=== PATIENT | male | born 1950 | race Caucasian/White ===

== ENCOUNTER 2019-12-10 09:14 | Inpatient (IN) ==
--- NOTE | 2019-12-10 09:43 | Emergency Department Note ---
Impression & Plan COVID-19 virus detected, Fever, Acute dehydration ED Provider Note NAME: JB MELTON AGE: 69 SEX: M : 1950 ARRIVES VIA: Ambulance INFORMANT: Patient, ED PROVIDER(S): John Vance MD Chief Complaint: Fever, lethargy HPI: Most of history is obtained from nursing and the history is limited. Patient does present from one went home where there are coronavirus cases due to concern for fever and lethargy. The patient does open eyes to voice and will answer basic questions and follow basic commands. The patient apparently has had some dehydration type symptoms. Unknown as to the total length of fever. ROS: Limited secondary to patient clinical condition. Past medical history: See below Surgical history: See below Social history: See below Physical Exam: GENERAL: Ill in appearance, wearing a mask. EYE EXAM: Normal conjunctiva. PERRL, no anisocoria, mild bilateral clear drainage without proptosis or preseptal cellulitis. OROPHARYNX: Dry mucous membranes noted. NECK: Supple, no nuchal rigidity, no adenopathy, non-tender. No signs of meningismus. LUNGS: Normal chest wall mechanics, no audible wheezing. HEART: NSR. ABDOMEN: Abdomen soft, non-tender, normo-active bowel sounds, no masses, no rebound or guarding. BACK: No CVA TTP. SKIN: No rashes and no bruising. UPPER EXTREMITIES: Upper extremities are grossly normal. LOWER EXTREMITIES: Left BKA, and right TMA noted. No obvious wounds. NEURO EXAM: Opens eyes to voice, name and date of is appropriate, follows basic commands and does move all 4 extremities weakly but with no focal deficit no obvious facial droop. Differential diagnoses: Sepsis, UTI, pneumonia, metabolic, electrolyte abnormalities, cardiac sources, intracerebral event, toxicologic, neurologic, as well as other pathologies. Course: Patient was seen and evaluated the bedside. Full history physical exam was performed. EKG: Indication: Fever Normal sinus rhythm, rate 95, normal intervals, normal axis, no ST changes or T WI. No prior EKGs for comparison. Imaging Studies: Radiology results as stated below per my review in the radiologist's i nterpretation: XR chest 1V portable HISTORY: SEPSIS COMPARISON: None. FINDINGS: Slightly rotated study. This likely results in the hazy appearance within the left hemithorax. A few bibasilar linear densities favor subsegmental atelectasis or scarring. Suspect a punctate calcified granuloma within the right lung base. Old, healed right-sided rib fractures. The heart is normal in size. Mitral annulus calcifications are noted. IMPRESSION: No acute process. ACT 112: Negative or not required by law. Electronically signed by: Lane Leavitt M.D. 12/10/2019 10:37 AM Dictated: 12/10/19 1036 Transcribed: 12/10/19 1036 Cardiac monitoring: An order was placed for continuous cardiac monitoring. The monitor shows a rate of 94 with sinus rhythm. MDM: Patient does present from [facility] due to concern for lethargy and weakness. Patient also does have fever. Patient was placed in isolation for PPE was worn in the patient's room. Patient's white blood cell count is normal with mild lymphopenia. Virtually normal hemoglobin but slightly anemic at 13. Kidney function is unremarkable but likely prerenal. Patient did receive IV fluids. Procalcitonin is slightly elevated at 1.6. Magnesium is elevated. The patient's coronavirus testing is positive. Negative for flu. MRSA negative. Patient had empirically received Zosyn but his chest x-ray is negative. I did speak to the on-call hospitalist Dr. Monson who agreed to further evaluate. Treat patient. Patient was admitted to the medicine service. Past Med/Surg History Social History Preferred Language: Bahamian Communication Ability: Impaired Communication Ability Comment: responds at joan [employer] Ce[employer] & President Required: No Beliefs That Will Affect Care: None Current Living Situation: Personal Care Facility Current Living Situation Comment: [facility] Feels Safe at Home: Yes Safety Concerns: Feels Safe At This Time Smoking Status: Never smoker Do You Dip or Chew Tobacco: No ; Second Hand Exposure: No ; Tobacco Cessation Education Requested by Patient: No Hx Alcohol Use: No Allergies Allergies Allergy/AdvReac Type Severity Reaction Status Date / Time Unable to Assess Allergy Unverified 12/10/19 11:37 Home Meds Home Medications Medication Instructions Recorded Confirmed Unobtainable 12/10/19 12/10/19 Results & Data (ED) Vital Signs Vital Signs - 24 hr 12/10/19 09:14 12/10/19 09:15 12/10/19 09:36 Temperature 37.6 C H Temperature Source Oral Pulse Rate 92 H 97 H 98 H Pulse Rate from SpO2 Sensor 98 H Respiratory Rate 24 20 21 Respiratory Effort / Characteristics Non-Labored Respiratory Depth Normal Blood Pressure 101/80 101/80 Blood Pressure Mean 87 95 Pulse Oximetry 95 98 94 Oxygen Delivery Method Nasal Cannula Room Air Nasal Cannula Oxygen Flow Rate 2 2 Sepsis Recent Fever Within 48 Hours Yes Sepsis Action Taken by Nursing No Action Required 12/10/19 09:41 12/10/19 09:45 12/10/19 09:58 Temperature Temperature Source Pulse Rate 101 H 98 H 100 H Pulse Rate from SpO2 Sensor 102 H 98 H 100 H Respiratory Rate 21 19 20 Respiratory Effort / Characteristics Respiratory Depth Blood Pressure 128/101 H Blood Pressure Mean 107 Pulse Oximetry 96 97 98 Oxygen Delivery Method Nasal Cannula Nasal Cannula Nasal Cannula Oxygen Flow Rate 2 2 2 Sepsis Recent Fever Within 48 Hours Sepsis Action Taken by Nursing 12/10/19 10:00 12/10/19 10:01 12/10/19 10:15 Temperature Temperature Source Pulse Rate 95 H 94 H 93 H Pulse Rate from SpO2 Sensor 95 H 95 H 94 H Respiratory Rate 17 18 17 Respiratory Effort / Characteristics Respiratory Depth Blood Pressure 146/93 H Blood Pressure Mean 109 Pulse Oximetry 98 98 98 Oxygen Delivery Method Nasal Cannula Nasal Cannula Nasal Cannula Oxygen Flow Rate 2 2 2 Sepsis Recent Fever Within 48 Hours Sepsis Action Taken by Nursing 12/10/19 10:30 12/10/19 10:45 12/10/19 11:00 Temperature Temperature Source Pulse Rate 92 H 93 H 92 H Pulse Rate from SpO2 Sensor 92 H 93 H 92 H Respiratory Rate 24 25 H 24 Respiratory Effort / Characteristics Respiratory Depth Blood Pressure Blood Pressure Mean Pulse Oximetry 98 98 98 Oxygen Delivery Method Nasal Cannula Nasal Cannula Nasal Cannula Oxygen Flow Rate 2 2 2 Sepsis Recent Fever Within 48 Hours Sepsis Action Taken by Nursing 12/10/19 11:15 12/10/19 11:27 12/10/19 11:30 Temperature Temperature Source Pulse Rate 85 92 H 89 Pulse Rate from SpO2 Sensor 85 93 H 89 Respiratory Rate 20 22 24 Respiratory Effort / Characteristics Respiratory Depth Blood Pressure 170/60 H 150/63 H Blood Pressure Mean 91 96 Pulse Oximetry 99 98 98 Oxygen Delivery Method Nasal Cannula Nasal Cannula Nasal Cannula Oxygen Flow Rate 2 2 2 Sepsis Recent Fever Within 48 Hours Sepsis Action Taken by Nursing 12/10/19 11:31 12/10/19 11:45 12/10/19 12:00 Temperature Temperature Source Pulse Rate 86 86 91 H Pulse Rate from SpO2 Sensor 87 86 91 H Respiratory Rate 23 22 22 Respiratory Effort / Characteristics Respiratory Depth Blood Pressure Blood Pressure Mean Pulse Oximetry 98 97 97 Oxygen Delivery Method Nasal Cannula Nasal Cannula Nasal Cannula Oxygen Flow Rate 2 2 2 Sepsis Recent Fever Within 48 Hours Sepsis Action Taken by Nursing 12/10/19 12:01 12/10/19 12:02 12/10/19 12:15 Temperature Temperature Source Pulse Rate 91 H 87 88 Pulse Rate from SpO2 Sensor 92 H 87 87 Respiratory Rate 22 24 24 Respiratory Effort / Characteristics Respiratory Depth Blood Pressure 129/92 Blood Pressure Mean 101 Pulse Oximetry 97 97 96 Oxygen Delivery Method Nasal Cannula Nasal Cannula Nasal Cannula Oxygen Flow Rate 2 2 2 Sepsis Recent Fever Within 48 Hours Sepsis Action Taken by Nursing 12/10/19 12:30 12/10/19 12:31 12/10/19 12:45 Temperature Temperature Source Pulse Rate 92 H 88 84 Pulse Rate from SpO2 Sensor 91 H 88 85 Respiratory Rate 19 14 19 Respiratory Effort / Characteristics Respiratory Depth Blood Pressure 143/111 H Blood Pressure Mean 117 Pulse Oximetry 96 96 98 Oxygen Delivery Method Nasal Cannula Nasal Cannula Oxygen Flow Rate 2 2 Sepsis Recent Fever Within 48 Hours Sepsis Action Taken by Shelter Medications Current Medication List: was personally reviewed by me Laboratory Data Attestation: I reviewed the patient's lab results. Result diagrams: 12/10/19 09:45 12/10/19 09:45 Lab Results 12/10/19 12/10/19 12/10/19 Range/Units 09:39 09:40 09:40 WBC (4.8-10.8) K/uL RBC (4.7-6.1) M/uL Hgb (14.0-18.0) g/dL Hct (42-52) % MCV (80-100) fL MCH (25-34) pg MCHC (32-36) g/dL RDW Std Deviation (36.4-46.3) fL RDW Coeff of Jace (11.5-14.5) % Plt Count (130-400) K/uL MPV (7.4-10.4) fL Immature Gran % (Auto) % Neut % (Auto) % Lymph % (Auto) % Hopkins % (Auto) % Eos % (Auto) % Baso % (Auto) % Immature Gran # (Auto) (0.00-0.02) K/uL Neut # (Auto) (1.4-6.5) K/uL Lymph # (Auto) (1.2-3.4) K/uL Hopkins # (Auto) (0.11-0.59) K/uL Eos # (Auto) (0-0.5) K/uL Baso # (Auto) (0-0.2) K/uL ESR (0-14) mm/hr PT (9.0-12.0) Seconds INR (0.9-1.1) APTT (21.0-31.0) Seconds PTT Ratio D-Dimer (0-500) ug/L FEU Sodium (136-145) mmol/L Potassium (3.5-5.1) mmol/L Chloride (98-107) mmol/L Carbon Dioxide (21-32) mmol/L Anion Gap (3-11) BUN (7-18) mg/dl Creatinine (0.6-1.4) mg/dl Est Cr Clr Drug Dosing ml/min Est GFR ( Amer) Est GFR (Non-Af Amer) BUN/Creatinine Ratio (10-20) Glucose (70-99) mg/dl POC Glucose 177 H (70-99) mg/dl Lactate (0.4-2.0) mmol/L Calcium (8.5-10.1) mg/dl Magnesium (1.8-2.4) mg/dl Ferritin (8-388) ng/ml Total Bilirubin (0.2-1) mg/dl AST (15-37) U/L ALT (12-78) U/L Alkaline Phosphatase (45-117) U/L Troponin I (0-0.045) ng/ml C-Reactive Protein (0-0.29) mg/dl Total Protein (6.4-8.2) gm/dl Albumin (3.4-5.0) gm/dl Globulin (2.5-4.0) gm/dl Albumin/Globulin Ratio (0.9-2) 25-OH Vitamin D Total (30-100) ng/ml Procalcitonin Specimen Hemolysis Nasal Screen MRSA (PCR) (Negative) COVID-19 PCR POSITIVE A* (Negative) Influenza Type A (PCR) Neg for Influ A (Neg) Influenza Type B (PCR) Neg for Influ B (Neg) 12/10/19 12/10/19 12/10/19 Range/Units 09:45 09:45 09:45 WBC 6.19 (4.8-10.8) K/uL RBC 4.42 L (4.7-6.1) M/uL Hgb 13.1 L (14.0-18.0) g/dL Hct 38.1 L (42-52) % MCV 86.2 (80-100) fL MCH 29.6 (25-34) pg MCHC 34.4 (32-36) g/dL RDW Std Deviation 44.5 (36.4-46.3) fL RDW Coeff of Jace 14.1 (11.5-14.5) % Plt Count 235 (130-400) K/uL MPV 9.9 (7.4-10.4) fL Immature Gran % (Auto) 0.2 % Neut % (Auto) 74.7 % Lymph % (Auto) 17.0 % Hopkins % (Auto) 7.9 % Eos % (Auto) 0.0 % Baso % (Auto) 0.2 % Immature Gran # (Auto) 0.01 (0.00-0.02) K/uL Neut # (Auto) 4.63 (1.4-6.5) K/uL Lymph # (Auto) 1.05 L (1.2-3.4) K/uL Hopkins # (Auto) 0.49 (0.11-0.59) K/uL Eos # (Auto) 0.00 (0-0.5) K/uL Baso # (Auto) 0.01 (0-0.2) K/uL ESR (0-14) mm/hr PT 9.9 (9.0-12.0) Seconds INR 0.9 (0.9-1.1) APTT 25.3 (21.0-31.0) Seconds PTT Ratio 0.9 D-Dimer (0-500) ug/L FEU Sodium (136-145) mmol/L Potassium (3.5-5.1) mmol/L Chloride (98-107) mmol/L Carbon Dioxide (21-32) mmol/L Anion Gap (3-11) BUN (7-18) mg/dl Creatinine (0.6-1.4) mg/dl Est Cr Clr Drug Dosing ml/min Est GFR ( Amer) Est GFR (Non-Af Amer) BUN/Creatinine Ratio (10-20) Glucose (70-99) mg/dl POC Glucose (70-99) mg/dl Lactate (0.4-2.0) mmol/L Calcium (8.5-10.1) mg/dl Magnesium (1.8-2.4) mg/dl Ferritin (8-388) ng/ml Total Bilirubin (0.2-1) mg/dl AST (15-37) U/L ALT (12-78) U/L Alkaline Phosphatase (45-117) U/L Troponin I (0-0.045) ng/ml C-Reactive Protein (0-0.29) mg/dl Total Protein (6.4-8.2) gm/dl Albumin (3.4-5.0) gm/dl Globulin (2.5-4.0) gm/dl Albumin/Globulin Ratio (0.9-2) 25-OH Vitamin D Total (30-100) ng/ml Procalcitonin Cancelled Specimen Hemolysis Nasal Screen MRSA (PCR) (Negative) COVID-19 PCR (Negative) Influenza Type A (PCR) (Neg) Influenza Type B (PCR) (Neg) 12/10/19 12/10/19 12/10/19 Range/Units 09:45 09:45 10:38 WBC (4.8-10.8) K/uL RBC (4.7-6.1) M/uL Hgb (14.0-18.0) g/dL Hct (42-52) % MCV (80-100) fL MCH (25-34) pg MCHC (32-36) g/dL RDW Std Deviation (36.4-46.3) fL RDW Coeff of Jace (11.5-14.5) % Plt Count (130-400) K/uL MPV (7.4-10.4) fL Immature Gran % (Auto) % Neut % (Auto) % Lymph % (Auto) % Hopkins % (Auto) % Eos % (Auto) % Baso % (Auto) % Immature Gran # (Auto) (0.00-0.02) K/uL Neut # (Auto) (1.4-6.5) K/uL Lymph # (Auto) (1.2-3.4) K/uL Hopkins # (Auto) (0.11-0.59) K/uL Eos # (Auto) (0-0.5) K/uL Baso # (Auto) (0-0.2) K/uL ESR 81 H (0-14) mm/hr PT (9.0-12.0) Seconds INR (0.9-1.1) APTT (21.0-31.0) Seconds PTT Ratio D-Dimer (0-500) ug/L FEU Sodium 137 (136-145) mmol/L Potassium 4.5 (3.5-5.1) mmol/L Chloride 106 (98-107) mmol/L Carbon Dioxide 24 (21-32) mmol/L Anion Gap 8.0 (3-11) BUN 39 H (7-18) mg/dl Creatinine 1.13 (0.6-1.4) mg/dl Est Cr Clr Drug Dosing 56.0 ml/min Est GFR ( Amer) 77.0 Est GFR (Non-Af Amer) 66.4 BUN/Creatinine Ratio 34.5 H (10-20) Glucose 202 H (70-99) mg/dl POC Glucose (70-99) mg/dl Lactate 1.2 (0.4-2.0) mmol/L Calcium 9.5 (8.5-10.1) mg/dl Magnesium 2.9 H (1.8-2.4) mg/dl Ferritin (8-388) ng/ml Total Bilirubin 0.4 (0.2-1) mg/dl AST 41 H (15-37) U/L ALT 25 (12-78) U/L Alkaline Phosphatase 103 (45-117) U/L Troponin I < 0.015 (0-0.045) ng/ml C-Reactive Protein (0-0.29) mg/dl Total Protein 7.9 (6.4-8.2) gm/dl Albumin 3.2 L (3.4-5.0) gm/dl Globulin 4.7 H (2.5-4.0) gm/dl Albumin/Globulin Ratio 0.7 L (0.9-2) 25-OH Vitamin D Total (30-100) ng/ml Procalcitonin Specimen Hemolysis Nasal Screen MRSA (PCR) (Negative) COVID-19 PCR (Negative) Influenza Type A (PCR) (Neg) Influenza Type B (PCR) (Neg) 12/10/19 12/10/19 12/10/19 Range/Units 10:39 10:39 10:44 WBC (4.8-10.8) K/uL RBC (4.7-6.1) M/uL Hgb (14.0-18.0) g/dL Hct (42-52) % MCV (80-100) fL MCH (25-34) pg MCHC (32-36) g/dL RDW Std Deviation (36.4-46.3) fL RDW Coeff of Jace (11.5-14.5) % Plt Count (130-400) K/uL MPV (7.4-10.4) fL Immature Gran % (Auto) % Neut % (Auto) % Lymph % (Auto) % Hopkins % (Auto) % Eos % (Auto) % Baso % (Auto) % Immature Gran # (Auto) (0.00-0.02) K/uL Neut # (Auto) (1.4-6.5) K/uL Lymph # (Auto) (1.2-3.4) K/uL Hopkins # (Auto) (0.11-0.59) K/uL Eos # (Auto) (0-0.5) K/uL Baso # (Auto) (0-0.2) K/uL ESR (0-14) mm/hr PT (9.0-12.0) Seconds INR (0.9-1.1) APTT (21.0-31.0) Seconds PTT Ratio D-Dimer [id number] H* (0-500) ug/L FEU Sodium (136-145) mmol/L Potassium (3.5-5.1) mmol/L Chloride (98-107) mmol/L Carbon Dioxide (21-32) mmol/L Anion Gap (3-11) BUN (7-18) mg/dl Creatinine (0.6-1.4) mg/dl Est Cr Clr Drug Dosing ml/min Est GFR ( Amer) Est GFR (Non-Af Amer) BUN/Creatinine Ratio (10-20) Glucose (70-99) mg/dl POC Glucose (70-99) mg/dl Lactate (0.4-2.0) mmol/L Calcium (8.5-10.1) mg/dl Magnesium (1.8-2.4) mg/dl Ferritin (8-388) ng/ml Total Bilirubin (0.2-1) mg/dl AST (15-37) U/L ALT (12-78) U/L Alkaline Phosphatase (45-117) U/L Troponin I (0-0.045) ng/ml C-Reactive Protein (0-0.29) mg/dl Total Protein (6.4-8.2) gm/dl Albumin (3.4-5.0) gm/dl Globulin (2.5-4.0) gm/dl Albumin/Globulin Ratio (0.9-2) 25-OH Vitamin D Total 23.0 L (30-100) ng/ml Procalcitonin 0.64 H Specimen Hemolysis Nasal Screen MRSA (PCR) (Negative) COVID-19 PCR (Negative) Influenza Type A (PCR) (Neg) Influenza Type B (PCR) (Neg) 12/10/19 12/10/19 Range/Units 10:44 11:15 WBC (4.8-10.8) K/uL RBC (4.7-6.1) M/uL Hgb (14.0-18.0) g/dL Hct (42-52) % MCV (80-100) fL MCH (25-34) pg MCHC (32-36) g/dL RDW Std Deviation (36.4-46.3) fL RDW Coeff of Jace (11.5-14.5) % Plt Count (130-400) K/uL MPV (7.4-10.4) fL Immature Gran % (Auto) % Neut % (Auto) % Lymph % (Auto) % Hopkins % (Auto) % Eos % (Auto) % Baso % (Auto) % Immature Gran # (Auto) (0.00-0.02) K/uL Neut # (Auto) (1.4-6.5) K/uL Lymph # (Auto) (1.2-3.4) K/uL Hopkins # (Auto) (0.11-0.59) K/uL Eos # (Auto) (0-0.5) K/uL Baso # (Auto) (0-0.2) K/uL ESR (0-14) mm/hr PT (9.0-12.0) Seconds INR (0.9-1.1) APTT (21.0-31.0) Seconds PTT Ratio D-Dimer (0-500) ug/L FEU Sodium (136-145) mmol/L Potassium (3.5-5.1) mmol/L Chloride (98-107) mmol/L Carbon Dioxide (21-32) mmol/L Anion Gap (3-11) BUN (7-18) mg/dl Creatinine (0.6-1.4) mg/dl Est Cr Clr Drug Dosing ml/min Est GFR ( Amer) Est GFR (Non-Af Amer) BUN/Creatinine Ratio (10-20) Glucose (70-99) mg/dl POC Glucose (70-99) mg/dl Lactate (0.4-2.0) mmol/L Calcium (8.5-10.1) mg/dl Magnesium (1.8-2.4) mg/dl Ferritin 471.4 H (8-388) ng/ml Total Bilirubin (0.2-1) mg/dl AST (15-37) U/L ALT (12-78) U/L Alkaline Phosphatase (45-117) U/L Troponin I (0-0.045) ng/ml C-Reactive Protein 3.49 H (0-0.29) mg/dl Total Protein (6.4-8.2) gm/dl Albumin (3.4-5.0) gm/dl Globulin (2.5-4.0) gm/dl Albumin/Globulin Ratio (0.9-2) 25-OH Vitamin D Total (30-100) ng/ml Procalcitonin Specimen Hemolysis Nasal Screen MRSA (PCR) Negative (Negative) COVID-19 PCR (Negative) Influenza Type A (PCR) (Neg) Influenza Type B (PCR) (Neg) Administered Medications Discontinued Medications Sodium Chloride (Nss 1000ml) 1,000 mls @ 999 mls/hr IV .[id number] ONE Stop: 12/10/19 10:57 Last Infusion: 12/10/19 11:01 Dose: 0 mls/hr Documented by: [id number] Admin: 12/10/19 10:00 Dose: 999 mls/hr Documented by: [id number] Piperacillin Sod/Tazobactam Sod (Zosyn) 4.5 gm in 120 mls @ 240 mls/hr IV NOW ONE Stop: 12/10/19 10:26 Last Infusion: 12/10/19 11:39 Dose: 0 mls/hr Documented by: [id number] Admin: 12/10/19 11:09 Dose: 240 mls/hr Documented by: [id number] Discharge Plan Visit Data Chief Complaint: Fever ED Provider: John Vance Discharge Problem: COVID-19 virus detected, Fever, Acute dehydration Discharge Instructions Interventions: ED Discharge Assessment Last Done: 12/10/19 13:31 Discharge Problem: Fever Qualifiers: Fever type: unspecified Qualified Code(s): R50.9 - Fever, unspecified
[2019-12-10] MEDS ORDERED: PIPERACILL/TAZOBAC CONSULT ACTIVE PRN (09:57)
[2019-12-10] MEDS ORDERED: PIPERACILLIN/TAZOBACTAM 4.5 GM/120 ML BAG IV ONE (09:57)
[2019-12-10] MEDS ORDERED: SODIUM CHLORIDE 0.9% 1000ML 1,000 ML IV ONE (09:57)
[2019-12-10 10:14] LABS: Basophils # (auto) 0.01 K/uL (0-0.2); Basophils % (auto) 0.2 %; Hematocrit (blood only) 38.1 % (42-52); Hemoglobin 13.1 g/dL (14.0-18.0); Immature Granulocytes # (auto) 0.01 K/uL (0.00-0.02); Immature Granulocytes % (auto) 0.2 %; Lymphocytes # (auto) 1.05 K/uL (1.2-3.4); Mean Corpuscular Hemoglobin 29.6 pg (25-34); Mean Corpuscular Hgb Conc 34.4 g/dL (32-36); Mean Corpuscular Volume 86.2 fL (80-100); Mean Platelet Volume 9.9 fL (7.4-10.4); Monocytes # (auto) 0.49 K/uL (0.11-0.59); Monocytes % (auto) 7.9 %; Neutrophils # (auto) 4.63 K/uL (1.4-6.5); Neutrophils % (auto) 74.7 %; Platelet Count 235 K/uL (130-400); RDW Coefficient of Variation 14.1 % (11.5-14.5); RDW Standard Deviation 44.5 fL (36.4-46.3); Red Blood Count 4.42 M/uL (4.7-6.1); White Blood Count 6.19 K/uL (4.8-10.8)
[2019-12-10 10:27] LABS: INR 0.9 (0.9-1.1); Partial Thromboplastin Ratio 0.9; Partial Thromboplastin Time 25.3 Seconds (21.0-31.0); Prothrombin Time 9.9 Seconds (9.0-12.0)
[2019-12-10 10:35] LABS: Alanine Aminotransferase 25 U/L (12-78); Albumin Globulin Ratio 0.7 (0.9-2); Albumin Level 3.2 gm/dl (3.4-5.0); Alkaline Phosphatase 103 U/L (45-117); Aspartate Aminotransferase 41 U/L (15-37); BUN Creatinine Ratio 34.5 (10-20); Bilirubin,Total 0.4 mg/dl (0.2-1); Blood Urea Nitrogen 39 mg/dl (7-18); Calcium 9.5 mg/dl (8.5-10.1); Carbon Dioxide 24 mmol/L (21-32); Chloride 106 mmol/L (98-107); Est GFR (Non-African American) 66.4; Globulin 4.7 gm/dl (2.5-4.0); Glucose 202 mg/dl (70-99); Magnesium 2.9 mg/dl (1.8-2.4); Potassium 4.5 mmol/L (3.5-5.1); Sodium 137 mmol/L (136-145); Total Protein 7.9 gm/dl (6.4-8.2); Troponin I < 0.015 ng/ml (0-0.045)
--- NOTE | 2019-12-10 10:38 | XRay Report ---
XR chest 1V portable HISTORY: SEPSIS COMPARISON: None. FINDINGS: Slightly rotated study. This likely results in the hazy appearance within the left hemithor ax. A few bibasilar linear densities favor subsegmental atelectasis or scarring. Suspect a punctate c alcified granuloma within the right lung base. Old, healed right-sided rib fractures. The heart is no rmal in size. Mitral annulus calcifications are noted. IMPRESSION: No acute process. ACT 112: Negative or not required by law. Electronically signed by: Lane Leavitt M.D. 12/10/2019 10:37 AM
[2019-12-10 10:58] LABS: Influenza A virus by PCR Neg for Influ A (Neg); Influenza B virus by PCR Neg for Influ B (Neg)
--- NOTE | 2019-12-10 12:42 | History & Physical Report ---
Date of Service December 10, 2019 Assessment & Plan (1) Sepsis: 2/2 COVID. Meets criteria. Cont supportive care plan below. Cont IVF. Lactate within normal limits. (2) COVID-19 virus detected: (3) Fever: Fever 2/2 novel coronavirus. Currently oxygenating well on room air. No investigational therapies offered at this time including convalescent plasma as patient is not pre-ICU status. May consider if he develops pulmonary infiltrates, increased oxygen needs or worsening clinical picture. However, ability to consent may be questionable. Very limited documentation came from [facility]. There is no clear history or code status in the paperwork sent over, there are no listed family members to update. He is different from his baseline so expect improvement clinically with time and supportive care. If he doesn't improve tomorrow, may need to contact [facility] for further information. As D-dimer was 13K, he was started on empiric Lovenox therapy. (4) Bipolar 1 disorder: Cont seroquel per home regimen. (5) DMII (diabetes mellitus, type 2): Cont insulin with both Lantus at home dose and carb coverage/CF as needed with Novolog. A1C in am. (6) HTN (hypertension): Around goal, cont home dose of losartan. (7) Vitamin D deficiency: ergocalciferol for replacement (8) DVT prophylaxis: Lovenox as above Full Code-patient was unable to confirm code status on admission. Dispo-cont telemetry monitoring for now. There are limited records-he is not in [facility] (outpatient system) and has not been to this hospital previously. Frances Monson DO [facility] Hospitalist History of Present Illness Chief Complaint: fever, lethargy Primary Care Provider: [facility] 69 yo M presented to the ER with fever and lethargy. Cannot obtain a history from the patient so uncertain how long this has been going on. He is febrile to 39.3C and was given Tylenol. He is answering questions appropriately and appears to be oriented when he decides to answer. He is fatigued with his eyes closed during the majority of the interview. He is s/p L BKA and R toe amputati on. Contacted staff at [facility] who states he has been lethargic with intermittent restlessness, feverish and with decreased PO intake for the past 3- 4 days. They state he usually holds a conversation and is oriented x 3 at baseline. He occasionally needs assistance with transfers into and out of his wheelchair, but sometimes can manage on his own. He has a h/o bipolar disorder. Workup revealed a clear chest xray, no leukocytosis and the patient doesn't appears septic. COVID-19 is positive. He denies tobacco use or alcohol use. ROS is fairly limited but he denies pain or nausea. He is able to swallow pills in applesauce. Allergies Allergy/AdvReac Type Severity Reaction Status Date / Time Unable to Assess Allergy Unverified 12/10/19 11:37 Home Medications Home Medications Medication Instructions Recorded Confirmed Type cholecalciferol (vitamin D3) 25 mcg PO DAILY 12/10/19 12/10/19 History insulin glargine [Lantus U-100 24 unit SUBCUT HS 12/10/19 12/10/19 History Insulin] insulin lispro [Humalog U-100 4 unit SUBCUT DAILY@1100 12/10/19 12/10/19 History Insulin] insulin lispro [Humalog U-100 6 unit SUBCUT BIDM 12/10/19 12/10/19 History Insulin] losartan 100 mg PO DAILY 12/10/19 12/10/19 History quetiapine 12.5 mg PO BID 12/10/19 12/10/19 History quetiapine 25 mg PO HS 12/10/19 12/10/19 History sennosides [senna] 8.6 mg PO DAILY 12/10/19 12/10/19 History sertraline 25 mg PO HS 12/10/19 12/10/19 History Past Med/Surg History Medical History Bipolar 1 disorder DMII (diabetes mellitus, type 2) HTN (hypertension) Status post amputation of toe of left foot Surgical History Status post below-knee amputation of left lower extremity Family History (Updated 12/10/19 @ 18:54 by Frances Monson DO) Other Family history unobtainable due to patient's condition Social History Preferred Language: Indonesian Communication Ability: Impaired Communication Ability Comment: responds at joan Stockroom Attendant Required: No Beliefs That Will Affect Care: None Current Living Situation: Personal Care Facility Current Living Situation Comment: [facility] Feels Safe at Home: Yes Safety Concerns: Feels Safe At This Time Smoking Status: Never smoker Do You Dip or Chew Tobacco: No ; Second Hand Exposure: No ; Tobacco Cessation Education Requested by Patient: No Hx Alcohol Use: No Review of Systems Review of Systems: Other (limited 2/2 fever and malaise) Physical Exam Physical Exam: CONSTITUTIONAL: WNWD, vitals as above, generally ill-appearing EYES: PERRL, normal conjunctivae, no scleral icterus ENT: external ear and nose normal, MMM, pt would not open mouth wide enough to visualize oropharynx NECK: trachea midline, no lymphadenopathy RESPIRATORY: clear to auscultation bilaterally, no crackles, rales or wheezes, normal respiratory effort CARDIOVASCULAR: regular rate and rhythm, S1 and 2 heard without murmurs, gallops or rubs, no JVD, no peripheral edema GASTROINTESTINAL: soft, nontender, nondistended MUSCULOSKELETAL: weak, limited exam 2/2/ malaise, L BKA, R midfoot amputation. head is normocephalic and atraumatic SKIN: warm and dry NEUROLOGIC: lethargic and patient not cooperating with exam so limited. PSYCHIATRIC: alert and minimally cooperative likely 2/2 malaise. Appears to understand he is in the hospital. Results & Data Results & Data ([facility]) Vital Signs (Past 12 Hours) Vital Signs Temp Pulse Resp BP Pulse Ox 12/10/19 12:01 91 H 22 129/92 97 12/10/19 12:00 91 H 22 97 12/10/19 11:45 86 22 97 12/10/19 11:31 86 23 98 12/10/19 11:30 89 24 150/63 H 98 12/10/19 11:27 92 H 22 170/60 H 98 12/10/19 11:15 85 20 99 12/10/19 11:00 92 H 24 98 12/10/19 10:45 93 H 25 H 98 12/10/19 10:30 92 H 24 98 12/10/19 10:15 93 H 17 98 12/10/19 10:01 94 H 18 98 12/10/19 10:00 95 H 17 146/93 H 98 12/10/19 09:58 100 H 20 128/101 H 98 12/10/19 09:45 98 H 19 97 12/10/19 09:41 101 H 21 96 12/10/19 09:36 98 H 21 101/80 94 12/10/19 09:15 37.6 C H 97 H 20 101/80 98 12/10/19 09:14 92 H 24 95 Laboratory Results Short CBC 12/10/19 Range/Units 09:45 WBC 6.19 (4.8-10.8) K/uL Hgb 13.1 L (14.0-18.0) g/dL Hct 38.1 L (42-52) % Plt Count 235 (130-400) K/uL BMP 12/10/19 09:45 Sodium 137 Potassium 4.5 Chloride 106 Carbon Dioxide 24 BUN 39 H Creatinine 1.13 Glucose 202 H Calcium 9.5 Cardiac Enzymes 12/10/19 Range/Units 09:45 Troponin I < 0.015 (0-0.045) ng/ml Liver Function 12/10/19 Range/Units 09:45 Total Bilirubin 0.4 (0.2-1) mg/dl AST 41 H (15-37) U/L ALT 25 (12-78) U/L Alkaline Phosphatase 103 (45-117) U/L Albumin 3.2 L (3.4-5.0) gm/dl (1) Fever Fever type: unspecified Qualified Code(s): R50.9 - Fever, unspecified
[2019-12-10 13:16] LABS: D Dimer 13730 ug/L FEU (0-500)
[2019-12-10 13:34] LABS: C Reactive Protein 3.49 mg/dl (0-0.29); Ferritin 471.4 ng/ml (8-388)
--- NOTE | 2019-12-10 14:33 | Electrocardiogram Report ---
Test Reason : Blood Pressure : / mmHG Vent. Rate : 095 BPM Atrial Rate : 095 BPM P-R Int : 130 ms QRS Dur : 086 ms QT Int : 360 ms P-R-T Axes : 074 072 063 degrees QTc Int : 452 ms Poor data quality, interpretation may be adversely affected Normal sinus rhythm Normal ECG No previous ECGs available Confirmed by Jeff Gonzales ([id number]) on 12/10/2019 2:32:43 PM Referred By: REFERRED SELF Confirmed By:Jeff Gonzales
[2019-12-10] MEDS ORDERED: ENOXAPARIN INJ 60 MG/0.6 ML SYR SQ ONE (15:15)
[2019-12-10] MEDS ORDERED: ONDANSETRON INJ 2 MG/ML 2 ML VIAL IV PRN (15:29)
[2019-12-10] MEDS: SODIUM CHLORIDE 0.9% 1000ML 1,000 ML IV SCH ×2 (16:00→23:58)
[2019-12-10] MEDS: ACETAMINOPHEN 325 MG TAB PO PRN (16:13)
[2019-12-10] MEDS ORDERED: GLUCOSE 40% GEL 15 GM TUBE PO PRN (17:31)
[2019-12-10] MEDS ORDERED: GLUCOSE 10 TABS/TUBE PO PRN (17:31)
[2019-12-10] MEDS ORDERED: GLUCAGON FOR INJ 1 MG VIAL SQ PRN (17:31)
[2019-12-10] MEDS ORDERED: INSULIN GLARGINE SOLOSTAR 100 UNITS/ML 3 ML PEN SC SCH (21:00)
[2019-12-10] MEDS ORDERED: ACETAMINOPHEN 10MG/ML PEDIATRIC DOSING IV PRN (21:13)
[2019-12-10] MEDS: INSULIN ASPART 100 UNITS/ML 3 ML PEN SC SCH (21:30)
[2019-12-10] MEDS: SERTRALINE HCL 50 MG TABLET PO SCH ×2 (21:39→22:35)
[2019-12-10] MEDS: QUETIAPINE FUMARATE 25 MG TABLET PO SCH ×2 (21:39→22:35)
[2019-12-10] MEDS: ACETAMINOPHEN 1,000 MG/100 ML VIAL IV PRN (22:10)
[2019-12-10 23:02] LABS: Appearance Urine Clear (Clear); Bacteria Urine Automated Negative (Negative); Bilirubin Urine Negative (Negative); Blood Urine 1+ (Negative); Color Urine Yellow; Glucose Urine UA 1+ (Negative); Ketones Urine 1+ (Negative); Leukocyte Esterase Urine Negative (Negative); Nitrite Urine Negative (Negative); Protein Urine 2+ (Negative); Specific Gravity Urine 1.021 (1.000-1.030); Urobilinogen Urine Negative (Negative); pH Urine 6.5 (4.5-7.5)
[2019-12-11] MEDS: ACETAMINOPHEN 1,000 MG/100 ML VIAL IV PRN ×2 (04:28→12:58)
[2019-12-11 05:54] LABS: Hematocrit (blood only) 34.1 % (42-52); Hemoglobin 11.2 g/dL (14.0-18.0); Mean Corpuscular Hemoglobin 28.6 pg (25-34); Mean Corpuscular Hgb Conc 32.8 g/dL (32-36); Mean Platelet Volume 9.6 fL (7.4-10.4); Platelet Count 204 K/uL (130-400); RDW Coefficient of Variation 14.3 % (11.5-14.5); RDW Standard Deviation 45.9 fL (36.4-46.3); Red Blood Count 3.92 M/uL (4.7-6.1); White Blood Count 7.19 K/uL (4.8-10.8)
[2019-12-11] MEDS ORDERED: ENOXAPARIN INJ 60 MG/0.6 ML SYR SQ SCH (06:00)
[2019-12-11 06:09] LABS: Estimated Average Glucose 217 mg/dl; Hemoglobin A1C 9.2 % (4.5-5.6)
[2019-12-11 06:26] LABS: BUN Creatinine Ratio 26.9 (10-20); Calcium 7.9 mg/dl (8.5-10.1); Creatinine Clr Calc Pharmacy 68.3 ml/min; Est GFR (African American) 98.7; Est GFR (Non-African American) 85.2; Potassium 3.9 mmol/L (3.5-5.1)
[2019-12-11] MEDS: LOSARTAN POTASSIUM 50 MG TAB PO SCH ×2 (07:25→07:31)
[2019-12-11] MEDS: SENNA 8.6 MG TAB PO SCH ×2 (07:25→07:31)
[2019-12-11] MEDS: QUETIAPINE FUMARATE 25 MG TABLET PO SCH ×4 (07:26→19:22)
[2019-12-11] MEDS: CHOLECALCIFEROL 1,000 UNITS 25 MCG TAB PO SCH ×2 (07:26→07:31)
--- NOTE | 2019-12-11 08:54 | Communication Note ---
Date of Service: December 11, 2019 Spoke with sister Vivian Singh who lives in [place]. Best phone # for her at this time is home # [phone] because she is working from home and does not have good cellular service. Sister Keara Esposito lives in [place] and is power of evp managing director. Her cell # is [phone].
[2019-12-11] MEDS: INSULIN ASPART 100 UNITS/ML 3 ML PEN SC SCH ×4 (09:12→20:21)
[2019-12-11] MEDS: ACETAMINOPHEN 325 MG TAB PO PRN (19:22)
[2019-12-11] MEDS: SERTRALINE HCL 50 MG TABLET PO SCH (19:22)
[2019-12-11] MEDS: ENOXAPARIN INJ 60 MG/0.6 ML SYR SQ SCH (19:23)
[2019-12-11] MEDS: INSULIN GLARGINE SOLOSTAR 100 UNITS/ML 3 ML PEN SC SCH (20:21)
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
[2019-12-12 06:24] LABS: Basophils # (auto) 0.02 K/uL (0-0.2); Basophils % (auto) 0.2 %; Eosinophils # (auto) 0.01 K/uL (0-0.5); Eosinophils % (auto) 0.1 %; Hematocrit (blood only) 35.6 % (42-52); Hemoglobin 11.9 g/dL (14.0-18.0); Immature Granulocytes # (auto) 0.02 K/uL (0.00-0.02); Immature Granulocytes % (auto) 0.2 %; Lymphocytes # (auto) 0.98 K/uL (1.2-3.4); Lymphocytes % (auto) 10.7 %; Mean Corpuscular Hemoglobin 29.1 pg (25-34); Mean Corpuscular Hgb Conc 33.4 g/dL (32-36); Mean Platelet Volume 9.5 fL (7.4-10.4); Monocytes # (auto) 0.25 K/uL (0.11-0.59); Monocytes % (auto) 2.7 %; Neutrophils # (auto) 7.89 K/uL (1.4-6.5); Neutrophils % (auto) 86.1 %; Platelet Count 248 K/uL (130-400); RDW Coefficient of Variation 14.4 % (11.5-14.5); RDW Standard Deviation 45.7 fL (36.4-46.3); Red Blood Count 4.09 M/uL (4.7-6.1); White Blood Count 9.17 K/uL (4.8-10.8)
[2019-12-12 06:37] LABS: D Dimer 2000 ug/L FEU (0-500)
[2019-12-12 07:01] LABS: Albumin Globulin Ratio 0.6 (0.9-2); Albumin Level 2.6 gm/dl (3.4-5.0); Bilirubin Direct 0.1 mg/dl (0-0.2); Bilirubin,Total 0.4 mg/dl (0.2-1); C Reactive Protein 10.7 mg/dl (0-0.29); Calcium 8.2 mg/dl (8.5-10.1); Creatinine Clr Calc Pharmacy 69.8 ml/min; Est GFR (African American) 101.4; Est GFR (Non-African American) 87.5; Ferritin 804.6 ng/ml (8-388); Globulin 4.4 gm/dl (2.5-4.0); Potassium 3.6 mmol/L (3.5-5.1)
[2019-12-12] MEDS: CARBOHYDRATES FOR HYPOGLYCEMIA PO PRN (09:08)
[2019-12-12] MEDS: ENOXAPARIN INJ 60 MG/0.6 ML SYR SQ SCH ×2 (09:10→20:39)
[2019-12-12] MEDS: LOSARTAN POTASSIUM 50 MG TAB PO SCH (09:11)
[2019-12-12] MEDS: CHOLECALCIFEROL 1,000 UNITS 25 MCG TAB PO SCH (09:11)
[2019-12-12] MEDS: QUETIAPINE FUMARATE 25 MG TABLET PO SCH ×3 (09:12→20:39)
[2019-12-12] MEDS: SENNA 8.6 MG TAB PO SCH (09:12)
[2019-12-12] MEDS: INSULIN ASPART 100 UNITS/ML 3 ML PEN SC SCH ×4 (09:20→20:41)
--- NOTE | 2019-12-12 10:11 | XRay Report ---
XR chest 1V portable CLINICAL HISTORY: COVID-19 COMPARISON STUDY: 12/10/2019 FINDINGS: The cardiac and mediastinal contours remain stable. There is slight progression in the inte rstitial left lung opacities. Minor increased markings the right lung base persist. There are old rig ht-sided rib fractures. There is no overt failure. There are no pleural effusions.[There is an old le ft clavicular fracture. IMPRESSION: Slight progression in the patient's left lung predominantly interstitial opacities. ACT 112: Negative or not required by law. Electronically signed by: Ever Potter M.D. 12/12/2019 10:09 AM
[2019-12-12] MEDS: ACETAMINOPHEN 1,000 MG/100 ML VIAL IV PRN ×2 (12:12→20:55)
[2019-12-12] MEDS: D5W AND LACTATED RINGERS 1,000 ML IV SCH (15:04)
[2019-12-12] MEDS: SERTRALINE HCL 50 MG TABLET PO SCH (20:39)
[2019-12-12] MEDS: INSULIN GLARGINE SOLOSTAR 100 UNITS/ML 3 ML PEN SC SCH ×2 (20:43→21:00)
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
[2019-12-13] MEDS: D5W AND LACTATED RINGERS 1,000 ML IV SCH ×2 (03:23→16:20)
[2019-12-13] MEDS ORDERED: INSULIN ASPART 100 UNITS/ML 3 ML PEN SC ONE (03:50)
[2019-12-13 07:11] LABS: Basophils # (auto) 0.01 K/uL (0-0.2); Basophils % (auto) 0.1 %; Eosinophils # (auto) 0.02 K/uL (0-0.5); Eosinophils % (auto) 0.3 %; Hematocrit (blood only) 35.1 % (42-52); Hemoglobin 11.8 g/dL (14.0-18.0); Immature Granulocytes # (auto) 0.01 K/uL (0.00-0.02); Immature Granulocytes % (auto) 0.1 %; Lymphocytes % (auto) 16.6 %; Mean Corpuscular Hemoglobin 29.1 pg (25-34); Mean Corpuscular Hgb Conc 33.6 g/dL (32-36); Mean Corpuscular Volume 86.7 fL (80-100); Mean Platelet Volume 9.6 fL (7.4-10.4); Monocytes # (auto) 0.31 K/uL (0.11-0.59); Monocytes % (auto) 4.3 %; Neutrophils # (auto) 5.67 K/uL (1.4-6.5); Neutrophils % (auto) 78.6 %; Platelet Count 279 K/uL (130-400); RDW Coefficient of Variation 14.5 % (11.5-14.5); RDW Standard Deviation 46.4 fL (36.4-46.3); Red Blood Count 4.05 M/uL (4.7-6.1); White Blood Count 7.22 K/uL (4.8-10.8)
[2019-12-13 07:39] LABS: BUN Creatinine Ratio 18.8 (10-20); Calcium 8.6 mg/dl (8.5-10.1); Creatinine Clr Calc Pharmacy 77.8 ml/min; Est GFR (African American) 105.3; Est GFR (Non-African American) 90.9; Potassium 3.8 mmol/L (3.5-5.1)
[2019-12-13] MEDS: CHOLECALCIFEROL 1,000 UNITS 25 MCG TAB PO SCH (07:57)
[2019-12-13] MEDS: ENOXAPARIN INJ 60 MG/0.6 ML SYR SQ SCH ×2 (07:58→20:16)
[2019-12-13] MEDS: LOSARTAN POTASSIUM 50 MG TAB PO SCH (07:58)
[2019-12-13] MEDS: SENNA 8.6 MG TAB PO SCH (07:58)
[2019-12-13] MEDS: QUETIAPINE FUMARATE 25 MG TABLET PO SCH ×3 (08:01→20:16)
[2019-12-13] MEDS: INSULIN ASPART 100 UNITS/ML 3 ML PEN SC SCH ×4 (08:02→20:45)
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
[2019-12-13] MEDS: SERTRALINE HCL 50 MG TABLET PO SCH (20:16)
[2019-12-13] MEDS: INSULIN GLARGINE SOLOSTAR 100 UNITS/ML 3 ML PEN SC SCH (20:44)
[2019-12-14 06:53] LABS: Basophils # (auto) 0.03 K/uL (0-0.2); Basophils % (auto) 0.5 %; Eosinophils # (auto) 0.07 K/uL (0-0.5); Eosinophils % (auto) 1.2 %; Hemoglobin 11.5 g/dL (14.0-18.0); Immature Granulocytes # (auto) 0.02 K/uL (0.00-0.02); Immature Granulocytes % (auto) 0.4 %; Mean Corpuscular Hemoglobin 29.5 pg (25-34); Mean Corpuscular Hgb Conc 33.8 g/dL (32-36); Mean Corpuscular Volume 87.2 fL (80-100); Mean Platelet Volume 9.9 fL (7.4-10.4); Monocytes # (auto) 0.38 K/uL (0.11-0.59); Monocytes % (auto) 6.7 %; Neutrophils # (auto) 3.84 K/uL (1.4-6.5); Neutrophils % (auto) 68.2 %; Platelet Count 331 K/uL (130-400); RDW Coefficient of Variation 14.3 % (11.5-14.5); RDW Standard Deviation 44.8 fL (36.4-46.3); White Blood Count 5.64 K/uL (4.8-10.8)
[2019-12-14 07:30] LABS: BUN Creatinine Ratio 18.9 (10-20); Bilirubin Direct 0.1 mg/dl (0-0.2); Calcium 8.1 mg/dl (8.5-10.1); Creatinine Clr Calc Pharmacy 83.9 ml/min; Est GFR (African American) 108.7; Est GFR (Non-African American) 93.7; Potassium 3.8 mmol/L (3.5-5.1)
[2019-12-14 07:35] LABS: Albumin Globulin Ratio 0.5 (0.9-2); Bilirubin,Total 0.4 mg/dl (0.2-1); C Reactive Protein 5.2 mg/dl (0-0.29); Ferritin 767.4 ng/ml (8-388); Globulin 4.3 gm/dl (2.5-4.0); Total Protein 6.3 gm/dl (6.4-8.2)
[2019-12-14] MEDS: LOSARTAN POTASSIUM 50 MG TAB PO SCH (07:57)
[2019-12-14] MEDS: CHOLECALCIFEROL 1,000 UNITS 25 MCG TAB PO SCH (07:57)
[2019-12-14] MEDS: SENNA 8.6 MG TAB PO SCH (07:57)
[2019-12-14] MEDS: QUETIAPINE FUMARATE 25 MG TABLET PO SCH ×3 (07:58→19:57)
[2019-12-14] MEDS: ENOXAPARIN INJ 60 MG/0.6 ML SYR SQ SCH ×2 (07:59→19:55)
[2019-12-14] MEDS: INSULIN ASPART 100 UNITS/ML 3 ML PEN SC SCH ×4 (08:40→20:17)
[2019-12-14] MEDS: D5W AND LACTATED RINGERS 1,000 ML IV SCH (12:41)
[2019-12-14] MEDS: SERTRALINE HCL 50 MG TABLET PO SCH ×2 (19:57→20:01)
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
[2019-12-14] MEDS: INSULIN GLARGINE SOLOSTAR 100 UNITS/ML 3 ML PEN SC SCH (20:19)
[2019-12-15 06:43] LABS: Basophils # (auto) 0.02 K/uL (0-0.2); Basophils % (auto) 0.4 %; Eosinophils # (auto) 0.06 K/uL (0-0.5); Eosinophils % (auto) 1.1 %; Hematocrit (blood only) 33.6 % (42-52); Hemoglobin 11.5 g/dL (14.0-18.0); Immature Granulocytes # (auto) 0.01 K/uL (0.00-0.02); Immature Granulocytes % (auto) 0.2 %; Lymphocytes # (auto) 1.79 K/uL (1.2-3.4); Lymphocytes % (auto) 34.3 %; Mean Corpuscular Hemoglobin 29.6 pg (25-34); Mean Corpuscular Hgb Conc 34.2 g/dL (32-36); Mean Corpuscular Volume 86.4 fL (80-100); Mean Platelet Volume 9.9 fL (7.4-10.4); Monocytes # (auto) 0.36 K/uL (0.11-0.59); Monocytes % (auto) 6.9 %; Neutrophils # (auto) 2.98 K/uL (1.4-6.5); Neutrophils % (auto) 57.1 %; Platelet Count 377 K/uL (130-400); RDW Coefficient of Variation 14.1 % (11.5-14.5); RDW Standard Deviation 44.4 fL (36.4-46.3); Red Blood Count 3.89 M/uL (4.7-6.1); White Blood Count 5.22 K/uL (4.8-10.8)
[2019-12-15 07:12] LABS: BUN Creatinine Ratio 16.9 (10-20); Calcium 8.6 mg/dl (8.5-10.1); Creatinine Clr Calc Pharmacy 86.2 ml/min; Est GFR (African American) 109.8; Est GFR (Non-African American) 94.8; Potassium 3.7 mmol/L (3.5-5.1)
[2019-12-15] MEDS: D5W AND LACTATED RINGERS 1,000 ML IV SCH (08:37)
[2019-12-15] MEDS: LOSARTAN POTASSIUM 50 MG TAB PO SCH (08:42)
[2019-12-15] MEDS: QUETIAPINE FUMARATE 25 MG TABLET PO SCH ×3 (08:42→19:26)
[2019-12-15] MEDS: SENNA 8.6 MG TAB PO SCH (08:42)
[2019-12-15] MEDS: CHOLECALCIFEROL 1,000 UNITS 25 MCG TAB PO SCH (08:43)
[2019-12-15] MEDS: ENOXAPARIN INJ 60 MG/0.6 ML SYR SQ SCH ×2 (08:47→19:26)
[2019-12-15] MEDS: INSULIN ASPART 100 UNITS/ML 3 ML PEN SC SCH ×4 (08:48→20:54)
[2019-12-15] MEDS: INSULIN GLARGINE SOLOSTAR 100 UNITS/ML 3 ML PEN SC SCH (20:53)
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
[2019-12-16] MEDS: METOPROLOL TARTRATE 1 MG/ML VIAL IV PRN ×3 (00:27→15:17)
[2019-12-16] MEDS: D5W AND LACTATED RINGERS 1,000 ML IV SCH (03:41)
[2019-12-16] MEDS ORDERED: SODIUM CHLORIDE 0.9% 250 ML IV SCH (06:45)
[2019-12-16] MEDS: ENOXAPARIN INJ 60 MG/0.6 ML SYR SQ SCH ×2 (07:33→20:38)
[2019-12-16] MEDS: LOSARTAN POTASSIUM 50 MG TAB PO SCH (07:34)
[2019-12-16] MEDS: CHOLECALCIFEROL 1,000 UNITS 25 MCG TAB PO SCH (07:34)
[2019-12-16] MEDS: QUETIAPINE FUMARATE 25 MG TABLET PO SCH ×4 (07:35→20:43)
[2019-12-16] MEDS: SENNA 8.6 MG TAB PO SCH ×2 (07:35→08:30)
[2019-12-16] MEDS: DEXTROSE 50% 50 ML SYRINGE IV PRN (08:08)
[2019-12-16 08:36] LABS: Basophils # (auto) 0.01 K/uL (0-0.2); Basophils % (auto) 0.2 %; Eosinophils # (auto) 0.07 K/uL (0-0.5); Eosinophils % (auto) 1.4 %; Hematocrit (blood only) 34.3 % (42-52); Hemoglobin 11.8 g/dL (14.0-18.0); Immature Granulocytes # (auto) 0.01 K/uL (0.00-0.02); Immature Granulocytes % (auto) 0.2 %; Lymphocytes # (auto) 1.36 K/uL (1.2-3.4); Lymphocytes % (auto) 26.7 %; Mean Corpuscular Hemoglobin 29.6 pg (25-34); Mean Corpuscular Hgb Conc 34.4 g/dL (32-36); Mean Platelet Volume 9.4 fL (7.4-10.4); Monocytes # (auto) 0.47 K/uL (0.11-0.59); Monocytes % (auto) 9.2 %; Neutrophils # (auto) 3.18 K/uL (1.4-6.5); Neutrophils % (auto) 62.3 %; Platelet Count 421 K/uL (130-400); RDW Coefficient of Variation 14.2 % (11.5-14.5); RDW Standard Deviation 44.6 fL (36.4-46.3); Red Blood Count 3.99 M/uL (4.7-6.1)
[2019-12-16] MEDS: INSULIN ASPART 100 UNITS/ML 3 ML PEN SC SCH ×4 (08:40→20:40)
[2019-12-16] MEDS ORDERED: SODIUM CHLORIDE 0.9% 500 ML IV SCH (08:45)
[2019-12-16 09:12] LABS: Albumin Level 2.1 gm/dl (3.4-5.0); BUN Creatinine Ratio 13.9 (10-20); Blood Urea Nitrogen 11 mg/dl (7-18); Calcium 8.4 mg/dl (8.5-10.1); Carbon Dioxide 27 mmol/L (21-32); Chloride 107 mmol/L (98-107); Creatinine Clr Calc Pharmacy 83.9 ml/min; Est GFR (African American) 108.7; Est GFR (Non-African American) 93.7; Glucose 136 mg/dl (70-99); Magnesium 2.2 mg/dl (1.8-2.4); Potassium 3.5 mmol/L (3.5-5.1); Sodium 139 mmol/L (136-145)
[2019-12-16 09:17] LABS: Alanine Aminotransferase 29 U/L (12-78); Albumin Globulin Ratio 0.5 (0.9-2); Alkaline Phosphatase 86 U/L (45-117); Aspartate Aminotransferase 26 U/L (15-37); Bilirubin Direct < 0.1 mg/dl (0-0.2); Bilirubin,Total 0.4 mg/dl (0.2-1); C Reactive Protein 2.12 mg/dl (0-0.29); Ferritin 480.9 ng/ml (8-388); Total Protein 6.1 gm/dl (6.4-8.2); Troponin I < 0.015 ng/ml (0-0.045)
[2019-12-16] MEDS ORDERED: METOPROLOL TARTRATE 25 MG TAB PO SCH (10:45)
--- NOTE | 2019-12-16 10:48 | Cardiology Consultation ---
Date of Consultation December 16, 2019 Assessment & Plan (1) Paroxysmal atrial fibrillation with RVR: (2) COVID-19: (3) Elevated d-dimer: Recommend beta-afshan therapy. Metoprolol 12.5 mg twice daily ordered. Continue to monitor heart rate via telemetry monitoring. Resting 2D transthoracic echocardiogram will not be performed at this time due to positive COVID-19 status. I do not believe an echocardiogram would roving changer currently. I will continue to follow closely with the hospitalist service if there is any change in clinical status that would require imaging. I have also ordered TSH with free T4 reflex to exclude presence of thyroid dysfunction. Maintain electrolyte replacement including potassium greater than 4.0, and magnesium greater than 2.0. Thank you for allowing me to participate in the care of your patient. History of Present Illness Reason for Consultation: Paroxysmal atrial fibrillation Requesting Physician: Denys Hancock MD Attending Physician: Denys Hancock MD History of Present Illness 69-year-old patient admitted from [facility] with fever, chills, and lethargy. Diagnosed with COVID-19. He has been monitored in the COVID unit since admission, 12/10/19. History obtained from chart review and discussion with hospitalist. At approximately 2 AM, patient developed atrial fibrillation with rapid ventricular response. No symptoms reported. Heart rate ranging from 90 to 120 bpm on telemetry. No document history of atrial fibrillation. No echocardiogram on file. No significant ST changes during atrial fibrillation. Per discussion with hospitalist, patient denies palpitations, lightheadedness, chest discomfort, or dyspnea. Blood pressure borderline hypotensive. IV Lopressor ordered. Patient anticoagulated since admission due to elevated d- dimer. Allergies Allergy/AdvReac Type Severity Reaction Status Date / Time Unable to Assess Allergy Unverified 12/10/19 11:37 Home Medications Home Medications Medication Instructions Recorded Confirmed Type cholecalciferol (vitamin D3) 25 mcg PO DAILY 12/10/19 12/10/19 History insulin glargine [Lantus U-100 24 unit SUBCUT HS 12/10/19 12/10/19 History Insulin] insulin lispro [Humalog U-100 4 unit SUBCUT DAILY@1100 12/10/19 12/10/19 History Insulin] insulin lispro [Humalog U-100 6 unit SUBCUT BIDM 12/10/19 12/10/19 History Insulin] losartan 100 mg PO DAILY 12/10/19 12/10/19 History quetiapine 12.5 mg PO BID 12/10/19 12/10/19 History quetiapine 25 mg PO HS 12/10/19 12/10/19 History sennosides [senna] 8.6 mg PO DAILY 12/10/19 12/10/19 History sertraline 25 mg PO HS 12/10/19 12/10/19 History Patient History Medical History (Updated 12/16/19 @ 17:59 by Denys Hancock MD) Bipolar 1 disorder Cognitive disorder Depression Diabetes mellitus type 1 with complications HTN (hypertension) Hypertension Status post amputation of toe of left foot Surgical History (Updated 12/16/19 @ 17:53 by Denys Hancock MD) Status post below-knee amputation of left lower extremity Family History Other Family history unobtainable due to patient's condition Social History Preferred Language: [place] Communication Ability: Effective Communication Ability Comment: responds at joan Complaint Investigations Officer Required: No Beliefs That Will Affect Care: None Current Living Situation: Personal Care Facility Current Living Situation Comment: [facility] Feels Safe at Home: Yes Safety Concerns: Feels Safe At This Time Smoking Status: Never smoker Do You Dip or Chew Tobacco: No ; Second Hand Exposure: No ; Tobacco Cessation Education Requested by Patient: No Hx Alcohol Use: No Review of Systems Review of Systems: Review of systems as per HPI gleaned from chart review and discussion with hospitalist. Patient was not evaluated at bedside due to lack of symptoms, and COVID-19 infection. Physical Exam Physical Exam: Physical exam was not performed. Results & Data ([facility]) Vital Signs (Past 12 Hours) Vital Signs Temp Pulse Pulse Resp BP BP BP 12/16/19 08:45 112 H 99/57 L 12/16/19 07:30 37.1 C 97 H 16 123/80 12/16/19 06:43 108 H 16 120/49 L 12/16/19 06:37 36.8 C 112 H 16 83/57 L 12/16/19 04:47 122 H 117/64 12/16/19 02:30 36.7 C 101 H 115/79 06/02/20 02:22 75 Pulse Ox 12/16/19 08:45 12/16/19 07:30 95 12/16/19 06:43 96 12/16/19 06:37 96 12/16/19 04:47 12/16/19 02:30 99 12/16/19 02:22 Laboratory Results Laboratory Results - last 24 hr 12/15/19 12/15/19 12/15/19 12:12 16:22 20:48 WBC RBC Hgb Hct MCV MCH MCHC RDW Std Deviation RDW Coeff of Jace Plt Count MPV Immature Gran % (Auto) Neut % (Auto) Lymph % (Auto) [place] % (Auto) Eos % (Auto) Baso % (Auto) Immature Gran # (Auto) Neut # (Auto) Lymph # (Auto) [place] # (Auto) Eos # (Auto) Baso # (Auto) Sodium Potassium Chloride Carbon Dioxide Anion Gap BUN Creatinine Est Cr Clr Drug Dosing Est GFR ( Amer) Est GFR (Non-Af Amer) BUN/Creatinine Ratio Glucose POC Glucose 148 H 165 H 161 H Calcium Magnesium Ferritin Total Bilirubin Direct Bilirubin AST ALT Alkaline Phosphatase Lactate Dehydrogenase Troponin I C-Reactive Protein Total Protein Albumin Globulin Albumin/Globulin Ratio 12/16/19 12/16/19 12/16/19 07:56 08:02 08:18 WBC RBC Hgb Hct MCV MCH MCHC RDW Std Deviation RDW Coeff of Jace Plt Count MPV Immature Gran % (Auto) Neut % (Auto) Lymph % (Auto) [place] % (Auto) Eos % (Auto) Baso % (Auto) Immature Gran # (Auto) Neut # (Auto) Lymph # (Auto) [place] # (Auto) Eos # (Auto) Baso # (Auto) Sodium Potassium Chloride Carbon Dioxide Anion Gap BUN Creatinine Est Cr Clr Drug Dosing Est GFR ( Amer) Est GFR (Non-Af Amer) BUN/Creatinine Ratio Glucose POC Glucose 60 L* 56 L* 109 H Calcium Magnesium Ferritin Total Bilirubin Direct Bilirubin AST ALT Alkaline Phosphatase Lactate Dehydrogenase Troponin I C-Reactive Protein Total Protein Albumin Globulin Albumin/Globulin Ratio 12/16/19 12/16/19 12/16/19 08:19 08:19 08:19 WBC 5.10 RBC 3.99 L Hgb 11.8 L Hct 34.3 L MCV 86.0 MCH 29.6 MCHC 34.4 RDW Std Deviation 44.6 RDW Coeff of Jace 14.2 Plt Count 421 H MPV 9.4 Immature Gran % (Auto) 0.2 Neut % (Auto) 62.3 Lymph % (Auto) 26.7 [place] % (Auto) 9.2 Eos % (Auto) 1.4 Baso % (Auto) 0.2 Immature Gran # (Auto) 0.01 Neut # (Auto) 3.18 Lymph # (Auto) 1.36 [place] # (Auto) 0.47 Eos # (Auto) 0.07 Baso # (Auto) 0.01 Sodium 139 Potassium 3.5 Chloride 107 Carbon Dioxide 27 Anion Gap 5.0 BUN 11 Creatinine 0.76 Est Cr Clr Drug Dosing 83.9 Est GFR ( Amer) 108.7 Est GFR (Non-Af Amer) 93.7 BUN/Creatinine Ratio 13.9 Glucose 136 H POC Glucose Calcium 8.4 L Magnesium 2.2 Ferritin 480.9 H Total Bilirubin 0.4 Direct Bilirubin < 0.1 AST 26 ALT 29 Alkaline Phosphatase 86 Lactate Dehydrogenase 192 Troponin I < 0.015 C-Reactive Protein 2.12 H Total Protein 6.1 L Albumin 2.1 L Globulin 4.0 Albumin/Globulin Ratio 0.5 L ECG Rhythm: atrial fibrillation (Rapid ventricular response, ventricular rate 124 bpm, nonspecific ST abnormality.)
[2019-12-16] MEDS: POTASSIUM CHLORIDE / WTR 10 MEQ/100 ML PLCT IV SCH ×4 (11:56→15:19)
[2019-12-16] MEDS ORDERED: METOPROLOL TARTRATE 1 MG/ML VIAL IV SCH (12:00)
--- NOTE | 2019-12-16 12:03 | Electrocardiogram Report ---
Test Reason : Blood Pressure : / mmHG Vent. Rate : 124 BPM Atrial Rate : 057 BPM P-R Int : 000 ms QRS Dur : 090 ms QT Int : 350 ms P-R-T Axes : 000 059 075 degrees QTc Int : 502 ms Atrial fibrillation with rapid ventricular response Abnormal ECG When compared with ECG of 16-DEC-2019 00:27, (unconfirmed) No significant change was found Confirmed by Hang Bravo ([id number]) on 12/16/2019 12:03:04 PM Referred By: REFERRED SELF Confirmed By:Hang Bravo
--- NOTE | 2019-12-16 12:03 | Electrocardiogram Report ---
Test Reason : Blood Pressure : / mmHG Vent. Rate : 124 BPM Atrial Rate : 077 BPM P-R Int : 000 ms QRS Dur : 084 ms QT Int : 344 ms P-R-T Axes : 000 059 070 degrees QTc Int : 494 ms Poor data quality, interpretation may be adversely affected Atrial fibrillation with rapid ventricular response Nonspecific ST abnormality Abnormal ECG When compared with ECG of 10-DEC-2019 09:55, Atrial fibrillation has replaced Sinus rhythm Confirmed by Hang Bravo ([id number]) on 12/16/2019 12:02:56 PM Referred By: REFERRED SELF Confirmed By:Hang Bravo
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
[2019-12-16] MEDS: INSULIN GLARGINE SOLOSTAR 100 UNITS/ML 3 ML PEN SC SCH (20:39)
[2019-12-16] MEDS: METOPROLOL TARTRATE 25 MG TAB PO SCH (20:42)
[2019-12-16] MEDS: SERTRALINE HCL 50 MG TABLET PO SCH (20:43)
[2019-12-17] MEDS: METOPROLOL TARTRATE 1 MG/ML VIAL IV PRN (00:19)
[2019-12-17] MEDS: D5W AND LACTATED RINGERS 1,000 ML IV SCH (00:27)
[2019-12-17 06:19] LABS: BUN Creatinine Ratio 11.5 (10-20); Calcium 7.9 mg/dl (8.5-10.1); Creatinine Clr Calc Pharmacy 96.7 ml/min; Est GFR (African American) 115.1; Est GFR (Non-African American) 99.3; Potassium 3.9 mmol/L (3.5-5.1)
[2019-12-17] MEDS: DEXTROSE 50% 50 ML SYRINGE IV PRN (06:45)
[2019-12-17] MEDS: INSULIN ASPART 100 UNITS/ML 3 ML PEN SC SCH ×4 (08:47→20:22)
[2019-12-17] MEDS: METOPROLOL TARTRATE 25 MG TAB PO SCH ×2 (09:01→20:31)
[2019-12-17] MEDS: SENNA 8.6 MG TAB PO SCH (09:01)
[2019-12-17] MEDS: QUETIAPINE FUMARATE 25 MG TABLET PO SCH ×3 (09:01→20:30)
[2019-12-17] MEDS: CHOLECALCIFEROL 1,000 UNITS 25 MCG TAB PO SCH (09:01)
[2019-12-17] MEDS: INSULIN GLARGINE SOLOSTAR 100 UNITS/ML 3 ML PEN SC SCH ×2 (09:02→20:23)
[2019-12-17] MEDS: ENOXAPARIN INJ 60 MG/0.6 ML SYR SQ SCH ×2 (09:02→20:20)
[2019-12-17] MEDS ORDERED: PHARMACY GLYCEMIC MGMT CONSULT PRN (09:10)
--- NOTE | 2019-12-17 10:09 | Pharmacy Report ---
Glycemic Control Consultation - Date of Service December 17, 2019 - Scope Scope: Glycemic Pharmacist consulted for glycemic control and to write orders per [facility] inpatient glycemic control protocol. - Objective Weight: 67.5 kg [place] BSG (last 24hrs): 12/16/19 12/16/19 12/16/19 11:49 16:27 20:34 Glucose POC Glucose 154 H 121 H 165 H 12/17/19 12/17/19 05:18 07:24 Glucose 66 L POC Glucose 103 H Laboratory Data (last 24hrs): 12/16/19 12/17/19 16:20 05:18 Potassium 4.1 D 3.9 Carbon Dioxide 29 Anion Gap 3.0 Creatinine 0.66 Est Cr Clr Drug Dosing 96.7 HbA1c: Hemoglobin A1c 9.2 % (4.5-5.6) H 12/11/19 05:31 - Recent Pertinent Medications Outpatient Anti-diabetic Regimen: * Lantus 25 units HS, Humalog if BSG >150: 6 units with breakfast and dinner; 4 units with lunch * A1c = 9.2 % 12/11/19 The patient is currently receiving: * Basal insulin: Lantus BIDM per scale up to 16 units * Correctional Insulin: Novolog Correction per scale ACHS Goal Range: Low 100 mg/dL - High 160 mg/dL Correction Factor: 30 mg/dL/unit * Prandial insulin: Per carb ratio of 1 unit per 10 grams CHO consumed Risk Factors for Insulin Resistance: * Infection: COVID-19 infection * IVF: D5 + LR @ 50 ml/hr * Recent Surgery * Diet: T2DM; but minimal intake * - Assessment & Plan Assessment & Plan: ASSESSMENT: * Mr. Jaffe is a 69 yo male with type 1 diabetes admitted for SARS-CoV-2 infection * BSGs have been adequately controlled in the past x48 hours, with mild AM hypoglycemia yesterday. * Home regimen was changed to BID dosing on 12/15, however patient refused dose this morning. Therefore will adjust back to once daily dosing. * Patient received 13 total units of insulin yesterday, 12 units of which were basal (half of home dose). Fasting this AM 103. * Patient is currently receiving D5+LR @ 50 ml/hr, would continue with poor diet. PLAN FOR INPATIENT GLYCEMIC CONTROL: * Basal insulin * Lantus per sliding scale HS * BSG <140 mg/dL: 16 units * BSG 140-250 mg/dL: 19 units * BSG >250 mg/dL: 24 units * Bolus insulin * NovoLog per scale ACHS or Q6hrs while NPO * Goal Range: Low 110 mg/dL - High 160 mg/dL * Correction Factor: 30 mg/dL/unit * Nutritional / Prandial insulin per carb ratio of 1 unit per 10 grams CHO consumed * Please note that the plan above was derived based on current level of insulin resistance and hospital stress. These recommendations are appropriate for inpatient admission only. Plan of care upon discharge will need to be reassessed to avoid potential outpatient hypo/hyperglycemia. Thank you.
--- NOTE | 2019-12-17 13:42 | Cardiology Progress Note ---
Date of Service December 17, 2019 Assessment & Plan (1) Paroxysmal atrial fibrillation with RVR: (2) COVID-19: (3) Elevated d-dimer: Patient spontaneously converted to sinus rhythm. Continue beta-afshan, metoprolol 25 mg twice daily. Continue IV heparin. Consider transition to Eliquis 5 mg twice daily at time of discharge. Oral anticoagulation recommended due to age, hypertension, and history of diabetes. TSH within normal limits. Replace electrolytes as needed to maintain serum potassium greater than 4.0, and magnesium greater than 2.0. Subjective Patient evaluated via chart review. 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 Patient converted to sinus rhythm at approximately 3 AM. Hemodynamics remained stable. No evidence of significant bradycardia. Review of Systems 2 Review of Systems: Review of systems as per HPI gleaned from chart review and discussion with hospitalist. Patient was not evaluated at bedside due to lack of symptoms, and COVID-19 infection. Results & Data Vital Signs (Past 12 Hours) Vital Signs Temp Pulse Pulse Resp BP BP Pulse Ox 12/17/19 11:37 36.7 C 80 20 130/75 98 12/17/19 08:00 78 12/17/19 07:30 37.2 C 79 18 124/88 98 12/17/19 05:45 36.2 C L 12/17/19 04:00 78 117/52 L 96 12/17/19 03:01 92 H 121/92 92 12/17/19 02:00 113 H 109/59 L 95
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
[2019-12-17] MEDS: SERTRALINE HCL 50 MG TABLET PO SCH (20:31)
[2019-12-17] MEDS ORDERED: PROMETHAZINE HCL 25 MG TAB PO PRN (21:45)
[2019-12-18] MEDS: D5W AND LACTATED RINGERS 1,000 ML IV SCH (00:34)
[2019-12-18] MEDS ORDERED: PROMETHAZINE HCL 25 MG/20 ML UDP PO PRN (08:08)
[2019-12-18] MEDS: APIXABAN 5 MG TABLET PO SCH ×3 (08:42→21:17)
[2019-12-18] MEDS: METOPROLOL TARTRATE 25 MG TAB PO SCH ×3 (08:43→21:17)
[2019-12-18] MEDS: QUETIAPINE FUMARATE 25 MG TABLET PO SCH ×4 (08:44→21:17)
[2019-12-18] MEDS: CHOLECALCIFEROL 1,000 UNITS 25 MCG TAB PO SCH (08:45)
[2019-12-18] MEDS: INSULIN ASPART 100 UNITS/ML 3 ML PEN SC SCH ×4 (08:45→20:29)
[2019-12-18] MEDS: SENNA 8.6 MG TAB PO SCH (08:45)
--- NOTE | 2019-12-18 11:03 | Cardiology Progress Note ---
Date of Service December 18, 2019 Assessment & Plan (1) Paroxysmal atrial fibrillation with RVR: (2) COVID-19: (3) Elevated d-dimer: Patient remains in sinus rhythm. Recommend continuing metoprolol 25 mg twice daily. Oral anticoagulation recommended due to age, hypertension, and history of diabetes. Patient transition from IV heparin to Eliquis. TSH within normal limits. Replace electrolytes as needed to maintain serum potassium greater than 4.0, and magnesium greater than 2.0. Subjective Patient evaluated via chart review. Telemetry demonstrates sinus rhythm overnight. No recurrent atrial fibrillation. No cardiovascular concerns reported. Review of Systems Review of Systems: Review of systems as per HPI gleaned from chart review and discussion with hospitalist. Patient was not evaluated at bedside due to lack of symptoms, and COVID-19 infection. Physical Exam Physical Exam: Physical exam was not performed. Results & Data Vital Signs (Past 12 Hours) Vital Signs Temp Pulse Pulse Resp BP BP Pulse Ox 12/18/19 07:27 36.5 C 76 20 138/91 97 12/18/19 07:12 78 12/18/19 04:05 37.1 C 72 166/84 H 96 12/18/19 00:40 78
--- NOTE | 2019-12-18 13:08 | Pharmacy Report ---
Pharmacy Glycemic Short Note 2 - Date of Service December 18, 2019 - Glycemic Short BSG Results (Last 24 hours): 12/17/19 12/17/19 12/18/19 16:25 20:05 07:40 POC Glucose 196 H 218 H 98 12/18/19 11:51 POC Glucose 205 H Outpatient Anti-diabetic Regimen: * Lantus 25 units HS, * Humalog 6 units with breakfast/dinner; 4 units with lunch. Hold Humalog if BSG is less than 150 mg/dL. * A1c = 9.2 % 12/11/19 The patient is currently receiving: * Basal insulin: Lantus 24 units HS until 12/15. Then 12 units on 2 and 19 units on 6/3 PM respectively. * Correctional Insulin: Novolog Correction per scale ACHS Goal Range: Low 110 mg/dL - High 160 mg/dL Correction Factor: 30 mg/dL/unit * Prandial insulin: Per carb ratio of 1 unit per 10 grams CHO consumed Risk Factors for Insulin Resistance: * Infection: COVID-19 infection * IVF: D5 + LR @ 50 ml/hr (discontinued this AM) * Diet: T2DM; but po minimal intake noted Assessment * 69 yo male w type 1 diabetes admitted for COVID-19 * AM fasting adequate at 98 mg/dL after Lantus increased yesterday. However, with long-standing D5W infusion being held this AM, will add parameter for lower dose tonight, depending on BSG * PO intake has slightly increased, but still low with CHO intake ranging 14-29 g per meal for the last three meals. Concern for repeat hypoglycemic event given discontinuation of D5W infusion. Will therefore loosen Novolog parameters for now despite noted hyperglycemia. Patient may require adjustment of Novolog once impact of D5W discontinuation on BSG trend is more apparent PLAN FOR INPATIENT GLYCEMIC CONTROL: * Basal insulin * Lantus per sliding scale HS * BSG <= 250 mg/dL: 16 units * BSG > 250 mg/dL: 19 units * Bolus insulin * NovoLog per scale ACHS or Q6hrs while NPO * Goal Range: Low 140 mg/dL - High 180 mg/dL * Correction Factor: 35 mg/dL/unit * Nutritional / Prandial insulin per carb ratio of 1 unit per 12 grams CHO consumed
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
[2019-12-18] MEDS: INSULIN GLARGINE SOLOSTAR 100 UNITS/ML 3 ML PEN SC SCH (20:30)
[2019-12-18] MEDS: SERTRALINE HCL 50 MG TABLET PO SCH ×2 (20:36→21:17)
[2019-12-19 05:53] LABS: Hematocrit (blood only) 32.8 % (42-52); Hemoglobin 11.2 g/dL (14.0-18.0); Mean Corpuscular Hemoglobin 29.6 pg (25-34); Mean Corpuscular Hgb Conc 34.1 g/dL (32-36); Mean Corpuscular Volume 86.5 fL (80-100); Mean Platelet Volume 8.8 fL (7.4-10.4); Platelet Count 532 K/uL (130-400); RDW Coefficient of Variation 14.2 % (11.5-14.5); RDW Standard Deviation 44.7 fL (36.4-46.3); Red Blood Count 3.79 M/uL (4.7-6.1); White Blood Count 6.11 K/uL (4.8-10.8)
[2019-12-19 06:31] LABS: BUN Creatinine Ratio 10.9 (10-20); Calcium 8.8 mg/dl (8.5-10.1); Creatinine Clr Calc Pharmacy 87.4 ml/min; Est GFR (African American) 110.5; Est GFR (Non-African American) 95.3; Magnesium 2.1 mg/dl (1.8-2.4); Potassium 4.2 mmol/L (3.5-5.1)
[2019-12-19 06:36] LABS: C Reactive Protein 1.06 mg/dl (0-0.29); Ferritin 301.2 ng/ml (8-388); Phosphorus 2.6 mg/dl (2.5-4.9)
[2019-12-19] MEDS: CARBOHYDRATES FOR HYPOGLYCEMIA PO PRN (08:22)
[2019-12-19] MEDS: QUETIAPINE FUMARATE 25 MG TABLET PO SCH ×3 (08:31→19:44)
[2019-12-19] MEDS: APIXABAN 5 MG TABLET PO SCH ×2 (08:31→19:44)
[2019-12-19] MEDS: CHOLECALCIFEROL 1,000 UNITS 25 MCG TAB PO SCH (08:31)
[2019-12-19] MEDS: METOPROLOL TARTRATE 25 MG TAB PO SCH ×2 (08:32→19:46)
[2019-12-19] MEDS: SENNA 8.6 MG TAB PO SCH (08:33)
[2019-12-19] MEDS: INSULIN ASPART 100 UNITS/ML 3 ML PEN SC SCH ×4 (09:11→19:59)
--- NOTE | 2019-12-19 11:43 | Pharmacy Report ---
Pharmacy Glycemic Short Note 2 - Date of Service December 19, 2019 - Glycemic Short BSG Results (Last 24 hours): 12/18/19 12/18/19 12/18/19 11:51 16:42 20:23 Glucose POC Glucose 205 H 281 H 234 H 12/19/19 12/19/19 12/19/19 05:36 08:05 08:07 Glucose 73 POC Glucose 55 L* 62 L* 12/19/19 08:40 Glucose POC Glucose 82 Outpatient Anti-diabetic Regimen: * Lantus 25 units SC HS * Humalog 6 units with breakfast/dinner; 4 units with lunch. Hold Humalog if BSG is less than 150 mg/dL. * A1c = 9.2 % 12/11/19 The patient is currently receiving: * Basal insulin: Lantus 24 units HS until 12/15. 12 units on 12/15. 19 units on 12/16. 16 units on 12/17. * Correctional Insulin: Novolog Correction per scale ACHS Goal Range: Low 140 mg/dL - High 180 mg/dL Correction Factor: 30 mg/dL/unit * Prandial insulin: Per carb ratio of 1 unit per 10 grams CHO consumed Risk Factors for Insulin Resistance: * Infection: COVID-19 infection * IVF: D5 + LR @ 50 ml/hr (discontinued 12/17 AM) * Diet: T2DM; but po minimal intake noted Assessment * 69 yo male w brittle type 1 diabetes admitted for COVID-19 * AM fasting hypoglycemia again today, despite reduction in Lantus yesterday. Mild to moderate dose reductions of basal insulin are usually effective for prevention of repeat AM hypoglycemia in patients with type 1 diabetes, but given notable trend in AM fasting hypoglycemia, will be more aggressive with reduction - reduce dose by 50% tonight. Of note, even with repeat AM hypoglycemia, it is not appropriate to hold basal insulin in a patient with type 1 diabetes. * AM hypoglycemia may also be precipitated by over-correction of hyperglycemia at bedtime - will loosen correction factor at meals with further loosening at bedtime. * Patient may require tightening of CHO ratio with meals as evidenced by post- prandial hyperglycemia but hesitant to do so at this time as parameters are cu rrently between weight based moderate and severe stress estimates which is usually more than adequate to prevent post-prandial elevations in non- critically ill patients with type 1 diabetes not receiving steroids. Furthermore, CHO intake with meals has not been large and if the patient does regain his appetite and increase his CHO consumption, a tighter CHO ratio may precipitate a hypoglycemic event, which the patient is definitely at risk for given brittle type 1 diabetes with multiple recent hypoglycemic events. Will therefore leave CHO ratio for now (with the exception of bedtime which was loosened due to AM hypoglycemia) PLAN FOR INPATIENT GLYCEMIC CONTROL: Basal insulin: Lantus * 8 units SC HS Bolus insulin: Novolog * Goal Range: Low 140 mg/dL - High 180 mg/dL * AC * Correction Factor: 35 mg/dL/unit * Nutritional / Prandial insulin per carb ratio of 1 unit per 10 grams CHO consumed * HS * Correction Factor: 40 mg/dL/unit * Nutritional / Prandial insulin per carb ratio of 1 unit per 14 grams CHO consumed
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
[2019-12-19] MEDS: SERTRALINE HCL 50 MG TABLET PO SCH (19:43)
[2019-12-19] MEDS: ACETAMINOPHEN 500 MG TAB PO SCH (19:51)
[2019-12-19] MEDS ORDERED: INSULIN GLARGINE SOLOSTAR 100 UNITS/ML 3 ML PEN SC SCH (21:00)
[2019-12-20] MEDS: INSULIN ASPART 100 UNITS/ML 3 ML PEN SC SCH ×4 (08:42→22:24)
[2019-12-20] MEDS: APIXABAN 5 MG TABLET PO SCH ×3 (08:45→22:23)
[2019-12-20] MEDS: ACETAMINOPHEN 500 MG TAB PO SCH ×4 (08:45→22:25)
[2019-12-20] MEDS: CHOLECALCIFEROL 1,000 UNITS 25 MCG TAB PO SCH (08:46)
[2019-12-20] MEDS: QUETIAPINE FUMARATE 25 MG TABLET PO SCH ×3 (08:46→19:54)
[2019-12-20] MEDS: SENNA 8.6 MG TAB PO SCH (08:47)
[2019-12-20] MEDS: METOPROLOL TARTRATE 25 MG TAB PO SCH ×3 (08:47→22:23)
--- NOTE | 2019-12-20 13:21 | Pharmacy Report ---
Pharmacy Glycemic Short Note 2 - Date of Service December 20, 2019 - Glycemic Short BSG Results (Last 24 hours): 12/19/19 12/19/19 12/20/19 16:45 19:59 06:26 POC Glucose 217 H 156 H 247 H 12/20/19 12/20/19 07:45 11:34 POC Glucose 253 H 278 H Outpatient Anti-diabetic Regimen: * Lantus 25 units SC HS * Humalog 6 units with breakfast/dinner; 4 units with lunch. Hold Humalog if BSG is less than 150 mg/dL. * A1c = 9.2 % 12/11/19 The patient is currently receiving: * Basal insulin: Lantus 24 units HS until 12/15. 12 units on 12/15. 19 units on 12/16. 16 units on 12/17. 8 units on 12/18 * Correctional Insulin: Novolog Correction per scale Goal Range: Low 140 mg/dL - High 180 mg/dL Correction Factor: 30 mg/dL/unit AV and 40 mg/dl/units at HS * Prandial insulin: Per carb ratio of 1 unit per 10 grams CHO consumed AC and 14 at HS Assessment * 69 yo male w britalis type 1 diabetes admitted for COVID-19 * Pt had AM fasting hypo on 12/18 therefore insulin dosing significantly reduced. Today, pt with sustained hyperglycemia - likely from large dose reduction yesterday. Will increase insulin regimen slightly and continue to titrate based on BSG trends. PLAN FOR INPATIENT GLYCEMIC CONTROL: Basal insulin: Lantus * Increase to 14 units SC HS - will give first dose at dinner since only 8 units given yesterday and then continue with HS starting 12/20 Bolus insulin: Novolog (tighten slightly today since patient is basal deficient from large dose reduction yesterday) * Goal Range: Low 140 mg/dL - High 180 mg/dL * AC * Correction Factor: 30 mg/dL/unit * Nutritional / Prandial insulin per carb ratio of 1 unit per 10 grams CHO consumed * HS * Correction Factor: 40 mg/dL/unit * Nutritional / Prandial insulin per carb ratio of 1 unit per 14 grams CHO consumed
[2019-12-20] MEDS ORDERED: INSULIN GLARGINE SOLOSTAR 100 UNITS/ML 3 ML PEN SC SCH (18:00)
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
[2019-12-20] MEDS: SERTRALINE HCL 50 MG TABLET PO SCH ×2 (21:26→22:25)
[2019-12-21] MEDS: ACETAMINOPHEN 500 MG TAB PO SCH ×2 (05:58→14:36)
[2019-12-21] MEDS: INSULIN ASPART 100 UNITS/ML 3 ML PEN SC SCH ×4 (08:45→21:08)
[2019-12-21] MEDS: SENNA 8.6 MG TAB PO SCH (08:48)
[2019-12-21] MEDS: CHOLECALCIFEROL 1,000 UNITS 25 MCG TAB PO SCH (08:49)
[2019-12-21] MEDS: QUETIAPINE FUMARATE 25 MG TABLET PO SCH ×3 (08:49→20:28)
[2019-12-21] MEDS: APIXABAN 5 MG TABLET PO SCH ×2 (08:50→20:28)
[2019-12-21] MEDS: METOPROLOL TARTRATE 25 MG TAB PO SCH ×2 (08:51→20:28)
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
--- NOTE | 2019-12-21 10:41 | Pharmacy Report ---
Pharmacy Glycemic Short Note 2 - Date of Service December 21, 2019 - Glycemic Short BSG Results (Last 24 hours): 12/20/19 12/20/19 12/21/19 11:34 16:02 07:57 POC Glucose 278 H 169 H 234 H Outpatient Anti-diabetic Regimen: * Lantus 25 units SC HS * Humalog 6 units with breakfast/dinner; 4 units with lunch. Hold Humalog if BSG is less than 150 mg/dL. * A1c = 9.2 % 12/11/19 The patient is currently receiving: * Basal insulin: Lantus 24 units HS until 12/15 12 units on 12/15 19 units on 12/16 16 units on 12/17 8 units on 12/18 14 units on 12/19 16 units on 12/20 * Correctional Insulin: Novolog Correction per scale Goal Range: Low 140 mg/dL - High 180 mg/dL Correction Factor: 30 mg/dL/unit AC and 40 mg/dl/units at HS * Prandial insulin: Per carb ratio of 1 unit per 10 grams CHO consumed AC and 14 at HS Assessment * 69 yo male w brittle type 1 diabetes admitted for COVID-19 * Pt had AM fasting hypo on 12/18 therefore insulin dosing significantly reduced. Rebound sustained hyperglycemia the following day - likely from large dose reduction the day prior. Conservatively increasing basal insulin back to target dose of ~ 16 units/day. * Will tighten CF/CR to provide additional coverage while patient still basal deficient. PLAN FOR INPATIENT GLYCEMIC CONTROL: Basal insulin: Lantus * Increase to 16 units SC HS - will give first dose at dinner since only 14 units given yesterday and then continue with 16 units HS starting 12/21 Bolus insulin: Novolog (tighten AC parameters today since patient is basal deficient. Will keep HS parameters the same since patient tends to have hypo after large HS correction) * AC * Goal Range: Low 110 mg/dL - High 140 mg/dL * Correction Factor: 25 mg/dL/unit * Nutritional / Prandial insulin per carb ratio of 1 unit per 8 grams CHO consumed * HS * Goal Range: Low 140 mg/dL - High 180 mg/dL * Correction Factor: 40 mg/dL/unit * Nutritional / Prandial insulin per carb ratio of 1 unit per 14 grams CHO consumed
[2019-12-21] MEDS: INSULIN GLARGINE SOLOSTAR 100 UNITS/ML 3 ML PEN SC SCH (17:01)
[2019-12-21] MEDS ORDERED: ACETAMINOPHEN 500 MG TAB PO PRN (17:17)
[2019-12-21] MEDS: SERTRALINE HCL 50 MG TABLET PO SCH (20:28)
[2019-12-22 06:49] LABS: Hematocrit (blood only) 32.4 % (42-52); Hemoglobin 10.9 g/dL (14.0-18.0); Mean Corpuscular Hemoglobin 29.5 pg (25-34); Mean Corpuscular Hgb Conc 33.6 g/dL (32-36); Mean Corpuscular Volume 87.8 fL (80-100); Mean Platelet Volume 8.8 fL (7.4-10.4); Platelet Count 497 K/uL (130-400); RDW Coefficient of Variation 14.9 % (11.5-14.5); RDW Standard Deviation 47.4 fL (36.4-46.3); Red Blood Count 3.69 M/uL (4.7-6.1); White Blood Count 5.51 K/uL (4.8-10.8)
[2019-12-22 07:28] LABS: BUN Creatinine Ratio 25.1 (10-20); C Reactive Protein 2.16 mg/dl (0-0.29); Calcium 8.6 mg/dl (8.5-10.1); Creatinine Clr Calc Pharmacy 76.9 ml/min; Est GFR (African American) 104.8; Est GFR (Non-African American) 90.4; Potassium 4.4 mmol/L (3.5-5.1)
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
[2019-12-22] MEDS: APIXABAN 5 MG TABLET PO SCH ×2 (08:23→20:05)
[2019-12-22] MEDS: QUETIAPINE FUMARATE 25 MG TABLET PO SCH ×3 (08:24→20:07)
[2019-12-22] MEDS: CHOLECALCIFEROL 1,000 UNITS 25 MCG TAB PO SCH (08:24)
[2019-12-22] MEDS: SENNA 8.6 MG TAB PO SCH ×2 (08:24→20:08)
[2019-12-22] MEDS: METOPROLOL TARTRATE 25 MG TAB PO SCH ×2 (08:24→20:06)
[2019-12-22] MEDS: INSULIN ASPART 100 UNITS/ML 3 ML PEN SC SCH ×4 (08:30→20:09)
[2019-12-22] MEDS: POLYETHYLENE (MIRALAX) 17 GM PACK PO PRN (08:38)
--- NOTE | 2019-12-22 12:18 | Pharmacy Report ---
Pharmacy Glycemic Short Note 2 - Date of Service December 22, 2019 - Glycemic Short BSG Results (Last 24 hours): 12/21/19 12/21/19 12/22/19 16:47 20:26 06:00 Glucose 115 H POC Glucose 177 H 142 H 12/22/19 12/22/19 07:44 11:42 Glucose POC Glucose 131 H 174 H Outpatient Anti-diabetic Regimen: * Lantus 25 units SC HS * Humalog 6 units with breakfast/dinner; 4 units with lunch. Hold Humalog if BSG is less than 150 mg/dL. * A1c = 9.2 % 12/11/19 The patient is currently receiving: * Basal insulin: Lantus 24 units HS until 12/15 12 units on 12/15 19 units on 12/16 16 units on 12/17 8 units on 12/18 14 units on 12/19 16 units on 12/20 * Correctional Insulin: Novolog Correction per scale Goal Range: Low 140 mg/dL - High 180 mg/dL Correction Factor: 30 mg/dL/unit AC and 40 mg/dl/units at HS * Prandial insulin: Per carb ratio of 1 unit per 10 grams CHO consumed AC and 14 at HS Assessment 12/21 * Patient's BSG much improved last evening though today. Will continue current regimen. May need to loosen AC novolog slightly tomorrow. Will monitor. 12/20 * 69 yo male w brittle type 1 diabetes admitted for COVID-19 * Pt had AM fasting hypo on 12/18 therefore insulin dosing significantly reduced. Rebound sustained hyperglycemia the following day - likely from large dose reduction the day prior. Conservatively increasing basal insulin back to target dose of ~ 16 units/day. * Will tighten CF/CR to provide additional coverage while patient still basal deficient. PLAN FOR INPATIENT GLYCEMIC CONTROL: Basal insulin: Lantus * Continue 16 units SC HS Bolus insulin: Novolog (Will continue tightened AC parameters through and monitor if loosening necessary). Will keep HS parameters the same since patient tends to have hypo after large HS correction) * AC * Goal Range: Low 110 mg/dL - High 140 mg/dL * Correction Factor: 25 mg/dL/unit * Nutritional / Prandial insulin per carb ratio of 1 unit per 8 grams CHO consumed * HS * Goal Range: Low 140 mg/dL - High 180 mg/dL * Correction Factor: 40 mg/dL/unit * Nutritional / Prandial insulin per carb ratio of 1 unit per 14 grams CHO consumed
[2019-12-22] MEDS: SERTRALINE HCL 50 MG TABLET PO SCH (20:06)
[2019-12-22] MEDS: INSULIN GLARGINE SOLOSTAR 100 UNITS/ML 3 ML PEN SC SCH (20:08)
[2019-12-23] MEDS: INSULIN ASPART 100 UNITS/ML 3 ML PEN SC SCH ×4 (08:12→21:05)
[2019-12-23] MEDS: SENNA 8.6 MG TAB PO SCH ×2 (08:19→21:06)
[2019-12-23] MEDS: CHOLECALCIFEROL 1,000 UNITS 25 MCG TAB PO SCH (08:19)
[2019-12-23] MEDS: APIXABAN 5 MG TABLET PO SCH ×2 (08:19→21:05)
[2019-12-23] MEDS: QUETIAPINE FUMARATE 25 MG TABLET PO SCH ×3 (08:19→22:27)
[2019-12-23] MEDS: METOPROLOL TARTRATE 25 MG TAB PO SCH ×2 (08:20→21:05)
--- NOTE | 2019-12-23 14:02 | Pharmacy Report ---
Pharmacy Glycemic Short Note 2 - Date of Service December 23, 2019 - Glycemic Short BSG Results (Last 24 hours): 12/22/19 12/22/19 12/23/19 16:43 20:02 07:57 POC Glucose 132 H 194 H 300 H 12/23/19 12/23/19 12/23/19 08:00 10:00 11:57 POC Glucose 299 H 285 H 192 H Outpatient Anti-diabetic Regimen: * Lantus 25 units SC HS * Humalog 6 units with breakfast/dinner; 4 units with lunch. Hold Humalog if BSG is less than 150 mg/dL. * A1c = 9.2 % 12/11/19 The patient is currently receiving: * Basal insulin: Lantus 24 units HS until 12/15 12 units on 12/15 19 units on 12/16 16 units on 12/17 8 units on 12/18 14 units on 12/19 16 units on 12/20 * Correctional Insulin: Novolog Correction per scale Goal Range: Low 140 mg/dL - High 180 mg/dL Correction Factor: 30 mg/dL/unit AC and 40 mg/dl/units at HS * Prandial insulin: Per carb ratio of 1 unit per 10 grams CHO consumed AC and 14 at HS Assessment 12/22: * Patient very well controlled yesterday (receiving 35 units of total insulin), however was 300 this morning (possibly due to overnight snacking?). BSG trended down by lunchtime. I am hesitant to aggressively react to AM blood sugar given labile history and possible snacking. HS NovoLog scale will be somewhat tightened, but will continue current basal dose in order to assess a true trend. 12/21 * Patient's BSG much improved last evening though today. Will continue current regimen. May need to loosen AC novolog slightly tomorrow. Will monitor. 12/20 * 69 yo male w brittle type 1 diabetes admitted for COVID-19 * Pt had AM fasting hypo on 12/18 therefore insulin dosing significantly reduced. Rebound sustained hyperglycemia the following day - likely from large dose reduction the day prior. Conservatively increasing basal insulin back to target dose of ~ 16 units/day. * Will tighten CF/CR to provide additional coverage while patient still basal deficient. PLAN FOR INPATIENT GLYCEMIC CONTROL: Basal insulin: Lantus * Continue 16 units SC HS Bolus insulin: Novolog. * AC * Goal Range: Low 110 mg/dL - High 140 mg/dL * Correction Factor: 25 mg/dL/unit * Nutritional / Prandial insulin per carb ratio of 1 unit per 8 grams CHO consumed * HS * Goal Range: Low 140 mg/dL - High 180 mg/dL * Correction Factor: 35 mg/dL/unit * Nutritional / Prandial insulin per carb ratio of 1 unit per 12 grams CHO consumed
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
[2019-12-23] MEDS: INSULIN GLARGINE SOLOSTAR 100 UNITS/ML 3 ML PEN SC SCH (21:05)
[2019-12-23] MEDS: SERTRALINE HCL 50 MG TABLET PO SCH (21:06)
[2019-12-24] MEDS ORDERED: INSULIN GLARGINE SOLOSTAR 100 UNITS/ML 3 ML PEN SC ONE (07:15)
[2019-12-24] MEDS ORDERED: NovoLIN-N (NPH) PER UNIT CHARGE SQ ONE (07:30)
[2019-12-24] MEDS: INSULIN ASPART 100 UNITS/ML 3 ML PEN SC SCH ×4 (08:16→21:05)
[2019-12-24] MEDS: APIXABAN 5 MG TABLET PO SCH ×2 (08:20→22:09)
[2019-12-24] MEDS: QUETIAPINE FUMARATE 25 MG TABLET PO SCH ×3 (08:20→22:09)
[2019-12-24] MEDS: CHOLECALCIFEROL 1,000 UNITS 25 MCG TAB PO SCH (08:20)
[2019-12-24] MEDS: METOPROLOL TARTRATE 25 MG TAB PO SCH ×2 (08:20→22:09)
[2019-12-24] MEDS: SENNA 8.6 MG TAB PO SCH ×2 (08:29→22:09)
--- NOTE | 2019-12-24 10:53 | Pharmacy Report ---
Pharmacy Glycemic Short Note 2 - Date of Service December 24, 2019 - Glycemic Short BSG Results (Last 24 hours): 12/23/19 12/23/19 12/23/19 11:57 16:47 21:04 POC Glucose 192 H 128 H 97 12/24/19 07:20 POC Glucose 292 H Outpatient Anti-diabetic Regimen: * Lantus 24 units SC HS * Humalog 6 units with breakfast/dinner; 4 units with lunch. Hold Humalog if BSG is less than 150 mg/dL. * A1c = 9.2 % 12/11/19 The patient is currently receiving: * Basal insulin: Lantus 24 units HS until 12/15 12 units on 12/15 19 units on 12/16 16 units on 12/17 8 units on 12/18 14 units on 12/19 16 units on 12/20 16 units on 12/21 0 units on 12/22 (patient refused) * Correctional Insulin: Novolog Correction per scale Goal Range: 110-140 mg/dL AC and 140-180 mg/dL at HS Correction Factor: 25 mg/dL/unit AC and 35 mg/dl/units at HS * Prandial insulin: Per carb ratio of 1 unit per 8 grams CHO consumed AC and 12 at HS Assessment 12/23: * BSG's trended down nicely yesterday, but rebounded this AM to 292 mg/dL, likely 2nd patient refusal of basal insulin 12/22 PM. Based on recent history of significant hyperglycemia with reduced basal insulin, contacted Dr. Hancock. Discussed ongoing plan - insulin drip not desired on COVID-19 unit and patient not likely willing to cooperate with q2h Novolog therefore decided to give NPH x1 this AM and then resume usual HS Lantus schedule * Novolog correction factor tightened at breakfast this AM to provide more rapid-acting insulin to help make up for basal deficiency * Per Dr. Hancock - patient has hx TBI and may not always make the best medical decisions for himself. Therefore, if he again refuses basal insulin, he requested that frequent (~q15 min) re-attempts to have patient accept insulin be attempted. Label comments in Lantus order notifying RN have been entered. 12/22: * Patient very well controlled yesterday (receiving 35 units of total insulin), however was 300 this morning (possibly due to overnight snacking?). BSG trended down by lunchtime. I am hesitant to aggressively react to AM blood sugar given labile history and possible snacking. HS NovoLog scale will be somewhat tightened, but will continue current basal dose in order to assess a true trend. PLAN FOR INPATIENT GLYCEMIC CONTROL: Basal insulin: * NPH 10 units SC x1 NOW * Lantus HS to be resumed tonight Bolus insulin: Novolog. * AC * Goal Range: Low 110 mg/dL - High 140 mg/dL * Correction Factor: 25 mg/dL/unit * Nutritional / Prandial insulin per carb ratio of 1 unit per 8 grams CHO consumed * HS * Goal Range: Low 140 mg/dL - High 180 mg/dL * Correction Factor: 35 mg/dL/unit * Nutritional / Prandial insulin per carb ratio of 1 unit per 12 grams CHO consumed
[2019-12-24] MEDS: INSULIN GLARGINE SOLOSTAR 100 UNITS/ML 3 ML PEN SC SCH (21:05)
[2019-12-24] MEDS: SERTRALINE HCL 50 MG TABLET PO SCH (22:09)
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
[2019-12-25 06:04] LABS: Basophils # (auto) 0.05 K/uL (0-0.2); Basophils % (auto) 0.9 %; Eosinophils % (auto) 1.8 %; Hematocrit (blood only) 33.9 % (42-52); Hemoglobin 11.3 g/dL (14.0-18.0); Immature Granulocytes # (auto) 0.01 K/uL (0.00-0.02); Immature Granulocytes % (auto) 0.2 %; Lymphocytes # (auto) 2.08 K/uL (1.2-3.4); Lymphocytes % (auto) 38.2 %; Mean Corpuscular Hemoglobin 29.4 pg (25-34); Mean Corpuscular Hgb Conc 33.3 g/dL (32-36); Mean Corpuscular Volume 88.3 fL (80-100); Monocytes # (auto) 0.52 K/uL (0.11-0.59); Monocytes % (auto) 9.6 %; Neutrophils # (auto) 2.68 K/uL (1.4-6.5); Neutrophils % (auto) 49.3 %; Platelet Count 531 K/uL (130-400); RDW Coefficient of Variation 14.4 % (11.5-14.5); RDW Standard Deviation 46.7 fL (36.4-46.3); Red Blood Count 3.84 M/uL (4.7-6.1); White Blood Count 5.44 K/uL (4.8-10.8)
[2019-12-25 06:31] LABS: Alanine Aminotransferase 44 U/L (12-78); Albumin Level 2.6 gm/dl (3.4-5.0); Aspartate Aminotransferase 20 U/L (15-37); BUN Creatinine Ratio 30.2 (10-20); Bilirubin Direct < 0.1 mg/dl (0-0.2); Bilirubin,Total 0.3 mg/dl (0.2-1); Blood Urea Nitrogen 26 mg/dl (7-18); Calcium 8.9 mg/dl (8.5-10.1); Carbon Dioxide 29 mmol/L (21-32); Chloride 105 mmol/L (98-107); Creatinine Clr Calc Pharmacy 73.3 ml/min; Est GFR (African American) 102.8; Est GFR (Non-African American) 88.7; Glucose 80 mg/dl (70-99); Potassium 4.3 mmol/L (3.5-5.1); Sodium 137 mmol/L (136-145)
[2019-12-25 06:33] LABS: Albumin Globulin Ratio 0.6 (0.9-2); Alkaline Phosphatase 96 U/L (45-117); Globulin 4.3 gm/dl (2.5-4.0); Total Protein 6.9 gm/dl (6.4-8.2)
[2019-12-25 06:39] LABS: C Reactive Protein 0.54 mg/dl (0-0.29); Ferritin 285.3 ng/ml (8-388)
[2019-12-25] MEDS: QUETIAPINE FUMARATE 25 MG TABLET PO SCH ×3 (08:20→21:34)
[2019-12-25] MEDS: APIXABAN 5 MG TABLET PO SCH ×2 (08:20→21:34)
[2019-12-25] MEDS: SENNA 8.6 MG TAB PO SCH ×2 (08:21→21:35)
[2019-12-25] MEDS: CHOLECALCIFEROL 1,000 UNITS 25 MCG TAB PO SCH (08:23)
[2019-12-25] MEDS: INSULIN ASPART 100 UNITS/ML 3 ML PEN SC SCH ×4 (08:23→21:35)
[2019-12-25] MEDS: METOPROLOL TARTRATE 25 MG TAB PO SCH ×2 (08:24→21:35)
--- NOTE | 2019-12-25 12:11 | Pharmacy Report ---
Pharmacy Glycemic Short Note 2 - Date of Service December 25, 2019 - Glycemic Short BSG Results (Last 24 hours): 12/24/19 12/24/19 12/24/19 16:45 16:51 21:03 Glucose POC Glucose 60 L* 78 125 H 12/25/19 12/25/19 12/25/19 05:45 07:36 11:38 Glucose 80 POC Glucose 85 223 H Outpatient Anti-diabetic Regimen: * Lantus 24 units SC HS * Humalog 6 units with breakfast/dinner; 4 units with lunch. Hold Humalog if BSG is less than 150 mg/dL. * A1c = 9.2 % 12/11/19 The patient is currently receiving: * Basal insulin: Lantus Q HS per scale: 16 units if BSG less than 180, 18 units if BSG above 180 * Correctional Insulin: Novolog Correction per scale Goal Range: 110-140 mg/dL AC and 140-180 mg/dL at HS Correction Factor: 25 mg/dL/unit AC and 35 m g/dl/units at HS * Prandial insulin: Per carb ratio of 1 unit per 8 grams CHO consumed AC and 12 at HS Assessment 12/24: * Fasting BSG 80 this AM w/ 26 units basal insulin on board (10units AM + 16units PM yesterday). No correctional insulin given at bedtime last evening * Pre-dinner was low yesterday, likely secondary to excess correctional insulin used at lunchtime in combo with NPH given in AM to make-up for basal deficiency - will lessen correctional insulin dose now that basal deficiency corrected. Pt's total daily insulin doses are low thus correctional dose likely less than currently ordered. * Prandial insulin dose likely near where it should be given BSG pattern over last few days - will only lessen slightly due to recent post-prandial hypo- * Patient appears to require ~35-40 units/day when tolerating a diet (similar to what out-pt regimen provided) 12/23: * BSG's trended down nicely yesterday, but rebounded this AM to 292 mg/dL, likely 2nd patient refusal of basal insulin 6/ PM. Based on recent history of significant hyperglycemia with reduced basal insulin, contacted Dr. Hancock. Discussed ongoing plan - insulin drip not desired on COVID-19 unit and patient not likely willing to cooperate with q2h Novolog therefore decided to give NPH x1 this AM and then resume usual HS Lantus schedule * Novolog correction factor tightened at breakfast this AM to provide more rapid-acting insulin to help make up for basal deficiency * Per Dr. Hancock - patient has hx TBI and may not always make the best medical decisions for himself. Therefore, if he again refuses basal insulin, he requested that frequent (~q15 min) re-attempts to have patient accept insulin be attempted. Label comments in Lantus order notifying RN have been entered. 12/22: * Patient very well controlled yesterday (receiving 35 units of total insulin), however was 300 this morning (possibly due to overnight snacking?). BSG trended down by lunchtime. I am hesitant to aggressively react to AM blood sugar given labile history and possible snacking. HS NovoLog scale will be somewhat tightened, but will continue current basal dose in order to assess a true trend. PLAN FOR INPATIENT GLYCEMIC CONTROL: Basal insulin: (no change) * Lantus Q HS per scale: 16 units if BSG less than 180, 18 units if BSG 180 or greater Bolus insulin: Novolog (lessening correctional insulin doses due to relatively low total daily insulin requirements, plus small prandial insulin reduction) * AC * Goal Range: Low 110 mg/dL - High 140 mg/dL * Correction Factor: 35 mg/dL/unit * Nutritional / Prandial insulin per carb ratio of 1 unit per 9 grams CHO consumed * HS * Goal Range: Low 140 mg/dL - High 180 mg/dL * Correction Factor: 40 mg/dL/unit * Nutritional / Prandial insulin per carb ratio of 1 unit per 14 grams CHO consumed
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
[2019-12-25] MEDS: LOSARTAN POTASSIUM 25 MG TAB PO SCH (16:54)
[2019-12-25] MEDS: SERTRALINE HCL 50 MG TABLET PO SCH (21:35)
[2019-12-25] MEDS: INSULIN GLARGINE SOLOSTAR 100 UNITS/ML 3 ML PEN SC SCH (21:35)
[2019-12-26] MEDS: INSULIN ASPART 100 UNITS/ML 3 ML PEN SC SCH ×5 (00:57→20:40)
[2019-12-26] MEDS ORDERED: NovoLIN-N (NPH) PER UNIT CHARGE SQ ONE (07:30)
[2019-12-26] MEDS: QUETIAPINE FUMARATE 25 MG TABLET PO SCH ×3 (08:03→20:39)
[2019-12-26] MEDS: SENNA 8.6 MG TAB PO SCH ×2 (08:04→20:40)
[2019-12-26] MEDS: APIXABAN 5 MG TABLET PO SCH ×2 (08:04→20:39)
[2019-12-26] MEDS: METOPROLOL TARTRATE 25 MG TAB PO SCH ×2 (08:04→20:39)
[2019-12-26] MEDS: CHOLECALCIFEROL 1,000 UNITS 25 MCG TAB PO SCH (08:06)
[2019-12-26] MEDS: LOSARTAN POTASSIUM 25 MG TAB PO SCH (08:07)
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
[2019-12-26] MEDS: INSULIN GLARGINE SOLOSTAR 100 UNITS/ML 3 ML PEN SC SCH (20:39)
[2019-12-26] MEDS: SERTRALINE HCL 50 MG TABLET PO SCH (20:40)
[2019-12-27] MEDS: SENNA 8.6 MG TAB PO SCH ×2 (08:28→20:46)
[2019-12-27] MEDS: QUETIAPINE FUMARATE 25 MG TABLET PO SCH ×3 (08:29→20:45)
[2019-12-27] MEDS: LOSARTAN POTASSIUM 25 MG TAB PO SCH (08:29)
[2019-12-27] MEDS: APIXABAN 5 MG TABLET PO SCH ×2 (08:29→20:46)
[2019-12-27] MEDS: CHOLECALCIFEROL 1,000 UNITS 25 MCG TAB PO SCH (08:29)
[2019-12-27] MEDS: METOPROLOL TARTRATE 25 MG TAB PO SCH ×2 (08:29→20:46)
[2019-12-27] MEDS: INSULIN ASPART 100 UNITS/ML 3 ML PEN SC SCH ×6 (08:36→20:43)
[2019-12-27] MEDS ORDERED: INSULIN GLARGINE SOLOSTAR 100 UNITS/ML 3 ML PEN SC SCH (09:00)
--- NOTE | 2019-12-27 10:22 | Pharmacy Report ---
Pharmacy Glycemic Short Note 2 - Date of Service December 27, 2019 - Glycemic Short BSG Results (Last 24 hours): 12/26/19 12/26/19 12/27/19 11:16 16:16 08:11 POC Glucose 172 H 262 H 370 H* 12/27/19 08:12 POC Glucose 367 H* Outpatient Anti-diabetic Regimen: * Lantus 24 units SC HS * Humalog 6 units with breakfast/dinner; 4 units with lunch. Hold Humalog if BSG is less than 150 mg/dL. * A1c = 9.2 % 12/11/19 The patient is currently receiving: * Basal insulin: Lantus Q HS per scale: 16 units if BSG less than 180, 18 units if BSG above 180 * Correctional Insulin: Novolog Correction per scale Goal Range: 110-140 mg/dL AC and 140-180 mg/dL at HS Correction Factor: 25 mg/dL/unit AC and 35 mg/dl/units at HS * Prandial insulin: Per carb ratio of 1 unit per 8 grams CHO consumed AC and 12 at HS Assessment 12/26: * Patient received 17 units of insulin yesterday, of which only 8 units were basal insulin * Patient refused evening Lantus and also 2 novolog checks yesterday * Discussed with provider - since BSGs elevated this AM plan to check BMP / labs w/in range * Ordered home Lantus dose for this AM - tightened CF/CR for AM check * Provider will discuss with nurse importance of talking with patient prior to insulin administration to ensure patient does not refuse dosing moving forward * Provider would like to continue with SQ insulin dosing and would like to avoid insulin drip 12/25: * BSGs have ranged 133-223 over last 24 hrs. * Patient received only 7 units of insulin yesterday due to refusal of multiple doses of Novolog as well as his HS Lantus dose last evening * Fasting BSG 193 this AM, with no basal insulin on board. Normal AG and bicarb on today's labs. * Will give NPH dose this AM to address basal insulin deficiency with plans to resume usual Lantus dose this PM. Discussed necessity of basal insulin administration this AM with patient's RN and requested to be notified if pt refuses dose. Requested insulin doses be offered more than once if refused. * Continue current Novolog CF and CR for now given inability to assess response due to multiple refused doses yesterday 12/24: * Fasting BSG 80 this AM w/ 26 units basal insulin on board (10units AM + 16units PM yesterday). No correctional insulin given at bedtime last evening * Pre-dinner was low yesterday, likely secondary to excess correctional insulin used at lunchtime in combo with NPH given in AM to make-up for basal deficiency - will lessen correctional insulin dose now that basal deficiency corrected. Pt's total daily insulin doses are low thus correctional dose likely less than currently ordered. * Prandial insulin dose likely near where it should be given BSG pattern over last few days - will only lessen slightly due to recent post-prandial hypo- * Patient appears to require ~35-40 units/day when tolerating a diet (similar to what out-pt regimen provided) 12/23: * BSG's trended down nicely yesterday, but rebounded this AM to 292 mg/dL, likely 2nd patient refusal of basal insulin 12/22 PM. Based on recent history of significant hyperglycemia with reduced basal insulin, contacted Dr. Hancock. Discussed ongoing plan - insulin drip not desired on COVID-19 unit and patient not likely willing to cooperate with q2h Novolog therefore decided to give NPH x1 this AM and then resume usual HS Lantus schedule * Novolog correction factor tightened at breakfast this AM to provide more rapid-acting insulin to help make up for basal deficiency * Per Dr. Hancock - patient has hx TBI and may not always make the best medical decisions for himself. Therefore, if he again refuses basal insulin, he requested that frequent (~q15 min) re-attempts to have patient accept insulin be attempted. Label comments in Lantus order notifying RN have been entered. PLAN FOR INPATIENT GLYCEMIC CONTROL: Basal insulin: * Lantus 24 units Qam x 1 this morning * Reassess basal needs 12/27 AM Bolus insulin: Novolog * AC * Goal Range: Low 110 mg/dL - High 140 mg/dL * Correction Factor: 25 mg/dL/unit * Nutritional / Prandial insulin per carb ratio of 1 unit per 8 grams CHO consumed * HS * Goal Range: Low 140 mg/dL - High 180 mg/dL * Correction Factor: 40 mg/dL/unit * Nutritional / Prandial insulin per carb ratio of 1 unit per 14 grams CHO consumed
[2019-12-27 10:47] LABS: BUN Creatinine Ratio 24.5 (10-20); Calcium 9.4 mg/dl (8.5-10.1); Est GFR (African American) 82.2; Potassium 5.1 mmol/L (3.5-5.1)
[2019-12-27 11:02] LABS: Beta-Hydroxybutyrate 5.57 mg/dl (0.2-2.81)
[2019-12-27] MEDS ORDERED: SODIUM CHLORIDE 0.9% 1000ML 1,000 ML IV SCH (12:45)
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
[2019-12-27] MEDS: CARBOHYDRATES FOR HYPOGLYCEMIA PO PRN (20:44)
[2019-12-27] MEDS: SERTRALINE HCL 50 MG TABLET PO SCH (20:47)
[2019-12-28] MEDS ORDERED: INSULIN ASPART 100 UNITS/ML 3 ML PEN SC SCH
[2019-12-28 06:51] LABS: Basophils # (auto) 0.03 K/uL (0-0.2); Basophils % (auto) 0.5 %; Eosinophils # (auto) 0.13 K/uL (0-0.5); Hematocrit (blood only) 34.6 % (42-52); Hemoglobin 11.6 g/dL (14.0-18.0); Immature Granulocytes # (auto) 0.01 K/uL (0.00-0.02); Immature Granulocytes % (auto) 0.2 %; Lymphocytes # (auto) 1.78 K/uL (1.2-3.4); Lymphocytes % (auto) 27.5 %; Mean Corpuscular Hemoglobin 29.2 pg (25-34); Mean Corpuscular Hgb Conc 33.5 g/dL (32-36); Mean Corpuscular Volume 87.2 fL (80-100); Mean Platelet Volume 9.1 fL (7.4-10.4); Monocytes # (auto) 0.39 K/uL (0.11-0.59); Neutrophils # (auto) 4.14 K/uL (1.4-6.5); Neutrophils % (auto) 63.8 %; Platelet Count 439 K/uL (130-400); RDW Coefficient of Variation 14.3 % (11.5-14.5); RDW Standard Deviation 45.1 fL (36.4-46.3); Red Blood Count 3.97 M/uL (4.7-6.1); White Blood Count 6.48 K/uL (4.8-10.8)
[2019-12-28 07:39] LABS: Alanine Aminotransferase 40 U/L (12-78); Aspartate Aminotransferase 13 U/L (15-37); BUN Creatinine Ratio 23.9 (10-20); Bilirubin Direct 0.1 mg/dl (0-0.2); Blood Urea Nitrogen 21 mg/dl (7-18); C Reactive Protein < 0.29 mg/dl (0-0.29); Calcium 9.3 mg/dl (8.5-10.1); Carbon Dioxide 28 mmol/L (21-32); Chloride 106 mmol/L (98-107); Creatinine Clr Calc Pharmacy 73.5 ml/min; Est GFR (African American) 103.3; Est GFR (Non-African American) 89.1; Glucose 98 mg/dl (70-99); Potassium 4.3 mmol/L (3.5-5.1); Sodium 138 mmol/L (136-145)
[2019-12-28 07:45] LABS: Albumin Globulin Ratio 0.7 (0.9-2); Alkaline Phosphatase 103 U/L (45-117); Bilirubin,Total 0.3 mg/dl (0.2-1); Ferritin 338.8 ng/ml (8-388); Globulin 4.3 gm/dl (2.5-4.0); Total Protein 7.3 gm/dl (6.4-8.2)
[2019-12-28] MEDS: APIXABAN 5 MG TABLET PO SCH ×3 (08:13→21:02)
[2019-12-28] MEDS: CHOLECALCIFEROL 1,000 UNITS 25 MCG TAB PO SCH (08:13)
[2019-12-28] MEDS: LOSARTAN POTASSIUM 25 MG TAB PO SCH (08:14)
[2019-12-28] MEDS: SENNA 8.6 MG TAB PO SCH ×3 (08:14→21:02)
[2019-12-28] MEDS: QUETIAPINE FUMARATE 25 MG TABLET PO SCH ×4 (08:14→21:02)
[2019-12-28] MEDS: METOPROLOL TARTRATE 25 MG TAB PO SCH ×3 (08:15→21:02)
[2019-12-28] MEDS: INSULIN ASPART 100 UNITS/ML 3 ML PEN SC SCH ×6 (08:19→20:36)
--- NOTE | 2019-12-28 10:16 | Pharmacy Report ---
Pharmacy Glycemic Short Note 2 - Date of Service December 28, 2019 - Glycemic Short BSG Results (Last 24 hours): 12/27/19 12/27/19 12/27/19 09:35 10:57 17:27 Glucose 386 H* POC Glucose 343 H* 197 H 12/27/19 12/27/19 12/27/19 20:35 21:12 21:32 Glucose POC Glucose 49 L* 63 L* 70 12/28/19 12/28/19 12/28/19 00:14 00:36 06:27 Glucose 98 POC Glucose 66 L* 79 12/28/19 07:36 Glucose POC Glucose 131 H Outpatient Anti-diabetic Regimen: * Lantus 24 units SC HS * Humalog 6 units with breakfast/dinner; 4 units with lunch. Hold Humalog if BSG is less than 150 mg/dL. * A1c = 9.2 % 12/11/19 The patient is currently receiving: * Basal insulin: Lantus Q HS per scale: 16 units if BSG less than 180, 18 units if BSG above 180 * Correctional Insulin: Novolog Correction per scale Goal Range: 110-140 mg/dL AC and 140-180 mg/dL at HS Correction Factor: 25 mg/dL/unit AC and 35 mg/dl/units at HS * Prandial insulin: Per carb ratio of 1 unit per 8 grams CHO consumed AC and 12 at HS Assessment 12/27: * Patient received total of 49 units of insulin yesterday, of which 24 were basa l insulin * Fasting BSG this AM 98 mg/dL - continue Lantus today, but scale back * BSGs yesterday afternoon down to 49 mg/dL - treated per hypglycemia protocol. Likely related to too much novolog given in afternoon. Insulin administration from lunch given later in afternoon and used to cover earlier BSG. Will follow up with nurse today to make sure point of care blood sugars are redrawn if insulin administration is >2 hours late 12/26: * Patient received 17 units of insulin yesterday, of which only 8 units were basal insulin * Patient refused evening Lantus and also 2 novolog checks yesterday * Discussed with provider - since BSGs elevated this AM plan to check BMP / labs w/in range * Ordered home Lantus dose for this AM - tightened CF/CR for AM check * Provider will discuss with nurse importance of talking with patient prior to insulin administration to ensure patient does not refuse dosing moving forward * Provider would like to continue with SQ insulin dosing and would like to avoid insulin drip 12/25: * BSGs have ranged 133-223 over last 24 hrs. * Patient received only 7 units of insulin yesterday due to refusal of multiple doses of Novolog as well as his HS Lantus dose last evening * Fasting BSG 193 this AM, with no basal insulin on board. Normal AG and bicarb on today's labs. * Will give NPH dose this AM to address basal insulin deficiency with plans to resume usual Lantus dose this PM. Discussed necessity of basal insulin administration this AM with patient's RN and requested to be notified if pt refuses dose. Requested insulin doses be offered more than once if refused. * Continue current Novolog CF and CR for now given inability to assess response due to multiple refused doses yesterday PLAN FOR INPATIENT GLYCEMIC CONTROL: Basal insulin: * Lantus - restart at lunch time / scale back ~30% Bolus insulin: Novolog * AC * Goal Range: Low 110 mg/dL - High 140 mg/dL * Correction Factor: 35 mg/dL/unit * Nutritional / Prandial insulin per carb ratio of 1 unit per 9 grams CHO consumed * HS * Goal Range: Low 140 mg/dL - High 180 mg/dL * Correction Factor: 40 mg/dL/unit * Nutritional / Prandial insulin per carb ratio of 1 unit per 14 grams CHO consumed
[2019-12-28] MEDS: INSULIN GLARGINE SOLOSTAR 100 UNITS/ML 3 ML PEN SC SCH ×2 (11:57→13:59)
[2019-12-28] MEDS ORDERED: INSULIN GLARGINE SOLOSTAR 100 UNITS/ML 3 ML PEN SC SCH (12:00)
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
[2019-12-28] MEDS: POLYETHYLENE (MIRALAX) 17 GM PACK PO PRN (17:16)
[2019-12-28] MEDS: SERTRALINE HCL 50 MG TABLET PO SCH ×2 (20:43→21:02)
[2019-12-29] MEDS: QUETIAPINE FUMARATE 25 MG TABLET PO SCH ×3 (08:27→20:58)
[2019-12-29] MEDS: SENNA 8.6 MG TAB PO SCH ×2 (08:27→20:57)
[2019-12-29] MEDS: APIXABAN 5 MG TABLET PO SCH ×2 (08:29→20:58)
[2019-12-29] MEDS: METOPROLOL TARTRATE 25 MG TAB PO SCH ×2 (08:29→20:58)
[2019-12-29] MEDS: LOSARTAN POTASSIUM 25 MG TAB PO SCH (08:29)
[2019-12-29] MEDS: CHOLECALCIFEROL 1,000 UNITS 25 MCG TAB PO SCH (08:30)
[2019-12-29] MEDS: INSULIN ASPART 100 UNITS/ML 3 ML PEN SC SCH ×4 (08:37→20:57)
[2019-12-29] MEDS: INSULIN GLARGINE SOLOSTAR 100 UNITS/ML 3 ML PEN SC SCH (08:39)
[2019-12-29 08:52] LABS: BUN Creatinine Ratio 30.4 (10-20); Calcium 9.1 mg/dl (8.5-10.1); Creatinine Clr Calc Pharmacy 55.9 ml/min; Est GFR (Non-African American) 66.4; Potassium 4.7 mmol/L (3.5-5.1)
[2019-12-29] MEDS ORDERED: INSULIN GLARGINE SOLOSTAR 100 UNITS/ML 3 ML PEN SC SCH (09:00)
--- NOTE | 2019-12-29 13:31 | Pharmacy Report ---
Pharmacy Glycemic Short Note 2 - Date of Service December 29, 2019 - Glycemic Short BSG Results (Last 24 hours): 12/28/19 12/28/19 12/28/19 16:34 16:56 20:18 Glucose POC Glucose 334 H* 324 H* 176 H 12/29/19 12/29/19 12/29/19 07:35 08:08 11:49 Glucose 68 L POC Glucose 82 154 H Outpatient Anti-diabetic Regimen: * Lantus 24 units SC HS * Humalog 6 units with breakfast/dinner; 4 units with lunch. Hold Humalog if BSG is less than 150 mg/dL. * A1c = 9.2 % 12/11/19 The patient is currently receiving: * Basal insulin: Lantus Q HS per scale: 16 units if BSG less than 180, 18 units if BSG above 180 * Correctional Insulin: Novolog Correction per scale Goal Range: 140-180 mg/dL ACHS Correction Factor: 35 mg/dL/unit AC and 40 mg/dl/units at HS * Prandial insulin: Per carb ratio of 1 unit per 9 grams CHO consumed AC and 14 at HS Assessment 12/28: * Patient received total of 36 units of insulin yesterday, 18 units of basal * Fasting BSG this AM 82- decreased lantus by 10% * BSG improved today at lunch 154, will continue current novolog parameters, continue to monitor for needed changes 12/27: * Patient received total of 49 units of insulin yesterday, of which 24 were basal insulin * Fasting BSG this AM 98 mg/dL - continue Lantus today, but scale back * BSGs yesterday afternoon down to 49 mg/dL - treated per hypglycemia protocol. Likely related to too much novolog given in afternoon. Insulin administration from lunch given later in afternoon and used to cover earlier BSG. Will follow up with nurse today to make sure point of care blood sugars are redrawn if insulin administration is >2 hours late 12/26: * Patient received 17 units of insulin yesterday, of which only 8 units were basal insulin * Patient refused evening Lantus and also 2 novolog checks yesterday * Discussed with provider - since BSGs elevated this AM plan to check BMP / labs w/in range * Ordered home Lantus dose for this AM - tightened CF/CR for AM check * Provider will discuss with nurse importance of talking with patient prior to insulin administration to ensure patient does not refuse dosing moving forward * Provider would like to continue with SQ insulin dosing and would like to avoid insulin drip 12/25: * BSGs have ranged 133-223 over last 24 hrs. * Patient received only 7 units of insulin yesterday due to refusal of multiple doses of Novolog as well as his HS Lantus dose last evening * Fasting BSG 193 this AM, with no basal insulin on board. Normal AG and bicarb on today's labs. * Will give NPH dose this AM to address basal insulin deficiency with plans to resume usual Lantus dose this PM. Discussed necessity of basal insulin administration this AM with patient's RN and requested to be notified if pt refuses dose. Requested insulin doses be offered more than once if refused. * Continue current Novolog CF and CR for now given inability to assess response due to multiple refused doses yesterday PLAN FOR INPATIENT GLYCEMIC CONTROL: Basal insulin: * Lantus - reduced 10% today Bolus insulin: Novolog * AC * Goal Range: Low 110 mg/dL - High 140 mg/dL * Correction Factor: 35 mg/dL/unit * Nutritional / Prandial insulin per carb ratio of 1 unit per 9 grams CHO consumed * HS * Goal Range: Low 140 mg/dL - High 180 mg/dL * Correction Factor: 40 mg/dL/unit * Nutritional / Prandial insulin per carb ratio of 1 unit per 14 grams CHO consumed
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
[2019-12-29] MEDS: SERTRALINE HCL 50 MG TABLET PO SCH (20:57)
[2019-12-30] MEDS: INSULIN GLARGINE SOLOSTAR 100 UNITS/ML 3 ML PEN SC SCH (08:15)
[2019-12-30] MEDS: INSULIN ASPART 100 UNITS/ML 3 ML PEN SC SCH ×4 (08:22→20:33)
[2019-12-30] MEDS: SENNA 8.6 MG TAB PO SCH ×2 (08:25→20:29)
[2019-12-30] MEDS: QUETIAPINE FUMARATE 25 MG TABLET PO SCH ×3 (08:26→20:29)
[2019-12-30] MEDS: LOSARTAN POTASSIUM 25 MG TAB PO SCH (08:29)
[2019-12-30] MEDS: CHOLECALCIFEROL 1,000 UNITS 25 MCG TAB PO SCH (08:29)
[2019-12-30] MEDS: METOPROLOL TARTRATE 25 MG TAB PO SCH ×2 (08:30→20:29)
[2019-12-30] MEDS: APIXABAN 5 MG TABLET PO SCH ×2 (08:30→20:29)
[2019-12-30 08:40] LABS: BUN Creatinine Ratio 32.5 (10-20); Calcium 8.7 mg/dl (8.5-10.1); Creatinine Clr Calc Pharmacy 63.2 ml/min; Est GFR (African American) 88.2; Est GFR (Non-African American) 76.1; Potassium 4.6 mmol/L (3.5-5.1)
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
[2019-12-30] MEDS: SERTRALINE HCL 50 MG TABLET PO SCH (20:29)
[2019-12-30] MEDS ORDERED: INSULIN GLARGINE SOLOSTAR 100 UNITS/ML 3 ML PEN SC ONE (21:00)
[2019-12-31] MEDS: INSULIN GLARGINE SOLOSTAR 100 UNITS/ML 3 ML PEN SC SCH (07:58)
[2019-12-31] MEDS: INSULIN ASPART 100 UNITS/ML 3 ML PEN SC SCH ×4 (08:00→20:27)
[2019-12-31] MEDS: QUETIAPINE FUMARATE 25 MG TABLET PO SCH ×3 (08:04→20:27)
[2019-12-31] MEDS: SENNA 8.6 MG TAB PO SCH ×2 (08:05→20:27)
[2019-12-31] MEDS: LOSARTAN POTASSIUM 25 MG TAB PO SCH (08:05)
[2019-12-31] MEDS: APIXABAN 5 MG TABLET PO SCH ×2 (08:05→20:27)
[2019-12-31] MEDS: CHOLECALCIFEROL 1,000 UNITS 25 MCG TAB PO SCH (08:06)
[2019-12-31] MEDS: METOPROLOL TARTRATE 25 MG TAB PO SCH ×2 (08:06→20:27)
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
--- NOTE | 2019-12-31 14:31 | Pharmacy Report ---
Glycemic Control Progress Note - Date of Service December 31, 2019 - Scope Glycemic Pharmacist consulted for glycemic control to write orders per [facility] inpatient glycemic control protocol. - Objective Accuchecks BSG(last 24 hours):: 12/31/19 12/31/19 07:18 11:49 POC Glucose 224 H 178 H HbA1c:: Hemoglobin A1c 9.2 % (4.5-5.6) H 12/11/19 05:31 - Recent Pertinent Medications The patient is currently receiving: * Basal insulin: Lantus 16 units every 24 hours * Correctional Insulin: Novolog Correction per scale ACHS Goal Range: Low 140 mg/dL - High 180 mg/dL Correction Factor: 30 mg/dL/unit * Prandial insulin: Per carb ratio of 1 unit per 9 grams CHO consumed - Outpatient Anti-Diabetic Meds Lantus 24 units HS Novolog - Assessment & Plan ASSESSMENT: * See progress note from 12/17/2019 for more background info, in short: * Pt receiving SQ basal bolus insulin regimen for hyperglycemia secondary to baseline DM (outpatient regimen on hold). Patient oftentimes refuses insulin and accuchecks. * Patient is currently receiving an average of 36 units of insulin per day * 16 units of basal insulin * 20 units of prandial/correctional insulin * BSGs ranging 280 - 284 mg/dl over the past 24hrs * Changes needed to insulin regimen: * AM Fasting BSG = 224 mg/dl. This is slightly above goal range for patient based on inpatient targets and co-morbidities. Therefore Basal insulin will be increased slightly to 18 units. This is closer to his home regimen. * Post-prandial BSGs are relatively okay. Patient refused dinner and evening BSG check so will not adjust. * Total daily dose = ? units. Varies depending on how often patient will take insulin. PLAN FOR INPATIENT GLYCEMIC CONTROL: * Increasing Lantus to 18 units SQ qAM * Continuing correction factor to 30 mg/dl/unit * Continuing carb ratio of 1 unit per 10 grams CHO consumed * Continuing goal range of Low 140 mg/dL - High 180 mg/dL * Please note that the plan above was derived based on current level of insulin resistance and hospital stress. These recommendations are appropriate for inpatient admission only. Plan of care upon discharge will need to be reassessed to avoid potential outpatient hypo/hyperglycemia. Thank you.
[2019-12-31] MEDS: SERTRALINE HCL 50 MG TABLET PO SCH (20:27)
[2020-01-01] MEDS: SENNA 8.6 MG TAB PO SCH ×2 (08:13→21:04)
[2020-01-01] MEDS: APIXABAN 5 MG TABLET PO SCH ×2 (08:13→21:03)
[2020-01-01] MEDS: QUETIAPINE FUMARATE 25 MG TABLET PO SCH ×4 (08:14→21:04)
[2020-01-01] MEDS: METOPROLOL TARTRATE 25 MG TAB PO SCH ×2 (08:15→21:03)
[2020-01-01] MEDS: INSULIN ASPART 100 UNITS/ML 3 ML PEN SC SCH ×4 (08:22→21:03)
[2020-01-01] MEDS: LOSARTAN POTASSIUM 25 MG TAB PO SCH (08:23)
[2020-01-01] MEDS: INSULIN GLARGINE SOLOSTAR 100 UNITS/ML 3 ML PEN SC SCH (08:25)
--- NOTE | 2020-01-01 11:05 | Pharmacy Report ---
Pharmacy Glycemic Short Note 2 - Date of Service January 01, 2020 - Glycemic Short BSG Results (Last 24 hours): 12/31/19 12/31/19 01/01/20 11:49 16:47 06:23 POC Glucose 178 H 84 96 01/01/20 08:00 POC Glucose 119 H Outpatient Anti-diabetic Regimen: * Lantus 24 units SC HS * Humalog 6 units with breakfast/dinner; 4 units with lunch. Hold Humalog if BSG is less than 150 mg/dL. * A1c = 9.2 % 12/11/19 The patient is currently receiving: * Basal insulin: Lantus Q HS per scale: 16 units if BSG less than 180, 18 units if BSG above 180 * Correctional Insulin: Novolog Correction per scale Goal Range: 140-180 mg/dL ACHS Correction Factor: 30 mg/dL/unit AC and 40 mg/dl/units at HS * Prandial insulin: Per carb ratio of 1 unit per 9 grams CHO consumed AC and 14 at HS Assessment 12/31: * Patient received 37 units of insulin yesterday, 18 units of basal, 19 units prandial + correctional * Changes needed to insulin regimen: * AM Fasting BSG = 96 mg/dl. This is within goal range for patient based on inpatient targets and co-morbidities. Therefore Basal insulin will be the same today; will continue to monitor trend. This is closer to his home regimen. * Post-prandial BSGs improved yesterday. Patient refused evening BSG check so will not adjust. * Total daily dose = ? units. Varies depending on how often patient will take insulin. 12/28: * Patient received total of 36 units of insulin yesterday, 18 units of basal * Fasting BSG this AM 82- decreased lantus by 10% * BSG improved today at lunch 154, will continue current novolog parameters, continue to monitor for needed changes 12/27: * Patient received total of 49 units of insulin yesterday, of which 24 were basal insulin * Fasting BSG this AM 98 mg/dL - continue Lantus today, but scale back * BSGs yesterday afternoon down to 49 mg/dL - treated per hypglycemia protocol. Likely related to too much novolog given in afternoon. Insulin administration from lunch given later in afternoon and used to cover earlier BSG. Will follow up with nurse today to make sure point of care blood sugars are redrawn if insulin administration is >2 hours late 12/26: * Patient received 17 units of insulin yesterday, of which only 8 units were basal insulin * Patient refused evening Lantus and also 2 novolog checks yesterday * Discussed with provider - since BSGs elevated this AM plan to check BMP / labs w/in range * Ordered home Lantus dose for this AM - tightened CF/CR for AM check * Provider will discuss with nurse importance of talking with patient prior to insulin administration to ensure patient does not refuse dosing moving forward * Provider would like to continue with SQ insulin dosing and would like to avoid insulin drip 12/25: * BSGs have ranged 133-223 over last 24 hrs. * Patient received only 7 units of insulin yesterday due to refusal of multiple doses of Novolog as well as his HS Lantus dose last evening * Fasting BSG 193 this AM, with no basal insulin on board. Normal AG and bicarb on today's labs. * Will give NPH dose this AM to address basal insulin deficiency with plans to resume usual Lantus dose this PM. Discussed necessity of basal insulin administration this AM with patient's RN and requested to be notified if pt refuses dose. Requested insulin doses be offered more than once if refused. * Continue current Novolog CF and CR for now given inability to assess response due to multiple refused doses yesterday PLAN FOR INPATIENT GLYCEMIC CONTROL: Basal insulin: * Lantus 18 units SQ QAM Bolus insulin: Novolog * AC * Goal Range: Low 140 mg/dL - High 180 mg/dL * Correction Factor: 30 mg/dL/unit * Nutritional / Prandial insulin per carb ratio of 1 unit per 9 grams CHO consumed * HS * Goal Range: Low 140 mg/dL - High 180 mg/dL * Correction Factor: 40 mg/dL/unit * Nutritional / Prandial insulin per carb ratio of 1 unit per 14 grams CHO consumed
[2020-01-01] MEDS: CHOLECALCIFEROL 1,000 UNITS 25 MCG TAB PO SCH ×2 (11:10→13:05)
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
[2020-01-01] MEDS: SERTRALINE HCL 50 MG TABLET PO SCH (21:04)
[2020-01-01] MEDS: DEXTROSE 50% 50 ML SYRINGE IV PRN (21:10)
[2020-01-02] MEDS: INSULIN ASPART 100 UNITS/ML 3 ML PEN SC SCH ×4 (08:20→20:42)
[2020-01-02] MEDS: APIXABAN 5 MG TABLET PO SCH ×3 (08:21→20:25)
[2020-01-02] MEDS: SENNA 8.6 MG TAB PO SCH ×3 (08:21→20:25)
[2020-01-02] MEDS: METOPROLOL TARTRATE 25 MG TAB PO SCH ×3 (08:22→20:25)
[2020-01-02] MEDS: INSULIN GLARGINE SOLOSTAR 100 UNITS/ML 3 ML PEN SC SCH (08:22)
[2020-01-02] MEDS: LOSARTAN POTASSIUM 25 MG TAB PO SCH (08:24)
[2020-01-02] MEDS: CHOLECALCIFEROL 1,000 UNITS 25 MCG TAB PO SCH (08:24)
[2020-01-02] MEDS: QUETIAPINE FUMARATE 25 MG TABLET PO SCH ×4 (08:25→20:26)
[2020-01-02] MEDS: SERTRALINE HCL 50 MG TABLET PO SCH ×2 (20:08→20:26)
[2020-01-03] MEDS: QUETIAPINE FUMARATE 25 MG TABLET PO SCH ×3 (07:53→20:34)
[2020-01-03] MEDS: CHOLECALCIFEROL 1,000 UNITS 25 MCG TAB PO SCH (07:54)
[2020-01-03] MEDS: LOSARTAN POTASSIUM 25 MG TAB PO SCH (07:54)
[2020-01-03] MEDS: SENNA 8.6 MG TAB PO SCH ×2 (07:54→20:35)
[2020-01-03] MEDS: METOPROLOL TARTRATE 25 MG TAB PO SCH ×2 (07:54→20:32)
[2020-01-03] MEDS: APIXABAN 5 MG TABLET PO SCH ×2 (07:55→20:33)
[2020-01-03] MEDS: INSULIN ASPART 100 UNITS/ML 3 ML PEN SC SCH ×4 (07:57→20:40)
[2020-01-03] MEDS: INSULIN GLARGINE SOLOSTAR 100 UNITS/ML 3 ML PEN SC SCH (07:58)
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
--- NOTE | 2020-01-03 10:11 | Pharmacy Report ---
Pharmacy Glycemic Short Note 2 - Date of Service January 03, 2020 - Glycemic Short BSG Results (Last 24 hours): 01/02/20 01/02/20 01/02/20 11:47 16:31 20:00 POC Glucose 186 H 96 70 01/02/20 01/02/20 01/03/20 21:03 21:04 07:40 POC Glucose 66 L* 77 106 H Outpatient Anti-diabetic Regimen: * Lantus 24 units SC HS * Humalog 6 units with breakfast/dinner; 4 units with lunch. Hold Humalog if BSG is less than 150 mg/dL. * A1c = 9.2 % 12/11/19 Assessment 01/02: * Bhavin received 33 units of insulin yesterday * 17 units of basal * 16 units of bolus * BSGs ranged from 77-201 mg/dL * Fasting BSG greatly improved today. Continue reduced dose of basal insulin. * Post prandial BSGs are acceptable but continue to trend downward throughout the day. HS BSG has been below goal the past two evenings. I will loosen Novolog CF and CR with both dinner and HS to limit the risk of evening hypoglycemia. I will also decrease the lower end of his goal range (from 140 to 120 mg/dL) so that the calculator is not subtracting insulin for fasting BSG less than 140 mg/dL. 12/31: * Patient received 37 units of insulin yesterday, 18 units of basal, 19 units prandial + correctional * Changes needed to insulin regimen: * AM Fasting BSG = 96 mg/dl. This is within goal range for patient based on inpatient targets and co-morbidities. Therefore Basal insulin will be the same today; will continue to monitor trend. This is closer to his home regimen. * Post-prandial BSGs improved yesterday. Patient refused evening BSG check so will not adjust. * Total daily dose = ? units. Varies depending on how often patient will take insulin. 12/28: * Patient received total of 36 units of insulin yesterday, 18 units of basal * Fasting BSG this AM 82- decreased lantus by 10% * BSG improved today at lunch 154, will continue current novolog parameters, continue to monitor for needed changes 12/27: * Patient received total of 49 units of insulin yesterday, of which 24 were basal insulin * Fasting BSG this AM 98 mg/dL - continue Lantus today, but scale back * BSGs yesterday afternoon down to 49 mg/dL - treated per hypglycemia protocol. Likely related to too much novolog given in afternoon. Insulin administration from lunch given later in afternoon and used to cover earlier BSG. Will follow up with nurse today to make sure point of care blood sugars are redrawn if insulin administration is >2 hours late PLAN FOR INPATIENT GLYCEMIC CONTROL: Basal insulin: * Lantus 17 units SQ QAM Bolus insulin: Novolog * Breakfast and lunch: * Goal Range: Low 120 mg/dL - High 180 mg/dL * Correction Factor: 30 mg/dL/unit * Nutritional / Prandial insulin per carb ratio of 1 unit per 9 grams CHO consumed * Dinner and HS: * Goal Range: Low 120 mg/dL - High 180 mg/dL * Correction Factor: 40 mg/dL/unit * Nutritional / Prandial insulin per carb ratio of 1 unit per 14 grams CHO consumed PLAN FOR DISCHARGE: * A1c 9.2% (12/11/19) * Despite elevated A1c, would recommend decreasing basal insulin based on inpatient needs: Lantus 18 units SQ once daily * Continue Humalog 6 units with breakfast/dinner; 4 units with lunch. Hold Humalog if BSG is less than 150 mg/dL.
[2020-01-03 10:57] LABS: Albumin Level 2.8 gm/dl (3.4-5.0); Calcium 9.1 mg/dl (8.5-10.1); Creatinine Clr Calc Pharmacy 75.1 ml/min; Est GFR (African American) 103.8; Est GFR (Non-African American) 89.5; Potassium 4.6 mmol/L (3.5-5.1)
[2020-01-03 11:00] LABS: Albumin Globulin Ratio 0.7 (0.9-2); Bilirubin,Total 0.4 mg/dl (0.2-1); Globulin 4.2 gm/dl (2.5-4.0); Hematocrit (blood only) 35.2 % (42-52); Hemoglobin 11.3 g/dL (14.0-18.0); Mean Corpuscular Hemoglobin 28.6 pg (25-34); Mean Corpuscular Hgb Conc 32.1 g/dL (32-36); Mean Corpuscular Volume 89.1 fL (80-100); Platelet Count 328 K/uL (130-400); RDW Coefficient of Variation 14.8 % (11.5-14.5); RDW Standard Deviation 48.4 fL (36.4-46.3); Red Blood Count 3.95 M/uL (4.7-6.1); White Blood Count 5.43 K/uL (4.8-10.8)
[2020-01-03 11:13] LABS: Appearance Urine Clear (Clear); Bilirubin Urine Negative (Negative); Blood Urine Negative (Negative); Color Urine Yellow; Glucose Urine UA Negative (Negative); Ketones Urine Negative (Negative); Leukocyte Esterase Urine Negative (Negative); Nitrite Urine Negative (Negative); Protein Urine Negative (Negative); Specific Gravity Urine 1.015 (1.000-1.030); Urobilinogen Urine Negative (Negative)
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
--- NOTE | 2020-01-03 11:59 | Communication Note ---
Date of Service: January 03, 2020 This is a 69-year-old male patient with history of diabetes and bipolar disorder who was admitted approximately a month ago with COVID 19. Early on in his admission he developed atrial fibrillation which was treated with Eliquis and metoprolol after which the patient spontaneously converted to normal sinus where he has remained. I think it is reasonable for the patient to be discharged on Eliquis and metoprolol. I do not believe any additional cardiac testing is indicated. In regard to follow-up, I note that he is still COVID positive on testing and if he is discharged he will need to be asymptomatic for 28 days and COVID negative by PCR before he comes into our clinic.
--- NOTE | 2020-01-03 12:21 | XRay Report ---
XR chest 1V portable CLINICAL HISTORY: COVID +, delirium COMPARISON STUDY: 12/12/2019 FINDINGS: No acute process. Diaphragms are smooth. Mild basilar chronic interstitial change. IMPRESSION: Chronic changes. No acute process. Old fracture midshaft left clavicle unchanged from th e prior exam. ACT 112: Negative or not required by law. The above report was generated using voice recognition software. It may contain grammatical, syntax or spelling errors. Electronically signed by: Itz Wilson M.D. 01/03/2020 12:20 PM
[2020-01-03] MEDS: SERTRALINE HCL 50 MG TABLET PO SCH (20:34)
[2020-01-03] MEDS: CARBOHYDRATES FOR HYPOGLYCEMIA PO PRN (20:38)
[2020-01-03] MEDS: DEXTROSE 50% 50 ML SYRINGE IV PRN (21:04)
[2020-01-04] MEDS: LOSARTAN POTASSIUM 25 MG TAB PO SCH (08:08)
[2020-01-04] MEDS: APIXABAN 5 MG TABLET PO SCH ×2 (08:08→20:45)
[2020-01-04] MEDS: CHOLECALCIFEROL 1,000 UNITS 25 MCG TAB PO SCH (08:08)
[2020-01-04] MEDS: SENNA 8.6 MG TAB PO SCH ×2 (08:08→20:45)
[2020-01-04] MEDS: QUETIAPINE FUMARATE 25 MG TABLET PO SCH ×3 (08:08→20:45)
[2020-01-04] MEDS: METOPROLOL TARTRATE 25 MG TAB PO SCH ×2 (08:09→20:45)
[2020-01-04] MEDS: INSULIN ASPART 100 UNITS/ML 3 ML PEN SC SCH ×2 (08:11→11:47)
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
[2020-01-04] MEDS ORDERED: INSULIN GLARGINE SOLOSTAR 100 UNITS/ML 3 ML PEN SC SCH (09:00)
--- NOTE | 2020-01-04 14:11 | Pharmacy Report ---
Pharmacy Glycemic Short Note 2 - Date of Service January 04, 2020 - Glycemic Short BSG Results (Last 24 hours): 01/03/20 01/03/20 01/03/20 14:21 16:47 20:36 POC Glucose 155 H 120 H 67 L* 01/03/20 01/03/20 01/04/20 20:52 21:31 07:39 POC Glucose 66 L* 159 H 91 01/04/20 11:32 POC Glucose 295 H Outpatient Anti-diabetic Regimen: * Lantus 24 units SC HS * Humalog 6 units with breakfast/dinner; 4 units with lunch. Hold Humalog if BSG is less than 150 mg/dL. * A1c = 9.2 % 12/11/19 Nguyễn Delcid received 34 units of insulin yesterday: * 17 units of basal * 17 units of bolus BSGs were well controlled with the exception of asymptomatic hypoglycemia at bedtime (BSG = 67 mg/dL) despite changes made to regimen yesterday in attempt to avoid hypoglycemia. I will continue Novolog with meals and discontinue order for bedtime. I will further loosen CF and CR with dinner. Fasting trending downward. I will slightly decrease Lantus dose. PLAN FOR INPATIENT GLYCEMIC CONTROL: Basal insulin: * Lantus 16 units SQ QAM Bolus insulin: Novolog * Breakfast and lunch: * Goal Range: Low 120 mg/dL - High 180 mg/dL * Correction Factor: 30 mg/dL/unit * Nutritional / Prandial insulin per carb ratio of 1 unit per 9 grams CHO consumed * Dinner: * Goal Range: Low 120 mg/dL - High 180 mg/dL * Correction Factor: 40 mg/dL/unit * Nutritional / Prandial insulin per carb ratio of 1 unit per 20 grams CHO consumed PLAN FOR DISCHARGE: * A1c 9.2% (12/11/19) * Despite elevated A1c, would recommend decreasing basal insulin based on inpatient needs: Lantus 18 units SQ once daily * Continue Humalog 6 units with breakfast/dinner; 4 units with lunch. Hold Humalog if BSG is less than 150 mg/dL.
[2020-01-04] MEDS ORDERED: INSULIN ASPART 100 UNITS/ML 3 ML PEN SC SCH (16:30)
[2020-01-04] MEDS: SERTRALINE HCL 50 MG TABLET PO SCH (20:45)
[2020-01-05] MEDS: METOPROLOL TARTRATE 25 MG TAB PO SCH (07:23)
[2020-01-05] MEDS: CHOLECALCIFEROL 1,000 UNITS 25 MCG TAB PO SCH (07:24)
[2020-01-05] MEDS: QUETIAPINE FUMARATE 25 MG TABLET PO SCH ×2 (07:25→12:55)
[2020-01-05] MEDS: SENNA 8.6 MG TAB PO SCH (07:26)
[2020-01-05] MEDS: APIXABAN 5 MG TABLET PO SCH (07:27)
[2020-01-05] MEDS: LOSARTAN POTASSIUM 25 MG TAB PO SCH (08:49)
[2020-01-05] MEDS: INSULIN ASPART 100 UNITS/ML 3 ML PEN SC SCH ×2 (10:16→12:31)
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
[2020-01-06] MEDS ORDERED: INSULIN GLARGINE SOLOSTAR 100 UNITS/ML 3 ML PEN SC SCH (09:00)
== END 2020-01-05 13:34 | disposition home or self-care (01) | DRG 871 ==
LOC: ED 09:14 → SUATTDRO 12:52 → 2E 12:52

== ENCOUNTER 2020-03-21 14:23 | Inpatient (IN) ==
[~2020-03-21 14:23] MED LIST: KETAMINE HCL INJ 50 MG/ML 10 ML VIAL IV ONE; ROCURONIUM BROMIDE 10 MG/ML 10 ML VIAL IV ONE
[2020-03-21] MEDS ORDERED: cefTRIAXone SODIUM 1,000 MG/50 ML BAG IV STA (14:52)
[2020-03-21] MEDS ORDERED: NORMOSOL-R 1,000 ML IV ONE (14:59)
[2020-03-21] MEDS ORDERED: RAPID SEQUENCE INDUCTION BAG ONE (15:17)
[2020-03-21 15:31] LABS: Basophils # (auto) 0.01 K/uL (0-0.2); Eosinophils # (auto) 0.03 K/uL (0-0.5); Eosinophils % (auto) 0.1 %; Hemoglobin 10.9 g/dL (14.0-18.0); Immature Granulocytes # (auto) 0.25 K/uL (0.00-0.02); Immature Granulocytes % (auto) 1.1 %; Lymphocytes # (auto) 2.44 K/uL (1.2-3.4); Mean Corpuscular Hemoglobin 29.3 pg (25-34); Mean Corpuscular Hgb Conc 29.5 g/dL (32-36); Mean Corpuscular Volume 99.5 fL (80-100); Mean Platelet Volume 11.1 fL (7.4-10.4); Monocytes # (auto) 1.75 K/uL (0.11-0.59); Monocytes % (auto) 7.9 %; Neutrophils # (auto) 17.68 K/uL (1.4-6.5); Neutrophils % (auto) 79.9 %; Platelet Count 338 K/uL (130-400); RDW Coefficient of Variation 15.7 % (11.5-14.5); Red Blood Count 3.72 M/uL (4.7-6.1); White Blood Count 22.16 K/uL (4.8-10.8)
[2020-03-21 15:38] LABS: Base Excess VBG -23.6 mEq/L; Oxygen Saturation VBG 68.2 %
[2020-03-21 15:43] LABS: Partial Thromboplastin Ratio 0.9; Partial Thromboplastin Time 25.2 Seconds (21.0-31.0); Prothrombin Time 10.3 Seconds (9.0-12.0)
[2020-03-21] MEDS ORDERED: ROCURONIUM BROMIDE 10 MG/ML 5 ML VIAL IV ONE (15:45)
[2020-03-21] MEDS ORDERED: KETAMINE HCL INJ 50 MG/ML 10 ML VIAL IV ONE (15:45)
[2020-03-21 15:52] LABS: Alanine Aminotransferase 25 U/L (12-78); Albumin Globulin Ratio 0.9 (0.9-2); Albumin Level 3.6 gm/dl (3.4-5.0); Alkaline Phosphatase 112 U/L (45-117); Aspartate Aminotransferase 16 U/L (15-37); BUN Creatinine Ratio 19.2 (10-20); Bilirubin,Total 0.6 mg/dl (0.2-1); Blood Urea Nitrogen 61 mg/dl (7-18); Calcium 9.7 mg/dl (8.5-10.1); Carbon Dioxide 5 mmol/L (21-32); Chloride 95 mmol/L (98-107); Est GFR (African American) 22.1; Est GFR (Non-African American) 19.1; Glucose 961 mg/dl (70-99); Magnesium 2.9 mg/dl (1.8-2.4); Potassium 7.5 mmol/L (3.5-5.1); Sodium 131 mmol/L (136-145); Total Protein 7.6 gm/dl (6.4-8.2)
[2020-03-21] MEDS ORDERED: CALCIUM GLUCONATE 10% 1,000 MG in SODIUM CHLORIDE 0.9% 50 ML IV STA (15:53)
[2020-03-21] MEDS ORDERED: SODIUM BICARB 8.4% INJ 50 MEQ/50 ML SYR IV STA (15:53)
--- NOTE | 2020-03-21 15:57 | XRay Report ---
XR chest 1V portable HISTORY: 69 years-old Male SEPSIS acute sepsis COMPARISON: Chest radiograph 01/03/2020 TECHNIQUE: Portable supine AP view of the chest FINDINGS: Endotracheal tube terminates 3.1 cm superior to the july. Cardiomediastinal and hilar silhouettes a re within normal limits. Mild chronic interstitial coarsening. No pneumothorax, pleural effusion or o vert pulmonary edema. Degenerative changes of the shoulders and spine. Mild gaseous distention of the stomach. IMPRESSION: 1. Endotracheal tube terminates 3.1 cm superior to the july. 2. The lungs appear generally clear. ACT 112: Negative or not required by law. The above report was generated using voice recognition software. It may contain grammatical, syntax o r spelling errors. Electronically signed by: Cruz Romero M.D. 03/21/2020 3:55 PM
[2020-03-21] MEDS ORDERED: NovoLIN-R BOLUS FROM BAG IV ONE (16:00)
[2020-03-21] MEDS ORDERED: MIDAZOLAM BOLUS FROM BAG IV PRN (16:10)
[2020-03-21] MEDS ORDERED: STAT IV Infusion **Titration per Protocol STA (16:10)
[2020-03-21] MEDS ORDERED: MIDAZOLAM HCL 125 MG/250 ML BAG IV PRN (16:10)
[2020-03-21] MEDS ORDERED: MIDAZOLAM HCL 1 MG/ML 2ML VIAL IV PRN (16:10)
[2020-03-21 16:26] LABS: Beta-Hydroxybutyrate 120.45 mg/dl (0.2-2.81)
--- NOTE | 2020-03-21 16:32 | CT Scan Report ---
CT head/brain wo con CLINICAL HISTORY: 69 years-old Male with ams. Acutely altered mental status TECHNIQUE: Multiple axial CT images of the head were obtained without contrast. A dose lowering tech nique was utilized adhering to the principles of ALARA. CT DOSE: 1057.49 mGy.cm COMPARISON: None. FINDINGS: No acute intracranial hemorrhage, midline shift, intracranial mass, hydrocephalus, territorial ischem ia or abnormal extra-axial collection. Age-related involutional changes with ex vacuo ventriculomegal y. Patchy and confluent white matter hypodensities are suggestive of advanced chronic microvascular i schemic disease. Focal area of encephalomalacia involving the left frontal lobe is suggestive of milton te infarct. The calvarium is intact. The paranasal sinuses, mastoid air cells, and middle ear cavities are clear . IMPRESSION: No acute intracranial abnormality. ACT 112: Negative or not required by law. The above report was generated using voice recognition software. It may contain grammatical, syntax o r spelling errors. Electronically signed by: Cruz Romero M.D. 03/21/2020 4:30 PM
[2020-03-21] MEDS: INSULIN REGULAR 250 UNITS in SODIUM CHLORIDE 0.9% 247.5 ML IV SCH (16:37)
--- NOTE | 2020-03-21 16:58 | CT Scan Report ---
ABDOMEN AND PELVIS CT WITHOUT CONTRAST HISTORY: Acutely altered mental status. Diabetic ketoacidosis with vomiting. ams TECHNIQUE: Multiaxial CT images of the abdomen and pelvis were performed without contrast. A dose lo wering technique was utilized adhering to the principles of ALARA. COMPARISON STUDY: Chest radiograph of same day. FINDINGS: Limited exam secondary to upper extremity positioning. Trace pleural effusions with depende nt bibasilar opacities suggestive of probable atelectasis. Motion degraded exam. Study is limited wit hout the use of IV contrast. No pneumatosis or pneumoperitoneum. The imaged inferior cardiac chambers are unremarkable. Coronary artery calcifications. Trace pericardial effusion. Unremarkable spleen. M oderate generalized pancreatic atrophy. Indeterminate soft tissue attenuating 1.2 cm right adrenal gl and nodule normal-appearing left adrenal gland. Hepatic steatosis. 4 mm calcification noted within th e rose hepatis suggestive of a vascular calcification. Contracted gallbladder. Bilateral renal vascular calcifications with mild perinephric stranding. No obstructive uropathy. Unr emarkable urinary bladder. Prostamegaly. Calcifications of the vas deferens. Calcified plaque the abd ominal aorta. No aneurysm. Retroaortic left renal vein. There is no adenopathy. Mild distal esophageal wall thickening. No bowel obstruction or bowel wall thickening. Mild fecal ret ention of the mid sigmoid. The majority of the colon is decompressed and partially fluid-filled. Izabella nflamed appendix. No ascites. Mild generalized body wall edema. Gynecomastia. Remote lateral inferior pubic rami fractures. Bilateral SI joint bolts. Healed remote fracture of the right iliac bone. Grea ter than 50% superior endplate compression deformity at L4 without paravertebral edema or significant retropulsion. T11 vertebral body hemangioma. IMPRESSION: 1. No bowel obstruction or bowel wall thickening. 2. Trace pleural effusions with bibasilar opacities suggestive of atelectasis. 3. Hepatic steatosis. 4. Technically age-indeterminate L4 compression deformity without paravertebral edema, likely chronic . 5. Additional findings as above. ACT 112: Negative or not required by law. The above report was generated using voice recognition software. It may contain grammatical, syntax o r spelling errors. Electronically signed by: Cruz Romero M.D. 03/21/2020 4:56 PM
[2020-03-21] MEDS ORDERED: DEXTROSE 50% 50 ML SYRINGE IV PRN (17:00)
[2020-03-21] MEDS ORDERED: GLUCOSE 40% GEL 15 GM TUBE PO PRN (17:00)
[2020-03-21] MEDS ORDERED: GLUCOSE 10 TABS/TUBE PO PRN (17:00)
[2020-03-21] MEDS ORDERED: GLUCAGON FOR INJ 1 MG VIAL IM PRN (17:00)
[2020-03-21 17:13] LABS: iSTAT Arterial Blood Gas HCO3 7 meg/L (19-24); iSTAT Arterial Blood Gas pCO2 25 mmHg (35-46); iSTAT Arterial Blood Gas pH 7.02 (7.35-7.45); iSTAT Arterial Blood Gas pO2 122 mmHg (80-95); iSTAT Carbon Dioxide 7 mmol/L (24-31)
[2020-03-21 17:40] LABS: BUN Creatinine Ratio 21.3 (10-20); Blood Urea Nitrogen 57 mg/dl (7-18); Calcium 8.6 mg/dl (8.5-10.1); Carbon Dioxide 7 mmol/L (21-32); Chloride 103 mmol/L (98-107); Est GFR (Non-African American) 23.3; Glucose 837 mg/dl (70-99); Sodium 137 mmol/L (136-145)
[2020-03-21 17:46] LABS: Appearance Urine Clear (Clear); Bacteria Urine Automated Negative (Negative); Bilirubin Urine Negative (Negative); Blood Urine Trace (Negative); Color Urine Yellow; Glucose Urine UA 3+ (Negative); Ketones Urine 3+ (Negative); Leukocyte Esterase Urine Negative (Negative); Nitrite Urine Negative (Negative); Protein Urine 1+ (Negative); RBC Urine Automated 0-4 /hpf (0-4); Specific Gravity Urine 1.026 (1.000-1.030); Urobilinogen Urine Negative (Negative)
[2020-03-21 17:50] LABS: Troponin I 0.066 ng/ml (0-0.045)
--- NOTE | 2020-03-21 17:59 | History & Physical Report ---
Date of Service March 21, 2020 Assessment & Plan (1) Unresponsive: (2) Metabolic encephalopathy: (3) DKA (diabetic ketoacidoses): (4) Metabolic acidosis: Hx DM I Pt is 69 y/o M with PMH insulin-dependent DM I, HTN, bipolar, dyslipidemia presented to ER for unresponsiveness. History obtained from ER physician as patient is currently sedated and intubated. It is reported that patient had been refusing taking his insulin. Upon arrival to ER patient was tachypneic and unresponsive. He was intubated. Patient with history COVID-19 requiring hospitalization 11/2019 and during that hospitalization developed paroxysmal A. fib and was started on metoprolol tartrate and Eliquis. Today in ER patient was found to have WBC: 22, bicarb 7, anion gap 27, BUN 61, Cr: 3, glucose: 961, beta hydroxybutyric acid: 111, K: 7.5, VBG: pH: 7.0, PCO2: 26. ABG is pending. Lactate: 6.8, procalcitonin 1.3, troponin: 0.06 In ER was given 1 mL Normosol, sodium bicarb, calcium gluconate, Rocephin, IV insulin Pt Intubated Paid Search Analyst was made aware. Patient to ICU for further evaluation and keny grant (5) Acute hyperkalemia: Initial K: 7.5 down to 6 (6) CHIVO (acute kidney injury): BUN 61, Cr: 3. Repeat Cr: 2.69 Suspect secondary to DKA Monitor renal functions, avoid nephrotoxic agents (7) Paroxysmal atrial fibrillation with RVR: H/O PAF during hospitalization in 11/2019 On Eliquis, metoprolol tartrate at home (8) Hypertension: On lisinopril at home (9) Bipolar 1 disorder: On quetiapine, sertraline at home Admit ICU Full Code as per prior records Pt was seen and care coordinated with Dr Kim. See addendum History of Present Illness Chief Complaint: Unresponsive Primary Care Provider: FREEDOM BACA Pt is 69 y/o M with PMH insulin-dependent DM I, HTN, bipolar, dyslipidemia presented to ER for unresponsiveness. History obtained from ER physician as patient is currently sedated and intubated. It is reported that patient had been refusing taking his insulin. Upon arrival to ER patient was tachypneic and unresponsive. He was intubated. Patient with history COVID-19 requiring hospitalization 11/2019 and during that hospitalization developed paroxysmal A. fib and was started on metoprolol tartrate and Eliquis. Today in ER patient was found to have WBC: 22, bicarb 7, anion gap 27, BUN 61, Cr: 3, glucose: 961, beta hydroxybutyric acid: 111, K: 7.5, VBG: pH: 7.0, PCO2: 26. ABG is pending. Lactate: 6.8, procalcitonin 1.3, troponin: 0.06 In ER was given 1 mL Normosol, sodium bicarb, calcium gluconate, Rocephin, IV insulin Paid Search Analyst was made aware. Patient to ICU for further evaluation and management Allergies Allergy/AdvReac Type Severity Reaction Status Date / Time Unable to Assess Allergy Unverified 12/10/19 11:37 Home Medications Home Medications Medication Instructions Recorded Confirmed Type cholecalciferol (vitamin D3) 1,000 unit PO DAILY 12/10/19 03/21/20 History apixaban [Eliquis] 5 mg PO BID #60 tab 01/02/20 03/21/20 Rx losartan 25 mg PO QAM #30 tab 01/02/20 03/21/20 Rx metoprolol tartrate 25 mg PO BID #60 tab 01/02/20 03/21/20 Rx quetiapine 12.5 mg PO BID #20 tab 01/02/20 03/21/20 Rx quetiapine 25 mg PO HS #20 tab 01/02/20 03/21/20 Rx sertraline 50 mg PO HS #30 tab 01/02/20 03/21/20 Rx atorvastatin 10 mg PO DAILY 03/21/20 03/21/20 History insulin aspart U-100 [Novolog 10 unit SUBCUT BID 03/21/20 03/21/20 History U-100 Insulin aspart] insulin glargine [Lantus U-100 18 units SQ QPM 03/21/20 03/21/20 History Insulin] Past Med/Surg History Medical History Bipolar 1 disorder Cognitive disorder Depression Diabetes mellitus type 1 with complications HTN (hypertension) Hypertension Status post amputation of toe of left foot Surgical History Status post below-knee amputation of left lower extremity Family History Other Family history unobtainable due to patient's condition Social History Smoking Status: Unknown if ever smoked Preferred Language: Arabic Communication Ability: unknown Chemical Unit Operator Required: No Beliefs That Will Affect Care: None Current Living Situation: Alf Current Living Situation Comment: [facility] Feels Safe at Home: Yes Review of Systems Review of Systems: Unobtainable due to endotracheal tube Physical Exam Physical Exam: General: +sedated and intubated, appears WDWN Head: normocephalic, atraumatic Eyes: pupils dilated, not reactive, conjunctiva non-injected, anicteric ENT: normal inspection external ears, nose Neck: trachea midline Lungs: +intubated, lungs sounds present, clear CV: RRR, no murmur, no pretibial edema Abd: normal BS, soft, non-tender Ext: no cyanosis, BKA left Neuro: Sedated and intubated Skin: warm, dry Results & Data Results & Data ([facility]) Vital Signs (Past 12 Hours) Vital Signs Temp Pulse Resp BP Pulse Ox 03/21/20 17:35 89 116/51 L 100 03/21/20 17:30 89 116/47 L 100 03/21/20 17:25 89 115/50 L 100 03/21/20 17:20 90 119/39 L 100 03/21/20 17:15 89 101/40 L 100 03/21/20 17:10 91 H 114/40 L 100 03/21/20 17:05 91 H 99/43 L 100 03/21/20 17:00 91 H 113/36 L 100 03/21/20 16:55 91 H 112/36 L 100 03/21/20 16:53 26 H 100 03/21/20 16:50 93 H 103/47 L 100 03/21/20 16:45 92 H 106/43 L 100 03/21/20 16:40 93 H 119/40 L 100 03/21/20 16:35 93 H 26 H 108/43 L 100 03/21/20 16:33 95 H 113/42 L 100 03/21/20 16:18 100 H 24 100 03/21/20 16:00 92 H 100/52 L 100 03/21/20 15:55 97 H 109/42 L 100 03/21/20 15:50 94 H 98/36 L 100 03/21/20 15:45 91 H 89/32 L 100 03/21/20 15:42 89 80/25 L 100 03/21/20 15:41 90 75/42 L 100 03/21/20 15:35 92 H 100/50 L 100 03/21/20 15:33 92 H 35 H 91/54 L 100 03/21/20 15:15 91 H 29 H 97/46 L 100 03/21/20 15:01 90 33 H 110/43 L 100 03/21/20 14:45 90 20 94/58 L 100 03/21/20 14:39 37.4 C 88 32 H 87/62 L 100 03/21/20 14:31 92 H 33 H 87/62 L 100 03/21/20 14:28 93 H 35 H 97/40 L 100 Laboratory Results Short CBC 03/21/20 Range/Units 15:12 WBC 22.16 H (4.8-10.8) K/uL Hgb 10.9 L (14.0-18.0) g/dL Hct 37.0 L (42-52) % Plt Count 338 (130-400) K/uL BMP 03/21/20 03/21/20 15:12 17:00 Sodium 131 L 137 Potassium 7.5 H* Chloride 95 L 103 Carbon Dioxide 5 L* 7 L* BUN 61 H 57 H Creatinine 3.17 H 2.69 H D Glucose 961 H* 837 H* Calcium 9.7 8.6 Cardiac Enzymes 03/21/20 Range/Units 15:12 Troponin I 0.066 H* (0-0.045) ng/ml Liver Function 03/21/20 Range/Units 15:12 Total Bilirubin 0.6 (0.2-1) mg/dl AST 16 (15-37) U/L ALT 25 (12-78) U/L Alkaline Phosphatase 112 (45-117) U/L Albumin 3.6 (3.4-5.0) gm/dl Urine 03/21/20 Range/Units 16:51 Urine Color Yellow Urine Appearance Clear (Clear) Urine pH 5.0 (4.5-7.5) Ur Specific [place] 1.026 (1.000-1.030) Urine Protein 1+ H (Negative) Urine Glucose (UA) 3+ H (Negative) Diagnostic Findings CT HEAD: IMPRESSION: No acute intracranial abnormality. CT ABD/PELVIS: IMPRESSION: 1. No bowel obstruction or bowel wall thickening. 2. Trace pleural effusions with bibasilar opacities suggestive of atelectasis. 3. Hepatic steatosis. 4. Technically age-indeterminate L4 compression deformity without paravertebral edema, likely chronic. 5. Additional findings as above. CXR: IMPRESSION: 1. Endotracheal tube terminates 3.1 cm superior to the july. 2. The lungs appear generally clear. Supervising Physician Co-Signing Physician Notes I, Dr. Zain Kim, have seen and examined the patient Bhavin Jaffe with physician corporate legal assistant On physical Exam General: intubated with dilated and generally unreactive pupils to light Lungs: on mechanical ventilation Heart: regular rate Abdomen: soft Extremities: left lower extremity amputee -patient with unresponsiveness and was intubated on presentation to the ED. likely the acute metabolic encephalopathy from diabetic ketoacidosis from not taking insulin as outpatient, history of Bipolar disorder, and leading to acute respiratory failure -his electrolyte abnormalities include acute kidney injury and acute kidney injury and metabolic acidosis. his prognosis is guarded and patient is admitted from ED to the ICU. he has been receiving fluids including bicarbonate IV to help fix the acidosis. mechanical ventilation management as per ICU physician -agree with other assessment and plans as documented by physician corporate legal assistant My colleague hospitalist will be following the patient starting on 03/22/2020, appreciate the assistance of the ICU physician and ICU team (1) DKA (diabetic ketoacidoses) Diabetes mellitus complication detail: with coma Diabetes mellitus type: type 1 Qualified Code(s): E10.11 - Type 1 diabetes mellitus with ketoacidosis with coma
[2020-03-21 18:05] LABS: Beta-Hydroxybutyrate 111.76 mg/dl (0.2-2.81)
--- NOTE | 2020-03-21 18:09 | Emergency Department Note ---
Impression & Plan DKA (diabetic ketoacidoses), Metabolic acidosis, Acute hyperkalemia, Leukocytosis, Lactic acid acidosis ED Provider Note NAME: JB MELTON AGE: 69 SEX: M : 1950 ARRIVES VIA: Ambulance INFORMANT: Patient ED PROVIDER(S): Thomas Moses DO CHIEF COMPLAINT: Altered mental status HPI: Patient is a 69-year-old male who was brought in from [place] for altered mental status. He has been refusing his insulin all week. They did give him 5 units this morning. Since then he became more confused and consequently they brought him in here as his sugars have been reading critically high. History is limited secondary to mentation as patient is unresponsive. ROS: History is limited secondary to mentation/mental status PAST MEDICAL HISTORY:See Below PAST SURGICAL HISTORY:See Below FAMILY HISTORY:See Below SOCIAL HISTORY:See Below HOME MEDICATIONS:See Below ALLERGIES:See Below VITALS:See Below PHYSICAL EXAMINATION: GENERAL: Sitting up in bed with dried vomit on his shirt, not responding to commands with a respiratory rate of 36 EYE EXAM: normal conjunctiva. PERRL and EOM's grossly intact. OROPHARYNX: mucous membranes are dry NECK: supple, no nuchal rigidity, no adenopathy, non-tender LUNGS: Clear to auscultation. Normal chest wall mechanics HEART: Tachycardic, S1 normal and S2 normal ABDOMEN: abdomen soft, non-tender, normo-active bowel sounds, no masses, no rebound or guarding. BACK: Back is symmetrical on inspection and there is no deformity, no midline tenderness, no CVA tenderness. SKIN: no rashes and no bruising UPPER EXTREMITIES: upper extremities are grossly normal. LOWER EXTREMITIES: Left BKA NEURO EXAM: Laying in bed, opens eyes to his sternal rub, withdraws extremities to pain, nonverbal MEDICAL DECISION MAKING: Patient is a 69-year-old male who was brought in from [facility]. With a sternal rub he did open his eyes but nonverbal and significantly tachypneic. Respiratory rate was in the 30s. Blood sugar was undetectable. Sepsis alert was called. Blood work was obtained. VBG was obtained. pH was 7. He was taken into the resuscitation bay. He was intubated abated with ketamine and rocuronium. He was placed on a Versed drip as blood pressures were soft with initial pressures in the 80s which trended up to the low 100s with IV fluid resuscitation. His respiratory rate was titrated up on the vent to 26. Labs were remarkable for white count 22,000. Mild anemia 10. INR was unremarkable. Initial potassium was 7.5. This was treated with IV calcium gluconate and he was given 1 amp of bicarb with the potassium of 7.5 as we are waiting for the insulin to come up. He eventually received bolus of insulin 6 units and placed on a drip at 6 units/h. Creatinine was elevated at 3 and bicarb of 6. BSG was initially in the 800s. Lactate was elevated at 4. Troponin was detectable at 0.066. EKG shows diffuse ST depressions which I do favor is likely related to the metabolic process. He was covered with IV antibiotics. He was given 1 L of IV fluids prior to arrival. He received 2 L of normal saline in the ER as well as [address] head and abdomen pelvis were unremarkable. Chest x-ray shows ET tube in good position. Discussed with the deep fat cook fry and patient was admitted to the hospitalist. pH prior to admission was 7.02. CO2 was 25. O2 was 122. Bicarb was 6. Discussed with halfway prior to intubation that he was a full code and there was no DNR/DNI on file. Triage Nursing notes reviewed. Prior medical records reviewed Vital Signs: reviewed and remarkable for hypotensive, tachycardic Differential diagnosis: Differential diagnosis includes etiologies such as sepsis, UTI, pneumonia, metabolic, electrolyte abnormalities, cardiac sources, intracerebral event, toxicologic, neurological, as well as others were entertained. ER treatment provided: See below Diagnostics interpreted by me: ECG: Sinus rhythm rate of 92 Normal axis TWI in the inferior leads ST depressions in the inferior leads anterior and lateral First-degree AV block Cardiac Monitoring: An order was placed for continuous cardiac monitoring. The monitor shows a rate of 95 with sinus rhythm. Laboratory studies: As stated above and show below. Imaging studies: CT head as well as abdomen pelvis was unremarkable Portable AP upright 1 view of the chest shows no focal infiltrate and good ET tube positioning. Consultation(s): D/w with Zain Kim from the hospitalist for admission. D/w Master Donald upon the patient's arrival as he was in the ER and notified him that this gentleman would be intubated and going to the ICU in A ED COURSE: Procedures: EM PROCEDURE NOTE - Endotracheal Intubation PROCEDURE NOTE: Informed consent was not obtained by the patient. Verify Correct Patient: yes Procedure: Endotracheal intubation Indication: not protecting airway with vomit and unresponsive The procedure was done emergently. Description of the Procedure: The patient was seen and properly identified. The patient was pre-oxygenated and intubated after rapid sequence induction with meds: Rocuronium and ketamine. Intubation was performed using a glide scope and a 7.5 cuffed endotracheal tube. The tube was visualized going through the cords and secured with the 24cm zeferino at the lips. The patient had good bilateral breath sounds in the axillae with good chest rise. Proper ET tube placement was confirmed by end tidal CO2 detector. The patient tolerated the procedure well. Critical Care: I have personally spent 80 minutes of critical care time in the direct management of this patient. This includes bedside care, interpretation of diagnostic studies, and testing, discussion with consultants, patient, and family members, and other required patient management activities. This 80 minutes is in excess of all separately billable procedures. Past Med/Surg History Medical History (Updated 03/21/20 @ 18:18 by Thomas Moses DO) Bipolar 1 disorder Cognitive disorder Depression Diabetes mellitus type 1 with complications HTN (hypertension) Hypertension Status post amputation of toe of left foot Surgical History Status post below-knee amputation of left lower extremity Family History Other Family history unobtainable due to patient's condition Social History Smoking Status: Unknown if ever smoked Second Hand Exposure: No; Hx Alcohol Use: No Preferred Language: Portuguese Communication Ability: Effective Manager Code Required: No Beliefs That Will Affect Care: None Current Living Situation: Personal Care Facility Current Living Situation Comment: [facility] Feels Safe at Home: Yes Allergies Allergies Allergy/AdvReac Type Severity Reaction Status Date / Time Unable to Assess Allergy Unverified 12/10/19 11:37 Home Meds Home Medications Medication Instructions Recorded Confirmed cholecalciferol (vitamin D3) 1,000 unit PO DAILY 12/10/19 03/21/20 atorvastatin 10 mg PO DAILY 03/21/20 03/21/20 insulin aspart U-100 [Novolog 10 unit SUBCUT BID 03/21/20 03/21/20 U-100 Insulin aspart] insulin glargine [Lantus U-100 18 units SQ QPM 03/21/20 03/21/20 Insulin] Previous Rx's Medication Instructions Recorded apixaban [Eliquis] 5 mg PO BID #60 tab 01/02/20 losartan 25 mg PO QAM #30 tab 01/02/20 metoprolol tartrate 25 mg PO BID #60 tab 01/02/20 quetiapine 12.5 mg PO BID #20 tab 01/02/20 quetiapine 25 mg PO HS #20 tab 01/02/20 sertraline 50 mg PO HS #30 tab 01/02/20 Results & Data (ED) Vital Signs Vital Signs - 24 hr 03/21/20 14:28 03/21/20 14:31 03/21/20 14:39 Temperature 37.4 C Temperature Source Oral Pulse Rate 93 H 92 H 88 Pulse Rate from SpO2 Sensor 95 H 93 H Pulse Rhythm Regular Pulse Strength Normal Respiratory Rate 35 H 33 H 32 H Respiratory Effort / Characteristics Non-Labored Spontaneous Respiratory Depth Normal Respiratory Pattern Regular Blood Pressure 97/40 L 87/62 L 87/62 L Blood Pressure Mean 59 82 70 Pulse Oximetry 100 100 100 Oxygen Delivery Method Room Air Fraction of Inspired Oxygen Sepsis New/Unexplained Change in Mental Status N/A Sepsis Action Taken by Nursing No Action Required End-Tidal CO2 03/21/20 14:45 03/21/20 15:01 03/21/20 15:15 Temperature Temperature Source Pulse Rate 90 90 91 H Pulse Rate from SpO2 Sensor 90 91 H 91 H Pulse Rhythm Pulse Strength Respiratory Rate 20 33 H 29 H Respiratory Effort / Characteristics Respiratory Depth Respiratory Pattern Blood Pressure 94/58 L 110/43 L 97/46 L Blood Pressure Mean 70 48 55 Pulse Oximetry 100 100 100 Oxygen Delivery Method Fraction of Inspired Oxygen Sepsis New/Unexplained Change in Mental Status Sepsis Action Taken by Nursing End-Tidal CO2 03/21/20 15:33 03/21/20 15:35 03/21/20 15:41 Temperature Temperature Source Pulse Rate 92 H 92 H 90 Pulse Rate from SpO2 Sensor 92 H 92 H 91 H Pulse Rhythm Pulse Strength Respiratory Rate 35 H Respiratory Effort / Characteristics Respiratory Depth Respiratory Pattern Blood Pressure 91/54 L 100/50 L 75/42 L Blood Pressure Mean 58 64 57 Pulse Oximetry 100 100 100 Oxygen Delivery Method Room Air Mechanical Vent Fraction of Inspired Oxygen Sepsis New/Unexplained Change in Mental Status Sepsis Action Taken by Nursing End-Tidal CO2 15 03/21/20 15:42 03/21/20 15:45 03/21/20 15:50 Temperature Temperature Source Pulse Rate 89 91 H 94 H Pulse Rate from SpO2 Sensor 89 92 H 95 H Pulse Rhythm Pulse Strength Respiratory Rate Respiratory Effort / Characteristics Respiratory Depth Respiratory Pattern Blood Pressure 80/25 L 89/32 L 98/36 L Blood Pressure Mean 64 53 67 Pulse Oximetry 100 100 100 Oxygen Delivery Method Mechanical Vent Mechanical Vent Mechanical Vent Fraction of Inspired Oxygen Sepsis New/Unexplained Change in Mental Status Sepsis Action Taken by Nursing End-Tidal CO2 16 17 18 03/21/20 15:55 03/21/20 16:00 03/21/20 16:18 Temperature Temperature Source Pulse Rate 97 H 92 H 100 H Pulse Rate from SpO2 Sensor 97 H 93 H Pulse Rhythm Pulse Strength Respiratory Rate 24 Respiratory Effort / Characteristics Respiratory Depth Respiratory Pattern Blood Pressure 109/42 L 100/52 L Blood Pressure Mean 73 73 Pulse Oximetry 100 100 100 Oxygen Delivery Method Mechanical Vent Mechanical Vent Fraction of Inspired Oxygen 30 Sepsis New/Unexplained Change in Mental Status Sepsis Action Taken by Nursing End-Tidal CO2 19 29 25 03/21/20 16:33 03/21/20 16:35 03/21/20 16:40 Temperature Temperature Source Pulse Rate 95 H 93 H 93 H Pulse Rate from SpO2 Sensor 95 H 94 H 92 H Pulse Rhythm Pulse Strength Respiratory Rate 26 H Respiratory Effort / Characteristics Respiratory Depth Respiratory Pattern Blood Pressure 113/42 L 108/43 L 119/40 L Blood Pressure Mean 56 80 58 Pulse Oximetry 100 100 100 Oxygen Delivery Method Mechanical Vent Mechanical Vent Mechanical Vent Fraction of Inspired Oxygen Sepsis New/Unexplained Change in Mental Status Sepsis Action Taken by Nursing End-Tidal CO2 18 22 22 03/21/20 16:45 Temperature Temperature Source Pulse Rate 92 H Pulse Rate from SpO2 Sensor 92 H Pulse Rhythm Pulse Strength Respiratory Rate Respiratory Effort / Characteristics Respiratory Depth Respiratory Pattern Blood Pressure 106/43 L Blood Pressure Mean 77 Pulse Oximetry 100 Oxygen Delivery Method Mechanical Vent Fraction of Inspired Oxygen Sepsis New/Unexplained Change in Mental Status Sepsis Action Taken by Nursing End-Tidal CO2 21 Laboratory Data Result diagrams: 03/21/20 15:12 03/21/20 17:00 Lab Results 03/21/20 03/21/20 03/21/20 Range/Units 14:32 15:12 15:12 WBC 22.16 H (4.8-10.8) K/uL RBC 3.72 L (4.7-6.1) M/uL Hgb 10.9 L (14.0-18.0) g/dL Hct 37.0 L (42-52) % MCV 99.5 (80-100) fL MCH 29.3 (25-34) pg MCHC 29.5 L (32-36) g/dL RDW Std Deviation 58.0 H (36.4-46.3) fL RDW Coeff of Jace 15.7 H (11.5-14.5) % Plt Count 338 (130-400) K/uL MPV 11.1 H (7.4-10.4) fL Immature Gran % (Auto) 1.1 % Neut % (Auto) 79.9 % Lymph % (Auto) 11.0 % [facility] % (Auto) 7.9 % Eos % (Auto) 0.1 % Baso % (Auto) 0.0 % Neut # (Auto) 17.68 H (1.4-6.5) K/uL Lymph # (Auto) 2.44 (1.2-3.4) K/uL [facility] # (Auto) 1.75 H (0.11-0.59) K/uL Eos # (Auto) 0.03 (0-0.5) K/uL Baso # (Auto) 0.01 (0-0.2) K/uL Immature Gran # (Auto) 0.25 H (0.00-0.02) K/uL PT 10.3 (9.0-12.0) Seconds INR 1.0 (0.9-1.1) APTT 25.2 (21.0-31.0) Seconds PTT Ratio 0.9 VBG pH (7.36-7.41) VBG pCO2 (38-50) mmHg VBG pO2 mmHg VBG HCO3 mmol/L VBG O2 Saturation % VBG Base Excess mEq/L Barometric Pressure mm/Hg Sodium (136-145) mmol/L Potassium (3.5-5.1) mmol/L Chloride (98-107) mmol/L Carbon Dioxide (21-32) mmol/L Anion Gap (3-11) BUN (7-18) mg/dl Creatinine (0.6-1.4) mg/dl Est Cr Clr Drug Dosing Est GFR ( Amer) Est GFR (Non-Af Amer) BUN/Creatinine Ratio (10-20) Glucose (70-99) mg/dl POC Glucose > 600 H* (70-99) mg/dl Lactate (0.4-2.0) mmol/L Calcium (8.5-10.1) mg/dl Magnesium (1.8-2.4) mg/dl Total Bilirubin (0.2-1) mg/dl AST (15-37) U/L ALT (12-78) U/L Alkaline Phosphatase (45-117) U/L Troponin I (0-0.045) ng/ml Total Protein (6.4-8.2) gm/dl Albumin (3.4-5.0) gm/dl Globulin (2.5-4.0) gm/dl Albumin/Globulin Ratio (0.9-2) Beta-Hydroxybutyric Acd (0.2-2.81) mg/dl Procalcitonin (0-0.5) ng/ml 03/21/20 03/21/20 03/21/20 Range/Units 15:12 15:19 15:19 WBC (4.8-10.8) K/uL RBC (4.7-6.1) M/uL Hgb (14.0-18.0) g/dL Hct (42-52) % MCV (80-100) fL MCH (25-34) pg MCHC (32-36) g/dL RDW Std Deviation (36.4-46.3) fL RDW Coeff of Jace (11.5-14.5) % Plt Count (130-400) K/uL MPV (7.4-10.4) fL Immature Gran % (Auto) % Neut % (Auto) % Lymph % (Auto) % [facility] % (Auto) % Eos % (Auto) % Baso % (Auto) % Neut # (Auto) (1.4-6.5) K/uL Lymph # (Auto) (1.2-3.4) K/uL [facility] # (Auto) (0.11-0.59) K/uL Eos # (Auto) (0-0.5) K/uL Baso # (Auto) (0-0.2) K/uL Immature Gran # (Auto) (0.00-0.02) K/uL PT (9.0-12.0) Seconds INR (0.9-1.1) APTT (21.0-31.0) Seconds PTT Ratio VBG pH 7.00 L (7.36-7.41) VBG pCO2 26 L (38-50) mmHg VBG pO2 45 mmHg VBG HCO3 6 mmol/L VBG O2 Saturation 68.2 % VBG Base Excess -23.6 mEq/L Barometric Pressure 734.9 mm/Hg Sodium 131 L (136-145) mmol/L Potassium 7.5 H* (3.5-5.1) mmol/L Chloride 95 L (98-107) mmol/L Carbon Dioxide 5 L* (21-32) mmol/L Anion Gap 32.0 H (3-11) BUN 61 H (7-18) mg/dl Creatinine 3.17 H (0.6-1.4) mg/dl Est Cr Clr Drug Dosing Not Reportable Est GFR ( Amer) 22.1 Est GFR (Non-Af Amer) 19.1 BUN/Creatinine Ratio 19.2 (10-20) Glucose 961 H* (70-99) mg/dl POC Glucose (70-99) mg/dl Lactate (0.4-2.0) mmol/L Calcium 9.7 (8.5-10.1) mg/dl Magnesium 2.9 H (1.8-2.4) mg/dl Total Bilirubin 0.6 (0.2-1) mg/dl AST 16 (15-37) U/L ALT 25 (12-78) U/L Alkaline Phosphatase 112 (45-117) U/L Troponin I 0.066 H* (0-0.045) ng/ml Total Protein 7.6 (6.4-8.2) gm/dl Albumin 3.6 (3.4-5.0) gm/dl Globulin 4.0 (2.5-4.0) gm/dl Albumin/Globulin Ratio 0.9 (0.9-2) Beta-Hydroxybutyric Acd 120.45 H (0.2-2.81) mg/dl Procalcitonin 1.38 H (0-0.5) ng/ml 03/21/20 Range/Units 15:26 WBC (4.8-10.8) K/uL RBC (4.7-6.1) M/uL Hgb (14.0-18.0) g/dL Hct (42-52) % MCV (80-100) fL MCH (25-34) pg MCHC (32-36) g/dL RDW Std Deviation (36.4-46.3) fL RDW Coeff of Jace (11.5-14.5) % Plt Count (130-400) K/uL MPV (7.4-10.4) fL Immature Gran % (Auto) % Neut % (Auto) % Lymph % (Auto) % [facility] % (Auto) % Eos % (Auto) % Baso % (Auto) % Neut # (Auto) (1.4-6.5) K/uL Lymph # (Auto) (1.2-3.4) K/uL [facility] # (Auto) (0.11-0.59) K/uL Eos # (Auto) (0-0.5) K/uL Baso # (Auto) (0-0.2) K/uL Immature Gran # (Auto) (0.00-0.02) K/uL PT (9.0-12.0) Seconds INR (0.9-1.1) APTT (21.0-31.0) Seconds PTT Ratio VBG pH (7.36-7.41) VBG pCO2 (38-50) mmHg VBG pO2 mmHg VBG HCO3 mmol/L VBG O2 Saturation % VBG Base Excess mEq/L Barometric Pressure mm/Hg Sodium (136-145) mmol/L Potassium (3.5-5.1) mmol/L Chloride (98-107) mmol/L Carbon Dioxide (21-32) mmol/L Anion Gap (3-11) BUN (7-18) mg/dl Creatinine (0.6-1.4) mg/dl Est Cr Clr Drug Dosing Est GFR ( Amer) Est GFR (Non-Af Amer) BUN/Creatinine Ratio (10-20) Glucose (70-99) mg/dl POC Glucose (70-99) mg/dl Lactate 6.8 H* (0.4-2.0) mmol/L Calcium (8.5-10.1) mg/dl Magnesium (1.8-2.4) mg/dl Total Bilirubin (0.2-1) mg/dl AST (15-37) U/L ALT (12-78) U/L Alkaline Phosphatase (45-117) U/L Troponin I (0-0.045) ng/ml Total Protein (6.4-8.2) gm/dl Albumin (3.4-5.0) gm/dl Globulin (2.5-4.0) gm/dl Albumin/Globulin Ratio (0.9-2) Beta-Hydroxybutyric Acd (0.2-2.81) mg/dl Procalcitonin (0-0.5) ng/ml Administered Medications Insulin Human Regular 250 (units/ Sodium Chloride) 250 mls @ 6 mls/hr IV .Q24H AYDEN; Protocol Stop: 04/20/20 15:44 Last Admin: 03/21/20 16:37 Dose: 6 units/hr, 6 mls/hr Documented by: [id number] Cosigned by: [id number] Midazolam HCl (Versed) 125 mg in 250 mls @ 2 mls/hr IV .Q96H PRN; Protocol PRN Reason: Agitation Stop: 04/20/20 16:09 Last Admin: 03/21/20 16:44 Dose: 1 mg/hr, 2 mls/hr Documented by: [id number] Cosigned by: [id number] Discontinued Medications Ceftriaxone Sodium (Rocephin) 1,000 mg in 50 mls @ 100 mls/hr IV NOW STA Stop: 03/21/20 15:21 Last Infusion: 03/21/20 16:37 Dose: 0 mls/hr Documented by: [id number] Admin: 03/21/20 15:33 Dose: 100 mls/hr Documented by: [id number] Parenteral Electrolytes (Normosol-R) 1,000 mls @ 999 mls/hr IV .Q1H1M ONE Stop: 03/21/20 15:59 Last Infusion: 03/21/20 16:37 Dose: 0 mls/hr Documented by: [id number] Admin: 03/21/20 15:33 Dose: 999 mls/hr Documented by: [id number] Calcium Gluconate 1,000 mg/ (Sodium Chloride) 60 mls @ 240 mls/hr IV NOW STA Stop: 03/21/20 16:07 Last Infusion: 03/21/20 16:37 Dose: 0 mls/hr Documented by: [id number] Admin: 03/21/20 16:01 Dose: 240 mls/hr Documented by: [id number] Insulin Human Regular (Novolin-R Bolus From Bag) 7 units IV ONE ONE Stop: 03/21/20 16:01 Last Admin: 03/21/20 16:35 Dose: 7 units Documented by: [id number] Cosigned by: [id number] Ketamine HCl (Ketamine Hcl Inj 50 Mg/Ml 10 Ml Vial) 125 mg IV TODAY@1545 ONE Stop: 03/21/20 15:46 Last Admin: 03/21/20 15:34 Dose: 125 mg Documented by: [id number] Rocuronium [place] (Rocuronium [place] 10 Mg/Ml 5 Ml Vial) 75 mg IV TODAY@1545 ONE Stop: 03/21/20 15:46 Last Admin: 03/21/20 15:35 Dose: 75 mg Documented by: [id number] Cosigned by: [id number] Sodium Bicarbonate (Sodium Bicarb 8.4% Inj 50 Meq/50 Ml Syr) 50 meq IV NOW STA Stop: 03/21/20 15:54 Last Admin: 03/21/20 15:58 Dose: 50 meq Documented by: [id number] Discharge Plan Visit Data Chief Complaint: Hyperglycemia ED Provider: Thomas Moses Discharge Problem: DKA (diabetic ketoacidoses), Metabolic acidosis, Acute hyperkalemia, Leukocytosis, Lactic acid acidosis Discharge Instructions Interventions: ED Discharge Assessment Last Done: 03/21/20 17:34 Discharge Problem: DKA (diabetic ketoacidoses) Qualifiers: Diabetes mellitus type: type 1 Diabetes mellitus complication detail: with coma Qualified Code(s): E10.11 - Type 1 diabetes mellitus with ketoacidosis with coma Leukocytosis Qualifiers: Leukocytosis type: unspecified Qualified Code(s): D72.829 - Elevated white blood cell count, unspecified
[2020-03-21] MEDS ORDERED: ICU PROTOCOL FOR HYPERGLYCEMIA PRN (18:14)
[2020-03-21] MEDS ORDERED: INSULIN PROTOCOL GOAL RANGE ONE (18:23)
[2020-03-21] MEDS ORDERED: HHS GOAL RANGE 250-350 mg/dl ONE (18:23)
[2020-03-21] MEDS ORDERED: INSULIN REGULAR 250 UNITS in SODIUM CHLORIDE 0.9% 247.5 ML IV SCH (18:30)
--- NOTE | 2020-03-21 18:34 | Critical Care Consultation ---
Date of Consultation March 21, 2020 Assessment & Plan (1) Respiratory failure: Reason Critically Ill: 69-year-old male with a history of PLAN: Neuro: Metabolic encephalopathy -Versed and fentanyl for sedation Resp: Acute respiratory failure -Aggressive ventilation given DKA CV: History paroxysmal atrial fibrillation -Currently sinus tachycardia -Low risk currently for cardioembolic events will continue DVT prophylaxis but holding systemic anticoagulation Fluids/Renal: DKA -Initial volume expansion with 2 L bicarb and Normosol infusions -Anticipate switch to half NS with supplemental potassium when reaching goal blood sugar ID: Afebrile, no obvious concern for infectious etiology given report of refusing insulin -Given Rocephin in emergency department -Procalcitonin no utility in CHIVO -Blood cultures pending will hold antibiotic coverage at this time GI/Nutrition: Sarcopenia -BMI 22 Heme: anemia -Appears to be at baseline Leukocytosis -Unclear etiology DVT prophylaxis: Heparin 5000 twice daily Endocrine: ICU hyperglycemia protocol DKA HHS protocol -Volume expansion with 2 L of bicarb drip starting with Normosol infusion Vascular access: Peripheral IV, will proceed with arterial line given poor access and need for frequent labs emergently Code Status: Full code Disposition: ICU (2) Leukocytosis: (3) Anemia: (4) CHIVO (acute kidney injury): (5) Metabolic encephalopathy: (6) Paroxysmal atrial fibrillation with RVR: (7) Anorexia: History of Present Illness Reason for Consultation: Diabetic ketoacidosis and metabolic encephalopathy Requesting Physician: Zain Kim MD Attending Physician: Zain Kim MD History of Present Illness Patient is a 69-year-old male who resides at the [facility] who has a past medical history of insulin-dependent diabetes type 1, hypertension, bipolar disorder who was brought to the emergency department for unresponsiveness. History is obtained from prior records and other medical providers patient was unable to participate in meaningful conversation. Was reported the patient had been refusing to take insulin. Patient was intubated secondary to significant unresponsiveness. Of note the patient had a history of requiring COVID-19 and was admitted November 2019 and developed paroxysmal A. fib at that time. Allergies Allergy/AdvReac Type Severity Reaction Status Date / Time Unable to Assess Allergy Unverified 12/10/19 11:37 Home Medications Home Medications Medication Instructions Recorded Confirmed Type cholecalciferol (vitamin D3) 1,000 unit PO DAILY 12/10/19 03/21/20 History apixaban [Eliquis] 5 mg PO BID #60 tab 01/02/20 03/21/20 Rx losartan 25 mg PO QAM #30 tab 01/02/20 03/21/20 Rx metoprolol tartrate 25 mg PO BID #60 tab 01/02/20 03/21/20 Rx quetiapine 12.5 mg PO BID #20 tab 01/02/20 03/21/20 Rx quetiapine 25 mg PO HS #20 tab 01/02/20 03/21/20 Rx sertraline 50 mg PO HS #30 tab 01/02/20 03/21/20 Rx atorvastatin 10 mg PO DAILY 03/21/20 03/21/20 History insulin aspart U-100 [Novolog 10 unit SUBCUT BID 03/21/20 03/21/20 History U-100 Insulin aspart] insulin glargine [Lantus U-100 18 units SQ QPM 03/21/20 03/21/20 History Insulin] Patient History Medical History Bipolar 1 disorder Cognitive disorder Depression Diabetes mellitus type 1 with complications HTN (hypertension) Hypertension Status post amputation of toe of left foot Surgical History Status post below-knee amputation of left lower extremity Family History Other Family history unobtainable due to patient's condition Social History Smoking Status: Unknown if ever smoked Preferred Language: Turkish Communication Ability: unknown Decorator Mannequin Required: No Beliefs That Will Affect Care: None Current Living Situation: Retirement Current Living Situation Comment: [facility] Feels Safe at Home: Yes Review of Systems Review of Systems: Unobtainable due to cognitive status and Unobtainable due to endotracheal tube Physical Exam Physical Exam: General: Unresponsive Skin: Warm, dry, Head: Atraumatic Ears, nose, mouth and throat: Obscured by endotracheal tube Cardiovascular: Normal peripheral perfusion, tachycardia noted on bedside monitor Respiratory: no respiratory distress Gastrointestinal: Non distended Musculoskeletal: Forefoot amputation on right lower extremity with no evidence of erythema, below the knee amputation in the left lower extremity. Results & Data Results & Data ([facility]) Vital Signs (Past 12 Hours) Vital Signs Temp Pulse Resp BP Pulse Ox 03/21/20 18:11 91 H 17 125/58 L 100 03/21/20 18:10 92 H 19 100 03/21/20 17:35 89 116/51 L 100 03/21/20 17:30 89 116/47 L 100 03/21/20 17:25 89 115/50 L 100 03/21/20 17:20 90 119/39 L 100 03/21/20 17:15 89 101/40 L 100 03/21/20 17:10 91 H 114/40 L 100 03/21/20 17:05 91 H 99/43 L 100 03/21/20 17:00 91 H 113/36 L 100 03/21/20 16:55 91 H 112/36 L 100 03/21/20 16:53 26 H 100 03/21/20 16:50 93 H 103/47 L 100 03/21/20 16:45 92 H 106/43 L 100 03/21/20 16:40 93 H 119/40 L 100 03/21/20 16:35 93 H 26 H 108/43 L 100 03/21/20 16:33 95 H 113/42 L 100 03/21/20 16:18 100 H 24 100 03/21/20 16:00 92 H 100/52 L 100 03/21/20 15:55 97 H 109/42 L 100 03/21/20 15:50 94 H 98/36 L 100 03/21/20 15:45 91 H 89/32 L 100 03/21/20 15:42 89 80/25 L 100 03/21/20 15:41 90 75/42 L 100 03/21/20 15:35 92 H 100/50 L 100 03/21/20 15:33 92 H 35 H 91/54 L 100 03/21/20 15:15 91 H 29 H 97/46 L 100 03/21/20 15:01 90 33 H 110/43 L 100 03/21/20 14:45 90 20 94/58 L 100 03/21/20 14:39 37.4 C 88 32 H 87/62 L 100 03/21/20 14:31 92 H 33 H 87/62 L 100 03/21/20 14:28 93 H 35 H 97/40 L 100 Laboratory Results 03/21/20 03/21/20 03/21/20 Range/Units 18:15 17:38 17:17 WBC (4.8-10.8) K/uL RBC (4.7-6.1) M/uL Hgb (14.0-18.0) g/dL Hct (42-52) % MCV (80-100) fL MCH (25-34) pg MCHC (32-36) g/dL RDW Std Deviation (36.4-46.3) fL RDW Coeff of Jace (11.5-14.5) % Plt Count (130-400) K/uL MPV (7.4-10.4) fL Immature Gran % (Auto) % Neut % (Auto) % Lymph % (Auto) % [place] % (Auto) % Eos % (Auto) % Baso % (Auto) % Neut # (Auto) (1.4-6.5) K/uL Lymph # (Auto) (1.2-3.4) K/uL [place] # (Auto) (0.11-0.59) K/uL Eos # (Auto) (0-0.5) K/uL Baso # (Auto) (0-0.2) K/uL Immature Gran # (Auto) (0.00-0.02) K/uL PT (9.0-12.0) Seconds INR (0.9-1.1) APTT (21.0-31.0) Seconds PTT Ratio POC pH (7.35-7.45) POC pCO2 (35-46) mmHg POC pO2 (80-95) mmHg POC HCO3 (19-24) rene/L POC Total CO2 (24-31) mmol/L POC Base Excess (-9-1.8) rene/L ABG pH ABG pCO2 ABG pO2 ABG HCO3 POC ABG O2 Sat (90-95) % ABG O2 Saturation ABG Base Excess Hbarat Test VBG pH (7.36-7.41) VBG pCO2 (38-50) mmHg VBG pO2 mmHg VBG HCO3 mmol/L VBG O2 Saturation % VBG Base Excess mEq/L Barometric Pressure mm/Hg Oxygen Given Sodium (136-145) mmol/L Potassium (3.5-5.1) mmol/L Chloride (98-107) mmol/L Carbon Dioxide (21-32) mmol/L Anion Gap (3-11) BUN (7-18) mg/dl Creatinine (0.6-1.4) mg/dl Est Cr Clr Drug Dosing Est GFR ( Amer) Est GFR (Non-Af Amer) BUN/Creatinine Ratio (10-20) Glucose (70-99) mg/dl POC Glucose > 600 H* (70-99) mg/dl Lactate 4.1 H* (0.4-2.0) mmol/L Calcium (8.5-10.1) mg/dl Magnesium (1.8-2.4) mg/dl Total Bilirubin (0.2-1) mg/dl AST (15-37) U/L ALT (12-78) U/L Alkaline Phosphatase (45-117) U/L Troponin I (0-0.045) ng/ml Total Protein (6.4-8.2) gm/dl Albumin (3.4-5.0) gm/dl Globulin (2.5-4.0) gm/dl Albumin/Globulin Ratio (0.9-2) Beta-Hydroxybutyric Acd (0.2-2.81) mg/dl Procalcitonin (0-0.5) ng/ml Urine Color Urine Appearance (Clear) Urine pH (4.5-7.5) Ur Specific [place] (1.000-1.030) Urine Protein (Negative) Urine Glucose (UA) (Negative) Urine Ketones (Negative) Urine Blood (Negative) Urine Nitrite (Negative) Urine Bilirubin (Negative) Urine Urobilinogen (Negative) Ur Leukocyte Esterase (Negative) Urine WBC (Auto) (0-5) /hpf Urine RBC (Auto) (0-4) /hpf U Hyaline Cast (Auto) (0-5) /lpf U Epithel Cells (Auto) (0-5) /lpf Urine Bacteria (Auto) (Negative) Nasal Screen MRSA (PCR) Pending 03/21/20 03/21/20 03/21/20 Range/Units 17:00 17:00 16:58 WBC (4.8-10.8) K/uL RBC (4.7-6.1) M/uL Hgb (14.0-18.0) g/dL Hct (42-52) % MCV (80-100) fL MCH (25-34) pg MCHC (32-36) g/dL RDW Std Deviation (36.4-46.3) fL RDW Coeff of Jace (11.5-14.5) % Plt Count (130-400) K/uL MPV (7.4-10.4) fL Immature Gran % (Auto) % Neut % (Auto) % Lymph % (Auto) % [place] % (Auto) % Eos % (Auto) % Baso % (Auto) % Neut # (Auto) (1.4-6.5) K/uL Lymph # (Auto) (1.2-3.4) K/uL [place] # (Auto) (0.11-0.59) K/uL Eos # (Auto) (0-0.5) K/uL Baso # (Auto) (0-0.2) K/uL Immature Gran # (Auto) (0.00-0.02) K/uL PT (9.0-12.0) Seconds INR (0.9-1.1) APTT (21.0-31.0) Seconds PTT Ratio POC pH 7.02 L* (7.35-7.45) POC pCO2 25 L (35-46) mmHg POC pO2 122 H (80-95) mmHg POC HCO3 7 L (19-24) rene/L POC Total CO2 7 L* (24-31) mmol/L POC Base Excess -24.0 L (-9-1.8) rene/L ABG pH ABG pCO2 ABG pO2 ABG HCO3 POC ABG O2 Sat 96.0 H (90-95) % ABG O2 Saturation ABG Base Excess Bhaart Test VBG pH (7.36-7.41) VBG pCO2 (38-50) mmHg VBG pO2 mmHg VBG HCO3 mmol/L VBG O2 Saturation % VBG Base Excess mEq/L Barometric Pressure mm/Hg Oxygen Given Sodium 137 (136-145) mmol/L Potassium 6.0 H D (3.5-5.1) mmol/L Chloride 103 (98-107) mmol/L Carbon Dioxide 7 L* (21-32) mmol/L Anion Gap 27.0 H (3-11) BUN 57 H (7-18) mg/dl Creatinine 2.69 H D (0.6-1.4) mg/dl Est Cr Clr Drug Dosing Not Reportable Est GFR ( Amer) 27.0 Est GFR (Non-Af Amer) 23.3 BUN/Creatinine Ratio 21.3 H (10-20) Glucose 837 H* (70-99) mg/dl POC Glucose > 600 H* (70-99) mg/dl Lactate (0.4-2.0) mmol/L Calcium 8.6 (8.5-10.1) mg/dl Magnesium (1.8-2.4) mg/dl Total Bilirubin (0.2-1) mg/dl AST (15-37) U/L ALT (12-78) U/L Alkaline Phosphatase (45-117) U/L Troponin I (0-0.045) ng/ml Total Protein (6.4-8.2) gm/dl Albumin (3.4-5.0) gm/dl Globulin (2.5-4.0) gm/dl Albumin/Globulin Ratio (0.9-2) Beta-Hydroxybutyric Acd 111.76 H (0.2-2.81) mg/dl Procalcitonin (0-0.5) ng/ml Urine Color Urine Appearance (Clear) Urine pH (4.5-7.5) Ur Specific [place] (1.000-1.030) Urine Protein (Negative) Urine Glucose (UA) (Negative) Urine Ketones (Negative) Urine Blood (Negative) Urine Nitrite (Negative) Urine Bilirubin (Negative) Urine Urobilinogen (Negative) Ur Leukocyte Esterase (Negative) Urine WBC (Auto) (0-5) /hpf Urine RBC (Auto) (0-4) /hpf U Hyaline Cast (Auto) (0-5) /lpf U Epithel Cells (Auto) (0-5) /lpf Urine Bacteria (Auto) (Negative) Nasal Screen MRSA (PCR) 03/21/20 03/21/20 03/21/20 Range/Units 16:51 15:26 15:19 WBC (4.8-10.8) K/uL RBC (4.7-6.1) M/uL Hgb (14.0-18.0) g/dL Hct (42-52) % MCV (80-100) fL MCH (25-34) pg MCHC (32-36) g/dL RDW Std Deviation (36.4-46.3) fL RDW Coeff of Jace (11.5-14.5) % Plt Count (130-400) K/uL MPV (7.4-10.4) fL Immature Gran % (Auto) % Neut % (Auto) % Lymph % (Auto) % [place] % (Auto) % Eos % (Auto) % Baso % (Auto) % Neut # (Auto) (1.4-6.5) K/uL Lymph # (Auto) (1.2-3.4) K/uL [place] # (Auto) (0.11-0.59) K/uL Eos # (Auto) (0-0.5) K/uL Baso # (Auto) (0-0.2) K/uL Immature Gran # (Auto) (0.00-0.02) K/uL PT (9.0-12.0) Seconds INR (0.9-1.1) APTT (21.0-31.0) Seconds PTT Ratio POC pH (7.35-7.45) POC pCO2 (35-46) mmHg POC pO2 (80-95) mmHg POC HCO3 (19-24) rene/L POC Total CO2 (24-31) mmol/L POC Base Excess (-9-1.8) rene/L ABG pH ABG pCO2 ABG pO2 ABG HCO3 POC ABG O2 Sat (90-95) % ABG O2 Saturation ABG Base Excess Bharat Test VBG pH 7.00 L (7.36-7.41) VBG pCO2 26 L (38-50) mmHg VBG pO2 45 mmHg VBG HCO3 6 mmol/L VBG O2 Saturation 68.2 % VBG Base Excess -23.6 mEq/L Barometric Pressure 734.9 mm/Hg Oxygen Given Sodium (136-145) mmol/L Potassium (3.5-5.1) mmol/L Chloride (98-107) mmol/L Carbon Dioxide (21-32) mmol/L Anion Gap (3-11) BUN (7-18) mg/dl Creatinine (0.6-1.4) mg/dl Est Cr Clr Drug Dosing Est GFR ( Amer) Est GFR (Non-Af Amer) BUN/Creatinine Ratio (10-20) Glucose (70-99) mg/dl POC Glucose (70-99) mg/dl Lactate 6.8 H* (0.4-2.0) mmol/L Calcium (8.5-10.1) mg/dl Magnesium (1.8-2.4) mg/dl Total Bilirubin (0.2-1) mg/dl AST (15-37) U/L ALT (12-78) U/L Alkaline Phosphatase (45-117) U/L Troponin I (0-0.045) ng/ml Total Protein (6.4-8.2) gm/dl Albumin (3.4-5.0) gm/dl Globulin (2.5-4.0) gm/dl Albumin/Globulin Ratio (0.9-2) Beta-Hydroxybutyric Acd (0.2-2.81) mg/dl Procalcitonin (0-0.5) ng/ml Urine Color Yellow Urine Appearance Clear (Clear) Urine pH 5.0 (4.5-7.5) Ur Specific [place] 1.026 (1.000-1.030) Urine Protein 1+ H (Negative) Urine Glucose (UA) 3+ H (Negative) Urine Ketones 3+ H (Negative) Urine Blood Trace H (Negative) Urine Nitrite Negative (Negative) Urine Bilirubin Negative (Negative) Urine Urobilinogen Negative (Negative) Ur Leukocyte Esterase Negative (Negative) Urine WBC (Auto) 1-5 (0-5) /hpf Urine RBC (Auto) 0-4 (0-4) /hpf U Hyaline Cast (Auto) 1-5 (0-5) /lpf U Epithel Cells (Auto) 5-10 H (0-5) /lpf Urine Bacteria (Auto) Negative (Negative) Nasal Screen MRSA (PCR) 03/21/20 03/21/20 03/21/20 Range/Units 15:19 15:19 15:12 WBC (4.8-10.8) K/uL RBC (4.7-6.1) M/uL Hgb (14.0-18.0) g/dL Hct (42-52) % MCV (80-100) fL MCH (25-34) pg MCHC (32-36) g/dL RDW Std Deviation (36.4-46.3) fL RDW Coeff of Jace (11.5-14.5) % Plt Count (130-400) K/uL MPV (7.4-10.4) fL Immature Gran % (Auto) % Neut % (Auto) % Lymph % (Auto) % [place] % (Auto) % Eos % (Auto) % Baso % (Auto) % Neut # (Auto) (1.4-6.5) K/uL Lymph # (Auto) (1.2-3.4) K/uL [place] # (Auto) (0.11-0.59) K/uL Eos # (Auto) (0-0.5) K/uL Baso # (Auto) (0-0.2) K/uL Immature Gran # (Auto) (0.00-0.02) K/uL PT (9.0-12.0) Seconds INR (0.9-1.1) APTT (21.0-31.0) Seconds PTT Ratio POC pH (7.35-7.45) POC pCO2 (35-46) mmHg POC pO2 (80-95) mmHg POC HCO3 (19-24) rene/L POC Total CO2 (24-31) mmol/L POC Base Excess (-9-1.8) rene/L ABG pH Pending ABG pCO2 Pending ABG pO2 Pending ABG HCO3 Pending POC ABG O2 Sat (90-95) % ABG O2 Saturation Pending ABG Base Excess Pending Bharat Test Pending VBG pH (7.36-7.41) VBG pCO2 (38-50) mmHg VBG pO2 mmHg VBG HCO3 mmol/L VBG O2 Saturation % VBG Base Excess mEq/L Barometric Pressure mm/Hg Oxygen Given Pending Sodium 131 L (136-145) mmol/L Potassium 7.5 H* (3.5-5.1) mmol/L Chloride 95 L (98-107) mmol/L Carbon Dioxide 5 L* (21-32) mmol/L Anion Gap 32.0 H (3-11) BUN 61 H (7-18) mg/dl Creatinine 3.17 H (0.6-1.4) mg/dl Est Cr Clr Drug Dosing Not Reportable Est GFR ( Amer) 22.1 Est GFR (Non-Af Amer) 19.1 BUN/Creatinine Ratio 19.2 (10-20) Glucose 961 H* (70-99) mg/dl POC Glucose (70-99) mg/dl Lactate (0.4-2.0) mmol/L Calcium 9.7 (8.5-10.1) mg/dl Magnesium 2.9 H (1.8-2.4) mg/dl Total Bilirubin 0.6 (0.2-1) mg/dl AST 16 (15-37) U/L ALT 25 (12-78) U/L Alkaline Phosphatase 112 (45-117) U/L Troponin I 0.066 H* (0-0.045) ng/ml Total Protein 7.6 (6.4-8.2) gm/dl Albumin 3.6 (3.4-5.0) gm/dl Globulin 4.0 (2.5-4.0) gm/dl Albumin/Globulin Ratio 0.9 (0.9-2) Beta-Hydroxybutyric Acd 120.45 H (0.2-2.81) mg/dl Procalcitonin 1.38 H (0-0.5) ng/ml Urine Color Urine Appearance (Clear) Urine pH (4.5-7.5) Ur Specific [place] (1.000-1.030) Urine Protein (Negative) Urine Glucose (UA) (Negative) Urine Ketones (Negative) Urine Blood (Negative) Urine Nitrite (Negative) Urine Bilirubin (Negative) Urine Urobilinogen (Negative) Ur Leukocyte Esterase (Negative) Urine WBC (Auto) (0-5) /hpf Urine RBC (Auto) (0-4) /hpf U Hyaline Cast (Auto) (0-5) /lpf U Epithel Cells (Auto) (0-5) /lpf Urine Bacteria (Auto) (Negative) Nasal Screen MRSA (PCR) 03/21/20 03/21/20 03/21/20 Range/Units 15:12 15:12 14:32 WBC 22.16 H (4.8-10.8) K/uL RBC 3.72 L (4.7-6.1) M/uL Hgb 10.9 L (14.0-18.0) g/dL Hct 37.0 L (42-52) % MCV 99.5 (80-100) fL MCH 29.3 (25-34) pg MCHC 29.5 L (32-36) g/dL RDW Std Deviation 58.0 H (36.4-46.3) fL RDW Coeff of Jace 15.7 H (11.5-14.5) % Plt Count 338 (130-400) K/uL MPV 11.1 H (7.4-10.4) fL Immature Gran % (Auto) 1.1 % Neut % (Auto) 79.9 % Lymph % (Auto) 11.0 % [place] % (Auto) 7.9 % Eos % (Auto) 0.1 % Baso % (Auto) 0.0 % Neut # (Auto) 17.68 H (1.4-6.5) K/uL Lymph # (Auto) 2.44 (1.2-3.4) K/uL [place] # (Auto) 1.75 H (0.11-0.59) K/uL Eos # (Auto) 0.03 (0-0.5) K/uL Baso # (Auto) 0.01 (0-0.2) K/uL Immature Gran # (Auto) 0.25 H (0.00-0.02) K/uL PT 10.3 (9.0-12.0) Seconds INR 1.0 (0.9-1.1) APTT 25.2 (21.0-31.0) Seconds PTT Ratio 0.9 POC pH (7.35-7.45) POC pCO2 (35-46) mmHg POC pO2 (80-95) mmHg POC HCO3 (19-24) rene/L POC Total CO2 (24-31) mmol/L POC Base Excess (-9-1.8) rene/L ABG pH ABG pCO2 ABG pO2 ABG HCO3 POC ABG O2 Sat (90-95) % ABG O2 Saturation ABG Base Excess Bharat Test VBG pH (7.36-7.41) VBG pCO2 (38-50) mmHg VBG pO2 mmHg VBG HCO3 mmol/L VBG O2 Saturation % VBG Base Excess mEq/L Barometric Pressure mm/Hg Oxygen Given Sodium (136-145) mmol/L Potassium (3.5-5.1) mmol/L Chloride (98-107) mmol/L Carbon Dioxide (21-32) mmol/L Anion Gap (3-11) BUN (7-18) mg/dl Creatinine (0.6-1.4) mg/dl Est Cr Clr Drug Dosing Est GFR ( Amer) Est GFR (Non-Af Amer) BUN/Creatinine Ratio (10-20) Glucose (70-99) mg/dl POC Glucose > 600 H* (70-99) mg/dl Lactate (0.4-2.0) mmol/L Calcium (8.5-10.1) mg/dl Magnesium (1.8-2.4) mg/dl Total Bilirubin (0.2-1) mg/dl AST (15-37) U/L ALT (12-78) U/L Alkaline Phosphatase (45-117) U/L Troponin I (0-0.045) ng/ml Total Protein (6.4-8.2) gm/dl Albumin (3.4-5.0) gm/dl Globulin (2.5-4.0) gm/dl Albumin/Globulin Ratio (0.9-2) Beta-Hydroxybutyric Acd (0.2-2.81) mg/dl Procalcitonin (0-0.5) ng/ml Urine Color Urine Appearance (Clear) Urine pH (4.5-7.5) Ur Specific [place] (1.000-1.030) Urine Protein (Negative) Urine Glucose (UA) (Negative) Urine Ketones (Negative) Urine Blood (Negative) Urine Nitrite (Negative) Urine Bilirubin (Negative) Urine Urobilinogen (Negative) Ur Leukocyte Esterase (Negative) Urine WBC (Auto) (0-5) /hpf Urine RBC (Auto) (0-4) /hpf U Hyaline Cast (Auto) (0-5) /lpf U Epithel Cells (Auto) (0-5) /lpf Urine Bacteria (Auto) (Negative) Nasal Screen MRSA (PCR) Diagnostic Findings I reviewed the CT abdomen pelvis report as well as the head and independently reviewed the chest x-ray IMPRESSION: 1. No bowel obstruction or bowel wall thickening. 2. Trace pleural effusions with bibasilar opacities suggestive of atelectasis. 3. Hepatic steatosis. 4. Technically age-indeterminate L4 compression deformity without paravertebral edema, likely chronic. 5. Additional findings as above. IMPRESSION: No acute intracranial abnormality. Coding Level of Care Code Critical Care 1st 30-74 mins Diagnoses Respiratory failure J96.00 Chronicity: acute Respiratory failure complication: unspecified whether with hypoxia or hypercapnia Leukocytosis D72.829 Leukocytosis type: unspecified Anemia D64.9 CHIVO (acute kidney injury) N17.9 Metabolic encephalopathy G93.41 Paroxysmal atrial fibrillation with RVR I48.0 Anorexia R63.0 Time Spent (min) 70 Comment I have personally spent 70 minutes of critical care time in the direct management of this patient. This is a life/limb threatening event. This includes time spent evaluating patient, direct bedside care, chart review, placing orders, interpretation of diagnostic studies, discussion with consultants, patient, and/or family members regarding treatment decisions, as well as other required patient management activities. This time is exclusive of all separately billable procedures, and teaching time and separate from and in addition to any other critical care service time. (1) Leukocytosis Leukocytosis type: unspecified Qualified Code(s): D72.829 - Elevated white blood cell count, unspecified (2) Respiratory failure Chronicity: acute Respiratory failure complication: unspecified whether with hypoxia or hypercapnia Qualified Code(s): J96.00 - Acute respiratory failure, unspecified whether with hypoxia or hypercapnia
[2020-03-21] MEDS: NORMOSOL-R 1,000 ML IV SCH (18:56)
[2020-03-21] MEDS: SODIUM BICARBONATE 8.4% 150 MEQ in WATER, STERILE 1,000 ML IV SCH ×2 (18:57→20:52)
[2020-03-21 19:15] LABS: BUN Creatinine Ratio 19.3 (10-20); Calcium 8.5 mg/dl (8.5-10.1); Creatinine Clr Calc Pharmacy 22.5 ml/min; Est GFR (African American) 25.4; Est GFR (Non-African American) 21.9; Magnesium 2.7 mg/dl (1.8-2.4); Phosphorus 7.5 mg/dl (2.5-4.9); Potassium 4.6 mmol/L (3.5-5.1)
[2020-03-21] MEDS: PENDING D5 1/2NS+20mEq KCL IVF SCH ×3 (19:33→22:46)
[2020-03-21 19:45] LABS: Beta-Hydroxybutyrate 105.9 mg/dl (0.2-2.81)
--- NOTE | 2020-03-21 20:12 | Procedure Note ---
Procedure Note Date of Service March 21, 2020 A-Line Procedure: Arterial Line Placement Attending: Dr. Donald APC: Ehsan Echevarria PA-C Indication: Monitoring on Pressors Anesthesia: Lidocaine 1% Emergent consent implied in the setting of need for frequent ABGs and lab draws with poor peripheral access in the setting of DKA and respiratory failure requiring endotracheal intubation. A time-out was completed verifying correct patient, procedure, site, positioning, and implant(s) or special equipment if applicable. Allens test was performed to ensure adequate perfusion. Patients LEFT wrist was prepped and draped in the usual sterile fashion. Ultrasound guidance was used to aid needle placement. A 20g Arrow arterial line was introduced into the LEFT Radial artery. Catheter was threaded, and the needle was removed with appropriate blood return. Good waveform was observed. The patient tolerated the procedure well. Confirmat ion of placement with ultrasound. Blood Loss: Minimal Complications: None Procedural Ultrasound Guidance: Procedure Date: 03/21/2020 Indication: ABGs, Frequent labs, poor peripheral access Attending: Dr. Donald APC: Ehsan Echevarria PA-C Artery Identified: YES Line confirmed in Artery with ultrasound: YES Complications: NONE Patient tolerated procedure: WELL Coding CPT Codes Tubes, Drains, and Vasc Access - Tubes, Drains, and Vasc Access: [id number] Place Catheter In Artery ([id number]) [facility] [place] Codes ([place]arges) Tubes, Drains, and Vasc Access Procedure 1: Tubes, Drains, and Vasc Access: [id number] Place Catheter In Artery
[2020-03-21] MEDS ORDERED: INSULIN ASPART 100 UNITS/ML 3 ML PEN SC SCH (21:00)
[2020-03-21 21:41] LABS: Beta-Hydroxybutyrate 94.15 mg/dl (0.2-2.81)
[2020-03-21] MEDS: INSULIN ASPART 100 UNITS/ML 3 ML PEN SC SCH (21:51)
[2020-03-21 22:34] LABS: Allen Test POS (Pos); Base Excess ABG -3.2 mEq/L (-9-1.8); HCO3 ABG 20 mmol/L (19-24); Oxygen Saturation ABG 98.7 % (90-95); PCO2 ABG 30 mmHg (35-46); PO2 ABG 120 mmHg (80-95); pH ABG 7.45 (7.35-7.45)
[2020-03-21 22:50] LABS: Calcium 8.2 mg/dl (8.5-10.1); Creatinine Clr Calc Pharmacy 28.1 ml/min; Est GFR (African American) 33.1; Est GFR (Non-African American) 28.6; Magnesium 2.5 mg/dl (1.8-2.4)
[2020-03-21 23:19] LABS: Beta-Hydroxybutyrate 74.17 mg/dl (0.2-2.81)
[2020-03-21 23:27] LABS: Potassium 3.7 mmol/L (3.5-5.1)
[2020-03-21 23:28] LABS: Phosphorus 2.8 mg/dl (2.5-4.9)
[2020-03-21] MEDS: fentaNYL citrate 100 MCG/2 ML VIAL IV PRN (23:56)
[2020-03-22] MEDS: NORMOSOL-R 1,000 ML IV SCH
[2020-03-22] MEDS: PENDING D5 1/2NS+20mEq KCL IVF SCH ×2 (01:39→03:44)
[2020-03-22 03:38] LABS: BUN Creatinine Ratio 21.4 (10-20); Creatinine Clr Calc Pharmacy 30.7 ml/min; Est GFR (African American) 36.8; Est GFR (Non-African American) 31.8; Magnesium 2.2 mg/dl (1.8-2.4); Phosphorus 0.4 mg/dl (2.5-4.9)
[2020-03-22] MEDS ORDERED: POTASSIUM PHOS 3 MMOL/1 ML INFUSION IV STA ×2 (03:41→14:34)
[2020-03-22] MEDS ORDERED: PENDING D5 1/2NS+40mEq KCL IVF SCH (04:00)
[2020-03-22] MEDS ORDERED: PENDING 1/2NSS+40mEq KCL IVF SCH (04:00)
[2020-03-22] MEDS ORDERED: POTASSIUM PHOSPHATE 21 MMOL in SODIUM CHLORIDE 0.9% 500 ML IV ONE (04:15)
[2020-03-22] MEDS: POTASSIUM CHLORIDE / WTR 10 MEQ/100 ML PLCT IV SCH ×4 (04:24→08:29)
[2020-03-22 04:39] LABS: Appearance Urine Cloudy (Clear); Bacteria Urine Automated Negative (Negative); Bilirubin Urine Negative (Negative); Blood Urine Negative (Negative); Color Urine Yellow; Glucose Urine UA 3+ (Negative); Ketones Urine 4+ (Negative); Leukocyte Esterase Urine Negative (Negative); Nitrite Urine Negative (Negative); Protein Urine Negative (Negative); Specific Gravity Urine 1.028 (1.000-1.030); Urobilinogen Urine Negative (Negative)
[2020-03-22] MEDS: POTASSIUM CHLORIDE 40 MEQ in D5W AND 1/2NSS 1,000 ML IV SCH ×3 (05:29→18:45)
[2020-03-22 05:40] LABS: iSTAT Arterial Blood Gas HCO3 25 meg/L (19-24); iSTAT Arterial Blood Gas pCO2 19 mmHg (35-46); iSTAT Arterial Blood Gas pH 7.71 (7.35-7.45); iSTAT Arterial Blood Gas pO2 60 mmHg (80-95); iSTAT Carbon Dioxide 25 mmol/L (24-31); iSTAT FiO2 28 %; iSTAT Site Art Line
[2020-03-22 06:59] LABS: Hemoglobin 9.4 g/dL (14.0-18.0); Immature Granulocytes # (auto) 0.02 K/uL (0.00-0.02); Immature Granulocytes % (auto) 0.2 %; Lymphocytes # (auto) 1.91 K/uL (1.2-3.4); Lymphocytes % (auto) 14.5 %; Mean Corpuscular Hemoglobin 29.2 pg (25-34); Mean Corpuscular Hgb Conc 34.8 g/dL (32-36); Mean Corpuscular Volume 83.9 fL (80-100); Mean Platelet Volume 9.2 fL (7.4-10.4); Monocytes # (auto) 1.57 K/uL (0.11-0.59); Monocytes % (auto) 11.9 %; Neutrophils # (auto) 9.68 K/uL (1.4-6.5); Neutrophils % (auto) 73.4 %; Platelet Count 225 K/uL (130-400); RDW Coefficient of Variation 14.2 % (11.5-14.5); RDW Standard Deviation 44.2 fL (36.4-46.3); Red Blood Count 3.22 M/uL (4.7-6.1); White Blood Count 13.18 K/uL (4.8-10.8)
--- NOTE | 2020-03-22 07:01 | Electrocardiogram Report ---
Test Reason : Blood Pressure : / mmHG Vent. Rate : 092 BPM Atrial Rate : 092 BPM P-R Int : 204 ms QRS Dur : 134 ms QT Int : 418 ms P-R-T Axes : 066 085 001 degrees QTc Int : 516 ms Sinus rhythm with Premature atrial complexes Possible Left atrial enlargement Non-specific intra-ventricular conduction block Nonspecific ST and T wave abnormality Abnormal ECG When compared with ECG of 16-DEC-2019 00:28, Sinus rhythm has replaced Atrial fibrillation QRS duration has increased T wave inversion now evident in Inferior leads Nonspecific T wave abnormality no longer evident in Lateral leads Confirmed by Lio Larson ([id number]) on 03/22/2020 7:01:22 AM Referred By: Confirmed By:Lio Larson
[2020-03-22 07:12] LABS: BUN Creatinine Ratio 21.8 (10-20); Calcium 8.6 mg/dl (8.5-10.1); Creatinine Clr Calc Pharmacy 34.1 ml/min; Est GFR (African American) 41.9; Est GFR (Non-African American) 36.1; Magnesium 2.1 mg/dl (1.8-2.4); Potassium 3.3 mmol/L (3.5-5.1)
[2020-03-22 07:25] LABS: Estimated Average Glucose 266 mg/dl; Hemoglobin A1C 10.9 % (4.5-5.6)
[2020-03-22 07:28] LABS: Phosphorus 0.7 mg/dl (2.5-4.9)
[2020-03-22] MEDS ORDERED: Heparin IV Adult Wt-Based Standard *NO* Bolus Protocol IV SCH (07:39)
[2020-03-22] MEDS ORDERED: HEPARIN SODIUM/DEXTROSE 25,000 UNITS/500 ML BAG IV SCH (07:45)
[2020-03-22] MEDS: INSULIN ASPART 100 UNITS/ML 3 ML PEN SC SCH ×4 (08:28→21:02)
[2020-03-22] MEDS: PANTOprazole 40 MG in SYRINGE 0 ML IV SCH (08:29)
--- NOTE | 2020-03-22 08:51 | XRay Report ---
SINGLE VIEW CHEST CLINICAL HISTORY: Respiratory failure. FINDINGS: An AP, portable, upright chest radiograph is compared to study dated 03/21/2020. The examinat ion is degraded by portable technique and patient rotation. Endotracheal and enteric tubes are unchan ged in position. The cardiomediastinal silhouette is unremarkable. Atelectasis is noted at the lung b ases. The lungs and pleural spaces are otherwise clear. No pneumothorax is seen. The skeletal structu res are osteopenic. Chronic posterior matter deformity is noted in the left clavicle. There are numer ous healed right-sided rib fractures. IMPRESSION: 1. Stable lines and tubes. 2. The lungs are clear. ACT 112: Negative or not required by law. Electronically signed by: Nabil Chau M.D. 03/22/2020 8:49 AM
[2020-03-22] MEDS ORDERED: HEPARIN SOD 5,000 UNIT/0.5 ML VIAL SQ SCH (09:00)
[2020-03-22] MEDS ORDERED: PNEUMOCOCCAL Polysaccharide Vaccine 25mcg/0.5mL vial/Syr IM ONE (09:00)
[2020-03-22] MEDS ORDERED: PHARMACY GLYCEMIC MGMT CONSULT STA (09:12)
[2020-03-22] MEDS ORDERED: PHARMACY GLYCEMIC MGMT CONSULT PRN (09:15)
--- NOTE | 2020-03-22 09:44 | Critical Care Progress Note ---
Date of Service March 22, 2020 Assessment & Plan (1) Respiratory failure: Reason Critically Ill: 69y/o M who resides at the [facility] and has a past medical history of insulin-dependent diabetes type 1, hypertension, bipolar disorder who was brought to the emergency department for u nresponsiveness. Neuro: - intubated and sedated with Versed and Fentanyl - Metabolic encephalopathy Cardiac/Vascular: - History paroxysmal atrial fibrillation -holding Eliquis, started on low dose Heparin drip -NSTEMI -Likely type II MA with DKA -2D echo shows good ejection fraction without wall motion abnormality -Cardiology on board Respiratory: - Acute respiratory failure -continue ventilation given DKA GI/Nutrition: - NPO - Protonix daily Renal/Lytes: - DKA: Initial volume expansion with 2 L bicarb and Normosol infusions -Continue with insulin drip until anion gap closes -Decreasing blood glucose no more than 100 in an hour -Replace potassium IV when potassium level between 3.3-5.3 -BMP every 4 hours -Continue with IV fluids -CHIVO -Monitor BUN/creatinine -Avoid nephrotoxic medications -Strict ins and outs ENDO: - ICU hyperglycemia protocol - DKA protocol -weaning insulin drip per protocol with planned transition off drip as clinically improves Heme: - Anemia -Appears to be at baseline - Leukocytosis -Unclear etiology --> likely from DKA -Mild elevation of procalcitonin ID: - History of COVID-19 on previous hospitalization - COVID-19 negative on 03/22 - Afebrile, no obvious concern for infectious etiology given report of refusing insulin -Given Rocephin in emergency department -Start Zosyn given there is left lower lobe atelectasis/aspiration pneumonia -Follow-up blood culture and septic work-up. Lines/IV access: - PIV - Art line DVT prophylaxis: - low dose Heparin drip (2) Anemia: (3) DKA (diabetic ketoacidoses): (4) CHIVO (acute kidney injury): (5) Paroxysmal atrial fibrillation with RVR: (6) Metabolic encephalopathy: Admission and Anticipated Discharge Date Admission Date: March 21, 2020 Supervising Physician Co-Signing Physician Notes Marco Garcia was the resident-physician during care of patient. I separately evaluated patient for britton portions of the history and the exam. I was present during the critical portion of medical decision making, and I discussed the case with the resident. I generally agree with the findings and plan except for any additions/exceptions noted. Patient seen and examined at bedside. Was on midazolam 2 at the time of examination. Patient was breathing over the vent. ABG from the morning showed alkalotic pH. This is likely from the bicarb that the patient got overnight on top of hyperventilation. Went down on respiratory rate to 14 which was further reduced to 12. Patient is hemodynamically stable. Mentally he is not responding to command. Patient did have ST depressions appreciated on the lateral leads which was new compared to the EKG done December 2019. Troponin was repeated which came out to be 13. It seems to be patient has NSTEMI. Repeat EKG did not show any significant ST depressions. 2D echo was done which showed good ejection fraction and no wall abnormalities. Cardiology is on board. Heparin drip while the patient is in ICU for his A. fib. Zosyn for possible aspiration pneumonia with elevated procalcitonin. Patient had history of Covid-19 positivity back in December 2019. Covid-19 on this admission is negative. Patient has left BKA. Discontinue midazolam and start propofol if need be to keep RASS -1. Electrolytes are being replaced as per the DKA protocol. I have personally spent 41 minutes of critical care time in the direct management of this patient. This is a life/limb threatening event. This includes time spent evaluating patient, direct bedside care, chart review, placing orders, interpretation of diagnostic studies, discussion with consultants, patient, and/or family members regarding treatment decisions, as well as other required patient management activities. This time is exclusive of all separately billable procedures, and teaching time and separate from and in addition to any other critical care service time. Subjective Patient had no acute events overnight, continues to remain sedated and intubated this morning. Review of Systems Review of Systems: Unobtainable due to endotracheal tube Physical Exam Constitutional: WD/WN, vitals as above Eyes: PERRL, conjunctivae normal, anicteric sclerae ENMT: external ear and nose normal, oropharynx normal Respiratory: no labored breathing (intubated), no retractions and does not use accessory muscles Auscultation: + diminished lung sounds and + crackles (fine R>L); no rales, no rhonchi and no wheezes Cardiovascular: Rate/Rhythm: regular rate and regular rhythm Heart Sounds: no gallop, no murmur and no cardiac rub Vessels: normal peripheral pulses Gastrointestinal (Abdomen): normal bowel sounds, soft, nontender, no hepatosplenomegaly Skin: no rashes, warm and dry Neurologic: intubated and sedated with Versed, 2+ patellar reflexes, negative Babinski Lymphatic: no cervical lymphadenopathy Results & Data Results & Data ([facility]) Vital Signs (Past 12 Hours) Vital Signs Temp Pulse Resp BP Pulse Ox 03/22/20 08:30 93 H 100 03/22/20 08:00 94 H 100 03/22/20 07:30 93 H 100 03/22/20 07:14 94 H 18 100 03/22/20 07:00 97 H 99 03/22/20 06:45 95 H 100 03/22/20 06:00 95 H 100 03/22/20 05:40 99 H 19 99 03/22/20 05:00 99 H 99 03/22/20 04:00 37.0 C 95 H 106/25 L 100 03/22/20 03:00 95 H 100 03/22/20 02:37 95 H 103/40 L 100 03/22/20 02:00 95 H 100 03/22/20 01:59 90 27 H 100 03/22/20 01:00 96 H 100 03/22/20 00:00 97 H 95/28 L 100 03/21/20 23:59 99 H 106/39 L 100 03/21/20 23:31 99 H 27 H 100 03/21/20 23:00 100 H 100 03/21/20 22:00 97 H 100 Laboratory Results 03/22/20 03/22/20 03/22/20 Range/Units Unknown 09:45 09:09 WBC (4.8-10.8) K/uL RBC (4.7-6.1) M/uL Hgb (14.0-18.0) g/dL Hct (42-52) % MCV (80-100) fL MCH (25-34) pg MCHC (32-36) g/dL RDW Std Deviation (36.4-46.3) fL RDW Coeff of Jace (11.5-14.5) % Plt Count (130-400) K/uL MPV (7.4-10.4) fL Immature Gran % (Auto) % Neut % (Auto) % Lymph % (Auto) % [place] % (Auto) % Eos % (Auto) % Baso % (Auto) % Neut # (Auto) (1.4-6.5) K/uL Lymph # (Auto) (1.2-3.4) K/uL [place] # (Auto) (0.11-0.59) K/uL Eos # (Auto) (0-0.5) K/uL Baso # (Auto) (0-0.2) K/uL Immature Gran # (Auto) (0.00-0.02) K/uL PT (9.0-12.0) Seconds INR (0.9-1.1) APTT (21.0-31.0) Seconds PTT Ratio Sample Site POC pH (7.35-7.45) POC pCO2 (35-46) mmHg POC pO2 (80-95) mmHg POC HCO3 (19-24) rene/L POC Total CO2 (24-31) mmol/L POC Base Excess (-9-1.8) rene/L ABG pH ABG pCO2 ABG pO2 ABG HCO3 POC ABG O2 Sat (90-95) % ABG O2 Saturation ABG Base Excess Bharat Test VBG pH (7.36-7.41) VBG pCO2 (38-50) mmHg VBG pO2 mmHg VBG HCO3 mmol/L VBG O2 Saturation % VBG Base Excess mEq/L Barometric Pressure Oxygen Given O2 Delivery Device POC O2 Rate Minute Ventilation POC FiO2 % Tidal Volume PEEP Sodium (136-145) mmol/L Potassium (3.5-5.1) mmol/L Chloride (98-107) mmol/L Carbon Dioxide (21-32) mmol/L Anion Gap (3-11) BUN (7-18) mg/dl Creatinine (0.6-1.4) mg/dl Est Cr Clr Drug Dosing Est GFR ( Amer) Est GFR (Non-Af Amer) BUN/Creatinine Ratio (10-20) Glucose (70-99) mg/dl POC Glucose 107 H 104 H (70-99) mg/dl Estimat Average Glucose mg/dl Hemoglobin A1c (4.5-5.6) % Lactate (0.4-2.0) mmol/L Calcium (8.5-10.1) mg/dl Phosphorus (2.5-4.9) mg/dl Magnesium (1.8-2.4) mg/dl Total Bilirubin (0.2-1) mg/dl AST (15-37) U/L ALT (12-78) U/L Alkaline Phosphatase (45-117) U/L Troponin I (0-0.045) ng/ml Total Protein (6.4-8.2) gm/dl Albumin (3.4-5.0) gm/dl Globulin (2.5-4.0) gm/dl Albumin/Globulin Ratio (0.9-2) Beta-Hydroxybutyric Acd (0.2-2.81) mg/dl Procalcitonin (0-0.5) ng/ml Urine Color Yellow Urine Appearance Cloudy A (Clear) Urine pH 5.0 (4.5-7.5) Ur Specific [place] 1.028 (1.000-1.030) Urine Protein Negative (Negative) Urine Glucose (UA) 3+ H (Negative) Urine Ketones 4+ H (Negative) Urine Blood Negative (Negative) Urine Nitrite Negative (Negative) Urine Bilirubin Negative (Negative) Urine Urobilinogen Negative (Negative) Ur Leukocyte Esterase Negative (Negative) Urine WBC (Auto) 1-5 (0-5) /hpf Urine RBC (Auto) 10-30 H (0-4) /hpf U Hyaline Cast (Auto) 5-10 H (0-5) /lpf U Epithel Cells (Auto) 10-20 H (0-5) /lpf Urine Bacteria (Auto) Negative (Negative) Nasal Screen MRSA (PCR) (Negative) COVID-19 Eval Order COVID-19 PCR (Negative) 03/22/20 03/22/20 03/22/20 Range/Units 08:32 07:40 07:40 WBC (4.8-10.8) K/uL RBC (4.7-6.1) M/uL Hgb (14.0-18.0) g/dL Hct (42-52) % MCV (80-100) fL MCH (25-34) pg MCHC (32-36) g/dL RDW Std Deviation (36.4-46.3) fL RDW Coeff of Jace (11.5-14.5) % Plt Count (130-400) K/uL MPV (7.4-10.4) fL Immature Gran % (Auto) % Neut % (Auto) % Lymph % (Auto) % [place] % (Auto) % Eos % (Auto) % Baso % (Auto) % Neut # (Auto) (1.4-6.5) K/uL Lymph # (Auto) (1.2-3.4) K/uL [place] # (Auto) (0.11-0.59) K/uL Eos # (Auto) (0-0.5) K/uL Baso # (Auto) (0-0.2) K/uL Immature Gran # (Auto) (0.00-0.02) K/uL PT (9.0-12.0) Seconds INR (0.9-1.1) APTT (21.0-31.0) Seconds PTT Ratio Sample Site POC pH (7.35-7.45) POC pCO2 (35-46) mmHg POC pO2 (80-95) mmHg POC HCO3 (19-24) rene/L POC Total CO2 (24-31) mmol/L POC Base Excess (-9-1.8) rene/L ABG pH ABG pCO2 ABG pO2 ABG HCO3 POC ABG O2 Sat (90-95) % ABG O2 Saturation ABG Base Excess Bharat Test VBG pH (7.36-7.41) VBG pCO2 (38-50) mmHg VBG pO2 mmHg VBG HCO3 mmol/L VBG O2 Saturation % VBG Base Excess mEq/L Barometric Pressure Oxygen Given O2 Delivery Device POC O2 Rate Minute Ventilation POC FiO2 % Tidal Volume PEEP Sodium (136-145) mmol/L Potassium (3.5-5.1) mmol/L Chloride (98-107) mmol/L Carbon Dioxide (21-32) mmol/L Anion Gap (3-11) BUN (7-18) mg/dl Creatinine (0.6-1.4) mg/dl Est Cr Clr Drug Dosing Est GFR ( Amer) Est GFR (Non-Af Amer) BUN/Creatinine Ratio (10-20) Glucose (70-99) mg/dl POC Glucose 116 H (70-99) mg/dl Estimat Average Glucose mg/dl Hemoglobin A1c (4.5-5.6) % Lactate (0.4-2.0) mmol/L Calcium (8.5-10.1) mg/dl Phosphorus (2.5-4.9) mg/dl Magnesium (1.8-2.4) mg/dl Total Bilirubin (0.2-1) mg/dl AST (15-37) U/L ALT (12-78) U/L Alkaline Phosphatase (45-117) U/L Troponin I (0-0.045) ng/ml Total Protein (6.4-8.2) gm/dl Albumin (3.4-5.0) gm/dl Globulin (2.5-4.0) gm/dl Albumin/Globulin Ratio (0.9-2) Beta-Hydroxybutyric Acd (0.2-2.81) mg/dl Procalcitonin (0-0.5) ng/ml Urine Color Urine Appearance (Clear) Urine pH (4.5-7.5) Ur Specific [place] (1.000-1.030) Urine Protein (Negative) Urine Glucose (UA) (Negative) Urine Ketones (Negative) Urine Blood (Negative) Urine Nitrite (Negative) Urine Bilirubin (Negative) Urine Urobilinogen (Negative) Ur Leukocyte Esterase (Negative) Urine WBC (Auto) (0-5) /hpf Urine RBC (Auto) (0-4) /hpf U Hyaline Cast (Auto) (0-5) /lpf U Epithel Cells (Auto) (0-5) /lpf Urine Bacteria (Auto) (Negative) Nasal Screen MRSA (PCR) (Negative) COVID-19 Eval Order Covid19 Done at [facility] COVID-19 PCR NEGATIVE (Negative) 03/22/20 03/22/20 03/22/20 Range/Units 07:31 06:47 06:47 WBC 13.18 H (4.8-10.8) K/uL RBC 3.22 L (4.7-6.1) M/uL Hgb 9.4 L (14.0-18.0) g/dL Hct 27.0 L (42-52) % MCV 83.9 D (80-100) fL MCH 29.2 (25-34) pg MCHC 34.8 D (32-36) g/dL RDW Std Deviation 44.2 (36.4-46.3) fL RDW Coeff of Jace 14.2 (11.5-14.5) % Plt Count 225 (130-400) K/uL MPV 9.2 (7.4-10.4) fL Immature Gran % (Auto) 0.2 % Neut % (Auto) 73.4 % Lymph % (Auto) 14.5 % [place] % (Auto) 11.9 % Eos % (Auto) 0.0 % Baso % (Auto) 0.0 % Neut # (Auto) 9.68 H (1.4-6.5) K/uL Lymph # (Auto) 1.91 (1.2-3.4) K/uL [place] # (Auto) 1.57 H (0.11-0.59) K/uL Eos # (Auto) 0.00 (0-0.5) K/uL Baso # (Auto) 0.00 (0-0.2) K/uL Immature Gran # (Auto) 0.02 (0.00-0.02) K/uL PT (9.0-12.0) Seconds INR (0.9-1.1) APTT (21.0-31.0) Seconds PTT Ratio Sample Site POC pH (7.35-7.45) POC pCO2 (35-46) mmHg POC pO2 (80-95) mmHg POC HCO3 (19-24) rene/L POC Total CO2 (24-31) mmol/L POC Base Excess (-9-1.8) rene/L ABG pH ABG pCO2 ABG pO2 ABG HCO3 POC ABG O2 Sat (90-95) % ABG O2 Saturation ABG Base Excess Bharat Test VBG pH (7.36-7.41) VBG pCO2 (38-50) mmHg VBG pO2 mmHg VBG HCO3 mmol/L VBG O2 Saturation % VBG Base Excess mEq/L Barometric Pressure Oxygen Given O2 Delivery Device POC O2 Rate Minute Ventilation POC FiO2 % Tidal Volume PEEP Sodium (136-145) mmol/L Potassium (3.5-5.1) mmol/L Chloride (98-107) mmol/L Carbon Dioxide (21-32) mmol/L Anion Gap (3-11) BUN (7-18) mg/dl Creatinine (0.6-1.4) mg/dl Est Cr Clr Drug Dosing Est GFR ( Amer) Est GFR (Non-Af Amer) BUN/Creatinine Ratio (10-20) Glucose (70-99) mg/dl POC Glucose 136 H (70-99) mg/dl Estimat Average Glucose mg/dl Hemoglobin A1c (4.5-5.6) % Lactate (0.4-2.0) mmol/L Calcium (8.5-10.1) mg/dl Phosphorus (2.5-4.9) mg/dl Magnesium (1.8-2.4) mg/dl Total Bilirubin (0.2-1) mg/dl AST (15-37) U/L ALT (12-78) U/L Alkaline Phosphatase (45-117) U/L Troponin I 13.700 H* (0-0.045) ng/ml Total Protein (6.4-8.2) gm/dl Albumin (3.4-5.0) gm/dl Globulin (2.5-4.0) gm/dl Albumin/Globulin Ratio (0.9-2) Beta-Hydroxybutyric Acd (0.2-2.81) mg/dl Procalcitonin (0-0.5) ng/ml Urine Color Urine Appearance (Clear) Urine pH (4.5-7.5) Ur Specific [place] (1.000-1.030) Urine Protein (Negative) Urine Glucose (UA) (Negative) Urine Ketones (Negative) Urine Blood (Negative) Urine Nitrite (Negative) Urine Bilirubin (Negative) Urine Urobilinogen (Negative) Ur Leukocyte Esterase (Negative) Urine WBC (Auto) (0-5) /hpf Urine RBC (Auto) (0-4) /hpf U Hyaline Cast (Auto) (0-5) /lpf U Epithel Cells (Auto) (0-5) /lpf Urine Bacteria (Auto) (Negative) Nasal Screen MRSA (PCR) (Negative) COVID-19 Eval Order COVID-19 PCR (Negative) 03/22/20 03/22/20 03/22/20 Range/Units 06:47 06:47 06:17 WBC (4.8-10.8) K/uL RBC (4.7-6.1) M/uL Hgb (14.0-18.0) g/dL Hct (42-52) % MCV (80-100) fL MCH (25-34) pg MCHC (32-36) g/dL RDW Std Deviation (36.4-46.3) fL RDW Coeff of Jace (11.5-14.5) % Plt Count (130-400) K/uL MPV (7.4-10.4) fL Immature Gran % (Auto) % Neut % (Auto) % Lymph % (Auto) % [place] % (Auto) % Eos % (Auto) % Baso % (Auto) % Neut # (Auto) (1.4-6.5) K/uL Lymph # (Auto) (1.2-3.4) K/uL [place] # (Auto) (0.11-0.59) K/uL Eos # (Auto) (0-0.5) K/uL Baso # (Auto) (0-0.2) K/uL Immature Gran # (Auto) (0.00-0.02) K/uL PT (9.0-12.0) Seconds INR (0.9-1.1) APTT (21.0-31.0) Seconds PTT Ratio Sample Site POC pH (7.35-7.45) POC pCO2 (35-46) mmHg POC pO2 (80-95) mmHg POC HCO3 (19-24) rene/L POC Total CO2 (24-31) mmol/L POC Base Excess (-9-1.8) rene/L ABG pH ABG pCO2 ABG pO2 ABG HCO3 POC ABG O2 Sat (90-95) % ABG O2 Saturation ABG Base Excess Bharat Test VBG pH 7.61 H (7.36-7.41) VBG pCO2 (38-50) mmHg VBG pO2 mmHg VBG HCO3 mmol/L VBG O2 Saturation % VBG Base Excess mEq/L Barometric Pressure Oxygen Given O2 Delivery Device POC O2 Rate Minute Ventilation POC FiO2 % Tidal Volume PEEP Sodium 144 (136-145) mmol/L Potassium 3.3 L (3.5-5.1) mmol/L Chloride 107 (98-107) mmol/L Carbon Dioxide 27 (21-32) mmol/L Anion Gap 10.0 (3-11) BUN 41 H (7-18) mg/dl Creatinine 1.87 H (0.6-1.4) mg/dl Est Cr Clr Drug Dosing 34.1 Est GFR ( Amer) 41.9 Est GFR (Non-Af Amer) 36.1 BUN/Creatinine Ratio 21.8 H (10-20) Glucose 139 H (70-99) mg/dl POC Glucose 147 H (70-99) mg/dl Estimat Average Glucose mg/dl Hemoglobin A1c (4.5-5.6) % Lactate (0.4-2.0) mmol/L Calcium 8.6 (8.5-10.1) mg/dl Phosphorus 0.7 L* (2.5-4.9) mg/dl Magnesium 2.1 (1.8-2.4) mg/dl Total Bilirubin (0.2-1) mg/dl AST (15-37) U/L ALT (12-78) U/L Alkaline Phosphatase (45-117) U/L Troponin I (0-0.045) ng/ml Total Protein (6.4-8.2) gm/dl Albumin (3.4-5.0) gm/dl Globulin (2.5-4.0) gm/dl Albumin/Globulin Ratio (0.9-2) Beta-Hydroxybutyric Acd (0.2-2.81) mg/dl Procalcitonin (0-0.5) ng/ml Urine Color Urine Appearance (Clear) Urine pH (4.5-7.5) Ur Specific [place] (1.000-1.030) Urine Protein (Negative) Urine Glucose (UA) (Negative) Urine Ketones (Negative) Urine Blood (Negative) Urine Nitrite (Negative) Urine Bilirubin (Negative) Urine Urobilinogen (Negative) Ur Leukocyte Esterase (Negative) Urine WBC (Auto) (0-5) /hpf Urine RBC (Auto) (0-4) /hpf U Hyaline Cast (Auto) (0-5) /lpf U Epithel Cells (Auto) (0-5) /lpf Urine Bacteria (Auto) (Negative) Nasal Screen MRSA (PCR) (Negative) COVID-19 Eval Order COVID-19 PCR (Negative) 03/22/20 03/22/20 03/22/20 Range/Units 05:27 04:55 02:38 WBC (4.8-10.8) K/uL RBC (4.7-6.1) M/uL Hgb (14.0-18.0) g/dL Hct (42-52) % MCV (80-100) fL MCH (25-34) pg MCHC (32-36) g/dL RDW Std Deviation (36.4-46.3) fL RDW Coeff of Jace (11.5-14.5) % Plt Count (130-400) K/uL MPV (7.4-10.4) fL Immature Gran % (Auto) % Neut % (Auto) % Lymph % (Auto) % [place] % (Auto) % Eos % (Auto) % Baso % (Auto) % Neut # (Auto) (1.4-6.5) K/uL Lymph # (Auto) (1.2-3.4) K/uL [place] # (Auto) (0.11-0.59) K/uL Eos # (Auto) (0-0.5) K/uL Baso # (Auto) (0-0.2) K/uL Immature Gran # (Auto) (0.00-0.02) K/uL PT (9.0-12.0) Seconds INR (0.9-1.1) APTT (21.0-31.0) Seconds PTT Ratio Sample Site Art Line POC pH 7.71 H* (7.35-7.45) POC pCO2 19 L (35-46) mmHg POC pO2 60 L (80-95) mmHg POC HCO3 25 H (19-24) rene/L POC Total CO2 25 (24-31) mmol/L POC Base Excess 5.0 H (-9-1.8) rene/L ABG pH ABG pCO2 ABG pO2 ABG HCO3 POC ABG O2 Sat 96.0 H (90-95) % ABG O2 Saturation ABG Base Excess Bharat Test NA VBG pH (7.36-7.41) VBG pCO2 (38-50) mmHg VBG pO2 mmHg VBG HCO3 mmol/L VBG O2 Saturation % VBG Base Excess mEq/L Barometric Pressure Oxygen Given O2 Delivery Device Ventilator POC O2 Rate 26 Minute Ventilation 10.4 POC FiO2 28 % Tidal Volume 400 PEEP 5 Sodium (136-145) mmol/L Potassium (3.5-5.1) mmol/L Chloride (98-107) mmol/L Carbon Dioxide (21-32) mmol/L Anion Gap (3-11) BUN (7-18) mg/dl Creatinine (0.6-1.4) mg/dl Est Cr Clr Drug Dosing Est GFR ( Amer) Est GFR (Non-Af Amer) BUN/Creatinine Ratio (10-20) Glucose (70-99) mg/dl POC Glucose 175 H 300 H (70-99) mg/dl Estimat Average Glucose mg/dl Hemoglobin A1c (4.5-5.6) % Lactate (0.4-2.0) mmol/L Calcium (8.5-10.1) mg/dl Phosphorus (2.5-4.9) mg/dl Magnesium (1.8-2.4) mg/dl Total Bilirubin (0.2-1) mg/dl AST (15-37) U/L ALT (12-78) U/L Alkaline Phosphatase (45-117) U/L Troponin I (0-0.045) ng/ml Total Protein (6.4-8.2) gm/dl Albumin (3.4-5.0) gm/dl Globulin (2.5-4.0) gm/dl Albumin/Globulin Ratio (0.9-2) Beta-Hydroxybutyric Acd (0.2-2.81) mg/dl Procalcitonin (0-0.5) ng/ml Urine Color Urine Appearance (Clear) Urine pH (4.5-7.5) Ur Specific [place] (1.000-1.030) Urine Protein (Negative) Urine Glucose (UA) (Negative) Urine Ketones (Negative) Urine Blood (Negative) Urine Nitrite (Negative) Urine Bilirubin (Negative) Urine Urobilinogen (Negative) Ur Leukocyte Esterase (Negative) Urine WBC (Auto) (0-5) /hpf Urine RBC (Auto) (0-4) /hpf U Hyaline Cast (Auto) (0-5) /lpf U Epithel Cells (Auto) (0-5) /lpf Urine Bacteria (Auto) (Negative) Nasal Screen MRSA (PCR) (Negative) COVID-19 Eval Order COVID-19 PCR (Negative) 03/22/20 03/22/20 03/22/20 Range/Units 02:28 02:28 02:28 WBC (4.8-10.8) K/uL RBC (4.7-6.1) M/uL Hgb (14.0-18.0) g/dL Hct (42-52) % MCV (80-100) fL MCH (25-34) pg MCHC (32-36) g/dL RDW Std Deviation (36.4-46.3) fL RDW Coeff of Jace (11.5-14.5) % Plt Count (130-400) K/uL MPV (7.4-10.4) fL Immature Gran % (Auto) % Neut % (Auto) % Lymph % (Auto) % [place] % (Auto) % Eos % (Auto) % Baso % (Auto) % Neut # (Auto) (1.4-6.5) K/uL Lymph # (Auto) (1.2-3.4) K/uL [place] # (Auto) (0.11-0.59) K/uL Eos # (Auto) (0-0.5) K/uL Baso # (Auto) (0-0.2) K/uL Immature Gran # (Auto) (0.00-0.02) K/uL PT (9.0-12.0) Seconds INR (0.9-1.1) APTT (21.0-31.0) Seconds PTT Ratio Sample Site POC pH (7.35-7.45) POC pCO2 (35-46) mmHg POC pO2 (80-95) mmHg POC HCO3 (19-24) rene/L POC Total CO2 (24-31) mmol/L POC Base Excess (-9-1.8) rene/L ABG pH ABG pCO2 ABG pO2 ABG HCO3 POC ABG O2 Sat (90-95) % ABG O2 Saturation ABG Base Excess Bharat Test VBG pH 7.65 H (7.36-7.41) VBG pCO2 (38-50) mmHg VBG pO2 mmHg VBG HCO3 mmol/L VBG O2 Saturation % VBG Base Excess mEq/L Barometric Pressure Oxygen Given O2 Delivery Device POC O2 Rate Minute Ventilation POC FiO2 % Tidal Volume PEEP Sodium 143 (136-145) mmol/L Potassium 3.0 L D (3.5-5.1) mmol/L Chloride 105 (98-107) mmol/L Carbon Dioxide 26 (21-32) mmol/L Anion Gap 12.0 H (3-11) BUN 44 H (7-18) mg/dl Creatinine 2.08 H (0.6-1.4) mg/dl Est Cr Clr Drug Dosing 30.7 Est GFR ( Amer) 36.8 Est GFR (Non-Af Amer) 31.8 BUN/Creatinine Ratio 21.4 H (10-20) Glucose 289 H (70-99) mg/dl POC Glucose (70-99) mg/dl Estimat Average Glucose 266 mg/dl Hemoglobin A1c 10.9 H (4.5-5.6) % Lactate (0.4-2.0) mmol/L Calcium 8.0 L (8.5-10.1) mg/dl Phosphorus 0.4 L* D (2.5-4.9) mg/dl Magnesium 2.2 (1.8-2.4) mg/dl Total Bilirubin (0.2-1) mg/dl AST (15-37) U/L ALT (12-78) U/L Alkaline Phosphatase (45-117) U/L Troponin I (0-0.045) ng/ml Total Protein (6.4-8.2) gm/dl Albumin (3.4-5.0) gm/dl Globulin (2.5-4.0) gm/dl Albumin/Globulin Ratio (0.9-2) Beta-Hydroxybutyric Acd (0.2-2.81) mg/dl Procalcitonin (0-0.5) ng/ml Urine Color Urine Appearance (Clear) Urine pH (4.5-7.5) Ur Specific [place] (1.000-1.030) Urine Protein (Negative) Urine Glucose (UA) (Negative) Urine Ketones (Negative) Urine Blood (Negative) Urine Nitrite (Negative) Urine Bilirubin (Negative) Urine Urobilinogen (Negative) Ur Leukocyte Esterase (Negative) Urine WBC (Auto) (0-5) /hpf Urine RBC (Auto) (0-4) /hpf U Hyaline Cast (Auto) (0-5) /lpf U Epithel Cells (Auto) (0-5) /lpf Urine Bacteria (Auto) (Negative) Nasal Screen MRSA (PCR) (Negative) COVID-19 Eval Order COVID-19 PCR (Negative) 03/22/20 03/22/20 03/21/20 Range/Units 01:53 00:53 23:42 WBC (4.8-10.8) K/uL RBC (4.7-6.1) M/uL Hgb (14.0-18.0) g/dL Hct (42-52) % MCV (80-100) fL MCH (25-34) pg MCHC (32-36) g/dL RDW Std Deviation (36.4-46.3) fL RDW Coeff of Jace (11.5-14.5) % Plt Count (130-400) K/uL MPV (7.4-10.4) fL Immature Gran % (Auto) % Neut % (Auto) % Lymph % (Auto) % [place] % (Auto) % Eos % (Auto) % Baso % (Auto) % Neut # (Auto) (1.4-6.5) K/uL Lymph # (Auto) (1.2-3.4) K/uL [place] # (Auto) (0.11-0.59) K/uL Eos # (Auto) (0-0.5) K/uL Baso # (Auto) (0-0.2) K/uL Immature Gran # (Auto) (0.00-0.02) K/uL PT (9.0-12.0) Seconds INR (0.9-1.1) APTT (21.0-31.0) Seconds PTT Ratio Sample Site POC pH (7.35-7.45) POC pCO2 (35-46) mmHg POC pO2 (80-95) mmHg POC HCO3 (19-24) rene/L POC Total CO2 (24-31) mmol/L POC Base Excess (-9-1.8) rene/L ABG pH ABG pCO2 ABG pO2 ABG HCO3 POC ABG O2 Sat (90-95) % ABG O2 Saturation ABG Base Excess Bharat Test VBG pH (7.36-7.41) VBG pCO2 (38-50) mmHg VBG pO2 mmHg VBG HCO3 mmol/L VBG O2 Saturation % VBG Base Excess mEq/L Barometric Pressure Oxygen Given O2 Delivery Device POC O2 Rate Minute Ventilation POC FiO2 % Tidal Volume PEEP Sodium (136-145) mmol/L Potassium (3.5-5.1) mmol/L Chloride (98-107) mmol/L Carbon Dioxide (21-32) mmol/L Anion Gap (3-11) BUN (7-18) mg/dl Creatinine (0.6-1.4) mg/dl Est Cr Clr Drug Dosing Est GFR ( Amer) Est GFR (Non-Af Amer) BUN/Creatinine Ratio (10-20) Glucose (70-99) mg/dl POC Glucose 330 H* 378 H* 427 H* (70-99) mg/dl Estimat Average Glucose mg/dl Hemoglobin A1c (4.5-5.6) % Lactate (0.4-2.0) mmol/L Calcium (8.5-10.1) mg/dl Phosphorus (2.5-4.9) mg/dl Magnesium (1.8-2.4) mg/dl Total Bilirubin (0.2-1) mg/dl AST (15-37) U/L ALT (12-78) U/L Alkaline Phosphatase (45-117) U/L Troponin I (0-0.045) ng/ml Total Protein (6.4-8.2) gm/dl Albumin (3.4-5.0) gm/dl Globulin (2.5-4.0) gm/dl Albumin/Globulin Ratio (0.9-2) Beta-Hydroxybutyric Acd (0.2-2.81) mg/dl Procalcitonin (0-0.5) ng/ml Urine Color Urine Appearance (Clear) Urine pH (4.5-7.5) Ur Specific [place] (1.000-1.030) Urine Protein (Negative) Urine Glucose (UA) (Negative) Urine Ketones (Negative) Urine Blood (Negative) Urine Nitrite (Negative) Urine Bilirubin (Negative) Urine Urobilinogen (Negative) Ur Leukocyte Esterase (Negative) Urine WBC (Auto) (0-5) /hpf Urine RBC (Auto) (0-4) /hpf U Hyaline Cast (Auto) (0-5) /lpf U Epithel Cells (Auto) (0-5) /lpf Urine Bacteria (Auto) (Negative) Nasal Screen MRSA (PCR) (Negative) COVID-19 Eval Order COVID-19 PCR (Negative) 03/21/20 03/21/20 03/21/20 Range/Units 22:19 22:19 20:24 WBC (4.8-10.8) K/uL RBC (4.7-6.1) M/uL Hgb (14.0-18.0) g/dL Hct (42-52) % MCV (80-100) fL MCH (25-34) pg MCHC (32-36) g/dL RDW Std Deviation (36.4-46.3) fL RDW Coeff of Jace (11.5-14.5) % Plt Count (130-400) K/uL MPV (7.4-10.4) fL Immature Gran % (Auto) % Neut % (Auto) % Lymph % (Auto) % [place] % (Auto) % Eos % (Auto) % Baso % (Auto) % Neut # (Auto) (1.4-6.5) K/uL Lymph # (Auto) (1.2-3.4) K/uL [place] # (Auto) (0.11-0.59) K/uL Eos # (Auto) (0-0.5) K/uL Baso # (Auto) (0-0.2) K/uL Immature Gran # (Auto) (0.00-0.02) K/uL PT (9.0-12.0) Seconds INR (0.9-1.1) APTT (21.0-31.0) Seconds PTT Ratio Sample Site POC pH (7.35-7.45) POC pCO2 (35-46) mmHg POC pO2 (80-95) mmHg POC HCO3 (19-24) rene/L POC Total CO2 (24-31) mmol/L POC Base Excess (-9-1.8) rene/L ABG pH 7.45 ABG pCO2 30 L ABG pO2 120 H ABG HCO3 20 POC ABG O2 Sat (90-95) % ABG O2 Saturation 98.7 H ABG Base Excess -3.2 Bharat Test POS VBG pH Cancelled (7.36-7.41) VBG pCO2 (38-50) mmHg VBG pO2 mmHg VBG HCO3 mmol/L VBG O2 Saturation % VBG Base Excess mEq/L Barometric Pressure 734.2 Oxygen Given FIO2 40% O2 Delivery Device POC O2 Rate Minute Ventilation POC FiO2 % Tidal Volume PEEP Sodium 139 (136-145) mmol/L Potassium 3.7 D (3.5-5.1) mmol/L Chloride 101 (98-107) mmol/L Carbon Dioxide 20 L (21-32) mmol/L Anion Gap 18.0 H (3-11) BUN 50 H (7-18) mg/dl Creatinine 2.27 H D (0.6-1.4) mg/dl Est Cr Clr Drug Dosing 28.1 Est GFR ( Amer) 33.1 Est GFR (Non-Af Amer) 28.6 BUN/Creatinine Ratio 22.0 H (10-20) Glucose 497 H* 646 H* (70-99) mg/dl POC Glucose (70-99) mg/dl Estimat Average Glucose mg/dl Hemoglobin A1c (4.5-5.6) % Lactate (0.4-2.0) mmol/L Calcium 8.2 L (8.5-10.1) mg/dl Phosphorus 2.8 D (2.5-4.9) mg/dl Magnesium 2.5 H (1.8-2.4) mg/dl Total Bilirubin (0.2-1) mg/dl AST (15-37) U/L ALT (12-78) U/L Alkaline Phosphatase (45-117) U/L Troponin I (0-0.045) ng/ml Total Protein (6.4-8.2) gm/dl Albumin (3.4-5.0) gm/dl Globulin (2.5-4.0) gm/dl Albumin/Globulin Ratio (0.9-2) Beta-Hydroxybutyric Acd 74.17 H 94.15 H (0.2-2.81) mg/dl Procalcitonin (0-0.5) ng/ml Urine Color Urine Appearance (Clear) Urine pH (4.5-7.5) Ur Specific [place] (1.000-1.030) Urine Protein (Negative) Urine Glucose (UA) (Negative) Urine Ketones (Negative) Urine Blood (Negative) Urine Nitrite (Negative) Urine Bilirubin (Negative) Urine Urobilinogen (Negative) Ur Leukocyte Esterase (Negative) Urine WBC (Auto) (0-5) /hpf Urine RBC (Auto) (0-4) /hpf U Hyaline Cast (Auto) (0-5) /lpf U Epithel Cells (Auto) (0-5) /lpf Urine Bacteria (Auto) (Negative) Nasal Screen MRSA (PCR) (Negative) COVID-19 Eval Order COVID-19 PCR (Negative) 03/21/20 03/21/20 03/21/20 Range/Units 20:12 18:44 18:23 WBC (4.8-10.8) K/uL RBC (4.7-6.1) M/uL Hgb (14.0-18.0) g/dL Hct (42-52) % MCV (80-100) fL MCH (25-34) pg MCHC (32-36) g/dL RDW Std Deviation (36.4-46.3) fL RDW Coeff of Jace (11.5-14.5) % Plt Count (130-400) K/uL MPV (7.4-10.4) fL Immature Gran % (Auto) % Neut % (Auto) % Lymph % (Auto) % [place] % (Auto) % Eos % (Auto) % Baso % (Auto) % Neut # (Auto) (1.4-6.5) K/uL Lymph # (Auto) (1.2-3.4) K/uL [place] # (Auto) (0.11-0.59) K/uL Eos # (Auto) (0-0.5) K/uL Baso # (Auto) (0-0.2) K/uL Immature Gran # (Auto) (0.00-0.02) K/uL PT (9.0-12.0) Seconds INR (0.9-1.1) APTT (21.0-31.0) Seconds PTT Ratio Sample Site POC pH (7.35-7.45) POC pCO2 (35-46) mmHg POC pO2 (80-95) mmHg POC HCO3 (19-24) rene/L POC Total CO2 (24-31) mmol/L POC Base Excess (-9-1.8) rene/L ABG pH ABG pCO2 ABG pO2 ABG HCO3 POC ABG O2 Sat (90-95) % ABG O2 Saturation ABG Base Excess Bharat Test VBG pH 7.06 L (7.36-7.41) VBG pCO2 (38-50) mmHg VBG pO2 mmHg VBG HCO3 mmol/L VBG O2 Saturation % VBG Base Excess mEq/L Barometric Pressure Oxygen Given O2 Delivery Device POC O2 Rate Minute Ventilation POC FiO2 % Tidal Volume PEEP Sodium 138 (136-145) mmol/L Potassium 4.6 D (3.5-5.1) mmol/L Chloride 103 (98-107) mmol/L Carbon Dioxide 9 L* (21-32) mmol/L Anion Gap 26.0 H (3-11) BUN 55 H (7-18) mg/dl Creatinine 2.83 H (0.6-1.4) mg/dl Est Cr Clr Drug Dosing 22.5 Est GFR ( Amer) 25.4 Est GFR (Non-Af Amer) 21.9 BUN/Creatinine Ratio 19.3 (10-20) Glucose 766 H* (70-99) mg/dl POC Glucose > 600 H* (70-99) mg/dl Estimat Average Glucose mg/dl Hemoglobin A1c (4.5-5.6) % Lactate (0.4-2.0) mmol/L Calcium 8.5 (8.5-10.1) mg/dl Phosphorus 7.5 H (2.5-4.9) mg/dl Magnesium 2.7 H (1.8-2.4) mg/dl Total Bilirubin (0.2-1) mg/dl AST (15-37) U/L ALT (12-78) U/L Alkaline Phosphatase (45-117) U/L Troponin I (0-0.045) ng/ml Total Protein (6.4-8.2) gm/dl Albumin (3.4-5.0) gm/dl Globulin (2.5-4.0) gm/dl Albumin/Globulin Ratio (0.9-2) Beta-Hydroxybutyric Acd 105.90 H (0.2-2.81) mg/dl Procalcitonin (0-0.5) ng/ml Urine Color Urine Appearance (Clear) Urine pH (4.5-7.5) Ur Specific [place] (1.000-1.030) Urine Protein (Negative) Urine Glucose (UA) (Negative) Urine Ketones (Negative) Urine Blood (Negative) Urine Nitrite (Negative) Urine Bilirubin (Negative) Urine Urobilinogen (Negative) Ur Leukocyte Esterase (Negative) Urine WBC (Auto) (0-5) /hpf Urine RBC (Auto) (0-4) /hpf U Hyaline Cast (Auto) (0-5) /lpf U Epithel Cells (Auto) (0-5) /lpf Urine Bacteria (Auto) (Negative) Nasal Screen MRSA (PCR) (Negative) COVID-19 Eval Order COVID-19 PCR (Negative) 03/21/20 03/21/20 03/21/20 Range/Units 18:15 17:38 17:17 WBC (4.8-10.8) K/uL RBC (4.7-6.1) M/uL Hgb (14.0-18.0) g/dL Hct (42-52) % MCV (80-100) fL MCH (25-34) pg MCHC (32-36) g/dL RDW Std Deviation (36.4-46.3) fL RDW Coeff of Jace (11.5-14.5) % Plt Count (130-400) K/uL MPV (7.4-10.4) fL Immature Gran % (Auto) % Neut % (Auto) % Lymph % (Auto) % [place] % (Auto) % Eos % (Auto) % Baso % (Auto) % Neut # (Auto) (1.4-6.5) K/uL Lymph # (Auto) (1.2-3.4) K/uL [place] # (Auto) (0.11-0.59) K/uL Eos # (Auto) (0-0.5) K/uL Baso # (Auto) (0-0.2) K/uL Immature Gran # (Auto) (0.00-0.02) K/uL PT (9.0-12.0) Seconds INR (0.9-1.1) APTT (21.0-31.0) Seconds PTT Ratio Sample Site POC pH (7.35-7.45) POC pCO2 (35-46) mmHg POC pO2 (80-95) mmHg POC HCO3 (19-24) rene/L POC Total CO2 (24-31) mmol/L POC Base Excess (-9-1.8) rene/L ABG pH ABG pCO2 ABG pO2 ABG HCO3 POC ABG O2 Sat (90-95) % ABG O2 Saturation ABG Base Excess Bharat Test VBG pH (7.36-7.41) VBG pCO2 (38-50) mmHg VBG pO2 mmHg VBG HCO3 mmol/L VBG O2 Saturation % VBG Base Excess mEq/L Barometric Pressure Oxygen Given O2 Delivery Device POC O2 Rate Minute Ventilation POC FiO2 % Tidal Volume PEEP Sodium (136-145) mmol/L Potassium (3.5-5.1) mmol/L Chloride (98-107) mmol/L Carbon Dioxide (21-32) mmol/L Anion Gap (3-11) BUN (7-18) mg/dl Creatinine (0.6-1.4) mg/dl Est Cr Clr Drug Dosing Est GFR ( Amer) Est GFR (Non-Af Amer) BUN/Creatinine Ratio (10-20) Glucose (70-99) mg/dl POC Glucose > 600 H* (70-99) mg/dl Estimat Average Glucose mg/dl Hemoglobin A1c (4.5-5.6) % Lactate 4.1 H* (0.4-2.0) mmol/L Calcium (8.5-10.1) mg/dl Phosphorus (2.5-4.9) mg/dl Magnesium (1.8-2.4) mg/dl Total Bilirubin (0.2-1) mg/dl AST (15-37) U/L ALT (12-78) U/L Alkaline Phosphatase (45-117) U/L Troponin I (0-0.045) ng/ml Total Protein (6.4-8.2) gm/dl Albumin (3.4-5.0) gm/dl Globulin (2.5-4.0) gm/dl Albumin/Globulin Ratio (0.9-2) Beta-Hydroxybutyric Acd (0.2-2.81) mg/dl Procalcitonin (0-0.5) ng/ml Urine Color Urine Appearance (Clear) Urine pH (4.5-7.5) Ur Specific [place] (1.000-1.030) Urine Protein (Negative) Urine Glucose (UA) (Negative) Urine Ketones (Negative) Urine Blood (Negative) Urine Nitrite (Negative) Urine Bilirubin (Negative) Urine Urobilinogen (Negative) Ur Leukocyte Esterase (Negative) Urine WBC (Auto) (0-5) /hpf Urine RBC (Auto) (0-4) /hpf U Hyaline Cast (Auto) (0-5) /lpf U Epithel Cells (Auto) (0-5) /lpf Urine Bacteria (Auto) (Negative) Nasal Screen MRSA (PCR) Negative (Negative) COVID-19 Eval Order COVID-19 PCR (Negative) 03/21/20 03/21/20 03/21/20 Range/Units 17:00 17:00 16:58 WBC (4.8-10.8) K/uL RBC (4.7-6.1) M/uL Hgb (14.0-18.0) g/dL Hct (42-52) % MCV (80-100) fL MCH (25-34) pg MCHC (32-36) g/dL RDW Std Deviation (36.4-46.3) fL RDW Coeff of Jace (11.5-14.5) % Plt Count (130-400) K/uL MPV (7.4-10.4) fL Immature Gran % (Auto) % Neut % (Auto) % Lymph % (Auto) % [place] % (Auto) % Eos % (Auto) % Baso % (Auto) % Neut # (Auto) (1.4-6.5) K/uL Lymph # (Auto) (1.2-3.4) K/uL [place] # (Auto) (0.11-0.59) K/uL Eos # (Auto) (0-0.5) K/uL Baso # (Auto) (0-0.2) K/uL Immature Gran # (Auto) (0.00-0.02) K/uL PT (9.0-12.0) Seconds INR (0.9-1.1) APTT (21.0-31.0) Seconds PTT Ratio Sample Site POC pH 7.02 L* (7.35-7.45) POC pCO2 25 L (35-46) mmHg POC pO2 122 H (80-95) mmHg POC HCO3 7 L (19-24) rene/L POC Total CO2 7 L* (24-31) mmol/L POC Base Excess -24.0 L (-9-1.8) rene/L ABG pH ABG pCO2 ABG pO2 ABG HCO3 POC ABG O2 Sat 96.0 H (90-95) % ABG O2 Saturation ABG Base Excess Bharat Test VBG pH (7.36-7.41) VBG pCO2 (38-50) mmHg VBG pO2 mmHg VBG HCO3 mmol/L VBG O2 Saturation % VBG Base Excess mEq/L Barometric Pressure Oxygen Given O2 Delivery Device POC O2 Rate Minute Ventilation POC FiO2 % Tidal Volume PEEP Sodium 137 (136-145) mmol/L Potassium 6.0 H D (3.5-5.1) mmol/L Chloride 103 (98-107) mmol/L Carbon Dioxide 7 L* (21-32) mmol/L Anion Gap 27.0 H (3-11) BUN 57 H (7-18) mg/dl Creatinine 2.69 H D (0.6-1.4) mg/dl Est Cr Clr Drug Dosing Not Reportable Est GFR ( Amer) 27.0 Est GFR (Non-Af Amer) 23.3 BUN/Creatinine Ratio 21.3 H (10-20) Glucose 837 H* (70-99) mg/dl POC Glucose > 600 H* (70-99) mg/dl Estimat Average Glucose mg/dl Hemoglobin A1c (4.5-5.6) % Lactate (0.4-2.0) mmol/L Calcium 8.6 (8.5-10.1) mg/dl Phosphorus (2.5-4.9) mg/dl Magnesium (1.8-2.4) mg/dl Total Bilirubin (0.2-1) mg/dl AST (15-37) U/L ALT (12-78) U/L Alkaline Phosphatase (45-117) U/L Troponin I (0-0.045) ng/ml Total Protein (6.4-8.2) gm/dl Albumin (3.4-5.0) gm/dl Globulin (2.5-4.0) gm/dl Albumin/Globulin Ratio (0.9-2) Beta-Hydroxybutyric Acd 111.76 H (0.2-2.81) mg/dl Procalcitonin (0-0.5) ng/ml Urine Color Urine Appearance (Clear) Urine pH (4.5-7.5) Ur Specific [place] (1.000-1.030) Urine Protein (Negative) Urine Glucose (UA) (Negative) Urine Ketones (Negative) Urine Blood (Negative) Urine Nitrite (Negative) Urine Bilirubin (Negative) Urine Urobilinogen (Negative) Ur Leukocyte Esterase (Negative) Urine WBC (Auto) (0-5) /hpf Urine RBC (Auto) (0-4) /hpf U Hyaline Cast (Auto) (0-5) /lpf U Epithel Cells (Auto) (0-5) /lpf Urine Bacteria (Auto) (Negative) Nasal Screen MRSA (PCR) (Negative) COVID-19 Eval Order COVID-19 PCR (Negative) 03/21/20 03/21/20 03/21/20 Range/Units 16:51 15:26 15:19 WBC (4.8-10.8) K/uL RBC (4.7-6.1) M/uL Hgb (14.0-18.0) g/dL Hct (42-52) % MCV (80-100) fL MCH (25-34) pg MCHC (32-36) g/dL RDW Std Deviation (36.4-46.3) fL RDW Coeff of Jace (11.5-14.5) % Plt Count (130-400) K/uL MPV (7.4-10.4) fL Immature Gran % (Auto) % Neut % (Auto) % Lymph % (Auto) % [place] % (Auto) % Eos % (Auto) % Baso % (Auto) % Neut # (Auto) (1.4-6.5) K/uL Lymph # (Auto) (1.2-3.4) K/uL [place] # (Auto) (0.11-0.59) K/uL Eos # (Auto) (0-0.5) K/uL Baso # (Auto) (0-0.2) K/uL Immature Gran # (Auto) (0.00-0.02) K/uL PT (9.0-12.0) Seconds INR (0.9-1.1) APTT (21.0-31.0) Seconds PTT Ratio Sample Site POC pH (7.35-7.45) POC pCO2 (35-46) mmHg POC pO2 (80-95) mmHg POC HCO3 (19-24) rene/L POC Total CO2 (24-31) mmol/L POC Base Excess (-9-1.8) rene/L ABG pH ABG pCO2 ABG pO2 ABG HCO3 POC ABG O2 Sat (90-95) % ABG O2 Saturation ABG Base Excess Bharat Test VBG pH 7.00 L (7.36-7.41) VBG pCO2 26 L (38-50) mmHg VBG pO2 45 mmHg VBG HCO3 6 mmol/L VBG O2 Saturation 68.2 % VBG Base Excess -23.6 mEq/L Barometric Pressure 734.9 Oxygen Given O2 Delivery Device POC O2 Rate Minute Ventilation POC FiO2 % Tidal Volume PEEP Sodium (136-145) mmol/L Potassium (3.5-5.1) mmol/L Chloride (98-107) mmol/L Carbon Dioxide (21-32) mmol/L Anion Gap (3-11) BUN (7-18) mg/dl Creatinine (0.6-1.4) mg/dl Est Cr Clr Drug Dosing Est GFR ( Amer) Est GFR (Non-Af Amer) BUN/Creatinine Ratio (10-20) Glucose (70-99) mg/dl POC Glucose (70-99) mg/dl Estimat Average Glucose mg/dl Hemoglobin A1c (4.5-5.6) % Lactate 6.8 H* (0.4-2.0) mmol/L Calcium (8.5-10.1) mg/dl Phosphorus (2.5-4.9) mg/dl Magnesium (1.8-2.4) mg/dl Total Bilirubin (0.2-1) mg/dl AST (15-37) U/L ALT (12-78) U/L Alkaline Phosphatase (45-117) U/L Troponin I (0-0.045) ng/ml Total Protein (6.4-8.2) gm/dl Albumin (3.4-5.0) gm/dl Globulin (2.5-4.0) gm/dl Albumin/Globulin Ratio (0.9-2) Beta-Hydroxybutyric Acd (0.2-2.81) mg/dl Procalcitonin (0-0.5) ng/ml Urine Color Yellow Urine Appearance Clear (Clear) Urine pH 5.0 (4.5-7.5) Ur Specific [place] 1.026 (1.000-1.030) Urine Protein 1+ H (Negative) Urine Glucose (UA) 3+ H (Negative) Urine Ketones 3+ H (Negative) Urine Blood Trace H (Negative) Urine Nitrite Negative (Negative) Urine Bilirubin Negative (Negative) Urine Urobilinogen Negative (Negative) Ur Leukocyte Esterase Negative (Negative) Urine WBC (Auto) 1-5 (0-5) /hpf Urine RBC (Auto) 0-4 (0-4) /hpf U Hyaline Cast (Auto) 1-5 (0-5) /lpf U Epithel Cells (Auto) 5-10 H (0-5) /lpf Urine Bacteria (Auto) Negative (Negative) Nasal Screen MRSA (PCR) (Negative) COVID-19 Eval Order COVID-19 PCR (Negative) 03/21/20 03/21/20 03/21/20 Range/Units 15:19 15:19 15:12 WBC (4.8-10.8) K/uL RBC (4.7-6.1) M/uL Hgb (14.0-18.0) g/dL Hct (42-52) % MCV (80-100) fL MCH (25-34) pg MCHC (32-36) g/dL RDW Std Deviation (36.4-46.3) fL RDW Coeff of Jace (11.5-14.5) % Plt Count (130-400) K/uL MPV (7.4-10.4) fL Immature Gran % (Auto) % Neut % (Auto) % Lymph % (Auto) % [place] % (Auto) % Eos % (Auto) % Baso % (Auto) % Neut # (Auto) (1.4-6.5) K/uL Lymph # (Auto) (1.2-3.4) K/uL [place] # (Auto) (0.11-0.59) K/uL Eos # (Auto) (0-0.5) K/uL Baso # (Auto) (0-0.2) K/uL Immature Gran # (Auto) (0.00-0.02) K/uL PT (9.0-12.0) Seconds INR (0.9-1.1) APTT (21.0-31.0) Seconds PTT Ratio Sample Site POC pH (7.35-7.45) POC pCO2 (35-46) mmHg POC pO2 (80-95) mmHg POC HCO3 (19-24) rene/L POC Total CO2 (24-31) mmol/L POC Base Excess (-9-1.8) rene/L ABG pH Cancelled ABG pCO2 Cancelled ABG pO2 Cancelled ABG HCO3 Cancelled POC ABG O2 Sat (90-95) % ABG O2 Saturation Cancelled ABG Base Excess Cancelled Bharat Test Cancelled VBG pH (7.36-7.41) VBG pCO2 (38-50) mmHg VBG pO2 mmHg VBG HCO3 mmol/L VBG O2 Saturation % VBG Base Excess mEq/L Barometric Pressure Cancelled Oxygen Given Cancelled O2 Delivery Device POC O2 Rate Minute Ventilation POC FiO2 % Tidal Volume PEEP Sodium 131 L (136-145) mmol/L Potassium 7.5 H* (3.5-5.1) mmol/L Chloride 95 L (98-107) mmol/L Carbon Dioxide 5 L* (21-32) mmol/L Anion Gap 32.0 H (3-11) BUN 61 H (7-18) mg/dl Creatinine 3.17 H (0.6-1.4) mg/dl Est Cr Clr Drug Dosing Not Reportable Est GFR ( Amer) 22.1 Est GFR (Non-Af Amer) 19.1 BUN/Creatinine Ratio 19.2 (10-20) Glucose 961 H* (70-99) mg/dl POC Glucose (70-99) mg/dl Estimat Average Glucose mg/dl Hemoglobin A1c (4.5-5.6) % Lactate (0.4-2.0) mmol/L Calcium 9.7 (8.5-10.1) mg/dl Phosphorus (2.5-4.9) mg/dl Magnesium 2.9 H (1.8-2.4) mg/dl Total Bilirubin 0.6 (0.2-1) mg/dl AST 16 (15-37) U/L ALT 25 (12-78) U/L Alkaline Phosphatase 112 (45-117) U/L Troponin I 0.066 H* (0-0.045) ng/ml Total Protein 7.6 (6.4-8.2) gm/dl Albumin 3.6 (3.4-5.0) gm/dl Globulin 4.0 (2.5-4.0) gm/dl Albumin/Globulin Ratio 0.9 (0.9-2) Beta-Hydroxybutyric Acd 120.45 H (0.2-2.81) mg/dl Procalcitonin 1.38 H (0-0.5) ng/ml Urine Color Urine Appearance (Clear) Urine pH (4.5-7.5) Ur Specific [place] (1.000-1.030) Urine Protein (Negative) Urine Glucose (UA) (Negative) Urine Ketones (Negative) Urine Blood (Negative) Urine Nitrite (Negative) Urine Bilirubin (Negative) Urine Urobilinogen (Negative) Ur Leukocyte Esterase (Negative) Urine WBC (Auto) (0-5) /hpf Urine RBC (Auto) (0-4) /hpf U Hyaline Cast (Auto) (0-5) /lpf U Epithel Cells (Auto) (0-5) /lpf Urine Bacteria (Auto) (Negative) Nasal Screen MRSA (PCR) (Negative) COVID-19 Eval Order COVID-19 PCR (Negative) 03/21/20 03/21/20 03/21/20 Range/Units 15:12 15:12 14:32 WBC 22.16 H (4.8-10.8) K/uL RBC 3.72 L (4.7-6.1) M/uL Hgb 10.9 L (14.0-18.0) g/dL Hct 37.0 L (42-52) % MCV 99.5 (80-100) fL MCH 29.3 (25-34) pg MCHC 29.5 L (32-36) g/dL RDW Std Deviation 58.0 H (36.4-46.3) fL RDW Coeff of Jace 15.7 H (11.5-14.5) % Plt Count 338 (130-400) K/uL MPV 11.1 H (7.4-10.4) fL Immature Gran % (Auto) 1.1 % Neut % (Auto) 79.9 % Lymph % (Auto) 11.0 % [place] % (Auto) 7.9 % Eos % (Auto) 0.1 % Baso % (Auto) 0.0 % Neut # (Auto) 17.68 H (1.4-6.5) K/uL Lymph # (Auto) 2.44 (1.2-3.4) K/uL [place] # (Auto) 1.75 H (0.11-0.59) K/uL Eos # (Auto) 0.03 (0-0.5) K/uL Baso # (Auto) 0.01 (0-0.2) K/uL Immature Gran # (Auto) 0.25 H (0.00-0.02) K/uL PT 10.3 (9.0-12.0) Seconds INR 1.0 (0.9-1.1) APTT 25.2 (21.0-31.0) Seconds PTT Ratio 0.9 Sample Site POC pH (7.35-7.45) POC pCO2 (35-46) mmHg POC pO2 (80-95) mmHg POC HCO3 (19-24) rene/L POC Total CO2 (24-31) mmol/L POC Base Excess (-9-1.8) rene/L ABG pH ABG pCO2 ABG pO2 ABG HCO3 POC ABG O2 Sat (90-95) % ABG O2 Saturation ABG Base Excess Bharat Test VBG pH (7.36-7.41) VBG pCO2 (38-50) mmHg VBG pO2 mmHg VBG HCO3 mmol/L VBG O2 Saturation % VBG Base Excess mEq/L Barometric Pressure Oxygen Given O2 Delivery Device POC O2 Rate Minute Ventilation POC FiO2 % Tidal Volume PEEP Sodium (136-145) mmol/L Potassium (3.5-5.1) mmol/L Chloride (98-107) mmol/L Carbon Dioxide (21-32) mmol/L Anion Gap (3-11) BUN (7-18) mg/dl Creatinine (0.6-1.4) mg/dl Est Cr Clr Drug Dosing Est GFR ( Amer) Est GFR (Non-Af Amer) BUN/Creatinine Ratio (10-20) Glucose (70-99) mg/dl POC Glucose > 600 H* (70-99) mg/dl Estimat Average Glucose mg/dl Hemoglobin A1c (4.5-5.6) % Lactate (0.4-2.0) mmol/L Calcium (8.5-10.1) mg/dl Phosphorus (2.5-4.9) mg/dl Magnesium (1.8-2.4) mg/dl Total Bilirubin (0.2-1) mg/dl AST (15-37) U/L ALT (12-78) U/L Alkaline Phosphatase (45-117) U/L Troponin I (0-0.045) ng/ml Total Protein (6.4-8.2) gm/dl Albumin (3.4-5.0) gm/dl Globulin (2.5-4.0) gm/dl Albumin/Globulin Ratio (0.9-2) Beta-Hydroxybutyric Acd (0.2-2.81) mg/dl Procalcitonin (0-0.5) ng/ml Urine Color Urine Appearance (Clear) Urine pH (4.5-7.5) Ur Specific [place] (1.000-1.030) Urine Protein (Negative) Urine Glucose (UA) (Negative) Urine Ketones (Negative) Urine Blood (Negative) Urine Nitrite (Negative) Urine Bilirubin (Negative) Urine Urobilinogen (Negative) Ur Leukocyte Esterase (Negative) Urine WBC (Auto) (0-5) /hpf Urine RBC (Auto) (0-4) /hpf U Hyaline Cast (Auto) (0-5) /lpf U Epithel Cells (Auto) (0-5) /lpf Urine Bacteria (Auto) (Negative) Nasal Screen MRSA (PCR) (Negative) COVID-19 Eval Order COVID-19 PCR (Negative) Medications Administered Current Inpatient Medications Dextrose (Dextrose 50% 50 Ml Syringe) 25 - 50 ml IV UD PRN; Protocol PRN Reason: Hypoglycemia Protocol Stop: 04/20/20 16:59 Fentanyl Citrate (Fentanyl Citrate 100 Mcg/2 Ml Vial) 100 mcg IV Q2H PRN PRN Reason: Severe Pain (7,8,9,10) on NRS Stop: 04/04/20 19:08 Last Admin: 03/21/20 23:56 Dose: 100 mcg Documented by: Glucagon (Glucagon For Inj 1 Mg Vial) 1 mg IM UD PRN; Protocol PRN Reason: Hypoglycemia Protocol Stop: 04/20/20 16:59 Glucose (Glucose 40% Gel 15 Gm Tube) 15 - 30 gm PO UD PRN; Protocol PRN Reason: Hypoglycemia Protocol Stop: 04/20/20 16:59 Glucose (Glucose 10 Tabs/Tube) 4 - 8 tabs PO UD PRN; Protocol PRN Reason: Hypoglycemia Protocol Stop: 04/20/20 16:59 Insulin Human Regular 250 (units/ Sodium Chloride) 250 mls @ 0 mls/hr IV .Q0M AYDEN; Protocol Stop: 04/20/20 15:44 Last Titration: 03/22/20 09:00 Dose: 0 units/hr, 0 mls/hr Documented by: Midazolam HCl (Versed) 125 mg in 250 mls @ 4 mls/hr IV .[id number] PRN; Protocol PRN Reason: Agitation Stop: 04/20/20 16:09 Last Titration: 03/22/20 09:48 Dose: Infused Documented by: Potassium Chloride 40 meq/ (Dextrose/Sodium Chloride) 1,020 mls @ 150 mls/hr IV .[id number] [facility] Stop: 04/21/20 05:29 Last Infusion: 03/22/20 09:46 Dose: 150 mls/hr Documented by: Pantoprazole Sodium 40 mg/ (Syringe) 10 mls @ 5 mls/min IV DAILY@1100 [facility] Stop: 04/21/20 10:59 Last Admin: 03/22/20 08:29 Dose: 5 mls/min Documented by: Heparin Sodium/Dextrose (Heparin Sodium/Dextrose) 25,000 units in 500 mls @ 24 mls/hr IV .[id number] [facility]; Protocol Stop: 04/21/20 07:44 Last Titration: 03/22/20 09:46 Dose: 1,200 units/hr, 24 mls/hr Documented by: Insulin Aspart (Insulin Aspart 100 Units/Ml 3 Ml Pen) 0 units SC ACHS [facility] Stop: 04/20/20 20:59 Last Admin: 03/22/20 08:28 Dose: Not Given Documented by: Metoprolol Tartrate (Metoprolol Tartrate 1 Mg/Ml Vial) 2.5 mg IV Q4H [facility] Stop: 04/21/20 10:29 Midazolam HCl (Midazolam Hcl 1 Mg/Ml 2ml Vial) 1 mg IV Q2H PRN PRN Reason: RASS goal -1 Stop: 04/20/20 16:09 Midazolam HCl (Midazolam Bolus From Bag) 2 mg IV Q60M PRN PRN Reason: Sedation Stop: 04/20/20 16:09 Miscellaneous (Carbohydrates For Hypoglycemia ) 15 - 30 gm PO UD PRN PRN Reason: Hypoglycemia Treatment Stop: 04/20/20 16:59 Miscellaneous Information (Pharmacy Glycemic Mgmt Consult) 1 ea N/A UD PRN PRN Reason: Consult Stop: 04/21/20 09:14 Resident Activity Tracking Resident Involvement: Resident Care Provided Care Provided: Adult Hospital Medicine (Critical Care) (1) DKA (diabetic ketoacidoses) Diabetes mellitus complication detail: with coma Diabetes mellitus type: type 1 Qualified Code(s): E10.11 - Type 1 diabetes mellitus with ketoacidosis with coma (2) Respiratory failure Chronicity: acute Respiratory failure complication: unspecified whether with hypoxia or hypercapnia Qualified Code(s): J96.00 - Acute respiratory failure, unspecified whether with hypoxia or hypercapnia
--- NOTE | 2020-03-22 09:48 | Hospitalist Progress Note ---
Date of Service March 22, 2020 Assessment & Plan (1) Unresponsive: (2) Metabolic encephalopathy: (3) DKA (diabetic ketoacidoses): (4) Metabolic acidosis: 69 y/o M with PMH insulin-dependent DM I, HTN, bipolar, dyslipidemia presented to ER for unresponsiveness. History obtained from ER physician as patient is currently sedated and intubated. It is reported that patient had been refusing taking his insulin. Upon arrival to ER patient was tachypneic and unresponsive. He was intubated. Patient with history COVID-19 requiring hospitalization 11/2019 and during that hospitalization developed paroxysmal A. fib and was started on metoprolol tartrate and Eliquis. Initial pH was 7.02, now 7.7 (likely from bicarb amps received overnight and correction of DKA) Anion GAP 32 now 11 BG was 961 Beta hydroxybutyrate was 74.17. Was started on insulin drip for DKA, now being transitioned to subcut Acidosis resolved. Now alkalotic Repeat ABG Still intubated for airway protection Will follow drum plater for ventilator management and weaning plans Discussed with Landscape Technician Procal was 1.38 CT Ab/P show basilar opacities suggestive of atelectasis. ?Aspiration Will continue empiric antibiotics with zosyn for now (5) Acute hyperkalemia: Initial K: 7.5 on admission Trended down with IVF and insulin therapy Was 3.3 this morning. Currently being repleted with K phos Monitor and manage appropriately (6) CHIVO (acute kidney injury): BUN 61, Cr: 3. Repeat Cr: 2.69 on admission Secondary to DKA CHIVO is improving. Cr now 1.56 Monitor renal functions, avoid nephrotoxic agents (7) Elevated troponin: Trop was 0.066 on admission increased to 13.7 this AM Demand ischemia in setting of CHIVO vs NSTEMI Continue heparin drip Will follow up cardiology evaluation and Echo findings (8) Paroxysmal atrial fibrillation with RVR: H/O PAF during hospitalization in 11/2019 On Eliquis, metoprolol tartrate at home (9) Hypertension: On lisinopril at home (10) Bipolar 1 disorder: On quetiapine, sertraline at home Dispo - Continue ICU care Admission and Anticipated Discharge Date Admission Date: March 21, 2020 Subjective Patient seen and examined. Currently intubated and sedated with versed On AC ventilator settings Review of Systems Review of Systems: Unobtainable due to reduced consciousness Physical Exam Constitutional: Intubated and sedated ENMT: ETT, NGT in situ Respiratory: Intubated, lungs are clear to auscultation Cardiovascular: RRR, no murmur, no edema Gastrointestinal (Abdomen): Inspection/Auscultation: abdomen normal to inspection and normal bowel sounds; abdomen not distended Percussion/Palpation: abdomen soft Musculoskeletal: Left BKA Neurologic: Intubated and sedated Results & Data Results & Data ([facility]) Vital Signs (Past 12 Hours) Vital Signs Temp Pulse Resp BP Pulse Ox 03/22/20 08:30 93 H 100 03/22/20 08:00 94 H 100 03/22/20 07:30 93 H 100 03/22/20 07:14 94 H 18 100 03/22/20 07:00 97 H 99 03/22/20 06:45 95 H 100 03/22/20 06:00 95 H 100 03/22/20 05:40 99 H 19 99 03/22/20 05:00 99 H 99 03/22/20 04:00 37.0 C 95 H 106/25 L 100 03/22/20 03:00 95 H 100 03/22/20 02:37 95 H 103/40 L 100 03/22/20 02:00 95 H 100 03/22/20 01:59 90 27 H 100 03/22/20 01:00 96 H 100 03/22/20 00:00 97 H 95/28 L 100 03/21/20 23:59 99 H 106/39 L 100 03/21/20 23:31 99 H 27 H 100 03/21/20 23:00 100 H 100 03/21/20 22:00 97 H 100 Laboratory Results Abnormal lab results 03/21/20 03/21/20 03/21/20 Range/Units 14:32 15:12 15:12 WBC 22.16 H (4.8-10.8) K/uL RBC 3.72 L (4.7-6.1) M/uL Hgb 10.9 L (14.0-18.0) g/dL Hct 37.0 L (42-52) % MCHC 29.5 L (32-36) g/dL RDW Std Deviation 58.0 H (36.4-46.3) fL RDW Coeff of Jace 15.7 H (11.5-14.5) % MPV 11.1 H (7.4-10.4) fL Neut # (Auto) 17.68 H (1.4-6.5) K/uL Baca # (Auto) 1.75 H (0.11-0.59) K/uL Immature Gran # (Auto) 0.25 H (0.00-0.02) K/uL POC pH (7.35-7.45) POC pCO2 (35-46) mmHg POC pO2 (80-95) mmHg POC HCO3 (19-24) rene/L POC Total CO2 (24-31) mmol/L POC Base Excess (-9-1.8) rene/L ABG pCO2 (35-46) mmHg ABG pO2 (80-95) mmHg POC ABG O2 Sat (90-95) % ABG O2 Saturation (90-95) % VBG pH (7.36-7.41) VBG pCO2 (38-50) mmHg Sodium 131 L (136-145) mmol/L Potassium 7.5 H* (3.5-5.1) mmol/L Chloride 95 L (98-107) mmol/L Carbon Dioxide 5 L* (21-32) mmol/L Anion Gap 32.0 H (3-11) BUN 61 H (7-18) mg/dl Creatinine 3.17 H (0.6-1.4) mg/dl BUN/Creatinine Ratio (10-20) Glucose 961 H* (70-99) mg/dl POC Glucose > 600 H* (70-99) mg/dl Hemoglobin A1c (4.5-5.6) % Lactate (0.4-2.0) mmol/L Calcium (8.5-10.1) mg/dl Phosphorus (2.5-4.9) mg/dl Magnesium 2.9 H (1.8-2.4) mg/dl Troponin I 0.066 H* (0-0.045) ng/ml Beta-Hydroxybutyric Acd 120.45 H (0.2-2.81) mg/dl Procalcitonin (0-0.5) ng/ml Urine Appearance (Clear) Urine Protein (Negative) Urine Glucose (UA) (Negative) Urine Ketones (Negative) Urine Blood (Negative) Urine RBC (Auto) (0-4) /hpf U Hyaline Cast (Auto) (0-5) /lpf U Epithel Cells (Auto) (0-5) /lpf 03/21/20 03/21/20 03/21/20 Range/Units 15:19 15:19 15:26 WBC (4.8-10.8) K/uL RBC (4.7-6.1) M/uL Hgb (14.0-18.0) g/dL Hct (42-52) % MCHC (32-36) g/dL RDW Std Deviation (36.4-46.3) fL RDW Coeff of Jace (11.5-14.5) % MPV (7.4-10.4) fL Neut # (Auto) (1.4-6.5) K/uL Baca # (Auto) (0.11-0.59) K/uL Immature Gran # (Auto) (0.00-0.02) K/uL POC pH (7.35-7.45) POC pCO2 (35-46) mmHg POC pO2 (80-95) mmHg POC HCO3 (19-24) rene/L POC Total CO2 (24-31) mmol/L POC Base Excess (-9-1.8) rene/L ABG pCO2 (35-46) mmHg ABG pO2 (80-95) mmHg POC ABG O2 Sat (90-95) % ABG O2 Saturation (90-95) % VBG pH 7.00 L (7.36-7.41) VBG pCO2 26 L (38-50) mmHg Sodium (136-145) mmol/L Potassium (3.5-5.1) mmol/L Chloride (98-107) mmol/L Carbon Dioxide (21-32) mmol/L Anion Gap (3-11) BUN (7-18) mg/dl Creatinine (0.6-1.4) mg/dl BUN/Creatinine Ratio (10-20) Glucose (70-99) mg/dl POC Glucose (70-99) mg/dl Hemoglobin A1c (4.5-5.6) % Lactate 6.8 H* (0.4-2.0) mmol/L Calcium (8.5-10.1) mg/dl Phosphorus (2.5-4.9) mg/dl Magnesium (1.8-2.4) mg/dl Troponin I (0-0.045) ng/ml Beta-Hydroxybutyric Acd (0.2-2.81) mg/dl Procalcitonin 1.38 H (0-0.5) ng/ml Urine Appearance (Clear) Urine Protein (Negative) Urine Glucose (UA) (Negative) Urine Ketones (Negative) Urine Blood (Negative) Urine RBC (Auto) (0-4) /hpf U Hyaline Cast (Auto) (0-5) /lpf U Epithel Cells (Auto) (0-5) /lpf 03/21/20 03/21/20 03/21/20 Range/Units 16:51 16:58 17:00 WBC (4.8-10.8) K/uL RBC (4.7-6.1) M/uL Hgb (14.0-18.0) g/dL Hct (42-52) % MCHC (32-36) g/dL RDW Std Deviation (36.4-46.3) fL RDW Coeff of Jace (11.5-14.5) % MPV (7.4-10.4) fL Neut # (Auto) (1.4-6.5) K/uL Baca # (Auto) (0.11-0.59) K/uL Immature Gran # (Auto) (0.00-0.02) K/uL POC pH (7.35-7.45) POC pCO2 (35-46) mmHg POC pO2 (80-95) mmHg POC HCO3 (19-24) rene/L POC Total CO2 (24-31) mmol/L POC Base Excess (-9-1.8) rene/L ABG pCO2 (35-46) mmHg ABG pO2 (80-95) mmHg POC ABG O2 Sat (90-95) % ABG O2 Saturation (90-95) % VBG pH (7.36-7.41) VBG pCO2 (38-50) mmHg Sodium (136-145) mmol/L Potassium 6.0 H D (3.5-5.1) mmol/L Chloride (98-107) mmol/L Carbon Dioxide 7 L* (21-32) mmol/L Anion Gap 27.0 H (3-11) BUN 57 H (7-18) mg/dl Creatinine 2.69 H D (0.6-1.4) mg/dl BUN/Creatinine Ratio 21.3 H (10-20) Glucose 837 H* (70-99) mg/dl POC Glucose > 600 H* (70-99) mg/dl Hemoglobin A1c (4.5-5.6) % Lactate (0.4-2.0) mmol/L Calcium (8.5-10.1) mg/dl Phosphorus (2.5-4.9) mg/dl Magnesium (1.8-2.4) mg/dl Troponin I (0-0.045) ng/ml Beta-Hydroxybutyric Acd 111.76 H (0.2-2.81) mg/dl Procalcitonin (0-0.5) ng/ml Urine Appearance (Clear) Urine Protein 1+ H (Negative) Urine Glucose (UA) 3+ H (Negative) Urine Ketones 3+ H (Negative) Urine Blood Trace H (Negative) Urine RBC (Auto) (0-4) /hpf U Hyaline Cast (Auto) (0-5) /lpf U Epithel Cells (Auto) 5-10 H (0-5) /lpf 03/21/20 03/21/20 03/21/20 Range/Units 17:00 17:17 17:38 WBC (4.8-10.8) K/uL RBC (4.7-6.1) M/uL Hgb (14.0-18.0) g/dL Hct (42-52) % MCHC (32-36) g/dL RDW Std Deviation (36.4-46.3) fL RDW Coeff of Jace (11.5-14.5) % MPV (7.4-10.4) fL Neut # (Auto) (1.4-6.5) K/uL Baca # (Auto) (0.11-0.59) K/uL Immature Gran # (Auto) (0.00-0.02) K/uL POC pH 7.02 L* (7.35-7.45) POC pCO2 25 L (35-46) mmHg POC pO2 122 H (80-95) mmHg POC HCO3 7 L (19-24) rene/L POC Total CO2 7 L* (24-31) mmol/L POC Base Excess -24.0 L (-9-1.8) rene/L ABG pCO2 (35-46) mmHg ABG pO2 (80-95) mmHg POC ABG O2 Sat 96.0 H (90-95) % ABG O2 Saturation (90-95) % VBG pH (7.36-7.41) VBG pCO2 (38-50) mmHg Sodium (136-145) mmol/L Potassium (3.5-5.1) mmol/L Chloride (98-107) mmol/L Carbon Dioxide (21-32) mmol/L Anion Gap (3-11) BUN (7-18) mg/dl Creatinine (0.6-1.4) mg/dl BUN/Creatinine Ratio (10-20) Glucose (70-99) mg/dl POC Glucose > 600 H* (70-99) mg/dl Hemoglobin A1c (4.5-5.6) % Lactate 4.1 H* (0.4-2.0) mmol/L Calcium (8.5-10.1) mg/dl Phosphorus (2.5-4.9) mg/dl Magnesium (1.8-2.4) mg/dl Troponin I (0-0.045) ng/ml Beta-Hydroxybutyric Acd (0.2-2.81) mg/dl Procalcitonin (0-0.5) ng/ml Urine Appearance (Clear) Urine Protein (Negative) Urine Glucose (UA) (Negative) Urine Ketones (Negative) Urine Blood (Negative) Urine RBC (Auto) (0-4) /hpf U Hyaline Cast (Auto) (0-5) /lpf U Epithel Cells (Auto) (0-5) /lpf 03/21/20 03/21/20 03/21/20 Range/Units 18:23 18:44 20:12 WBC (4.8-10.8) K/uL RBC (4.7-6.1) M/uL Hgb (14.0-18.0) g/dL Hct (42-52) % MCHC (32-36) g/dL RDW Std Deviation (36.4-46.3) fL RDW Coeff of Jace (11.5-14.5) % MPV (7.4-10.4) fL Neut # (Auto) (1.4-6.5) K/uL Baca # (Auto) (0.11-0.59) K/uL Immature Gran # (Auto) (0.00-0.02) K/uL POC pH (7.35-7.45) POC pCO2 (35-46) mmHg POC pO2 (80-95) mmHg POC HCO3 (19-24) rene/L POC Total CO2 (24-31) mmol/L POC Base Excess (-9-1.8) rene/L ABG pCO2 (35-46) mmHg ABG pO2 (80-95) mmHg POC ABG O2 Sat (90-95) % ABG O2 Saturation (90-95) % VBG pH 7.06 L (7.36-7.41) VBG pCO2 (38-50) mmHg Sodium (136-145) mmol/L Potassium (3.5-5.1) mmol/L Chloride (98-107) mmol/L Carbon Dioxide 9 L* (21-32) mmol/L Anion Gap 26.0 H (3-11) BUN 55 H (7-18) mg/dl Creatinine 2.83 H (0.6-1.4) mg/dl BUN/Creatinine Ratio (10-20) Glucose 766 H* (70-99) mg/dl POC Glucose > 600 H* (70-99) mg/dl Hemoglobin A1c (4.5-5.6) % Lactate (0.4-2.0) mmol/L Calcium (8.5-10.1) mg/dl Phosphorus 7.5 H (2.5-4.9) mg/dl Magnesium 2.7 H (1.8-2.4) mg/dl Troponin I (0-0.045) ng/ml Beta-Hydroxybutyric Acd 105.90 H (0.2-2.81) mg/dl Procalcitonin (0-0.5) ng/ml Urine Appearance (Clear) Urine Protein (Negative) Urine Glucose (UA) (Negative) Urine Ketones (Negative) Urine Blood (Negative) Urine RBC (Auto) (0-4) /hpf U Hyaline Cast (Auto) (0-5) /lpf U Epithel Cells (Auto) (0-5) /lpf 03/21/20 03/21/20 03/21/20 Range/Units 20:24 22:19 22:19 WBC (4.8-10.8) K/uL RBC (4.7-6.1) M/uL Hgb (14.0-18.0) g/dL Hct (42-52) % MCHC (32-36) g/dL RDW Std Deviation (36.4-46.3) fL RDW Coeff of Jace (11.5-14.5) % MPV (7.4-10.4) fL Neut # (Auto) (1.4-6.5) K/uL Baca # (Auto) (0.11-0.59) K/uL Immature Gran # (Auto) (0.00-0.02) K/uL POC pH (7.35-7.45) POC pCO2 (35-46) mmHg POC pO2 (80-95) mmHg POC HCO3 (19-24) rene/L POC Total CO2 (24-31) mmol/L POC Base Excess (-9-1.8) rene/L ABG pCO2 30 L (35-46) mmHg ABG pO2 120 H (80-95) mmHg POC ABG O2 Sat (90-95) % ABG O2 Saturation 98.7 H (90-95) % VBG pH (7.36-7.41) VBG pCO2 (38-50) mmHg Sodium (136-145) mmol/L Potassium (3.5-5.1) mmol/L Chloride (98-107) mmol/L Carbon Dioxide 20 L (21-32) mmol/L Anion Gap 18.0 H (3-11) BUN 50 H (7-18) mg/dl Creatinine 2.27 H D (0.6-1.4) mg/dl BUN/Creatinine Ratio 22.0 H (10-20) Glucose 646 H* 497 H* (70-99) mg/dl POC Glucose (70-99) mg/dl Hemoglobin A1c (4.5-5.6) % Lactate (0.4-2.0) mmol/L Calcium 8.2 L (8.5-10.1) mg/dl Phosphorus (2.5-4.9) mg/dl Magnesium 2.5 H (1.8-2.4) mg/dl Troponin I (0-0.045) ng/ml Beta-Hydroxybutyric Acd 94.15 H 74.17 H (0.2-2.81) mg/dl Procalcitonin (0-0.5) ng/ml Urine Appearance (Clear) Urine Protein (Negative) Urine Glucose (UA) (Negative) Urine Ketones (Negative) Urine Blood (Negative) Urine RBC (Auto) (0-4) /hpf U Hyaline Cast (Auto) (0-5) /lpf U Epithel Cells (Auto) (0-5) /lpf 03/21/20 03/22/20 03/22/20 Range/Units 23:42 00:53 01:53 WBC (4.8-10.8) K/uL RBC (4.7-6.1) M/uL Hgb (14.0-18.0) g/dL Hct (42-52) % MCHC (32-36) g/dL RDW Std Deviation (36.4-46.3) fL RDW Coeff of Jace (11.5-14.5) % MPV (7.4-10.4) fL Neut # (Auto) (1.4-6.5) K/uL Baca # (Auto) (0.11-0.59) K/uL Immature Gran # (Auto) (0.00-0.02) K/uL POC pH (7.35-7.45) POC pCO2 (35-46) mmHg POC pO2 (80-95) mmHg POC HCO3 (19-24) rene/L POC Total CO2 (24-31) mmol/L POC Base Excess (-9-1.8) rene/L ABG pCO2 (35-46) mmHg ABG pO2 (80-95) mmHg POC ABG O2 Sat (90-95) % ABG O2 Saturation (90-95) % VBG pH (7.36-7.41) VBG pCO2 (38-50) mmHg Sodium (136-145) mmol/L Potassium (3.5-5.1) mmol/L Chloride (98-107) mmol/L Carbon Dioxide (21-32) mmol/L Anion Gap (3-11) BUN (7-18) mg/dl Creatinine (0.6-1.4) mg/dl BUN/Creatinine Ratio (10-20) Glucose (70-99) mg/dl POC Glucose 427 H* 378 H* 330 H* (70-99) mg/dl Hemoglobin A1c (4.5-5.6) % Lactate (0.4-2.0) mmol/L Calcium (8.5-10.1) mg/dl Phosphorus (2.5-4.9) mg/dl Magnesium (1.8-2.4) mg/dl Troponin I (0-0.045) ng/ml Beta-Hydroxybutyric Acd (0.2-2.81) mg/dl Procalcitonin (0-0.5) ng/ml Urine Appearance (Clear) Urine Protein (Negative) Urine Glucose (UA) (Negative) Urine Ketones (Negative) Urine Blood (Negative) Urine RBC (Auto) (0-4) /hpf U Hyaline Cast (Auto) (0-5) /lpf U Epithel Cells (Auto) (0-5) /lpf 03/22/20 03/22/20 03/22/20 Range/Units 02:28 02:28 02:28 WBC (4.8-10.8) K/uL RBC (4.7-6.1) M/uL Hgb (14.0-18.0) g/dL Hct (42-52) % MCHC (32-36) g/dL RDW Std Deviation (36.4-46.3) fL RDW Coeff of Jace (11.5-14.5) % MPV (7.4-10.4) fL Neut # (Auto) (1.4-6.5) K/uL Baca # (Auto) (0.11-0.59) K/uL Immature Gran # (Auto) (0.00-0.02) K/uL POC pH (7.35-7.45) POC pCO2 (35-46) mmHg POC pO2 (80-95) mmHg POC HCO3 (19-24) rene/L POC Total CO2 (24-31) mmol/L POC Base Excess (-9-1.8) rene/L ABG pCO2 (35-46) mmHg ABG pO2 (80-95) mmHg POC ABG O2 Sat (90-95) % ABG O2 Saturation (90-95) % VBG pH 7.65 H (7.36-7.41) VBG pCO2 (38-50) mmHg Sodium (136-145) mmol/L Potassium 3.0 L D (3.5-5.1) mmol/L Chloride (98-107) mmol/L Carbon Dioxide (21-32) mmol/L Anion Gap 12.0 H (3-11) BUN 44 H (7-18) mg/dl Creatinine 2.08 H (0.6-1.4) mg/dl BUN/Creatinine Ratio 21.4 H (10-20) Glucose 289 H (70-99) mg/dl POC Glucose (70-99) mg/dl Hemoglobin A1c 10.9 H (4.5-5.6) % Lactate (0.4-2.0) mmol/L Calcium 8.0 L (8.5-10.1) mg/dl Phosphorus 0.4 L* D (2.5-4.9) mg/dl Magnesium (1.8-2.4) mg/dl Troponin I (0-0.045) ng/ml Beta-Hydroxybutyric Acd (0.2-2.81) mg/dl Procalcitonin (0-0.5) ng/ml Urine Appearance (Clear) Urine Protein (Negative) Urine Glucose (UA) (Negative) Urine Ketones (Negative) Urine Blood (Negative) Urine RBC (Auto) (0-4) /hpf U Hyaline Cast (Auto) (0-5) /lpf U Epithel Cells (Auto) (0-5) /lpf 03/22/20 03/22/20 03/22/20 Range/Units 02:38 04:55 05:27 WBC (4.8-10.8) K/uL RBC (4.7-6.1) M/uL Hgb (14.0-18.0) g/dL Hct (42-52) % MCHC (32-36) g/dL RDW Std Deviation (36.4-46.3) fL RDW Coeff of Jace (11.5-14.5) % MPV (7.4-10.4) fL Neut # (Auto) (1.4-6.5) K/uL Baca # (Auto) (0.11-0.59) K/uL Immature Gran # (Auto) (0.00-0.02) K/uL POC pH 7.71 H* (7.35-7.45) POC pCO2 19 L (35-46) mmHg POC pO2 60 L (80-95) mmHg POC HCO3 25 H (19-24) rene/L POC Total CO2 (24-31) mmol/L POC Base Excess 5.0 H (-9-1.8) rene/L ABG pCO2 (35-46) mmHg ABG pO2 (80-95) mmHg POC ABG O2 Sat 96.0 H (90-95) % ABG O2 Saturation (90-95) % VBG pH (7.36-7.41) VBG pCO2 (38-50) mmHg Sodium (136-145) mmol/L Potassium (3.5-5.1) mmol/L Chloride (98-107) mmol/L Carbon Dioxide (21-32) mmol/L Anion Gap (3-11) BUN (7-18) mg/dl Creatinine (0.6-1.4) mg/dl BUN/Creatinine Ratio (10-20) Glucose (70-99) mg/dl POC Glucose 300 H 175 H (70-99) mg/dl Hemoglobin A1c (4.5-5.6) % Lactate (0.4-2.0) mmol/L Calcium (8.5-10.1) mg/dl Phosphorus (2.5-4.9) mg/dl Magnesium (1.8-2.4) mg/dl Troponin I (0-0.045) ng/ml Beta-Hydroxybutyric Acd (0.2-2.81) mg/dl Procalcitonin (0-0.5) ng/ml Urine Appearance (Clear) Urine Protein (Negative) Urine Glucose (UA) (Negative) Urine Ketones (Negative) Urine Blood (Negative) Urine RBC (Auto) (0-4) /hpf U Hyaline Cast (Auto) (0-5) /lpf U Epithel Cells (Auto) (0-5) /lpf 03/22/20 03/22/20 03/22/20 Range/Units 06:17 06:47 06:47 WBC (4.8-10.8) K/uL RBC (4.7-6.1) M/uL Hgb (14.0-18.0) g/dL Hct (42-52) % MCHC (32-36) g/dL RDW Std Deviation (36.4-46.3) fL RDW Coeff of Jace (11.5-14.5) % MPV (7.4-10.4) fL Neut # (Auto) (1.4-6.5) K/uL Baca # (Auto) (0.11-0.59) K/uL Immature Gran # (Auto) (0.00-0.02) K/uL POC pH (7.35-7.45) POC pCO2 (35-46) mmHg POC pO2 (80-95) mmHg POC HCO3 (19-24) rene/L POC Total CO2 (24-31) mmol/L POC Base Excess (-9-1.8) rene/L ABG pCO2 (35-46) mmHg ABG pO2 (80-95) mmHg POC ABG O2 Sat (90-95) % ABG O2 Saturation (90-95) % VBG pH 7.61 H (7.36-7.41) VBG pCO2 (38-50) mmHg Sodium (136-145) mmol/L Potassium 3.3 L (3.5-5.1) mmol/L Chloride (98-107) mmol/L Carbon Dioxide (21-32) mmol/L Anion Gap (3-11) BUN 41 H (7-18) mg/dl Creatinine 1.87 H (0.6-1.4) mg/dl BUN/Creatinine Ratio 21.8 H (10-20) Glucose 139 H (70-99) mg/dl POC Glucose 147 H (70-99) mg/dl Hemoglobin A1c (4.5-5.6) % Lactate (0.4-2.0) mmol/L Calcium (8.5-10.1) mg/dl Phosphorus 0.7 L* (2.5-4.9) mg/dl Magnesium (1.8-2.4) mg/dl Troponin I (0-0.045) ng/ml Beta-Hydroxybutyric Acd (0.2-2.81) mg/dl Procalcitonin (0-0.5) ng/ml Urine Appearance (Clear) Urine Protein (Negative) Urine Glucose (UA) (Negative) Urine Ketones (Negative) Urine Blood (Negative) Urine RBC (Auto) (0-4) /hpf U Hyaline Cast (Auto) (0-5) /lpf U Epithel Cells (Auto) (0-5) /lpf 03/22/20 03/22/20 03/22/20 Range/Units 06:47 06:47 07:31 WBC 13.18 H (4.8-10.8) K/uL RBC 3.22 L (4.7-6.1) M/uL Hgb 9.4 L (14.0-18.0) g/dL Hct 27.0 L (42-52) % MCHC (32-36) g/dL RDW Std Deviation (36.4-46.3) fL RDW Coeff of Jace (11.5-14.5) % MPV (7.4-10.4) fL Neut # (Auto) 9.68 H (1.4-6.5) K/uL [place] # (Auto) 1.57 H (0.11-0.59) K/uL Immature Gran # (Auto) (0.00-0.02) K/uL POC pH (7.35-7.45) POC pCO2 (35-46) mmHg POC pO2 (80-95) mmHg POC HCO3 (19-24) rene/L POC Total CO2 (24-31) mmol/L POC Base Excess (-9-1.8) rene/L ABG pCO2 (35-46) mmHg ABG pO2 (80-95) mmHg POC ABG O2 Sat (90-95) % ABG O2 Saturation (90-95) % VBG pH (7.36-7.41) VBG pCO2 (38-50) mmHg Sodium (136-145) mmol/L Potassium (3.5-5.1) mmol/L Chloride (98-107) mmol/L Carbon Dioxide (21-32) mmol/L Anion Gap (3-11) BUN (7-18) mg/dl Creatinine (0.6-1.4) mg/dl BUN/Creatinine Ratio (10-20) Glucose (70-99) mg/dl POC Glucose 136 H (70-99) mg/dl Hemoglobin A1c (4.5-5.6) % Lactate (0.4-2.0) mmol/L Calcium (8.5-10.1) mg/dl Phosphorus (2.5-4.9) mg/dl Magnesium (1.8-2.4) mg/dl Troponin I 13.700 H* (0-0.045) ng/ml Beta-Hydroxybutyric Acd (0.2-2.81) mg/dl Procalcitonin (0-0.5) ng/ml Urine Appearance (Clear) Urine Protein (Negative) Urine Glucose (UA) (Negative) Urine Ketones (Negative) Urine Blood (Negative) Urine RBC (Auto) (0-4) /hpf U Hyaline Cast (Auto) (0-5) /lpf U Epithel Cells (Auto) (0-5) /lpf 03/22/20 03/22/20 03/22/20 Range/Units 08:32 09:09 09:45 WBC (4.8-10.8) K/uL RBC (4.7-6.1) M/uL Hgb (14.0-18.0) g/dL Hct (42-52) % MCHC (32-36) g/dL RDW Std Deviation (36.4-46.3) fL RDW Coeff of Jace (11.5-14.5) % MPV (7.4-10.4) fL Neut # (Auto) (1.4-6.5) K/uL [place] # (Auto) (0.11-0.59) K/uL Immature Gran # (Auto) (0.00-0.02) K/uL POC pH (7.35-7.45) POC pCO2 (35-46) mmHg POC pO2 (80-95) mmHg POC HCO3 (19-24) rene/L POC Total CO2 (24-31) mmol/L POC Base Excess (-9-1.8) rene/L ABG pCO2 (35-46) mmHg ABG pO2 (80-95) mmHg POC ABG O2 Sat (90-95) % ABG O2 Saturation (90-95) % VBG pH (7.36-7.41) VBG pCO2 (38-50) mmHg Sodium (136-145) mmol/L Potassium (3.5-5.1) mmol/L Chloride (98-107) mmol/L Carbon Dioxide (21-32) mmol/L Anion Gap (3-11) BUN (7-18) mg/dl Creatinine (0.6-1.4) mg/dl BUN/Creatinine Ratio (10-20) Glucose (70-99) mg/dl POC Glucose 116 H 104 H 107 H (70-99) mg/dl Hemoglobin A1c (4.5-5.6) % Lactate (0.4-2.0) mmol/L Calcium (8.5-10.1) mg/dl Phosphorus (2.5-4.9) mg/dl Magnesium (1.8-2.4) mg/dl Troponin I (0-0.045) ng/ml Beta-Hydroxybutyric Acd (0.2-2.81) mg/dl Procalcitonin (0-0.5) ng/ml Urine Appearance (Clear) Urine Protein (Negative) Urine Glucose (UA) (Negative) Urine Ketones (Negative) Urine Blood (Negative) Urine RBC (Auto) (0-4) /hpf U Hyaline Cast (Auto) (0-5) /lpf U Epithel Cells (Auto) (0-5) /lpf 03/22/20 03/22/20 03/22/20 Range/Units 10:29 10:29 10:37 WBC (4.8-10.8) K/uL RBC (4.7-6.1) M/uL Hgb (14.0-18.0) g/dL Hct (42-52) % MCHC (32-36) g/dL RDW Std Deviation (36.4-46.3) fL RDW Coeff of Jace (11.5-14.5) % MPV (7.4-10.4) fL Neut # (Auto) (1.4-6.5) K/uL [place] # (Auto) (0.11-0.59) K/uL Immature Gran # (Auto) (0.00-0.02) K/uL POC pH (7.35-7.45) POC pCO2 (35-46) mmHg POC pO2 (80-95) mmHg POC HCO3 (19-24) rene/L POC Total CO2 (24-31) mmol/L POC Base Excess (-9-1.8) rene/L ABG pCO2 (35-46) mmHg ABG pO2 (80-95) mmHg POC ABG O2 Sat (90-95) % ABG O2 Saturation (90-95) % VBG pH 7.56 H (7.36-7.41) VBG pCO2 (38-50) mmHg Sodium (136-145) mmol/L Potassium (3.5-5.1) mmol/L Chloride 108 H (98-107) mmol/L Carbon Dioxide (21-32) mmol/L Anion Gap (3-11) BUN 38 H (7-18) mg/dl Creatinine 1.56 H D (0.6-1.4) mg/dl BUN/Creatinine Ratio 24.1 H (10-20) Glucose 147 H (70-99) mg/dl POC Glucose 144 H (70-99) mg/dl Hemoglobin A1c (4.5-5.6) % Lactate (0.4-2.0) mmol/L Calcium 7.8 L (8.5-10.1) mg/dl Phosphorus 1.7 L D (2.5-4.9) mg/dl Magnesium (1.8-2.4) mg/dl Troponin I (0-0.045) ng/ml Beta-Hydroxybutyric Acd (0.2-2.81) mg/dl Procalcitonin (0-0.5) ng/ml Urine Appearance (Clear) Urine Protein (Negative) Urine Glucose (UA) (Negative) Urine Ketones (Negative) Urine Blood (Negative) Urine RBC (Auto) (0-4) /hpf U Hyaline Cast (Auto) (0-5) /lpf U Epithel Cells (Auto) (0-5) /lpf 03/22/20 03/22/20 03/22/20 Range/Units 11:08 12:03 Unknown WBC (4.8-10.8) K/uL RBC (4.7-6.1) M/uL Hgb (14.0-18.0) g/dL Hct (42-52) % MCHC (32-36) g/dL RDW Std Deviation (36.4-46.3) fL RDW Coeff of Jace (11.5-14.5) % MPV (7.4-10.4) fL Neut # (Auto) (1.4-6.5) K/uL [place] # (Auto) (0.11-0.59) K/uL Immature Gran # (Auto) (0.00-0.02) K/uL POC pH (7.35-7.45) POC pCO2 (35-46) mmHg POC pO2 (80-95) mmHg POC HCO3 (19-24) rene/L POC Total CO2 (24-31) mmol/L POC Base Excess (-9-1.8) rene/L ABG pCO2 (35-46) mmHg ABG pO2 (80-95) mmHg POC ABG O2 Sat (90-95) % ABG O2 Saturation (90-95) % VBG pH (7.36-7.41) VBG pCO2 (38-50) mmHg Sodium (136-145) mmol/L Potassium (3.5-5.1) mmol/L Chloride (98-107) mmol/L Carbon Dioxide (21-32) mmol/L Anion Gap (3-11) BUN (7-18) mg/dl Creatinine (0.6-1.4) mg/dl BUN/Creatinine Ratio (10-20) Glucose (70-99) mg/dl POC Glucose 190 H 184 H (70-99) mg/dl Hemoglobin A1c (4.5-5.6) % Lactate (0.4-2.0) mmol/L Calcium (8.5-10.1) mg/dl Phosphorus (2.5-4.9) mg/dl Magnesium (1.8-2.4) mg/dl Troponin I (0-0.045) ng/ml Beta-Hydroxybutyric Acd (0.2-2.81) mg/dl Procalcitonin (0-0.5) ng/ml Urine Appearance Cloudy A (Clear) Urine Protein (Negative) Urine Glucose (UA) 3+ H (Negative) Urine Ketones 4+ H (Negative) Urine Blood (Negative) Urine RBC (Auto) 10-30 H (0-4) /hpf U Hyaline Cast (Auto) 5-10 H (0-5) /lpf U Epithel Cells (Auto) 10-20 H (0-5) /lpf (1) DKA (diabetic ketoacidoses) Diabetes mellitus complication detail: with coma Diabetes mellitus type: type 1 Qualified Code(s): E10.11 - Type 1 diabetes mellitus with ketoacidosis with coma
--- NOTE | 2020-03-22 09:51 | Cardiology Consultation ---
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 Globulin Albumin/Globulin Ratio Beta-Hydroxybutyric Acd Procalcitonin Urine Color Urine Appearance Urine pH Ur Specific Asher Urine Protein Urine Glucose (UA) Urine Ketones Urine Blood Urine Nitrite Urine Bilirubin Urine Urobilinogen Ur Leukocyte Esterase Urine WBC (Auto) Urine RBC (Auto) U Hyaline Cast (Auto) U Epithel Cells (Auto) Urine Bacteria (Auto) Nasal Screen MRSA (PCR) COVID-19 Eval Order COVID-19 PCR 03/22/20 03/22/20 03/22/20 07:40 07:40 08:32 WBC RBC Hgb Hct MCV MCH MCHC RDW Std Deviation RDW Coeff of Jace Plt Count MPV Immature Gran % (Auto) Neut % (Auto) Lymph % (Auto) Stone % (Auto) Eos % (Auto) Baso % (Auto) Neut # (Auto) Lymph # (Auto) Stone # (Auto) Eos # (Auto) Baso # (Auto) Immature Gran # (Auto) PT INR APTT PTT Ratio Sample Site POC pH POC pCO2 POC pO2 POC HCO3 POC Total CO2 POC Base Excess ABG pH ABG pCO2 ABG pO2 ABG HCO3 POC ABG O2 Sat ABG O2 Saturation ABG Base Excess Bharat Test VBG pH VBG pCO2 VBG pO2 VBG HCO3 VBG O2 Saturation VBG Base Excess Barometric Pressure Oxygen Given O2 Delivery Device POC O2 Rate Minute Ventilation POC FiO2 Tidal Volume PEEP Sodium Potassium Chloride Carbon Dioxide Anion Gap BUN Creatinine Est Cr Clr Drug Dosing Est GFR ( Amer) Est GFR (Non-Af Amer) BUN/Creatinine Ratio Glucose POC Glucose 116 H Estimat Average Glucose Hemoglobin A1c Lactate Calcium Phosphorus Magnesium Total Bilirubin AST ALT Alkaline Phosphatase Troponin I Total Protein Albumin Globulin Albumin/Globulin Ratio Beta-Hydroxybutyric Acd Procalcitonin Urine Color Urine Appearance Urine pH Ur Specific Asher Urine Protein Urine Glucose (UA) Urine Ketones Urine Blood Urine Nitrite Urine Bilirubin Urine Urobilinogen Ur Leukocyte Esterase Urine WBC (Auto) Urine RBC (Auto) U Hyaline Cast (Auto) U Epithel Cells (Auto) Urine Bacteria (Auto) Nasal Screen MRSA (PCR) COVID-19 Eval Order Covid19 Done at [facility] COVID-19 PCR NEGATIVE 03/22/20 03/22/20 03/22/20 09:09 09:45 Unknown WBC RBC Hgb Hct MCV MCH MCHC RDW Std Deviation RDW Coeff of Jace Plt Count MPV Immature Gran % (Auto) Neut % (Auto) Lymph % (Auto) Stone % (Auto) Eos % (Auto) Baso % (Auto) Neut # (Auto) Lymph # (Auto) Stone # (Auto) Eos # (Auto) Baso # (Auto) Immature Gran # (Auto) PT INR APTT PTT Ratio Sample Site POC pH POC pCO2 POC pO2 POC HCO3 POC Total CO2 POC Base Excess ABG pH ABG pCO2 ABG pO2 ABG HCO3 POC ABG O2 Sat ABG O2 Saturation ABG Base Excess Bharat Test VBG pH VBG pCO2 VBG pO2 VBG HCO3 VBG O2 Saturation VBG Base Excess Barometric Pressure Oxygen Given O2 Delivery Device POC O2 Rate Minute Ventilation POC FiO2 Tidal Volume PEEP Sodium Potassium Chloride Carbon Dioxide Anion Gap BUN Creatinine Est Cr Clr Drug Dosing Est GFR ( Amer) Est GFR (Non-Af Amer) BUN/Creatinine Ratio Glucose POC Glucose 104 H 107 H Estimat Average Glucose Hemoglobin A1c Lactate Calcium Phosphorus Magnesium Total Bilirubin AST ALT Alkaline Phosphatase Troponin I Total Protein Albumin Globulin Albumin/Globulin Ratio Beta-Hydroxybutyric Acd Procalcitonin Urine Color Yellow Urine Appearance Cloudy A Urine pH 5.0 Ur Specific Asher 1.028 Urine Protein Negative Urine Glucose (UA) 3+ H Urine Ketones 4+ H Urine Blood Negative Urine Nitrite Negative Urine Bilirubin Negative Urine Urobilinogen Negative Ur Leukocyte Esterase Negative Urine WBC (Auto) 1-5 Urine RBC (Auto) 10-30 H U Hyaline Cast (Auto) 5-10 H U Epithel Cells (Auto) 10-20 H Urine Bacteria (Auto) Negative Nasal Screen MRSA (PCR) COVID-19 Eval Order COVID-19 PCR (1) DKA (diabetic ketoacidoses) Diabetes mellitus complication detail: with coma Diabetes mellitus type: type 1 Qualified Code(s): E10.11 - Type 1 diabetes mellitus with ketoacidosis with coma (2) Respiratory failure Chronicity: acute Respiratory failure complication: unspecified whether with hypoxia or hypercapnia Qualified Code(s): J96.00 - Acute respiratory failure, unspecified whether with hypoxia or hypercapnia
--- NOTE | 2020-03-22 09:53 | Pharmacy Report ---
Glycemic Control Consultation - Date of Service March 22, 2020 - Scope Scope: Glycemic Pharmacist consulted for glycemic control and to write orders per [facility] inpatient glycemic control protocol. - Objective Weight: 67.6 kg Accjoshuaecks BSG (last 24hrs): 03/21/20 03/21/20 03/21/20 14:32 15:12 16:58 Glucose 961 H* POC Glucose > 600 H* > 600 H* 03/21/20 03/21/20 03/21/20 17:00 17:38 18:23 Glucose 837 H* 766 H* POC Glucose > 600 H* 03/21/20 03/21/20 03/21/20 20:12 20:24 22:19 Glucose 646 H* 497 H* POC Glucose > 600 H* 03/21/20 03/22/20 03/22/20 23:42 00:53 01:53 Glucose POC Glucose 427 H* 378 H* 330 H* 03/22/20 03/22/20 03/22/20 02:28 02:38 04:55 Glucose 289 H POC Glucose 300 H 175 H 03/22/20 03/22/20 03/22/20 06:17 06:47 07:31 Glucose 139 H POC Glucose 147 H 136 H 03/22/20 03/22/20 08:32 09:09 Glucose POC Glucose 116 H 104 H Laboratory Data (last 24hrs): 03/21/20 03/21/20 03/21/20 15:12 17:00 18:23 Potassium 7.5 H* 6.0 H D 4.6 D Carbon Dioxide 5 L* 7 L* 9 L* Anion Gap 32.0 H 27.0 H 26.0 H Creatinine 3.17 H 2.69 H D 2.83 H Est Cr Clr Drug Dosing Not Reportable Not Reportable 22.5 Beta-Hydroxybutyric Acd 120.45 H 111.76 H 105.90 H 03/21/20 03/21/20 03/22/20 20:24 22:19 02:28 Potassium 3.7 D 3.0 L D Carbon Dioxide 20 L 26 Anion Gap 18.0 H 12.0 H Creatinine 2.27 H D 2.08 H Est Cr Clr Drug Dosing 28.1 30.7 Beta-Hydroxybutyric Acd 94.15 H 74.17 H 09/07/20 06:47 Potassium 3.3 L Carbon Dioxide 27 Anion Gap 10.0 Creatinine 1.87 H Est Cr Clr Drug Dosing 34.1 Beta-Hydroxybutyric Acd HbA1c: Hemoglobin A1c 10.9 % (4.5-5.6) H 03/22/20 02:28 - Recent Pertinent Medications Outpatient Anti-diabetic Regimen: * Lantus 18 units PM, Novolog 10 units BID * A1c = 10.9 % 03/22/20 The patient is currently receiving: * Insulin gtt Risk Factors for Insulin Resistance: * IVF: per DKA protocol * Diet: NPO * Mechanical Ventilation: yes - Assessment & Plan Assessment & Plan: ASSESSMENT: * 69 year old male with PMHx significant for type 1 diabetes, htn, bipolar disorder, presenting to the ED for unresponsiveness. Per reports, patient refusing to take insulin. Patient intubated. * BSGs >600 on admission, started on insulin gtt. Continues with insulin gtt this morning. BSGs improving therefore insulin gtt rate decreasing. Last insulin rate 6 units/hr * Remains NPO/intubated this morning. Plan to start basal insulin when gtt rate more stable. Labs improving this morning, anion gap closed. Patient known to glycemic service other admissions, appears BSGs tend to be very labile * Will start home dose basal insulin at lunch to help with drip transition. Will continue drip for now and enter parameters for drip d/c when appropriate PLAN FOR INPATIENT GLYCEMIC CONTROL: * Continue insulin gtt for now * Basal insulin * Lantus 18 units x 1 * Bolus insulin - per insulin calculator * Please note that the plan above was derived based on current level of insulin resistance and hospital stress. These recommendations are appropriate for inpatient admission only. Plan of care upon discharge will need to be reassessed to avoid potential outpatient hypo/hyperglycemia. Thank you.
[2020-03-22] MEDS ORDERED: Heparin IV Adult Wt-Based Low-Dose *NO* Bolus Protocol IV SCH (10:56)
[2020-03-22] MEDS: METOPROLOL TARTRATE 1 MG/ML VIAL IV SCH ×4 (11:04→21:08)
[2020-03-22] MEDS: HEPARIN SODIUM/DEXTROSE 25,000 UNITS/500 ML BAG IV SCH (11:15)
[2020-03-22 11:16] LABS: BUN Creatinine Ratio 24.1 (10-20); Calcium 7.8 mg/dl (8.5-10.1); Creatinine Clr Calc Pharmacy 40.9 ml/min; Est GFR (African American) 52.1; Magnesium 2.1 mg/dl (1.8-2.4); Phosphorus 1.7 mg/dl (2.5-4.9); Potassium 3.8 mmol/L (3.5-5.1)
[2020-03-22] MEDS ORDERED: INSULIN GLARGINE SOLOSTAR 100 UNITS/ML 3 ML PEN SC ONE (12:30)
[2020-03-22] MEDS ORDERED: PIPERACILL/TAZOBAC CONSULT ACTIVE PRN (13:38)
[2020-03-22] MEDS ORDERED: PIPERACILLIN/TAZOBACTAM 4.5 GM in DEXTROSE 5% 100 ML IV ONE (13:45)
[2020-03-22 13:59] LABS: Base Excess ABG 3.8 mEq/L (-9-1.8); HCO3 ABG 25 mmol/L (19-24); Oxygen Saturation ABG 98.1 % (90-95); PCO2 ABG 27 mmHg (35-46); PO2 ABG 94 mmHg (80-95)
[2020-03-22 14:03] LABS: Allen Test Pos (Pos); pH ABG 7.59 (7.35-7.45)
[2020-03-22 14:18] LABS: BUN Creatinine Ratio 21.6 (10-20); Calcium 7.7 mg/dl (8.5-10.1); Creatinine Clr Calc Pharmacy 41.4 ml/min; Est GFR (African American) 52.9; Est GFR (Non-African American) 45.7; Magnesium 2.1 mg/dl (1.8-2.4); Potassium 3.6 mmol/L (3.5-5.1)
[2020-03-22 14:34] LABS: Troponin I 10.2 ng/ml (0-0.045)
[2020-03-22] MEDS ORDERED: POTASSIUM PHOSPHATE 30 MMOL in SODIUM CHLORIDE 0.9% 500 ML IV ONE (14:45)
[2020-03-22 16:11] LABS: Partial Thromboplastin Ratio 1.7
[2020-03-22 16:13] LABS: Partial Thromboplastin Time 46.1 Seconds (21.0-31.0)
[2020-03-22] MEDS: INSULIN REGULAR 250 UNITS in SODIUM CHLORIDE 0.9% 247.5 ML IV SCH (18:07)
--- NOTE | 2020-03-22 18:11 | Billing Data ---
Date of Service March 22, 2020 Coding Level of Care Code Critical Care 1st 30-74 mins Time Spent (min) 41
[2020-03-22] MEDS: PIPERACILLIN/TAZOBACTAM 4.5 GM in DEXTROSE 5% 100 ML IV SCH (21:04)
--- NOTE | 2020-03-22 21:10 | Electrocardiogram Report ---
Test Reason : Blood Pressure : / mmHG Vent. Rate : 095 BPM Atrial Rate : 095 BPM P-R Int : 140 ms QRS Dur : 086 ms QT Int : 388 ms P-R-T Axes : 063 050 083 degrees QTc Int : 487 ms Normal sinus rhythm Nonspecific ST and T wave abnormality Prolonged QT Abnormal ECG When compared with ECG of 21-MAR-2020 14:31, Premature atrial complexes are no longer Present QRS duration has decreased T wave inversion no longer evident in Inferior leads Nonspecific T wave abnormality now evident in Lateral leads Confirmed by Lio Larson ([id number]) on 03/22/2020 9:10:25 PM Referred By: REFERRED SELF Confirmed By:Lio Larson
[2020-03-22] MEDS: fentaNYL citrate 100 MCG/2 ML VIAL IV PRN (22:20)
[2020-03-23] MEDS: POTASSIUM CHLORIDE 40 MEQ in D5W AND 1/2NSS 1,000 ML IV SCH (03:42)
[2020-03-23] MEDS: METOPROLOL TARTRATE 1 MG/ML VIAL IV SCH ×3 (03:42→11:09)
[2020-03-23] MEDS: PIPERACILLIN/TAZOBACTAM 4.5 GM in DEXTROSE 5% 100 ML IV SCH ×3 (04:20→20:08)
[2020-03-23 04:27] LABS: Eosinophils # (auto) 0.01 K/uL (0-0.5); Eosinophils % (auto) 0.1 %; Hematocrit (blood only) 27.4 % (42-52); Hemoglobin 9.6 g/dL (14.0-18.0); Immature Granulocytes # (auto) 0.02 K/uL (0.00-0.02); Immature Granulocytes % (auto) 0.2 %; Lymphocytes % (auto) 7.3 %; Mean Corpuscular Hemoglobin 29.7 pg (25-34); Mean Corpuscular Volume 84.8 fL (80-100); Mean Platelet Volume 9.6 fL (7.4-10.4); Monocytes # (auto) 0.39 K/uL (0.11-0.59); Monocytes % (auto) 3.6 %; Neutrophils # (auto) 9.74 K/uL (1.4-6.5); Neutrophils % (auto) 88.8 %; Platelet Count 184 K/uL (130-400); RDW Standard Deviation 46.8 fL (36.4-46.3); Red Blood Count 3.23 M/uL (4.7-6.1); White Blood Count 10.96 K/uL (4.8-10.8)
[2020-03-23 04:46] LABS: Partial Thromboplastin Ratio 2.5
[2020-03-23 04:48] LABS: BUN Creatinine Ratio 15.8 (10-20); Calcium 7.4 mg/dl (8.5-10.1); Creatinine Clr Calc Pharmacy 53.6 ml/min; Est GFR (African American) 72.3; Est GFR (Non-African American) 62.4; Magnesium 1.8 mg/dl (1.8-2.4); Phosphorus 2.3 mg/dl (2.5-4.9); Potassium 3.8 mmol/L (3.5-5.1)
[2020-03-23 04:58] LABS: Partial Thromboplastin Time 70.5 Seconds (21.0-31.0)
[2020-03-23 05:29] LABS: iSTAT Art Bld Gas pCO2 Correct 36 mmHg (35-46); iSTAT Art Bld Gas pH Corrected 7.458 (7.35-7.45); iSTAT Arterial Blood Gas HCO3 25 meg/L (19-24); iSTAT Arterial Blood Gas pCO2 35 mmHg (35-46); iSTAT Arterial Blood Gas pH 7.47 (7.35-7.45); iSTAT Arterial Blood Gas pO2 89 mmHg (80-95); iSTAT Arterial Blood Gas pO2 C 94; iSTAT Carbon Dioxide 26 mmol/L (24-31); iSTAT FiO2 30 %; iSTAT Hematocrit 26 % (42-52); iSTAT Hemoglobin 8.8 g/dl (14.0-18.0); iSTAT Site Art Line; iSTAT Sodium 142 mmol/L (135-144)
[2020-03-23] MEDS ORDERED: INSULIN ASPART 100 UNITS/ML 3 ML PEN SC SCH ×2 (06:00→07:30)
--- NOTE | 2020-03-23 07:01 | XRay Report ---
XR chest 1V portable HISTORY: 69 years-old Male f/u acute respiratory failure COMPARISON: Chest radiograph 03/22/2020 at 7:01 AM TECHNIQUE: Portable AP view of the chest FINDINGS: Cardiac silhouette is upper limits of normal in size. Endotracheal tube overlies the midline, 3.4 cm superior to the july. Enteric tube courses below the diaphragm with distal tip outside the field-of -view. No pneumothorax, pleural effusion, airspace consolidation or overt pulmonary edema. Mild hypoi nflation. Bones of the chest appear grossly intact. Degenerative changes of the shoulders and spine. IMPRESSION: 1. No acute processes of the chest. 2. Lines and tubes as above. ACT 112: Negative or not required by law. The above report was generated using voice recognition software. It may contain grammatical, syntax o r spelling errors. Electronically signed by: Cruz Romero M.D. 03/23/2020 7:00 AM
[2020-03-23] MEDS ORDERED: VANCOMYCIN HCL 1,750 MG in SODIUM CHLORIDE 0.9% 500 ML IV ONE (07:26)
[2020-03-23] MEDS ORDERED: VANCOMYCIN CONSULT ACTIVE PRN (07:26)
[2020-03-23] MEDS: D5W AND 1/2NSS 1,000 ML IV SCH ×2 (08:32→20:08)
--- NOTE | 2020-03-23 08:35 | Critical Care Progress Note ---
Date of Service March 23, 2020 Assessment & Plan (1) Respiratory failure: Reason Critically Ill: 69y/o M who resides at the [facility] and has a past medical history of insulin-dependent diabetes type 1, hypertension, bipolar disorder who was brought to the emergency department for u nresponsiveness. Neuro: -Patient has been off Versed since 10 AM 03/22/2020 -RASS -1-0. Following commands. Cardiac/Vascular: - History paroxysmal atrial fibrillation -holding Eliquis, started on low dose Heparin drip -NSTEMI -Likely type II DC with DKA -2D echo shows good ejection fraction without wall motion abnormality -Cardiology on board Respiratory: - Acute respiratory failure -continue ventilation given DKA GI/Nutrition: - NPO - Protonix daily Renal/Lytes: - DKA: Initial volume expansion with 2 L bicarb and Normosol infusions -Continue with insulin drip until anion gap closes -Decreasing blood glucose no more than 100 in an hour -Replace potassium IV when potassium level between 3.3-5.3 -BMP every 4 hours -Continue with IV fluids -Status post CHIVO -Monitor BUN/creatinine -Avoid nephrotoxic medications -Strict ins and outs ENDO: - ICU hyperglycemia protocol - DKA protocol -Status post insulin drip -Continue with subcu insulin with correction protocol Heme: - Anemia -Appears to be at baseline - Leukocytosis -Unclear etiology --> likely from DKA -Mild elevation of procalcitonin ID: - History of COVID-19 on previous hospitalization - COVID-19 negative on 03/22 - Afebrile, no obvious concern for infectious etiology given report of refusing insulin -Given Rocephin in emergency department -On Zosyn given there is left lower lobe atelectasis/aspiration pneumonia -Follow-up blood culture and septic work-up. -Was given 1 dose of vancomycin and blood culture is positive for gram-positive cocci in clusters, it is negative for staph aureus. Lines/IV access: - PIV - Art line DVT prophylaxis: - low dose Heparin drip (2) Anemia: (3) DKA (diabetic ketoacidoses): (4) CHIVO (acute kidney injury): (5) Paroxysmal atrial fibrillation with RVR: (6) Metabolic encephalopathy: Admission and Anticipated Discharge Date Admission Date: March 21, 2020 Supervising Physician Co-Signing Physician Notes Marco Garcia was the resident-physician during care of patient. I separately evaluated patient for britton portions of the history and the exam. I was present during the critical portion of medical decision making, and I discussed the case with the resident. I generally agree with the findings and plan except for any additions/exceptions noted. Patient seen and examined at bedside. Was following commands. Getting good tidal volumes on pressure support 8\5. Patient successfully passed the SBT and was extubated to BiPAP. We will go down on his IV fluids to 75 cc an hour. Patient is +3.6 L in the last 24 hours. We will restart his p.o. metoprolol for his blood pressure. Continue with heparin drip for the time being. Once the patient is able to take p.o. apixaban will discontinue it. Troponin trending down. Patient had multiple admissions in the past where he is noncompliant with his medications. Given the patient has history of psychiatric disorder I would get a psychiatric eval for the patient to make sure that he understands that if he does not take the medications he will end up in the hospital again and again. And if he is able to make the decisions then we should not be too aggressive in his care if he comes back again to the hospital. DC Gibbs today. DC left radial A-line today. Vanco has been discontinued as a blood culture is not MRSA. I have personally spent 37 minutes of critical care time in the direct management of this patient. This is a life/limb threatening event. This includes time spent evaluating patient, direct bedside care, chart review, placing orders, interpretation of diagnostic studies, discussion with consultants, patient, and/or family members regarding treatment decisions, as well as other required patient management activities. This time is exclusive of all separately billable procedures, and teaching time and separate from and in addition to any other critical care service time. Subjective Patient had no acute events overnight. Tolerated spontaneous breathing trial early this AM, and then was subsequently extubated at 0840 without complications. Was transitioned to BiPAP, before being weaned to 2L NC without complications. Review of Systems Review of Systems: All systems reviewed & are unremarkable except as noted in Subjective Physical Exam Constitutional: WD/WN, vitals as above Eyes: PERRL, conjunctivae normal, anicteric sclerae ENMT: external ear and nose normal, oropharynx normal Respiratory: no labored breathing, no retractions and does not use accessory muscles Auscultation: + rhonchi (coarse R>L); no rales and no wheezes Cardiovascular: Rate/Rhythm: regular rate and regular rhythm Heart Sounds: no gallop, no murmur and no cardiac rub Vessels: normal peripheral pulses Gastrointestinal (Abdomen): normal bowel sounds, soft, nontender, no hepatosplenomegaly Musculoskeletal: Left BKA, right TMA Skin: no rashes, warm and dry Neurologic: PERRL, EOMI, accommodation nl, no face palsy, no dysarthria Psychiatric: Orientation: alert and oriented x 3 Lymphatic: no cervical lymphadenopathy Results & Data Results & Data ([facility]) Vital Signs (Past 12 Hours) Vital Signs Pulse Resp BP Pulse Ox 03/23/20 07:32 83 129/43 L 03/23/20 07:17 82 15 100 03/23/20 06:40 83 138/47 L 03/23/20 05:17 87 19 99 03/23/20 04:00 113/41 L 03/23/20 03:42 81 151/56 H 03/23/20 03:00 81 100 03/23/20 02:49 82 112/77 100 03/23/20 02:34 77 144/51 H 100 03/23/20 02:33 78 13 100 03/23/20 02:19 78 141/51 H 100 03/23/20 02:04 82 166/89 H 100 03/23/20 02:00 81 100 03/23/20 01:49 77 137/102 H 100 03/23/20 01:34 81 156/53 H 100 03/23/20 01:19 79 149/76 H 100 03/23/20 01:04 78 151/55 H 100 03/23/20 01:00 73 100 03/23/20 00:49 75 141/50 H 100 03/23/20 00:34 74 131/54 L 100 03/23/20 00:19 74 130/49 L 100 03/23/20 00:04 72 123/45 L 100 03/23/20 00:00 73 137/50 L 100 03/22/20 23:49 72 123/46 L 100 03/22/20 23:34 74 121/48 L 100 03/22/20 23:19 75 117/47 L 100 03/22/20 23:08 75 12 100 03/22/20 23:04 75 109/46 L 99 03/22/20 23:00 76 99 03/22/20 22:49 80 118/48 L 98 03/22/20 22:20 89 96/56 L 100 03/22/20 22:05 87 110/74 99 03/22/20 22:00 87 99 03/22/20 21:49 81 129/65 99 03/22/20 21:34 88 125/96 99 03/22/20 21:19 86 105/79 100 03/22/20 21:08 88 155/69 H 03/22/20 21:05 91 H 155/69 H 100 03/22/20 21:00 92 H 100 Laboratory Results 03/23/20 03/23/20 03/23/20 Range/Units 05:16 04:19 04:19 WBC (4.8-10.8) K/uL RBC (4.7-6.1) M/uL Hgb (14.0-18.0) g/dL POC Hgb 8.8 L (14.0-18.0) g/dl Hct (42-52) % POC Hct 26 L (42-52) % MCV (80-100) fL MCH (25-34) pg MCHC (32-36) g/dL RDW Std Deviation (36.4-46.3) fL RDW Coeff of Jace (11.5-14.5) % Plt Count (130-400) K/uL MPV (7.4-10.4) fL Immature Gran % (Auto) % Neut % (Auto) % Lymph % (Auto) % [place] % (Auto) % Eos % (Auto) % Baso % (Auto) % Neut # (Auto) (1.4-6.5) K/uL Lymph # (Auto) (1.2-3.4) K/uL [place] # (Auto) (0.11-0.59) K/uL Eos # (Auto) (0-0.5) K/uL Baso # (Auto) (0-0.2) K/uL Immature Gran # (Auto) (0.00-0.02) K/uL APTT 70.5 H* (21.0-31.0) Seconds PTT Ratio 2.5 Sample Site Art Line POC pH 7.47 H (7.35-7.45) POC pCO2 35 (35-46) mmHg POC pO2 89 (80-95) mmHg POC HCO3 25 H (19-24) rene/L POC Total CO2 26 (24-31) mmol/L POC Base Excess 2.0 H (-9-1.8) rene/L ABG pH (7.35-7.45) ABG pH (Temp Correct) 7.458 H (7.35-7.45) ABG pCO2 (35-46) mmHg ABG pCO2 (Temp Corrct 36 (35-46) mmHg ABG pO2 (80-95) mmHg POC ABG pO2 at Pt Temp 94 ABG HCO3 (19-24) mmol/L POC ABG O2 Sat 97.0 H (90-95) % ABG O2 Saturation (90-95) % ABG Base Excess (-9-1.8) mEq/L Bharat Test NA (Pos) VBG pH (7.36-7.41) Barometric Pressure mm/Hg Oxygen Given O2 Delivery Device Ventilator POC O2 Rate 12 Minute Ventilation 4.8 POC FiO2 30 % Tidal Volume 400 PEEP 5 POC Sodium 142 (135-144) mmol/L Sodium (136-145) mmol/L POC Potassium 4.0 (3.3-5.0) mmol/L Potassium (3.5-5.1) mmol/L Chloride (98-107) mmol/L Carbon Dioxide (21-32) mmol/L Anion Gap (3-11) BUN (7-18) mg/dl Creatinine (0.6-1.4) mg/dl Est Cr Clr Drug Dosing ml/min Est GFR ( Amer) Est GFR (Non-Af Amer) BUN/Creatinine Ratio (10-20) Glucose (70-99) mg/dl POC Glucose (70-99) mg/dl Calcium (8.5-10.1) mg/dl Phosphorus (2.5-4.9) mg/dl Magnesium (1.8-2.4) mg/dl Troponin I (0-0.045) ng/ml Procalcitonin 0.82 H (0-0.5) ng/ml COVID-19 PCR (Negative) Bld Cult Staph aureus PCR (Negative) Blood Culture MRSA PCR (Negative) 03/23/20 03/23/20 03/23/20 Range/Units 04:19 04:19 04:19 WBC 10.96 H (4.8-10.8) K/uL RBC 3.23 L (4.7-6.1) M/uL Hgb 9.6 L (14.0-18.0) g/dL POC Hgb (14.0-18.0) g/dl Hct 27.4 L (42-52) % POC Hct (42-52) % MCV 84.8 (80-100) fL MCH 29.7 (25-34) pg MCHC 35.0 (32-36) g/dL RDW Std Deviation 46.8 H (36.4-46.3) fL RDW Coeff of Jace 15.0 H (11.5-14.5) % Plt Count 184 (130-400) K/uL MPV 9.6 (7.4-10.4) fL Immature Gran % (Auto) 0.2 % Neut % (Auto) 88.8 % Lymph % (Auto) 7.3 % [place] % (Auto) 3.6 % Eos % (Auto) 0.1 % Baso % (Auto) 0.0 % Neut # (Auto) 9.74 H (1.4-6.5) K/uL Lymph # (Auto) 0.80 L (1.2-3.4) K/uL [place] # (Auto) 0.39 (0.11-0.59) K/uL Eos # (Auto) 0.01 (0-0.5) K/uL Baso # (Auto) 0.00 (0-0.2) K/uL Immature Gran # (Auto) 0.02 (0.00-0.02) K/uL APTT (21.0-31.0) Seconds PTT Ratio Sample Site POC pH (7.35-7.45) POC pCO2 (35-46) mmHg POC pO2 (80-95) mmHg POC HCO3 (19-24) rene/L POC Total CO2 (24-31) mmol/L POC Base Excess (-9-1.8) rene/L ABG pH (7.35-7.45) ABG pH (Temp Correct) (7.35-7.45) ABG pCO2 (35-46) mmHg ABG pCO2 (Temp Corrct (35-46) mmHg ABG pO2 (80-95) mmHg POC ABG pO2 at Pt Temp ABG HCO3 (19-24) mmol/L POC ABG O2 Sat (90-95) % ABG O2 Saturation (90-95) % ABG Base Excess (-9-1.8) mEq/L Bharat Test (Pos) VBG pH 7.46 H (7.36-7.41) Barometric Pressure mm/Hg Oxygen Given O2 Delivery Device POC O2 Rate Minute Ventilation POC FiO2 % Tidal Volume PEEP POC Sodium (135-144) mmol/L Sodium 143 (136-145) mmol/L POC Potassium (3.3-5.0) mmol/L Potassium 3.8 (3.5-5.1) mmol/L Chloride 112 H (98-107) mmol/L Carbon Dioxide 25 (21-32) mmol/L Anion Gap 6.0 (3-11) BUN 19 H (7-18) mg/dl Creatinine 1.19 D (0.6-1.4) mg/dl Est Cr Clr Drug Dosing 53.6 ml/min Est GFR ( Amer) 72.3 Est GFR (Non-Af Amer) 62.4 BUN/Creatinine Ratio 15.8 (10-20) Glucose 124 H (70-99) mg/dl POC Glucose (70-99) mg/dl Calcium 7.4 L (8.5-10.1) mg/dl Phosphorus 2.3 L D (2.5-4.9) mg/dl Magnesium 1.8 (1.8-2.4) mg/dl Troponin I (0-0.045) ng/ml Procalcitonin (0-0.5) ng/ml COVID-19 PCR (Negative) Bld Cult Staph aureus PCR (Negative) Blood Culture MRSA PCR (Negative) 03/23/20 03/23/20 03/22/20 Range/Units 03:38 00:14 23:38 WBC (4.8-10.8) K/uL RBC (4.7-6.1) M/uL Hgb (14.0-18.0) g/dL POC Hgb (14.0-18.0) g/dl Hct (42-52) % POC Hct (42-52) % MCV (80-100) fL MCH (25-34) pg MCHC (32-36) g/dL RDW Std Deviation (36.4-46.3) fL RDW Coeff of Jace (11.5-14.5) % Plt Count (130-400) K/uL MPV (7.4-10.4) fL Immature Gran % (Auto) % Neut % (Auto) % Lymph % (Auto) % [place] % (Auto) % Eos % (Auto) % Baso % (Auto) % Neut # (Auto) (1.4-6.5) K/uL Lymph # (Auto) (1.2-3.4) K/uL [place] # (Auto) (0.11-0.59) K/uL Eos # (Auto) (0-0.5) K/uL Baso # (Auto) (0-0.2) K/uL Immature Gran # (Auto) (0.00-0.02) K/uL APTT (21.0-31.0) Seconds PTT Ratio Sample Site POC pH (7.35-7.45) POC pCO2 (35-46) mmHg POC pO2 (80-95) mmHg POC HCO3 (19-24) rene/L POC Total CO2 (24-31) mmol/L POC Base Excess (-9-1.8) rene/L ABG pH (7.35-7.45) ABG pH (Temp Correct) (7.35-7.45) ABG pCO2 (35-46) mmHg ABG pCO2 (Temp Corrct (35-46) mmHg ABG pO2 (80-95) mmHg POC ABG pO2 at Pt Temp ABG HCO3 (19-24) mmol/L POC ABG O2 Sat (90-95) % ABG O2 Saturation (90-95) % ABG Base Excess (-9-1.8) mEq/L Bharat Test (Pos) VBG pH (7.36-7.41) Barometric Pressure mm/Hg Oxygen Given O2 Delivery Device POC O2 Rate Minute Ventilation POC FiO2 % Tidal Volume PEEP POC Sodium (135-144) mmol/L Sodium (136-145) mmol/L POC Potassium (3.3-5.0) mmol/L Potassium (3.5-5.1) mmol/L Chloride (98-107) mmol/L Carbon Dioxide (21-32) mmol/L Anion Gap (3-11) BUN (7-18) mg/dl Creatinine (0.6-1.4) mg/dl Est Cr Clr Drug Dosing ml/min Est GFR ( Amer) Est GFR (Non-Af Amer) BUN/Creatinine Ratio (10-20) Glucose (70-99) mg/dl POC Glucose 130 H 124 H (70-99) mg/dl Calcium (8.5-10.1) mg/dl Phosphorus (2.5-4.9) mg/dl Magnesium (1.8-2.4) mg/dl Troponin I 5.540 H* (0-0.045) ng/ml Procalcitonin (0-0.5) ng/ml COVID-19 PCR (Negative) Bld Cult Staph aureus PCR (Negative) Blood Culture MRSA PCR (Negative) 03/22/20 03/22/20 03/22/20 Range/Units 21:27 19:19 17:44 WBC (4.8-10.8) K/uL RBC (4.7-6.1) M/uL Hgb (14.0-18.0) g/dL POC Hgb (14.0-18.0) g/dl Hct (42-52) % POC Hct (42-52) % MCV (80-100) fL MCH (25-34) pg MCHC (32-36) g/dL RDW Std Deviation (36.4-46.3) fL RDW Coeff of Jace (11.5-14.5) % Plt Count (130-400) K/uL MPV (7.4-10.4) fL Immature Gran % (Auto) % Neut % (Auto) % Lymph % (Auto) % [place] % (Auto) % Eos % (Auto) % Baso % (Auto) % Neut # (Auto) (1.4-6.5) K/uL Lymph # (Auto) (1.2-3.4) K/uL [place] # (Auto) (0.11-0.59) K/uL Eos # (Auto) (0-0.5) K/uL Baso # (Auto) (0-0.2) K/uL Immature Gran # (Auto) (0.00-0.02) K/uL APTT (21.0-31.0) Seconds PTT Ratio Sample Site POC pH (7.35-7.45) POC pCO2 (35-46) mmHg POC pO2 (80-95) mmHg POC HCO3 (19-24) rene/L POC Total CO2 (24-31) mmol/L POC Base Excess (-9-1.8) rene/L ABG pH (7.35-7.45) ABG pH (Temp Correct) (7.35-7.45) ABG pCO2 (35-46) mmHg ABG pCO2 (Temp Corrct (35-46) mmHg ABG pO2 (80-95) mmHg POC ABG pO2 at Pt Temp ABG HCO3 (19-24) mmol/L POC ABG O2 Sat (90-95) % ABG O2 Saturation (90-95) % ABG Base Excess (-9-1.8) mEq/L Bharat Test (Pos) VBG pH (7.36-7.41) Barometric Pressure mm/Hg Oxygen Given O2 Delivery Device POC O2 Rate Minute Ventilation POC FiO2 % Tidal Volume PEEP POC Sodium (135-144) mmol/L Sodium (136-145) mmol/L POC Potassium (3.3-5.0) mmol/L Potassium (3.5-5.1) mmol/L Chloride (98-107) mmol/L Carbon Dioxide (21-32) mmol/L Anion Gap (3-11) BUN (7-18) mg/dl Creatinine (0.6-1.4) mg/dl Est Cr Clr Drug Dosing ml/min Est GFR ( Amer) Est GFR (Non-Af Amer) BUN/Creatinine Ratio (10-20) Glucose (70-99) mg/dl POC Glucose 132 H 131 H 141 H (70-99) mg/dl Calcium (8.5-10.1) mg/dl Phosphorus (2.5-4.9) mg/dl Magnesium (1.8-2.4) mg/dl Troponin I (0-0.045) ng/ml Procalcitonin (0-0.5) ng/ml COVID-19 PCR (Negative) Bld Cult Staph aureus PCR (Negative) Blood Culture MRSA PCR (Negative) 03/22/20 03/22/20 03/22/20 Range/Units 15:43 15:36 14:38 WBC (4.8-10.8) K/uL RBC (4.7-6.1) M/uL Hgb (14.0-18.0) g/dL POC Hgb (14.0-18.0) g/dl Hct (42-52) % POC Hct (42-52) % MCV (80-100) fL MCH (25-34) pg MCHC (32-36) g/dL RDW Std Deviation (36.4-46.3) fL RDW Coeff of Jace (11.5-14.5) % Plt Count (130-400) K/uL MPV (7.4-10.4) fL Immature Gran % (Auto) % Neut % (Auto) % Lymph % (Auto) % [place] % (Auto) % Eos % (Auto) % Baso % (Auto) % Neut # (Auto) (1.4-6.5) K/uL Lymph # (Auto) (1.2-3.4) K/uL [place] # (Auto) (0.11-0.59) K/uL Eos # (Auto) (0-0.5) K/uL Baso # (Auto) (0-0.2) K/uL Immature Gran # (Auto) (0.00-0.02) K/uL APTT 46.1 H* (21.0-31.0) Seconds PTT Ratio 1.7 Sample Site POC pH (7.35-7.45) POC pCO2 (35-46) mmHg POC pO2 (80-95) mmHg POC HCO3 (19-24) rene/L POC Total CO2 (24-31) mmol/L POC Base Excess (-9-1.8) rene/L ABG pH (7.35-7.45) ABG pH (Temp Correct) (7.35-7.45) ABG pCO2 (35-46) mmHg ABG pCO2 (Temp Corrct (35-46) mmHg ABG pO2 (80-95) mmHg POC ABG pO2 at Pt Temp ABG HCO3 (19-24) mmol/L POC ABG O2 Sat (90-95) % ABG O2 Saturation (90-95) % ABG Base Excess (-9-1.8) mEq/L Bharat Test (Pos) VBG pH (7.36-7.41) Barometric Pressure mm/Hg Oxygen Given O2 Delivery Device POC O2 Rate Minute Ventilation POC FiO2 % Tidal Volume PEEP POC Sodium (135-144) mmol/L Sodium (136-145) mmol/L POC Potassium (3.3-5.0) mmol/L Potassium (3.5-5.1) mmol/L Chloride (98-107) mmol/L Carbon Dioxide (21-32) mmol/L Anion Gap (3-11) BUN (7-18) mg/dl Creatinine (0.6-1.4) mg/dl Est Cr Clr Drug Dosing ml/min Est GFR ( Amer) Est GFR (Non-Af Amer) BUN/Creatinine Ratio (10-20) Glucose (70-99) mg/dl POC Glucose 154 H 166 H (70-99) mg/dl Calcium (8.5-10.1) mg/dl Phosphorus (2.5-4.9) mg/dl Magnesium (1.8-2.4) mg/dl Troponin I (0-0.045) ng/ml Procalcitonin (0-0.5) ng/ml COVID-19 PCR (Negative) Bld Cult Staph aureus PCR (Negative) Blood Culture MRSA PCR (Negative) 03/22/20 03/22/20 03/22/20 Range/Units 13:46 13:46 13:44 WBC (4.8-10.8) K/uL RBC (4.7-6.1) M/uL Hgb (14.0-18.0) g/dL POC Hgb (14.0-18.0) g/dl Hct (42-52) % POC Hct (42-52) % MCV (80-100) fL MCH (25-34) pg MCHC (32-36) g/dL RDW Std Deviation (36.4-46.3) fL RDW Coeff of Jace (11.5-14.5) % Plt Count (130-400) K/uL MPV (7.4-10.4) fL Immature Gran % (Auto) % Neut % (Auto) % Lymph % (Auto) % [place] % (Auto) % Eos % (Auto) % Baso % (Auto) % Neut # (Auto) (1.4-6.5) K/uL Lymph # (Auto) (1.2-3.4) K/uL [place] # (Auto) (0.11-0.59) K/uL Eos # (Auto) (0-0.5) K/uL Baso # (Auto) (0-0.2) K/uL Immature Gran # (Auto) (0.00-0.02) K/uL APTT (21.0-31.0) Seconds PTT Ratio Sample Site POC pH (7.35-7.45) POC pCO2 (35-46) mmHg POC pO2 (80-95) mmHg POC HCO3 (19-24) rene/L POC Total CO2 (24-31) mmol/L POC Base Excess (-9-1.8) rene/L ABG pH 7.59 H* (7.35-7.45) ABG pH (Temp Correct) (7.35-7.45) ABG pCO2 27 L (35-46) mmHg ABG pCO2 (Temp Corrct (35-46) mmHg ABG pO2 94 (80-95) mmHg POC ABG pO2 at Pt Temp ABG HCO3 25 H (19-24) mmol/L POC ABG O2 Sat (90-95) % ABG O2 Saturation 98.1 H (90-95) % ABG Base Excess 3.8 H (-9-1.8) mEq/L Bharat Test Pos (Pos) VBG pH (7.36-7.41) Barometric Pressure 732.3 mm/Hg Oxygen Given 30% O2 Delivery Device POC O2 Rate Minute Ventilation POC FiO2 % Tidal Volume PEEP POC Sodium (135-144) mmol/L Sodium 142 (136-145) mmol/L POC Potassium (3.3-5.0) mmol/L Potassium 3.6 (3.5-5.1) mmol/L Chloride 109 H (98-107) mmol/L Carbon Dioxide 25 (21-32) mmol/L Anion Gap 8.0 (3-11) BUN 33 H (7-18) mg/dl Creatinine 1.54 H (0.6-1.4) mg/dl Est Cr Clr Drug Dosing 41.4 ml/min Est GFR ( Amer) 52.9 Est GFR (Non-Af Amer) 45.7 BUN/Creatinine Ratio 21.6 H (10-20) Glucose 168 H (70-99) mg/dl POC Glucose (70-99) mg/dl Calcium 7.7 L (8.5-10.1) mg/dl Phosphorus 1.0 L* (2.5-4.9) mg/dl Magnesium 2.1 (1.8-2.4) mg/dl Troponin I 10.200 H* (0-0.045) ng/ml Procalcitonin 1.64 H (0-0.5) ng/ml COVID-19 PCR (Negative) Bld Cult Staph aureus PCR (Negative) Blood Culture MRSA PCR (Negative) 03/22/20 03/22/20 03/22/20 Range/Units 13:34 12:03 11:08 WBC (4.8-10.8) K/uL RBC (4.7-6.1) M/uL Hgb (14.0-18.0) g/dL POC Hgb (14.0-18.0) g/dl Hct (42-52) % POC Hct (42-52) % MCV (80-100) fL MCH (25-34) pg MCHC (32-36) g/dL RDW Std Deviation (36.4-46.3) fL RDW Coeff of Jace (11.5-14.5) % Plt Count (130-400) K/uL MPV (7.4-10.4) fL Immature Gran % (Auto) % Neut % (Auto) % Lymph % (Auto) % [place] % (Auto) % Eos % (Auto) % Baso % (Auto) % Neut # (Auto) (1.4-6.5) K/uL Lymph # (Auto) (1.2-3.4) K/uL [place] # (Auto) (0.11-0.59) K/uL Eos # (Auto) (0-0.5) K/uL Baso # (Auto) (0-0.2) K/uL Immature Gran # (Auto) (0.00-0.02) K/uL APTT (21.0-31.0) Seconds PTT Ratio Sample Site POC pH (7.35-7.45) POC pCO2 (35-46) mmHg POC pO2 (80-95) mmHg POC HCO3 (19-24) rene/L POC Total CO2 (24-31) mmol/L POC Base Excess (-9-1.8) rene/L ABG pH (7.35-7.45) ABG pH (Temp Correct) (7.35-7.45) ABG pCO2 (35-46) mmHg ABG pCO2 (Temp Corrct (35-46) mmHg ABG pO2 (80-95) mmHg POC ABG pO2 at Pt Temp ABG HCO3 (19-24) mmol/L POC ABG O2 Sat (90-95) % ABG O2 Saturation (90-95) % ABG Base Excess (-9-1.8) mEq/L Bharat Test (Pos) VBG pH (7.36-7.41) Barometric Pressure mm/Hg Oxygen Given O2 Delivery Device POC O2 Rate Minute Ventilation POC FiO2 % Tidal Volume PEEP POC Sodium (135-144) mmol/L Sodium (136-145) mmol/L POC Potassium (3.3-5.0) mmol/L Potassium (3.5-5.1) mmol/L Chloride (98-107) mmol/L Carbon Dioxide (21-32) mmol/L Anion Gap (3-11) BUN (7-18) mg/dl Creatinine (0.6-1.4) mg/dl Est Cr Clr Drug Dosing ml/min Est GFR ( Amer) Est GFR (Non-Af Amer) BUN/Creatinine Ratio (10-20) Glucose (70-99) mg/dl POC Glucose 165 H 184 H 190 H (70-99) mg/dl Calcium (8.5-10.1) mg/dl Phosphorus (2.5-4.9) mg/dl Magnesium (1.8-2.4) mg/dl Troponin I (0-0.045) ng/ml Procalcitonin (0-0.5) ng/ml COVID-19 PCR (Negative) Bld Cult Staph aureus PCR (Negative) Blood Culture MRSA PCR (Negative) 03/22/20 03/22/20 03/22/20 Range/Units 10:37 10:29 10:29 WBC (4.8-10.8) K/uL RBC (4.7-6.1) M/uL Hgb (14.0-18.0) g/dL POC Hgb (14.0-18.0) g/dl Hct (42-52) % POC Hct (42-52) % MCV (80-100) fL MCH (25-34) pg MCHC (32-36) g/dL RDW Std Deviation (36.4-46.3) fL RDW Coeff of Jace (11.5-14.5) % Plt Count (130-400) K/uL MPV (7.4-10.4) fL Immature Gran % (Auto) % Neut % (Auto) % Lymph % (Auto) % [place] % (Auto) % Eos % (Auto) % Baso % (Auto) % Neut # (Auto) (1.4-6.5) K/uL Lymph # (Auto) (1.2-3.4) K/uL [place] # (Auto) (0.11-0.59) K/uL Eos # (Auto) (0-0.5) K/uL Baso # (Auto) (0-0.2) K/uL Immature Gran # (Auto) (0.00-0.02) K/uL APTT (21.0-31.0) Seconds PTT Ratio Sample Site POC pH (7.35-7.45) POC pCO2 (35-46) mmHg POC pO2 (80-95) mmHg POC HCO3 (19-24) rene/L POC Total CO2 (24-31) mmol/L POC Base Excess (-9-1.8) rene/L ABG pH (7.35-7.45) ABG pH (Temp Correct) (7.35-7.45) ABG pCO2 (35-46) mmHg ABG pCO2 (Temp Corrct (35-46) mmHg ABG pO2 (80-95) mmHg POC ABG pO2 at Pt Temp ABG HCO3 (19-24) mmol/L POC ABG O2 Sat (90-95) % ABG O2 Saturation (90-95) % ABG Base Excess (-9-1.8) mEq/L Bharat Test (Pos) VBG pH 7.56 H (7.36-7.41) Barometric Pressure mm/Hg Oxygen Given O2 Delivery Device POC O2 Rate Minute Ventilation POC FiO2 % Tidal Volume PEEP POC Sodium (135-144) mmol/L Sodium 144 (136-145) mmol/L POC Potassium (3.3-5.0) mmol/L Potassium 3.8 D (3.5-5.1) mmol/L Chloride 108 H (98-107) mmol/L Carbon Dioxide 25 (21-32) mmol/L Anion Gap 11.0 (3-11) BUN 38 H (7-18) mg/dl Creatinine 1.56 H D (0.6-1.4) mg/dl Est Cr Clr Drug Dosing 40.9 ml/min Est GFR ( Amer) 52.1 Est GFR (Non-Af Amer) 45.0 BUN/Creatinine Ratio 24.1 H (10-20) Glucose 147 H (70-99) mg/dl POC Glucose 144 H (70-99) mg/dl Calcium 7.8 L (8.5-10.1) mg/dl Phosphorus 1.7 L D (2.5-4.9) mg/dl Magnesium 2.1 (1.8-2.4) mg/dl Troponin I (0-0.045) ng/ml Procalcitonin (0-0.5) ng/ml COVID-19 PCR (Negative) Bld Cult Staph aureus PCR (Negative) Blood Culture MRSA PCR (Negative) 03/22/20 03/22/20 03/22/20 Range/Units 09:45 09:09 08:32 WBC (4.8-10.8) K/uL RBC (4.7-6.1) M/uL Hgb (14.0-18.0) g/dL POC Hgb (14.0-18.0) g/dl Hct (42-52) % POC Hct (42-52) % MCV (80-100) fL MCH (25-34) pg MCHC (32-36) g/dL RDW Std Deviation (36.4-46.3) fL RDW Coeff of Jace (11.5-14.5) % Plt Count (130-400) K/uL MPV (7.4-10.4) fL Immature Gran % (Auto) % Neut % (Auto) % Lymph % (Auto) % [place] % (Auto) % Eos % (Auto) % Baso % (Auto) % Neut # (Auto) (1.4-6.5) K/uL Lymph # (Auto) (1.2-3.4) K/uL [place] # (Auto) (0.11-0.59) K/uL Eos # (Auto) (0-0.5) K/uL Baso # (Auto) (0-0.2) K/uL Immature Gran # (Auto) (0.00-0.02) K/uL APTT (21.0-31.0) Seconds PTT Ratio Sample Site POC pH (7.35-7.45) POC pCO2 (35-46) mmHg POC pO2 (80-95) mmHg POC HCO3 (19-24) rene/L POC Total CO2 (24-31) mmol/L POC Base Excess (-9-1.8) rene/L ABG pH (7.35-7.45) ABG pH (Temp Correct) (7.35-7.45) ABG pCO2 (35-46) mmHg ABG pCO2 (Temp Corrct (35-46) mmHg ABG pO2 (80-95) mmHg POC ABG pO2 at Pt Temp ABG HCO3 (19-24) mmol/L POC ABG O2 Sat (90-95) % ABG O2 Saturation (90-95) % ABG Base Excess (-9-1.8) mEq/L Bharat Test (Pos) VBG pH (7.36-7.41) Barometric Pressure mm/Hg Oxygen Given O2 Delivery Device POC O2 Rate Minute Ventilation POC FiO2 % Tidal Volume PEEP POC Sodium (135-144) mmol/L Sodium (136-145) mmol/L POC Potassium (3.3-5.0) mmol/L Potassium (3.5-5.1) mmol/L Chloride (98-107) mmol/L Carbon Dioxide (21-32) mmol/L Anion Gap (3-11) BUN (7-18) mg/dl Creatinine (0.6-1.4) mg/dl Est Cr Clr Drug Dosing ml/min Est GFR ( Amer) Est GFR (Non-Af Amer) BUN/Creatinine Ratio (10-20) Glucose (70-99) mg/dl POC Glucose 107 H 104 H 116 H (70-99) mg/dl Calcium (8.5-10.1) mg/dl Phosphorus (2.5-4.9) mg/dl Magnesium (1.8-2.4) mg/dl Troponin I (0-0.045) ng/ml Procalcitonin (0-0.5) ng/ml COVID-19 PCR (Negative) Bld Cult Staph aureus PCR (Negative) Blood Culture MRSA PCR (Negative) 03/22/20 03/22/20 03/21/20 Range/Units 07:40 06:47 15:19 WBC (4.8-10.8) K/uL RBC (4.7-6.1) M/uL Hgb (14.0-18.0) g/dL POC Hgb (14.0-18.0) g/dl Hct (42-52) % POC Hct (42-52) % MCV (80-100) fL MCH (25-34) pg MCHC (32-36) g/dL RDW Std Deviation (36.4-46.3) fL RDW Coeff of Jace (11.5-14.5) % Plt Count (130-400) K/uL MPV (7.4-10.4) fL Immature Gran % (Auto) % Neut % (Auto) % Lymph % (Auto) % [place] % (Auto) % Eos % (Auto) % Baso % (Auto) % Neut # (Auto) (1.4-6.5) K/uL Lymph # (Auto) (1.2-3.4) K/uL [place] # (Auto) (0.11-0.59) K/uL Eos # (Auto) (0-0.5) K/uL Baso # (Auto) (0-0.2) K/uL Immature Gran # (Auto) (0.00-0.02) K/uL APTT (21.0-31.0) Seconds PTT Ratio Sample Site POC pH (7.35-7.45) POC pCO2 (35-46) mmHg POC pO2 (80-95) mmHg POC HCO3 (19-24) rene/L POC Total CO2 (24-31) mmol/L POC Base Excess (-9-1.8) rene/L ABG pH (7.35-7.45) ABG pH (Temp Correct) (7.35-7.45) ABG pCO2 (35-46) mmHg ABG pCO2 (Temp Corrct (35-46) mmHg ABG pO2 (80-95) mmHg POC ABG pO2 at Pt Temp ABG HCO3 (19-24) mmol/L POC ABG O2 Sat (90-95) % ABG O2 Saturation (90-95) % ABG Base Excess (-9-1.8) mEq/L Bharat Test (Pos) VBG pH (7.36-7.41) Barometric Pressure mm/Hg Oxygen Given O2 Delivery Device POC O2 Rate Minute Ventilation POC FiO2 % Tidal Volume PEEP POC Sodium (135-144) mmol/L Sodium (136-145) mmol/L POC Potassium (3.3-5.0) mmol/L Potassium (3.5-5.1) mmol/L Chloride (98-107) mmol/L Carbon Dioxide (21-32) mmol/L Anion Gap (3-11) BUN (7-18) mg/dl Creatinine (0.6-1.4) mg/dl Est Cr Clr Drug Dosing ml/min Est GFR ( Amer) Est GFR (Non-Af Amer) BUN/Creatinine Ratio (10-20) Glucose (70-99) mg/dl POC Glucose (70-99) mg/dl Calcium (8.5-10.1) mg/dl Phosphorus (2.5-4.9) mg/dl Magnesium (1.8-2.4) mg/dl Troponin I 13.700 H* (0-0.045) ng/ml Procalcitonin (0-0.5) ng/ml COVID-19 PCR NEGATIVE (Negative) Bld Cult Staph aureus PCR Negative (Negative) Blood Culture MRSA PCR Negative (Negative) Medications Administered Current Inpatient Medications Dextrose (Dextrose 50% 50 Ml Syringe) 25 - 50 ml IV UD PRN; Protocol PRN Reason: Hypoglycemia Protocol Stop: 04/20/20 16:59 Fentanyl Citrate (Fentanyl Citrate 100 Mcg/2 Ml Vial) 100 mcg IV Q2H PRN PRN Reason: Severe Pain (7,8,9,10) on NRS Stop: 04/04/20 19:08 Last Admin: 03/22/20 22:20 Dose: 100 mcg Documented by: Glucagon (Glucagon For Inj 1 Mg Vial) 1 mg IM UD PRN; Protocol PRN Reason: Hypoglycemia Protocol Stop: 04/20/20 16:59 Glucose (Glucose 40% Gel 15 Gm Tube) 15 - 30 gm PO UD PRN; Protocol PRN Reason: Hypoglycemia Protocol Stop: 04/20/20 16:59 Glucose (Glucose 10 Tabs/Tube) 4 - 8 tabs PO UD PRN; Protocol PRN Reason: Hypoglycemia Protocol Stop: 04/20/20 16:59 Midazolam HCl (Versed) 125 mg in 250 mls @ 4 mls/hr IV .[id number] PRN; Protocol PRN Reason: Agitation Stop: 04/20/20 16:09 Last Titration: 03/22/20 09:48 Dose: Infused Documented by: Pantoprazole Sodium 40 mg/ (Syringe) 10 mls @ 5 mls/min IV DAILY@1100 AYDEN Stop: 04/21/20 10:59 Last Admin: 03/22/20 08:29 Dose: 5 mls/min Documented by: Heparin Sodium/Dextrose (Heparin Sodium/Dextrose) 25,000 units in 500 mls @ 15 mls/hr IV .Q24H AYDEN; Protocol Stop: 04/21/20 10:59 Last Titration: 03/23/20 07:05 Dose: 750 units/hr, 15 mls/hr Documented by: Piperacillin Sod/Tazobactam (Sod 4.5 gm/ Dextrose) 120 mls @ 30 mls/hr IV Q8H AYDEN; Protocol Stop: 03/24/20 19:59 Last Infusion: 03/23/20 08:29 Dose: Infused Documented by: Vancomycin HCl 1,750 mg/ (Sodium Chloride) 535 mls @ 200 mls/hr IV NOW ONE Stop: 03/23/20 10:06 Last Admin: 03/23/20 08:11 Dose: 200 mls/hr Documented by: Dextrose/Sodium Chloride (D5w And 1/2nss) 1,000 mls @ 75 mls/hr IV .[id number] [facility] Stop: 04/21/20 05:29 Last Admin: 03/23/20 08:32 Dose: 75 mls/hr Documented by: Insulin Aspart (Insulin Aspart 100 Units/Ml 3 Ml Pen) 0 units SC Q6 AYDEN Stop: 04/22/20 05:59 Last Admin: 03/23/20 06:35 Dose: Not Given Documented by: Metoprolol Tartrate (Metoprolol Tartrate 1 Mg/Ml Vial) 2.5 mg IV Q4H AYDEN Stop: 04/21/20 10:29 Last Admin: 03/23/20 06:40 Dose: 2.5 mg Documented by: Midazolam HCl (Midazolam Bolus From Bag) 2 mg IV Q60M PRN PRN Reason: Sedation Stop: 04/20/20 16:09 Miscellaneous (Carbohydrates For Hypoglycemia ) 15 - 30 gm PO UD PRN PRN Reason: Hypoglycemia Treatment Stop: 04/20/20 16:59 Miscellaneous Information (Pharmacy Glycemic Mgmt Consult) 1 ea N/A UD PRN PRN Reason: Consult Stop: 04/21/20 09:14 Miscellaneous Information (Piperacill/Tazobac Consult Active) 1 ea N/A UD PRN PRN Reason: Consult Stop: 04/21/20 13:37 Miscellaneous Information (Vancomycin Consult Active) 1 ea N/A UD PRN PRN Reason: Consult Stop: 04/22/20 07:25 Resident Activity Tracking Resident Involvement: Resident Care Provided Care Provided: Adult Hospital Medicine (Critical Care) (1) Respiratory failure Chronicity: acute Respiratory failure complication: unspecified whether with hypoxia or hypercapnia Qualified Code(s): J96.00 - Acute respiratory failure, unspecified whether with hypoxia or hypercapnia (2) DKA (diabetic ketoacidoses) Diabetes mellitus complication detail: with coma Diabetes mellitus type: type 1 Qualified Code(s): E10.11 - Type 1 diabetes mellitus with ketoacidosis with coma
[2020-03-23 10:07] LABS: iSTAT Blood Urea Nitrogen 51 mg/dl (7-18); iSTAT Chloride 106 mmol/L (101-112); iSTAT Glucose > 700 mg/dl (70-99); iSTAT Potassium 6.9 mmol/L (3.3-5.0); iSTAT Sodium 132 mmol/L (135-144)
[2020-03-23 10:08] LABS: iSTAT Carbon Dioxide 6 mmol/L (24-31); iSTAT Creatinine 2.4 mg/dl (0.6-1.3); iSTAT Hematocrit 32 % (42-52); iSTAT Hemoglobin 10.9 g/dl (14.0-18.0); iSTAT Ionized Calcium 1.13 mmol/l (1.12-1.32)
[2020-03-23] MEDS: PANTOprazole 40 MG in SYRINGE 0 ML IV SCH (11:09)
[2020-03-23] MEDS: INSULIN GLARGINE SOLOSTAR 100 UNITS/ML 3 ML PEN SC SCH (11:10)
[2020-03-23] MEDS: HEPARIN SODIUM/DEXTROSE 25,000 UNITS/500 ML BAG IV SCH (11:10)
--- NOTE | 2020-03-23 11:14 | Pharmacy Report ---
Pharmacy Glycemic Short Note 2 - Date of Service March 23, 2020 - Glycemic Short BSG Results (Last 24 hours): 03/21/20 03/22/20 03/22/20 15:43 10:29 11:08 Glucose 147 H POC Glucose 190 H POC Glucose (other) > 700 H* 03/22/20 03/22/20 03/22/20 12:03 13:34 13:46 Glucose 168 H POC Glucose 184 H 165 H POC Glucose (other) 03/22/20 03/22/20 03/22/20 14:38 15:36 17:44 Glucose POC Glucose 166 H 154 H 141 H POC Glucose (other) 03/22/20 03/22/20 03/22/20 19:19 21:27 23:38 Glucose POC Glucose 131 H 132 H 124 H POC Glucose (other) 03/23/20 03/23/20 03:38 04:19 Glucose 124 H POC Glucose 130 H POC Glucose (other) OUTPATIENT ANTIDIABETIC REGIMEN: * Lantus 18 units Q PM * Novolog 10 units BID w/ meals * A1c = 10.9% 03/22/20 ASSESSMENT: * Type 1 diabetic admitted with severe DKA on 03/21 due to non-compliance with insulin regimen, CHIVO and respiratory failure requiring intubation * He was managed with IV fluid resuscitation, IV insulin drip and e-lyte replacement * Yesterday, patient's AG acidosis had resolved and transition to SQ regimen initiated. Insulin drip d/c'd overnight. * This AM patient has been extubated. He remains NPO at this time however, but dextrose containing IVF's continue * This patient is known to the Glycemic Control Service from his recent hospitalization. During last admission he frequently refused insulin doses leading to wide swings in BSGs. Many times nursing staff needed to offer his basal insulin dose more than once to prevent severe hyperglycemic episodes in a type 1 diabetic. PLAN FOR INPATIENT GLYCEMIC CONTROL: * Basal insulin * Lantus 18 units SQ Q 24 hrs - while receiving dextrose containing IVF's. It is very important that type 1 diabetics receive some dextrose provision IV while NPO for prolonged periods of time to allow for continued basal insulin administration. * Bolus insulin * NovoLog per scale Q4hrs while NPO * Goal Range: Low 110 mg/dL - High 140 mg/dL * Correction Factor: 30 mg/dL/unit * Nutritional / Prandial insulin per carb ratio of 1 unit per 10 grams CHO consumed PLAN FOR DISCHARGE: * to be determined.
[2020-03-23] MEDS: INSULIN ASPART 100 UNITS/ML 3 ML PEN SC SCH ×4 (11:20→23:59)
[2020-03-23 11:38] LABS: Partial Thromboplastin Ratio 2.2
--- NOTE | 2020-03-23 11:38 | Hospitalist Progress Note ---
Date of Service March 23, 2020 Assessment & Plan (1) Unresponsive: (2) Metabolic encephalopathy: (3) DKA (diabetic ketoacidoses): (4) Metabolic acidosis: 69 y/o M with PMH insulin-dependent DM I, HTN, bipolar, dyslipidemia presented to ER for unresponsiveness. History obtained from ER physician as patient is currently sedated and intubated. It is reported that patient had been refusing taking his insulin. Upon arrival to ER patient was tachypneic and unresponsive. He was intubated. Patient with history COVID-19 requiring hospitalization 11/2019 and during that hospitalization developed paroxysmal A. fib and was started on metoprolol tartrate and Eliquis. Initial pH was 7.02, now 7.7 (likely from bicarb amps received overnight and correction of DKA) Anion GAP 32 now 11 BG was 961 Beta hydroxybutyrate was 74.17. Was started on insulin drip for DKA, now being transitioned to subcut Acidosis resolved Extubated this morning. Currently on nasal oxygen Will continue to monitor in ICU Plan to start diet later. Aspiration precautions Procal was 1.38 on admission trended down to 0.82 CT Ab/P show basilar opacities suggestive of atelectasis. Possible Aspiration Blood culture growing GPC in one bottle. MRSA serology negative Will follow up final result Will continue empiric antibiotics with zosyn for now Leukocytosis resolved (5) Acute hyperkalemia: Initial K: 7.5 on admission Trended down with IVF and insulin therapy. Required repletion Now 4 this morning Monitor and manage appropriately (6) CHIVO (acute kidney injury): BUN 61, Cr: 3.17 Repeat Cr: 2.69 on admission Secondary to DKA Resolving Cr is 1.19 this morning Monitor renal functions, avoid nephrotoxic agents (7) Elevated troponin: Trop was 0.066 on admission peaked at 13.7 trended down to 5.5 NSTEMI Continue heparin drip Echo did not show any wall motion abnormalities Cardiology on board (8) Paroxysmal atrial fibrillation with RVR: H/O PAF during hospitalization in 11/2019 On Eliquis, metoprolol tartrate at home (9) Hypertension: On lisinopril at home Start po antihypertensive once able to take po May resume lisinopril with resolution of CHIVO (10) Bipolar 1 disorder: On quetiapine, sertraline at home Dispo - Continue ICU care May discontinue esteban Admission and Anticipated Discharge Date Admission Date: March 21, 2020 Subjective Patient seen and examined. Was extubated a short while ago Currently alert and oriented to person only, confused and follows simple commands Still on heparin drip Review of Systems Review of Systems: Unobtainable due to cognitive status Physical Exam Constitutional: + well hydrated; no acute distress Confused Eyes: PERRL, conjunctivae normal, anicteric sclerae ENMT: external ear and nose normal, oropharynx normal Nasal cannula in situ Respiratory: normal respiratory effort, lungs clear to auscultation Cardiovascular: RRR, no murmur, no edema Gastrointestinal (Abdomen): normal bowel sounds, soft, nontender, no hepatosplenomegaly Neurologic: PERRL, EOMI, accommodation nl, no face palsy, no dysarthria Psychiatric: Orientation: alert Oriented to person only, confused Results & Data Results & Data ([facility]) Vital Signs (Past 12 Hours) Vital Signs Pulse Resp BP Pulse Ox 03/23/20 11:27 83 170/53 H 03/23/20 11:09 89 170/53 H 03/23/20 09:59 82 23 99 03/23/20 07:55 82 15 98 03/23/20 07:32 83 129/43 L 03/23/20 07:17 82 15 100 03/23/20 06:40 83 138/47 L 03/23/20 05:17 87 19 99 03/23/20 04:00 113/41 L 03/23/20 03:42 81 151/56 H 03/23/20 03:00 81 100 03/23/20 02:49 82 112/77 100 03/23/20 02:34 77 144/51 H 100 03/23/20 02:33 78 13 100 03/23/20 02:19 78 141/51 H 100 03/23/20 02:04 82 166/89 H 100 03/23/20 02:00 81 100 03/23/20 01:49 77 137/102 H 100 03/23/20 01:34 81 156/53 H 100 03/23/20 01:19 79 149/76 H 100 03/23/20 01:04 78 151/55 H 100 03/23/20 01:00 73 100 03/23/20 00:49 75 141/50 H 100 03/23/20 00:34 74 131/54 L 100 03/23/20 00:19 74 130/49 L 100 03/23/20 00:04 72 123/45 L 100 03/23/20 00:00 73 137/50 L 100 03/22/20 23:49 72 123/46 L 100 Laboratory Results Laboratory Results - last 24 hr 03/21/20 03/21/20 03/22/20 15:19 15:43 13:34 WBC RBC Hgb POC Hgb 10.9 L Hct POC Hct 32 L MCV MCH MCHC RDW Std Deviation RDW Coeff of Jace Plt Count MPV Immature Gran % (Auto) Neut % (Auto) Lymph % (Auto) [place] % (Auto) Eos % (Auto) Baso % (Auto) Neut # (Auto) Lymph # (Auto) [place] # (Auto) Eos # (Auto) Baso # (Auto) Immature Gran # (Auto) APTT PTT Ratio Sample Site POC pH POC pCO2 POC pO2 POC HCO3 POC Base Excess ABG pH ABG pH (Temp Correct) ABG pCO2 ABG pCO2 (Temp Corrct ABG pO2 POC ABG pO2 at Pt Temp ABG HCO3 POC ABG O2 Sat ABG O2 Saturation ABG Base Excess Bharat Test VBG pH Barometric Pressure Oxygen Given O2 Delivery Device POC O2 Rate Minute Ventilation POC FiO2 Tidal Volume PEEP POC Sodium 132 L Sodium POC Potassium 6.9 H* Potassium POC Chloride 106 Chloride Carbon Dioxide POC Total CO2 6 L* Anion Gap POC Anion Gap 28.0 H POC BUN 51 H BUN Creatinine POC Creatinine 2.4 H Est Cr Clr Drug Dosing Est GFR ( Amer) Est GFR (Non-Af Amer) BUN/Creatinine Ratio Glucose POC Glucose 165 H POC Glucose (other) > 700 H* Calcium POC Ioniz Calcium Juan 1.13 Phosphorus Magnesium Troponin I Procalcitonin Bld Cult Staph aureus PCR Negative Blood Culture MRSA PCR Negative 03/22/20 03/22/20 03/22/20 13:44 13:46 13:46 WBC RBC Hgb POC Hgb Hct POC Hct MCV MCH MCHC RDW Std Deviation RDW Coeff of Jace Plt Count MPV Immature Gran % (Auto) Neut % (Auto) Lymph % (Auto) [place] % (Auto) Eos % (Auto) Baso % (Auto) Neut # (Auto) Lymph # (Auto) [place] # (Auto) Eos # (Auto) Baso # (Auto) Immature Gran # (Auto) APTT PTT Ratio Sample Site POC pH POC pCO2 POC pO2 POC HCO3 POC Base Excess ABG pH 7.59 H* ABG pH (Temp Correct) ABG pCO2 27 L ABG pCO2 (Temp Corrct ABG pO2 94 POC ABG pO2 at Pt Temp ABG HCO3 25 H POC ABG O2 Sat ABG O2 Saturation 98.1 H ABG Base Excess 3.8 H Bharat Test Pos VBG pH Barometric Pressure 732.3 Oxygen Given 30% O2 Delivery Device POC O2 Rate Minute Ventilation POC FiO2 Tidal Volume PEEP POC Sodium Sodium 142 POC Potassium Potassium 3.6 POC Chloride Chloride 109 H Carbon Dioxide 25 POC Total CO2 Anion Gap 8.0 POC Anion Gap POC BUN BUN 33 H Creatinine 1.54 H POC Creatinine Est Cr Clr Drug Dosing 41.4 Est GFR ( Amer) 52.9 Est GFR (Non-Af Amer) 45.7 BUN/Creatinine Ratio 21.6 H Glucose 168 H POC Glucose POC Glucose (other) Calcium 7.7 L POC Ioniz Calcium Juan Phosphorus 1.0 L* Magnesium 2.1 Troponin I 10.200 H* Procalcitonin 1.64 H Bld Cult Staph aureus PCR Blood Culture MRSA PCR 03/22/20 03/22/20 03/22/20 14:38 15:36 15:43 WBC RBC Hgb POC Hgb Hct POC Hct MCV MCH MCHC RDW Std Deviation RDW Coeff of Jace Plt Count MPV Immature Gran % (Auto) Neut % (Auto) Lymph % (Auto) [place] % (Auto) Eos % (Auto) Baso % (Auto) Neut # (Auto) Lymph # (Auto) [place] # (Auto) Eos # (Auto) Baso # (Auto) Immature Gran # (Auto) APTT 46.1 H* PTT Ratio 1.7 Sample Site POC pH POC pCO2 POC pO2 POC HCO3 POC Base Excess ABG pH ABG pH (Temp Correct) ABG pCO2 ABG pCO2 (Temp Corrct ABG pO2 POC ABG pO2 at Pt Temp ABG HCO3 POC ABG O2 Sat ABG O2 Saturation ABG Base Excess Bharat Test VBG pH Barometric Pressure Oxygen Given O2 Delivery Device POC O2 Rate Minute Ventilation POC FiO2 Tidal Volume PEEP POC Sodium Sodium POC Potassium Potassium POC Chloride Chloride Carbon Dioxide POC Total CO2 Anion Gap POC Anion Gap POC BUN BUN Creatinine POC Creatinine Est Cr Clr Drug Dosing Est GFR ( Amer) Est GFR (Non-Af Amer) BUN/Creatinine Ratio Glucose POC Glucose 166 H 154 H POC Glucose (other) Calcium POC Ioniz Calcium Juan Phosphorus Magnesium Troponin I Procalcitonin Bld Cult Staph aureus PCR Blood Culture MRSA PCR 03/22/20 03/22/20 03/22/20 17:44 19:19 21:27 WBC RBC Hgb POC Hgb Hct POC Hct MCV MCH MCHC RDW Std Deviation RDW Coeff of Jace Plt Count MPV Immature Gran % (Auto) Neut % (Auto) Lymph % (Auto) [place] % (Auto) Eos % (Auto) Baso % (Auto) Neut # (Auto) Lymph # (Auto) [place] # (Auto) Eos # (Auto) Baso # (Auto) Immature Gran # (Auto) APTT PTT Ratio Sample Site POC pH POC pCO2 POC pO2 POC HCO3 POC Base Excess ABG pH ABG pH (Temp Correct) ABG pCO2 ABG pCO2 (Temp Corrct ABG pO2 POC ABG pO2 at Pt Temp ABG HCO3 POC ABG O2 Sat ABG O2 Saturation ABG Base Excess Bharat Test VBG pH Barometric Pressure Oxygen Given O2 Delivery Device POC O2 Rate Minute Ventilation POC FiO2 Tidal Volume PEEP POC Sodium Sodium POC Potassium Potassium POC Chloride Chloride Carbon Dioxide POC Total CO2 Anion Gap POC Anion Gap POC BUN BUN Creatinine POC Creatinine Est Cr Clr Drug Dosing Est GFR ( Amer) Est GFR (Non-Af Amer) BUN/Creatinine Ratio Glucose POC Glucose 141 H 131 H 132 H POC Glucose (other) Calcium POC Ioniz Calcium Juan Phosphorus Magnesium Troponin I Procalcitonin Bld Cult Staph aureus PCR Blood Culture MRSA PCR 03/22/20 03/23/20 03/23/20 23:38 00:14 03:38 WBC RBC Hgb POC Hgb Hct POC Hct MCV MCH MCHC RDW Std Deviation RDW Coeff of Jace Plt Count MPV Immature Gran % (Auto) Neut % (Auto) Lymph % (Auto) [place] % (Auto) Eos % (Auto) Baso % (Auto) Neut # (Auto) Lymph # (Auto) [place] # (Auto) Eos # (Auto) Baso # (Auto) Immature Gran # (Auto) APTT PTT Ratio Sample Site POC pH POC pCO2 POC pO2 POC HCO3 POC Base Excess ABG pH ABG pH (Temp Correct) ABG pCO2 ABG pCO2 (Temp Corrct ABG pO2 POC ABG pO2 at Pt Temp ABG HCO3 POC ABG O2 Sat ABG O2 Saturation ABG Base Excess Bharat Test VBG pH Barometric Pressure Oxygen Given O2 Delivery Device POC O2 Rate Minute Ventilation POC FiO2 Tidal Volume PEEP POC Sodium Sodium POC Potassium Potassium POC Chloride Chloride Carbon Dioxide POC Total CO2 Anion Gap POC Anion Gap POC BUN BUN Creatinine POC Creatinine Est Cr Clr Drug Dosing Est GFR ( Amer) Est GFR (Non-Af Amer) BUN/Creatinine Ratio Glucose POC Glucose 124 H 130 H POC Glucose (other) Calcium POC Ioniz Calcium Juan Phosphorus Magnesium Troponin I 5.540 H* Procalcitonin Bld Cult Staph aureus PCR Blood Culture MRSA PCR 03/23/20 03/23/20 03/23/20 04:19 04:19 04:19 WBC 10.96 H RBC 3.23 L Hgb 9.6 L POC Hgb Hct 27.4 L POC Hct MCV 84.8 MCH 29.7 MCHC 35.0 RDW Std Deviation 46.8 H RDW Coeff of Jace 15.0 H Plt Count 184 MPV 9.6 Immature Gran % (Auto) 0.2 Neut % (Auto) 88.8 Lymph % (Auto) 7.3 [place] % (Auto) 3.6 Eos % (Auto) 0.1 Baso % (Auto) 0.0 Neut # (Auto) 9.74 H Lymph # (Auto) 0.80 L [place] # (Auto) 0.39 Eos # (Auto) 0.01 Baso # (Auto) 0.00 Immature Gran # (Auto) 0.02 APTT PTT Ratio Sample Site POC pH POC pCO2 POC pO2 POC HCO3 POC Base Excess ABG pH ABG pH (Temp Correct) ABG pCO2 ABG pCO2 (Temp Corrct ABG pO2 POC ABG pO2 at Pt Temp ABG HCO3 POC ABG O2 Sat ABG O2 Saturation ABG Base Excess Bharat Test VBG pH 7.46 H Barometric Pressure Oxygen Given O2 Delivery Device POC O2 Rate Minute Ventilation POC FiO2 Tidal Volume PEEP POC Sodium Sodium 143 POC Potassium Potassium 3.8 POC Chloride Chloride 112 H Carbon Dioxide 25 POC Total CO2 Anion Gap 6.0 POC Anion Gap POC BUN BUN 19 H Creatinine 1.19 D POC Creatinine Est Cr Clr Drug Dosing 53.6 Est GFR ( Amer) 72.3 Est GFR (Non-Af Amer) 62.4 BUN/Creatinine Ratio 15.8 Glucose 124 H POC Glucose POC Glucose (other) Calcium 7.4 L POC Ioniz Calcium Juan Phosphorus 2.3 L D Magnesium 1.8 Troponin I Procalcitonin Bld Cult Staph aureus PCR Blood Culture MRSA PCR 03/23/20 03/23/20 03/23/20 04:19 04:19 05:16 WBC RBC Hgb POC Hgb 8.8 L Hct POC Hct 26 L MCV MCH MCHC RDW Std Deviation RDW Coeff of Jace Plt Count MPV Immature Gran % (Auto) Neut % (Auto) Lymph % (Auto) [place] % (Auto) Eos % (Auto) Baso % (Auto) Neut # (Auto) Lymph # (Auto) [place] # (Auto) Eos # (Auto) Baso # (Auto) Immature Gran # (Auto) APTT 70.5 H* PTT Ratio 2.5 Sample Site Art Line POC pH 7.47 H POC pCO2 35 POC pO2 89 POC HCO3 25 H POC Base Excess 2.0 H ABG pH ABG pH (Temp Correct) 7.458 H ABG pCO2 ABG pCO2 (Temp Corrct 36 ABG pO2 POC ABG pO2 at Pt Temp 94 ABG HCO3 POC ABG O2 Sat 97.0 H ABG O2 Saturation ABG Base Excess Bharat Test NA VBG pH Barometric Pressure Oxygen Given O2 Delivery Device Ventilator POC O2 Rate 12 Minute Ventilation 4.8 POC FiO2 30 Tidal Volume 400 PEEP 5 POC Sodium 142 Sodium POC Potassium 4.0 Potassium POC Chloride Chloride Carbon Dioxide POC Total CO2 26 Anion Gap POC Anion Gap POC BUN BUN Creatinine POC Creatinine Est Cr Clr Drug Dosing Est GFR ( Amer) Est GFR (Non-Af Amer) BUN/Creatinine Ratio Glucose POC Glucose POC Glucose (other) Calcium POC Ioniz Calcium Juan Phosphorus Magnesium Troponin I Procalcitonin 0.82 H Bld Cult Staph aureus PCR Blood Culture MRSA PCR 03/23/20 03/23/20 11:05 11:19 WBC RBC Hgb POC Hgb Hct POC Hct MCV MCH MCHC RDW Std Deviation RDW Coeff of Jace Plt Count MPV Immature Gran % (Auto) Neut % (Auto) Lymph % (Auto) [place] % (Auto) Eos % (Auto) Baso % (Auto) Neut # (Auto) Lymph # (Auto) [place] # (Auto) Eos # (Auto) Baso # (Auto) Immature Gran # (Auto) APTT 62.4 H* PTT Ratio 2.2 Sample Site POC pH POC pCO2 POC pO2 POC HCO3 POC Base Excess ABG pH ABG pH (Temp Correct) ABG pCO2 ABG pCO2 (Temp Corrct ABG pO2 POC ABG pO2 at Pt Temp ABG HCO3 POC ABG O2 Sat ABG O2 Saturation ABG Base Excess Bharat Test VBG pH Barometric Pressure Oxygen Given O2 Delivery Device POC O2 Rate Minute Ventilation POC FiO2 Tidal Volume PEEP POC Sodium Sodium POC Potassium Potassium POC Chloride Chloride Carbon Dioxide POC Total CO2 Anion Gap POC Anion Gap POC BUN BUN Creatinine POC Creatinine Est Cr Clr Drug Dosing Est GFR ( Amer) Est GFR (Non-Af Amer) BUN/Creatinine Ratio Glucose POC Glucose 254 H POC Glucose (other) Calcium POC Ioniz Calcium Juan Phosphorus Magnesium Troponin I Procalcitonin Bld Cult Staph aureus PCR Blood Culture MRSA PCR (1) DKA (diabetic ketoacidoses) Diabetes mellitus complication detail: with coma Diabetes mellitus type: type 1 Qualified Code(s): E10.11 - Type 1 diabetes mellitus with ketoacidosis with coma
[2020-03-23 12:16] LABS: Partial Thromboplastin Time 62.4 Seconds (21.0-31.0)
--- NOTE | 2020-03-23 13:47 | Billing Data ---
Date of Service March 23, 2020 Coding Level of Care Code Critical Care 1st 30-74 mins Time Spent (min) 37
[2020-03-23] MEDS ORDERED: METOPROLOL TARTRATE 1 MG/ML VIAL IV PRN (14:09)
--- NOTE | 2020-03-23 14:11 | Cardiology Progress Note ---
Date of Service March 23, 2020 Assessment & Plan (1) Elevated troponin: EKG this morning reveals sinus rhythm at [address] subtle lateral [address] depression. An echocardiogram had been performed yesterday in setting of rising troponin, with hyperdynamic left ventricular systolic dysfunction, LVEF > 70% with no regional wall motion abnormalities. Troponin I has peaked at 13.7 and has trended down to 10.2 and 5.5 Ng/ml on subsequent measurements. Although I do not believe that with myocardial ischemia was the driving force for his presentation, he certainly has had demand ischemia in the setting of acute illness including DKA, markedly metabolic acidosis, and required transient Ventilator support for airway control and management of his acid-base derangements, and had acute kidney injury, with presenting creatinine of 3.17, improved to 1.19 on most recent measurement this morning. Continue current supportive care. Agree with 48 hours of IV heparin for treatment of NSTEMI, suspected demand ischemia in the setting of fixed underlying coronary disease. Patient previously on anticoagulation been diagnosed with paroxysmal atrial fibrillation during admission in December with COVID-19 pneumonia. Repeat COVID-19 PCR -03/22/2020. Now that he is able to tolerate oral medications, would continue metoprolol tartrate 25 mg twice daily, along with aspirin, and atorvastatin. (2) CHIVO (acute kidney injury): (3) Respiratory failure: (4) DKA (diabetic ketoacidoses): (5) Paroxysmal atrial fibrillation with RVR: Admission and Anticipated Discharge Date Admission Date: March 21, 2020 Subjective Patient seen in follow up , shortly after extubation. Denies cardiac complaint. Telemetry with findings of SR and sinus tachycardia. Review of Systems Review of Systems: Complete review systems unobtainable as the patient is still acutely ill with altered mental status. Physical Exam Physical Exam: Temp Pulse Resp BP Pulse Ox 37.0 C 83 23 170/53 H 99 03/22/20 04:00 03/23/20 11:27 03/23/20 09:59 03/23/20 11:27 03/23/20 09:59 Constitutional: Chronically ill in appearance Respiratory: Coarse breath sounds bilaterally at the bases Cardiovascular: RRR, no murmur, no edema Gastrointestinal (Abdomen): normal bowel sounds, soft, nontender, no hepatosplenomegaly Neurologic: Continues, however moves all 4 extremities spontaneously Results & Data ([facility]) Vital Signs (Past 12 Hours) Vital Signs Pulse Resp BP Pulse Ox 03/23/20 11:27 83 170/53 H 03/23/20 11:09 89 170/53 H 03/23/20 09:59 82 23 99 03/23/20 07:55 82 15 98 03/23/20 07:32 83 129/43 L 03/23/20 07:17 82 15 100 03/23/20 06:40 83 138/47 L 03/23/20 05:17 87 19 99 03/23/20 04:00 113/41 L 03/23/20 03:42 81 151/56 H 03/23/20 03:00 81 100 03/23/20 02:49 82 112/77 100 03/23/20 02:34 77 144/51 H 100 03/23/20 02:33 78 13 100 03/23/20 02:19 78 141/51 H 100 Laboratory Results Cardiac Enzymes 03/22/20 03/23/20 Range/Units 13:46 00:14 Troponin I 10.200 H* 5.540 H* (0-0.045) ng/ml Coagulation 03/22/20 03/23/20 03/23/20 Range/Units 15:43 04:19 11:05 APTT 46.1 H* 70.5 H* 62.4 H* (21.0-31.0) Seconds CBC 03/23/20 Range/Units 04:19 WBC 10.96 H (4.8-10.8) K/uL RBC 3.23 L (4.7-6.1) M/uL Hgb 9.6 L (14.0-18.0) g/dL Hct 27.4 L (42-52) % Plt Count 184 (130-400) K/uL Neut # (Auto) 9.74 H (1.4-6.5) K/uL Lymph # (Auto) 0.80 L (1.2-3.4) K/uL Pratt # (Auto) 0.39 (0.11-0.59) K/uL Eos # (Auto) 0.01 (0-0.5) K/uL Baso # (Auto) 0.00 (0-0.2) K/uL Comprehensive Metabolic Panel 03/22/20 03/23/20 Range/Units 13:46 04:19 Sodium 142 143 (136-145) mmol/L Potassium 3.6 3.8 (3.5-5.1) mmol/L Chloride 109 H 112 H (98-107) mmol/L Carbon Dioxide 25 25 (21-32) mmol/L BUN 33 H 19 H (7-18) mg/dl Creatinine 1.54 H 1.19 D (0.6-1.4) mg/dl Glucose 168 H 124 H (70-99) mg/dl Calcium 7.7 L 7.4 L (8.5-10.1) mg/dl Intake and Output 03/22/20 03/23/20 03/23/20 22:59 06:59 14:59 Intake Total 1739.303 / 4844.637 1347.237 / 4844.637 1813.25 / 1813.25 Output Total 800 / 1200 400 / 1200 Balance 939.303 / 3644.637 947.237 / 3644.637 1813.25 / 1813.25 Intake: IV 1739.303 / 4844.637 1347.237 / 4844.637 1813.25 / 1813.25 D5w and 1/2Nss 1,000 ml @ 75 291.25 / 291.25 mls/hr IV .[id number] [facility] Rx#: [id number] HEPARIN SODIUM/DEXTROSE 25,000 83.2 / 284.0 200.8 / 284.0 111.25 / 111.25 units In 500 ml @ 750 UNITS/HR 15 mls/hr IV .Q24H [facility] Rx#: [id number] NovoLIN R 250 UNITS In Nss 247. 13.603 / 43.570 6.437 / 43.570 5 ml @ 1 UNITS/HR 1 mls/hr IV . Q24H [facility] Rx#:[id number] Zosyn 4.5 gm In D5 100 ml @ 30 120 / 240 120 / 240 157 / 157 mls/hr IV Q8H [facility] Rx#:[id number] KCl 40 Meq In D5w and 1/2Nss 1, 1012.5 / 3010.0 1020 / 3010.0 718.75 / 718.75 000 ml @ 150 mls/hr IV .Q6H48M [facility] Rx#:[id number] Potassium Phosphate 30 Mmol In 510.0 / 510.0 Nss 500 ml @ 102 mls/hr IV ONE ONE Rx#:[id number] Vancomycin HCl 1,750 mg In Nss 535 / 535 500 ml @ 200 mls/hr IV NOW ONE Rx#:[id number] Oral 0 / 0 0 / 0 Output: Urine Amount (Catheter) 800 / 1200 400 / 1200 Gibbs/Indwelling 800 / 1200 400 / 1200 Other: Weight 70.3 kg 70.3 kg Patient Weight 03/24/20 06:59 Weight 70.3 kg (1) Respiratory failure Chronicity: acute Respiratory failure complication: unspecified whether with hypoxia or hypercapnia Qualified Code(s): J96.00 - Acute respiratory failure, unspecified whether with hypoxia or hypercapnia (2) DKA (diabetic ketoacidoses) Diabetes mellitus complication detail: with coma Diabetes mellitus type: type 1 Qualified Code(s): E10.11 - Type 1 diabetes mellitus with ketoacidosis with coma
[2020-03-23] MEDS: ATORVASTATIN 20 MG TAB PO SCH (16:02)
[2020-03-23] MEDS: ASPIRIN 81 MG ECTAB PO SCH (16:03)
[2020-03-23] MEDS: METOPROLOL TARTRATE 25 MG TAB PO SCH (20:10)
[2020-03-24] MEDS: PIPERACILLIN/TAZOBACTAM 4.5 GM in DEXTROSE 5% 100 ML IV SCH (04:24)
[2020-03-24] MEDS: INSULIN ASPART 100 UNITS/ML 3 ML PEN SC SCH ×6 (04:25→21:00)
[2020-03-24 05:38] LABS: Basophils # (auto) 0.01 K/uL (0-0.2); Basophils % (auto) 0.2 %; Eosinophils # (auto) 0.08 K/uL (0-0.5); Eosinophils % (auto) 1.4 %; Hematocrit (blood only) 28.8 % (42-52); Hemoglobin 9.9 g/dL (14.0-18.0); Immature Granulocytes # (auto) 0.01 K/uL (0.00-0.02); Immature Granulocytes % (auto) 0.2 %; Lymphocytes # (auto) 0.65 K/uL (1.2-3.4); Lymphocytes % (auto) 11.2 %; Mean Corpuscular Hemoglobin 29.7 pg (25-34); Mean Corpuscular Hgb Conc 34.4 g/dL (32-36); Mean Corpuscular Volume 86.5 fL (80-100); Mean Platelet Volume 10.2 fL (7.4-10.4); Monocytes # (auto) 0.36 K/uL (0.11-0.59); Monocytes % (auto) 6.2 %; Neutrophils # (auto) 4.67 K/uL (1.4-6.5); Neutrophils % (auto) 80.8 %; Platelet Count 160 K/uL (130-400); RDW Standard Deviation 47.9 fL (36.4-46.3); Red Blood Count 3.33 M/uL (4.7-6.1); White Blood Count 5.78 K/uL (4.8-10.8)
[2020-03-24 06:02] LABS: Partial Thromboplastin Ratio 2.1
[2020-03-24 06:16] LABS: Partial Thromboplastin Time 57.6 Seconds (21.0-31.0)
[2020-03-24 06:17] LABS: BUN Creatinine Ratio 9.8 (10-20); Calcium 7.9 mg/dl (8.5-10.1); Creatinine Clr Calc Pharmacy 75.1 ml/min; Est GFR (African American) 103.8; Est GFR (Non-African American) 89.5; Magnesium 1.9 mg/dl (1.8-2.4); Phosphorus 1.8 mg/dl (2.5-4.9); Potassium 3.6 mmol/L (3.5-5.1)
[2020-03-24] MEDS ORDERED: POTASSIUM PHOS 3 MMOL/1 ML INFUSION IV STA (06:54)
[2020-03-24] MEDS ORDERED: POTASSIUM PHOSPHATE 21 MMOL in SODIUM CHLORIDE 0.9% 500 ML IV ONE (07:30)
--- NOTE | 2020-03-24 08:04 | Hospitalist Progress Note ---
Date of Service March 24, 2020 Assessment & Plan (1) Unresponsive: (2) Metabolic encephalopathy: (3) DKA (diabetic ketoacidoses): (4) Metabolic acidosis: 69 y/o M with PMH insulin-dependent DM I, HTN, bipolar, dyslipidemia presented to ER for unresponsiveness. History obtained from ER physician as patient is currently sedated and intubated. It is reported that patient had been refusing taking his insulin. Upon arrival to ER patient was tachypneic and unresponsive. He was intubated. Patient with history COVID-19 requiring hospitalization 11/2019 and during that hospitalization developed paroxysmal A. fib and was started on metoprolol tartrate and Eliquis. Initial pH was 7.02, now 7.7 (likely from bicarb amps initially after admission and correction of DKA) Anion GAP 32 now 11 BG was 961 Beta hydroxybutyrate was 74.17. Was started on insulin drip for DKA, now transitioned to subcut Acidosis resolved Extubated on 03/23/20. Currently on room air Downgrade from ICU. Aspiration precautions, some difficulty with swallowing meds noted, speech eval ordered Procal was 1.38 on admission trended down to 0.82 CT Ab/P show basilar opacities suggestive of atelectasis. Possible Aspiration Blood culture growing GPC in one bottle (Micrococcus), likely contaminant. MRSA serology negative Will follow up final result Will continue empiric antibiotics, zosyn stopped 03/24 by ICU team and doxycycline was started for next 3 days Leukocytosis resolved (5) Acute hyperkalemia: Initial K: 7.5 on admission Trended down with IVF and insulin therapy. Required repletion Normalized Monitor and manage appropriately (6) CHIVO (acute kidney injury): BUN 61, Cr: 3.17 Repeat Cr: 2.69 on admission Secondary to DKA Resolving Cr is 0.85 this morning Monitor renal functions, avoid nephrotoxic agents Hypomag, Hypophos -replace and monitor (7) Elevated troponin: Trop was 0.066 on admission peaked at 13.7 trended down to 5.5 NSTEMI Continue heparin drip Echo did not show any wall motion abnormalities Cardiology on board (8) Paroxysmal atrial fibrillation with RVR: H/O PAF during hospitalization in 11/2019 On Eliquis, metoprolol tartrate at home (9) Hypertension: On lisinopril at home Start po antihypertensive once able to take po May resume lisinopril with resolution of CHIVO (10) Bipolar 1 disorder: On quetiapine, sertraline at home Psychiatry also consulted, given bipolar d/o and medication noncompliance Dispo - downgrade from ICU Admission and Anticipated Discharge Date Admission Date: March 21, 2020 Subjective Patient extubated yesterday. Currently laying in bed breathing on room air comfortably. He is in NAD. He does not speak much and does not answer all questions appropriately. He can say his name and date of . Then tells me that he is in his brother's house, not hospital. He tells me that he lives with his mother and that he takes his insulin appropriately. He denies any complaints, says he "feels fine". Specifically denies any fever, chills, chest pain, palpitations, nausea, abdominal pain. Psychiatry consulted by ICU team. Reportedly pt has been having difficulty swallowing, and is taking minimal pills swallowed with applesauce. Swallow study pending. Patient denies being hungry. Per nursing staff pt only had some apple sauce. Review of Systems Review of Systems: All systems reviewed & are unremarkable except as noted in HPI & below Constitutional: no fever and no chills Respiratory: no cough and no dyspnea Cardiovascular: no chest pain and no palpitations Gastrointestinal: no abdominal pain, no nausea and no vomiting Physical Exam Physical Exam: Constitutional: slender male in no acute distress, breathing on RA Eyes: PERRL, conjunctivae normal, anicteric sclerae ENMT: external ear and nose normal, oropharynx normal Respiratory: normal respiratory effort, + rhonchi, breathing comfortably on room air Cardiovascular: RRR, no murmur, no edema Gastrointestinal (Abdomen): normal bowel sounds, soft, nontender to palpation Neurologic: PERRL, EOMI, no face palsy, no dysarthria, moves extremities spontaneously Psychiatric: Orientation: alert Oriented to person only, answers some questions appropriately, confused Results & Data Results & Data ([facility]) Vital Signs (Past 12 Hours) Vital Signs Temp Pulse Resp BP Pulse Ox 03/24/20 06:26 86 23 157/55 H 92 03/24/20 05:00 75 21 94 03/24/20 04:02 37.3 C 76 20 132/61 94 03/24/20 03:02 78 17 138/45 L 95 03/24/20 02:02 78 19 129/57 L 94 03/24/20 01:02 80 22 118/60 94 03/24/20 00:02 37.1 C 77 15 123/54 L 93 03/23/20 23:00 83 22 116/59 L 96 03/23/20 22:00 80 26 H 130/45 L 95 03/23/20 21:02 86 15 131/75 99 03/23/20 20:32 89 23 130/67 99 03/23/20 20:05 37.5 C 89 12 121/67 99 Laboratory Results 03/24/20 03/24/20 03/24/20 Range/Units 06:57 04:48 04:48 WBC 5.78 (4.8-10.8) K/uL RBC 3.33 L (4.7-6.1) M/uL Hgb 9.9 L (14.0-18.0) g/dL POC Hgb (14.0-18.0) g/dl Hct 28.8 L (42-52) % POC Hct (42-52) % MCV 86.5 (80-100) fL MCH 29.7 (25-34) pg MCHC 34.4 (32-36) g/dL RDW Std Deviation 47.9 H (36.4-46.3) fL RDW Coeff of Jace 15.0 H (11.5-14.5) % Plt Count 160 (130-400) K/uL MPV 10.2 (7.4-10.4) fL Immature Gran % (Auto) 0.2 % Neut % (Auto) 80.8 % Lymph % (Auto) 11.2 % Montgomery % (Auto) 6.2 % Eos % (Auto) 1.4 % Baso % (Auto) 0.2 % Neut # (Auto) 4.67 (1.4-6.5) K/uL Lymph # (Auto) 0.65 L (1.2-3.4) K/uL Montgomery # (Auto) 0.36 (0.11-0.59) K/uL Eos # (Auto) 0.08 (0-0.5) K/uL Baso # (Auto) 0.01 (0-0.2) K/uL Immature Gran # (Auto) 0.01 (0.00-0.02) K/uL APTT 57.6 H* (21.0-31.0) Seconds PTT Ratio 2.1 POC Sodium (135-144) mmol/L Sodium (136-145) mmol/L POC Potassium (3.3-5.0) mmol/L Potassium (3.5-5.1) mmol/L POC Chloride (101-112) mmol/L Chloride (98-107) mmol/L Carbon Dioxide (21-32) mmol/L POC Total CO2 (24-31) mmol/L Anion Gap (3-11) POC Anion Gap (16-25) mmol/L POC BUN (7-18) mg/dl BUN (7-18) mg/dl Creatinine (0.6-1.4) mg/dl POC Creatinine (0.6-1.3) mg/dl Est Cr Clr Drug Dosing ml/min Est GFR ( Amer) Est GFR (Non-Af Amer) BUN/Creatinine Ratio (10-20) Glucose (70-99) mg/dl POC Glucose 224 H (70-99) mg/dl POC Glucose (other) (70-99) mg/dl Calcium (8.5-10.1) mg/dl POC Ioniz Calcium Juan (1.12-1.32) mmol/l Phosphorus (2.5-4.9) mg/dl Magnesium (1.8-2.4) mg/dl 03/24/20 03/24/20 03/23/20 Range/Units 04:48 04:12 23:47 WBC (4.8-10.8) K/uL RBC (4.7-6.1) M/uL Hgb (14.0-18.0) g/dL POC Hgb (14.0-18.0) g/dl Hct (42-52) % POC Hct (42-52) % MCV (80-100) fL MCH (25-34) pg MCHC (32-36) g/dL RDW Std Deviation (36.4-46.3) fL RDW Coeff of Jace (11.5-14.5) % Plt Count (130-400) K/uL MPV (7.4-10.4) fL Immature Gran % (Auto) % Neut % (Auto) % Lymph % (Auto) % Montgomery % (Auto) % Eos % (Auto) % Baso % (Auto) % Neut # (Auto) (1.4-6.5) K/uL Lymph # (Auto) (1.2-3.4) K/uL Montgomery # (Auto) (0.11-0.59) K/uL Eos # (Auto) (0-0.5) K/uL Baso # (Auto) (0-0.2) K/uL Immature Gran # (Auto) (0.00-0.02) K/uL APTT (21.0-31.0) Seconds PTT Ratio POC Sodium (135-144) mmol/L Sodium 140 (136-145) mmol/L POC Potassium (3.3-5.0) mmol/L Potassium 3.6 (3.5-5.1) mmol/L POC Chloride (101-112) mmol/L Chloride 109 H (98-107) mmol/L Carbon Dioxide 26 (21-32) mmol/L POC Total CO2 (24-31) mmol/L Anion Gap 5.0 (3-11) POC Anion Gap (16-25) mmol/L POC BUN (7-18) mg/dl BUN 8 D (7-18) mg/dl Creatinine 0.85 D (0.6-1.4) mg/dl POC Creatinine (0.6-1.3) mg/dl Est Cr Clr Drug Dosing 75.1 ml/min Est GFR ( Amer) 103.8 Est GFR (Non-Af Amer) 89.5 BUN/Creatinine Ratio 9.8 L (10-20) Glucose 158 H (70-99) mg/dl POC Glucose 149 H 187 H (70-99) mg/dl POC Glucose (other) (70-99) mg/dl Calcium 7.9 L (8.5-10.1) mg/dl POC Ioniz Calcium Juan (1.12-1.32) mmol/l Phosphorus 1.8 L (2.5-4.9) mg/dl Magnesium 1.9 (1.8-2.4) mg/dl 03/23/20 03/23/20 03/23/20 Range/Units 20:01 16:07 11:19 WBC (4.8-10.8) K/uL RBC (4.7-6.1) M/uL Hgb (14.0-18.0) g/dL POC Hgb (14.0-18.0) g/dl Hct (42-52) % POC Hct (42-52) % MCV (80-100) fL MCH (25-34) pg MCHC (32-36) g/dL RDW Std Deviation (36.4-46.3) fL RDW Coeff of Jace (11.5-14.5) % Plt Count (130-400) K/uL MPV (7.4-10.4) fL Immature Gran % (Auto) % Neut % (Auto) % Lymph % (Auto) % Montgomery % (Auto) % Eos % (Auto) % Baso % (Auto) % Neut # (Auto) (1.4-6.5) K/uL Lymph # (Auto) (1.2-3.4) K/uL Montgomery # (Auto) (0.11-0.59) K/uL Eos # (Auto) (0-0.5) K/uL Baso # (Auto) (0-0.2) K/uL Immature Gran # (Auto) (0.00-0.02) K/uL APTT (21.0-31.0) Seconds PTT Ratio POC Sodium (135-144) mmol/L Sodium (136-145) mmol/L POC Potassium (3.3-5.0) mmol/L Potassium (3.5-5.1) mmol/L POC Chloride (101-112) mmol/L Chloride (98-107) mmol/L Carbon Dioxide (21-32) mmol/L POC Total CO2 (24-31) mmol/L Anion Gap (3-11) POC Anion Gap (16-25) mmol/L POC BUN (7-18) mg/dl BUN (7-18) mg/dl Creatinine (0.6-1.4) mg/dl POC Creatinine (0.6-1.3) mg/dl Est Cr Clr Drug Dosing ml/min Est GFR ( Amer) Est GFR (Non-Af Amer) BUN/Creatinine Ratio (10-20) Glucose (70-99) mg/dl POC Glucose 186 H 265 H 254 H (70-99) mg/dl POC Glucose (other) (70-99) mg/dl Calcium (8.5-10.1) mg/dl POC Ioniz Calcium Juan (1.12-1.32) mmol/l Phosphorus (2.5-4.9) mg/dl Magnesium (1.8-2.4) mg/dl 03/23/20 03/21/20 Range/Units 11:05 15:43 WBC (4.8-10.8) K/uL RBC (4.7-6.1) M/uL Hgb (14.0-18.0) g/dL POC Hgb 10.9 L (14.0-18.0) g/dl Hct (42-52) % POC Hct 32 L (42-52) % MCV (80-100) fL MCH (25-34) pg MCHC (32-36) g/dL RDW Std Deviation (36.4-46.3) fL RDW Coeff of Jace (11.5-14.5) % Plt Count (130-400) K/uL MPV (7.4-10.4) fL Immature Gran % (Auto) % Neut % (Auto) % Lymph % (Auto) % Montgomery % (Auto) % Eos % (Auto) % Baso % (Auto) % Neut # (Auto) (1.4-6.5) K/uL Lymph # (Auto) (1.2-3.4) K/uL Montgomery # (Auto) (0.11-0.59) K/uL Eos # (Auto) (0-0.5) K/uL Baso # (Auto) (0-0.2) K/uL Immature Gran # (Auto) (0.00-0.02) K/uL APTT 62.4 H* (21.0-31.0) Seconds PTT Ratio 2.2 POC Sodium 132 L (135-144) mmol/L Sodium (136-145) mmol/L POC Potassium 6.9 H* (3.3-5.0) mmol/L Potassium (3.5-5.1) mmol/L POC Chloride 106 (101-112) mmol/L Chloride (98-107) mmol/L Carbon Dioxide (21-32) mmol/L POC Total CO2 6 L* (24-31) mmol/L Anion Gap (3-11) POC Anion Gap 28.0 H (16-25) mmol/L POC BUN 51 H (7-18) mg/dl BUN (7-18) mg/dl Creatinine (0.6-1.4) mg/dl POC Creatinine 2.4 H (0.6-1.3) mg/dl Est Cr Clr Drug Dosing ml/min Est GFR ( Amer) Est GFR (Non-Af Amer) BUN/Creatinine Ratio (10-20) Glucose (70-99) mg/dl POC Glucose (70-99) mg/dl POC Glucose (other) > 700 H* (70-99) mg/dl Calcium (8.5-10.1) mg/dl POC Ioniz Calcium Juan 1.13 (1.12-1.32) mmol/l Phosphorus (2.5-4.9) mg/dl Magnesium (1.8-2.4) mg/dl Medications Administered Current Inpatient Medications Aspirin (Aspirin 81 Mg Ectab) 81 mg PO [facility] Stop: 04/22/20 14:29 Last Admin: 03/24/20 08:05 Dose: 81 mg Documented by: Atorvastatin Calcium (Atorvastatin 20 Mg Tab) 20 mg PO [facility] Stop: 04/22/20 14:29 Last Admin: 03/24/20 08:05 Dose: 20 mg Documented by: Dextrose (Dextrose 50% 50 Ml Syringe) 25 - 50 ml IV UD PRN; Protocol PRN Reason: Hypoglycemia Protocol Stop: 04/20/20 16:59 Doxycycline Hyclate (Doxycycline Hyclate 100 Mg Cap) 100 mg PO BID [facility] Stop: 03/27/20 08:59 Glucagon (Glucagon For Inj 1 Mg Vial) 1 mg IM UD PRN; Protocol PRN Reason: Hypoglycemia Protocol Stop: 04/20/20 16:59 Glucose (Glucose 40% Gel 15 Gm Tube) 15 - 30 gm PO UD PRN; Protocol PRN Reason: Hypoglycemia Protocol Stop: 04/20/20 16:59 Glucose (Glucose 10 Tabs/Tube) 4 - 8 tabs PO UD PRN; Protocol PRN Reason: Hypoglycemia Protocol Stop: 04/20/20 16:59 Pantoprazole Sodium 40 mg/ (Syringe) 10 mls @ 5 mls/min IV DAILY@1100 [facility] Stop: 04/21/20 10:59 Last Admin: 03/23/20 11:09 Dose: 5 mls/min Documented by: Heparin Sodium/Dextrose (Heparin Sodium/Dextrose) 25,000 units in 500 mls @ 15 mls/hr IV .Q24H [facility]; Protocol Stop: 04/21/20 10:59 Last Titration: 03/24/20 06:56 Dose: 750 units/hr, 15 mls/hr Documented by: Dextrose/Sodium Chloride (D5w And 1/2nss) 1,000 mls @ 75 mls/hr IV .[id number] [facility] Stop: 04/21/20 05:29 Last Admin: 03/23/20 20:08 Dose: 75 mls/hr Documented by: Potassium Phosphate 21 mmol/ (Sodium Chloride) 507 mls @ 140 mls/hr IV ONE ONE Stop: 03/24/20 11:07 Last Admin: 03/24/20 08:02 Dose: 140 mls/hr Documented by: Insulin Aspart (Insulin Aspart 100 Units/Ml 3 Ml Pen) 0 units SC Q4 [facility] Stop: 04/22/20 11:59 Last Admin: 03/24/20 08:06 Dose: 3 units Documented by: Insulin Glargine (Insulin Glargine Solostar 100 Units/Ml 3 Ml Pen) 18 units SC Q24H [facility] Stop: 04/22/20 11:59 Last Admin: 03/24/20 08:06 Dose: 18 units Documented by: Metoprolol Tartrate (Metoprolol Tartrate 25 Mg Tab) 25 mg PO BID [facility] Stop: 04/22/20 20:59 Last Admin: 03/24/20 08:05 Dose: 25 mg Documented by: Metoprolol Tartrate (Metoprolol Tartrate 1 Mg/Ml Vial) 2.5 mg IV Q4H PRN PRN Reason: SBP greater than 150 Stop: 04/22/20 14:08 Miscellaneous (Carbohydrates For Hypoglycemia ) 15 - 30 gm PO UD PRN PRN Reason: Hypoglycemia Treatment Stop: 04/20/20 16:59 Miscellaneous Information (Pharmacy Glycemic Mgmt Consult) 1 ea N/A UD PRN PRN Reason: Consult Stop: 04/21/20 09:14 (1) DKA (diabetic ketoacidoses) Diabetes mellitus complication detail: with coma Diabetes mellitus type: type 1 Qualified Code(s): E10.11 - Type 1 diabetes mellitus with ketoacidosis with coma
[2020-03-24] MEDS: ATORVASTATIN 20 MG TAB PO SCH (08:05)
[2020-03-24] MEDS: METOPROLOL TARTRATE 25 MG TAB PO SCH ×2 (08:05→21:43)
[2020-03-24] MEDS: ASPIRIN 81 MG ECTAB PO SCH (08:05)
[2020-03-24] MEDS: INSULIN GLARGINE SOLOSTAR 100 UNITS/ML 3 ML PEN SC SCH (08:06)
[2020-03-24] MEDS: DOXYCYCLINE HYCLATE 100 MG CAP PO SCH ×2 (08:47→21:43)
--- NOTE | 2020-03-24 08:49 | Critical Care Progress Note ---
Date of Service March 24, 2020 Assessment & Plan (1) Respiratory failure: Reason Critically Ill: 69y/o M who resides at the [facility] and has a past medical history of insulin-dependent diabetes type 1, hypertension, bipolar disorder who was brought to the emergency department for u nresponsiveness. Psychiatry consulted for evaluation given patient's baseline of bipolar type I, in the setting of continued refusal of medications while both inpatient and in rehab facility. Stable for downgrade from ICU level of care following continued improvement in overall status. Neuro: - CAM ICU: positive - Potential contributions from hospitalization delirium - Maintain normal sleep-wake cycle, with frequent re-orientation, with direct sunlight during the day, and closed curtains at night - start home Seroquel and Zoloft dosing, pills can be crushed Cardiac/Vascular: - History paroxysmal atrial fibrillation -continue low dose Heparin drip, until able to be transitioned - NSTEMI -Likely type II NH with DKA -Troponin peaked at 13.7 with subsequent downtrend to 5.54 -ECHO demonstrated EF 65-70%, no wall motion abnormalities, mild concentric LVH -Cardiology on board - Hypertension: -Restart home losartan 25mg daily Respiratory: - Acute respiratory failure -extubated at 0840 -BiPAP 10/6, with FiO2 40% as needed -transitioned to 2L NC without complications GI/Nutrition: - NPO at this time - Protonix daily - Speech to formally evaluate swallow study given consistent inability to swallow pills Renal/Lytes: - DKA: Improved -Continue with IV fluids, until tolerating oral intake/evaluated by speech - Acute kidney injury: -improved Cr this AM down to 0.85 -continue to monitor BMPs daily - continue to monitor and replete electrolytes per ICU protocol -Received 20 mmol of K-Phos, and 1 g mag sulfate this a.m. ENDO: - ICU hyperglycemia protocol - certified adaptive physical educator consulted - transitioned to Basal with bolus insulin regimen Heme: - Anemia -Appears to be at baseline - Leukocytosis resolving -Unclear etiology --> likely from DKA -Mild elevation of procalcitonin, downtrended ID: - History of COVID-19 on previous hospitalization - COVID-19 negative on 03/22 - Procalcitonin trending down - Stopped Zosyn, started doxycycline 100 mg twice a day for 3 additional days - blood culture demonstrated gram-positive cocci in clusters --> micrococcus -serology determined no MRSA Lines/IV access: - PIV DVT prophylaxis: - low dose Heparin drip - After evaluation from speech we will either transition to Lovenox 1mg/kg BID or home Eliquis Admission and Anticipated Discharge Date Admission Date: March 21, 2020 Supervising Physician Co-Signing Physician Notes Marco Garcia was the resident-physician during care of patient. I separately evaluated patient for britton portions of the history and the exam. I was present during the critical portion of medical decision making, and I discussed the case with the resident. I generally agree with the findings and plan except for any additions/exceptions noted. Patient seen and examined at bedside. No acute distress, no adverse events overnight. Patient is not responsive verbally. Is saturating well. Hemodynamically stable. Patient was saying that he usually crushes his medications prior to eating it. There is issues with patient's bipolar disorder. I will get psychiatry involved to see the patient. Once the patient is able to swallow heparin drip can be discontinued and patient can be restarted on his apixaban. Blood culture is growing micrococcus species in 1 of the bottles which is most likely contaminant. DC Zosyn. Give doxycycline for 3 more days. Continue with BiPAP nightly and PRN shortness of breath. Overall patient is stable enough to be downgraded to medical floor. I have personally spent 33 minutes of critical care time in the direct management of this patient. This is a life/limb threatening event. This includes time spent evaluating patient, direct bedside care, chart review, placing orders, interpretation of diagnostic studies, discussion with consultants, patient, and/or family members regarding treatment decisions, as well as other required patient management activities. This time is exclusive of all separately billable procedures, and teaching time and separate from and in addition to any other critical care service time. Subjective Patient had no acute events overnight, requiring no additional support. Continues to have issues with swallowing pills, will occasionally spit them back up. Uncertain if this is refusal to swallow medications or inability. Speech therapy to evaluate for swallow study and swallow function. Seems to tolerate pills crushed in applesauce, but not whole pills. Review of Systems Review of Systems: Unobtainable due to cognitive status Physical Exam Constitutional: WD/WN, vitals as above Eyes: PERRL, conjunctivae normal, anicteric sclerae ENMT: external ear and nose normal, oropharynx normal Respiratory: no labored breathing, no retractions and does not use accessory muscles Auscultation: + rhonchi (coarse); no rales and no wheezes Cardiovascular: Rate/Rhythm: regular rate and regular rhythm Heart Sounds: no gallop, no murmur and no cardiac rub Vessels: normal peripheral pulses Gastrointestinal (Abdomen): normal bowel sounds, soft, nontender, no hepatosplenomegaly Musculoskeletal: 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 Skin: no rashes, warm and dry Neurologic: PERRL, EOMI, accommodation nl, no face palsy, no dysarthria Psychiatric: Orientation: alert and oriented x 3 Lymphatic: no cervical lymphadenopathy Results & Data Results & Data ([facility]) Vital Signs (Past 12 Hours) Vital Signs Temp Pulse Resp BP Pulse Ox 03/24/20 06:26 86 23 157/55 H 92 03/24/20 05:00 75 21 94 03/24/20 04:02 37.3 C 76 20 132/61 94 03/24/20 03:02 78 17 138/45 L 95 03/24/20 02:02 78 19 129/57 L 94 03/24/20 01:02 80 22 118/60 94 03/24/20 00:02 37.1 C 77 15 123/54 L 93 03/23/20 23:00 83 22 116/59 L 96 03/23/20 22:00 80 26 H 130/45 L 95 03/23/20 21:02 86 15 131/75 99 Laboratory Results 03/24/20 03/24/20 03/24/20 Range/Units 06:57 04:48 04:48 WBC 5.78 (4.8-10.8) K/uL RBC 3.33 L (4.7-6.1) M/uL Hgb 9.9 L (14.0-18.0) g/dL POC Hgb (14.0-18.0) g/dl Hct 28.8 L (42-52) % POC Hct (42-52) % MCV 86.5 (80-100) fL MCH 29.7 (25-34) pg MCHC 34.4 (32-36) g/dL RDW Std Deviation 47.9 H (36.4-46.3) fL RDW Coeff of Jace 15.0 H (11.5-14.5) % Plt Count 160 (130-400) K/uL MPV 10.2 (7.4-10.4) fL Immature Gran % (Auto) 0.2 % Neut % (Auto) 80.8 % Lymph % (Auto) 11.2 % Woodson % (Auto) 6.2 % Eos % (Auto) 1.4 % Baso % (Auto) 0.2 % Neut # (Auto) 4.67 (1.4-6.5) K/uL Lymph # (Auto) 0.65 L (1.2-3.4) K/uL Woodson # (Auto) 0.36 (0.11-0.59) K/uL Eos # (Auto) 0.08 (0-0.5) K/uL Baso # (Auto) 0.01 (0-0.2) K/uL Immature Gran # (Auto) 0.01 (0.00-0.02) K/uL APTT 57.6 H* (21.0-31.0) Seconds PTT Ratio 2.1 POC Sodium (135-144) mmol/L Sodium (136-145) mmol/L POC Potassium (3.3-5.0) mmol/L Potassium (3.5-5.1) mmol/L POC Chloride (101-112) mmol/L Chloride (98-107) mmol/L Carbon Dioxide (21-32) mmol/L POC Total CO2 (24-31) mmol/L Anion Gap (3-11) POC Anion Gap (16-25) mmol/L POC BUN (7-18) mg/dl BUN (7-18) mg/dl Creatinine (0.6-1.4) mg/dl POC Creatinine (0.6-1.3) mg/dl Est Cr Clr Drug Dosing ml/min Est GFR ( Amer) Est GFR (Non-Af Amer) BUN/Creatinine Ratio (10-20) Glucose (70-99) mg/dl POC Glucose 224 H (70-99) mg/dl POC Glucose (other) (70-99) mg/dl Calcium (8.5-10.1) mg/dl POC Ioniz Calcium Juan (1.12-1.32) mmol/l Phosphorus (2.5-4.9) mg/dl Magnesium (1.8-2.4) mg/dl 03/24/20 03/24/20 03/23/20 Range/Units 04:48 04:12 23:47 WBC (4.8-10.8) K/uL RBC (4.7-6.1) M/uL Hgb (14.0-18.0) g/dL POC Hgb (14.0-18.0) g/dl Hct (42-52) % POC Hct (42-52) % MCV (80-100) fL MCH (25-34) pg MCHC (32-36) g/dL RDW Std Deviation (36.4-46.3) fL RDW Coeff of Jace (11.5-14.5) % Plt Count (130-400) K/uL MPV (7.4-10.4) fL Immature Gran % (Auto) % Neut % (Auto) % Lymph % (Auto) % Woodson % (Auto) % Eos % (Auto) % Baso % (Auto) % Neut # (Auto) (1.4-6.5) K/uL Lymph # (Auto) (1.2-3.4) K/uL Woodson # (Auto) (0.11-0.59) K/uL Eos # (Auto) (0-0.5) K/uL Baso # (Auto) (0-0.2) K/uL Immature Gran # (Auto) (0.00-0.02) K/uL APTT (21.0-31.0) Seconds PTT Ratio POC Sodium (135-144) mmol/L Sodium 140 (136-145) mmol/L POC Potassium (3.3-5.0) mmol/L Potassium 3.6 (3.5-5.1) mmol/L POC Chloride (101-112) mmol/L Chloride 109 H (98-107) mmol/L Carbon Dioxide 26 (21-32) mmol/L POC Total CO2 (24-31) mmol/L Anion Gap 5.0 (3-11) POC Anion Gap (16-25) mmol/L POC BUN (7-18) mg/dl BUN 8 D (7-18) mg/dl Creatinine 0.85 D (0.6-1.4) mg/dl POC Creatinine (0.6-1.3) mg/dl Est Cr Clr Drug Dosing 75.1 ml/min Est GFR ( Amer) 103.8 Est GFR (Non-Af Amer) 89.5 BUN/Creatinine Ratio 9.8 L (10-20) Glucose 158 H (70-99) mg/dl POC Glucose 149 H 187 H (70-99) mg/dl POC Glucose (other) (70-99) mg/dl Calcium 7.9 L (8.5-10.1) mg/dl POC Ioniz Calcium Juan (1.12-1.32) mmol/l Phosphorus 1.8 L (2.5-4.9) mg/dl Magnesium 1.9 (1.8-2.4) mg/dl 03/23/20 03/23/20 03/23/20 Range/Units 20:01 16:07 11:19 WBC (4.8-10.8) K/uL RBC (4.7-6.1) M/uL Hgb (14.0-18.0) g/dL POC Hgb (14.0-18.0) g/dl Hct (42-52) % POC Hct (42-52) % MCV (80-100) fL MCH (25-34) pg MCHC (32-36) g/dL RDW Std Deviation (36.4-46.3) fL RDW Coeff of Jace (11.5-14.5) % Plt Count (130-400) K/uL MPV (7.4-10.4) fL Immature Gran % (Auto) % Neut % (Auto) % Lymph % (Auto) % Woodson % (Auto) % Eos % (Auto) % Baso % (Auto) % Neut # (Auto) (1.4-6.5) K/uL Lymph # (Auto) (1.2-3.4) K/uL Woodson # (Auto) (0.11-0.59) K/uL Eos # (Auto) (0-0.5) K/uL Baso # (Auto) (0-0.2) K/uL Immature Gran # (Auto) (0.00-0.02) K/uL APTT (21.0-31.0) Seconds PTT Ratio POC Sodium (135-144) mmol/L Sodium (136-145) mmol/L POC Potassium (3.3-5.0) mmol/L Potassium (3.5-5.1) mmol/L POC Chloride (101-112) mmol/L Chloride (98-107) mmol/L Carbon Dioxide (21-32) mmol/L POC Total CO2 (24-31) mmol/L Anion Gap (3-11) POC Anion Gap (16-25) mmol/L POC BUN (7-18) mg/dl BUN (7-18) mg/dl Creatinine (0.6-1.4) mg/dl POC Creatinine (0.6-1.3) mg/dl Est Cr Clr Drug Dosing ml/min Est GFR ( Amer) Est GFR (Non-Af Amer) BUN/Creatinine Ratio (10-20) Glucose (70-99) mg/dl POC Glucose 186 H 265 H 254 H (70-99) mg/dl POC Glucose (other) (70-99) mg/dl Calcium (8.5-10.1) mg/dl POC Ioniz Calcium Juan (1.12-1.32) mmol/l Phosphorus (2.5-4.9) mg/dl Magnesium (1.8-2.4) mg/dl 03/23/20 03/21/20 Range/Units 11:05 15:43 WBC (4.8-10.8) K/uL RBC (4.7-6.1) M/uL Hgb (14.0-18.0) g/dL POC Hgb 10.9 L (14.0-18.0) g/dl Hct (42-52) % POC Hct 32 L (42-52) % MCV (80-100) fL MCH (25-34) pg MCHC (32-36) g/dL RDW Std Deviation (36.4-46.3) fL RDW Coeff of Jace (11.5-14.5) % Plt Count (130-400) K/uL MPV (7.4-10.4) fL Immature Gran % (Auto) % Neut % (Auto) % Lymph % (Auto) % Woodson % (Auto) % Eos % (Auto) % Baso % (Auto) % Neut # (Auto) (1.4-6.5) K/uL Lymph # (Auto) (1.2-3.4) K/uL Woodson # (Auto) (0.11-0.59) K/uL Eos # (Auto) (0-0.5) K/uL Baso # (Auto) (0-0.2) K/uL Immature Gran # (Auto) (0.00-0.02) K/uL APTT 62.4 H* (21.0-31.0) Seconds PTT Ratio 2.2 POC Sodium 132 L (135-144) mmol/L Sodium (136-145) mmol/L POC Potassium 6.9 H* (3.3-5.0) mmol/L Potassium (3.5-5.1) mmol/L POC Chloride 106 (101-112) mmol/L Chloride (98-107) mmol/L Carbon Dioxide (21-32) mmol/L POC Total CO2 6 L* (24-31) mmol/L Anion Gap (3-11) POC Anion Gap 28.0 H (16-25) mmol/L POC BUN 51 H (7-18) mg/dl BUN (7-18) mg/dl Creatinine (0.6-1.4) mg/dl POC Creatinine 2.4 H (0.6-1.3) mg/dl Est Cr Clr Drug Dosing ml/min Est GFR ( Amer) Est GFR (Non-Af Amer) BUN/Creatinine Ratio (10-20) Glucose (70-99) mg/dl POC Glucose (70-99) mg/dl POC Glucose (other) > 700 H* (70-99) mg/dl Calcium (8.5-10.1) mg/dl POC Ioniz Calcium Juan 1.13 (1.12-1.32) mmol/l Phosphorus (2.5-4.9) mg/dl Magnesium (1.8-2.4) mg/dl Medications Administered Current Inpatient Medications Aspirin (Aspirin 81 Mg Ectab) 81 mg PO [facility] Stop: 04/22/20 14:29 Last Admin: 03/24/20 08:05 Dose: 81 mg Documented by: Atorvastatin Calcium (Atorvastatin 20 Mg Tab) 20 mg PO [facility] Stop: 04/22/20 14:29 Last Admin: 03/24/20 08:05 Dose: 20 mg Documented by: Dextrose (Dextrose 50% 50 Ml Syringe) 25 - 50 ml IV UD PRN; Protocol PRN Reason: Hypoglycemia Protocol Stop: 04/20/20 16:59 Doxycycline Hyclate (Doxycycline Hyclate 100 Mg Cap) 100 mg PO BID AYDEN Stop: 03/27/20 08:59 Last Admin: 03/24/20 08:47 Dose: 100 mg Documented by: Glucagon (Glucagon For Inj 1 Mg Vial) 1 mg IM UD PRN; Protocol PRN Reason: Hypoglycemia Protocol Stop: 04/20/20 16:59 Glucose (Glucose 40% Gel 15 Gm Tube) 15 - 30 gm PO UD PRN; Protocol PRN Reason: Hypoglycemia Protocol Stop: 04/20/20 16:59 Glucose (Glucose 10 Tabs/Tube) 4 - 8 tabs PO UD PRN; Protocol PRN Reason: Hypoglycemia Protocol Stop: 04/20/20 16:59 Pantoprazole Sodium 40 mg/ (Syringe) 10 mls @ 5 mls/min IV DAILY@1100 AYDEN Stop: 04/21/20 10:59 Last Admin: 03/23/20 11:09 Dose: 5 mls/min Documented by: Heparin Sodium/Dextrose (Heparin Sodium/Dextrose) 25,000 units in 500 mls @ 15 mls/hr IV .Q24H AYDEN; Protocol Stop: 04/21/20 10:59 Last Titration: 03/24/20 06:56 Dose: 750 units/hr, 15 mls/hr Documented by: Dextrose/Sodium Chloride (D5w And 1/2nss) 1,000 mls @ 50 mls/hr IV .Q20H AYDEN Stop: 04/21/20 05:29 Last Admin: 03/23/20 20:08 Dose: 75 mls/hr Documented by: Potassium Phosphate 21 mmol/ (Sodium Chloride) 507 mls @ 140 mls/hr IV ONE ONE Stop: 03/24/20 11:07 Last Admin: 03/24/20 08:02 Dose: 140 mls/hr Documented by: Insulin Aspart (Insulin Aspart 100 Units/Ml 3 Ml Pen) 0 units SC Q4 AYDEN Stop: 04/22/20 11:59 Last Admin: 03/24/20 08:06 Dose: 3 units Documented by: Insulin Glargine (Insulin Glargine Solostar 100 Units/Ml 3 Ml Pen) 18 units SC Q24H [facility] Stop: 04/22/20 11:59 Last Admin: 03/24/20 08:06 Dose: 18 units Documented by: Metoprolol Tartrate (Metoprolol Tartrate 25 Mg Tab) 25 mg PO BID AYDEN Stop: 04/22/20 20:59 Last Admin: 03/24/20 08:05 Dose: 25 mg Documented by: Metoprolol Tartrate (Metoprolol Tartrate 1 Mg/Ml Vial) 2.5 mg IV Q4H PRN PRN Reason: SBP greater than 150 Stop: 04/22/20 14:08 Miscellaneous (Carbohydrates For Hypoglycemia ) 15 - 30 gm PO UD PRN PRN Reason: Hypoglycemia Treatment Stop: 04/20/20 16:59 Miscellaneous Information (Pharmacy Glycemic Mgmt Consult) 1 ea N/A UD PRN PRN Reason: Consult Stop: 04/21/20 09:14 Resident Activity Tracking Resident Involvement: Resident Care Provided Care Provided: Adult Hospital Medicine (Critical Care) (1) Respiratory failure Chronicity: acute Respiratory failure complication: unspecified whether with hypoxia or hypercapnia Qualified Code(s): J96.00 - Acute respiratory failure, unspecified whether with hypoxia or hypercapnia
[2020-03-24] MEDS ORDERED: MAGNESIUM SULFATE / D5W 1 GM/100 ML BAG IV ONE (09:45)
[2020-03-24] MEDS: D5W AND 1/2NSS 1,000 ML IV SCH (10:13)
[2020-03-24] MEDS ORDERED: ACETAMINOPHEN 650 MG SUPP PR STA (10:38)
[2020-03-24] MEDS ORDERED: QUEtiapine FUMARATE 25 MG TABLET PO SCH (11:00)
[2020-03-24] MEDS: LOSARTAN POTASSIUM 25 MG TAB PO SCH (11:17)
[2020-03-24] MEDS: PANTOprazole 40 MG in SYRINGE 0 ML IV SCH (11:17)
[2020-03-24] MEDS: HEPARIN SODIUM/DEXTROSE 25,000 UNITS/500 ML BAG IV SCH (11:26)
--- NOTE | 2020-03-24 11:29 | Pharmacy Report ---
Pharmacy Glycemic Short Note 2 - Date of Service March 24, 2020 - Glycemic Short BSG Results (Last 24 hours): 03/23/20 03/23/20 03/23/20 11:19 16:07 20:01 Glucose POC Glucose 254 H 265 H 186 H 03/23/20 03/24/20 03/24/20 23:47 04:12 04:48 Glucose 158 H POC Glucose 187 H 149 H 03/24/20 03/24/20 06:57 11:05 Glucose POC Glucose 224 H 266 H OUTPATIENT ANTIDIABETIC REGIMEN: * Lantus 18 units Q PM * Novolog 10 units BID w/ meals * A1c = 10.9% 03/22/20 ASSESSMENT: 03/24 * Glycemic control acceptable for this patient over last 24 hrs. Although only ~50% of his BSGs have been at goal, this is better than we usually achieve during his admission. * He remains NPO, but dextrose containing IVFs continue to infusion. His BSG pattern suggests that his Lantus does not provide a full 24 hr duration, and this his basal insulin needs decrease overnight (as we saw on prior admissions). Normally I would give Lantus BID in such cases, however I worry that doing so will result in poor control as he often tends to refuse insulin doses. Will continue to trial once daily Lantus dosed in the AM. * Novolog correction may need increased during awake hours, but decreased HS and overnight. I believe a small increase in correction will be tolerated well while receiving continuous dextrose however. Will require changes when dextrose infusion stopped. 03/23 * Type 1 diabetic admitted with severe DKA on 03/21 due to non-compliance with insulin regimen, CHIVO and respiratory failure requiring intubation * He was managed with IV fluid resuscitation, IV insulin drip and e-lyte replacement * Yesterday, patient's AG acidosis had resolved and transition to SQ regimen initiated. Insulin drip d/c'd overnight. * This AM patient has been extubated. He remains NPO at this time however, but dextrose containing IVF's continue * This patient is known to the Glycemic Control Service from his recent hospitalization. During last admission he frequently refused insulin doses leading to wide swings in BSGs. Many times nursing staff needed to offer his basal insulin dose more than once to prevent severe hyperglycemic episodes in a type 1 diabetic. PLAN FOR INPATIENT GLYCEMIC CONTROL: * Basal insulin - no change * Lantus 18 units SQ Q 24 hrs - while receiving dextrose containing IVF's. It is very important that type 1 diabetics receive some dextrose provision IV while NPO for prolonged periods of time to allow for continued basal insulin administration. * Bolus insulin - changes to correction * NovoLog per scale Q4hrs while NPO * Goal Range: Low 110 mg/dL - High 140 mg/dL * Correction Factor: 25 mg/dL/unit * Nutritional / Prandial insulin per carb ratio of 1 unit per 10 grams CHO consumed PLAN FOR DISCHARGE: * to be determined.
--- NOTE | 2020-03-24 14:04 | Psychiatric Consultation ---
Date of Consultation March 24, 2020 Impression / Recommendations Impression Dr. Mat Luna was directly involved in review and discussion of the patient's case and participated in medical decision making regarding treatment recommendations. RECOMMENDATIONS: 03/24 - Psychiatric consultation requested by hospitalist team to evaluate patient given his reported history of bipolar disorder, with specific concern related to medication refusal. Quetiapine dosing was updated to reflect care home records of 12.5mg qAM, 12.5mg @16:00, and 25mg qHS. Pt is also prescribed sertraline 50mg at HS. - Pt is cooperative during conversation, though a limited historian. He is able to verbalize confirmation of his current psychotropic medication regimen and historical diagnosis of bipolar disorder, but denies any present medication concerns or symptoms consistent with history of bipolar mood presentation. Pt certainly does not exhibit any signs of tanesha during encounter. Pt denies any acute psychiatric needs at this time. He denies SI, and there is not present criteria for inpatient psychiatric commitment. - Collateral information obtained form [facility]. There were reportedly no signs of tanesha observed by staff prior to patient's medical admission. They report episodes of medication noncompliance "once a month or so." They do report patient has been in a better mood when compared to his initial presentation to their facility in 07/2019. There was no suggestion from their staff that patient's behavior was consistent with his underlying bipolar disorder history. - Although collateral information from [facility] was helpful in clarifying mood state prior to his hospital admission, it would still be beneficial to gather collateral from next-of-kin of possible to obtain a better understanding of patient's baseline cognitive functioning and understanding of his medical conditions. This will help to better determine if patient's intermittent refusal of medications is consistent with low intellectual functioning, personality, cognitive disorder, larger capacity concerns, altered mental status related to general medical conditions, or underlying psychiatric conditions. - Longer term recommendations include further psychiatric evaluation as an outpatient to determine necessity of quetiapine dosing. Given concern for unstable blood glucose and intermittent insulin refusal, quetiapine and other antipsychotic medications may not be the most appropriate long-term medication options for this patient. Can reassess medication regimen if indicated once collateral information has been obtained. - Will continue to follow and attempt to gather collateral information. Appreciate the opportunity to participate in the care of this patient. Please reach out to our service with any additional questions or updates. Psych History Identifying Data 69-year-old male admitted medically on 03/21/2020 after presenting to the ED from [facility] following an episode of unresponsiveness. Pt was admitted and is being treated medically for metabolic encephalopathy, DKA, acute respiratory failure, and acute kidney injury. Psychiatric consultation was requested to evaluate patient due to diagnosis of bipolar disorder and concern for recent medication refusal. Chief Complaint "I'm fine." History of Present Illness Bhavin Jaffe is a 69-year-old male admitted medically on 03/21/2020 from [facility] due to concern for altered mental status. Pt had reportedly been refusing his insulin and was admitted medically for treatment of DKA, metabolic encephalopathy, acute respiratory failure, CHIVO and other medical concerns. P sychiatric consultation was requested by hospitalist team to evaluate patient due to a reported diagnosis of bipolar disorder and concern for medication refusal. Collateral obtained from [facility] by psychiatric nurse liaison. No reports of recent symptoms suggestive a tanesha or depression. It is reported that intermittent medication refusal is not unusual for this patient. Pt has been at their facility since 07/2019. Psychotropic medication regimen confirmed with staff at [facility]. Pt was cooperative with psychiatric assessment, though seems to be a limited historian. Pt was initially asked the reason for his hospitalization, and he stared at this provider without responding. When specifically asked "was it related to your blood sugar?" he was able to state "yes." Questions requiring complex responses went unanswered for the duration of our interview; however, patient was able to respond to questions requiring only one or two words. Pt reports understanding that his blood sugar was "too high" and admits to intermittently refusing his insulin. Pt was unable to verbalize a reason for this. He admits the he is feeling "fine" recently, and denies any concerning mood changes. Pt states sleep and appetite have been "normal." Pt is unable to spontaneously produce symptoms of tanesha based on his history. When provided with common examples of manic symptoms, patient denies a history of these. Pt is able to confirm his current psychotropic medication regimen, and states he has been taking quetiapine and sertraline for "8 years." He denies any present mood concerns and feels his medications are effective, but can specify which symptoms they target. Pt denies SI and other safety concerns. Pt denies other questions or needs from our service at this time. Past Psychiatric History Current Psychiatric Diagnosis: reported diagnosis of bipolar disorder Outpatient Services: Care provided by primary team at [facility] since 07/2019 Allergies Allergy/AdvReac Type Severity Reaction Status Date / Time Unable to Assess Allergy Unverified 12/10/19 11:37 Home Medications Home Medications Medication Instructions Recorded Confirmed Type cholecalciferol (vitamin D3) 1,000 unit PO DAILY 12/10/19 03/21/20 History apixaban [Eliquis] 5 mg PO BID #60 tab 01/02/20 03/21/20 Rx losartan 25 mg PO QAM #30 tab 01/02/20 03/21/20 Rx metoprolol tartrate 25 mg PO BID #60 tab 01/02/20 03/21/20 Rx quetiapine 12.5 mg PO BID #20 tab 01/02/20 03/21/20 Rx quetiapine 25 mg PO HS #20 tab 01/02/20 03/21/20 Rx sertraline 50 mg PO HS #30 tab 01/02/20 03/21/20 Rx atorvastatin 10 mg PO DAILY 03/21/20 03/21/20 History insulin aspart U-100 [Novolog 10 unit SUBCUT BID 03/21/20 03/21/20 History U-100 Insulin aspart] insulin glargine [Lantus U-100 18 units SQ QPM 03/21/20 03/21/20 History Insulin] Family History Unknown Personal History Living Arrangements: Assisted ([facility]) Patient History Medical History Bipolar 1 disorder Cognitive disorder Depression Diabetes mellitus type 1 with complications HTN (hypertension) Hypertension Status post amputation of toe of left foot Surgical History Status post below-knee amputation of left lower extremity Family History Other Family history unobtainable due to patient's condition Social History Smoking Status: Unknown if ever smoked Preferred Language: Azerbaijani Communication Ability: Unable Mobile Sales Consultant Required: No Beliefs That Will Affect Care: None marital status: Single Current Living Situation: Assisted Current Living Situation Comment: [facility] Feels Safe at Home: Yes Physical Exam Psychiatric: Orientation: alert and cooperative (though somewhat limited engagement in interview) Apperance: appropriately dressed, appropriately groomed and appeared stated age male, laying in bed in no acute distress. Pt is appropriately dressed for setting, wearing a hospital gown. Level of grooming/hygiene appears adequate. Eye Contact: + fair eye contact (occasionally closing eyes for prolonged periods of time) Motor Behavior: no abnormal motor movements (observed while laying in bed) Speech: no pressured speech and + abnormal rate/rhythm/volume of speech (minimal speech - generally only answering questions with one-word phrases) If questions require a complex response, patient generally will not verbalize a response at all Affect: + flat affect and + constricted affect Mood: no depressed mood ("I'm fine") Thought Process: goal directed thought process and + concrete thought process Thought Content: reality based without delusions Suicidal Thoughts: denies suicidal thoughts, denies suicidal plan and denies suicidal intent Cognition: attention grossly intact; + language not intact Insight: + limited insight Judgement: + limited judgement Vital Signs (Past 24 Hours): Last Vital Signs Temp 37.2 C 03/24/20 12:00 Pulse 75 03/24/20 12:02 Resp 22 03/24/20 12:00 BP 173/45 H 03/24/20 11:26 Pulse Ox 95 03/24/20 12:00 Review of Systems Constitutional: reports fatigue Cardiovascular: denied Respiratory: denied Gastrointestinal: denied Neurological: denied Psychiatric: denies symptoms other than stated above Total of at least 10 systems reviewed, pertinent positives as above and in HPI. Results & Data (PSY) Medications Administered Atorvastatin Calcium (Atorvastatin 20 Mg Tab) 20 mg PO QAM [facility] Stop: 04/22/20 14:29 Last Admin: 03/24/20 08:05 Dose: 20 mg Documented by: [id number] Admin: 03/23/20 16:02 Dose: 20 mg Documented by: [id number] Doxycycline Hyclate (Doxycycline Hyclate 100 Mg Cap) 100 mg PO BID [facility] Stop: 03/27/20 08:59 Last Admin: 03/24/20 08:47 Dose: 100 mg Documented by: [id number] Pantoprazole Sodium 40 mg/ (Syringe) 10 mls @ 5 mls/min IV DAILY@1100 [facility] Stop: 04/21/20 10:59 Last Admin: 03/24/20 11:17 Dose: 5 mls/min Documented by: [id number] Admin: 03/23/20 11:09 Dose: 5 mls/min Documented by: [id number] Admin: 03/22/20 08:29 Dose: 5 mls/min Documented by: [id number] Heparin Sodium/Dextrose (Heparin Sodium/Dextrose) 25,000 units in 500 mls @ 15 mls/hr IV .Q24H [facility]; Protocol Stop: 04/21/20 10:59 Last Admin: 03/24/20 11:26 Dose: 750 units/hr, 15 mls/hr Documented by: [id number] Cosigned by: [id number] Titration: 03/24/20 11:26 Dose: 750 units/hr, 15 mls/hr Documented by: [id number] Cosigned by: [id number] Titration: 03/24/20 06:56 Dose: 750 units/hr, 15 mls/hr Documented by: [id number] Cosigned by: [id number] Titration: 03/24/20 06:20 Dose: 750 units/hr, 15 mls/hr Documented by: [id number] Cosigned by: [id number] Titration: 03/23/20 12:25 Dose: 750 units/hr, 15 mls/hr Documented by: [id number] Cosigned by: [id number] Admin: 03/23/20 11:10 Dose: 750 units/hr, 15 mls/hr Documented by: [id number] Cosigned by: [id number] Titration: 03/23/20 11:10 Dose: 750 units/hr, 15 mls/hr Documented by: [id number] Cosigned by: [id number] Titration: 03/23/20 07:05 Dose: 750 units/hr, 15 mls/hr Documented by: [id number] Cosigned by: [id number] Titration: 03/23/20 05:00 Dose: 750 units/hr, 15 mls/hr Documented by: [id number] Cosigned by: [id number] Titration: 03/22/20 16:27 Dose: 800 units/hr, 16 mls/hr Documented by: [id number] Cosigned by: [id number] Admin: 03/22/20 11:15 Dose: 800 units/hr, 16 mls/hr Documented by: [id number] Cosigned by: [id number] Dextrose/Sodium Chloride (D5w And 1/2nss) 1,000 mls @ 50 mls/hr IV .Q20H [facility] Stop: 04/21/20 05:29 Last Admin: 03/24/20 10:13 Dose: 50 mls/hr Documented by: [id number] Infusion: 03/24/20 10:09 Dose: 0 mls/hr Documented by: [id number] Admin: 03/23/20 20:08 Dose: 75 mls/hr Documented by: [id number] Infusion: 03/23/20 20:08 Dose: 75 mls/hr Documented by: [id number] Infusion: 03/23/20 12:25 Dose: 75 mls/hr Documented by: [id number] Admin: 03/23/20 08:32 Dose: 75 mls/hr Documented by: [id number] Insulin Aspart (Insulin Aspart 100 Units/Ml 3 Ml Pen) 0 units SC Q4 [facility] Stop: 04/22/20 11:59 Last Admin: 03/24/20 11:18 Dose: 5 units Documented by: [id number] Cosigned by: [id number] Admin: 03/24/20 08:06 Dose: 3 units Documented by: [id number] Cosigned by: [id number] Admin: 03/24/20 04:27 Dose: 1 units Documented by: [id number] Cosigned by: [id number] Admin: 03/24/20 04:25 Dose: 2 units Documented by: [id number] Cosigned by: [id number] Admin: 03/23/20 20:09 Dose: 2 units Documented by: [id number] Cosigned by: [id number] Admin: 03/23/20 16:10 Dose: 4 units Documented by: [id number] Cosigned by: [id number] Admin: 03/23/20 11:20 Dose: 3 units Documented by: [id number] Cosigned by: [id number] Insulin Glargine (Insulin Glargine Solostar 100 Units/Ml 3 Ml Pen) 18 units SC Q24H [facility] Stop: 04/22/20 11:59 Last Admin: 03/24/20 08:06 Dose: 18 units Documented by: [id number] Cosigned by: [id number] Admin: 03/23/20 11:10 Dose: 18 units Documented by: [id number] Cosigned by: [id number] Losartan Potassium (Losartan Potassium 25 Mg Tab) 25 mg PO QAM [facility] Stop: 04/23/20 09:59 Last Admin: 03/24/20 11:17 Dose: 25 mg Documented by: [id number] Metoprolol Tartrate (Metoprolol Tartrate 25 Mg Tab) 25 mg PO BID [facility] Stop: 04/22/20 20:59 Last Admin: 03/24/20 08:05 Dose: 25 mg Documented by: [id number] Admin: 03/23/20 20:10 Dose: 25 mg Documented by: [id number] Coding Level of Care Code 65350 U Intl Hosp Care Lvl 2
--- NOTE | 2020-03-24 14:11 | Cardiology Progress Note ---
Date of Service March 24, 2020 Assessment & Plan (1) Elevated troponin: Patient with troponin elevation, consistent with demand ischemia related to metabolic derangements. EKG performed today is improved, with resolution of the previously noted ST depression. He remains on unfractioned heparin, having been on Eliquis for stroke prophylaxis given history of atrial fibrillation. Heparin continued as swallow evaluation is ongoing. Continue minimal oral medications as tolerated including aspirin, metoprolol tartrate, losartan, atorvastatin. (2) DKA (diabetic ketoacidoses): Improved. Back on subcutaneous insulin. (3) Cognitive disorder: Patient with history of cognitive dysfunction, bipolar 1 disorder. I am uncertain what his baseline mental status is. Given his comorbidities, ongoing medical management from a cardiac standpoint is likely the best option. Admission and Anticipated Discharge Date Admission Date: March 21, 2020 Subjective Patient seen in follow-up having been extubated yesterday. He answers to simple questions. Notes no complaints. Denies chest discomfort. He apparently has been having difficulty swallowing, and is taking minimal pills swallowed with applesauce. Swallow study pending. Review of Systems Review of Systems: All systems reviewed & are unremarkable except as noted in HPI & below Physical Exam Physical Exam: Temp Pulse Resp BP Pulse Ox 37.2 C 75 22 173/45 H 95 03/24/20 12:00 03/24/20 12:02 03/24/20 12:00 03/24/20 11:26 03/24/20 12:00 Constitutional: no acute distress Respiratory: normal respiratory effort, lungs clear to auscultation Cardiovascular: RRR, no murmur, no edema Gastrointestinal (Abdomen): normal bowel sounds, soft, nontender, no hepatosplenomegaly Neurologic: Follows commands Results & Data ([facility]) Vital Signs (Past 12 Hours) Vital Signs Temp Pulse Pulse Resp BP BP Pulse Ox 03/24/20 12:02 75 03/24/20 12:00 37.2 C 70 22 95 03/24/20 11:26 77 23 173/45 H 96 03/24/20 11:00 74 25 H 94 03/24/20 10:24 76 15 169/55 H 03/24/20 10:00 37.4 C 77 26 H 03/24/20 09:24 84 27 H 176/77 H 03/24/20 09:00 69 28 H 03/24/20 08:24 78 23 153/45 H 03/24/20 08:00 37.3 C 74 83 26 H 166/61 H 95 03/24/20 07:25 80 25 H 166/67 H 95 03/24/20 07:00 89 28 H 94 03/24/20 06:27 81 19 93 03/24/20 06:26 86 23 157/55 H 92 03/24/20 05:00 75 21 94 03/24/20 04:02 37.3 C 76 20 132/61 94 03/24/20 03:02 78 17 138/45 L 95 Pulse Ox 03/24/20 12:02 03/24/20 12:00 03/24/20 11:26 03/24/20 11:00 03/24/20 10:24 03/24/20 10:00 03/24/20 09:24 03/24/20 09:00 03/24/20 08:24 03/24/20 08:00 96 03/24/20 07:25 03/24/20 07:00 03/24/20 06:27 03/24/20 06:26 03/24/20 05:00 03/24/20 04:02 03/24/20 03:02 Laboratory Results Coagulation 03/24/20 Range/Units 04:48 APTT 57.6 H* (21.0-31.0) Seconds CBC 03/24/20 Range/Units 04:48 WBC 5.78 (4.8-10.8) K/uL RBC 3.33 L (4.7-6.1) M/uL Hgb 9.9 L (14.0-18.0) g/dL Hct 28.8 L (42-52) % Plt Count 160 (130-400) K/uL Neut # (Auto) 4.67 (1.4-6.5) K/uL Lymph # (Auto) 0.65 L (1.2-3.4) K/uL Walton # (Auto) 0.36 (0.11-0.59) K/uL Eos # (Auto) 0.08 (0-0.5) K/uL Baso # (Auto) 0.01 (0-0.2) K/uL Comprehensive Metabolic Panel 03/24/20 Range/Units 04:48 Sodium 140 (136-145) mmol/L Potassium 3.6 (3.5-5.1) mmol/L Chloride 109 H (98-107) mmol/L Carbon Dioxide 26 (21-32) mmol/L BUN 8 D (7-18) mg/dl Creatinine 0.85 D (0.6-1.4) mg/dl Glucose 158 H (70-99) mg/dl Calcium 7.9 L (8.5-10.1) mg/dl Intake and Output 03/23/20 03/24/20 03/24/20 22:59 06:59 14:59 Intake Total 661.75 / 2872.75 397.75 / 2872.75 1794.5 / 1794.5 Output Total 1400 / 1400 250 / 250 Balance -738.25 / 1472.75 397.75 / 1472.75 1544.5 / 1544.5 Intake: IV 661.75 / 2872.75 397.75 / 2872.75 1794.5 / 1794.5 D5w and 1/2Nss 1,000 ml @ 50 578.75 / 870.00 1000 / 1000 mls/hr IV .Q20H [facility] Rx#: [id number] HEPARIN SODIUM/DEXTROSE 25,000 277.75 / 389.00 67.5 / 67.5 units In 500 ml @ 750 UNITS/HR 15 mls/hr IV .Q24H [facility] Rx#: [id number] MAGNESIUM SULFATE / D5W 1 gm In 100 / 100 100 ml @ 50 mls/hr IV ONE ONE Rx#:[id number] Zosyn 4.5 gm In D5 100 ml @ 30 83 / 360 120 / 360 120 / 120 mls/hr IV Q8H [facility] Rx#:[id number] Potassium Phosphate 21 Mmol In 507 / 507 Nss 500 ml @ 140 mls/hr IV ONE ONE Rx#:[id number] Oral 0 / 0 Output: Urine 250 / 250 Urine Amount (Catheter) 1399 / 1399 Gibbs/Indwelling 1399 / 1399 Other: Other Intake Source NPO NPO NPO # Unmeasured Voids 1 1 1 Weight 68.8 kg 68.8 kg Patient Weight 03/25/20 06:59 Weight 68.8 kg (1) DKA (diabetic ketoacidoses) Diabetes mellitus complication detail: with coma Diabetes mellitus type: type 1 Qualified Code(s): E10.11 - Type 1 diabetes mellitus with ketoacidosis with coma
--- NOTE | 2020-03-24 14:35 | Billing Data ---
Date of Service March 24, 2020 Coding Level of Care Code Critical Care 1st 30-74 mins Time Spent (min) 33
[2020-03-24] MEDS: QUEtiapine FUMARATE 25 MG TABLET PO SCH ×2 (16:19→21:43)
--- NOTE | 2020-03-24 19:24 | Electrocardiogram Report ---
Test Reason : Blood Pressure : / mmHG Vent. Rate : 077 BPM Atrial Rate : 077 BPM P-R Int : 134 ms QRS Dur : 086 ms QT Int : 410 ms P-R-T Axes : 077 071 061 degrees QTc Int : 463 ms Normal sinus rhythm Normal ECG When compared with ECG of 22-MAR-2020 09:15, No significant change was found Confirmed by Gaston Novak [id number] on 03/24/2020 7:23:23 PM Referred By: REFERRED SELF Confirmed By:Rahat Novak
[2020-03-24] MEDS: SERTRALINE HCL 50 MG TABLET PO SCH (21:43)
[2020-03-25] MEDS: INSULIN ASPART 100 UNITS/ML 3 ML PEN SC SCH ×6 (03:59→21:17)
[2020-03-25] MEDS: D5W AND 1/2NSS 1,000 ML IV SCH (05:52)
[2020-03-25] MEDS: ASPIRIN 81 MG CHEW PO SCH (08:01)
[2020-03-25] MEDS: METOPROLOL TARTRATE 25 MG TAB PO SCH ×2 (08:01→20:43)
[2020-03-25] MEDS: DOXYCYCLINE HYCLATE 100 MG CAP PO SCH ×2 (08:01→20:43)
[2020-03-25] MEDS: LOSARTAN POTASSIUM 25 MG TAB PO SCH ×2 (08:02→20:43)
[2020-03-25] MEDS: ATORVASTATIN 20 MG TAB PO SCH (08:02)
[2020-03-25] MEDS: INSULIN GLARGINE SOLOSTAR 100 UNITS/ML 3 ML PEN SC SCH (08:02)
[2020-03-25] MEDS: QUEtiapine FUMARATE 25 MG TABLET PO SCH ×3 (08:02→20:43)
--- NOTE | 2020-03-25 08:19 | Hospitalist Progress Note ---
Date of Service March 25, 2020 Assessment & Plan (1) Unresponsive: (2) Metabolic encephalopathy: (3) DKA (diabetic ketoacidoses): (4) Metabolic acidosis: 69 y/o M with PMH insulin-dependent DM I, HTN, bipolar, dyslipidemia presented to ER for unresponsiveness. History obtained from ER physician as patient is currently sedated and intubated. It is reported that patient had been refusing taking his insulin. Upon arrival to ER patient was tachypneic and unresponsive. He was intubated. Patient with history COVID-19 requiring hospitalization 11/2019 and during that hospitalization developed paroxysmal A. fib and was started on metoprolol tartrate and Eliquis. Initial pH was 7.02, now 7.7 (likely from bicarb amps initially after admission and correction of DKA) Anion GAP 32 now 11 BG was 961 Beta hydroxybutyrate was 74.17. Was started on insulin drip for DKA, now transitioned to subcut Acidosis resolved Extubated on 03/23/20. Currently on room air Downgraded from ICU. Aspiration precautions, some difficulty with swallowing meds noted, speech eval ordered Procal was 1.38 on admission trended down to 0.82 CT Ab/P show basilar opacities suggestive of atelectasis. Possible Aspiration Blood culture growing GPC in one bottle (Micrococcus), likely contaminant. MRSA serology negative Will follow up final result Will continue empiric antibiotics, zosyn stopped 03/24 by ICU team and doxycycline was started for next 3 days Leukocytosis resolved (5) Acute hyperkalemia: Initial K: 7.5 on admission Trended down with IVF and insulin therapy. Required repletion Normalized Monitor and manage appropriately (6) CHIVO (acute kidney injury): BUN 61, Cr: 3.17 Repeat Cr: 2.69 on admission Secondary to DKA Resolving Cr now normalized 0.85 Monitor renal functions, avoid nephrotoxic agents Hypomag, Hypophos, Hypokal. - from poor oral intake -replace and monitor (7) Elevated troponin: Trop was 0.066 on admission peaked at 13.7 trended down to 5.5 NSTEMI Continue heparin drip Echo did not show any wall motion abnormalities Cardiology on board (8) Paroxysmal atrial fibrillation with RVR: H/O PAF during hospitalization in 11/2019 On Eliquis, metoprolol tartrate at home (9) Hypertension: On lisinopril at home Start po antihypertensive once able to take po May resume lisinopril with resolution of CHIVO (10) Bipolar 1 disorder: On quetiapine, sertraline at home Psychiatry also consulted, given bipolar d/o and medication noncompliance Dispo - downgrade from ICU Admission and Anticipated Discharge Date Admission Date: March 21, 2020 Subjective Patient is lying in bed, in no acute distress. Denies any complaints. Sometimes takes long pauses before answering. Answers some questions appropriately. Yesterday only had little bit of applesauce with medications, today had a little bit of eggs for breakfast, per nursing staff he was able to take crushed medications. Currently patient says that he is hungry, nursing staff aware. Patient denies any fevers, chills, chest pain, shortness of breath, abdominal pain, nausea or vomiting. He had bowel movement. He can tell me his name however he still gets confused about the place. Review of Systems Review of Systems: All systems reviewed & are unremarkable except as noted in HPI & below Constitutional: no fever and no chills Respiratory: no cough and no dyspnea Cardiovascular: no chest pain and no palpitations Gastrointestinal: no abdominal pain, no nausea and no vomiting Physical Exam Physical Exam: Constitutional: slender male in no acute distress, breathing on RA Eyes: PERRL, conjunctivae normal, anicteric sclerae ENMT: external ear and nose normal, oropharynx normal Respiratory: normal respiratory effort, + mild rhonchi, breathing comfortably on room air Cardiovascular: RRR, no murmur, no edema Gastrointestinal (Abdomen): normal bowel sounds, soft, nontender to palpation Neurologic: PERRL, EOMI, no face palsy, no dysarthria, moves extremities spontaneously Psychiatric: Orientation: alert Oriented to person only, answers some questions appropriately, confused Results & Data Results & Data ([facility]) Vital Signs (Past 12 Hours) Vital Signs Temp Pulse Resp BP Pulse Ox 03/25/20 07:44 36.8 C 64 18 152/76 H 98 03/25/20 04:04 36.9 C 67 16 158/72 H 95 03/24/20 23:30 36.7 C 67 16 130/53 L 95 Laboratory Results 03/25/20 03/25/20 03/25/20 Range/Units 11:30 08:13 08:13 WBC (4.8-10.8) K/uL RBC (4.7-6.1) M/uL Hgb (14.0-18.0) g/dL Hct (42-52) % MCV (80-100) fL MCH (25-34) pg MCHC (32-36) g/dL RDW Std Deviation (36.4-46.3) fL RDW Coeff of Jace (11.5-14.5) % Plt Count (130-400) K/uL MPV (7.4-10.4) fL APTT 43.3 H (21.0-31.0) Seconds PTT Ratio 1.6 Sodium 140 (136-145) mmol/L Potassium 3.7 (3.5-5.1) mmol/L Chloride 108 H (98-107) mmol/L Carbon Dioxide 25 (21-32) mmol/L Anion Gap 7.0 (3-11) BUN 6 L (7-18) mg/dl Creatinine 0.66 (0.6-1.4) mg/dl Est Cr Clr Drug Dosing 96.7 ml/min Est GFR ( Amer) 115.1 Est GFR (Non-Af Amer) 99.3 BUN/Creatinine Ratio 8.8 L (10-20) Glucose 176 H (70-99) mg/dl POC Glucose 188 H (70-99) mg/dl Calcium 8.6 (8.5-10.1) mg/dl Phosphorus 2.2 L (2.5-4.9) mg/dl Magnesium 2.2 (1.8-2.4) mg/dl 03/25/20 03/25/20 03/25/20 Range/Units 08:13 07:29 03:52 WBC 5.17 (4.8-10.8) K/uL RBC 3.45 L (4.7-6.1) M/uL Hgb 10.0 L (14.0-18.0) g/dL Hct 29.9 L (42-52) % MCV 86.7 (80-100) fL MCH 29.0 (25-34) pg MCHC 33.4 (32-36) g/dL RDW Std Deviation 48.4 H (36.4-46.3) fL RDW Coeff of Jace 15.1 H (11.5-14.5) % Plt Count 146 (130-400) K/uL MPV 10.3 (7.4-10.4) fL APTT (21.0-31.0) Seconds PTT Ratio Sodium (136-145) mmol/L Potassium (3.5-5.1) mmol/L Chloride (98-107) mmol/L Carbon Dioxide (21-32) mmol/L Anion Gap (3-11) BUN (7-18) mg/dl Creatinine (0.6-1.4) mg/dl Est Cr Clr Drug Dosing ml/min Est GFR ( Amer) Est GFR (Non-Af Amer) BUN/Creatinine Ratio (10-20) Glucose (70-99) mg/dl POC Glucose 153 H 196 H (70-99) mg/dl Calcium (8.5-10.1) mg/dl Phosphorus (2.5-4.9) mg/dl Magnesium (1.8-2.4) mg/dl 03/24/20 03/24/20 03/24/20 Range/Units 23:59 20:16 15:47 WBC (4.8-10.8) K/uL RBC (4.7-6.1) M/uL Hgb (14.0-18.0) g/dL Hct (42-52) % MCV (80-100) fL MCH (25-34) pg MCHC (32-36) g/dL RDW Std Deviation (36.4-46.3) fL RDW Coeff of Jace (11.5-14.5) % Plt Count (130-400) K/uL MPV (7.4-10.4) fL APTT (21.0-31.0) Seconds PTT Ratio Sodium (136-145) mmol/L Potassium (3.5-5.1) mmol/L Chloride (98-107) mmol/L Carbon Dioxide (21-32) mmol/L Anion Gap (3-11) BUN (7-18) mg/dl Creatinine (0.6-1.4) mg/dl Est Cr Clr Drug Dosing ml/min Est GFR ( Amer) Est GFR (Non-Af Amer) BUN/Creatinine Ratio (10-20) Glucose (70-99) mg/dl POC Glucose 106 H 104 H 246 H (70-99) mg/dl Calcium (8.5-10.1) mg/dl Phosphorus (2.5-4.9) mg/dl Magnesium (1.8-2.4) mg/dl Medications Administered Current Inpatient Medications Aspirin ([facility] 81 Mg Chew) [facility] [place]: 04/24/20 08:59 Last Admin: 03/25/20 08:01 Dose: 81 mg Documented by: Atorvastatin Calcium (Atorvastatin 20 Mg Tab) 20 mg PO [facility] Stop: 04/22/20 14:29 Last Admin: 03/25/20 08:02 Dose: 20 mg Documented by: Dextrose (Dextrose 50% 50 Ml Syringe) 25 - 50 ml IV UD PRN; Protocol PRN Reason: Hypoglycemia Protocol Stop: 04/20/20 16:59 Doxycycline Hyclate (Doxycycline Hyclate 100 Mg Cap) 100 mg PO BID [facility] Stop: 03/27/20 08:59 Last Admin: 03/25/20 08:01 Dose: 100 mg Documented by: Glucagon (Glucagon For Inj 1 Mg Vial) 1 mg IM UD PRN; Protocol PRN Reason: Hypoglycemia Protocol Stop: 04/20/20 16:59 Glucose (Glucose 40% Gel 15 Gm Tube) 15 - 30 gm PO UD PRN; Protocol PRN Reason: Hypoglycemia Protocol Stop: 04/20/20 16:59 Glucose (Glucose 10 Tabs/Tube) 4 - 8 tabs PO UD PRN; Protocol PRN Reason: Hypoglycemia Protocol Stop: 04/20/20 16:59 Pantoprazole Sodium 40 mg/ (Syringe) 10 mls @ 5 mls/min IV DAILY@1100 [facility] Stop: 04/21/20 10:59 Last Admin: 03/24/20 11:17 Dose: 5 mls/min Documented by: Heparin Sodium/Dextrose (Heparin Sodium/Dextrose) 25,000 units in 500 mls @ 15 mls/hr IV .Q24H [facility]; Protocol Stop: 04/21/20 10:59 Last Titration: 03/25/20 07:15 Dose: 750 units/hr, 15 mls/hr Documented by: Dextrose/Sodium Chloride (D5w And 1/2nss) 1,000 mls @ 50 mls/hr IV .Q20H [facility] Stop: 04/21/20 05:29 Last Admin: 03/25/20 05:52 Dose: 50 mls/hr Documented by: Insulin Aspart (Insulin Aspart 100 Units/Ml 3 Ml Pen) 0 units SC Q4 [facility] Stop: 04/22/20 11:59 Last Admin: 03/25/20 08:03 Dose: 2 units Documented by: Insulin Glargine (Insulin Glargine Solostar 100 Units/Ml 3 Ml Pen) 18 units SC Q24H [facility] Stop: 04/22/20 11:59 Last Admin: 03/25/20 08:02 Dose: 18 units Documented by: Losartan Potassium (Losartan Potassium 25 Mg Tab) 25 mg PO QAM [facility] Stop: 04/23/20 09:59 Last Admin: 03/25/20 08:02 Dose: 25 mg Documented by: Metoprolol Tartrate (Metoprolol Tartrate 25 Mg Tab) 25 mg PO BID [facility] Stop: 04/22/20 20:59 Last Admin: 03/25/20 08:01 Dose: 25 mg Documented by: Metoprolol Tartrate (Metoprolol Tartrate 1 Mg/Ml Vial) 2.5 mg IV Q4H PRN PRN Reason: SBP greater than 150 Stop: 04/22/20 14:08 Miscellaneous (Carbohydrates For Hypoglycemia ) 15 - 30 gm PO UD PRN PRN Reason: Hypoglycemia Treatment Stop: 04/20/20 16:59 Miscellaneous Information (Pharmacy Glycemic Mgmt Consult) 1 ea N/A UD PRN PRN Reason: Consult Stop: 04/21/20 09:14 Quetiapine Fumarate (Quetiapine Fumarate 25 Mg Tablet) 25 mg PO [facility] Stop: 04/23/20 20:59 Last Admin: 03/24/20 21:43 Dose: 25 mg Documented by: Quetiapine Fumarate (Quetiapine Fumarate 25 Mg Tablet) 12.5 mg PO BID@0900,1400 [facility] Stop: 04/23/20 13:59 Last Admin: 03/25/20 08:02 Dose: 12.5 mg Documented by: Sertraline HCl (Sertraline Hcl 50 Mg Tablet) 50 mg PO HS [facility] Stop: 04/23/20 20:59 Last Admin: 03/24/20 21:43 Dose: 50 mg Documented by: (1) DKA (diabetic ketoacidoses) Diabetes mellitus complication detail: with coma Diabetes mellitus type: type 1 Qualified Code(s): E10.11 - Type 1 diabetes mellitus with ketoacidosis with coma
[2020-03-25 08:35] LABS: Hematocrit (blood only) 29.9 % (42-52); Mean Corpuscular Hgb Conc 33.4 g/dL (32-36); Mean Corpuscular Volume 86.7 fL (80-100); Mean Platelet Volume 10.3 fL (7.4-10.4); Platelet Count 146 K/uL (130-400); RDW Coefficient of Variation 15.1 % (11.5-14.5); RDW Standard Deviation 48.4 fL (36.4-46.3); Red Blood Count 3.45 M/uL (4.7-6.1); White Blood Count 5.17 K/uL (4.8-10.8)
[2020-03-25 08:37] LABS: Partial Thromboplastin Ratio 1.6; Partial Thromboplastin Time 43.3 Seconds (21.0-31.0)
[2020-03-25 08:55] LABS: BUN Creatinine Ratio 8.8 (10-20); Calcium 8.6 mg/dl (8.5-10.1); Creatinine Clr Calc Pharmacy 96.7 ml/min; Est GFR (African American) 115.1; Est GFR (Non-African American) 99.3; Magnesium 2.2 mg/dl (1.8-2.4); Potassium 3.7 mmol/L (3.5-5.1)
[2020-03-25 08:56] LABS: Phosphorus 2.2 mg/dl (2.5-4.9)
[2020-03-25] MEDS ORDERED: POTASSIUM PHOS 3 MMOL/1 ML INFUSION IV STA (09:07)
[2020-03-25] MEDS ORDERED: HEPARIN IV BOLUS 3,000 UNITS in SYRINGE 0 ML IV ONE (09:15)
[2020-03-25] MEDS ORDERED: POTASSIUM PHOSPHATE 15 MMOL in SODIUM CHLORIDE 0.9% 250 ML IV ONE (09:30)
--- NOTE | 2020-03-25 10:24 | Pharmacy Report ---
Pharmacy Glycemic Short Note 2 - Date of Service March 25, 2020 - Glycemic Short BSG Results (Last 24 hours): 03/24/20 03/24/20 03/24/20 11:05 15:47 20:16 Glucose POC Glucose 266 H 246 H 104 H 03/24/20 03/25/20 03/25/20 23:59 03:52 07:29 Glucose POC Glucose 106 H 196 H 153 H 03/25/20 08:13 Glucose 176 H POC Glucose OUTPATIENT ANTIDIABETIC REGIMEN: * Lantus 18 units Q PM * Novolog 10 units BID w/ meals * A1c = 10.9% 03/22/20 ASSESSMENT: 03/25 * Glycemic control acceptable, although only because patient's BSG's are historically difficult to control well. No hypoglycemic episodes noted, although patient is still experiencing his usual increased BSG's mid-day (see 03/24 below). * Patient remains on [id number] IVF @ 50 mL/hr for prior NPO status. Patient now ordered a diet. Discussed w Dr. Cobb - plan is to keep it until PO intake adequate. At breakfast today, he only had three bites of eggs and one bite of pudding for breakfast (per MEGHANA Velze). But po intake improved at lunch (all of mashed potatoes and pudding) therefore [id number] IVF was stopped * Will loosen correction factor * Will add scale in for AM Lantus * Will change Novolog to ACHS, with one overnight check 03/24 * Glycemic control acceptable for this patient over last 24 hrs. Although only ~50% of his BSGs have been at goal, this is better than we usually achieve during his admission. * He remains NPO, but dextrose containing IVFs continue to infusion. His BSG pattern suggests that his Lantus does not provide a full 24 hr duration, and this his basal insulin needs decrease overnight (as we saw on prior admissions). Normally I would give Lantus BID in such cases, however I worry that doing so will result in poor control as he often tends to refuse insulin doses. Will continue to trial once daily Lantus dosed in the AM. * Novolog correction may need increased during awake hours, but decreased HS and overnight. I believe a small increase in correction will be tolerated well while receiving continuous dextrose however. Will require changes when dextrose infusion stopped. 9/8 * Type 1 diabetic admitted with severe DKA on 03/21 due to non-compliance with insulin regimen, CHIVO and respiratory failure requiring intubation * He was managed with IV fluid resuscitation, IV insulin drip and e-lyte replacement * Yesterday, patient's AG acidosis had resolved and transition to SQ regimen initiated. Insulin drip d/c'd overnight. * This AM patient has been extubated. He remains NPO at this time however, but dextrose containing IVF's continue * This patient is known to the Glycemic Control Service from his recent hospitalization. During last admission he frequently refused insulin doses leading to wide swings in BSGs. Many times nursing staff needed to offer his basal insulin dose more than once to prevent severe hyperglycemic episodes in a type 1 diabetic. PLAN FOR INPATIENT GLYCEMIC CONTROL: * Basal insulin - add in reduced scale based on BSG * Lantus 16-18 units SQ qAM * Bolus insulin - loosen correction * NovoLog per scale ACHS with one overnight check * Goal Range: Low 110 mg/dL - High 140 mg/dL * Correction Factor: 30 mg/dL/unit * Nutritional / Prandial insulin per carb ratio of 1 unit per 10 grams CHO consumed PLAN FOR DISCHARGE: * to be determined.
[2020-03-25] MEDS: PANTOprazole 40 MG in SYRINGE 0 ML IV SCH (11:56)
[2020-03-25] MEDS: HEPARIN SODIUM/DEXTROSE 25,000 UNITS/500 ML BAG IV SCH (11:56)
[2020-03-25 15:31] LABS: Partial Thromboplastin Ratio 2.3
[2020-03-25 15:54] LABS: Partial Thromboplastin Time 64.8 Seconds (21.0-31.0)
--- NOTE | 2020-03-25 16:35 | Cardiology Progress Note ---
Date of Service March 25, 2020 Assessment & Plan (1) Elevated troponin: Demand ischemia in the setting of profound metabolic derangement, DKA, with hyperdynamic LVEF no regional wall motion abnormalities echocardiogram performed peak troponin elevation. Is reportedly swallowing his pills with pudding. Continue aspirin, metoprolol, atorvastatin, losartan. Blood pressure has been above goal today, increase losartan to 25 mg twice daily. (2) DKA (diabetic ketoacidoses): Uncertain of what the inciting event was, it is resolved at present. From a significant acidosis. (3) Cognitive disorder: Patient seems to be back to his previous mental status. (4) Paroxysmal atrial fibrillation with RVR: Previously diagnosed with paroxysmal atrial fibrillation during his prostate in December, with COVID-19 pneumonia. Continue metoprolol. Acute kidney injury noted on presentation, with creatinine 3 mg/dL, now normalized. Transition from IV heparin, back to Eliquis 5 mg twice daily. Although of course with his history of recent acute kidney injury, use of Eliquis must be performed with a great deal of caution, I still think it is likely most appropriate agent future ease of administration at the shelter and to avoid labile INR measurements which I would anticipate would occur on coumadin. Admission and Anticipated Discharge Date Admission Date: March 21, 2020 Subjective Patient denies any cardiac complaint. Answers questions with "yes "and "no ". He does not elaborate any further. Telemetry reveals sinus rhythm in the low 60s. Physical Exam Physical Exam: Temp Pulse Resp BP Pulse Ox 37 C 63 18 161/70 H 97 03/25/20 16:06 03/25/20 16:06 03/25/20 16:06 03/25/20 16:06 03/25/20 16:06 Constitutional: no acute distress Respiratory: normal respiratory effort, lungs clear to auscultation Cardiovascular: RRR, no murmur, no edema Gastrointestinal (Abdomen): normal bowel sounds, soft, nontender, no hepatosplenomegaly Neurologic: Follows commands, moves extremities Results & Data ([facility]) Vital Signs (Past 12 Hours) Vital Signs Temp Pulse Pulse Resp BP BP Pulse Ox 03/25/20 16:06 37 C 63 18 161/70 H 97 03/25/20 15:39 64 03/25/20 11:39 37.0 C 73 16 141/78 H 95 03/25/20 08:00 67 03/25/20 07:44 36.8 C 64 18 152/76 H 98 Laboratory Results Coagulation 03/25/20 03/25/20 Range/Units 08:13 14:56 APTT 43.3 H 64.8 H* (21.0-31.0) Seconds CBC 03/25/20 Range/Units 08:13 WBC 5.17 (4.8-10.8) K/uL RBC 3.45 L (4.7-6.1) M/uL Hgb 10.0 L (14.0-18.0) g/dL Hct 29.9 L (42-52) % Plt Count 146 (130-400) K/uL Comprehensive Metabolic Panel 03/25/20 Range/Units 08:13 Sodium 140 (136-145) mmol/L Potassium 3.7 (3.5-5.1) mmol/L Chloride 108 H (98-107) mmol/L Carbon Dioxide 25 (21-32) mmol/L BUN 6 L (7-18) mg/dl Creatinine 0.66 (0.6-1.4) mg/dl Glucose 176 H (70-99) mg/dl Calcium 8.6 (8.5-10.1) mg/dl Intake and Output 03/25/20 03/25/20 03/25/20 06:59 14:59 22:59 Intake Total 982.5 / 2777.0 966.583 / 1073.516 106.933 / 1073.516 Output Total 1051 / 1051 Balance 982.5 / 2527.0 -84.417 / 22.516 106.933 / 22.516 Intake: IV 982.5 / 2777.0 916.583 / 1023.516 106.933 / 1023.516 D5w and 1/2Nss 1,000 ml @ 50 982.5 / 1982.5 333.333 / 333.333 mls/hr IV .Q20H [facility] Rx#: [id number] HEPARIN SODIUM/DEXTROSE 25,000 328.25 / 435.183 106.933 / 435.183 units In 500 ml @ 800 UNITS/HR 16 mls/hr IV .Q24H [facility] Rx#: [id number] Potassium Phosphate 15 Mmol In 255 / 255 Nss 250 ml @ 100 mls/hr IV 0930 ONE Rx#:[id number] Oral 50 / 50 Output: Urine 1050 / 1050 # Bowel Movements Other: # Unmeasured Voids 2 Weight 68.8 kg 68.8 kg Patient Weight 03/26/20 06:59 Weight 68.8 kg (1) DKA (diabetic ketoacidoses) Diabetes mellitus complication detail: with coma Diabetes mellitus type: type 1 Qualified Code(s): E10.11 - Type 1 diabetes mellitus with ketoacidosis with coma
[2020-03-25] MEDS: SERTRALINE HCL 50 MG TABLET PO SCH (20:43)
[2020-03-25] MEDS: APIXABAN 5 MG TABLET PO SCH (20:43)
[2020-03-25] MEDS: CARBOHYDRATES FOR HYPOGLYCEMIA PO PRN ×2 (20:50→21:05)
[2020-03-25] MEDS ORDERED: HEPARIN DRIP~STOP ORDER ONE (21:00)
[2020-03-26] MEDS ORDERED: INSULIN ASPART 100 UNITS/ML 3 ML PEN SC ONE (02:00)
[2020-03-26 07:51] LABS: Hematocrit (blood only) 32.5 % (42-52); Hemoglobin 10.4 g/dL (14.0-18.0); Mean Corpuscular Hemoglobin 28.1 pg (25-34); Mean Corpuscular Volume 87.8 fL (80-100); Mean Platelet Volume 9.7 fL (7.4-10.4); Platelet Count 207 K/uL (130-400); RDW Coefficient of Variation 15.1 % (11.5-14.5); RDW Standard Deviation 48.8 fL (36.4-46.3); White Blood Count 5.32 K/uL (4.8-10.8)
[2020-03-26] MEDS: QUEtiapine FUMARATE 25 MG TABLET PO SCH ×3 (08:01→21:44)
[2020-03-26] MEDS: DOXYCYCLINE HYCLATE 100 MG CAP PO SCH ×2 (08:02→21:45)
[2020-03-26] MEDS: APIXABAN 5 MG TABLET PO SCH ×2 (08:02→21:45)
[2020-03-26] MEDS: ASPIRIN 81 MG CHEW PO SCH (08:02)
[2020-03-26] MEDS: LOSARTAN POTASSIUM 25 MG TAB PO SCH ×2 (08:02→21:45)
[2020-03-26] MEDS: ATORVASTATIN 20 MG TAB PO SCH (08:02)
[2020-03-26] MEDS: METOPROLOL TARTRATE 25 MG TAB PO SCH ×2 (08:02→21:46)
[2020-03-26 08:21] LABS: Creatinine Clr Calc Pharmacy 86.2 ml/min; Est GFR (African American) 109.8; Est GFR (Non-African American) 94.8; Magnesium 2.3 mg/dl (1.8-2.4); Potassium 4.1 mmol/L (3.5-5.1)
[2020-03-26 08:25] LABS: Phosphorus 3.1 mg/dl (2.5-4.9)
[2020-03-26] MEDS ORDERED: INSULIN GLARGINE SOLOSTAR 100 UNITS/ML 3 ML PEN SC SCH (09:00)
[2020-03-26] MEDS: INSULIN ASPART 100 UNITS/ML 3 ML PEN SC SCH ×5 (09:02→21:43)
[2020-03-26] MEDS: INSULIN GLARGINE SOLOSTAR 100 UNITS/ML 3 ML PEN SC SCH (09:03)
--- NOTE | 2020-03-26 10:46 | Hospitalist Progress Note ---
Date of Service March 26, 2020 Assessment & Plan (1) Unresponsive: (2) Metabolic encephalopathy: (3) DKA (diabetic ketoacidoses): (4) Metabolic acidosis: 69 y/o M with PMH insulin-dependent DM I, HTN, bipolar, dyslipidemia presented to ER for unresponsiveness. History obtained from ER physician as patient is currently sedated and intubated. It is reported that patient had been refusing taking his insulin. Upon arrival to ER patient was tachypneic and unresponsive. He was intubated. Patient with history COVID-19 requiring hospitalization 11/2019 and during that hospitalization developed paroxysmal A. fib and was started on metoprolol tartrate and Eliquis. Initial pH was 7.02, now 7.7 (likely from bicarb amps initially after admission and correction of DKA) Anion GAP 32 now 11 BG was 961 Beta hydroxybutyrate was 74.17. Was started on insulin drip for DKA, now transitioned to subcut Acidosis resolved Extubated on 03/23/20. Currently on room air Downgraded from ICU. Aspiration precautions, some difficulty with swallowing meds noted, speech eval ordered, now swallowing seems to be much improved Procal was 1.38 on admission trended down to 0.82 CT Ab/P show basilar opacities suggestive of atelectasis. Possible Aspiration Blood culture growing GPC in one bottle (Micrococcus), likely contaminant. MRSA serology negative Will follow up final result Will continue empiric antibiotics, zosyn stopped 03/24 by ICU team and doxycycline was started for next 3 days Leukocytosis resolved (5) Acute hyperkalemia: Initial K: 7.5 on admission Trended down with IVF and insulin therapy. Required repletion Normalized Monitor and manage appropriately (6) CHIVO (acute kidney injury): BUN 61, Cr: 3.17 Repeat Cr: 2.69 on admission Secondary to DKA Resolved Cr now normalized 0.85 Monitor renal functions, avoid nephrotoxic agents Hypomag, Hypophos, Hypokal. - from poor oral intake -replace and monitor (7) Elevated troponin: Trop was 0.066 on admission peaked at 13.7 trended down to 5.5 NSTEMI, deman ischemia in the setting of severe metabolic dearrengment Continued heparin drip, now switched to Eliquis Echo did not show any wall motion abnormalities Cardiology following (8) Paroxysmal atrial fibrillation with RVR: H/O PAF during hospitalization in 11/2019 On Eliquis, metoprolol tartrate at home (9) Hypertension: On losartan at home, dose now increased to 25 bid, plan to start 50 daily tomorrow 03/27 resumed losartan after resolution of CHIVO (10) Bipolar 1 disorder: On quetiapine, sertraline at home Psychiatry also consulted, given bipolar d/o and medication noncompliance Dispo - downgrade from ICU, pt resides at [facility], per PT needs rehab, CM aware Admission and Anticipated Discharge Date Admission Date: March 21, 2020 Subjective Pt is lying in bed in [facility]. Says he had breakfast and lunch and ate well. Per nursing staff no current swallowing concerns, pt reportedly ate most of his meals. Pt denies fever, chills, chest pain, shortness of breath, abd. pain, nausea or vomiting. Says he's been having normal BMs. He can tell me his name and current year. With help he can say which hospital he's at. However he then tells me that his brother is" going to pick him up and take him home but currently his brother is at the bar." He is more awake and talkative today. Per PT, recommend rehab, CM aware. Review of Systems Review of Systems: All systems reviewed & are unremarkable except as noted in HPI & below Constitutional: no fever and no chills Respiratory: no cough and no dyspnea Cardiovascular: no chest pain and no palpitations Gastrointestinal: no abdominal pain, no nausea and no vomiting Physical Exam Physical Exam: Constitutional: slender male in no acute distress, breathing on RA Eyes: PERRL, conjunctivae normal, anicteric sclerae ENMT: external ear and nose normal, oropharynx normal Respiratory: normal respiratory effort, CTAB, breathing comfortably on room air Cardiovascular: RRR, no murmur, no edema Gastrointestinal (Abdomen): normal bowel sounds, soft, nontender to palpation Neurologic: PERRL, EOMI, no face palsy, no dysarthria, moves extremities spontaneously Psychiatric: Orientation: alert Oriented to person only, answers some questions appropriately, confused Results & Data Results & Data ([facility]) Vital Signs (Past 12 Hours) Vital Signs Temp Pulse Resp BP Pulse Ox 03/26/20 07:53 36.5 C 69 18 146/68 H 95 03/26/20 00:22 36.5 C 66 18 139/49 L 97 Laboratory Results 03/26/20 03/26/20 03/26/20 Range/Units 07:26 07:26 07:23 WBC 5.32 (4.8-10.8) K/uL RBC 3.70 L (4.7-6.1) M/uL Hgb 10.4 L (14.0-18.0) g/dL Hct 32.5 L (42-52) % MCV 87.8 (80-100) fL MCH 28.1 (25-34) pg MCHC 32.0 (32-36) g/dL RDW Std Deviation 48.8 H (36.4-46.3) fL RDW Coeff of Jace 15.1 H (11.5-14.5) % Plt Count 207 (130-400) K/uL MPV 9.7 (7.4-10.4) fL APTT (21.0-31.0) Seconds PTT Ratio Sodium 141 (136-145) mmol/L Potassium 4.1 (3.5-5.1) mmol/L Chloride 109 H (98-107) mmol/L Carbon Dioxide 27 (21-32) mmol/L Anion Gap 5.0 (3-11) BUN 7 (7-18) mg/dl Creatinine 0.74 (0.6-1.4) mg/dl Est Cr Clr Drug Dosing 86.2 ml/min Est GFR ( Amer) 109.8 Est GFR (Non-Af Amer) 94.8 BUN/Creatinine Ratio 9.0 L (10-20) Glucose 142 H (70-99) mg/dl POC Glucose 145 H (70-99) mg/dl Calcium 9.0 (8.5-10.1) mg/dl Phosphorus 3.1 (2.5-4.9) mg/dl Magnesium 2.3 (1.8-2.4) mg/dl 03/26/20 03/25/20 03/25/20 Range/Units 02:04 21:23 21:04 WBC (4.8-10.8) K/uL RBC (4.7-6.1) M/uL Hgb (14.0-18.0) g/dL Hct (42-52) % MCV (80-100) fL MCH (25-34) pg MCHC (32-36) g/dL RDW Std Deviation (36.4-46.3) fL RDW Coeff of Jace (11.5-14.5) % Plt Count (130-400) K/uL MPV (7.4-10.4) fL APTT (21.0-31.0) Seconds PTT Ratio Sodium (136-145) mmol/L Potassium (3.5-5.1) mmol/L Chloride (98-107) mmol/L Carbon Dioxide (21-32) mmol/L Anion Gap (3-11) BUN (7-18) mg/dl Creatinine (0.6-1.4) mg/dl Est Cr Clr Drug Dosing ml/min Est GFR ( Amer) Est GFR (Non-Af Amer) BUN/Creatinine Ratio (-) Glucose (70-99) mg/dl POC Glucose 91 75 57 L* (70-99) mg/dl Calcium (8.5-10.1) mg/dl Phosphorus (2.5-4.9) mg/dl Magnesium (1.8-2.4) mg/dl 03/25/20 03/25/20 03/25/20 Range/Units 20:47 20:46 16:32 WBC (4.8-10.8) K/uL RBC (4.7-6.1) M/uL Hgb (14.0-18.0) g/dL Hct (42-52) % MCV (80-100) fL MCH (25-34) pg MCHC (32-36) g/dL RDW Std Deviation (36.4-46.3) fL RDW Coeff of Jace (11.5-14.5) % Plt Count (130-400) K/uL MPV (7.4-10.4) fL APTT (21.0-31.0) Seconds PTT Ratio Sodium (136-145) mmol/L Potassium (3.5-5.1) mmol/L Chloride (98-107) mmol/L Carbon Dioxide (21-32) mmol/L Anion Gap (3-11) BUN (7-18) mg/dl Creatinine (0.6-1.4) mg/dl Est Cr Clr Drug Dosing ml/min Est GFR ( Amer) Est GFR (Non-Af Amer) BUN/Creatinine Ratio (10-20) Glucose (70-99) mg/dl POC Glucose 62 L* 60 L* 100 H (70-99) mg/dl Calcium (8.5-10.1) mg/dl Phosphorus (2.5-4.9) mg/dl Magnesium (1.8-2.4) mg/dl 03/25/20 03/25/20 Range/Units 14:56 11:30 WBC (4.8-10.8) K/uL RBC (4.7-6.1) M/uL Hgb (14.0-18.0) g/dL Hct (42-52) % MCV (80-100) fL MCH (25-34) pg MCHC (32-36) g/dL RDW Std Deviation (36.4-46.3) fL RDW Coeff of Jace (11.5-14.5) % Plt Count (130-400) K/uL MPV (7.4-10.4) fL APTT 64.8 H* (21.0-31.0) Seconds PTT Ratio 2.3 Sodium (136-145) mmol/L Potassium (3.5-5.1) mmol/L Chloride (98-107) mmol/L Carbon Dioxide (21-32) mmol/L Anion Gap (3-11) BUN (7-18) mg/dl Creatinine (0.6-1.4) mg/dl Est Cr Clr Drug Dosing ml/min Est GFR ( Amer) Est GFR (Non-Af Amer) BUN/Creatinine Ratio (10-20) Glucose (70-99) mg/dl POC Glucose 188 H (70-99) mg/dl Calcium (8.5-10.1) mg/dl Phosphorus (2.5-4.9) mg/dl Magnesium (1.8-2.4) mg/dl Medications Administered Current Inpatient Medications Apixaban (Apixaban 5 Mg Tablet) 5 mg PO BID AYDEN Stop: 04/24/20 20:59 Last Admin: 03/26/20 08:02 Dose: 5 mg Documented by: Aspirin (Aspirin 81 Mg Chew) 81 mg PO QA AYDEN Stop: 04/24/20 08:59 Last Admin: 03/26/20 08:02 Dose: 81 mg Documented by: Atorvastatin Calcium ([facility]atin 20 Mg Tab) [facility]: 04/22/20 14:29 Last Admin: 03/26/20 08:02 Dose: 20 mg Documented by: Dextrose (Dextrose 50% 50 Ml Syringe) 25 - 50 ml IV UD PRN; Protocol PRN Reason: Hypoglycemia Protocol Stop: 04/20/20 16:59 Doxycycline Hyclate (Doxycycline Hyclate 100 Mg Cap) 100 mg PO BID [facility] Stop: 03/27/20 08:59 Last Admin: 03/26/20 08:02 Dose: 100 mg Documented by: Glucagon (Glucagon For Inj 1 Mg Vial) 1 mg IM UD PRN; Protocol PRN Reason: Hypoglycemia Protocol Stop: 04/20/20 16:59 Glucose (Glucose 40% Gel 15 Gm Tube) 15 - 30 gm PO UD PRN; Protocol PRN Reason: Hypoglycemia Protocol Stop: 04/20/20 16:59 Glucose (Glucose 10 Tabs/Tube) 4 - 8 tabs PO UD PRN; Protocol PRN Reason: Hypoglycemia Protocol Stop: 04/20/20 16:59 Pantoprazole Sodium 40 mg/ (Syringe) 10 mls @ 5 mls/min IV DAILY@1100 [facility] Stop: 04/21/20 10:59 Last Admin: 03/25/20 11:56 Dose: 5 mls/min Documented by: Insulin Aspart (Insulin Aspart 100 Units/Ml 3 Ml Pen) 0 units [facility] Stop: 04/24/20 16:29 Last Admin: 03/26/20 09:02 Dose: 2 units Documented by: Insulin Glargine (Insulin Glargine Solostar 100 Units/Ml 3 Ml Pen) 17 units [facility]; Protocol Stop: 04/25/20 08:59 Last Admin: 03/26/20 09:03 Dose: 17 units Documented by: Losartan Potassium (Losartan Potassium 25 Mg Tab) 25 mg PO BID [facility] Stop: 04/24/20 20:59 Last Admin: 03/26/20 08:02 Dose: 25 mg Documented by: Metoprolol Tartrate (Metoprolol Tartrate 25 Mg Tab) 25 mg PO BID [facility] Stop: 04/22/20 20:59 Last Admin: 03/26/20 08:02 Dose: 25 mg Documented by: Metoprolol Tartrate (Metoprolol Tartrate 1 Mg/Ml Vial) 2.5 mg IV Q4H PRN PRN Reason: SBP greater than 150 Stop: 04/22/20 14:08 Miscellaneous (Carbohydrates For Hypoglycemia ) 15 - 30 gm PO UD PRN PRN Reason: Hypoglycemia Treatment Stop: 04/20/20 16:59 Last Admin: 03/25/20 21:05 Dose: 15 gm Documented by: Miscellaneous Information (Pharmacy Glycemic Mgmt Consult) 1 ea N/A UD PRN PRN Reason: Consult Stop: 04/21/20 09:14 Quetiapine Fumarate (Quetiapine Fumarate 25 Mg Tablet) 25 mg PO [facility] Stop: 04/23/20 20:59 Last Admin: 03/25/20 20:43 Dose: 25 mg Documented by: Quetiapine Fumarate (Quetiapine Fumarate 25 Mg Tablet) 12.5 mg PO BID@0900,1400 [facility] Stop: 04/23/20 13:59 Last Admin: 03/26/20 08:01 Dose: 12.5 mg Documented by: Sertraline HCl (Sertraline Hcl 50 Mg Tablet) 50 mg PO [facility] Stop: 04/23/20 20:59 Last Admin: 03/25/20 20:43 Dose: 50 mg Documented by: (1) DKA (diabetic ketoacidoses) Diabetes mellitus complication detail: with coma Diabetes mellitus type: type 1 Qualified Code(s): E10.11 - Type 1 diabetes mellitus with ketoacidosis with coma
--- NOTE | 2020-03-26 12:15 | Pharmacy Report ---
Pharmacy Glycemic Short Note 2 - Date of Service March 26, 2020 - Glycemic Short BSG Results (Last 24 hours): 03/25/20 03/25/20 03/25/20 16:32 20:46 20:47 Glucose POC Glucose 100 H 60 L* 62 L* 03/25/20 03/25/20 03/26/20 21:04 21:23 02:04 Glucose POC Glucose 57 L* 75 91 03/26/20 03/26/20 03/26/20 07:23 07:26 11:25 Glucose 142 H POC Glucose 145 H 177 H OUTPATIENT ANTIDIABETIC REGIMEN: * Lantus 18 units Q PM * Novolog 10 units BID w/ meals * A1c = 10.9% 03/22/20 ASSESSMENT: 03/26/20: * Pt with LOW BSG last night at bedtime. May have been d/t all dextrose IVF dc (heparin infusion and D51/2NS) coupled with too aggressive NovoLog parameters for evening time * Pt BSGs tend to trend downwards throughout the day. Most likely needs differing CF/CR for breakfast/lunch vs dinner/hs. Will adjust accordingly * BSGs react to very small changes in insulin dosing. Will reduce basal insulin by one unit to prevent rebound hyperglycemia tomorrow. 03/25 * Glycemic control acceptable, although only because patient's BSG's are historically difficult to control well. No hypoglycemic episodes noted, although patient is still experiencing his usual increased BSG's mid-day (see 03/24 below). * Patient remains on [id number] IVF @ 50 mL/hr for prior NPO status. Patient now ordered a diet. Discussed w Dr. Cobb - plan is to keep it until PO intake adequate. At breakfast today, he only had three bites of eggs and one bite of pudding for breakfast (per MEGHANA Velez). But po intake improved at lunch (all of mashed potatoes and pudding) therefore [id number] IVF was stopped * Will loosen correction factor * Will add scale in for AM Lantus * Will change Novolog to ACHS, with one overnight check 03/24 * Glycemic control acceptable for this patient over last 24 hrs. Although only ~50% of his BSGs have been at goal, this is better than we usually achieve during his admission. * He remains NPO, but dextrose containing IVFs continue to infusion. His BSG pattern suggests that his Lantus does not provide a full 24 hr duration, and this his basal insulin needs decrease overnight (as we saw on prior admissions). Normally I would give Lantus BID in such cases, however I worry that doing so will result in poor control as he often tends to refuse insulin doses. Will continue to trial once daily Lantus dosed in the AM. * Novolog correction may need increased during awake hours, but decreased HS and overnight. I believe a small increase in correction will be tolerated well while receiving continuous dextrose however. Will require changes when dextrose infusion stopped. 03/23 * Type 1 diabetic admitted with severe DKA on 03/21 due to non-compliance with insulin regimen, CHIVO and respiratory failure requiring intubation * He was managed with IV fluid resuscitation, IV insulin drip and e-lyte replacement * Yesterday, patient's AG acidosis had resolved and transition to SQ regimen initiated. Insulin drip d/c'd overnight. * This AM patient has been extubated. He remains NPO at this time however, but dextrose containing IVF's continue * This patient is known to the Glycemic Control Service from his recent hospitalization. During last admission he frequently refused insulin doses leading to wide swings in BSGs. Many times nursing staff needed to offer his basal insulin dose more than once to prevent severe hyperglycemic episodes in a type 1 diabetic. PLAN FOR INPATIENT GLYCEMIC CONTROL: * Basal insulin - decrease * Lantus 17 units SQ qAM * Bolus insulin - loosen CF/CR for dinner and HS * NovoLog per scale ACHS with one overnight check * Goal Range: Low 110 mg/dL - High 140 mg/dL * BREAKFAST & LUNCH PARAMETERS * Correction Factor: 30 mg/dL/unit * Nutritional / Prandial insulin per carb ratio of 1 unit per 10 grams CHO consumed * DINNER & HS PARAMETERS * Correction Factor: 40 mg/dL/unit * Nutritional / Prandial insulin per carb ratio of 1 unit per 13 grams CHO consumed
[2020-03-26] MEDS: PANTOprazole 40 MG in SYRINGE 0 ML IV SCH (12:45)
--- NOTE | 2020-03-26 15:30 | Cardiology Progress Note ---
Date of Service March 26, 2020 Assessment & Plan (1) Elevated troponin: Demand ischemia in the setting of profound metabolic derangement, DKA, with hyperdynamic LVEF no regional wall motion abnormalities echocardiogram performed peak troponin elevation. Is reportedly swallowing his pills with pudding. Continue aspirin, metoprolol, atorvastatin, losartan. Blood pressure improved with recent increase in losartan from 25 mg daily to 25 mg twice daily. We will transition him to 50 mg of losartan daily tomorrow 03/27/2020 (2) DKA (diabetic ketoacidoses): Uncertain of what the inciting event was, it is resolved at present. From a significant acidosis. (3) Cognitive disorder: Patient seems to be back to his previous mental status. (4) Paroxysmal atrial fibrillation with RVR: Previously diagnosed with paroxysmal atrial fibrillation during his prostate in December, with COVID-19 pneumonia. Continue metoprolol. Acute kidney injury noted on presentation, with creatinine 3 mg/dL, now normalized. Transition from IV heparin, back to Eliquis 5 mg twice daily. Although of course with his history of recent acute kidney injury, use of Eliquis must be performed with a great deal of caution, I still think it is likely most appropriate agent future ease of administration at the alf and to avoid labile INR measurements which I would anticipate would occur on coumadin. Admission and Anticipated Discharge Date Admission Date: March 21, 2020 Subjective Patient seen in follow-up. Denies any cardiac complaints. Answers questions with simple answers, yes and no. Monitor reveals sinus rhythm in the 60 to 70 bpm range. No atrial fibrillation observed. Review of Systems Review of Systems: Unobtainable due to cognitive status Physical Exam Physical Exam: Temp Pulse Resp BP Pulse Ox 36.8 C 74 18 140/71 96 03/26/20 12:02 03/26/20 12:02 03/26/20 12:02 03/26/20 12:02 03/26/20 12:02 Constitutional: WD/WN, vitals as above Respiratory: normal respiratory effort, lungs clear to auscultation Cardiovascular: RRR, no murmur, no edema Gastrointestinal (Abdomen): normal bowel sounds, soft, nontender, no hepatosplenomegaly Musculoskeletal: Remote left below the knee amputation Neurologic: Follows commands Results & Data ([facility]) Vital Signs (Past 12 Hours) Vital Signs Temp Pulse Resp BP Pulse Ox 03/26/20 12:02 36.8 C 74 18 140/71 96 03/26/20 07:53 36.5 C 69 18 146/68 H 95 Laboratory Results Coagulation 03/25/20 Range/Units 14:56 APTT 64.8 H* (21.0-31.0) Seconds CBC 03/26/20 Range/Units 07:26 WBC 5.32 (4.8-10.8) K/uL RBC 3.70 L (4.7-6.1) M/uL Hgb 10.4 L (14.0-18.0) g/dL Hct 32.5 L (42-52) % Plt Count 207 (130-400) K/uL Comprehensive Metabolic Panel 03/26/20 Range/Units 07:26 Sodium 141 (136-145) mmol/L Potassium 4.1 (3.5-5.1) mmol/L Chloride 109 H (98-107) mmol/L Carbon Dioxide 27 (21-32) mmol/L BUN 7 (7-18) mg/dl Creatinine 0.74 (0.6-1.4) mg/dl Glucose 142 H (70-99) mg/dl Calcium 9.0 (8.5-10.1) mg/dl Intake and Output 03/26/20 03/26/20 03/26/20 06:59 14:59 22:59 Intake Total 340 / 1703.333 140 / 140 Output Total 400 / 400 Balance 340 / 152.333 -260 / -260 Intake: Oral 340 / 615 140 / 140 Output: Urine 400 / 400 Other: # Unmeasured Voids 1 # Urine Diapers 1 Weight 68 kg 68 kg Patient Weight 03/27/20 06:59 Weight 68 kg (1) DKA (diabetic ketoacidoses) Diabetes mellitus complication detail: with coma Diabetes mellitus type: type 1 Qualified Code(s): E10.11 - Type 1 diabetes mellitus with ketoacidosis with coma
[2020-03-26] MEDS: SERTRALINE HCL 50 MG TABLET PO SCH (21:45)
[2020-03-27] MEDS: INSULIN ASPART 100 UNITS/ML 3 ML PEN SC SCH ×4 (08:40→22:30)
[2020-03-27] MEDS: METOPROLOL TARTRATE 25 MG TAB PO SCH (08:40)
[2020-03-27] MEDS: ATORVASTATIN 20 MG TAB PO SCH (08:41)
[2020-03-27] MEDS: PANTOprazole 40 MG TAB PO SCH (08:41)
[2020-03-27] MEDS: LOSARTAN POTASSIUM 50 MG TAB PO SCH (08:41)
[2020-03-27] MEDS: APIXABAN 5 MG TABLET PO SCH (08:41)
[2020-03-27] MEDS: INSULIN GLARGINE SOLOSTAR 100 UNITS/ML 3 ML PEN SC SCH (08:42)
[2020-03-27] MEDS: QUEtiapine FUMARATE 25 MG TABLET PO SCH ×2 (08:43→14:31)
[2020-03-27] MEDS: ASPIRIN 81 MG CHEW PO SCH (08:44)
--- NOTE | 2020-03-27 09:18 | Hospitalist Progress Note ---
Date of Service March 27, 2020 Assessment & Plan (1) Unresponsive: (2) Metabolic encephalopathy: (3) DKA (diabetic ketoacidoses): (4) Metabolic acidosis: 69 y/o M with PMH insulin-dependent DM I, HTN, bipolar, dyslipidemia presented to ER for unresponsiveness. History obtained from ER physician as patient is currently sedated and intubated. It is reported that patient had been refusing taking his insulin. Upon arrival to ER patient was tachypneic and unresponsive. He was intubated. Patient with history COVID-19 requiring hospitalization 11/2019 and during that hospitalization developed paroxysmal A. fib and was started on metoprolol tartrate and Eliquis. Initial pH was 7.02, now 7.7 (likely from bicarb amps initially after admission and correction of DKA) Anion GAP 32 now 11 BG was 961 Beta hydroxybutyrate was 74.17. Was started on insulin drip for DKA, now transitioned to subcut Acidosis resolved Extubated on 03/23/20. Currently on room air Downgraded from ICU. Aspiration precautions, some difficulty with swallowing meds noted, speech eval ordered, now swallowing seems to be much improved Procal was 1.38 on admission trended down to 0.82 CT Ab/P show basilar opacities suggestive of atelectasis. Possible Aspiration Blood culture growing GPC in one bottle (Micrococcus), likely contaminant. MRSA serology negative Will follow up final result Will continue empiric antibiotics, zosyn stopped 03/24 by ICU team and doxycycline was started for next 3 days Leukocytosis resolved (5) Acute hyperkalemia: Initial K: 7.5 on admission Trended down with IVF and insulin therapy. Required repletion Normalized Monitor and manage appropriately (6) CHIVO (acute kidney injury): BUN 61, Cr: 3.17 Repeat Cr: 2.69 on admission Secondary to DKA Resolved Cr now normalized 0.85 Monitor renal functions, avoid nephrotoxic agents Hypomag, Hypophos, Hypokal. - from poor oral intake -replace and monitor (7) Elevated troponin: Trop was 0.066 on admission peaked at 13.7 trended down to 5.5 NSTEMI, deman ischemia in the setting of severe metabolic dearrengment Continued heparin drip, now switched to Eliquis Echo did not show any wall motion abnormalities Cardiology following (8) Paroxysmal atrial fibrillation with RVR: H/O PAF during hospitalization in 11/2019 On Eliquis, metoprolol tartrate at home (9) Hypertension: On losartan at home, dose now increased to 25 bid, plan to start 50 daily today 03/27 resumed losartan after resolution of CHIVO (10) Bipolar 1 disorder: On quetiapine, sertraline at home Psychiatry also consulted, given bipolar d/o and medication noncompliance Dispo - downgraded from ICU to PCU, now to Med/Surg, pt resides at [facility], per PT needs rehab, CM aware Admission and Anticipated Discharge Date Admission Date: March 21, 2020 Subjective Pt is sitting up in bed in [facility]. He has been eating well and per nursing staff no current swallowing concerns. Pt denies fever, chills, chest pain, shortness of breath, abd. pain, nausea or vomiting. He can tell me his name and current year. He cannot tell me where he is. Insists that he is in [place]. He also mentions his brother. I called Randa and asked about his baseline mental status, patient is currently at the baseline, he often says that his brother is coming to pick him up. Also per nursing staff who met patient's family today, patient's family confirms mental status to be at baseline. Per PT, recommend rehab, CM aware. Review of Systems Review of Systems: All systems reviewed & are unremarkable except as noted in HPI & below Constitutional: no fever and no chills Respiratory: no cough and no dyspnea Cardiovascular: no chest pain and no palpitations Gastrointestinal: no abdominal pain and no vomiting Physical Exam Physical Exam: Constitutional: slender male in no acute distress, breathing comfortably on RA Eyes: PERRL, conjunctivae normal, anicteric sclerae ENMT: external ear and nose normal, oropharynx normal Respiratory: normal respiratory effort, CTAB, breathing comfortably on room air Cardiovascular: RRR, no murmur, no edema Gastrointestinal (Abdomen): normal bowel sounds, soft, nontender to palpation Neurologic: PERRL, EOMI, no face palsy, no dysarthria, moves extremities spontaneously Psychiatric: Orientation: alert and oriented to person and time, answers some questions appropriately, confused about where he is, this seems to be baseline Results & Data Results & Data ([facility]) Vital Signs (Past 12 Hours) Vital Signs Temp Pulse Pulse Resp BP Pulse Ox 03/27/20 08:00 61 03/27/20 06:28 36.7 C 60 18 157/55 H 97 03/26/20 23:51 37.2 C 71 18 136/48 L 94 03/26/20 23:13 71 Laboratory Results 03/27/20 03/27/20 03/27/20 Range/Units 11:27 09:23 09:23 WBC 6.12 (4.8-10.8) K/uL RBC 3.65 L (4.7-6.1) M/uL Hgb 10.7 L (14.0-18.0) g/dL Hct 32.2 L (42-52) % MCV 88.2 (80-100) fL MCH 29.3 (25-34) pg MCHC 33.2 (32-36) g/dL RDW Std Deviation 47.9 H (36.4-46.3) fL RDW Coeff of Jace 14.8 H (11.5-14.5) % Plt Count 263 (130-400) K/uL MPV 9.7 (7.4-10.4) fL Sodium 138 (136-145) mmol/L Potassium 4.6 (3.5-5.1) mmol/L Chloride 105 (98-107) mmol/L Carbon Dioxide 27 (21-32) mmol/L Anion Gap 6.0 (3-11) BUN 11 D (7-18) mg/dl Creatinine 0.87 (0.6-1.4) mg/dl Est Cr Clr Drug Dosing 73.3 ml/min Est GFR ( Amer) 102.8 Est GFR (Non-Af Amer) 88.7 BUN/Creatinine Ratio 12.4 (10-20) Glucose 251 H (70-99) mg/dl POC Glucose 255 H (70-99) mg/dl Calcium 9.2 (8.5-10.1) mg/dl 03/27/20 03/26/20 Range/Units 07:07 21:41 WBC (4.8-10.8) K/uL RBC (4.7-6.1) M/uL Hgb (14.0-18.0) g/dL Hct (42-52) % MCV (80-100) fL MCH (25-34) pg MCHC (32-36) g/dL RDW Std Deviation (36.4-46.3) fL RDW Coeff of Jace (11.5-14.5) % Plt Count (130-400) K/uL MPV (7.4-10.4) fL Sodium (136-145) mmol/L Potassium (3.5-5.1) mmol/L Chloride (98-107) mmol/L Carbon Dioxide (21-32) mmol/L Anion Gap (3-11) BUN (7-18) mg/dl Creatinine (0.6-1.4) mg/dl Est Cr Clr Drug Dosing ml/min Est GFR ( Amer) Est GFR (Non-Af Amer) BUN/Creatinine Ratio (10-20) Glucose (70-99) mg/dl POC Glucose 179 H 159 H (70-99) mg/dl Calcium (8.5-10.1) mg/dl Medications Administered Current Inpatient Medications Apixaban (Apixaban 5 Mg Tablet) 5 mg PO BID [facility] Stop: 04/24/20 20:59 Last Admin: 03/27/20 08:41 Dose: 5 mg Documented by: Aspirin (Aspirin 81 Mg Chew) [facility] Stop: 04/24/20 08:59 Last Admin: 03/27/20 08:44 Dose: 81 mg Documented by: Atorvastatin Calcium (Atorvastatin 20 Mg Tab) 20 mg PO QAM [facility] Stop: 04/22/20 14:29 Last Admin: 03/27/20 08:41 Dose: 20 mg Documented by: Dextrose (Dextrose 50% 50 Ml Syringe) 25 - 50 ml IV UD PRN; Protocol PRN Reason: Hypoglycemia Protocol Stop: 04/20/20 16:59 Glucagon (Glucagon For Inj 1 Mg Vial) 1 mg IM UD PRN; Protocol PRN Reason: Hypoglycemia Protocol Stop: 04/20/20 16:59 Glucose (Glucose 40% Gel 15 Gm Tube) 15 - 30 gm PO UD PRN; Protocol PRN Reason: Hypoglycemia Protocol Stop: 04/20/20 16:59 Glucose (Glucose 10 Tabs/Tube) 4 - 8 tabs PO UD PRN; Protocol PRN Reason: Hypoglycemia Protocol Stop: 04/20/20 16:59 Insulin Aspart (Insulin Aspart 100 Units/Ml 3 Ml Pen) 0 units SC BID@1630,2100 [facility] Stop: 04/25/20 16:29 Last Admin: 03/26/20 21:43 Dose: 1 units Documented by: Insulin Aspart (Insulin Aspart 100 Units/Ml 3 Ml Pen) 0 units SC BID@0730,1130 [facility] Stop: 04/25/20 12:24 Last Admin: 03/27/20 08:40 Dose: 5 units Documented by: Insulin Glargine (Insulin Glargine Solostar 100 Units/Ml 3 Ml Pen) [address] [facility]; Protocol Stop: 04/25/20 08:59 Last Admin: 03/27/20 08:42 Dose: 17 units Documented by: Losartan Potassium (Losartan Potassium 50 Mg Tab) 50 mg PO QAM [facility] Stop: 04/26/20 08:59 Last Admin: 03/27/20 08:41 Dose: 50 mg Documented by: Metoprolol Tartrate (Metoprolol Tartrate 25 Mg Tab) 25 mg PO BID [facility] Stop: 04/22/20 20:59 Last Admin: 03/27/20 08:40 Dose: 25 mg Documented by: Metoprolol Tartrate (Metoprolol Tartrate 1 Mg/Ml Vial) 2.5 mg IV Q4H PRN PRN Reason: SBP greater than 150 Stop: 04/22/20 14:08 Miscellaneous (Carbohydrates For Hypoglycemia ) 15 - 30 gm PO UD PRN PRN Reason: Hypoglycemia Treatment Stop: 04/20/20 16:59 Last Admin: 03/25/20 21:05 Dose: 15 gm Documented by: Miscellaneous Information (Pharmacy Glycemic Mgmt Consult) 1 ea N/A UD PRN PRN Reason: Consult Stop: 04/21/20 09:14 Pantoprazole Sodium (Pantoprazole 40 Mg Tab) 40 mg PO DAILY [facility] Stop: 04/26/20 08:59 Last Admin: 03/27/20 08:41 Dose: 40 mg Documented by: Quetiapine Fumarate (Quetiapine Fumarate 25 Mg Tablet) 25 mg PO HS [facility] Stop: 04/23/20 20:59 Last Admin: 03/26/20 21:44 Dose: 25 mg Documented by: Quetiapine Fumarate (Quetiapine Fumarate 25 Mg Tablet) 12.5 mg PO BID@0900,1400 [facility] Stop: 04/23/20 13:59 Last Admin: 03/27/20 08:43 Dose: 12.5 mg Documented by: Sertraline HCl (Sertraline Hcl 50 Mg Tablet) 50 mg PO HS [facility] Stop: 04/23/20 20:59 Last Admin: 03/26/20 21:45 Dose: 50 mg Documented by: (1) DKA (diabetic ketoacidoses) Diabetes mellitus complication detail: with coma Diabetes mellitus type: type 1 Qualified Code(s): E10.11 - Type 1 diabetes mellitus with ketoacidosis with coma
[2020-03-27 09:43] LABS: Hematocrit (blood only) 32.2 % (42-52); Hemoglobin 10.7 g/dL (14.0-18.0); Mean Corpuscular Hemoglobin 29.3 pg (25-34); Mean Corpuscular Hgb Conc 33.2 g/dL (32-36); Mean Corpuscular Volume 88.2 fL (80-100); Mean Platelet Volume 9.7 fL (7.4-10.4); Platelet Count 263 K/uL (130-400); RDW Coefficient of Variation 14.8 % (11.5-14.5); RDW Standard Deviation 47.9 fL (36.4-46.3); Red Blood Count 3.65 M/uL (4.7-6.1); White Blood Count 6.12 K/uL (4.8-10.8)
[2020-03-27 10:11] LABS: BUN Creatinine Ratio 12.4 (10-20); Calcium 9.2 mg/dl (8.5-10.1); Creatinine Clr Calc Pharmacy 73.3 ml/min; Est GFR (African American) 102.8; Est GFR (Non-African American) 88.7; Potassium 4.6 mmol/L (3.5-5.1)
[2020-03-28] MEDS: APIXABAN 5 MG TABLET PO SCH ×3 (00:56→20:11)
[2020-03-28] MEDS: QUEtiapine FUMARATE 25 MG TABLET PO SCH ×4 (00:57→20:11)
[2020-03-28] MEDS: SERTRALINE HCL 50 MG TABLET PO SCH ×2 (00:57→20:11)
[2020-03-28] MEDS: METOPROLOL TARTRATE 25 MG TAB PO SCH ×3 (01:03→20:11)
[2020-03-28 06:57] LABS: BUN Creatinine Ratio 16.3 (10-20); Calcium 8.8 mg/dl (8.5-10.1); Creatinine Clr Calc Pharmacy 71.7 ml/min; Est GFR (African American) 101.8; Est GFR (Non-African American) 87.9; Potassium 4.6 mmol/L (3.5-5.1)
[2020-03-28] MEDS: ASPIRIN 81 MG CHEW PO SCH (08:05)
[2020-03-28] MEDS: ATORVASTATIN 20 MG TAB PO SCH (08:05)
[2020-03-28] MEDS: LOSARTAN POTASSIUM 50 MG TAB PO SCH (08:06)
[2020-03-28] MEDS: PANTOprazole 40 MG TAB PO SCH (08:06)
[2020-03-28] MEDS: INSULIN GLARGINE SOLOSTAR 100 UNITS/ML 3 ML PEN SC SCH (08:55)
[2020-03-28] MEDS: INSULIN ASPART 100 UNITS/ML 3 ML PEN SC SCH ×5 (08:57→20:13)
--- NOTE | 2020-03-28 10:18 | Hospitalist Progress Note ---
Date of Service March 28, 2020 Assessment & Plan (1) Unresponsive: (2) Metabolic encephalopathy: (3) DKA (diabetic ketoacidoses): (4) Metabolic acidosis: 69 y/o M with PMH insulin-dependent DM I, HTN, bipolar, dyslipidemia presented to ER for unresponsiveness. History obtained from ER physician as patient is currently sedated and intubated. It is reported that patient had been refusing taking his insulin. Upon arrival to ER patient was tachypneic and unresponsive. He was intubated. Patient with history COVID-19 requiring hospitalization 11/2019 and during that hospitalization developed paroxysmal A. fib and was started on metoprolol tartrate and Eliquis. Initial pH was 7.02, now 7.7 (likely from bicarb amps initially after admission and correction of DKA) Anion GAP 32 now 11 BG was 961 Beta hydroxybutyrate was 74.17. Was started on insulin drip for DKA, now transitioned to subcut Acidosis resolved Extubated on 03/23/20. Currently on room air Downgraded from ICU. Aspiration precautions, some difficulty with swallowing meds noted, speech eval ordered, now swallowing seems to be much improved Procal was 1.38 on admission trended down to 0.82 CT Ab/P show basilar opacities suggestive of atelectasis. Possible Aspiration Blood culture growing GPC in one bottle (Micrococcus), likely contaminant. MRSA serology negative Repeat blood cultures negative Received IV empiric antibiotics, zosyn, stopped 03/24 by ICU team and doxycycline was started for next 3 days Leukocytosis resolved (5) Acute hyperkalemia: Initial K: 7.5 on admission Trended down with IVF and insulin therapy. Required repletion Normalized Monitor and manage appropriately (6) CHIVO (acute kidney injury): BUN 61, Cr: 3.17 Repeat Cr: 2.69 on admission Secondary to DKA Resolved Cr now normalized 0.85 Monitor renal functions, avoid nephrotoxic agents Hypomag, Hypophos, Hypokal. - from poor oral intake - replace and monitor (7) Elevated troponin: Trop was 0.066 on admission peaked at 13.7 trended down to 5.5 NSTEMI, deman ischemia in the setting of severe metabolic dearrengment Continued heparin drip, now switched to Eliquis Echo did not show any wall motion abnormalities Cardiology following (8) Paroxysmal atrial fibrillation with RVR: H/O PAF during hospitalization in 11/2019 On Eliquis, metoprolol tartrate at home (9) Hypertension: On losartan at home, dose now increased to 25 bid, plan to start 50 daily 03/27 resumed losartan after resolution of CHIVO (10) Bipolar 1 disorder: On quetiapine, sertraline at home Psychiatry also consulted, given bipolar d/o and medication noncompliance Dispo - downgraded from ICU to PCU, now to Med/Surg, pt resides at [facility], per PT needs rehab, CM aware Admission and Anticipated Discharge Date Admission Date: March 21, 2020 Subjective Pt is sitting up in bed in [facility]. He is eating lunch. Per nursing staff no current swallowing concerns. Pt denies fever, chills, chest pain, shortness of breath, abd. pain, nausea or vomiting. He can tell me his name and current year. He cannot tell me where he is. This seems to be his baseline. Per PT, recommend rehab, CM aware. Review of Systems Review of Systems: All systems reviewed & are unremarkable except as noted in HPI & below Constitutional: no fever and no chills Respiratory: no cough and no dyspnea Cardiovascular: no chest pain and no palpitations Gastrointestinal: no abdominal pain, no nausea and no vomiting Physical Exam Physical Exam: Constitutional: slender male in no acute distress, breathing comfortably on RA Eyes: PERRL, conjunctivae normal, anicteric sclerae ENMT: external ear and nose normal, oropharynx normal Respiratory: normal respiratory effort, CTAB, breathing comfortably on room air Cardiovascular: RRR, no murmur, no edema Gastrointestinal (Abdomen): normal bowel sounds, soft, nontender to palpation Neurologic: PERRL, EOMI, no face palsy, no dysarthria, moves extremities spontaneously MSK: no LE edema, left BKA, moves extremities spontaneously Psychiatric: Orientation: alert and oriented to person and time, answers some questions appropriately, confused about where he is, this seems to be baseline Results & Data Results & Data ([facility]) Vital Signs (Past 12 Hours) Vital Signs Temp Pulse Resp BP Pulse Ox 03/28/20 07:23 37.0 C 78 17 162/52 H 95 03/28/20 02:00 36.8 C 69 19 143/54 H 94 Laboratory Results 03/28/20 03/28/20 03/27/20 Range/Units 08:28 06:19 20:33 Sodium 140 (136-145) mmol/L Potassium 4.6 (3.5-5.1) mmol/L Chloride 106 (98-107) mmol/L Carbon Dioxide 28 (21-32) mmol/L Anion Gap 6.0 (3-11) BUN 15 (7-18) mg/dl Creatinine 0.89 (0.6-1.4) mg/dl Est Cr Clr Drug Dosing 71.7 ml/min Est GFR ( Amer) 101.8 Est GFR (Non-Af Amer) 87.9 BUN/Creatinine Ratio 16.3 (10-20) Glucose 128 H (70-99) mg/dl POC Glucose 205 H 100 H (70-99) mg/dl Calcium 8.8 (8.5-10.1) mg/dl 03/27/20 03/27/20 Range/Units 16:50 11:27 Sodium (136-145) mmol/L Potassium (3.5-5.1) mmol/L Chloride (98-107) mmol/L Carbon Dioxide (21-32) mmol/L Anion Gap (3-11) BUN (7-18) mg/dl Creatinine (0.6-1.4) mg/dl Est Cr Clr Drug Dosing ml/min Est GFR ( Amer) Est GFR (Non-Af Amer) BUN/Creatinine Ratio (10-20) Glucose (70-99) mg/dl POC Glucose 104 H 255 H (70-99) mg/dl Calcium (8.5-10.1) mg/dl Medications Administered Current Inpatient Medications Apixaban (Apixaban 5 Mg Tablet) 5 mg PO BID [facility] Stop: 04/24/20 20:59 Last Admin: 03/28/20 08:03 Dose: 5 mg Documented by: Aspirin (Aspirin 81 Mg Chew) 81 mg PO QAM [facility] Stop: 04/24/20 08:59 Last Admin: 03/28/20 08:05 Dose: 81 mg Documented by: Atorvastatin Calcium (Atorvastatin 20 Mg Tab) 20 mg PO QAM [facility] Stop: 04/22/20 14:29 Last Admin: 03/28/20 08:05 Dose: 20 mg Documented by: Dextrose (Dextrose 50% 50 Ml Syringe) 25 - 50 ml IV UD PRN; Protocol PRN Reason: Hypoglycemia Protocol Stop: 04/20/20 16:59 Glucagon (Glucagon For Inj 1 Mg Vial) 1 mg IM UD PRN; Protocol PRN Reason: Hypoglycemia Protocol Stop: 04/20/20 16:59 Glucose (Glucose 40% Gel 15 Gm Tube) 15 - 30 gm PO UD PRN; Protocol PRN Reason: Hypoglycemia Protocol Stop: 04/20/20 16:59 Glucose (Glucose 10 Tabs/Tube) 4 - 8 tabs PO UD PRN; Protocol PRN Reason: Hypoglycemia Protocol Stop: 04/20/20 16:59 Insulin Aspart (Insulin Aspart 100 Units/Ml 3 Ml Pen) 0 units SC BID@1630,2100 [facility] Stop: 04/25/20 16:29 Last Admin: 03/28/20 08:57 Dose: 3 units Documented by: Insulin Aspart (Insulin Aspart 100 Units/Ml 3 Ml Pen) 0 units SC BID@0730,1130 [facility] Stop: 04/25/20 12:24 Last Admin: 03/27/20 12:01 Dose: 10 units Documented by: Insulin Glargine (Insulin Glargine Solostar 100 Units/Ml 3 Ml Pen) 17 units SC [facility]; Protocol Stop: 04/25/20 08:59 Last Admin: 03/28/20 08:55 Dose: 17 units Documented by: Losartan Potassium (Losartan Potassium 50 Mg Tab) [facility] Stop: 04/26/20 08:59 Last Admin: 03/28/20 08:06 Dose: 50 mg Documented by: Metoprolol Tartrate (Metoprolol Tartrate 25 Mg Tab) 25 mg PO BID [facility] Stop: 04/22/20 20:59 Last Admin: 03/28/20 08:05 Dose: 25 mg Documented by: Metoprolol Tartrate (Metoprolol Tartrate 1 Mg/Ml Vial) 2.5 mg IV Q4H PRN PRN Reason: SBP greater than 150 Stop: 04/22/20 14:08 Miscellaneous (Carbohydrates For Hypoglycemia ) 15 - 30 gm PO UD PRN PRN Reason: Hypoglycemia Treatment Stop: 04/20/20 16:59 Last Admin: 03/25/20 21:05 Dose: 15 gm Documented by: Miscellaneous Information (Pharmacy Glycemic Mgmt Consult) 1 ea N/A UD PRN PRN Reason: Consult Stop: 04/21/20 09:14 Pantoprazole Sodium (Pantoprazole 40 Mg Tab) 40 mg PO DAILY [facility] Stop: 04/26/20 08:59 Last Admin: 03/28/20 08:06 Dose: 40 mg Documented by: Quetiapine Fumarate (Quetiapine Fumarate 25 Mg Tablet) 25 mg PO HS [facility] Stop: 04/23/20 20:59 Last Admin: 03/28/20 00:57 Dose: Not Given Documented by: Quetiapine Fumarate (Quetiapine Fumarate 25 Mg Tablet) 12.5 mg PO BID@0900,1400 [facility] Stop: 04/23/20 13:59 Last Admin: 03/28/20 08:04 Dose: 12.5 mg Documented by: Sertraline HCl (Sertraline Hcl 50 Mg Tablet) 50 mg PO [facility] Stop: 04/23/20 20:59 Last Admin: 03/28/20 00:57 Dose: Not Given Documented by: (1) DKA (diabetic ketoacidoses) Diabetes mellitus complication detail: with coma Diabetes mellitus type: type 1 Qualified Code(s): E10.11 - Type 1 diabetes mellitus with ketoacidosis with coma
--- NOTE | 2020-03-28 13:54 | Pharmacy Report ---
Pharmacy Glycemic Short Note 2 - Date of Service March 28, 2020 - Glycemic Short BSG Results (Last 24 hours): 03/27/20 03/27/20 03/28/20 16:50 20:33 06:19 Glucose 128 H POC Glucose 104 H 100 H 03/28/20 03/28/20 08:28 12:03 Glucose POC Glucose 205 H 240 H OUTPATIENT ANTIDIABETIC REGIMEN: * Lantus 18 units Q PM * Novolog 10 units BID w/ meals * A1c = 10.9% 03/22/20 ASSESSMENT: 03/28/20: * Patient received 35 units of insulin yesterday with variable BSG control (17 units of basal and 18 units of bolus) * Fasting BSG of 205 mg/dL is elevated. However, random BSG drawn ~ 2 hours earlier was at goal (128 mg/dL). This leaves me to believe that patient may have had something to eat prior to the POC BSG. I will resume previous dose of Lantus 18 units. * Lunch tends to be the highest BSG of the day. I will tighten carb coverage with breakfast. Keep carb coverage looser with other meals since BSG trends down throughout the day. 03/26/20: * Pt with LOW BSG last night at bedtime. May have been d/t all dextrose IVF dc (heparin infusion and D51/2NS) coupled with too aggressive NovoLog parameters for evening time * Pt BSGs tend to trend downwards throughout the day. Most likely needs differing CF/CR for breakfast/lunch vs dinner/hs. Will adjust accordingly * BSGs react to very small changes in insulin dosing. Will reduce basal insulin by one unit to prevent rebound hyperglycemia tomorrow. 03/25 * Glycemic control acceptable, although only because patient's BSG's are historically difficult to control well. No hypoglycemic episodes noted, although patient is still experiencing his usual increased BSG's mid-day (see 03/24 below). * Patient remains on [id number] IVF @ 50 mL/hr for prior NPO status. Patient now ordered a diet. Discussed w Dr. Cobb - plan is to keep it until PO intake adequate. At breakfast today, he only had three bites of eggs and one bite of pudding for breakfast (per MEGHANA Velez). But po intake improved at lunch (all of mashed potatoes and pudding) therefore [id number] IVF was stopped * Will loosen correction factor * Will add scale in for AM Lantus * Will change Novolog to ACHS, with one overnight check 03/24 * Glycemic control acceptable for this patient over last 24 hrs. Although only ~50% of his BSGs have been at goal, this is better than we usually achieve during his admission. * He remains NPO, but dextrose containing IVFs continue to infusion. His BSG pattern suggests that his Lantus does not provide a full 24 hr duration, and this his basal insulin needs decrease overnight (as we saw on prior admissions). Normally I would give Lantus BID in such cases, however I worry that doing so will result in poor control as he often tends to refuse insulin doses. Will continue to trial once daily Lantus dosed in the AM. * Novolog correction may need increased during awake hours, but decreased HS and overnight. I believe a small increase in correction will be tolerated well while receiving continuous dextrose however. Will require changes when dextrose infusion stopped. 03/23 * Type 1 diabetic admitted with severe DKA on 03/21 due to non-compliance with insulin regimen, CHIVO and respiratory failure requiring intubation * He was managed with IV fluid resuscitation, IV insulin drip and e-lyte replacement * Yesterday, patient's AG acidosis had resolved and transition to SQ regimen initiated. Insulin drip d/c'd overnight. * This AM patient has been extubated. He remains NPO at this time however, but dextrose containing IVF's continue * This patient is known to the Glycemic Control Service from his recent hospitalization. During last admission he frequently refused insulin doses leading to wide swings in BSGs. Many times nursing staff needed to offer his basal insulin dose more than once to prevent severe hyperglycemic episodes in a type 1 diabetic. PLAN FOR INPATIENT GLYCEMIC CONTROL: * Basal insulin - increase * Lantus 18 units SQ qAM * Bolus insulin - tighten CF/CR with breakfast * NovoLog per scale ACHS with one overnight check * Goal Range: Low 110 mg/dL - High 140 mg/dL * BREAKFAST PARAMETERS * Correction Factor: 25 mg/dL/unit * Nutritional / Prandial insulin per carb ratio of 1 unit per 8 grams CHO consumed * LUNCH, DINNER & HS PARAMETERS * Correction Factor: 40 mg/dL/unit * Nutritional / Prandial insulin per carb ratio of 1 unit per 13 grams CHO consumed
--- NOTE | 2020-03-29 07:50 | Hospitalist Progress Note ---
Date of Service March 29, 2020 Assessment & Plan (1) Unresponsive: (2) Metabolic encephalopathy: (3) DKA (diabetic ketoacidoses): (4) Metabolic acidosis: 69 y/o M with PMH insulin-dependent DM I, HTN, bipolar, dyslipidemia presented to ER for unresponsiveness. History obtained from ER physician as patient is currently sedated and intubated. It is reported that patient had been refusing taking his insulin. Upon arrival to ER patient was tachypneic and unresponsive. He was intubated. Patient with history COVID-19 requiring hospitalization 11/2019 and during that hospitalization developed paroxysmal A. fib and was started on metoprolol tartrate and Eliquis. Initial pH was 7.02, now 7.7 (likely from bicarb amps initially after admission and correction of DKA) Anion GAP 32 now 11 BG was 961 Beta hydroxybutyrate was 74.17. Was started on insulin drip for DKA, now transitioned to subcut Acidosis resolved Extubated on 03/23/20. Currently on room air Downgraded from ICU. Aspiration precautions, some difficulty with swallowing meds noted, speech eval ordered, now swallowing seems to be much improved Procal was 1.38 on admission trended down to 0.82 CT Ab/P show basilar opacities suggestive of atelectasis. Possible Aspiration Blood culture growing GPC in one bottle (Micrococcus), likely contaminant. MRSA serology negative Repeat blood cultures negative Received IV empiric antibiotics, zosyn, stopped 03/24 by ICU team and doxycycline was started for next 3 days Leukocytosis resolved (5) Acute hyperkalemia: Initial K: 7.5 on admission Trended down with IVF and insulin therapy. Required repletion Normalized Monitor and manage appropriately (6) CHIVO (acute kidney injury): BUN 61, Cr: 3.17 Repeat Cr: 2.69 on admission Secondary to DKA Resolved Cr now normalized 0.85 Monitor renal functions, avoid nephrotoxic agents Hypomag, Hypophos, Hypokal. - from poor oral intake - replace and monitor (7) Elevated troponin: Trop was 0.066 on admission peaked at 13.7 trended down to 5.5 NSTEMI, deman ischemia in the setting of severe metabolic dearrengment Continued heparin drip, now switched to Eliquis Echo did not show any wall motion abnormalities Cardiology following (8) Paroxysmal atrial fibrillation with RVR: H/O PAF during hospitalization in 11/2019 On Eliquis, metoprolol tartrate at home (9) Hypertension: On losartan at home, dose now increased to 25 bid, now started on 50 mg daily since 03/27 resumed losartan after resolution of CHIVO (10) Bipolar 1 disorder: On quetiapine, sertraline at home Psychiatry also consulted, given bipolar d/o and medication noncompliance Dispo - downgraded from ICU to PCU, now to Med/Surg, pt resides at [facility], per PT needs rehab, CM aware, plan to update PT eval Admission and Anticipated Discharge Date Admission Date: March 21, 2020 Subjective Pt is sitting up in bed in [facility]. Per nursing staff no current swallowing concerns. Pt denies fever, chills, chest pain, shortness of breath, abd. pain, nausea or vomiting. Plan to update PT eval. Review of Systems Review of Systems: All systems reviewed & are unremarkable except as noted in HPI & below Constitutional: no fever and no chills Respiratory: no cough and no dyspnea Cardiovascular: no chest pain and no palpitations Gastrointestinal: no abdominal pain, no nausea and no vomiting Physical Exam Physical Exam: Constitutional: slender male in no acute distress, breathing comfortably on RA Eyes: PERRL, conjunctivae normal, anicteric sclerae ENMT: external ear and nose normal, oropharynx normal Respiratory: normal respiratory effort, CTAB, breathing comfortably on room air Cardiovascular: RRR, no murmur, no edema Gastrointestinal (Abdomen): normal bowel sounds, soft, nontender to palpation Neurologic: PERRL, EOMI, no face palsy, no dysarthria, moves extremities spontaneously MSK: no LE edema, left BKA, moves extremities spontaneously Psychiatric: Orientation: alert and oriented to person and time, answers some questions appropriately, confused about where he is, this seems to be baseline Results & Data Results & Data ([facility]) Vital Signs (Past 12 Hours) Vital Signs Temp Pulse Resp BP BP Pulse Ox 03/29/20 07:19 36.8 C 64 16 145/66 H 96 03/29/20 00:36 37.1 C 74 20 167/64 H 95 Laboratory Results 03/29/20 03/29/20 03/28/20 Range/Units 12:14 08:05 20:10 Sodium 138 (136-145) mmol/L Potassium 4.6 (3.5-5.1) mmol/L Chloride 104 (98-107) mmol/L Carbon Dioxide 28 (21-32) mmol/L Anion Gap 6.0 (3-11) BUN 20 H (7-18) mg/dl Creatinine 0.90 (0.6-1.4) mg/dl Est Cr Clr Drug Dosing 70.9 ml/min Est GFR ( Amer) 101.4 Est GFR (Non-Af Amer) 87.5 BUN/Creatinine Ratio 22.0 H (10-20) Glucose 241 H (70-99) mg/dl POC Glucose 272 H 244 H (70-99) mg/dl Calcium 8.6 (8.5-10.1) mg/dl 03/28/20 Range/Units 17:09 Sodium (136-145) mmol/L Potassium (3.5-5.1) mmol/L Chloride (98-107) mmol/L Carbon Dioxide (21-32) mmol/L Anion Gap (3-11) BUN (7-18) mg/dl Creatinine (0.6-1.4) mg/dl Est Cr Clr Drug Dosing ml/min Est GFR ( Amer) Est GFR (Non-Af Amer) BUN/Creatinine Ratio (10-20) Glucose (70-99) mg/dl POC Glucose 223 H (70-99) mg/dl Calcium (8.5-10.1) mg/dl Medications Administered Current Inpatient Medications Apixaban (Apixaban 5 Mg Tablet) 5 mg PO BID [facility] Stop: 04/24/20 20:59 Last Admin: 03/29/20 08:42 Dose: 5 mg Documented by: Aspirin (Aspirin 81 Mg Chew) [facility] [place]: 04/24/20 08:59 Last Admin: 03/29/20 09:10 Dose: 81 mg Documented by: Atorvastatin Calcium (Atorvastatin 20 Mg Tab) [facility] [place]: 04/22/20 14:29 Last Admin: 03/29/20 08:42 Dose: 20 mg Documented by: Dextrose (Dextrose 50% 50 Ml Syringe) 25 - 50 ml IV UD PRN; Protocol PRN Reason: Hypoglycemia Protocol Stop: 04/20/20 16:59 Glucagon (Glucagon For Inj 1 Mg Vial) 1 mg IM UD PRN; Protocol PRN Reason: Hypoglycemia Protocol Stop: 04/20/20 16:59 Glucose (Glucose 40% Gel 15 Gm Tube) 15 - 30 gm PO UD PRN; Protocol PRN Reason: Hypoglycemia Protocol Stop: 04/20/20 16:59 Glucose (Glucose 10 Tabs/Tube) 4 - 8 tabs PO UD PRN; Protocol PRN Reason: Hypoglycemia Protocol Stop: 04/20/20 16:59 Insulin Aspart (Insulin Aspart 100 Units/Ml 3 Ml Pen) 0 units SC DAILY@0730 [facility] Stop: 04/28/20 07:29 Last Admin: 03/29/20 09:10 Dose: 13 units Documented by: Insulin Aspart (Insulin Aspart 100 Units/Ml 3 Ml Pen) 0 units SC TID@1130,1630,2100 [facility] Stop: 04/27/20 16:29 Last Admin: 03/29/20 13:05 Dose: 11 units Documented by: Insulin Glargine (Insulin Glargine Solostar 100 Units/Ml 3 Ml Pen) [facility] Protocol Stop: 04/28/20 08:59 Last Admin: 03/29/20 09:11 Dose: 18 units Documented by: Losartan Potassium (Losartan Potassium 50 Mg Tab) 50 mg PO QAM [facility] Stop: 04/26/20 08:59 Last Admin: 03/29/20 08:42 Dose: 50 mg Documented by: Metoprolol Tartrate (Metoprolol Tartrate 25 Mg Tab) 25 mg PO BID [facility] Stop: 04/22/20 20:59 Last Admin: 03/29/20 08:42 Dose: 25 mg Documented by: Metoprolol Tartrate (Metoprolol Tartrate 1 Mg/Ml Vial) 2.5 mg IV Q4H PRN PRN Reason: SBP greater than 150 Stop: 04/22/20 14:08 Miscellaneous (Carbohydrates For Hypoglycemia ) 15 - 30 gm PO UD PRN PRN Reason: Hypoglycemia Treatment Stop: 04/20/20 16:59 Last Admin: 03/25/20 21:05 Dose: 15 gm Documented by: Miscellaneous Information (Pharmacy Glycemic Mgmt Consult) 1 ea N/A UD PRN PRN Reason: Consult Stop: 04/21/20 09:14 Pantoprazole Sodium (Pantoprazole 40 Mg Tab) 40 mg PO DAILY [facility] Stop: 04/26/20 08:59 Last Admin: 03/29/20 08:42 Dose: 40 mg Documented by: Quetiapine Fumarate (Quetiapine Fumarate 25 Mg Tablet) [address] [facility] Stop: 04/23/20 20:59 Last Admin: 03/28/20 20:11 Dose: 25 mg Documented by: Quetiapine Fumarate (Quetiapine Fumarate 25 Mg Tablet) 12.5 mg PO BID@0900,1400 [facility] Stop: 04/23/20 13:59 Last Admin: 03/29/20 13:04 Dose: 12.5 mg Documented by: Sertraline HCl (Sertraline Hcl 50 Mg Tablet) [address] [facility] Stop: 04/23/20 20:59 Last Admin: 03/28/20 20:11 Dose: 50 mg Documented by: (1) DKA (diabetic ketoacidoses) Diabetes mellitus complication detail: with coma Diabetes mellitus type: type 1 Qualified Code(s): E10.11 - Type 1 diabetes mellitus with ketoacidosis with coma
[2020-03-29] MEDS: ATORVASTATIN 20 MG TAB PO SCH (08:42)
[2020-03-29] MEDS: METOPROLOL TARTRATE 25 MG TAB PO SCH ×2 (08:42→20:47)
[2020-03-29] MEDS: LOSARTAN POTASSIUM 50 MG TAB PO SCH (08:42)
[2020-03-29] MEDS: PANTOprazole 40 MG TAB PO SCH (08:42)
[2020-03-29] MEDS: QUEtiapine FUMARATE 25 MG TABLET PO SCH ×3 (08:42→20:47)
[2020-03-29] MEDS: APIXABAN 5 MG TABLET PO SCH ×2 (08:42→20:47)
[2020-03-29 08:51] LABS: Calcium 8.6 mg/dl (8.5-10.1); Creatinine Clr Calc Pharmacy 70.9 ml/min; Est GFR (African American) 101.4; Est GFR (Non-African American) 87.5; Potassium 4.6 mmol/L (3.5-5.1)
[2020-03-29] MEDS: ASPIRIN 81 MG CHEW PO SCH (09:10)
[2020-03-29] MEDS: INSULIN ASPART 100 UNITS/ML 3 ML PEN SC SCH ×4 (09:10→21:45)
[2020-03-29] MEDS: INSULIN GLARGINE SOLOSTAR 100 UNITS/ML 3 ML PEN SC SCH (09:11)
--- NOTE | 2020-03-29 10:02 | Pharmacy Report ---
Pharmacy Glycemic Short Note 2 - Date of Service March 29, 2020 - Glycemic Short BSG Results (Last 24 hours): 03/28/20 03/28/20 03/28/20 12:03 17:09 20:10 Glucose POC Glucose 240 H 223 H 244 H 03/29/20 08:05 Glucose 241 H POC Glucose OUTPATIENT ANTIDIABETIC REGIMEN: * Lantus 18 units Q PM * Novolog 10 units BID w/ meals * A1c = 10.9% 03/22/20 ASSESSMENT: 03/29/20: * Patient received total fo 41 units of insulin yesterday, of which 17 were basal insulin * Fasting BSG continues to trend upward, basal increased to 18 units this AM * BSGs in 200s most of the day yesterday, trialing tighter CF/CR in AM, looser rest of day 03/28/20: * Patient received 35 units of insulin yesterday with variable BSG control (17 units of basal and 18 units of bolus) * Fasting BSG of 205 mg/dL is elevated. However, random BSG drawn ~ 2 hours earlier was at goal (128 mg/dL). This leaves me to believe that patient may have had something to eat prior to the POC BSG. I will resume previous dose of Lantus 18 units. * Lunch tends to be the highest BSG of the day. I will tighten carb coverage with breakfast. Keep carb coverage looser with other meals since BSG trends down throughout the day. 03/26/20: * Pt with LOW BSG last night at bedtime. May have been d/t all dextrose IVF dc (heparin infusion and D51/2NS) coupled with too aggressive NovoLog parameters for evening time * Pt BSGs tend to trend downwards throughout the day. Most likely needs differing CF/CR for breakfast/lunch vs dinner/hs. Will adjust accordingly * BSGs react to very small changes in insulin dosing. Will reduce basal insulin by one unit to prevent rebound hyperglycemia tomorrow. PLAN FOR INPATIENT GLYCEMIC CONTROL: * Basal insulin - increase * Lantus 18 units SQ qAM * Bolus insulin - tighten CF/CR with breakfast * NovoLog per scale ACHS with one overnight check * Goal Range: Low 110 mg/dL - High 140 mg/dL * BREAKFAST PARAMETERS * Correction Factor: 25 mg/dL/unit * Nutritional / Prandial insulin per carb ratio of 1 unit per 8 grams CHO consumed * LUNCH, DINNER & HS PARAMETERS * Correction Factor: 40 mg/dL/unit * Nutritional / Prandial insulin per carb ratio of 1 unit per 13 grams CHO consumed
[2020-03-29] MEDS: CARBOHYDRATES FOR HYPOGLYCEMIA PO PRN (20:34)
[2020-03-29] MEDS: SERTRALINE HCL 50 MG TABLET PO SCH (20:47)
--- NOTE | 2020-03-30 08:36 | Hospitalist Progress Note ---
Date of Service March 30, 2020 Assessment & Plan (1) Unresponsive: (2) Metabolic encephalopathy: (3) DKA (diabetic ketoacidoses): (4) Metabolic acidosis: 69 y/o M with PMH insulin-dependent DM I, HTN, bipolar, dyslipidemia presented to ER for unresponsiveness. History obtained from ER physician as patient is sedated and intubated. It is reported that patient had been refusing taking his insulin. Upon arrival to ER patient was tachypneic and unresponsive. He was intubated. Patient with history COVID-19 requiring hospitalization 11/2019 and during that hospitalization developed paroxysmal A. fib and was started on metoprolol tartrate and Eliquis. Initial pH was 7.02, now 7.7 (likely from bicarb amps initially after admission and correction of DKA) Anion GAP 32 now normalized BG was 961 Beta hydroxybutyrate was 74.17. Was initially started on insulin drip for DKA, now transitioned to subcut Acidosis resolved Extubated on 03/23/20. Currently on room air Downgraded from ICU. Aspiration precautions initially, some difficulty with swallowing meds noted, speech eval ordered, now swallowing seems to be much improved/no concerns Procal was 1.38 on admission trended down to 0.82 CT Ab/P show basilar opacities suggestive of atelectasis. Possible Aspiration Blood culture growing GPC in one bottle (Micrococcus), likely contaminant. MRSA serology negative Repeat blood cultures negative Received IV empiric antibiotics, zosyn, stopped 03/24 by ICU team and doxycycline was started for next 3 days Leukocytosis resolved (5) Acute hyperkalemia: Initial K: 7.5 on admission Trended down with IVF and insulin therapy. Required repletion Normalized Monitor and manage appropriately (6) CHIVO (acute kidney injury): BUN 61, Cr: 3.17 Repeat Cr: 2.69 on admission Secondary to DKA Resolved Cr now normalized 0.85 Monitor renal functions, avoid nephrotoxic agents Hypomag, Hypophos, Hypokal. - from poor oral intake - replace and monitor - normalized (7) Elevated troponin: Trop was 0.066 on admission peaked at 13.7 trended down to 5.5 NSTEMI, demand ischemia in the setting of severe metabolic abnormalities Continued heparin drip, now switched to Eliquis Echo did not show any wall motion abnormalities Cardiology following (8) Paroxysmal atrial fibrillation with RVR: H/O PAF during hospitalization in 11/2019 On Eliquis, metoprolol tartrate at home (9) Hypertension: On losartan at home, dose now increased to 25 bid, now started on 50 mg daily since 03/27 resumed losartan after resolution of CHIVO (10) Bipolar 1 disorder: On quetiapine, sertraline at home Psychiatry also consulted, given bipolar d/o and medication noncompliance Dispo - downgraded from ICU to PCU, now to Med/Surg, pt resides at [facility] Admission and Anticipated Discharge Date Admission Date: March 21, 2020 Subjective Denies any fevers, chills, chest pain, shortness of breath, abdominal pain, nausea or vomiting. Patient is lying in bed, in no acute distress. Says that he feels well. He was counseled again about the use of insulin. Review of Systems Review of Systems: All systems reviewed & are unremarkable except as noted in HPI & below Constitutional: no fever and no chills Respiratory: no cough and no dyspnea Cardiovascular: no chest pain and no palpitations Gastrointestinal: no abdominal pain, no nausea and no vomiting Physical Exam Physical Exam: Constitutional: slender male in no acute distress, breathing comfortably on RA Eyes: PERRL, conjunctivae normal, anicteric sclerae ENMT: external ear and nose normal, oropharynx normal Respiratory: normal respiratory effort, CTAB, no wheezing, rhonchi or crackles, breathing comfortably on room air Cardiovascular: RRR, no murmur, no edema Gastrointestinal (Abdomen): normal bowel sounds, soft, nontender to palpation Neurologic: PERRL, EOMI, no face palsy, no dysarthria, moves extremities spontaneously MSK: no LE edema, left BKA, moves extremities spontaneously Psychiatric: Orientation: alert and oriented to person and time, answers some questions appropriately, confused about where he is, this seems to be baseline Results & Data Results & Data ([facility]) Vital Signs (Past 12 Hours) Vital Signs Temp Pulse Resp BP BP Pulse Ox 03/30/20 07:35 36.6 C 64 16 185/72 H 97 03/30/20 00:00 36.8 C 64 15 166/64 H 95 03/29/20 20:44 70 137/64 Laboratory Results 03/30/20 03/29/20 03/29/20 Range/Units 04:33 20:56 20:31 Sodium (136-145) mmol/L Potassium (3.5-5.1) mmol/L Chloride (98-107) mmol/L Carbon Dioxide (21-32) mmol/L Anion Gap (3-11) BUN (7-18) mg/dl Creatinine (0.6-1.4) mg/dl Est Cr Clr Drug Dosing ml/min Est GFR ( Amer) Est GFR (Non-Af Amer) BUN/Creatinine Ratio (10-20) Glucose (70-99) mg/dl POC Glucose 127 H 77 57 L* (70-99) mg/dl Calcium (8.5-10.1) mg/dl 03/29/20 03/29/20 03/29/20 Range/Units 20:29 17:14 12:14 Sodium (136-145) mmol/L Potassium (3.5-5.1) mmol/L Chloride (98-107) mmol/L Carbon Dioxide (21-32) mmol/L Anion Gap (3-11) BUN (7-18) mg/dl Creatinine (0.6-1.4) mg/dl Est Cr Clr Drug Dosing ml/min Est GFR ( Amer) Est GFR (Non-Af Amer) BUN/Creatinine Ratio (10-20) Glucose (70-99) mg/dl POC Glucose 57 L* 76 272 H (70-99) mg/dl Calcium (8.5-10.1) mg/dl 03/29/20 Range/Units 08:05 Sodium 138 (136-145) mmol/L Potassium 4.6 (3.5-5.1) mmol/L Chloride 104 (98-107) mmol/L Carbon Dioxide 28 (21-32) mmol/L Anion Gap 6.0 (3-11) BUN 20 H (7-18) mg/dl Creatinine 0.90 (0.6-1.4) mg/dl Est Cr Clr Drug Dosing 70.9 ml/min Est GFR ( Amer) 101.4 Est GFR (Non-Af Amer) 87.5 BUN/Creatinine Ratio 22.0 H (10-20) Glucose 241 H (70-99) mg/dl POC Glucose (70-99) mg/dl Calcium 8.6 (8.5-10.1) mg/dl Medications Administered Current Inpatient Medications Apixaban (Apixaban 5 Mg Tablet) 5 mg PO BID [facility] Stop: 04/24/20 20:59 Last Admin: 03/29/20 20:47 Dose: 5 mg Documented by: Aspirin (Aspirin 81 Mg Chew) [facility] [place] Stop: 04/24/20 08:59 Last Admin: 03/29/20 09:10 Dose: 81 mg Documented by: Atorvastatin Calcium (Atorvastatin 20 Mg Tab) 20 mg PO [facility] Stop: 04/22/20 14:29 Last Admin: 03/29/20 08:42 Dose: 20 mg Documented by: Dextrose (Dextrose 50% 50 Ml Syringe) 25 - 50 ml IV UD PRN; Protocol PRN Reason: Hypoglycemia Protocol Stop: 04/20/20 16:59 Glucagon (Glucagon For Inj 1 Mg Vial) 1 mg IM UD PRN; Protocol PRN Reason: Hypoglycemia Protocol Stop: 04/20/20 16:59 Glucose (Glucose 40% Gel 15 Gm Tube) 15 - 30 gm PO UD PRN; Protocol PRN Reason: Hypoglycemia Protocol Stop: 04/20/20 16:59 Glucose (Glucose 10 Tabs/Tube) 4 - 8 tabs PO UD PRN; Protocol PRN Reason: Hypoglycemia Protocol Stop: 04/20/20 16:59 Insulin Aspart (Insulin Aspart 100 Units/Ml 3 Ml Pen) 0 units SC DAILY@0730 [facility] Stop: 04/28/20 07:29 Last Admin: 03/29/20 09:10 Dose: 13 units Documented by: Insulin Aspart (Insulin Aspart 100 Units/Ml 3 Ml Pen) 0 units SC TID@1130,1630,2100 [facility] Stop: 04/27/20 16:29 Last Admin: 03/29/20 21:45 Dose: Not Given Documented by: Insulin Glargine (Insulin Glargine Solostar 100 Units/Ml 3 Ml Pen) 18 units SC [facility]; Protocol Stop: 04/28/20 08:59 Last Admin: 03/29/20 09:11 Dose: 18 units Documented by: Losartan Potassium (Losartan Potassium 50 Mg Tab) 50 mg PO [facility] Stop: 04/26/20 08:59 Last Admin: 03/29/20 08:42 Dose: 50 mg Documented by: Metoprolol Tartrate (Metoprolol Tartrate 25 Mg Tab) 25 mg PO BID [facility] Stop: 04/22/20 20:59 Last Admin: 03/29/20 20:47 Dose: 25 mg Documented by: Metoprolol Tartrate (Metoprolol Tartrate 1 Mg/Ml Vial) 2.5 mg IV Q4H PRN PRN Reason: SBP greater than 150 Stop: 04/22/20 14:08 Miscellaneous (Carbohydrates For Hypoglycemia ) 15 - 30 gm PO UD PRN PRN Reason: Hypoglycemia Treatment Stop: 04/20/20 16:59 Last Admin: 03/29/20 20:34 Dose: 15 gm Documented by: Miscellaneous Information (Pharmacy Glycemic Mgmt Consult) 1 ea N/A UD PRN PRN Reason: Consult Stop: 04/21/20 09:14 Pantoprazole Sodium (Pantoprazole 40 Mg Tab) 40 mg PO DAILY [facility] Stop: 04/26/20 08:59 Last Admin: 03/29/20 08:42 Dose: 40 mg Documented by: Quetiapine Fumarate (Quetiapine Fumarate 25 Mg Tablet) 25 mg PO HS [facility] Stop: 04/23/20 20:59 Last Admin: 03/29/20 20:47 Dose: 25 mg Documented by: Quetiapine Fumarate (Quetiapine Fumarate 25 Mg Tablet) 12.5 mg PO BID@0900,1400 [facility] Stop: 04/23/20 13:59 Last Admin: 03/29/20 13:04 Dose: 12.5 mg Documented by: Sertraline HCl (Sertraline Hcl 50 Mg Tablet) 50 mg PO HS [facility] Stop: 04/23/20 20:59 Last Admin: 03/29/20 20:47 Dose: 50 mg Documented by: (1) DKA (diabetic ketoacidoses) Diabetes mellitus complication detail: with coma Diabetes mellitus type: type 1 Qualified Code(s): E10.11 - Type 1 diabetes mellitus with ketoacidosis with coma
--- NOTE | 2020-03-30 08:40 | Pharmacy Report ---
Pharmacy Glycemic Short Note 2 - Date of Service March 30, 2020 - Glycemic Short BSG Results (Last 24 hours): 03/29/20 03/29/20 03/29/20 08:05 12:14 17:14 Glucose 241 H POC Glucose 272 H 76 03/29/20 03/29/20 03/29/20 20:29 20:31 20:56 Glucose POC Glucose 57 L* 57 L* 77 03/30/20 04:33 Glucose POC Glucose 127 H OUTPATIENT ANTIDIABETIC REGIMEN: * Lantus 18 units Q PM * Novolog 10 units BID w/ meals * A1c = 10.9% 03/22/20 ASSESSMENT: 03/30/20: * Patient received total of 43 units of insulin yesterday, of which 18 were basal * Fasting BSG 127 mg/dL - continue same basal insulin * Patient known to have labile BSGs with wide fluctuations, almost 300 yesterday at lunch and decreased to 76 mg/dL with dinner utilizing similar parameters from day before (at that time BSGs remained stable) * BSG at HS low at 57 mg/dL - treated per hypoglycemia protocol with 15 gm CHO and on recheck 77 mg/dL / feel that decrease in BSGs related to too much correctional insulin at lunch time. Plan to have tighter coverage at breakfast and looser rest of day 03/29/20: * Patient received total fo 41 units of insulin yesterday, of which 17 were basal insulin * Fasting BSG continues to trend upward, basal increased to 18 units this AM * BSGs in 200s most of the day yesterday, trialing tighter CF/CR in AM, looser rest of day 03/28/20: * Patient received 35 units of insulin yesterday with variable BSG control (17 units of basal and 18 units of bolus) * Fasting BSG of 205 mg/dL is elevated. However, random BSG drawn ~ 2 hours earlier was at goal (128 mg/dL). This leaves me to believe that patient may have had something to eat prior to the POC BSG. I will resume previous dose of Lantus 18 units. * Lunch tends to be the highest BSG of the day. I will tighten carb coverage with breakfast. Keep carb coverage looser with other meals since BSG trends down throughout the day. 03/26/20: * Pt with LOW BSG last night at bedtime. May have been d/t all dextrose IVF dc (heparin infusion and D51/2NS) coupled with too aggressive NovoLog parameters for evening time * Pt BSGs tend to trend downwards throughout the day. Most likely needs differing CF/CR for breakfast/lunch vs dinner/hs. Will adjust accordingly * BSGs react to very small changes in insulin dosing. Will reduce basal insulin by one unit to prevent rebound hyperglycemia tomorrow. PLAN FOR INPATIENT GLYCEMIC CONTROL: * Basal insulin - continue * Lantus 18 units SQ qAM * Bolus insulin - tighten CF/CR with breakfast * NovoLog per scale ACHS with one overnight check * Goal Range: Low 110 mg/dL - High 140 mg/dL * BREAKFAST PARAMETERS * Correction Factor: 30 mg/dL/unit * Nutritional / Prandial insulin per carb ratio of 1 unit per 9 grams CHO consumed * LUNCH, DINNER & HS PARAMETERS * Correction Factor: 40 mg/dL/unit * Nutritional / Prandial insulin per carb ratio of 1 unit per 13 grams CHO consumed
[2020-03-30] MEDS: ATORVASTATIN 20 MG TAB PO SCH (08:50)
[2020-03-30] MEDS: QUEtiapine FUMARATE 25 MG TABLET PO SCH (08:50)
[2020-03-30] MEDS: LOSARTAN POTASSIUM 50 MG TAB PO SCH (08:50)
[2020-03-30] MEDS: PANTOprazole 40 MG TAB PO SCH (08:50)
[2020-03-30] MEDS: METOPROLOL TARTRATE 25 MG TAB PO SCH (08:50)
[2020-03-30] MEDS: APIXABAN 5 MG TABLET PO SCH (08:50)
[2020-03-30] MEDS: INSULIN GLARGINE SOLOSTAR 100 UNITS/ML 3 ML PEN SC SCH (08:50)
[2020-03-30] MEDS: INSULIN ASPART 100 UNITS/ML 3 ML PEN SC SCH (08:52)
[2020-03-30] MEDS: ASPIRIN 81 MG CHEW PO SCH (08:55)
--- NOTE | 2020-03-30 09:26 | Discharge Summary ---
Date of Service March 30, 2020 Admission HPI Per Admitting Provider Pt is 69 y/o M with PMH insulin-dependent DM I, HTN, bipolar, dyslipidemia presented to ER for unresponsiveness. History obtained from ER physician as patient is currently sedated and intubated. It is reported that patient had been refusing taking his insulin. Upon arrival to ER patient was tachypneic and unresponsive. He was intubated. Patient with history COVID-19 requiring hospitalization 11/2019 and during that hospitalization developed paroxysmal A. fib and was started on metoprolol tartrate and Eliquis. Today in ER patient was found to have WBC: 22, bicarb 7, anion gap 27, BUN 61, Cr: 3, glucose: 961, beta hydroxybutyric acid: 111, K: 7.5, VBG: pH: 7.0, PCO2: 26. ABG is pending. 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 Patient to ICU for further evaluation and management Admission Exam Per Admitting Provider General: +sedated and intubated, appears WDWN Head: normocephalic, atraumatic Eyes: pupils dilated, not reactive, conjunctiva non-injected, anicteric ENT: normal inspection external ears, nose Neck: trachea midline Lungs: +intubated, lungs sounds present, clear CV: RRR, no murmur, no pretibial edema Abd: normal BS, soft, non-tender Ext: no cyanosis, BKA left Neuro: Sedated and intubated Skin: warm, dry Principal Diagnosis DKA Unresponsive, required intubation Elevated troponin, demand ischemia, due to above CHIVO, metabolic acidosis, electrolyte abnormalities Discharge Exam Constitutional: slender male in no acute distress, breathing comfortably on RA Eyes: PERRL, conjunctivae normal, anicteric sclerae ENMT: external ear and nose normal, oropharynx normal Respiratory: normal respiratory effort, CTAB, no wheezing, rhonchi or crackles, breathing comfortably on room air Cardiovascular: RRR, no murmur, no edema Gastrointestinal (Abdomen): normal bowel sounds, soft, nontender to palpation Neurologic: PERRL, EOMI, no face palsy, no dysarthria, moves extremities spontaneously MSK: no LE edema, left BKA, moves extremities spontaneously Psychiatric: Orientation: alert and oriented to person and time, answers some questions appropriately, confused about where he is, this seems to be baseline Discharge Data Allergies Allergy/AdvReac Type Severity Reaction Status Date / Time Unable to Assess Allergy Unverified 12/10/19 11:37 Consultations 03/21/20 16:06 ED Decision to Admit Stat 03/21/20 18:14 Consult Case Management - Discharge Planning Routine 03/22/20 08:46 Consult Cardiology Routine 03/24/20 09:04 Consult Psychiatry Routine Ordered Studies 03/21/20 14:58 CT abd pelvis wo con Stat IMPRESSION: 1. No bowel obstruction or bowel wall thickening. 2. Trace pleural effusions with bibasilar opacities suggestive of atelectasis. 3. Hepatic steatosis. 4. Technically age-indeterminate L4 compression deformity without paravertebral edema, likely chronic. 5. Additional findings as above. CT head/brain wo con Stat FINDINGS: No acute intracranial hemorrhage, midline shift, intracranial mass, hydrocephalus, territorial ischemia or abnormal extra-axial collection. Age- related involutional changes with ex vacuo ventriculomegaly. Patchy and confluent white matter hypodensities are suggestive of advanced chronic microvascular ischemic disease. Focal area of encephalomalacia involving the left frontal lobe is suggestive of remote infarct. The calvarium is intact. The paranasal sinuses, mastoid air cells, and middle ear cavities are clear. IMPRESSION: No acute intracranial abnormality. Diabetes Follow up Diabetes Follow-up Needed for HgbA1c >9% Hospital Course (1) Unresponsive: (2) Metabolic encephalopathy: (3) DKA (diabetic ketoacidoses): (4) Metabolic acidosis: 69 y/o M with PMH insulin-dependent DM I, HTN, bipolar, dyslipidemia presented to ER for unresponsiveness. History obtained from ER physician as patient is sedated and intubated. It is reported that patient had been refusing taking his insulin. Upon arrival to ER patient was tachypneic and unresponsive. He was intubated. Patient with history COVID-19 requiring hospitalization 11/2019 and during that hospitalization developed paroxysmal A. fib and was started on metoprolol tartrate and Eliquis. Initial pH was 7.02, now 7.7 (likely from bicarb amps initially after admission and correction of DKA) Anion GAP 32 now normalized BG was 961 Beta hydroxybutyrate was 74.17. Was initially started on insulin drip for DKA, now transitioned to subcut Acidosis resolved Extubated on 03/23/20. Currently on room air Downgraded from ICU. Aspiration precautions initially, some difficulty with swallowing meds noted, speech eval ordered, now swallowing seems to be much improved/no concerns Procal was 1.38 on admission trended down to 0.82 CT Ab/P show basilar opacities suggestive of atelectasis. Possible Aspiration Blood culture growing GPC in one bottle (Micrococcus), likely contaminant. MRSA serology negative Repeat blood cultures negative Received IV empiric antibiotics, zosyn, stopped 03/24 by ICU team and doxycycline was started for next 3 days Leukocytosis resolved (5) Acute hyperkalemia: Initial K: 7.5 on admission Trended down with IVF and insulin therapy. Required repletion Normalized Monitor and manage appropriately (6) CHIVO (acute kidney injury): BUN 61, Cr: 3.17 Repeat Cr: 2.69 on admission Secondary to DKA Resolved Cr now normalized 0.85 Monitor renal functions, avoid nephrotoxic agents Hypomag, Hypophos, Hypokal. - from poor oral intake - replace and monitor - normalized (7) Elevated troponin: Trop was 0.066 on admission peaked at 13.7 trended down to 5.5 NSTEMI, demand ischemia in the setting of severe metabolic abnormalities Continued heparin drip, now switched to Eliquis Echo did not show any wall motion abnormalities Cardiology following (8) Paroxysmal atrial fibrillation with RVR: H/O PAF during hospitalization in 11/2019 On Eliquis, metoprolol tartrate at home (9) Hypertension: On losartan at home, dose now increased to 25 bid, now started on 50 mg daily since 03/27 resumed losartan after resolution of CHIVO (10) Bipolar 1 disorder: On quetiapine, sertraline at home Psychiatry also consulted, given bipolar d/o and medication noncompliance Dispo - downgraded from ICU to PCU, now to Med/Surg, pt resides at [facility] Plan to discharge back to [facility] Total Time Total Time Spent Total Time Spent (In Minutes): 35 Total Time Includes: Examination of the Patient, Discharge Planning and M edication Reconciliation Discharge Plan Discharge Items Patient Disposition: Trans Resident Long-Term Care Reason For Visit: UNRESPONSIVE,DKA Discharge Diagnosis: DKA Unresponsive, required intubation Elevated troponin, demand ischemia, due to above CHIVO, metabolic acidosis, electrolyte abnormalities Activity: Per Instructions section Non-emergency contact: Primary Care Provider Call non-emergency contact if: you have any medication questions and your symptoms worsen Follow-up/Referrals: PHUONG CONN [Primary Care Provider] - Diet: Carb Count or DM1 Addtl Attending Provider Instructions: As discussed, it is very important that you take your insulin. Your blood sugars became very high and that is why you became very sick and ended up in the hospital. If you do not use your insulin, your blood sugars will be very high again and you will become sick again. Your losartan was increased to 50 mg daily. You may also benefit from taking aspirin and pantoprazole. Discuss this with your primary care physician and decide on further use. Addtl Highway Engineer Provider Instructions: OUTPATIENT ANTIDIABETIC REGIMEN: Lantus 18 units Q PM Novolog 10 units BID w/ meals A1c = 10.9% 03/22/20 Pending Studies at Discharge: No Stand-Alone Forms: My [facility] Skilled Items Patient informed of condition?: Yes DNR: No Discharge Level of Care: Other Communicable Disease: No Discharge Prognosis: Stable Lines: None Urinary Catheter: No Medications and DC Order Prescriptions: New losartan 50 mg Tablet 50 mg PO QAM 30 Days Qty: 30 RF: 0 aspirin [Aspirin Low Dose] 81 mg tablet,delayed release (DR/EC) 81 mg PO DAILY Qty: 30 RF: 0 pantoprazole 40 mg Tablet,Delayed Release (Dr/Ec) 40 mg PO DAILY 30 Days Qty: 30 RF: 0 Continued atorvastatin 10 mg tablet 10 mg PO DAILY RF: 0 insulin aspart U-100 [Novolog U-100 Insulin aspart] 100 unit/mL solution 10 unit subcut BID RF: 0 Lantus U-100 Insulin 100 unit/mL solution 18 units SQ QPM RF: 0 cholecalciferol (vitamin D3) 25 mcg (1,000 unit) Capsule 1,000 unit PO DAILY RF: 0 Eliquis 5 mg Tablet 5 mg PO BID Qty: 60 RF: 0 metoprolol tartrate 25 mg Tablet 25 mg PO BID Qty: 60 RF: 0 sertraline 50 mg Tablet 50 mg PO HS Qty: 30 RF: 0 quetiapine 25 mg tablet 12.5 mg PO BID Qty: 20 RF: 0 quetiapine 25 mg tablet 25 mg PO HS Qty: 20 RF: 0 Discontinued losartan 25 mg Tablet 25 mg PO QAM Qty: 30 RF: 0 Discharge Orders: Discharge Order (Routine); Ordered 03/30/20 Ordered By: Masoud Cobb Admission Data Admit Date/Time: 03/21/20 16:50 Attending Provider: Masoud Cobb Admit Provider: Zain Kim Primary Care Provider: PHUONG CONN Other Providers: Keisha Mitchell I. ; Zain Kim ; Suresh Mena ; Trudy Ballard
== END 2020-03-30 11:42 | DRG 637 ==
LOC: ED 14:23 → 1E 16:50 → SUATTDRO 16:50 → 1E 17:34 → 2S 03-24 16:32 → 3N 03-27 15:20

== ENCOUNTER 2020-04-21 08:43 | Inpatient (IN) ==
--- NOTE | 2020-04-21 09:04 | Emergency Department Note ---
Impression & Plan DKA (diabetic ketoacidoses), Lactic acid acidosis, CHIVO (acute kidney injury), Paroxysmal A-fib, Aspiration into airway ED Provider Note NAME: JB MELTON AGE: 69 SEX: M ARRIVES VIA: Ambulance INFORMANT: Patient, ED PROVIDER(S): Lamonte Ventura MD CHIEF COMPLAINT: Hyperglycemia, nausea/vomiting. PLAN: Disposition: Admit MEDICAL DECISION MAKING: The patient is a 69-year-old gentleman with a past medical history of insulin-de pendent type 1 diabetes, bipolar disorder, hypertension, hyperlipidemia with history of medication noncompliance and DKA admitted to [facility] from 03/21-03/30 for obtundation in the setting of DKA where he required intubation, who presents emergency department today from [facility] with elevated blood sugars where [facility] facility report he has been refusing insulin again. Of note he also had been hospitalized in November 2019 4 COVID-19 and new atrial fibrillation. On arrival the patient is ill-appearing, uncomfortable but no acute distress, afebrile with stable vital signs. EKG without overt acute ischemia. Chest x-ray with bibasilar opacities which are suspicious for aspiration given the patient's nausea and vomiting on arrival where he may have aspirated when he had his mask on. WBC 19 K. H/H 12.5/40, improved from prior range of values. Platelets within normal limits. VBG with mild acidemia at 7.24 and chemistry with anion gap metabolic acidosis with anion gap of 20 and bicarb of 16. He has mild acute on chronic renal insufficiency with creatinine of 1.7 where most recently he was within normal limits. Sodium is 135 however given his hyperglycemia of 690 corrects to 144. Lactic acid is 4.3. There is slight elevation of AST and ALT at 38 and 86, respectively, nonspecific. Troponin negative/undetectable. Beta hydroxybutyrate is 62. Procalcitonin 1.8. The patient was treated empirically with broad-spectrum antibiotics with Zosyn and vancomycin, given his comorbidities and concern for aspiration. Given GI sx, CT of abdomen pelvis ordered and this was negative for acute process. CT of the head ordered given the patient's drowsiness in the setting of being on Eliquis and is pending. Case was discussed with Reginald Pardo, with [facility] hospital[facility] who will evaluate the patient for admission. COVID-19 PCR ordered per admitting team request given his history of COVID-19 in December and this was negative. Triage Nursing notes reviewed and agree them. Additional history obtained from EMS. Prior medical records reviewed Vital Signs: reviewed and remarkable for no significant abnormalities Differential diagnosis: Sepsis, UTI, pneumonia, metabolic, electrolyte abnormalities, cardiac sources, intracerebral event, toxicologic, neurologic, as well as other pathologies. ER treatment provided: See below. Diagnostics interpreted by me: ECG: None Cardiac Monitoring: An order for continuous cardiac monitoring was placed and demonstrated xx Laboratory studies: See below Imaging studies: R chest 1V portable CLINICAL HISTORY: SEPSIS COMPARISON STUDY: Chest radiograph March 23, 2020. FINDINGS: There is no pneumothorax or pleural effusion. Old mid shaft left clavicular fracture is noted. There may be calcification within the left rotator cuff. Old right rib fractures are noted. There is no evidence for pulmonary edema. Cardiac size is normal. Mediastinal contours are unremarkable. Mild bibasilar opacities are present, greater on the left. IMPRESSION: Mild bibasilar opacities. Atelectasis is favored although an infectious process could appear similar. ABDOMEN AND PELVIS CT WITHOUT CONTRAST CT DOSE: 1116.07 mGy.cm HISTORY: Acute generalized abdominal pain with nausea and vomiting. Diabetic ketoacidosis. dka abd pain n/v TECHNIQUE: Multiaxial CT images of the abdomen and pelvis were performed without contrast. A dose lowering technique was utilized adhering to the principles of ALARA. COMPARISON STUDY: CT abdomen and pelvis 03/21/2020 FINDINGS: Resolution of the trace pleural effusions. Respiratory motion artifact limits evaluation of the lung bases. There is no pneumatosis or pneumoperitoneum. Imaged inferior cardiac chambers are upper limits of normal in size. Coronary artery calcifications. Unremarkable spleen and left adrenal gland. 1.2 cm thickening versus lesion of the right adrenal gland. Moderate generalized pancreatic atrophy. Unremarkable liver. Mildly contracted gallbladder. No biliary ductal dilation. Renal arterial calcifications are noted bilaterally. No hydronephrosis or ureteral calculi. Mild urinary bladder distention. Prostamegaly. Calcifications of the vas deferens. No aortic aneurysm. Retroaortic left renal vein. No adenopathy. There is no bowel obstruction or bowel wall thickening. Mild to moderate fecal retention. The visualized appendix appears noninflamed. Tiny fat filled periumbilical hernia. Unremarkable soft tissues. Gynecomastia. Degenerative changes of the spine, pelvis and hips. Healed remote fractures of the bilateral inferior pubic rami. Unchanged L4 compression deformity with 1.8 cm lucent lesio n involving the posterior aspect of the vertebral body body. This results in thinning of the posterior cortex without retropulsion. 7 mm lucent focus involves the right iliac weighing on image 292 series 5. There is a questioned lucent lesion of the right iliac wing on image 33 series 5. Bilateral SI joint bolts. Healed remote fracture deformity of the right iliac wing. Healed remote fracture of the posterior right ninth and 10th ribs. Vertebral body hemangioma at T11. IMPRESSION: 1. No bowel obstruction or bowel wall thickening. Noninflamed appendix. 2. Mild urinary bladder distention with prostamegaly. 3. Unchanged L4 compression deformity with 1.8 cm lucent focus involving the posterior aspect of the vertebral body resulting in posterior cortical thinning raising the possibility of a pathologic fracture without retropulsion. Additionally, there is a subcentimeter lucent lesion involving the right iliac wing. Follow-up oncologic consultation with skeletal survey radiographs jose mmended. 4. Additional findings as above. Consultation(s): Case was discussed with Reginald Pardo, with [facility] who will evaluate the patient for admission. HPI: The patient is a 69-year-old gentleman with a past medical history of insulin-dependent type 1 diabetes, bipolar disorder, hypertension, hyperlip idemia with history of medication noncompliance and DKA admitted to [facility] from 03/21-03/30 for obtundation in the setting of DKA where he required intubation, who presents emergency department today from [facility] with elevated blood sugars where [facility] facility report he has been refusing insulin again. Of note he also had been hospitalized in November 2019 4 COVID-19 and new atrial fibrillation. ROS: See above HPI for pertinent positives & negatives. A total of 10 systems reviewed and were otherwise negative. PAST MEDICAL HISTORY:See Below PAST SURGICAL HISTORY:See Below FAMILY HISTORY:See Below SOCIAL HISTORY:See Below HOME MEDICATIONS:See Below ALLERGIES:See Below VITALS:See Below PHYSICAL EXAMINATION: GENERAL: Awake, drowsy but alert, uncomfortable/ill-appearing, in no distress HENT: Normocephalic, atraumatic. Oropharynx with dry mucous membranes and otherwise unremarkable. EYES: Normal conjunctiva. Sclera non-icteric. NECK: Supple. No nuchal rigidity. FROM. No JVD. RESPIRATORY: Clear to auscultation. CARDIAC: Regular rate, normal rhythm. Extremities warm and well perfused. Pulses equal. ABDOMEN: Soft, non-distended. No tenderness to palpation. No rebound or guarding. No masses. RECTAL: Deferred. MUSCULOSKELETAL: Chest examination reveals no tenderness. The back is symmetrical on inspection without obvious abnormality. There is no CVA tenderness to palpation. No joint edema. LOWER EXTREMITIES: Right lower extremity without edema, tenderness or discoloration. Left lower extremity with BKA. NEURO: Normal sensorium. No sensory or motor deficits noted. SKIN: No rash or jaundice noted. ED COURSE: Critical Care: I have personally spent greater than 95 minutes of critical care time in the direct management of this patient. This includes bedside care, interpretation of diagnostic studies, and testing, discussion with consultants, patient, and family members, and other required patient management activities. This 95 minutes is in excess of all separately billable procedures. Lamonte Ventura MD Past Med/Surg History Medical History Bipolar 1 disorder Cognitive disorder COVID-19 Depression Diabetes mellitus type 1 with complications HTN (hypertension) Paroxysmal A-fib Status post amputation of toe of left foot Vitamin D deficiency Surgical History Status post below-knee amputation of left lower extremity Family History Other Family history unobtainable due to patient's condition Social History Smoking Status: Never smoker Hx Alcohol Use: No (unknown) Preferred Language: Spanish Communication Ability: Effective Grades 9 Through 12 Teacher Required: No Beliefs That Will Affect Care: None marital status: Single Current Living Situation: Prison Current Living Situation Comment: [facility] Other Information That Helps Us Care for You: No Feels Safe at Home: Yes Safety Concerns: Feels Safe At This Time Assistive Devices: None Allergies Allergies Allergy/AdvReac Type Severity Reaction Status Date / Time No Known Allergies Allergy Unverified 04/21/20 09:30 Home Meds Home Medications Medication Instructions Recorded Confirmed cholecalciferol (vitamin D3) 1,000 unit PO QAM 12/10/19 04/21/20 Lantus U-100 Insulin 12 unit SUBCUT DAILY 03/21/20 04/21/20 atorvastatin 10 mg PO HS 03/21/20 04/21/20 insulin aspart U-100 [Novolog 3 unit SUBCUT DAILYBL 03/21/20 04/21/20 U-100 Insulin aspart] acetaminophen [Tylenol] 650 mg PO Q6H PRN 04/21/20 04/21/20 aspirin [Aspirin Low Dose] 81 mg PO QAM 04/21/20 04/21/20 calcium carbonate [Oysco-500] 500 mg PO QAM 04/21/20 04/21/20 dextrose [Insta-Glucose] 1 ea PO UD PRN 04/21/20 04/21/20 insulin aspart U-100 [Novolog 5 unit SUBCUT DAILYBB 04/21/20 04/21/20 U-100 Insulin aspart] insulin aspart U-100 [Novolog 5 unit SUBCUT DAILYBD 04/21/20 04/21/20 U-100 Insulin aspart] insulin glargine [Lantus Solostar 20 unit SUBCUT QPM 04/21/20 04/21/20 U-100 Insulin] pantoprazole 40 mg PO QAM 04/21/20 04/21/20 sennosides [senna] 8.6 mg PO QAM 04/21/20 04/21/20 Previous Rx's Medication Instructions Recorded Eliquis 5 mg PO BID #60 tab 01/02/20 metoprolol tartrate 25 mg PO BID #60 tab 01/02/20 quetiapine 12.5 mg PO BID #20 tab 01/02/20 quetiapine 25 mg PO HS #20 tab 01/02/20 sertraline 50 mg PO HS #30 tab 01/02/20 losartan 50 mg PO QAM 30 Days #30 tab 03/30/20 Results & Data (ED) Vital Signs Vital Signs - 24 hr 04/21/20 08:56 04/21/20 09:53 04/21/20 10:39 Temperature 36.9 C Temperature Source Oral Pulse Rate 89 Pulse Rate [Apical] 86 Pulse Rate from SpO2 Sensor Respiratory Rate 16 20 Blood Pressure 123/89 Blood Pressure [Right Arm] 120/99 Blood Pressure Mean 100 Blood Pressure Mean [Right Arm] 106 Pulse Oximetry 96 96 99 Oxygen Delivery Method Room Air Room Air Room Air Sepsis Recent Fever Within 48 Hours No Sepsis New/Unexplained Change in Mental Status N/A Sepsis Action Taken by Nursing No Action Required 04/21/20 11:51 04/21/20 12:50 04/21/20 13:43 Temperature Temperature Source Pulse Rate Pulse Rate [Apical] 88 90 86 Pulse Rate from SpO2 Sensor Respiratory Rate 18 18 16 Blood Pressure Blood Pressure [Right Arm] 117/88 122/87 90/57 L Blood Pressure Mean Blood Pressure Mean [Right Arm] 97 98 68 Pulse Oximetry 99 99 98 Oxygen Delivery Method Room Air Room Air Room Air Sepsis Recent Fever Within 48 Hours Sepsis New/Unexplained Change in Mental Status Sepsis Action Taken by Nursing 04/21/20 14:01 04/21/20 14:45 Temperature 36.8 C Temperature Source Axillary Pulse Rate 85 Pulse Rate [Apical] 84 Pulse Rate from SpO2 Sensor 85 Respiratory Rate 17 16 Blood Pressure 113/46 L Blood Pressure [Right Arm] 149/44 H Blood Pressure Mean 58 Blood Pressure Mean [Right Arm] 79 Pulse Oximetry 99 98 Oxygen Delivery Method Room Air Sepsis Recent Fever Within 48 Hours Sepsis New/Unexplained Change in Mental Status Sepsis Action Taken by Nursing Laboratory Data Attestation: I reviewed the patient's lab results. Result diagrams: 04/21/20 09:15 04/21/20 17:52 Lab Results 04/21/20 04/21/20 04/21/20 Range/Units 09:15 09:15 09:15 WBC 19.18 H (4.8-10.8) K/uL RBC 4.29 L (4.7-6.1) M/uL Hgb 12.5 L (14.0-18.0) g/dL POC Hgb (14.0-18.0) g/dl Hct 40.1 L (42-52) % POC Hct (42-52) % MCV 93.5 (80-100) fL MCH 29.1 (25-34) pg MCHC 31.2 L (32-36) g/dL RDW Std Deviation 49.7 H (36.4-46.3) fL RDW Coeff of Jace 14.7 H (11.5-14.5) % Plt Count 298 (130-400) K/uL MPV 10.5 H (7.4-10.4) fL Immature Gran % (Auto) 0.3 % Neut % (Auto) 84.0 % Lymph % (Auto) 9.6 % [place] % (Auto) 5.9 % Eos % (Auto) 0.1 % Baso % (Auto) 0.1 % Neut # (Auto) 16.11 H (1.4-6.5) K/uL Lymph # (Auto) 1.85 (1.2-3.4) K/uL [place] # (Auto) 1.13 H (0.11-0.59) K/uL Eos # (Auto) 0.01 (0-0.5) K/uL Baso # (Auto) 0.02 (0-0.2) K/uL Immature Gran # (Auto) 0.06 H (0.00-0.02) K/uL PT 10.1 (9.0-12.0) Seconds INR 1.0 (0.9-1.1) APTT < 20.0 L (21.0-31.0) Seconds PTT Ratio 0.7 VBG pH (7.36-7.41) VBG pCO2 (38-50) mmHg VBG pO2 mmHg VBG HCO3 mmol/L VBG O2 Saturation % VBG Base Excess mEq/L Barometric Pressure mm/Hg POC Sodium (135-144) mmol/L Sodium 135 L (136-145) mmol/L POC Potassium (3.3-5.0) mmol/L Potassium 5.0 (3.5-5.1) mmol/L POC Chloride (101-112) mmol/L Chloride 99 (98-107) mmol/L Carbon Dioxide 16 L (21-32) mmol/L POC Total CO2 (24-31) mmol/L Anion Gap 20.0 H (3-11) POC Anion Gap (16-25) mmol/L POC BUN (7-18) mg/dl BUN 39 H (7-18) mg/dl Creatinine 1.79 H (0.6-1.4) mg/dl POC Creatinine (0.6-1.3) mg/dl Est Cr Clr Drug Dosing Not Reportable Est GFR ( Amer) 44.1 Est GFR (Non-Af Amer) 38.1 BUN/Creatinine Ratio 21.8 H (10-20) Glucose 691 H* (70-99) mg/dl POC Glucose (70-99) mg/dl POC Glucose (other) (70-99) mg/dl Lactate (0.4-2.0) mmol/L Calcium 9.7 (8.5-10.1) mg/dl POC Ioniz Calcium Juan (1.12-1.32) mmol/l Phosphorus 6.5 H (2.5-4.9) mg/dl Magnesium 2.6 H (1.8-2.4) mg/dl Total Bilirubin 0.5 (0.2-1) mg/dl Direct Bilirubin 0.1 (0-0.2) mg/dl AST 38 H (15-37) U/L ALT 86 H (12-78) U/L Alkaline Phosphatase 166 H (45-117) U/L Troponin I < 0.015 (0-0.045) ng/ml Total Protein 7.9 (6.4-8.2) gm/dl Albumin 3.6 (3.4-5.0) gm/dl Globulin 4.3 H (2.5-4.0) gm/dl Albumin/Globulin Ratio 0.8 L (0.9-2) Lipase 100 (73-393) U/L Beta-Hydroxybutyric Acd 62.06 H (0.2-2.81) mg/dl Procalcitonin (0-0.5) ng/ml COVID-19 Eval Order COVID-19 PCR (Negative) 04/21/20 04/21/20 04/21/20 Range/Units 09:15 09:30 09:56 WBC (4.8-10.8) K/uL RBC (4.7-6.1) M/uL Hgb (14.0-18.0) g/dL POC Hgb 13.6 L (14.0-18.0) g/dl Hct (42-52) % POC Hct 40 L (42-52) % MCV (80-100) fL MCH (25-34) pg MCHC (32-36) g/dL RDW Std Deviation (36.4-46.3) fL RDW Coeff of Jace (11.5-14.5) % Plt Count (130-400) K/uL MPV (7.4-10.4) fL Immature Gran % (Auto) % Neut % (Auto) % Lymph % (Auto) % [place] % (Auto) % Eos % (Auto) % Baso % (Auto) % Neut # (Auto) (1.4-6.5) K/uL Lymph # (Auto) (1.2-3.4) K/uL [place] # (Auto) (0.11-0.59) K/uL Eos # (Auto) (0-0.5) K/uL Baso # (Auto) (0-0.2) K/uL Immature Gran # (Auto) (0.00-0.02) K/uL PT (9.0-12.0) Seconds INR (0.9-1.1) APTT (21.0-31.0) Seconds PTT Ratio VBG pH (7.36-7.41) VBG pCO2 (38-50) mmHg VBG pO2 mmHg VBG HCO3 mmol/L VBG O2 Saturation % VBG Base Excess mEq/L Barometric Pressure mm/Hg POC Sodium 135 (135-144) mmol/L Sodium (136-145) mmol/L POC Potassium 4.8 (3.3-5.0) mmol/L Potassium (3.5-5.1) mmol/L POC Chloride 101 (101-112) mmol/L Chloride (98-107) mmol/L Carbon Dioxide (21-32) mmol/L POC Total CO2 14 L (24-31) mmol/L Anion Gap (3-11) POC Anion Gap 26.0 H (16-25) mmol/L POC BUN 37 H (7-18) mg/dl BUN (7-18) mg/dl Creatinine (0.6-1.4) mg/dl POC Creatinine 1.3 (0.6-1.3) mg/dl Est Cr Clr Drug Dosing Est GFR ( Amer) Est GFR (Non-Af Amer) BUN/Creatinine Ratio (10-20) Glucose (70-99) mg/dl POC Glucose (70-99) mg/dl POC Glucose (other) > 700 H* (70-99) mg/dl Lactate 4.3 H* (0.4-2.0) mmol/L Calcium (8.5-10.1) mg/dl POC Ioniz Calcium Juan 1.17 (1.12-1.32) mmol/l Phosphorus (2.5-4.9) mg/dl Magnesium (1.8-2.4) mg/dl Total Bilirubin (0.2-1) mg/dl Direct Bilirubin (0-0.2) mg/dl AST (15-37) U/L ALT (12-78) U/L Alkaline Phosphatase (45-117) U/L Troponin I (0-0.045) ng/ml Total Protein (6.4-8.2) gm/dl Albumin (3.4-5.0) gm/dl Globulin (2.5-4.0) gm/dl Albumin/Globulin Ratio (0.9-2) Lipase (73-393) U/L Beta-Hydroxybutyric Acd (0.2-2.81) mg/dl Procalcitonin 1.82 H (0-0.5) ng/ml COVID-19 Eval Order COVID-19 PCR (Negative) 04/21/20 04/21/20 04/21/20 Range/Units 09:56 11:45 11:45 WBC (4.8-10.8) K/uL RBC (4.7-6.1) M/uL Hgb (14.0-18.0) g/dL POC Hgb (14.0-18.0) g/dl Hct (42-52) % POC Hct (42-52) % MCV (80-100) fL MCH (25-34) pg MCHC (32-36) g/dL RDW Std Deviation (36.4-46.3) fL RDW Coeff of Jace (11.5-14.5) % Plt Count (130-400) K/uL MPV (7.4-10.4) fL Immature Gran % (Auto) % Neut % (Auto) % Lymph % (Auto) % [place] % (Auto) % Eos % (Auto) % Baso % (Auto) % Neut # (Auto) (1.4-6.5) K/uL Lymph # (Auto) (1.2-3.4) K/uL [place] # (Auto) (0.11-0.59) K/uL Eos # (Auto) (0-0.5) K/uL Baso # (Auto) (0-0.2) K/uL Immature Gran # (Auto) (0.00-0.02) K/uL PT (9.0-12.0) Seconds INR (0.9-1.1) APTT (21.0-31.0) Seconds PTT Ratio VBG pH 7.24 L (7.36-7.41) VBG pCO2 41 (38-50) mmHg VBG pO2 37 mmHg VBG HCO3 17 mmol/L VBG O2 Saturation 62.9 % VBG Base Excess -9.6 mEq/L Barometric Pressure 726.3 mm/Hg POC Sodium (135-144) mmol/L Sodium (136-145) mmol/L POC Potassium (3.3-5.0) mmol/L Potassium (3.5-5.1) mmol/L POC Chloride (101-112) mmol/L Chloride (98-107) mmol/L Carbon Dioxide (21-32) mmol/L POC Total CO2 (24-31) mmol/L Anion Gap (3-11) POC Anion Gap (16-25) mmol/L POC BUN (7-18) mg/dl BUN (7-18) mg/dl Creatinine (0.6-1.4) mg/dl POC Creatinine (0.6-1.3) mg/dl Est Cr Clr Drug Dosing Est GFR ( Amer) Est GFR (Non-Af Amer) BUN/Creatinine Ratio (10-20) Glucose (70-99) mg/dl POC Glucose (70-99) mg/dl POC Glucose (other) (70-99) mg/dl Lactate (0.4-2.0) mmol/L Calcium (8.5-10.1) mg/dl POC Ioniz Calcium Juan (1.12-1.32) mmol/l Phosphorus (2.5-4.9) mg/dl Magnesium (1.8-2.4) mg/dl Total Bilirubin (0.2-1) mg/dl Direct Bilirubin (0-0.2) mg/dl AST (15-37) U/L ALT (12-78) U/L Alkaline Phosphatase (45-117) U/L Troponin I (0-0.045) ng/ml Total Protein (6.4-8.2) gm/dl Albumin (3.4-5.0) gm/dl Globulin (2.5-4.0) gm/dl Albumin/Globulin Ratio (0.9-2) Lipase (73-393) U/L Beta-Hydroxybutyric Acd (0.2-2.81) mg/dl Procalcitonin (0-0.5) ng/ml COVID-19 Eval Order Covid19 Done at [facility] COVID-19 PCR NEGATIVE (Negative) 04/21/20 04/21/20 04/21/20 Range/Units 12:08 12:41 13:50 WBC (4.8-10.8) K/uL RBC (4.7-6.1) M/uL Hgb (14.0-18.0) g/dL POC Hgb (14.0-18.0) g/dl Hct (42-52) % POC Hct (42-52) % MCV (80-100) fL MCH (25-34) pg MCHC (32-36) g/dL RDW Std Deviation (36.4-46.3) fL RDW Coeff of Jace (11.5-14.5) % Plt Count (130-400) K/uL MPV (7.4-10.4) fL Immature Gran % (Auto) % Neut % (Auto) % Lymph % (Auto) % [place] % (Auto) % Eos % (Auto) % Baso % (Auto) % Neut # (Auto) (1.4-6.5) K/uL Lymph # (Auto) (1.2-3.4) K/uL [place] # (Auto) (0.11-0.59) K/uL Eos # (Auto) (0-0.5) K/uL Baso # (Auto) (0-0.2) K/uL Immature Gran # (Auto) (0.00-0.02) K/uL PT (9.0-12.0) Seconds INR (0.9-1.1) APTT (21.0-31.0) Seconds PTT Ratio VBG pH (7.36-7.41) VBG pCO2 (38-50) mmHg VBG pO2 mmHg VBG HCO3 mmol/L VBG O2 Saturation % VBG Base Excess mEq/L Barometric Pressure mm/Hg POC Sodium (135-144) mmol/L Sodium 144 D (136-145) mmol/L POC Potassium (3.3-5.0) mmol/L Potassium 3.7 D (3.5-5.1) mmol/L POC Chloride (101-112) mmol/L Chloride 110 H (98-107) mmol/L Carbon Dioxide 23 (21-32) mmol/L POC Total CO2 (24-31) mmol/L Anion Gap 11.0 (3-11) POC Anion Gap (16-25) mmol/L POC BUN (7-18) mg/dl BUN 32 H (7-18) mg/dl Creatinine 1.66 H (0.6-1.4) mg/dl POC Creatinine (0.6-1.3) mg/dl Est Cr Clr Drug Dosing Not Reportable Est GFR ( Amer) 48.4 Est GFR (Non-Af Amer) 41.7 BUN/Creatinine Ratio 19.3 (10-20) Glucose 387 H* (70-99) mg/dl POC Glucose 578 H* (70-99) mg/dl POC Glucose (other) (70-99) mg/dl Lactate 4.6 H* (0.4-2.0) mmol/L Calcium 8.4 L (8.5-10.1) mg/dl POC Ioniz Calcium Juan (1.12-1.32) mmol/l Phosphorus (2.5-4.9) mg/dl Magnesium (1.8-2.4) mg/dl Total Bilirubin (0.2-1) mg/dl Direct Bilirubin (0-0.2) mg/dl AST (15-37) U/L ALT (12-78) U/L Alkaline Phosphatase (45-117) U/L Troponin I (0-0.045) ng/ml Total Protein (6.4-8.2) gm/dl Albumin (3.4-5.0) gm/dl Globulin (2.5-4.0) gm/dl Albumin/Globulin Ratio (0.9-2) Lipase (73-393) U/L Beta-Hydroxybutyric Acd 22.30 H (0.2-2.81) mg/dl Procalcitonin (0-0.5) ng/ml COVID-19 Eval Order COVID-19 PCR (Negative) 10/07/20 10/07/20 Range/Units 13:50 14:35 WBC (4.8-10.8) K/uL RBC (4.7-6.1) M/uL Hgb (14.0-18.0) g/dL POC Hgb (14.0-18.0) g/dl Hct (42-52) % POC Hct (42-52) % MCV (80-100) fL MCH (25-34) pg MCHC (32-36) g/dL RDW Std Deviation (36.4-46.3) fL RDW Coeff of Jace (11.5-14.5) % Plt Count (130-400) K/uL MPV (7.4-10.4) fL Immature Gran % (Auto) % Neut % (Auto) % Lymph % (Auto) % [place] % (Auto) % Eos % (Auto) % Baso % (Auto) % Neut # (Auto) (1.4-6.5) K/uL Lymph # (Auto) (1.2-3.4) K/uL [place] # (Auto) (0.11-0.59) K/uL Eos # (Auto) (0-0.5) K/uL Baso # (Auto) (0-0.2) K/uL Immature Gran # (Auto) (0.00-0.02) K/uL PT (9.0-12.0) Seconds INR (0.9-1.1) APTT (21.0-31.0) Seconds PTT Ratio VBG pH 7.26 L (7.36-7.41) VBG pCO2 47 (38-50) mmHg VBG pO2 28 mmHg VBG HCO3 21 mmol/L VBG O2 Saturation < 60.0 % VBG Base Excess -6.3 mEq/L Barometric Pressure 724.5 mm/Hg POC Sodium (135-144) mmol/L Sodium (136-145) mmol/L POC Potassium (3.3-5.0) mmol/L Potassium (3.5-5.1) mmol/L POC Chloride (101-112) mmol/L Chloride (98-107) mmol/L Carbon Dioxide (21-32) mmol/L POC Total CO2 (24-31) mmol/L Anion Gap (3-11) POC Anion Gap (16-25) mmol/L POC BUN (7-18) mg/dl BUN (7-18) mg/dl Creatinine (0.6-1.4) mg/dl POC Creatinine (0.6-1.3) mg/dl Est Cr Clr Drug Dosing Est GFR ( Amer) Est GFR (Non-Af Amer) BUN/Creatinine Ratio (10-20) Glucose (70-99) mg/dl POC Glucose 416 H* (70-99) mg/dl POC Glucose (other) (70-99) mg/dl Lactate (0.4-2.0) mmol/L Calcium (8.5-10.1) mg/dl POC Ioniz Calcium Juan (1.12-1.32) mmol/l Phosphorus (2.5-4.9) mg/dl Magnesium (1.8-2.4) mg/dl Total Bilirubin (0.2-1) mg/dl Direct Bilirubin (0-0.2) mg/dl AST (15-37) U/L ALT (12-78) U/L Alkaline Phosphatase (45-117) U/L Troponin I (0-0.045) ng/ml Total Protein (6.4-8.2) gm/dl Albumin (3.4-5.0) gm/dl Globulin (2.5-4.0) gm/dl Albumin/Globulin Ratio (0.9-2) Lipase (73-393) U/L Beta-Hydroxybutyric Acd (0.2-2.81) mg/dl Procalcitonin (0-0.5) ng/ml COVID-19 Eval Order COVID-19 PCR (Negative) Administered Medications Apixaban (Apixaban 5 Mg Tablet) 5 mg PO BID AYDEN Stop: 05/21/20 20:59 Last Admin: 04/21/20 21:06 Dose: 5 mg Documented by: [id number] Atorvastatin Calcium (Atorvastatin 10 Mg Tab) 10 mg PO HS AYDEN Stop: 05/21/20 20:59 Last Admin: 04/21/20 21:06 Dose: 10 mg Documented by: [id number] Potassium Chloride/Sodium Chloride (1/2 Nss + 20meq Kcl 1000ml) 20 meq in 1,000 mls @ 125 mls/hr IV .Q8H AYDEN Stop: 05/21/20 12:14 Last Infusion: 04/22/20 00:10 Dose: 125 mls/hr Documented by: [id number] Admin: 04/21/20 21:09 Dose: 250 mls/hr Documented by: [id number] Infusion: 04/21/20 20:58 Dose: 250 mls/hr Documented by: [id number] Admin: 04/21/20 18:33 Dose: Not Given Documented by: [id number] Admin: 04/21/20 16:58 Dose: 250 mls/hr Documented by: [id number] Famotidine 20 mg/ Syringe 5 mls @ 2.5 mls/min IV Q12H AYDEN Stop: 05/21/20 20:59 Last Admin: 04/21/20 21:01 Dose: 2.5 mls/min Documented by: [id number] Sodium Phosphate 21 mmol/ (Sodium Chloride) 507 mls @ 88 mls/hr IV ONE ONE Stop: 04/22/20 01:00 Last Admin: 04/21/20 19:28 Dose: 88 mls/hr Documented by: [id number] Insulin Aspart (Insulin Aspart 100 Units/Ml 3 Ml Pen) 0 units SC Q4 AYDEN Stop: 05/21/20 19:59 Last Admin: 04/22/20 00:12 Dose: Not Given Documented by: [id number] Cosigned by: [id number] Admin: 04/21/20 20:08 Dose: 2 units Documented by: [id number] Cosigned by: [id number] Metoprolol Tartrate (Metoprolol Tartrate 25 Mg Tab) 25 mg PO BID AYDEN Stop: 05/21/20 20:59 Last Admin: 04/21/20 21:08 Dose: 25 mg Documented by: [id number] Quetiapine Fumarate (Quetiapine Fumarate 25 Mg Tablet) 12.5 mg PO BID AYDEN Stop: 05/21/20 20:59 Last Admin: 04/21/20 21:08 Dose: 12.5 mg Documented by: [id number] Quetiapine Fumarate (Quetiapine Fumarate 25 Mg Tablet) 25 mg PO HS AYDEN Stop: 05/21/20 20:59 Last Admin: 04/21/20 21:07 Dose: 25 mg Documented by: [id number] Sertraline HCl (Sertraline Hcl 50 Mg Tablet) 50 mg PO HS AYDEN Stop: 05/21/20 20:59 Last Admin: 04/21/20 21:08 Dose: 50 mg Documented by: [id number] Discontinued Medications Sodium Chloride (Nss 1000ml) 2,000 mls @ 999 mls/hr IV .Q2H1M ONE Stop: 04/21/20 11:09 Last Infusion: 04/21/20 14:13 Dose: 0 mls/hr Documented by: [id number] Admin: 04/21/20 10:04 Dose: 999 mls/hr Documented by: [id number] Famotidine (Pepcid 20mg Iv Push) 20 mg in 5 mls @ 2.5 mls/min IV NOW STA Stop: 04/21/20 09:11 Last Admin: 04/21/20 10:04 Dose: 2.5 mls/min Documented by: [id number] Piperacillin Sod/Tazobactam Sod (Zosyn) 4.5 gm in 120 mls @ 240 mls/hr IV NOW ONE Stop: 04/21/20 10:48 Last Infusion: 04/21/20 14:14 Dose: 0 mls/hr Documented by: [id number] Admin: 04/21/20 10:49 Dose: 240 mls/hr Documented by: [id number] Vancomycin HCl 1,250 mg/ (Sodium Chloride) 525 mls @ 200 mls/hr IV NOW ONE Stop: 04/21/20 12:56 Last Infusion: 04/21/20 15:42 Dose: 0 mls/hr Documented by: [id number] Admin: 04/21/20 11:42 Dose: 200 mls/hr Documented by: [id number] Insulin Human Regular 250 (units/ Sodium Chloride) 250 mls @ 0 mls/hr IV .Q0M [facility]; Protocol Stop: 05/21/20 10:29 Last Titration: 04/21/20 21:44 Dose: 0 units/hr, 0 mls/hr Documented by: [id number] Cosigned by: [id number] Titration: 04/21/20 19:27 Dose: 0 units/hr, 0 mls/hr Documented by: [id number] Cosigned by: [id number] Titration: 04/21/20 19:07 Dose: 2 units/hr, 2 mls/hr Documented by: [id number] Cosigned by: [id number] Titration: 04/21/20 18:37 Dose: 2 units/hr, 2 mls/hr Documented by: [id number] Cosigned by: [id number] Titration: 04/21/20 18:34 Dose: 6.1 units/hr, 6.1 mls/hr Documented by: [id number] Cosigned by: [id number] Titration: 04/21/20 18:01 Dose: 0 units/hr, 0 mls/hr Documented by: [id number] Cosigned by: [id number] Titration: 04/21/20 16:51 Dose: 10.1 units/hr, 10.1 mls/hr Documented by: [id number] Cosigned by: [id number] Titration: 04/21/20 14:41 Dose: 8.4 units/hr, 8.4 mls/hr Documented by: [id number] Admin: 04/21/20 11:43 Dose: 6 units/hr, 6 mls/hr Documented by: [id number] Cosigned by: [id number] Insulin Human Regular 6 units/ (Syringe) 6 mls @ 30 mls/min IV NOW ONE Stop: 04/21/20 11:01 Last Admin: 04/21/20 11:42 Dose: 30 mls/min Documented by: [id number] Cosigned by: [id number] Prochlorperazine (Compazine) 2 mls @ 1 mls/min IV ONE ONE Stop: 04/21/20 12:29 Last Admin: 04/21/20 12:43 Dose: 1 mls/min Documented by: [id number] Potassium Chloride (K Mickey / Wtr) 20 meq in 100 mls @ 50 mls/hr IV Q2H AYDEN Stop: 04/21/20 23:14 Last Infusion: 04/21/20 23:09 Dose: 0 mls/hr Documented by: [id number] Admin: 04/21/20 21:09 Dose: 50 mls/hr Documented by: [id number] Infusion: 04/21/20 21:09 Dose: 50 mls/hr Documented by: [id number] Admin: 04/21/20 19:28 Dose: 50 mls/hr Documented by: [id number] Influenza Virus Vaccine (Influenza Vaccine High Dose 65+ 0.5 Ml Syr) 0.5 ml IM .ONCE ONE Stop: 04/21/20 14:51 Last Admin: 04/21/20 16:00 Dose: Not Given Documented by: [id number] Insulin Aspart (Insulin Aspart 100 Units/Ml 3 Ml Pen) 0 units SC ACHS AYDEN Stop: 05/21/20 16:29 Last Admin: 04/21/20 16:53 Dose: Not Given Documented by: [id number] Cosigned by: [id number] Insulin Glargine (Insulin Glargine Solostar 100 Units/Ml 3 Ml Pen) 10 units SC ONE ONE Stop: 04/21/20 18:46 Last Admin: 04/21/20 19:26 Dose: 10 units Documented by: [id number] Cosigned by: [id number] Lidocaine HCl (Lidocaine Hcl 1% 20 Ml Vial) Confirm Administered Dose 20 ml .ROUTE .STK-MED ONE Stop: 04/21/20 17:30 Last Admin: 04/21/20 18:34 Dose: 20 ml Documented by: [id number] Miscellaneous (Dka Goal Range 150-250 Mg/Dl) 1 ea N/A ONE ONE Stop: 04/21/20 10:27 Last Admin: 04/21/20 11:45 Dose: 1 ea Documented by: [id number] Miscellaneous (Pending D5 1/2ns+20meq Kcl Ivf) 1 ea N/A Q2H AYDEN Stop: 05/21/20 15:39 Last Admin: 04/21/20 19:22 Dose: Not Given Documented by: [id number] Admin: 04/21/20 18:38 Dose: Not Given Documented by: [id number] Miscellaneous Information (Nursing To Pharmacy Communication) 1 ea N/A TODAY AYDEN Stop: 04/21/20 21:00 Last Admin: 04/21/20 19:27 Dose: 1 ea Documented by: [id number] Ondansetron HCl (Ondansetron Inj 2 Mg/Ml 2 Ml Vial) 4 mg IV NOW STA Stop: 04/21/20 09:11 Last Admin: 04/21/20 10:04 Dose: 4 mg Documented by: [id number] Discharge Plan Visit Data Chief Complaint: Hyperglycemia ED Provider: Lamonte Ventura Discharge Problem: DKA (diabetic ketoacidoses), Lactic acid acidosis, CHIVO (acute kidney injury), Paroxysmal A-fib, Aspiration into airway Patient Disposition: Admitted As Inpatient Discharge Instructions Interventions: ED Discharge Assessment Last Done: 04/21/20 14:39 Discharge Problem: DKA (diabetic ketoacidoses) Qualifiers: Diabetes mellitus type: type 1 Diabetes mellitus complication detail: without coma Qualified Code(s): E10.10 - Type 1 diabetes mellitus with ketoacidosis without coma
[2020-04-21] MEDS ORDERED: SODIUM CHLORIDE 0.9% 1000ML 2,000 ML IV ONE (09:09)
[2020-04-21] MEDS ORDERED: FAMOTIDINE 20MG IV PUSH 20 MG/5 ML SYR IV STA (09:10)
[2020-04-21] MEDS ORDERED: ONDANSETRON INJ 2 MG/ML 2 ML VIAL IV STA (09:10)
[2020-04-21 09:28] LABS: Basophils # (auto) 0.02 K/uL (0-0.2); Basophils % (auto) 0.1 %; Eosinophils # (auto) 0.01 K/uL (0-0.5); Eosinophils % (auto) 0.1 %; Hematocrit (blood only) 40.1 % (42-52); Hemoglobin 12.5 g/dL (14.0-18.0); Immature Granulocytes # (auto) 0.06 K/uL (0.00-0.02); Immature Granulocytes % (auto) 0.3 %; Lymphocytes # (auto) 1.85 K/uL (1.2-3.4); Lymphocytes % (auto) 9.6 %; Mean Corpuscular Hemoglobin 29.1 pg (25-34); Mean Corpuscular Hgb Conc 31.2 g/dL (32-36); Mean Corpuscular Volume 93.5 fL (80-100); Mean Platelet Volume 10.5 fL (7.4-10.4); Monocytes # (auto) 1.13 K/uL (0.11-0.59); Monocytes % (auto) 5.9 %; Neutrophils # (auto) 16.11 K/uL (1.4-6.5); Platelet Count 298 K/uL (130-400); RDW Coefficient of Variation 14.7 % (11.5-14.5); RDW Standard Deviation 49.7 fL (36.4-46.3); Red Blood Count 4.29 M/uL (4.7-6.1); White Blood Count 19.18 K/uL (4.8-10.8)
[2020-04-21 09:39] LABS: Prothrombin Time 10.1 Seconds (9.0-12.0)
[2020-04-21 09:43] LABS: iSTAT Blood Urea Nitrogen 37 mg/dl (7-18); iSTAT Carbon Dioxide 14 mmol/L (24-31); iSTAT Chloride 101 mmol/L (101-112); iSTAT Creatinine 1.3 mg/dl (0.6-1.3); iSTAT Glucose > 700 mg/dl (70-99); iSTAT Hematocrit 40 % (42-52); iSTAT Hemoglobin 13.6 g/dl (14.0-18.0); iSTAT Ionized Calcium 1.17 mmol/l (1.12-1.32); iSTAT Potassium 4.8 mmol/L (3.3-5.0); iSTAT Sodium 135 mmol/L (135-144)
[2020-04-21 09:44] LABS: Partial Thromboplastin Ratio 0.7; Partial Thromboplastin Time < 20.0 Seconds (21.0-31.0)
--- NOTE | 2020-04-21 10:11 | XRay Report ---
XR chest 1V portable CLINICAL HISTORY: SEPSIS COMPARISON STUDY: Chest radiograph March 23, 2020. FINDINGS: There is no pneumothorax or pleural effusion. Old mid shaft left clavicular fracture is not ed. There may be calcification within the left rotator cuff. Old right rib fractures are noted. There is no evidence for pulmonary edema. Cardiac size is normal. Mediastinal contours are unremarkable. M ild bibasilar opacities are present, greater on the left. IMPRESSION: Mild bibasilar opacities. Atelectasis is favored although an infectious process could ap pear similar. ACT 112: Negative or not required by law. Electronically signed by: Babar Vaca M.D. 04/21/2020 10:10 AM
[2020-04-21 10:15] LABS: Alanine Aminotransferase 86 U/L (12-78); Albumin Globulin Ratio 0.8 (0.9-2); Albumin Level 3.6 gm/dl (3.4-5.0); Alkaline Phosphatase 166 U/L (45-117); Aspartate Aminotransferase 38 U/L (15-37); BUN Creatinine Ratio 21.8 (10-20); Bilirubin,Total 0.5 mg/dl (0.2-1); Blood Urea Nitrogen 39 mg/dl (7-18); Calcium 9.7 mg/dl (8.5-10.1); Carbon Dioxide 16 mmol/L (21-32); Chloride 99 mmol/L (98-107); Est GFR (African American) 44.1; Est GFR (Non-African American) 38.1; Globulin 4.3 gm/dl (2.5-4.0); Glucose 691 mg/dl (70-99); Lipase 100 U/L (73-393); Magnesium 2.6 mg/dl (1.8-2.4); Phosphorus 6.5 mg/dl (2.5-4.9); Sodium 135 mmol/L (136-145); Total Protein 7.9 gm/dl (6.4-8.2); Troponin I < 0.015 ng/ml (0-0.045)
[2020-04-21] MEDS ORDERED: VANCOMYCIN HCL 1,250 MG in SODIUM CHLORIDE 0.9% 500 ML IV ONE (10:19)
[2020-04-21] MEDS ORDERED: PIPERACILL/TAZOBAC CONSULT ACTIVE PRN (10:19)
[2020-04-21] MEDS ORDERED: VANCOMYCIN CONSULT ACTIVE PRN (10:19)
[2020-04-21] MEDS ORDERED: PIPERACILLIN/TAZOBACTAM 4.5 GM/120 ML BAG IV ONE (10:19)
[2020-04-21] MEDS ORDERED: DKA GOAL RANGE 150-250 mg/dl ONE ×2 (10:26→15:40)
[2020-04-21] MEDS ORDERED: PENDING 1/2NSS+20mEq KCL IVF SCH (10:30)
[2020-04-21] MEDS ORDERED: INSULIN REGULAR 250 UNITS in SODIUM CHLORIDE 0.9% 247.5 ML IV SCH (10:30)
[2020-04-21 10:35] LABS: Base Excess VBG -9.6 mEq/L; Oxygen Saturation VBG 62.9 %; pH VBG 7.24 (7.36-7.41)
[2020-04-21 10:39] LABS: Bilirubin Direct 0.1 mg/dl (0-0.2)
[2020-04-21 10:53] LABS: Beta-Hydroxybutyrate 62.06 mg/dl (0.2-2.81)
[2020-04-21] MEDS ORDERED: INSULIN HUMAN REGULAR PER UNIT 6 UNITS in SYRINGE 5.94 ML IV ONE (11:00)
--- NOTE | 2020-04-21 11:54 | Electrocardiogram Report ---
Test Reason : Blood Pressure : / mmHG Vent. Rate : 088 BPM Atrial Rate : 088 BPM P-R Int : 150 ms QRS Dur : 100 ms QT Int : 406 ms P-R-T Axes : 073 064 055 degrees QTc Int : 491 ms Poor data quality, interpretation may be adversely affected Normal sinus rhythm Prolonged QT Abnormal ECG When compared with ECG of 24-MAR-2020 12:50, No significant change was found Confirmed by Gaston Novak ([id number]) on 04/21/2020 11:53:45 AM Referred By: ER Confirmed By:Rahat Novak
--- NOTE | 2020-04-21 12:05 | CT Scan Report ---
ABDOMEN AND PELVIS CT WITHOUT CONTRAST CT DOSE: 1116.07 mGy.cm HISTORY: Acute generalized abdominal pain with nausea and vomiting. Diabetic ketoacidosis. dka abd p ain n/v TECHNIQUE: Multiaxial CT images of the abdomen and pelvis were performed without contrast. A dose lo wering technique was utilized adhering to the principles of ALARA. COMPARISON STUDY: CT abdomen and pelvis 03/21/2020 FINDINGS: Resolution of the trace pleural effusions. Respiratory motion artifact limits evaluation of the lung bases. There is no pneumatosis or pneumoperitoneum. Imaged inferior cardiac chambers are up per limits of normal in size. Coronary artery calcifications. Unremarkable spleen and left adrenal gl and. 1.2 cm thickening versus lesion of the right adrenal gland. Moderate generalized pancreatic atro phy. Unremarkable liver. Mildly contracted gallbladder. No biliary ductal dilation. Renal arterial ca lcifications are noted bilaterally. No hydronephrosis or ureteral calculi. Mild urinary bladder diste ntion. Prostamegaly. Calcifications of the vas deferens. No aortic aneurysm. Retroaortic left renal v ein. No adenopathy. There is no bowel obstruction or bowel wall thickening. Mild to moderate fecal retention. The visuali zed appendix appears noninflamed. Tiny fat filled periumbilical hernia. Unremarkable soft tissues. Gy necomastia. Degenerative changes of the spine, pelvis and hips. Healed remote fractures of the bilate ral inferior pubic rami. Unchanged L4 compression deformity with 1.8 cm lucent lesion involving the p osterior aspect of the vertebral body body. This results in thinning of the posterior cortex without retropulsion. 7 mm lucent focus involves the right iliac weighing on image 292 series 5. There is a q uestioned lucent lesion of the right iliac wing on image 33 series 5. Bilateral SI joint bolts. Heale d remote fracture deformity of the right iliac wing. Healed remote fracture of the posterior right ni nth and 10th ribs. Vertebral body hemangioma at T11. IMPRESSION: 1. No bowel obstruction or bowel wall thickening. Noninflamed appendix. 2. Mild urinary bladder distention with prostamegaly. 3. Unchanged L4 compression deformity with 1.8 cm lucent focus involving the posterior aspect of the vertebral body resulting in posterior cortical thinning raising the possibility of a pathologic fract ure without retropulsion. Additionally, there is a subcentimeter lucent lesion involving the right il iac wing. Follow-up oncologic consultation with skeletal survey radiographs recommended. 4. Additional findings as above. ACT 112: Negative or not required by law. The above report was generated using voice recognition software. It may contain grammatical, syntax o r spelling errors. Electronically signed by: Cruz Romero M.D. 04/21/2020 12:03 PM
[2020-04-21] MEDS ORDERED: PROCHLORPERAZINE 2 ML IV ONE (12:28)
--- NOTE | 2020-04-21 13:45 | CT Scan Report ---
CT head/brain wo con CLINICAL HISTORY: Acute change in mental status. COMPARISON STUDY: 03/21/2020 TECHNIQUE: Axial CT of the brain is performed from the vertex to the skull base. IV contrast was not administered for this examination. A dose lowering technique was utilized adhering to the principles of ALARA. CT DOSE: FINDINGS: No intra or extra-axial mass lesions are visualized. There is no CT evidence of acute cortical infarc tion. There is no evidence of midline shift. There is no acute hemorrhage. No calvarial fractures ar e visualized. There are moderate white matter hypodensities likely on a small vessel basis. 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 There are stable calcifications at the level of the right transverse sinus. There is mild ventricular prominence a finding which is felt to be secondary to volume loss. There is no evidence of acute sinusitis IMPRESSION: No change from the preceding study. No acute intracranial findings. ACT 112: Negative or not required by law. Electronically signed by: Ever Potter M.D. 04/21/2020 1:43 PM
[2020-04-21 14:03] LABS: Base Excess VBG -6.3 mEq/L; HCO3 VBG 21 mmol/L; PCO2 VBG 47 mmHg (38-50); PO2 VBG 28 mmHg; pH VBG 7.26 (7.36-7.41)
[2020-04-21 14:05] LABS: Oxygen Saturation VBG < 60.0 %
[2020-04-21 14:23] LABS: BUN Creatinine Ratio 19.3 (10-20); Blood Urea Nitrogen 32 mg/dl (7-18); Calcium 8.4 mg/dl (8.5-10.1); Carbon Dioxide 23 mmol/L (21-32); Chloride 110 mmol/L (98-107); Est GFR (African American) 48.4; Est GFR (Non-African American) 41.7; Glucose 387 mg/dl (70-99); Potassium 3.7 mmol/L (3.5-5.1); Sodium 144 mmol/L (136-145)
[2020-04-21] MEDS ORDERED: INFLUENZA VACCINE HIGH DOSE 65+ 0.5 ML SYR IM ONE (14:50)
[2020-04-21] MEDS ORDERED: INFLUENZA ADMINISTRATION CHARGE ONE (14:50)
--- NOTE | 2020-04-21 15:13 | History & Physical Report ---
Date of Service April 21, 2020 Assessment & Plan (1) DKA (diabetic ketoacidoses): (2) Diabetes mellitus type 1 with complications: -Admit to ICU -Patient presenting from [facility] [place] for evaluation of vomiting and hyperglycemia -Has been refusing insulin the past few days -In the ED, found to be in DKA with glucose 691, VBG pH 7.24, anion gap 20, BMP bicarb 16, beta hydroxybutyric acid 22.3 -Received 2 L NSS followed by 0.45 NS w/ 20meq KCl @ 250/hr and started on insulin drip -Continue insulin drip and IVF per protocol -Serial BMP, electrolytes, VBG's -case discussed with Dr. Major Staff at [facility] requesting that patient is transitioned to AM Lantus as he tends to get agitated in the evening and refuse medications (3) Leukocytosis: (4) Lactic acid acidosis: -WBC 19 K -Lactic acid 4.3 -> 4.6 -HR and BP stable -? due to sepsis and/or DKA -Received IV Zosyn and IV Vanco in ED, will continue both for now -Concern for possible aspiration after vomiting; recheck CXR. Noted to be saturating well on room air. -Check UA -Follow blood cultures (5) CHIVO (acute kidney injury): -Creatinine 1.6 (baseline ~ 0.8) -Likely prerenal in nature secondary to DKA -IVF -Hold losartan -Follow renal functions (6) Paroxysmal A-fib: -Rate controlled on metoprolol, will continue -Anticoagulated on Eliquis, will continue (7) HTN (hypertension): -BP currently controlled, continuing metoprolol and holding losartan as above (8) Bipolar 1 disorder: -Managed on Seroquel, will continue (9) Bone lesion: -CT ABD/pelvis noted Unchanged L4 compression deformity with 1.8 cm lucent focus involving the posterior aspect of the vertebral body resulting in posterior cortical thinning raising the possibility of a pathologic fracture without retropulsion. Additionally, there is a subcentimeter lucent lesion involving the right iliac wing. Follow-up oncologic consultation with skeletal survey radiographs recommended. -Will need outpatient follow-up (10) DVT prophylaxis: -SQ heparin Admission and Anticipated Discharge Date Admission Date: April 21, 2020 History of Present Illness Chief Complaint: Vomiting, hyperglycemia Primary Care Provider: [facility] 69-year-old male with PMH DM type I, bipolar disorder, paroxysmal atrial fibrillation anticoagulated on Eliquis, HTN, and other problems listed below who presents the ED from [facility] [place] for evaluation of vomiting and hyperglycemia. Patient recently admitted to [facility] 03/21 through 03/30 for management of DKA, CHIVO, hyperkalemia. Patient required intubation during that admission. Patient is a poor historian, therefore history is obtained from the staff at [facility] [place]. Staff reports the patient has been refusing his insulin for the past 3 days. This morning, he developed vomiting and blood sugar was found to be over 600. He was then sent to the ED for further evaluation. No other symptoms are reported. In the ED, patient was vomiting with his facemask on and there was some concern for aspiration. Patient is currently saturating well on room air and in no respiratory distress. Initial glucose 691, VBG pH 7.24, HCO3 on BMP 16, anion gap 20. WBC 19 K. Lactic acid 4.3. Patient received 2 L NSS followed by 0.45 NS w/ 20meq KCL @ 250/hr, insulin drip, IV prochlorperazine, IV Zosyn, IV Vanco, IV famotidine. Allergies Allergy/AdvReac Type Severity Reaction Status Date / Time No Known Allergies Allergy Unverified 04/21/20 09:30 Home Medications Home Medications Medication Instructions Recorded Confirmed Type cholecalciferol (vitamin D3) 1,000 unit PO QAM 12/10/19 04/21/20 History Eliquis 5 mg PO BID #60 tab 01/02/20 04/21/20 Rx metoprolol tartrate 25 mg PO BID #60 tab 01/02/20 04/21/20 Rx quetiapine 12.5 mg PO BID #20 tab 01/02/20 04/21/20 Rx quetiapine 25 mg PO HS #20 tab 01/02/20 04/21/20 Rx sertraline 50 mg PO HS #30 tab 01/02/20 04/21/20 Rx Lantus U-100 Insulin 12 unit SUBCUT DAILY 03/21/20 04/21/20 History atorvastatin 10 mg PO HS 03/21/20 04/21/20 History insulin aspart U-100 [Novolog 3 unit SUBCUT DAILYBL 03/21/20 04/21/20 History U-100 Insulin aspart] losartan 50 mg PO QAM 30 Days #30 tab 03/30/20 04/21/20 Rx acetaminophen [Tylenol] 650 mg PO Q6H PRN 04/21/20 04/21/20 History aspirin [Aspirin Low Dose] 81 mg PO QAM 04/21/20 04/21/20 History calcium carbonate [Oysco-500] 500 mg PO QAM 04/21/20 04/21/20 History dextrose [Insta-Glucose] 1 ea PO UD PRN 04/21/20 04/21/20 History insulin aspart U-100 [Novolog 5 unit SUBCUT DAILYBB 04/21/20 04/21/20 History U-100 Insulin aspart] insulin aspart U-100 [Novolog 5 unit SUBCUT DAILYBD 04/21/20 04/21/20 History U-100 Insulin aspart] insulin glargine [Lantus Solostar 20 unit SUBCUT QPM 04/21/20 04/21/20 History U-100 Insulin] pantoprazole 40 mg PO QAM 04/21/20 04/21/20 History sennosides [senna] 8.6 mg PO QAM 04/21/20 04/21/20 History Past Med/Surg History Medical History (Updated 04/21/20 @ 15:19 by AYAAN Pantoja) Bipolar 1 disorder Cognitive disorder COVID-19 Depression Diabetes mellitus type 1 with complications HTN (hypertension) Paroxysmal A-fib Status post amputation of toe of left foot Vitamin D deficiency Surgical History Status post below-knee amputation of left lower extremity Family History Other Family history unobtainable due to patient's condition Social History Smoking Status: Never smoker Hx Alcohol Use: No (unknown) Preferred Language: Serbian Communication Ability: Effective Blender Operator Required: No Beliefs That Will Affect Care: None marital status: Single Current Living Situation: [facility] Other Information That Helps Us Care for You: No Feels Safe at Home: Yes Safety Concerns: Feels Safe At This Time Assistive Devices: None Review of Systems Review of Systems: Unobtainable due to cognitive status Physical Exam Constitutional: WD/WN, vitals as above Eyes: PERRL, conjunctivae normal, anicteric sclerae ENMT: external ear and nose normal, oropharynx normal Respiratory: + abnormal respiratory effort (Poor inspiratory effort), no respiratory distress and no labored breathing Auscultation: + diminished lung sounds Cardiovascular: Rate/Rhythm: regular rate and regular rhythm Vessels: normal peripheral pulses Extremities: no edema Gastrointestinal (Abdomen): normal bowel sounds, soft, nontender, no hepatosplenomegaly Musculoskeletal: no cyanosis or clubbing, extremities motor strength 5/5 Extremities: + amputation noted (Left BKA) Skin: no rashes, warm and dry Neurologic: PERRL, EOMI, accommodation nl, no face palsy, no dysarthria Psychiatric: Orientation: alert and oriented to person; + not oriented to place and + not oriented to time Answers "no" to all questions asked Results & Data Results & Data ([facility]) Vital Signs (Past 12 Hours) Vital Signs Temp Pulse Pulse Resp BP BP Pulse Ox 04/21/20 14:45 36.8 C 84 16 149/44 H 98 04/21/20 13:43 86 16 90/57 L 98 04/21/20 12:50 90 18 122/87 99 04/21/20 11:51 88 18 117/88 99 04/21/20 10:39 86 20 120/99 99 04/21/20 09:53 96 04/21/20 08:56 36.9 C 89 16 123/89 96 Laboratory Results Short CBC 04/21/20 04/21/20 04/21/20 Range/Units 09:15 09:15 09:56 WBC 19.18 H (4.8-10.8) K/uL Hgb 12.5 L (14.0-18.0) g/dL Hct 40.1 L (42-52) % Plt Count 298 (130-400) K/uL VBG pH (7.36-7.41) Carbon Dioxide 16 L (21-32) mmol/L Anion Gap 20.0 H (3-11) Glucose 691 H* (70-99) mg/dl Lactate 4.3 H* (0.4-2.0) mmol/L 04/21/20 04/21/20 04/21/20 Range/Units 09:56 12:08 13:50 WBC (4.8-10.8) K/uL Hgb (14.0-18.0) g/dL Hct (42-52) % Plt Count (130-400) K/uL VBG pH 7.24 L (7.36-7.41) Carbon Dioxide 23 (21-32) mmol/L Anion Gap 11.0 (3-11) Glucose 387 H* (70-99) mg/dl Lactate 4.6 H* (0.4-2.0) mmol/L 04/21/20 Range/Units 13:50 WBC (4.8-10.8) K/uL Hgb (14.0-18.0) g/dL Hct (42-52) % Plt Count (130-400) K/uL VBG pH 7.26 L (7.36-7.41) Carbon Dioxide (21-32) mmol/L Anion Gap (3-11) Glucose (70-99) mg/dl Lactate (0.4-2.0) mmol/L BMP 04/21/20 04/21/20 09:15 13:50 Sodium 135 L 144 D Potassium 5.0 3.7 D Chloride 99 110 H Carbon Dioxide 16 L 23 BUN 39 H 32 H Creatinine 1.79 H 1.66 H Glucose 691 H* 387 H* Calcium 9.7 8.4 L Cardiac Enzymes 04/21/20 Range/Units 09:15 Troponin I < 0.015 (0-0.045) ng/ml Liver Function 04/21/20 Range/Units 09:15 Total Bilirubin 0.5 (0.2-1) mg/dl Direct Bilirubin 0.1 (0-0.2) mg/dl AST 38 H (15-37) U/L ALT 86 H (12-78) U/L Alkaline Phosphatase 166 H (45-117) U/L Albumin 3.6 (3.4-5.0) gm/dl Diagnostic Findings CXR IMPRESSION: Mild bibasilar opacities. Atelectasis is favored although an infectious process could appear similar. HEAD CT IMPRESSION: No change from the preceding study. No acute intracranial findings. ABD/PELVIS CT IMPRESSION: 1. No bowel obstruction or bowel wall thickening. Noninflamed appendix. 2. Mild urinary bladder distention with prostamegaly. 3. Unchanged L4 compression deformity with 1.8 cm lucent focus involving the posterior aspect of the vertebral body resulting in posterior cortical thinning raising the possibility of a pathologic fracture without retropulsion. Additiona lly, there is a subcentimeter lucent lesion involving the right iliac wing. Follow-up oncologic consultation with skeletal survey radiographs recommended. 4. Additional findings as above. Code Status & VTE Plan Code Status Patient is a full code as per my discussion with [facility] staff. VTE Prophylaxis Plan VTE Prophylaxis will be ordered: Yes Supervising Physician Co-Signing Physician Notes Attending addendum: The patient was seen and examined in emergency room He is a very poor historian and did not have any complaint during my examination The caring facility mentioned that he has not been taking his insulin for the last few days On examination Looks dry and lying in bed without significant discomfort Hemodynamically stable Chest-clear Heart-S1-S2, regular Abdomen-benign Extremities-no edema Admission labs reviewed including imaging studies Has DKA with CHIVO No obvious source of infection but will continue with current antibiotic as prescribed Agree with assessment and plan as outlined above by Malia Boateng (1) DKA (diabetic ketoacidoses) Diabetes mellitus complication detail: with coma Diabetes mellitus type: type 1 Qualified Code(s): E10.11 - Type 1 diabetes mellitus with ketoacidosis with coma (2) Leukocytosis Leukocytosis type: unspecified Qualified Code(s): D72.829 - Elevated white blood cell count, unspecified
[2020-04-21] MEDS ORDERED: HEPARIN SOD 5,000 UNIT/0.5 ML VIAL SQ SCH (15:40)
[2020-04-21] MEDS ORDERED: ICU PROTOCOL FOR HYPERGLYCEMIA PRN (15:40)
[2020-04-21] MEDS ORDERED: PHARMACY GLYCEMIC MGMT CONSULT PRN (15:45)
--- NOTE | 2020-04-21 15:50 | Critical Care Consultation ---
Date of Consultation April 21, 2020 Assessment & Plan (1) CHIVO (acute kidney injury): Impression: 69-year-old male with multiple medical comorbidities admitted with DKA. His gap is now closed after a short period of time on IV insulin and IV fluids. He is hemodynamically stable. The etiology of his DKA appears to been related to medical noncompliance. Recommendations: 1. DKA: We will continue the insulin drip for a few hours and follow his beta hydroxybutyrate. Once it clears, he will be transitioned to subcutaneous insulin and the insulin drip will be discontinued. We will keep him n.p.o. until his DKA has resolved. Anticipate that he should be able to transfer to the floor within the next 12 to 18 hours. 2. Acute renal failure: Likely secondary to prerenal azotemia. Continue volume resuscitation and follow serum creatinine. Will consider additional work-up if the patient's serum creatinine fails to return to baseline. 3. Lactic acidosis. Unclear etiology. The patient does not appear to have clinical signs or symptoms concerning for an underlying infection. Leukocytosis may be secondary to his DKA. Continue to follow at this point time but I do not think antibiotics are warranted. There was concerned about possible aspiration. Would recommend following the patient clinically off antibiotics and consider antimicrobial therapy if he should develop a fever, pulmonary infiltrate on chest x-ray, or increasing oxygen requirement. We will check repeat lactate in 4 hours 4. Mild anemia: No need for transfusion. No evidence of ongoing bleeding. Continue to trend values. 5. Hypokalemia: The patient will require electrolyte replacement protocol es pecially as his DKA resolves. DVT and GI prophylaxis will be initiated. We will observe in the ICU pending resolution of his DKA. Anticipate that the patient can likely transfer out of the ICU in relatively short order back to the hospitalist service. We will sign off once he leaves the ICU (2) DKA (diabetic ketoacidoses): (3) Leukocytosis: (4) Lactic acid acidosis: History of Present Illness Attending Physician: Roland Boateng MD History of Present Illness Asked by hospitalist to assist in management this patient admitted to the ICU with DKA. History is obtained from discussion with the hospitalist, review the electronic medical record, and interview the patient. Patient is a 61-year-old male with a history of diabetes and significant vascular complications including prior below the knee amputation as well as multiple toe amputations who presents to the emergency room from his residence at [facility] for hyperglycemia as well as vomiting. Patient was here for a similar episode approximately 3 weeks ago. The patient states that he has been taking all of his medications however the admission notes indicate that staff at his personal [facility] have reported that he was noncompliant and refusing his insulin. In the emergency room the patient was noted to have anion gap acidosis with elevated lactate and elevated white blood cell count. He received 2 L of crystalloid and was initiated on an insulin infusion. There was concerned about some nausea and vomiting and potential aspiration and he was also placed on Zosyn and vancomycin. He is hemodynamically stable. He currently denies any nausea vomiting or abdominal pain. No chest pain palpitations or lower extremity edema. Allergies Allergy/AdvReac Type Severity Reaction Status Date / Time No Known Allergies Allergy Unverified 04/21/20 09:30 Home Medications Home Medications Medication Instructions Recorded Confirmed Type cholecalciferol (vitamin D3) 1,000 unit PO QAM 12/10/19 04/21/20 History Eliquis 5 mg PO BID #60 tab 01/02/20 04/21/20 Rx metoprolol tartrate 25 mg PO BID #60 tab 01/02/20 04/21/20 Rx quetiapine 12.5 mg PO BID #20 tab 01/02/20 04/21/20 Rx quetiapine 25 mg PO HS #20 tab 01/02/20 04/21/20 Rx sertraline 50 mg PO HS #30 tab 01/02/20 04/21/20 Rx Lantus U-100 Insulin 12 unit SUBCUT DAILY 03/21/20 04/21/20 History atorvastatin 10 mg PO HS 03/21/20 04/21/20 History insulin aspart U-100 [Novolog 3 unit SUBCUT DAILYBL 03/21/20 04/21/20 History U-100 Insulin aspart] losartan 50 mg PO QAM 30 Days #30 tab 03/30/20 04/21/20 Rx acetaminophen [Tylenol] 650 mg PO Q6H PRN 04/21/20 04/21/20 History aspirin [Aspirin Low Dose] 81 mg PO QAM 04/21/20 04/21/20 History calcium carbonate [Oysco-500] 500 mg PO QAM 04/21/20 04/21/20 History dextrose [Insta-Glucose] 1 ea PO UD PRN 04/21/20 04/21/20 History insulin aspart U-100 [Novolog 5 unit SUBCUT DAILYBB 04/21/20 04/21/20 History U-100 Insulin aspart] insulin aspart U-100 [Novolog 5 unit SUBCUT DAILYBD 04/21/20 04/21/20 History U-100 Insulin aspart] insulin glargine [Lantus Solostar 20 unit SUBCUT QPM 04/21/20 04/21/20 History U-100 Insulin] pantoprazole 40 mg PO QAM 04/21/20 04/21/20 History sennosides [senna] 8.6 mg PO QAM 04/21/20 04/21/20 History Patient History Medical History (Updated 04/21/20 @ 15:19 by AYAAN Pantoja) Bipolar 1 disorder Cognitive disorder COVID-19 Depression Diabetes mellitus type 1 with complications HTN (hypertension) Paroxysmal A-fib Status post amputation of toe of left foot Vitamin D deficiency Surgical History Status post below-knee amputation of left lower extremity Family History Other Family history unobtainable due to patient's condition Social History Smoking Status: Never smoker Hx Alcohol Use: No (unknown) Preferred Language: Faroese Communication Ability: Effective Building Certifier Required: No Beliefs That Will Affect Care: None marital status: Single Current Living Situation: [place] [facility] Other Information That Helps Us Care for You: No Feels Safe at Home: Yes Safety Concerns: Feels Safe At This Time Assistive Devices: None Review of Systems Review of Systems: Please refer to admission H&P. No additions or deletions Physical Exam Constitutional: WD/WN, vitals as above Eyes: PERRL, conjunctivae normal, anicteric sclerae ENMT: external ear and nose normal, oropharynx normal Respiratory: + abnormal respiratory effort (Poor inspiratory effort), no respiratory distress and no labored breathing Auscultation: + diminished lung sounds Cardiovascular: Rate/Rhythm: regular rate and regular rhythm Vessels: normal peripheral pulses Extremities: no edema Gastrointestinal (Abdomen): normal bowel sounds, soft, nontender, no hepatosplenomegaly Musculoskeletal: no cyanosis or clubbing, extremities motor strength 5/5 Extremities: + amputation noted (Left BKA) Skin: no rashes, warm and dry Neurologic: PERRL, EOMI, accommodation nl, no face palsy, no dysarthria Psychiatric: Orientation: alert and oriented to person; + not oriented to place and + not oriented to time Answers "no" to all questions asked Results & Data Results & Data ([facility]) Vital Signs (Past 12 Hours) Vital Signs Temp Pulse Pulse Resp BP BP Pulse Ox 04/21/20 14:45 36.8 C 84 16 149/44 H 98 04/21/20 13:43 86 16 90/57 L 98 04/21/20 12:50 90 18 122/87 99 04/21/20 11:51 88 18 117/88 99 04/21/20 10:39 86 20 120/99 99 04/21/20 09:53 96 04/21/20 08:56 36.9 C 89 16 123/89 96 Laboratory Results 04/21/20 09:15 04/21/20 13:50 04/21/20 04/21/20 09:56 13:50 VBG pH 7.24 L 7.26 L VBG pCO2 41 47 VBG pO2 37 28 VBG HCO3 17 21 VBG O2 Saturation 62.9 < 60.0 VBG Base Excess -9.6 -6.3 Diagnostic Findings Chest x-ray was independently reviewed. No clear airspace opacity identified. CT the head without acute abnormality. CT of the abdomen and pelvis demonstrated no evidence of intra-abdominal pathology. Mild to moderate fecal retention was noted. Fat filled periumbilical hernia Coding Level of Care Code 72209 Inpt Consult Level 4 Diagnoses CHIVO (acute kidney injury) N17.9 DKA (diabetic ketoacidoses) E10.11 Diabetes mellitus complication detail: with coma Diabetes mellitus type: type 1 Leukocytosis D72.829 Leukocytosis type: unspecified Lactic acid acidosis E87.2 (1) DKA (diabetic ketoacidoses) Diabetes mellitus complication detail: with coma Diabetes mellitus type: type 1 Qualified Code(s): E10.11 - Type 1 diabetes mellitus with ketoacidosis with coma (2) Leukocytosis Leukocytosis type: unspecified Qualified Code(s): D72.829 - Elevated white blood cell count, unspecified
[2020-04-21] MEDS ORDERED: INSULIN ASPART 100 UNITS/ML 3 ML PEN SC SCH (16:30)
[2020-04-21] MEDS: SODIUM CHLOR 0.45% + 20MEQ KCL 20 MEQ/1,000 ML BAG IV SCH ×3 (16:58→21:09)
[2020-04-21] MEDS ORDERED: LIDOCAINE HCL 1% 20 ML VIAL ONE (17:29)
--- NOTE | 2020-04-21 17:55 | Procedure Note ---
Procedure Note Date of Service April 21, 2020 CENTRAL LINE PROCEDURE NOTE: Procedure: Central Line Placement Provider: Marshall Major MD Indication: Central Drug Administration, Poor Venous Access, Multiple Lab Draws Necessary, etc. Anesthesia: 5 mL's 1% lidocaine without epinephrine locally Site: Initial attempt in left IJ. We were unable to pass a wire so we transition to right IJ Verbal consent consent was obtained with ICU nurse in attendance. Patient was unable to sign medically and no family members available A time-out was completed verifying correct patient, procedure, site, positioning, and implants(s) or special equipment if applicable. Patients bilateral neck was cleansed and draped in the typical sterile fashion using Chloraprep. The Internal Jugular Vein and Carotid Artery were identified using ultrasound. The superficial tissue was anesthetized using 3 mL of 1% lidocaine without epinephrine under direct visualization with the ultrasound over both right and left internal jugular after adequate anesthetization was achieved, the Internal Jugular vein was cannulated under direct ultrasound guidance using an introducer needle on a syringe. Good venous blood return was maintained prior to removal of syringe from introducer needle. Initial attempt to pass the wire on the left was unsuccessful therefore we transitioned over to the right. The vein was accessed. Using Seldinger Technique, a guide wire was advanced through the introducer needle without resistance. The introducer needle was removed and ultrasound images were obtained of the guide wire within the Internal Jugular Vein and saved to the patients medical record. A small incision was made in penetrating fashion at the guide wire insertion site utilizing an 11 blade scalpel. The dilator was advanced to the vessel without resistance. The dilator was exchanged for the triple lumen catheter which was advanced into the vessel without resistance. The guide wire was removed intact from the catheter without issue. Claves were placed on each catheter tip with confirmation of good blood flow from each lumen. Each port was easily flushed with sterile saline. The catheter was placed at 16 cm and sutured in place. BioPatch was applied to the catheter and a sterile Tegaderm dressing was applied over the catheter with careful attention to sterility. Patient tolerated procedure well. No immediate complications were met. Post procedure x-ray currently pending Images were not saved to the medical record due to technical issues Coding CPT Codes Tubes, Drains, and Vasc Access - Tubes, Drains, and Vasc Access: [id number] Place catheter in vein superior or inferior vena cava ([id number]) [facility] [place] Codes (Charges) Tubes, Drains, and Vasc Access Procedure 1: Tubes, Drains, and Vasc Access: [id number] Place catheter in vein superior or inferior vena cava
--- NOTE | 2020-04-21 18:08 | XRay Report ---
XR chest 1V portable CLINICAL HISTORY: line placement COMPARISON STUDY: 04/21/2020 FINDINGS: The cardiac and mediastinal contours remain stable. There is a right internal jugular centr al venous catheter. The tip projects over the superior vena cava. There is no pneumothorax. There is no focal pulmonary consolidation. There are no pleural effusions. There are old right-sided rib fract ures. There is an old ununited left clavicular fracture.[ IMPRESSION: No evidence of pneumothorax status post placement of a right internal jugular central malik ous catheter. The tip projects over the superior vena cava ACT 112: Negative or not required by law. Electronically signed by: Ever Potter M.D. 04/21/2020 6:07 PM
[2020-04-21 18:20] LABS: BUN Creatinine Ratio 21.2 (10-20); Calcium 8.7 mg/dl (8.5-10.1); Creatinine Clr Calc Pharmacy 41.3 ml/min; Est GFR (African American) 55.1; Est GFR (Non-African American) 47.5; Magnesium 2.2 mg/dl (1.8-2.4); Potassium 3.5 mmol/L (3.5-5.1)
[2020-04-21 18:26] LABS: Phosphorus 1.7 mg/dl (2.5-4.9)
[2020-04-21] MEDS: PENDING D5 1/2NS+20mEq KCL IVF SCH ×2 (18:38→19:22)
[2020-04-21] MEDS ORDERED: INSULIN GLARGINE SOLOSTAR 100 UNITS/ML 3 ML PEN SC ONE (18:45)
[2020-04-21] MEDS ORDERED: ICU ELECTROLYTE REPLACEMENT PROTOCOL PRN (18:50)
[2020-04-21] MEDS ORDERED: SODIUM PHOSPHATE 3 MMOL/1 ML INFUSION IV STA (18:58)
[2020-04-21] MEDS ORDERED: Nursing to Pharmacy Communication SCH (19:00)
[2020-04-21] MEDS ORDERED: SODIUM PHOSPHATE 21 MMOL in SODIUM CHLORIDE 0.9% 500 ML IV ONE (19:15)
[2020-04-21] MEDS: POTASSIUM CHLORIDE / WTR 20 MEQ/100 ML PLCT IV SCH ×2 (19:28→21:09)
[2020-04-21] MEDS: INSULIN ASPART 100 UNITS/ML 3 ML PEN SC SCH (20:08)
[2020-04-21 20:25] LABS: Appearance Urine Clear (Clear); Bilirubin Urine Negative (Negative); Blood Urine Negative (Negative); Color Urine Yellow; Glucose Urine UA 3+ (Negative); Ketones Urine 2+ (Negative); Leukocyte Esterase Urine Negative (Negative); Nitrite Urine Negative (Negative); Protein Urine Negative (Negative); Specific Gravity Urine 1.032 (1.000-1.030); Urobilinogen Urine Negative (Negative)
[2020-04-21] MEDS ORDERED: FAMOTIDINE 20 MG in SYRINGE 3 ML IV SCH (21:00)
[2020-04-21] MEDS: ATORVASTATIN 10 MG TAB PO SCH (21:06)
[2020-04-21] MEDS: APIXABAN 5 MG TABLET PO SCH (21:06)
[2020-04-21] MEDS: QUEtiapine FUMARATE 25 MG TABLET PO SCH ×2 (21:07→21:08)
[2020-04-21] MEDS: SERTRALINE HCL 50 MG TABLET PO SCH (21:08)
[2020-04-21] MEDS: METOPROLOL TARTRATE 25 MG TAB PO SCH (21:08)
[2020-04-22] MEDS: INSULIN ASPART 100 UNITS/ML 3 ML PEN SC SCH ×6 (00:12→20:55)
[2020-04-22 00:36] LABS: Calcium 8.4 mg/dl (8.5-10.1); Creatinine Clr Calc Pharmacy 51.3 ml/min; Est GFR (African American) 71.6; Est GFR (Non-African American) 61.8; Magnesium 2.1 mg/dl (1.8-2.4); Potassium 5.1 mmol/L (3.5-5.1)
[2020-04-22] MEDS: SODIUM CHLOR 0.45% + 20MEQ KCL 20 MEQ/1,000 ML BAG IV SCH (02:33)
[2020-04-22 04:31] LABS: Calcium 8.1 mg/dl (8.5-10.1); Creatinine Clr Calc Pharmacy 62.1 ml/min; Est GFR (African American) 90.3; Est GFR (Non-African American) 77.9; Magnesium 1.9 mg/dl (1.8-2.4); Potassium 4.4 mmol/L (3.5-5.1)
[2020-04-22 04:41] LABS: Phosphorus 3.3 mg/dl (2.5-4.9)
[2020-04-22] MEDS ORDERED: NORMOSOL-R 1,000 ML IV ONE (06:32)
[2020-04-22] MEDS ORDERED: OLANZapine 10 MG/2.1 ML SDV IM PRN (06:32)
--- NOTE | 2020-04-22 08:59 | Hospitalist Progress Note ---
Date of Service April 22, 2020 Assessment & Plan (1) DKA (diabetic ketoacidoses): (2) Diabetes mellitus type 1 with complications: -Patient presenting from [facility] for evaluation of vomiting and hyperglycemia -Has been refusing insulin the past few days -In the ED, found to be in DKA with glucose over 700, VBG pH 7.24, anion gap 20, BMP bicarb 16, beta hydroxybutyric acid 22.3 -Received 2 L NSS followed by 0.45 NS w/ 20meq KCl @ 250/hr and started on insulin drip -Continued insulin drip and IVF per protocol -Serial BMP, electrolytes, VBG's -case discussed with Dr. Major, radiology tech, initially on admission, now downgraded from ICU Staff at [facility] requesting that patient is transitioned to AM Lantus as he tends to get agitated in the evening and refuse medications (3) Leukocytosis: (4) Lactic acid acidosis: -WBC 19 K on admission -Lactic acid 4.3 -> 4.6 ->0.6 (now normalized) -HR and BP stable -likely d/t DKA, less likely d/t sepsis -Received IV Zosyn and IV Vanco in ED, Abx stopped in ICU -Concern for possible aspiration after vomiting; recheck CXR. Noted to be saturating well on room air. -UA- negative -Follow blood cultures (5) CHIVO (acute kidney injury): -Creatinine 1.6 (baseline ~ 0.8) -Likely prerenal in nature secondary to DKA -IVF -Hold losartan -Follow renal functions, now improved, creatinine 1.0 (normalized) (6) Paroxysmal A-fib: -Rate controlled on metoprolol, will continue -Anticoagulated on Eliquis, will continue (7) HTN (hypertension): -BP currently controlled, continuing metoprolol and holding losartan as above (8) Bipolar 1 disorder: -Managed on Seroquel, will continue (9) Bone lesion: -CT ABD/pelvis noted Unchanged L4 compression deformity with 1.8 cm lucent focus involving the posterior aspect of the vertebral body resulting in posterior cortical thinning raising the possibility of a pathologic fracture without retropulsion. Additionally, there is a subcentimeter lucent lesion involving the right iliac wing. Follow-up oncologic consultation with skeletal survey radiographs recommended. -Will need outpatient follow-up (10) DVT prophylaxis: -SQ heparin Admission and Anticipated Discharge Date Admission Date: April 21, 2020 Subjective Patient is lying in bed, in no acute distress, he only answers yes and no questions. He does not elaborate. He has no complaints at this time, specifically denies any chest pain, shortness of breath, abdominal pain, nausea or vomiting. Review of Systems Review of Systems: All systems reviewed & are unremarkable except as noted in HPI & below Constitutional: no fever and no chills Respiratory: no cough and no dyspnea Cardiovascular: no chest pain and no palpitations Gastrointestinal: no abdominal pain, no nausea and no vomiting Physical Exam Physical Exam: Constitutional: Elderly male, lying in bed, WD/WN, vitals as above Eyes: PERRL, EOMI, conjunctivae normal, anicteric sclerae ENMT: external ear and nose normal, oropharynx normal Respiratory: no respiratory distress and no labored breathing Auscultation: + diminished lung sounds Cardiovascular: Rate/Rhythm: regular rate and regular rhythm Vessels: normal peripheral pulses Extremities: no edema Gastrointestinal (Abdomen): normal bowel sounds, soft, nontender, nondistended Musculoskeletal: no cyanosis or clubbing, extremities motor strength 5/5 Extremities: + amputation noted (Left BKA) Skin: no rashes, warm and dry Neurologic: PERRL, EOMI, accommodation nl, no face palsy, no dysarthria, moves extremities spontaneously Psychiatric: Orientation: alert and oriented to person; + not oriented to place and + not oriented to time Answers only "yes or no" to all questions Results & Data Results & Data ([facility]) Vital Signs (Past 12 Hours) Vital Signs Temp Pulse Pulse Resp BP BP Pulse Ox 04/22/20 07:36 37.0 C 63 19 146/61 H 97 04/22/20 06:16 37.1 C 70 18 131/61 95 04/22/20 05:00 62 12 98 04/22/20 04:34 63 13 121/54 L 98 04/22/20 04:30 36.7 C 63 13 118/86 98 04/22/20 03:34 72 13 118/86 97 04/22/20 03:30 68 12 97 04/22/20 03:00 70 18 100 04/22/20 02:38 69 19 115/64 99 04/22/20 01:34 75 20 112/97 91 04/22/20 00:53 65 04/22/20 00:34 69 13 122/95 98 04/21/20 23:33 37.0 C 62 12 106/54 L 99 04/21/20 22:36 69 13 95/43 L 99 04/21/20 21:34 92 H 15 136/66 99 04/21/20 21:02 92 H 18 118/44 L 99 04/21/20 21:00 90 15 98 Laboratory Results 04/22/20 04/22/20 04/22/20 Range/Units 08:16 04:04 04:02 WBC (4.8-10.8) K/uL RBC (4.7-6.1) M/uL Hgb (14.0-18.0) g/dL POC Hgb (14.0-18.0) g/dl Hct (42-52) % POC Hct (42-52) % MCV (80-100) fL MCH (25-34) pg MCHC (32-36) g/dL RDW Std Deviation (36.4-46.3) fL RDW Coeff of Jace (11.5-14.5) % Plt Count (130-400) K/uL MPV (7.4-10.4) fL Immature Gran % (Auto) % Neut % (Auto) % Lymph % (Auto) % [place] % (Auto) % Eos % (Auto) % Baso % (Auto) % Neut # (Auto) (1.4-6.5) K/uL Lymph # (Auto) (1.2-3.4) K/uL [place] # (Auto) (0.11-0.59) K/uL Eos # (Auto) (0-0.5) K/uL Baso # (Auto) (0-0.2) K/uL Immature Gran # (Auto) (0.00-0.02) K/uL PT (9.0-12.0) Seconds INR (0.9-1.1) APTT (21.0-31.0) Seconds PTT Ratio VBG pH 7.35 L (7.36-7.41) VBG pCO2 (38-50) mmHg VBG pO2 mmHg VBG HCO3 mmol/L VBG O2 Saturation % VBG Base Excess mEq/L Barometric Pressure mm/Hg POC Sodium (135-144) mmol/L Sodium (136-145) mmol/L POC Potassium (3.3-5.0) mmol/L Potassium (3.5-5.1) mmol/L POC Chloride (101-112) mmol/L Chloride (98-107) mmol/L Carbon Dioxide (21-32) mmol/L POC Total CO2 (24-31) mmol/L Anion Gap (3-11) POC Anion Gap (16-25) mmol/L POC BUN (7-18) mg/dl BUN (7-18) mg/dl Creatinine (0.6-1.4) mg/dl POC Creatinine (0.6-1.3) mg/dl Est Cr Clr Drug Dosing Est GFR ( Amer) Est GFR (Non-Af Amer) BUN/Creatinine Ratio (10-20) Glucose (70-99) mg/dl POC Glucose 95 89 (70-99) mg/dl POC Glucose (other) (70-99) mg/dl Lactate (0.4-2.0) mmol/L Calcium (8.5-10.1) mg/dl POC Ioniz Calcium Juan (1.12-1.32) mmol/l Phosphorus (2.5-4.9) mg/dl Magnesium (1.8-2.4) mg/dl Total Bilirubin (0.2-1) mg/dl Direct Bilirubin (0-0.2) mg/dl AST (15-37) U/L ALT (12-78) U/L Alkaline Phosphatase (45-117) U/L Troponin I (0-0.045) ng/ml Total Protein (6.4-8.2) gm/dl Albumin (3.4-5.0) gm/dl Globulin (2.5-4.0) gm/dl Albumin/Globulin Ratio (0.9-2) Lipase (73-393) U/L Beta-Hydroxybutyric Acd (0.2-2.81) mg/dl Procalcitonin (0-0.5) ng/ml Urine Color Urine Appearance (Clear) Urine pH (4.5-7.5) Ur Specific [place] (1.000-1.030) Urine Protein (Negative) Urine Glucose (UA) (Negative) Urine Ketones (Negative) Urine Blood (Negative) Urine Nitrite (Negative) Urine Bilirubin (Negative) Urine Urobilinogen (Negative) Ur Leukocyte Esterase (Negative) Nasal Screen MRSA (PCR) (Negative) COVID-19 Eval Order COVID-19 PCR (Negative) 04/22/20 04/22/20 04/21/20 Range/Units 04:02 04:02 Unknown WBC (4.8-10.8) K/uL RBC (4.7-6.1) M/uL Hgb (14.0-18.0) g/dL POC Hgb (14.0-18.0) g/dl Hct (42-52) % POC Hct (42-52) % MCV (80-100) fL MCH (25-34) pg MCHC (32-36) g/dL RDW Std Deviation (36.4-46.3) fL RDW Coeff of Jace (11.5-14.5) % Plt Count (130-400) K/uL MPV (7.4-10.4) fL Immature Gran % (Auto) % Neut % (Auto) % Lymph % (Auto) % [place] % (Auto) % Eos % (Auto) % Baso % (Auto) % Neut # (Auto) (1.4-6.5) K/uL Lymph # (Auto) (1.2-3.4) K/uL [place] # (Auto) (0.11-0.59) K/uL Eos # (Auto) (0-0.5) K/uL Baso # (Auto) (0-0.2) K/uL Immature Gran # (Auto) (0.00-0.02) K/uL PT (9.0-12.0) Seconds INR (0.9-1.1) APTT (21.0-31.0) Seconds PTT Ratio VBG pH (7.36-7.41) VBG pCO2 (38-50) mmHg VBG pO2 mmHg VBG HCO3 mmol/L VBG O2 Saturation % VBG Base Excess mEq/L Barometric Pressure mm/Hg POC Sodium (135-144) mmol/L Sodium 143 (136-145) mmol/L POC Potassium (3.3-5.0) mmol/L Potassium 4.4 (3.5-5.1) mmol/L POC Chloride (101-112) mmol/L Chloride 115 H (98-107) mmol/L Carbon Dioxide 25 (21-32) mmol/L POC Total CO2 (24-31) mmol/L Anion Gap 3.0 (3-11) POC Anion Gap (16-25) mmol/L POC BUN (7-18) mg/dl BUN 26 H (7-18) mg/dl Creatinine 0.99 (0.6-1.4) mg/dl POC Creatinine (0.6-1.3) mg/dl Est Cr Clr Drug Dosing 62.1 Est GFR ( Amer) 90.3 Est GFR (Non-Af Amer) 77.9 BUN/Creatinine Ratio 26.0 H (10-20) Glucose 90 (70-99) mg/dl POC Glucose (70-99) mg/dl POC Glucose (other) (70-99) mg/dl Lactate 0.6 (0.4-2.0) mmol/L Calcium 8.1 L (8.5-10.1) mg/dl POC Ioniz Calcium Juan (1.12-1.32) mmol/l Phosphorus 3.3 (2.5-4.9) mg/dl Magnesium 1.9 (1.8-2.4) mg/dl Total Bilirubin (0.2-1) mg/dl Direct Bilirubin (0-0.2) mg/dl AST (15-37) U/L ALT (12-78) U/L Alkaline Phosphatase (45-117) U/L Troponin I (0-0.045) ng/ml Total Protein (6.4-8.2) gm/dl Albumin (3.4-5.0) gm/dl Globulin (2.5-4.0) gm/dl Albumin/Globulin Ratio (0.9-2) Lipase (73-393) U/L Beta-Hydroxybutyric Acd (0.2-2.81) mg/dl Procalcitonin (0-0.5) ng/ml Urine Color Urine Appearance (Clear) Urine pH (4.5-7.5) Ur Specific [place] (1.000-1.030) Urine Protein (Negative) Urine Glucose (UA) (Negative) Urine Ketones (Negative) Urine Blood (Negative) Urine Nitrite (Negative) Urine Bilirubin (Negative) Urine Urobilinogen (Negative) Ur Leukocyte Esterase (Negative) Nasal Screen MRSA (PCR) Negative (Negative) COVID-19 Eval Order COVID-19 PCR (Negative) 04/21/20 04/21/20 04/21/20 Range/Units 23:49 23:49 23:49 WBC (4.8-10.8) K/uL RBC (4.7-6.1) M/uL Hgb (14.0-18.0) g/dL POC Hgb (14.0-18.0) g/dl Hct (42-52) % POC Hct (42-52) % MCV (80-100) fL MCH (25-34) pg MCHC (32-36) g/dL RDW Std Deviation (36.4-46.3) fL RDW Coeff of Jace (11.5-14.5) % Plt Count (130-400) K/uL MPV (7.4-10.4) fL Immature Gran % (Auto) % Neut % (Auto) % Lymph % (Auto) % [place] % (Auto) % Eos % (Auto) % Baso % (Auto) % Neut # (Auto) (1.4-6.5) K/uL Lymph # (Auto) (1.2-3.4) K/uL [place] # (Auto) (0.11-0.59) K/uL Eos # (Auto) (0-0.5) K/uL Baso # (Auto) (0-0.2) K/uL Immature Gran # (Auto) (0.00-0.02) K/uL PT (9.0-12.0) Seconds INR (0.9-1.1) APTT (21.0-31.0) Seconds PTT Ratio VBG pH 7.35 L (7.36-7.41) VBG pCO2 (38-50) mmHg VBG pO2 mmHg VBG HCO3 mmol/L VBG O2 Saturation % VBG Base Excess mEq/L Barometric Pressure mm/Hg POC Sodium (135-144) mmol/L Sodium 144 (136-145) mmol/L POC Potassium (3.3-5.0) mmol/L Potassium 5.1 D (3.5-5.1) mmol/L POC Chloride (101-112) mmol/L Chloride 115 H (98-107) mmol/L Carbon Dioxide 26 (21-32) mmol/L POC Total CO2 (24-31) mmol/L Anion Gap 3.0 (3-11) POC Anion Gap (16-25) mmol/L POC BUN (7-18) mg/dl BUN 29 H (7-18) mg/dl Creatinine 1.20 (0.6-1.4) mg/dl POC Creatinine (0.6-1.3) mg/dl Est Cr Clr Drug Dosing 51.3 Est GFR ( Amer) 71.6 Est GFR (Non-Af Amer) 61.8 BUN/Creatinine Ratio 24.0 H (10-20) Glucose 97 (70-99) mg/dl POC Glucose (70-99) mg/dl POC Glucose (other) (70-99) mg/dl Lactate 1.0 (0.4-2.0) mmol/L Calcium 8.4 L (8.5-10.1) mg/dl POC Ioniz Calcium Juan (1.12-1.32) mmol/l Phosphorus 4.0 D (2.5-4.9) mg/dl Magnesium 2.1 (1.8-2.4) mg/dl Total Bilirubin (0.2-1) mg/dl Direct Bilirubin (0-0.2) mg/dl AST (15-37) U/L ALT (12-78) U/L Alkaline Phosphatase (45-117) U/L Troponin I (0-0.045) ng/ml Total Protein (6.4-8.2) gm/dl Albumin (3.4-5.0) gm/dl Globulin (2.5-4.0) gm/dl Albumin/Globulin Ratio (0.9-2) Lipase (73-393) U/L Beta-Hydroxybutyric Acd (0.2-2.81) mg/dl Procalcitonin (0-0.5) ng/ml Urine Color Urine Appearance (Clear) Urine pH (4.5-7.5) Ur Specific [place] (1.000-1.030) Urine Protein (Negative) Urine Glucose (UA) (Negative) Urine Ketones (Negative) Urine Blood (Negative) Urine Nitrite (Negative) Urine Bilirubin (Negative) Urine Urobilinogen (Negative) Ur Leukocyte Esterase (Negative) Nasal Screen MRSA (PCR) (Negative) COVID-19 Eval Order COVID-19 PCR (Negative) 04/21/20 04/21/20 04/21/20 Range/Units 23:48 19:58 19:45 WBC (4.8-10.8) K/uL RBC (4.7-6.1) M/uL Hgb (14.0-18.0) g/dL POC Hgb (14.0-18.0) g/dl Hct (42-52) % POC Hct (42-52) % MCV (80-100) fL MCH (25-34) pg MCHC (32-36) g/dL RDW Std Deviation (36.4-46.3) fL RDW Coeff of Jace (11.5-14.5) % Plt Count (130-400) K/uL MPV (7.4-10.4) fL Immature Gran % (Auto) % Neut % (Auto) % Lymph % (Auto) % [place] % (Auto) % Eos % (Auto) % Baso % (Auto) % Neut # (Auto) (1.4-6.5) K/uL Lymph # (Auto) (1.2-3.4) K/uL [place] # (Auto) (0.11-0.59) K/uL Eos # (Auto) (0-0.5) K/uL Baso # (Auto) (0-0.2) K/uL Immature Gran # (Auto) (0.00-0.02) K/uL PT (9.0-12.0) Seconds INR (0.9-1.1) APTT (21.0-31.0) Seconds PTT Ratio VBG pH (7.36-7.41) VBG pCO2 (38-50) mmHg VBG pO2 mmHg VBG HCO3 mmol/L VBG O2 Saturation % VBG Base Excess mEq/L Barometric Pressure mm/Hg POC Sodium (135-144) mmol/L Sodium (136-145) mmol/L POC Potassium (3.3-5.0) mmol/L Potassium (3.5-5.1) mmol/L POC Chloride (101-112) mmol/L Chloride (98-107) mmol/L Carbon Dioxide (21-32) mmol/L POC Total CO2 (24-31) mmol/L Anion Gap (3-11) POC Anion Gap (16-25) mmol/L POC BUN (7-18) mg/dl BUN (7-18) mg/dl Creatinine (0.6-1.4) mg/dl POC Creatinine (0.6-1.3) mg/dl Est Cr Clr Drug Dosing Est GFR ( Amer) Est GFR (Non-Af Amer) BUN/Creatinine Ratio (10-20) Glucose (70-99) mg/dl POC Glucose 90 210 H (70-99) mg/dl POC Glucose (other) (70-99) mg/dl Lactate (0.4-2.0) mmol/L Calcium (8.5-10.1) mg/dl POC Ioniz Calcium Juan (1.12-1.32) mmol/l Phosphorus (2.5-4.9) mg/dl Magnesium (1.8-2.4) mg/dl Total Bilirubin (0.2-1) mg/dl Direct Bilirubin (0-0.2) mg/dl AST (15-37) U/L ALT (12-78) U/L Alkaline Phosphatase (45-117) U/L Troponin I (0-0.045) ng/ml Total Protein (6.4-8.2) gm/dl Albumin (3.4-5.0) gm/dl Globulin (2.5-4.0) gm/dl Albumin/Globulin Ratio (0.9-2) Lipase (73-393) U/L Beta-Hydroxybutyric Acd (0.2-2.81) mg/dl Procalcitonin (0-0.5) ng/ml Urine Color Yellow Urine Appearance Clear (Clear) Urine pH 5.0 (4.5-7.5) Ur Specific [place] 1.032 H (1.000-1.030) Urine Protein Negative (Negative) Urine Glucose (UA) 3+ H (Negative) Urine Ketones 2+ H (Negative) Urine Blood Negative (Negative) Urine Nitrite Negative (Negative) Urine Bilirubin Negative (Negative) Urine Urobilinogen Negative (Negative) Ur Leukocyte Esterase Negative (Negative) Nasal Screen MRSA (PCR) (Negative) COVID-19 Eval Order COVID-19 PCR (Negative) 04/21/20 04/21/20 04/21/20 Range/Units 17:55 17:52 17:52 WBC (4.8-10.8) K/uL RBC (4.7-6.1) M/uL Hgb (14.0-18.0) g/dL POC Hgb (14.0-18.0) g/dl Hct (42-52) % POC Hct (42-52) % MCV (80-100) fL MCH (25-34) pg MCHC (32-36) g/dL RDW Std Deviation (36.4-46.3) fL RDW Coeff of Jace (11.5-14.5) % Plt Count (130-400) K/uL MPV (7.4-10.4) fL Immature Gran % (Auto) % Neut % (Auto) % Lymph % (Auto) % [place] % (Auto) % Eos % (Auto) % Baso % (Auto) % Neut # (Auto) (1.4-6.5) K/uL Lymph # (Auto) (1.2-3.4) K/uL [place] # (Auto) (0.11-0.59) K/uL Eos # (Auto) (0-0.5) K/uL Baso # (Auto) (0-0.2) K/uL Immature Gran # (Auto) (0.00-0.02) K/uL PT (9.0-12.0) Seconds INR (0.9-1.1) APTT (21.0-31.0) Seconds PTT Ratio VBG pH 7.39 (7.36-7.41) VBG pCO2 (38-50) mmHg VBG pO2 mmHg VBG HCO3 mmol/L VBG O2 Saturation % VBG Base Excess mEq/L Barometric Pressure mm/Hg POC Sodium (135-144) mmol/L Sodium (136-145) mmol/L POC Potassium (3.3-5.0) mmol/L Potassium (3.5-5.1) mmol/L POC Chloride (101-112) mmol/L Chloride (98-107) mmol/L Carbon Dioxide (21-32) mmol/L POC Total CO2 (24-31) mmol/L Anion Gap (3-11) POC Anion Gap (16-25) mmol/L POC BUN (7-18) mg/dl BUN (7-18) mg/dl Creatinine (0.6-1.4) mg/dl POC Creatinine (0.6-1.3) mg/dl Est Cr Clr Drug Dosing Est GFR ( Amer) Est GFR (Non-Af Amer) BUN/Creatinine Ratio (10-20) Glucose (70-99) mg/dl POC Glucose 217 H (70-99) mg/dl POC Glucose (other) (70-99) mg/dl Lactate 2.9 H* (0.4-2.0) mmol/L Calcium (8.5-10.1) mg/dl POC Ioniz Calcium Juan (1.12-1.32) mmol/l Phosphorus (2.5-4.9) mg/dl Magnesium (1.8-2.4) mg/dl Total Bilirubin (0.2-1) mg/dl Direct Bilirubin (0-0.2) mg/dl AST (15-37) U/L ALT (12-78) U/L Alkaline Phosphatase (45-117) U/L Troponin I (0-0.045) ng/ml Total Protein (6.4-8.2) gm/dl Albumin (3.4-5.0) gm/dl Globulin (2.5-4.0) gm/dl Albumin/Globulin Ratio (0.9-2) Lipase (73-393) U/L Beta-Hydroxybutyric Acd (0.2-2.81) mg/dl Procalcitonin (0-0.5) ng/ml Urine Color Urine Appearance (Clear) Urine pH (4.5-7.5) Ur Specific [place] (1.000-1.030) Urine Protein (Negative) Urine Glucose (UA) (Negative) Urine Ketones (Negative) Urine Blood (Negative) Urine Nitrite (Negative) Urine Bilirubin (Negative) Urine Urobilinogen (Negative) Ur Leukocyte Esterase (Negative) Nasal Screen MRSA (PCR) (Negative) COVID-19 Eval Order COVID-19 PCR (Negative) 04/21/20 04/21/20 04/21/20 Range/Units 17:52 16:42 14:35 WBC (4.8-10.8) K/uL RBC (4.7-6.1) M/uL Hgb (14.0-18.0) g/dL POC Hgb (14.0-18.0) g/dl Hct (42-52) % POC Hct (42-52) % MCV (80-100) fL MCH (25-34) pg MCHC (32-36) g/dL RDW Std Deviation (36.4-46.3) fL RDW Coeff of Jace (11.5-14.5) % Plt Count (130-400) K/uL MPV (7.4-10.4) fL Immature Gran % (Auto) % Neut % (Auto) % Lymph % (Auto) % [place] % (Auto) % Eos % (Auto) % Baso % (Auto) % Neut # (Auto) (1.4-6.5) K/uL Lymph # (Auto) (1.2-3.4) K/uL [place] # (Auto) (0.11-0.59) K/uL Eos # (Auto) (0-0.5) K/uL Baso # (Auto) (0-0.2) K/uL Immature Gran # (Auto) (0.00-0.02) K/uL PT (9.0-12.0) Seconds INR (0.9-1.1) APTT (21.0-31.0) Seconds PTT Ratio VBG pH (7.36-7.41) VBG pCO2 (38-50) mmHg VBG pO2 mmHg VBG HCO3 mmol/L VBG O2 Saturation % VBG Base Excess mEq/L Barometric Pressure mm/Hg POC Sodium (135-144) mmol/L Sodium 144 (136-145) mmol/L POC Potassium (3.3-5.0) mmol/L Potassium 3.5 (3.5-5.1) mmol/L POC Chloride (101-112) mmol/L Chloride 113 H (98-107) mmol/L Carbon Dioxide 25 (21-32) mmol/L POC Total CO2 (24-31) mmol/L Anion Gap 6.0 (3-11) POC Anion Gap (16-25) mmol/L POC BUN (7-18) mg/dl BUN 32 H (7-18) mg/dl Creatinine 1.49 H (0.6-1.4) mg/dl POC Creatinine (0.6-1.3) mg/dl Est Cr Clr Drug Dosing 41.3 Est GFR ( Amer) 55.1 Est GFR (Non-Af Amer) 47.5 BUN/Creatinine Ratio 21.2 H (10-20) Glucose 211 H (70-99) mg/dl POC Glucose 408 H* 416 H* (70-99) mg/dl POC Glucose (other) (70-99) mg/dl Lactate (0.4-2.0) mmol/L Calcium 8.7 (8.5-10.1) mg/dl POC Ioniz Calcium Juan (1.12-1.32) mmol/l Phosphorus 1.7 L D (2.5-4.9) mg/dl Magnesium 2.2 (1.8-2.4) mg/dl Total Bilirubin (0.2-1) mg/dl Direct Bilirubin (0-0.2) mg/dl AST (15-37) U/L ALT (12-78) U/L Alkaline Phosphatase (45-117) U/L Troponin I (0-0.045) ng/ml Total Protein (6.4-8.2) gm/dl Albumin (3.4-5.0) gm/dl Globulin (2.5-4.0) gm/dl Albumin/Globulin Ratio (0.9-2) Lipase (73-393) U/L Beta-Hydroxybutyric Acd (0.2-2.81) mg/dl Procalcitonin (0-0.5) ng/ml Urine Color Urine Appearance (Clear) Urine pH (4.5-7.5) Ur Specific [place] (1.000-1.030) Urine Protein (Negative) Urine Glucose (UA) (Negative) Urine Ketones (Negative) Urine Blood (Negative) Urine Nitrite (Negative) Urine Bilirubin (Negative) Urine Urobilinogen (Negative) Ur Leukocyte Esterase (Negative) Nasal Screen MRSA (PCR) (Negative) COVID-19 Eval Order COVID-19 PCR (Negative) 04/21/20 04/21/20 04/21/20 Range/Units 13:50 13:50 12:41 WBC (4.8-10.8) K/uL RBC (4.7-6.1) M/uL Hgb (14.0-18.0) g/dL POC Hgb (14.0-18.0) g/dl Hct (42-52) % POC Hct (42-52) % MCV (80-100) fL MCH (25-34) pg MCHC (32-36) g/dL RDW Std Deviation (36.4-46.3) fL RDW Coeff of Jace (11.5-14.5) % Plt Count (130-400) K/uL MPV (7.4-10.4) fL Immature Gran % (Auto) % Neut % (Auto) % Lymph % (Auto) % [place] % (Auto) % Eos % (Auto) % Baso % (Auto) % Neut # (Auto) (1.4-6.5) K/uL Lymph # (Auto) (1.2-3.4) K/uL [place] # (Auto) (0.11-0.59) K/uL Eos # (Auto) (0-0.5) K/uL Baso # (Auto) (0-0.2) K/uL Immature Gran # (Auto) (0.00-0.02) K/uL PT (9.0-12.0) Seconds INR (0.9-1.1) APTT (21.0-31.0) Seconds PTT Ratio VBG pH 7.26 L (7.36-7.41) VBG pCO2 47 (38-50) mmHg VBG pO2 28 mmHg VBG HCO3 21 mmol/L VBG O2 Saturation < 60.0 % VBG Base Excess -6.3 mEq/L Barometric Pressure 724.5 mm/Hg POC Sodium (135-144) mmol/L Sodium 144 D (136-145) mmol/L POC Potassium (3.3-5.0) mmol/L Potassium 3.7 D (3.5-5.1) mmol/L POC Chloride (101-112) mmol/L Chloride 110 H (98-107) mmol/L Carbon Dioxide 23 (21-32) mmol/L POC Total CO2 (24-31) mmol/L Anion Gap 11.0 (3-11) POC Anion Gap (16-25) mmol/L POC BUN (7-18) mg/dl BUN 32 H (7-18) mg/dl Creatinine 1.66 H (0.6-1.4) mg/dl POC Creatinine (0.6-1.3) mg/dl Est Cr Clr Drug Dosing Not Reportable Est GFR ( Amer) 48.4 Est GFR (Non-Af Amer) 41.7 BUN/Creatinine Ratio 19.3 (10-20) Glucose 387 H* (70-99) mg/dl POC Glucose 578 H* (70-99) mg/dl POC Glucose (other) (70-99) mg/dl Lactate (0.4-2.0) mmol/L Calcium 8.4 L (8.5-10.1) mg/dl POC Ioniz Calcium Juan (1.12-1.32) mmol/l Phosphorus (2.5-4.9) mg/dl Magnesium (1.8-2.4) mg/dl Total Bilirubin (0.2-1) mg/dl Direct Bilirubin (0-0.2) mg/dl AST (15-37) U/L ALT (12-78) U/L Alkaline Phosphatase (45-117) U/L Troponin I (0-0.045) ng/ml Total Protein (6.4-8.2) gm/dl Albumin (3.4-5.0) gm/dl Globulin (2.5-4.0) gm/dl Albumin/Globulin Ratio (0.9-2) Lipase (73-393) U/L Beta-Hydroxybutyric Acd 22.30 H (0.2-2.81) mg/dl Procalcitonin (0-0.5) ng/ml Urine Color Urine Appearance (Clear) Urine pH (4.5-7.5) Ur Specific [place] (1.000-1.030) Urine Protein (Negative) Urine Glucose (UA) (Negative) Urine Ketones (Negative) Urine Blood (Negative) Urine Nitrite (Negative) Urine Bilirubin (Negative) Urine Urobilinogen (Negative) Ur Leukocyte Esterase (Negative) Nasal Screen MRSA (PCR) (Negative) COVID-19 Eval Order COVID-19 PCR (Negative) 04/21/20 04/21/20 04/21/20 Range/Units 12:08 11:45 11:45 WBC (4.8-10.8) K/uL RBC (4.7-6.1) M/uL Hgb (14.0-18.0) g/dL POC Hgb (14.0-18.0) g/dl Hct (42-52) % POC Hct (42-52) % MCV (80-100) fL MCH (25-34) pg MCHC (32-36) g/dL RDW Std Deviation (36.4-46.3) fL RDW Coeff of Jace (11.5-14.5) % Plt Count (130-400) K/uL MPV (7.4-10.4) fL Immature Gran % (Auto) % Neut % (Auto) % Lymph % (Auto) % [place] % (Auto) % Eos % (Auto) % Baso % (Auto) % Neut # (Auto) (1.4-6.5) K/uL Lymph # (Auto) (1.2-3.4) K/uL [place] # (Auto) (0.11-0.59) K/uL Eos # (Auto) (0-0.5) K/uL Baso # (Auto) (0-0.2) K/uL Immature Gran # (Auto) (0.00-0.02) K/uL PT (9.0-12.0) Seconds INR (0.9-1.1) APTT (21.0-31.0) Seconds PTT Ratio VBG pH (7.36-7.41) VBG pCO2 (38-50) mmHg VBG pO2 mmHg VBG HCO3 mmol/L VBG O2 Saturation % VBG Base Excess mEq/L Barometric Pressure mm/Hg POC Sodium (135-144) mmol/L Sodium (136-145) mmol/L POC Potassium (3.3-5.0) mmol/L Potassium (3.5-5.1) mmol/L POC Chloride (101-112) mmol/L Chloride (98-107) mmol/L Carbon Dioxide (21-32) mmol/L POC Total CO2 (24-31) mmol/L Anion Gap (3-11) POC Anion Gap (16-25) mmol/L POC BUN (7-18) mg/dl BUN (7-18) mg/dl Creatinine (0.6-1.4) mg/dl POC Creatinine (0.6-1.3) mg/dl Est Cr Clr Drug Dosing Est GFR ( Amer) Est GFR (Non-Af Amer) BUN/Creatinine Ratio (10-20) Glucose (70-99) mg/dl POC Glucose (70-99) mg/dl POC Glucose (other) (70-99) mg/dl Lactate 4.6 H* (0.4-2.0) mmol/L Calcium (8.5-10.1) mg/dl POC Ioniz Calcium Juan (1.12-1.32) mmol/l Phosphorus (2.5-4.9) mg/dl Magnesium (1.8-2.4) mg/dl Total Bilirubin (0.2-1) mg/dl Direct Bilirubin (0-0.2) mg/dl AST (15-37) U/L ALT (12-78) U/L Alkaline Phosphatase (45-117) U/L Troponin I (0-0.045) ng/ml Total Protein (6.4-8.2) gm/dl Albumin (3.4-5.0) gm/dl Globulin (2.5-4.0) gm/dl Albumin/Globulin Ratio (0.9-2) Lipase (73-393) U/L Beta-Hydroxybutyric Acd (0.2-2.81) mg/dl Procalcitonin (0-0.5) ng/ml Urine Color Urine Appearance (Clear) Urine pH (4.5-7.5) Ur Specific [place] (1.000-1.030) Urine Protein (Negative) Urine Glucose (UA) (Negative) Urine Ketones (Negative) Urine Blood (Negative) Urine Nitrite (Negative) Urine Bilirubin (Negative) Urine Urobilinogen (Negative) Ur Leukocyte Esterase (Negative) Nasal Screen MRSA (PCR) (Negative) COVID-19 Eval Order Covid19 Done at [facility] COVID-19 PCR NEGATIVE (Negative) 04/21/20 04/21/20 04/21/20 Range/Units 09:56 09:56 09:30 WBC (4.8-10.8) K/uL RBC (4.7-6.1) M/uL Hgb (14.0-18.0) g/dL POC Hgb 13.6 L (14.0-18.0) g/dl Hct (42-52) % POC Hct 40 L (42-52) % MCV (80-100) fL MCH (25-34) pg MCHC (32-36) g/dL RDW Std Deviation (36.4-46.3) fL RDW Coeff of Jace (11.5-14.5) % Plt Count (130-400) K/uL MPV (7.4-10.4) fL Immature Gran % (Auto) % Neut % (Auto) % Lymph % (Auto) % [place] % (Auto) % Eos % (Auto) % Baso % (Auto) % Neut # (Auto) (1.4-6.5) K/uL Lymph # (Auto) (1.2-3.4) K/uL [place] # (Auto) (0.11-0.59) K/uL Eos # (Auto) (0-0.5) K/uL Baso # (Auto) (0-0.2) K/uL Immature Gran # (Auto) (0.00-0.02) K/uL PT (9.0-12.0) Seconds INR (0.9-1.1) APTT (21.0-31.0) Seconds PTT Ratio VBG pH 7.24 L (7.36-7.41) VBG pCO2 41 (38-50) mmHg VBG pO2 37 mmHg VBG HCO3 17 mmol/L VBG O2 Saturation 62.9 % VBG Base Excess -9.6 mEq/L Barometric Pressure 726.3 mm/Hg POC Sodium 135 (135-144) mmol/L Sodium (136-145) mmol/L POC Potassium 4.8 (3.3-5.0) mmol/L Potassium (3.5-5.1) mmol/L POC Chloride 101 (101-112) mmol/L Chloride (98-107) mmol/L Carbon Dioxide (21-32) mmol/L POC Total CO2 14 L (24-31) mmol/L Anion Gap (3-11) POC Anion Gap 26.0 H (16-25) mmol/L POC BUN 37 H (7-18) mg/dl BUN (7-18) mg/dl Creatinine (0.6-1.4) mg/dl POC Creatinine 1.3 (0.6-1.3) mg/dl Est Cr Clr Drug Dosing Est GFR ( Amer) Est GFR (Non-Af Amer) BUN/Creatinine Ratio (10-20) Glucose (70-99) mg/dl POC Glucose (70-99) mg/dl POC Glucose (other) > 700 H* (70-99) mg/dl Lactate 4.3 H* (0.4-2.0) mmol/L Calcium (8.5-10.1) mg/dl POC Ioniz Calcium Juan 1.17 (1.12-1.32) mmol/l Phosphorus (2.5-4.9) mg/dl Magnesium (1.8-2.4) mg/dl Total Bilirubin (0.2-1) mg/dl Direct Bilirubin (0-0.2) mg/dl AST (15-37) U/L ALT (12-78) U/L Alkaline Phosphatase (45-117) U/L Troponin I (0-0.045) ng/ml Total Protein (6.4-8.2) gm/dl Albumin (3.4-5.0) gm/dl Globulin (2.5-4.0) gm/dl Albumin/Globulin Ratio (0.9-2) Lipase (73-393) U/L Beta-Hydroxybutyric Acd (0.2-2.81) mg/dl Procalcitonin (0-0.5) ng/ml Urine Color Urine Appearance (Clear) Urine pH (4.5-7.5) Ur Specific [place] (1.000-1.030) Urine Protein (Negative) Urine Glucose (UA) (Negative) Urine Ketones (Negative) Urine Blood (Negative) Urine Nitrite (Negative) Urine Bilirubin (Negative) Urine Urobilinogen (Negative) Ur Leukocyte Esterase (Negative) Nasal Screen MRSA (PCR) (Negative) COVID-19 Eval Order COVID-19 PCR (Negative) 04/21/20 04/21/20 04/21/20 Range/Units 09:15 09:15 09:15 WBC (4.8-10.8) K/uL RBC (4.7-6.1) M/uL Hgb (14.0-18.0) g/dL POC Hgb (14.0-18.0) g/dl Hct (42-52) % POC Hct (42-52) % MCV (80-100) fL MCH (25-34) pg MCHC (32-36) g/dL RDW Std Deviation (36.4-46.3) fL RDW Coeff of Jace (11.5-14.5) % Plt Count (130-400) K/uL MPV (7.4-10.4) fL Immature Gran % (Auto) % Neut % (Auto) % Lymph % (Auto) % [place] % (Auto) % Eos % (Auto) % Baso % (Auto) % Neut # (Auto) (1.4-6.5) K/uL Lymph # (Auto) (1.2-3.4) K/uL [place] # (Auto) (0.11-0.59) K/uL Eos # (Auto) (0-0.5) K/uL Baso # (Auto) (0-0.2) K/uL Immature Gran # (Auto) (0.00-0.02) K/uL PT 10.1 (9.0-12.0) Seconds INR 1.0 (0.9-1.1) APTT < 20.0 L (21.0-31.0) Seconds PTT Ratio 0.7 VBG pH (7.36-7.41) VBG pCO2 (38-50) mmHg VBG pO2 mmHg VBG HCO3 mmol/L VBG O2 Saturation % VBG Base Excess mEq/L Barometric Pressure mm/Hg POC Sodium (135-144) mmol/L Sodium 135 L (136-145) mmol/L POC Potassium (3.3-5.0) mmol/L Potassium 5.0 (3.5-5.1) mmol/L POC Chloride (101-112) mmol/L Chloride 99 (98-107) mmol/L Carbon Dioxide 16 L (21-32) mmol/L POC Total CO2 (24-31) mmol/L Anion Gap 20.0 H (3-11) POC Anion Gap (16-25) mmol/L POC BUN (7-18) mg/dl BUN 39 H (7-18) mg/dl Creatinine 1.79 H (0.6-1.4) mg/dl POC Creatinine (0.6-1.3) mg/dl Est Cr Clr Drug Dosing Not Reportable Est GFR ( Amer) 44.1 Est GFR (Non-Af Amer) 38.1 BUN/Creatinine Ratio 21.8 H (10-20) Glucose 691 H* (70-99) mg/dl POC Glucose (70-99) mg/dl POC Glucose (other) (70-99) mg/dl Lactate (0.4-2.0) mmol/L Calcium 9.7 (8.5-10.1) mg/dl POC Ioniz Calcium Juan (1.12-1.32) mmol/l Phosphorus 6.5 H (2.5-4.9) mg/dl Magnesium 2.6 H (1.8-2.4) mg/dl Total Bilirubin 0.5 (0.2-1) mg/dl Direct Bilirubin 0.1 (0-0.2) mg/dl AST 38 H (15-37) U/L ALT 86 H (12-78) U/L Alkaline Phosphatase 166 H (45-117) U/L Troponin I < 0.015 (0-0.045) ng/ml Total Protein 7.9 (6.4-8.2) gm/dl Albumin 3.6 (3.4-5.0) gm/dl Globulin 4.3 H (2.5-4.0) gm/dl Albumin/Globulin Ratio 0.8 L (0.9-2) Lipase 100 (73-393) U/L Beta-Hydroxybutyric Acd 62.06 H (0.2-2.81) mg/dl Procalcitonin 1.82 H (0-0.5) ng/ml Urine Color Urine Appearance (Clear) Urine pH (4.5-7.5) Ur Specific [place] (1.000-1.030) Urine Protein (Negative) Urine Glucose (UA) (Negative) Urine Ketones (Negative) Urine Blood (Negative) Urine Nitrite (Negative) Urine Bilirubin (Negative) Urine Urobilinogen (Negative) Ur Leukocyte Esterase (Negative) Nasal Screen MRSA (PCR) (Negative) COVID-19 Eval Order COVID-19 PCR (Negative) 04/21/20 Range/Units 09:15 WBC 19.18 H (4.8-10.8) K/uL RBC 4.29 L (4.7-6.1) M/uL Hgb 12.5 L (14.0-18.0) g/dL POC Hgb (14.0-18.0) g/dl Hct 40.1 L (42-52) % POC Hct (42-52) % MCV 93.5 (80-100) fL MCH 29.1 (25-34) pg MCHC 31.2 L (32-36) g/dL RDW Std Deviation 49.7 H (36.4-46.3) fL RDW Coeff of Jace 14.7 H (11.5-14.5) % Plt Count 298 (130-400) K/uL MPV 10.5 H (7.4-10.4) fL Immature Gran % (Auto) 0.3 % Neut % (Auto) 84.0 % Lymph % (Auto) 9.6 % [place] % (Auto) 5.9 % Eos % (Auto) 0.1 % Baso % (Auto) 0.1 % Neut # (Auto) 16.11 H (1.4-6.5) K/uL Lymph # (Auto) 1.85 (1.2-3.4) K/uL [place] # (Auto) 1.13 H (0.11-0.59) K/uL Eos # (Auto) 0.01 (0-0.5) K/uL Baso # (Auto) 0.02 (0-0.2) K/uL Immature Gran # (Auto) 0.06 H (0.00-0.02) K/uL PT (9.0-12.0) Seconds INR (0.9-1.1) APTT (21.0-31.0) Seconds PTT Ratio VBG pH (7.36-7.41) VBG pCO2 (38-50) mmHg VBG pO2 mmHg VBG HCO3 mmol/L VBG O2 Saturation % VBG Base Excess mEq/L Barometric Pressure mm/Hg POC Sodium (135-144) mmol/L Sodium (136-145) mmol/L POC Potassium (3.3-5.0) mmol/L Potassium (3.5-5.1) mmol/L POC Chloride (101-112) mmol/L Chloride (98-107) mmol/L Carbon Dioxide (21-32) mmol/L POC Total CO2 (24-31) mmol/L Anion Gap (3-11) POC Anion Gap (16-25) mmol/L POC BUN (7-18) mg/dl BUN (7-18) mg/dl Creatinine (0.6-1.4) mg/dl POC Creatinine (0.6-1.3) mg/dl Est Cr Clr Drug Dosing Est GFR ( Amer) Est GFR (Non-Af Amer) BUN/Creatinine Ratio (10-20) Glucose (70-99) mg/dl POC Glucose (70-99) mg/dl POC Glucose (other) (70-99) mg/dl Lactate (0.4-2.0) mmol/L Calcium (8.5-10.1) mg/dl POC Ioniz Calcium Juan (1.12-1.32) mmol/l Phosphorus (2.5-4.9) mg/dl Magnesium (1.8-2.4) mg/dl Total Bilirubin (0.2-1) mg/dl Direct Bilirubin (0-0.2) mg/dl AST (15-37) U/L ALT (12-78) U/L Alkaline Phosphatase (45-117) U/L Troponin I (0-0.045) ng/ml Total Protein (6.4-8.2) gm/dl Albumin (3.4-5.0) gm/dl Globulin (2.5-4.0) gm/dl Albumin/Globulin Ratio (0.9-2) Lipase (73-393) U/L Beta-Hydroxybutyric Acd (0.2-2.81) mg/dl Procalcitonin (0-0.5) ng/ml Urine Color Urine Appearance (Clear) Urine pH (4.5-7.5) Ur Specific [place] (1.000-1.030) Urine Protein (Negative) Urine Glucose (UA) (Negative) Urine Ketones (Negative) Urine Blood (Negative) Urine Nitrite (Negative) Urine Bilirubin (Negative) Urine Urobilinogen (Negative) Ur Leukocyte Esterase (Negative) Nasal Screen MRSA (PCR) (Negative) COVID-19 Eval Order COVID-19 PCR (Negative) Medications Administered Current Inpatient Medications Apixaban (Apixaban 5 Mg Tablet) 5 mg PO BID AYDEN Stop: 05/21/20 20:59 Last Admin: 04/21/20 21:06 Dose: 5 mg Documented by: Aspirin (Aspirin 81 Mg Ectab) 81 mg PO QAM AYDEN Stop: 05/22/20 08:59 Atorvastatin Calcium (Atorvastatin 10 Mg Tab) 10 mg PO HS AYDEN Stop: 05/21/20 20:59 Last Admin: 04/21/20 21:06 Dose: 10 mg Documented by: Parenteral Electrolytes (Normosol-R) 1,000 mls @ 60 mls/hr IV .[id number] Stop: 04/22/20 23:11 Last Admin: 10/08/20 08:18 Dose: 60 mls/hr Documented by: Insulin Aspart (Insulin Aspart 100 Units/Ml 3 Ml Pen) 0 units SC Q4 [facility] Stop: 05/21/20 19:59 Last Admin: 04/22/20 08:29 Dose: Not Given Documented by: Metoprolol Tartrate (Metoprolol Tartrate 25 Mg Tab) 25 mg PO BID [facility] Stop: 05/21/20 20:59 Last Admin: 04/21/20 21:08 Dose: 25 mg Documented by: Miscellaneous Information (Pharmacy Glycemic Mgmt Consult) 1 ea N/A UD PRN PRN Reason: Consult Stop: 05/21/20 15:44 Olanzapine (Olanzapine 10 Mg/2.1 Ml Sdv) 2.5 mg IM Q4H PRN PRN Reason: Anxiety/Agitation Stop: 05/22/20 06:31 Pantoprazole Sodium (Pantoprazole 40 Mg Tab) 40 mg PO QAM [facility] Stop: 05/22/20 08:59 Quetiapine Fumarate (Quetiapine Fumarate 25 Mg Tablet) 12.5 mg PO BID [facility] Stop: 05/21/20 20:59 Last Admin: 04/21/20 21:08 Dose: 12.5 mg Documented by: Quetiapine Fumarate (Quetiapine Fumarate 25 Mg Tablet) 25 mg PO [facility] Stop: 05/21/20 20:59 Last Admin: 04/21/20 21:07 Dose: 25 mg Documented by: Sertraline HCl (Sertraline Hcl 50 Mg Tablet) 50 mg PO HS [facility] Stop: 05/21/20 20:59 Last Admin: 04/21/20 21:08 Dose: 50 mg Documented by: (1) DKA (diabetic ketoacidoses) Diabetes mellitus complication detail: without coma Diabetes mellitus type: type 1 Qualified Code(s): E10.10 - Type 1 diabetes mellitus with ketoacidosis without coma (2) Leukocytosis Leukocytosis type: unspecified Qualified Code(s): D72.829 - Elevated white blood cell count, unspecified
[2020-04-22] MEDS: ASPIRIN 81 MG ECTAB PO SCH (09:07)
[2020-04-22] MEDS: QUEtiapine FUMARATE 25 MG TABLET PO SCH ×5 (09:07→22:47)
[2020-04-22] MEDS: METOPROLOL TARTRATE 25 MG TAB PO SCH ×3 (09:07→22:46)
[2020-04-22] MEDS: APIXABAN 5 MG TABLET PO SCH ×3 (09:07→22:46)
[2020-04-22] MEDS: PANTOprazole 40 MG TAB PO SCH (09:08)
--- NOTE | 2020-04-22 09:26 | Pharmacy Report ---
Glycemic Control Consultation - Date of Service April 22, 2020 - Scope Scope: Glycemic Pharmacist consulted for glycemic control and to write orders per [facility] inpatient glycemic control protocol. - Objective Weight: 62.5 kg Accuchecks BSG (last 24hrs): 04/21/20 04/21/20 04/21/20 09:15 09:30 12:41 Glucose 691 H* POC Glucose 578 H* POC Glucose (other) > 700 H* 04/21/20 04/21/20 04/21/20 13:50 14:35 16:42 Glucose 387 H* POC Glucose 416 H* 408 H* POC Glucose (other) 04/21/20 04/21/20 04/21/20 17:52 17:55 19:58 Glucose 211 H POC Glucose 217 H 210 H POC Glucose (other) 04/21/20 04/21/20 04/22/20 23:48 23:49 04:02 Glucose 97 90 POC Glucose 90 POC Glucose (other) 04/22/20 04/22/20 04:04 08:16 Glucose POC Glucose 89 95 POC Glucose (other) Laboratory Data (last 24hrs): 04/21/20 04/21/20 04/21/20 09:15 13:50 17:52 Potassium 5.0 3.7 D 3.5 Carbon Dioxide 16 L 23 25 Anion Gap 20.0 H 11.0 6.0 Creatinine 1.79 H 1.66 H 1.49 H Est Cr Clr Drug Dosing Not Reportable Not Reportable 41.3 Beta-Hydroxybutyric Acd 62.06 H 22.30 H 04/21/20 04/22/20 23:49 04:02 Potassium 5.1 D 4.4 Carbon Dioxide 26 25 Anion Gap 3.0 3.0 Creatinine 1.20 0.99 Est Cr Clr Drug Dosing 51.3 62.1 Beta-Hydroxybutyric Acd - Recent Pertinent Medications Outpatient Anti-diabetic Regimen: * Lantus 18 units SQ qPM + Humalog 6 units TIDM (hold for BSG < 150 mg/dL) * A1c = 10.9% (03/22/2020) Risk Factors for Insulin Resistance: * IVF: * Normosol-R at 60 cc/hr * Diet: * Clear liquids - Assessment & Plan Assessment & Plan: ASSESSMENT: * 69 yo M admitted from [facility] secondary to hyperglycemia. PMHx is significant for T1DM, bipolar disorder, afib, and HTN. Patient was recently admitted to [facility] for DKA from 03/21-03/30/2020. Pharmacy is consulted for inpatient glycemic management. * Staff at [facility] report patient refused insulin for the previous 3 days prior to admission. They would prefer if patient's Lantus could be transitioned to AM as he often gets agitated and refuses PM meds. * Admission BSG was 691 mg/dL. VBG pH was 7.24, HCO3 16, AG 20, Beta-OH 22.30. Patient was given a 6 unit IV insulin bolus followed by starting an IV insulin infusion. He received a total of 46.9 units of IV insulin over a 10 hour period. He was then given a 10 unit Lantus injection at approximately 8 pm. His BSGs trended down nicely: [id number] mg/dL. * Patient's Fasting BSG was 95 mg/dL this AM - well controlled * Since Lantus was given last evening, will give dose with lunch today with hopes to start AM Lantus tomorrow morning. Given FBG below goal and clear liquid diet, will give 15 units of Lantus for today. * Lunchtime BSG was 193 mg/dL * Patient has been started on Novolog based on a weight and stress of 2. PLAN FOR INPATIENT GLYCEMIC CONTROL: * IV insulin infusion has been stopped * Basal insulin * Lantus 15 units SQ with lunch today * Bolus insulin * NovoLog per scale ACHS or Q6hrs while NPO * Goal Range: Low 120 mg/dL - High 150 mg/dL * Correction Factor: 30 mg/dL/unit * Nutritional / Prandial insulin per carb ratio of 1 unit per 13 grams CHO consumed * Please note that the plan above was derived based on current level of insulin resistance and hospital stress. These recommendations are appropriate for inpatient admission only. Plan of care upon discharge will need to be reassessed to avoid potential outpatient hypo/hyperglycemia. Thank you.
[2020-04-22] MEDS ORDERED: VANCOMYCIN HCL 1,000 MG in SODIUM CHLORIDE 0.9% 250 ML IV SCH (12:00)
[2020-04-22] MEDS ORDERED: INSULIN GLARGINE SOLOSTAR 100 UNITS/ML 3 ML PEN SC ONE (12:15)
[2020-04-22 15:50] LABS: BUN Creatinine Ratio 15.8 (10-20); Calcium 8.3 mg/dl (8.5-10.1); Creatinine Clr Calc Pharmacy 54.8 ml/min; Est GFR (African American) 76.2; Est GFR (Non-African American) 65.7; Magnesium 2.1 mg/dl (1.8-2.4); Potassium 4.1 mmol/L (3.5-5.1)
[2020-04-22 15:55] LABS: Phosphorus 2.2 mg/dl (2.5-4.9)
[2020-04-22 16:12] LABS: Hematocrit (blood only) 29.5 % (42-52); Hemoglobin 9.6 g/dL (14.0-18.0); Mean Corpuscular Hemoglobin 29.4 pg (25-34); Mean Corpuscular Hgb Conc 32.5 g/dL (32-36); Mean Corpuscular Volume 90.5 fL (80-100); Mean Platelet Volume 10.1 fL (7.4-10.4); Platelet Count 230 K/uL (130-400); RDW Coefficient of Variation 15.2 % (11.5-14.5); RDW Standard Deviation 50.6 fL (36.4-46.3); Red Blood Count 3.26 M/uL (4.7-6.1); White Blood Count 9.23 K/uL (4.8-10.8)
[2020-04-22] MEDS ORDERED: POTASSIUM PHOS 3 MMOL/1 ML INFUSION IV STA (18:05)
[2020-04-22] MEDS ORDERED: POTASSIUM PHOSPHATE 9 MMOL in SODIUM CHLORIDE 0.9% 250 ML IV ONE (18:15)
[2020-04-22] MEDS: ATORVASTATIN 10 MG TAB PO SCH ×2 (20:23→22:46)
[2020-04-22] MEDS: SERTRALINE HCL 50 MG TABLET PO SCH ×2 (20:25→22:47)
[2020-04-22] MEDS ORDERED: ACETAMINOPHEN 325 MG TAB PO PRN (23:42)
--- NOTE | 2020-04-23 07:33 | Hospitalist Progress Note ---
Date of Service April 23, 2020 Assessment & Plan (1) DKA (diabetic ketoacidoses): (2) Diabetes mellitus type 1 with complications: -Patient presenting from [facility] for evaluation of vomiting and hyperglycemia -Has been refusing insulin the past few days prior to admission -In the ED, found to be in DKA with glucose over 700, VBG pH 7.24, anion gap 20, BMP bicarb 16, beta hydroxybutyric acid 22.3 -Received 2 L NSS followed by 0.45 NS w/ 20meq KCl @ 250/hr and started on insulin drip -Continued insulin drip and IVF per protocol -Serial BMP, electrolytes, VBG's -case discussed with Dr. Major, home health aid, initially on admission, now downgraded from ICU to PCU - will remove central line Staff at [facility] requesting that patient is transitioned to AM Lantus as he tends to get agitated in the evening and refuse medications (3) Leukocytosis: (4) Lactic acid acidosis: -WBC 19 K on admission -Lactic acid 4.3 -> 4.6 ->0.6 (now normalized) -HR and BP stable -likely d/t DKA, less likely d/t sepsis -Received IV Zosyn and IV Vanco in ED, Abx stopped in ICU -Concern for possible aspiration after vomiting; recheck CXR. Noted to be saturating well on room air. -UA- negative -Follow blood cultures (5) CHIVO (acute kidney injury): -Creatinine 1.6 (baseline ~ 0.8) -Likely prerenal in nature secondary to DKA -IVF -Hold losartan -Follow renal functions, now improved, creatinine 1.0 (normalized) (6) Paroxysmal A-fib: -Rate controlled on metoprolol, will continue -Anticoagulated on Eliquis, will continue (7) HTN (hypertension): -BP currently controlled, continuing metoprolol and holding losartan as above (8) Bipolar 1 disorder: -Managed on Seroquel, will continue (9) Bone lesion: -CT ABD/pelvis noted Unchanged L4 compression deformity with 1.8 cm lucent focus involving the posterior aspect of the vertebral body resulting in posterior cortical thinning raising the possibility of a pathologic fracture without retropulsion. Additionally, there is a subcentimeter lucent lesion involving the right iliac wing. Follow-up oncologic consultation with skeletal survey radiographs recommended. -Will need outpatient follow-up (10) DVT prophylaxis: -SQ heparin Admission and Anticipated Discharge Date Admission Date: April 21, 2020 Subjective Patient is lying in bed, in no acute distress, he mostly answers yes and no questions only. He has no complaints at this time, specifically denies any chest pain, shortness of breath, abdominal pain, nausea or vomiting. Review of Systems Review of Systems: All systems reviewed & are unremarkable except as noted in HPI & below Constitutional: no fever and no chills Respiratory: no cough and no dyspnea Cardiovascular: no chest pain and no palpitations Gastrointestinal: no abdominal pain, no nausea and no vomiting Physical Exam Physical Exam: Constitutional: Elderly male, lying in bed, WD/WN, vitals as above Eyes: PERRL, EOMI, conjunctivae normal, anicteric sclerae ENMT: external ear and nose normal, oropharynx normal Respiratory: no respiratory distress and no labored breathing Auscultation: + diminished lung sounds Cardiovascular: Rate/Rhythm: regular rate and regular rhythm Vessels: normal peripheral pulses Extremities: no edema Gastrointestinal (Abdomen): normal bowel sounds, soft, nontender, nondistended Musculoskeletal: no cyanosis or clubbing, extremities motor strength 5/5 Extremities: + amputation noted (Left BKA) Skin: no rashes, warm and dry Neurologic: PERRL, EOMI, accommodation nl, no face palsy, no dysarthria, moves extremities spontaneously Psychiatric: Orientation: alert and oriented to person; + not oriented to place and + not oriented to time Answers mostly only "yes or no" to all ques tions Results & Data Results & Data ([facility]) Vital Signs (Past 12 Hours) Vital Signs Temp Pulse Resp BP Pulse Ox 04/23/20 03:33 36.8 C 68 18 157/68 H 96 04/22/20 23:01 36.9 C 68 16 124/52 L 95 04/22/20 19:35 37.0 C 66 18 149/68 H 100 Medications Administered Current Inpatient Medications Acetaminophen (Acetaminophen 325 Mg Tab) 325 mg PO Q6H PRN PRN Reason: Mild Pain Stop: 05/22/20 23:41 Apixaban (Apixaban 5 Mg Tablet) 5 mg PO BID AYDEN Stop: 05/21/20 20:59 Last Admin: 04/24/20 08:44 Dose: 5 mg Documented by: Aspirin (Aspirin 81 Mg Ectab) 81 mg PO QAM [facility] Stop: 05/22/20 08:59 Last Admin: 04/24/20 08:44 Dose: 81 mg Documented by: Atorvastatin Calcium (Atorvastatin 10 Mg Tab) 10 mg PO HS [facility] Stop: 05/21/20 20:59 Last Admin: 04/23/20 21:22 Dose: 10 mg Documented by: Dextrose (Dextrose 50% 50 Ml Syringe) 25 - 50 ml IV UD PRN; Protocol PRN Reason: Hypoglycemia Protocol Stop: 05/23/20 21:44 Glucagon (Glucagon For Inj 1 Mg Vial) 1 mg IM UD PRN; Protocol PRN Reason: Hypoglycemia Protocol Stop: 05/23/20 21:44 Glucose (Glucose 40% Gel 15 Gm Tube) 15 - 30 gm PO UD PRN; Protocol PRN Reason: Hypoglycemia Protocol Stop: 05/23/20 21:44 Glucose (Glucose 10 Tabs/Tube) 4 - 8 tabs PO UD PRN; Protocol PRN Reason: Hypoglycemia Protocol Stop: 05/23/20 21:44 Heparin Sodium (Beef Lung) (Heparin 10 Unit/Ml 5 Ml Flush) 5 ml FLUSH PRN PRN PRN Reason: Flush Stop: 05/22/20 19:28 Last Admin: 04/23/20 09:57 Dose: 5 ml Documented by: Insulin Aspart (Insulin Aspart 100 Units/Ml 3 Ml Pen) 0 units SC DAILY@1130,1630,2100 [facility] Stop: 05/24/20 11:29 Insulin Aspart (Insulin Aspart 100 Units/Ml 3 Ml Pen) 0 units SC DAILY@0730 [facility] Stop: 05/25/20 07:29 Insulin Glargine (Insulin Glargine Solostar 100 Units/Ml 3 Ml Pen) 15 units SC [facility]; Protocol Stop: 05/23/20 08:59 Last Admin: 04/24/20 08:45 Dose: 15 units Documented by: Metoprolol Tartrate (Metoprolol Tartrate 25 Mg Tab) 25 mg PO BID [facility] Stop: 05/21/20 20:59 Last Admin: 04/24/20 08:45 Dose: 25 mg Documented by: Miscellaneous (Carbohydrates For Hypoglycemia ) 15 gm PO PRN PRN PRN Reason: Hypoglycemia Treatment Stop: 05/23/20 21:45 Last Admin: 04/23/20 21:25 Dose: 15 gm Documented by: Miscellaneous Information (Pharmacy Glycemic Mgmt Consult) 1 ea N/A UD PRN PRN Reason: Consult Stop: 05/21/20 15:44 Olanzapine (Olanzapine 10 Mg/2.1 Ml Sdv) 2.5 mg IM Q4H PRN PRN Reason: Anxiety/Agitation Stop: 05/22/20 06:31 Pantoprazole Sodium (Pantoprazole 40 Mg Tab) 40 mg PO [facility] Stop: 05/22/20 08:59 Last Admin: 04/24/20 08:46 Dose: 40 mg Documented by: Quetiapine Fumarate (Quetiapine Fumarate 25 Mg Tablet) 12.5 mg PO BID [facility] Stop: 05/21/20 20:59 Last Admin: 04/24/20 08:46 Dose: 12.5 mg Documented by: Quetiapine Fumarate (Quetiapine Fumarate 25 Mg Tablet) 25 mg PO [facility] Stop: 05/21/20 20:59 Last Admin: 04/23/20 21:21 Dose: 25 mg Documented by: Sertraline HCl (Sertraline Hcl 50 Mg Tablet) 50 mg PO [facility] Stop: 05/21/20 20:59 Last Admin: 04/23/20 21:22 Dose: 50 mg Documented by: (1) DKA (diabetic ketoacidoses) Diabetes mellitus complication detail: without coma Diabetes mellitus type: type 1 Qualified Code(s): E10.10 - Type 1 diabetes mellitus with ketoacidosis without coma (2) Leukocytosis Leukocytosis type: unspecified Qualified Code(s): D72.829 - Elevated white blood cell count, unspecified
[2020-04-23 08:05] LABS: Hematocrit (blood only) 31.5 % (42-52); Hemoglobin 10.1 g/dL (14.0-18.0); Mean Corpuscular Hemoglobin 28.5 pg (25-34); Mean Corpuscular Hgb Conc 32.1 g/dL (32-36); Mean Corpuscular Volume 88.7 fL (80-100); Mean Platelet Volume 9.7 fL (7.4-10.4); Platelet Count 233 K/uL (130-400); RDW Coefficient of Variation 14.7 % (11.5-14.5); RDW Standard Deviation 48.3 fL (36.4-46.3); Red Blood Count 3.55 M/uL (4.7-6.1)
[2020-04-23 08:26] LABS: BUN Creatinine Ratio 12.6 (10-20); Calcium 8.9 mg/dl (8.5-10.1); Creatinine Clr Calc Pharmacy 92.5 ml/min; Est GFR (African American) 113.1; Est GFR (Non-African American) 97.5; Magnesium 2.2 mg/dl (1.8-2.4); Phosphorus 2.5 mg/dl (2.5-4.9); Potassium 3.6 mmol/L (3.5-5.1)
--- NOTE | 2020-04-23 08:43 | Pharmacy Report ---
Pharmacy Glycemic Short Note 2 - Date of Service April 23, 2020 - Glycemic Short BSG Results (Last 24 hours): 04/22/20 04/22/20 04/22/20 11:42 15:10 16:28 Glucose 273 H POC Glucose 193 H 233 H 04/22/20 04/23/20 04/23/20 20:33 07:33 08:01 Glucose 80 POC Glucose 212 H 88 OUTPATIENT ANTIDIABETIC REGIMEN: * Lantus 18 units SQ qPM + Humalog 6 units TIDM (hold for BSG < 150 mg/dL) * A1c = 10.9% (03/22/2020) ASSESSMENT: 04/23/20 * BSGs trended up throughout the day yesterday, 95, 193, 233, and 212 mg/dL * Novolog parameters tightened yesterday - will loosen just slightly as patient has overcorrected in the past and experienced hypoglycemia * Fasting BSG this morning of 88 mg/dL * Will continue Lantus 15 units SC daily and change to AM dosing (given agitation at bedtime and subsequent refusal of Lantus) * Diet advanced to full liquid diet last evening 04/22/20 * 69 yo M admitted from [facility] secondary to hyperglycemia. PMHx is significant for T1DM, bipolar disorder, afib, and HTN. Patient was recently admitted to [facility] for DKA from 03/21-03/30/2020. Pharmacy is consulted for inpatient glycemic management. * Staff at [facility] report patient refused insulin for the previous 3 days prior to admission. They would prefer if patient's Lantus could be transitioned to AM as he often gets agitated and refuses PM meds. * Admission BSG was 691 mg/dL. VBG pH was 7.24, HCO3 16, AG 20, Beta-OH 22.30. Patient was given a 6 unit IV insulin bolus followed by starting an IV insulin infusion. He received a total of 46.9 units of IV insulin over a 10 hour period. He was then given a 10 unit Lantus injection at approximately 8 pm. His BSGs trended down nicely: [phone] mg/dL. * Patient's Fasting BSG was 95 mg/dL this AM - well controlled * Since Lantus was given last evening, will give dose with lunch today with hopes to start AM Lantus tomorrow morning. Given FBG below goal and clear liquid diet, will give 15 units of Lantus for today. * Lunchtime BSG was 193 mg/dL * Patient has been started on Novolog based on a weight and stress of 2. PLAN FOR INPATIENT GLYCEMIC CONTROL: * Hold outpatient oral diabetes medications * Basal insulin * Lantus 15 units SQ qAM * Given advancement to full liquid diet - patient may require increased Lantus dosing (will follow) * Bolus insulin * NovoLog per scale ACHS or Q6hrs while NPO * Goal Range: Low 120 mg/dL - High 150 mg/dL * Correction Factor: 30 mg/dL/unit * Nutritional / Prandial insulin per carb ratio of 1 unit per 10 grams CHO consumed PLAN FOR DISCHARGE: * HbA1c of 10.9% is significantly above goal of less than 7% * Likely in part due to refusal of insulin doses * Plan is to change Lantus to AM dosing due to patient agitation at bedtime and subsequent refusal of Lantus * Will follow inpatient insulin needs and make recommendations accordingly
[2020-04-23] MEDS: INSULIN ASPART 100 UNITS/ML 3 ML PEN SC SCH ×4 (08:52→21:49)
[2020-04-23] MEDS: APIXABAN 5 MG TABLET PO SCH ×2 (08:54→21:22)
[2020-04-23] MEDS: ASPIRIN 81 MG ECTAB PO SCH (08:54)
[2020-04-23] MEDS: INSULIN GLARGINE SOLOSTAR 100 UNITS/ML 3 ML PEN SC SCH (08:55)
[2020-04-23] MEDS: METOPROLOL TARTRATE 25 MG TAB PO SCH ×2 (08:56→21:22)
[2020-04-23] MEDS: QUEtiapine FUMARATE 25 MG TABLET PO SCH ×3 (08:56→21:21)
[2020-04-23] MEDS: PANTOprazole 40 MG TAB PO SCH (08:56)
[2020-04-23] MEDS ORDERED: CARBOHYDRATES FOR HYPOGLYCEMIA PO ONE (21:20)
[2020-04-23] MEDS: ATORVASTATIN 10 MG TAB PO SCH (21:22)
[2020-04-23] MEDS: SERTRALINE HCL 50 MG TABLET PO SCH (21:22)
[2020-04-23] MEDS: CARBOHYDRATES FOR HYPOGLYCEMIA PO PRN ×2 (21:25→22:36)
[2020-04-23] MEDS ORDERED: GLUCOSE 40% GEL 15 GM TUBE PO PRN (21:45)
[2020-04-23] MEDS ORDERED: GLUCAGON FOR INJ 1 MG VIAL IM PRN (21:45)
[2020-04-23] MEDS ORDERED: GLUCOSE 10 TABS/TUBE PO PRN (21:45)
[2020-04-23] MEDS ORDERED: DEXTROSE 50% 50 ML SYRINGE IV PRN (21:45)
[2020-04-24] MEDS: ASPIRIN 81 MG ECTAB PO SCH (08:44)
[2020-04-24] MEDS: APIXABAN 5 MG TABLET PO SCH ×2 (08:44→21:30)
[2020-04-24] MEDS: INSULIN ASPART 100 UNITS/ML 3 ML PEN SC SCH ×4 (08:44→21:55)
[2020-04-24] MEDS: METOPROLOL TARTRATE 25 MG TAB PO SCH ×2 (08:45→21:30)
[2020-04-24] MEDS: INSULIN GLARGINE SOLOSTAR 100 UNITS/ML 3 ML PEN SC SCH (08:45)
[2020-04-24] MEDS: QUEtiapine FUMARATE 25 MG TABLET PO SCH ×3 (08:46→21:32)
[2020-04-24] MEDS: PANTOprazole 40 MG TAB PO SCH (08:46)
--- NOTE | 2020-04-24 10:37 | Hospitalist Progress Note ---
Date of Service April 24, 2020 Assessment & Plan (1) DKA (diabetic ketoacidoses): (2) Diabetes mellitus type 1 with complications: -Patient presenting from [facility] for evaluation of vomiting and hyperglycemia -Has been refusing insulin the past few days prior to admission -In the ED, found to be in DKA with glucose over 700, VBG pH 7.24, anion gap 20, BMP bicarb 16, beta hydroxybutyric acid 22.3 -Received 2 L NSS followed by 0.45 NS w/ 20meq KCl @ 250/hr and started on insulin drip -Continued insulin drip and IVF per protocol -Serial BMP, electrolytes, VBG's -case discussed with Dr. Major, strategic advisor, initially on admission, now downgraded from ICU to floor - will remove central line Staff at [facility] requesting that patient is transitioned to AM Lantus as he tends to get agitated in the evening and refuse medications (3) Leukocytosis: (4) Lactic acid acidosis: -WBC 19 K on admission -Lactic acid 4.3 -> 4.6 ->0.6 (now normalized) -HR and BP stable -likely d/t DKA, less likely d/t sepsis -Received IV Zosyn and IV Vanco in ED, Abx stopped in ICU -Concern for possible aspiration after vomiting; recheck CXR. Noted to be saturating well on room air. -UA- negative -Follow blood cultures (5) CHIVO (acute kidney injury): -Creatinine 1.6 (baseline ~ 0.8) -Likely prerenal in nature secondary to DKA -IVF -Hold losartan -Follow renal functions, now improved, creatinine 1.0 (normalized) (6) Paroxysmal A-fib: -Rate controlled on metoprolol, will continue -Anticoagulated on Eliquis, will continue (7) HTN (hypertension): -BP currently controlled, continuing metoprolol and holding losartan as above (8) Bipolar 1 disorder: -Managed on Seroquel, will continue (9) Bone lesion: -CT ABD/pelvis noted Unchanged L4 compression deformity with 1.8 cm lucent focus involving the posterior aspect of the vertebral body resulting in posterior cortical thinning raising the possibility of a pathologic fracture without retropulsion. Additionally, there is a subcentimeter lucent lesion involving the right iliac wing. Follow-up oncologic consultation with skeletal survey radiographs recommended. -Will need outpatient follow-up (10) DVT prophylaxis: -SQ heparin Admission and Anticipated Discharge Date Admission Date: April 21, 2020 Subjective Patient is lying in bed, in no acute distress. He has no complaints at this time, specifically denies any chest pain, shortness of breath, abdominal pain, nausea or vomiting. Review of Systems Review of Systems: All systems reviewed & are unremarkable except as noted in HPI & below Constitutional: no fever and no chills Respiratory: no cough and no dyspnea Cardiovascular: no chest pain and no palpitations Gastrointestinal: no abdominal pain, no nausea and no vomiting Physical Exam Physical Exam: Constitutional: Elderly male, lying in bed, WD/WN, vitals as above Eyes: PERRL, EOMI, conjunctivae normal, anicteric sclerae ENMT: external ear and nose normal, oropharynx normal Respiratory: no respiratory distress and no labored breathing Auscultation: + diminished lung sounds Cardiovascular: Rate/Rhythm: regular rate and regular rhythm Vessels: normal peripheral pulses Extremities: no edema Gastrointestinal (Abdomen): normal bowel sounds, soft, nontender, nondistended Musculoskeletal: no cyanosis or clubbing, extremities motor strength 5/5 Extremities: + amputation noted (Left BKA) Skin: no rashes, warm and dry Neurologic: PERRL, EOMI, accommodation nl, no face palsy, no dysarthria, moves extremities spontaneously Psychiatric: Orientation: alert and oriented to person; + not oriented to place and + not oriented to time Answers mostly only "yes or no" to all questions Results & Data Results & Data ([facility]) Vital Signs (Past 12 Hours) Vital Signs Temp Pulse Resp BP Pulse Ox 04/24/20 08:11 36.8 C 66 18 144/63 H 98 04/24/20 04:12 147/75 H 04/24/20 03:53 36.6 C 65 17 173/52 H 98 04/23/20 23:55 36.5 C 65 17 148/68 H 96 Laboratory Results 04/24/20 04/24/20 04/24/20 Range/Units 11:29 10:55 10:55 WBC 6.20 (4.8-10.8) K/uL RBC 3.82 L (4.7-6.1) M/uL Hgb 10.8 L (14.0-18.0) g/dL Hct 33.9 L (42-52) % MCV 88.7 (80-100) fL MCH 28.3 (25-34) pg MCHC 31.9 L (32-36) g/dL RDW Std Deviation 48.2 H (36.4-46.3) fL RDW Coeff of Jace 14.8 H (11.5-14.5) % Plt Count 226 (130-400) K/uL MPV 9.3 (7.4-10.4) fL Sodium 139 (136-145) mmol/L Potassium 4.3 D (3.5-5.1) mmol/L Chloride 107 (98-107) mmol/L Carbon Dioxide 29 (21-32) mmol/L Anion Gap 4.0 (3-11) BUN 6 L (7-18) mg/dl Creatinine 0.88 (0.6-1.4) mg/dl Est Cr Clr Drug Dosing 72.5 ml/min Est GFR ( Amer) 102.3 Est GFR (Non-Af Amer) 88.3 BUN/Creatinine Ratio 7.1 L (10-20) Glucose 159 H (70-99) mg/dl POC Glucose 176 H (70-99) mg/dl Calcium 8.5 (8.5-10.1) mg/dl Phosphorus 3.2 (2.5-4.9) mg/dl Magnesium 2.1 (1.8-2.4) mg/dl 04/24/20 04/23/20 04/23/20 Range/Units 08:43 21:39 21:17 WBC (4.8-10.8) K/uL RBC (4.7-6.1) M/uL Hgb (14.0-18.0) g/dL Hct (42-52) % MCV (80-100) fL MCH (25-34) pg MCHC (32-36) g/dL RDW Std Deviation (36.4-46.3) fL RDW Coeff of Jace (11.5-14.5) % Plt Count (130-400) K/uL MPV (7.4-10.4) fL Sodium (136-145) mmol/L Potassium (3.5-5.1) mmol/L Chloride (98-107) mmol/L Carbon Dioxide (21-32) mmol/L Anion Gap (3-11) BUN (7-18) mg/dl Creatinine (0.6-1.4) mg/dl Est Cr Clr Drug Dosing ml/min Est GFR ( Amer) Est GFR (Non-Af Amer) BUN/Creatinine Ratio (10-20) Glucose (70-99) mg/dl POC Glucose 143 H 101 H 67 L* (70-99) mg/dl Calcium (8.5-10.1) mg/dl Phosphorus (2.5-4.9) mg/dl Magnesium (1.8-2.4) mg/dl 04/23/20 04/23/20 Range/Units 21:01 16:42 WBC (4.8-10.8) K/uL RBC (4.7-6.1) M/uL Hgb (14.0-18.0) g/dL Hct (42-52) % MCV (80-100) fL MCH (25-34) pg MCHC (32-36) g/dL RDW Std Deviation (36.4-46.3) fL RDW Coeff of Jace (11.5-14.5) % Plt Count (130-400) K/uL MPV (7.4-10.4) fL Sodium (136-145) mmol/L Potassium (3.5-5.1) mmol/L Chloride (98-107) mmol/L Carbon Dioxide (21-32) mmol/L Anion Gap (3-11) BUN (7-18) mg/dl Creatinine (0.6-1.4) mg/dl Est Cr Clr Drug Dosing ml/min Est GFR ( Amer) Est GFR (Non-Af Amer) BUN/Creatinine Ratio (10-20) Glucose (70-99) mg/dl POC Glucose 54 L* 131 H (70-99) mg/dl Calcium (8.5-10.1) mg/dl Phosphorus (2.5-4.9) mg/dl Magnesium (1.8-2.4) mg/dl Medications Administered Current Inpatient Medications Acetaminophen (Acetaminophen 325 Mg Tab) 325 mg PO Q6H PRN PRN Reason: Mild Pain Stop: 05/22/20 23:41 Apixaban (Apixaban 5 Mg Tablet) 5 mg PO BID [facility] Stop: 05/21/20 20:59 Last Admin: 04/24/20 08:44 Dose: 5 mg Documented by: Aspirin (Aspirin 81 Mg Ectab) 81 mg PO QAM [facility] Stop: 05/22/20 08:59 Last Admin: 04/24/20 08:44 Dose: 81 mg Documented by: Atorvastatin Calcium (Atorvastatin 10 Mg Tab) 10 mg PO HS [facility] Stop: 05/21/20 20:59 Last Admin: 04/23/20 21:22 Dose: 10 mg Documented by: Dextrose (Dextrose 50% 50 Ml Syringe) 25 - 50 ml IV UD PRN; Protocol PRN Reason: Hypoglycemia Protocol Stop: 05/23/20 21:44 Glucagon (Glucagon For Inj 1 Mg Vial) 1 mg IM UD PRN; Protocol PRN Reason: Hypoglycemia Protocol Stop: 05/23/20 21:44 Glucose (Glucose 40% Gel 15 Gm Tube) 15 - 30 gm PO UD PRN; Protocol PRN Reason: Hypoglycemia Protocol Stop: 05/23/20 21:44 Glucose (Glucose 10 Tabs/Tube) 4 - 8 tabs PO UD PRN; Protocol PRN Reason: Hypoglycemia Protocol Stop: 05/23/20 21:44 Heparin Sodium (Beef Lung) (Heparin 10 Unit/Ml 5 Ml Flush) 5 ml FLUSH PRN PRN PRN Reason: Flush Stop: 05/22/20 19:28 Last Admin: 04/23/20 09:57 Dose: 5 ml Documented by: Insulin Aspart (Insulin Aspart 100 Units/Ml 3 Ml Pen) 0 units SC DAILY@1130,1630,2100 [facility] Stop: 05/24/20 11:29 Insulin Aspart (Insulin Aspart 100 Units/Ml 3 Ml Pen) 0 units SC DAILY@0730 [facility] Stop: 05/25/20 07:29 Insulin Glargine (Insulin Glargine Solostar 100 Units/Ml 3 Ml Pen) 15 units SC [facility]; Protocol Stop: 05/23/20 08:59 Last Admin: 04/24/20 08:45 Dose: 15 units Documented by: Metoprolol Tartrate (Metoprolol Tartrate 25 Mg Tab) 25 mg PO BID [facility] Stop: 05/21/20 20:59 Last Admin: 04/24/20 08:45 Dose: 25 mg Documented by: Miscellaneous (Carbohydrates For Hypoglycemia ) 15 gm PO PRN PRN PRN Reason: Hypoglycemia Treatment Stop: 05/23/20 21:45 Last Admin: 04/23/20 21:25 Dose: 15 gm Documented by: Miscellaneous Information (Pharmacy Glycemic Mgmt Consult) 1 ea N/A UD PRN PRN Reason: Consult Stop: 05/21/20 15:44 Olanzapine (Olanzapine 10 Mg/2.1 Ml Sdv) 2.5 mg IM Q4H PRN PRN Reason: Anxiety/Agitation Stop: 05/22/20 06:31 Pantoprazole Sodium (Pantoprazole 40 Mg Tab) [facility] [place] Stop: 05/22/20 08:59 Last Admin: 04/24/20 08:46 Dose: 40 mg Documented by: Quetiapine Fumarate (Quetiapine Fumarate 25 Mg Tablet) 12.5 mg PO BID [facility] Stop: 05/21/20 20:59 Last Admin: 04/24/20 08:46 Dose: 12.5 mg Documented by: Quetiapine Fumarate (Quetiapine Fumarate 25 Mg Tablet) 25 mg PO [facility] Stop: 05/21/20 20:59 Last Admin: 04/23/20 21:21 Dose: 25 mg Documented by: Sertraline HCl (Sertraline Hcl 50 Mg Tablet) 50 mg PO [facility] Stop: 05/21/20 20:59 Last Admin: 04/23/20 21:22 Dose: 50 mg Documented by: (1) DKA (diabetic ketoacidoses) Diabetes mellitus complication detail: without coma Diabetes mellitus type: type 1 Qualified Code(s): E10.10 - Type 1 diabetes mellitus with ketoacidosis without coma (2) Leukocytosis Leukocytosis type: unspecified Qualified Code(s): D72.829 - Elevated white blood cell count, unspecified
[2020-04-24 11:05] LABS: Hematocrit (blood only) 33.9 % (42-52); Hemoglobin 10.8 g/dL (14.0-18.0); Mean Corpuscular Hemoglobin 28.3 pg (25-34); Mean Corpuscular Hgb Conc 31.9 g/dL (32-36); Mean Corpuscular Volume 88.7 fL (80-100); Mean Platelet Volume 9.3 fL (7.4-10.4); Platelet Count 226 K/uL (130-400); RDW Coefficient of Variation 14.8 % (11.5-14.5); RDW Standard Deviation 48.2 fL (36.4-46.3); Red Blood Count 3.82 M/uL (4.7-6.1)
[2020-04-24 11:45] LABS: BUN Creatinine Ratio 7.1 (10-20); Calcium 8.5 mg/dl (8.5-10.1); Creatinine Clr Calc Pharmacy 72.5 ml/min; Est GFR (African American) 102.3; Est GFR (Non-African American) 88.3; Magnesium 2.1 mg/dl (1.8-2.4); Phosphorus 3.2 mg/dl (2.5-4.9); Potassium 4.3 mmol/L (3.5-5.1)
[2020-04-24] MEDS ORDERED: LOSARTAN POTASSIUM 25 MG TAB PO ONE (14:30)
--- NOTE | 2020-04-24 15:03 | Pharmacy Report ---
Glycemic Control Progress Note - Date of Service April 24, 2020 - Scope Glycemic Pharmacist consulted for glycemic control to write orders per [facility] inpatient glycemic control protocol. - Objective Accuchecks BSG(last 24 hours):: 04/23/20 04/23/20 04/23/20 16:42 21:01 21:17 Glucose POC Glucose 131 H 54 L* 67 L* 04/23/20 04/24/20 04/24/20 21:39 08:43 10:55 Glucose 159 H POC Glucose 101 H 143 H 04/24/20 11:29 Glucose POC Glucose 176 H - Recent Pertinent Medications The patient is currently receiving: * Basal insulin: Lantus 15 units every 24 hours * Correctional Insulin: Novolog Correction per scale ACHS Goal Range: Low 120 mg/dL - High 150 mg/dL Correction Factor: 30 mg/dL/unit * Prandial insulin: Per carb ratio of 1 unit per 10 grams CHO consumed - Outpatient Anti-Diabetic Meds Lantus 18 units qPM Novolog 5 units with breakfast and dinner plus 3 units with lunch - Assessment & Plan ASSESSMENT: * See progress note from 04/22/2020 for more background info, in short: * Pt receiving SQ basal bolus insulin regimen for hyperglycemia secondary to baseline DM (outpatient regimen on hold). * Patient is currently receiving an average of 25 units of insulin per day * 15 units of basal insulin * 10 units of prandial/correctional insulin * BSGs ranging 54 - 199 mg/dl over the past 24hrs * Changes needed to insulin regimen: * AM Fasting BSG = 143 mg/dl. This is in goal range for patient based on inpatient targets and co-morbidities. Therefore Basal insulin will be continued at 15 units daily. * Post-prandial BSGs were reasonable yesterday until patient had hypoglycemia in the evening. Will try to replicate when was used in last admission which was tighter parameters for breakfast and looser parameters for lunch- bedtime. * Total daily dose = 25-30 units. PLAN FOR INPATIENT GLYCEMIC CONTROL: * Continuing Lantus 15 units SQ daily * Changing correction factor to 30 mg/dl/unit with breakfast and 40 mg/dl/unit with lunch-bedtime * Changing carb ratio to 1 unit per 9 grams CHO consumed with breakfast and 13 grams CHO consumed with lunch-bedtime * Continuing goal range of Low 120 mg/dL - High 150 mg/dL * Please note that the plan above was derived based on current level of insulin resistance and hospital stress. These recommendations are appropriate for inpatient admission only. Plan of care upon discharge will need to be reassessed to avoid potential outpatient hypo/hyperglycemia. Thank you.
[2020-04-24] MEDS: SERTRALINE HCL 50 MG TABLET PO SCH (21:32)
[2020-04-24] MEDS: ATORVASTATIN 10 MG TAB PO SCH (21:32)
[2020-04-25] MEDS ORDERED: INSULIN GLARGINE SOLOSTAR 100 UNITS/ML 3 ML PEN SC SCH (09:00)
[2020-04-25] MEDS: INSULIN ASPART 100 UNITS/ML 3 ML PEN SC SCH ×4 (09:15→21:58)
[2020-04-25] MEDS: QUEtiapine FUMARATE 25 MG TABLET PO SCH ×5 (09:18→21:57)
[2020-04-25] MEDS: PANTOprazole 40 MG TAB PO SCH (09:19)
[2020-04-25] MEDS: ASPIRIN 81 MG ECTAB PO SCH (09:19)
[2020-04-25] MEDS: METOPROLOL TARTRATE 25 MG TAB PO SCH ×3 (09:19→21:57)
[2020-04-25] MEDS: APIXABAN 5 MG TABLET PO SCH ×3 (09:19→21:57)
[2020-04-25] MEDS: LOSARTAN POTASSIUM 25 MG TAB PO SCH (10:17)
[2020-04-25] MEDS: CARBOHYDRATES FOR HYPOGLYCEMIA PO PRN ×2 (17:21→17:37)
--- NOTE | 2020-04-25 19:55 | Hospitalist Progress Note ---
Date of Service April 25, 2020 Assessment & Plan (1) DKA (diabetic ketoacidoses): (2) Diabetes mellitus type 1 with complications: -Patient presenting from [facility] for evaluation of vomiting and hyperglycemia -Has been refusing insulin the past few days prior to admission -In the ED, found to be in DKA with glucose over 700, VBG pH 7.24, anion gap 20, BMP bicarb 16, beta hydroxybutyric acid 22.3 -Received 2 L NSS followed by 0.45 NS w/ 20meq KCl @ 250/hr and started on insulin drip -Continued insulin drip and IVF per protocol -Serial BMP, electrolytes, VBG's - anion gap closed, clinically pt much improved Staff at [facility] requesting that patient is transitioned to AM Lantus as he tends to get agitated in the evening and refuse medications (3) Leukocytosis: (4) Lactic acid acidosis: -WBC 19 K on admission -Lactic acid 4.3 -> 4.6 ->0.6 (now normalized) -HR and BP stable -likely d/t DKA, less likely d/t sepsis -Received IV Zosyn and IV Vanco in ED, Abx stopped in ICU -Concern for possible aspiration after vomiting; recheck CXR. Noted to be saturating well on room air. -UA- negative -Follow blood cultures (5) CHIVO (acute kidney injury): -Creatinine 1.6 (baseline ~ 0.8) -Likely prerenal in nature secondary to DKA -IVF -Hold losartan, plan to resume prior to dc -Follow renal functions, now improved, creatinine 1.0 (normalized) Decreased urination - noted on 04/25 - poor oral intake - bladder scan ~150cc - encourage po intake (6) Paroxysmal A-fib: -Rate controlled on metoprolol, will continue -Anticoagulated on Eliquis, will continue (7) HTN (hypertension): -BP currently controlled, continuing metoprolol and holding losartan as above -resume losartan prior to dc (8) Bipolar 1 disorder: -Managed on Seroquel, will continue (9) Bone lesion: -CT ABD/pelvis noted Unchanged L4 compression deformity with 1.8 cm lucent focus involving the posterior aspect of the vertebral body resulting in posterior cortical thinning raising the possibility of a pathologic fracture without retropulsion. Additionally, there is a subcentimeter lucent lesion involving the right iliac wing. Follow-up oncologic consultation with skeletal survey radiographs recommended. -Will need outpatient follow-up (10) DVT prophylaxis: -SQ heparin Admission and Anticipated Discharge Date Admission Date: April 21, 2020 Subjective Patient is lying in bed, in no acute distress. He has no complaints at this time, specifically denies any chest pain, shortness of breath, abdominal pain, nausea or vomiting. Nursing staff reports minimal urine output today. Poor Po intake. Review of Systems Review of Systems: All systems reviewed & are unremarkable except as noted in HPI & below Constitutional: no fever and no chills Respiratory: no cough and no dyspnea Cardiovascular: no chest pain and no palpitations Gastrointestinal: no abdominal pain, no nausea and no vomiting Genitourinary: + decreased urination Physical Exam Physical Exam: Constitutional: Elderly male, lying in bed, WD/WN, vitals as above Eyes: PERRL, EOMI, conjunctivae normal, anicteric sclerae ENMT: external ear and nose normal, oropharynx normal Respiratory: no respiratory distress and no labored breathing Auscultation: + diminished lung sounds Cardiovascular: Rate/Rhythm: regular rate and regular rhythm Vessels: normal peripheral pulses Extremities: no edema Gastrointestinal (Abdomen): normal bowel sounds, soft, nontender, nondistended Musculoskeletal: no cyanosis or clubbing, extremities motor strength 5/5 Extremities: + amputation noted (Left BKA) Skin: no rashes, warm and dry Neurologic: PERRL, EOMI, no face palsy, no dysarthria, moves extremities spontaneously Psychiatric: Orientation: alert and oriented to person; + not oriented to place and + not oriented to time Answers mostly only "yes or no" to all questions Results & Data Results & Data ([facility]) Vital Signs (Past 12 Hours) Vital Signs Temp Pulse Resp BP Pulse Ox 04/25/20 15:49 37.1 C 78 18 127/77 95 04/25/20 08:37 36.5 C 71 18 113/52 L 95 (1) DKA (diabetic ketoacidoses) Diabetes mellitus complication detail: without coma Diabetes mellitus type: type 1 Qualified Code(s): E10.10 - Type 1 diabetes mellitus with ketoacidosis without coma (2) Leukocytosis Leukocytosis type: unspecified Qualified Code(s): D72.829 - Elevated white blood cell count, unspecified
[2020-04-25] MEDS: ATORVASTATIN 10 MG TAB PO SCH ×2 (21:11→21:57)
[2020-04-25] MEDS: SERTRALINE HCL 50 MG TABLET PO SCH ×2 (21:13→21:57)
[2020-04-26] MEDS: LOSARTAN POTASSIUM 25 MG TAB PO SCH (08:55)
[2020-04-26] MEDS: METOPROLOL TARTRATE 25 MG TAB PO SCH ×2 (08:56→20:12)
[2020-04-26] MEDS: ASPIRIN 81 MG ECTAB PO SCH (08:56)
[2020-04-26] MEDS: APIXABAN 5 MG TABLET PO SCH ×2 (08:56→20:05)
[2020-04-26] MEDS: PANTOprazole 40 MG TAB PO SCH (08:57)
[2020-04-26] MEDS: QUEtiapine FUMARATE 25 MG TABLET PO SCH ×3 (08:57→20:06)
[2020-04-26] MEDS ORDERED: INSULIN GLARGINE SOLOSTAR 100 UNITS/ML 3 ML PEN SC SCH (09:00)
[2020-04-26] MEDS: INSULIN ASPART 100 UNITS/ML 3 ML PEN SC SCH ×4 (09:05→20:15)
--- NOTE | 2020-04-26 09:59 | Pharmacy Report ---
Pharmacy Glycemic Short Note 2 - Date of Service April 26, 2020 - Glycemic Short BSG Results (Last 24 hours): OUTPATIENT ANTIDIABETIC REGIMEN: * Lantus 18 units SQ qPM + Humalog 6 units TIDM (hold for BSG < 150 mg/dL) * A1c = 10.9% (03/22/2020) ASSESSMENT: 04/26: * Bhavin received a total of 22 units of insulin yesterday * 16 units basal + 6 units bolus * BSGs were [phone] mg/dL - adequate control * Patient did experience hypoglycemia at dinner time last night. BSG was 58 mg/dL. He did require 30 gm of carbohydrates to increased BSG to 79 mg/dL. * For this reason, patient's CR was loosened. * Fasting BSG this AM was elevated at 173 mg/dL * Will continue with current basal insulin dose as this may be secondary to uncovered meal last evening. PLAN FOR INPATIENT GLYCEMIC CONTROL: * Basal insulin * Lantus 15 units SQ qAM * Bolus insulin * NovoLog per scale ACHS or Q6hrs while NPO * Goal Range: Low 120 mg/dL - High 150 mg/dL * With Breakfast: Correction Factor = 30 & Carbohydrate Ratio = 9 * With Lunch, Dinner and Bedtime: Correction Factor = 40 & Carbohydrate Ratio = 15 PLAN FOR DISCHARGE: * HbA1c of 10.9% is significantly above goal of less than 7% * Likely in part due to refusal of insulin doses * Plan is to change Lantus to AM dosing due to patient agitation at bedtime and subsequent refusal of Lantus * Will follow inpatient insulin needs and make recommendations accordingly
[2020-04-26] MEDS: ATORVASTATIN 10 MG TAB PO SCH (20:05)
[2020-04-26] MEDS: SERTRALINE HCL 50 MG TABLET PO SCH (20:07)
--- NOTE | 2020-04-26 23:38 | Hospitalist Progress Note ---
Date of Service April 26, 2020 Assessment & Plan (1) DKA (diabetic ketoacidoses): (2) Diabetes mellitus type 1 with complications: -Patient presenting from [facility] for evaluation of vomiting and hyperglycemia -Has been refusing insulin the past few days prior to admission -In the ED, found to be in DKA with glucose over 700, VBG pH 7.24, anion gap 20, BMP bicarb 16, beta hydroxybutyric acid 22.3 -Received 2 L NSS followed by 0.45 NS w/ 20meq KCl @ 250/hr and started on insulin drip -Continued insulin drip and IVF per protocol -Serial BMP, electrolytes, VBG's - anion gap closed, clinically pt much improved Staff at [facility] requesting that patient is transitioned to AM Lantus as he tends to get agitated in the evening and refuse medications (3) Leukocytosis: (4) Lactic acid acidosis: -WBC 19 K on admission -Lactic acid 4.3 -> 4.6 ->0.6 (now normalized) -HR and BP stable -likely d/t DKA, less likely d/t sepsis -Received IV Zosyn and IV Vanco in ED, Abx stopped in ICU -Concern for possible aspiration after vomiting; recheck CXR. Noted to be saturating well on room air. -UA- negative -blood cultures-negative (5) CHIVO (acute kidney injury): -Creatinine 1.6 (baseline ~ 0.8) -Likely prerenal in nature secondary to DKA -IVF -Hold losartan, plan to resume prior to dc -Follow renal functions, now improved, creatinine 1.0 (normalized) Decreased urination - noted on 04/25 - poor oral intake - bladder scan ~150cc - encourage po intake - improved urine output now, encourage oral intake (6) Paroxysmal A-fib: -Rate controlled on metoprolol, will continue -Anticoagulated on Eliquis, will continue (7) HTN (hypertension): -BP currently controlled, continuing metoprolol and holding losartan as above -resume losartan prior to dc (8) Bipolar 1 disorder: -Managed on Seroquel, will continue (9) Bone lesion: -CT ABD/pelvis noted Unchanged L4 compression deformity with 1.8 cm lucent focus involving the posterior aspect of the vertebral body resulting in posterior cortical thinning raising the possibility of a pathologic fracture without retropulsion. Additionally, there is a subcentimeter lucent lesion involving the right iliac wing. Follow-up oncologic consultation with skeletal survey radiographs recommended. -Will need outpatient follow-up (10) DVT prophylaxis: -SQ heparin Admission and Anticipated Discharge Date Admission Date: April 21, 2020 Subjective Patient is lying in bed, in no acute distress. He has no complaints at this time, specifically denies any chest pain, shortness of breath, abdominal pain, nausea or vomiting. Nursing staff reports minimal urine output today. Poor Po intake. Review of Systems Review of Systems: All systems reviewed & are unremarkable except as noted in HPI & below Constitutional: no fever and no chills Respiratory: no cough and no dyspnea Cardiovascular: no chest pain and no palpitations Gastrointestinal: no abdominal pain, no nausea and no vomiting Physical Exam Physical Exam: Constitutional: Elderly male, lying in bed, WD/WN, vitals as above Eyes: PERRL, EOMI, conjunctivae normal, anicteric sclerae ENMT: external ear and nose normal, oropharynx normal Respiratory: no respiratory distress and no labored breathing Auscultation: + diminished lung sounds Cardiovascular: Rate/Rhythm: regular rate and regular rhythm Vessels: normal peripheral pulses Extremities: no edema Gastrointestinal (Abdomen): normal bowel sounds, soft, nontender, nondistended Musculoskeletal: no cyanosis or clubbing, extremities motor strength 5/5 Extremities: + amputation noted (Left BKA) Skin: no rashes, warm and dry Neurologic: PERRL, EOMI, no face palsy, no dysarthria, moves extremities spontaneously Psychiatric: Orientation: alert and oriented to person; + not oriented to place and + not oriented to time Answers mostly only "yes or no" to all questions Results & Data Results & Data ([facility]) Vital Signs (Past 12 Hours) Vital Signs Temp Pulse Pulse Resp BP BP Pulse Ox 04/26/20 20:08 37.0 C 65 18 133/44 L 96 04/26/20 15:13 36.5 C 63 17 131/54 L 98 (1) DKA (diabetic ketoacidoses) Diabetes mellitus complication detail: without coma Diabetes mellitus type: type 1 Qualified Code(s): E10.10 - Type 1 diabetes mellitus with ketoacidosis without coma (2) Leukocytosis Leukocytosis type: unspecified Qualified Code(s): D72.829 - Elevated white blood cell count, unspecified
--- NOTE | 2020-04-27 07:56 | Hospitalist Progress Note ---
Date of Service April 27, 2020 Assessment & Plan (1) DKA (diabetic ketoacidoses): (2) Diabetes mellitus type 1 with complications: -Patient presenting from [facility] for evaluation of vomiting and hyperglycemia -Has been refusing insulin the past few days prior to admission -In the ED, found to be in DKA with glucose over 700, VBG pH 7.24, anion gap 20, BMP bicarb 16, beta hydroxybutyric acid 22.3 -Received 2 L NSS followed by 0.45 NS w/ 20meq KCl @ 250/hr and started on insulin drip -Continued insulin drip and IVF per protocol -Serial BMP, electrolytes, VBG's - anion gap closed, clinically pt much improved - Staff at [facility] requesting that patient is transitioned to AM Lantus as he tends to get agitated in the evening and refuse medications -New recs: Insulin discharge instructions Change Lantus to AM dosing due to patient agitation at bedtime and subsequent refusal of Lantus Lantus 18 units SC qAM Dinner Novolog to 3 units (down from 5 units) Continue Novolog 5 units with breakfast and 3 units with lunch (3) Leukocytosis: (4) Lactic acid acidosis: -WBC 19 K on admission -Lactic acid 4.3 -> 4.6 ->0.6 (now normalized) -HR and BP stable -likely d/t DKA, less likely d/t sepsis -Received IV Zosyn and IV Vanco in ED, Abx stopped in ICU -Concern for possible aspiration after vomiting; recheck CXR. Noted to be saturating well on room air. -UA- negative -blood cultures-negative (5) CHIVO (acute kidney injury): -Creatinine 1.6 (baseline ~ 0.8) -Likely prerenal in nature secondary to DKA -IVF -Hold losartan, plan to resume prior to dc -Follow renal functions, now improved, creatinine 1.0 (normalized) Decreased urination - noted on 04/25 - poor oral intake - bladder scan ~150cc - encourage po intake - improved urine output now, encourage oral intake (6) Paroxysmal A-fib: -Rate controlled on metoprolol, will continue -Anticoagulated on Eliquis, will continue (7) HTN (hypertension): -BP currently controlled, continuing metoprolol and holding losartan as above -resume losartan prior to dc (8) Bipolar 1 disorder: -Managed on Seroquel, will continue (9) Bone lesion: -CT ABD/pelvis noted Unchanged L4 compression deformity with 1.8 cm lucent focus involving the posterior aspect of the vertebral body resulting in posterior cortical thinning raising the possibility of a pathologic fracture without retropulsion. Additionally, there is a subcentimeter lucent lesion involving the right iliac wing. Follow-up oncologic consultation with skeletal survey radiographs recommended. -Will need outpatient follow-up (10) DVT prophylaxis: -SQ heparin Admission and Anticipated Discharge Date Admission Date: April 21, 2020 Subjective Patient is lying in bed, in no acute distress. He has no complaints at this time, specifically denies any chest pain, shortness of breath, abdominal pain, nausea or vomiting. Review of Systems Review of Systems: All systems reviewed & are unremarkable except as noted in HPI & below Constitutional: no fever and no chills Respiratory: no cough and no dyspnea Cardiovascular: no chest pain and no palpitations Gastrointestinal: no abdominal pain, no nausea and no vomiting Physical Exam Physical Exam: Constitutional: Elderly male, lying in bed, WD/WN, vitals as above Eyes: PERRL, EOMI, conjunctivae normal, anicteric sclerae ENMT: external ear and nose normal, oropharynx normal Respiratory: no respiratory distress and no labored breathing Auscultation: + diminished lung sounds Cardiovascular: Rate/Rhythm: regular rate and regular rhythm Vessels: normal peripheral pulses Extremities: no edema Gastrointestinal (Abdomen): normal bowel sounds, soft, nontender, nondistended Musculoskeletal: no cyanosis or clubbing, extremities motor strength 5/5 Extremities: + amputation noted (Left BKA) Skin: no rashes, warm and dry Neurologic: PERRL, EOMI, no face palsy, no dysarthria, moves extremities spontaneously Psychiatric: Orientation: alert and oriented to person; + not oriented to place and + not oriented to time Answers mostly only "yes or no" to all questions Results & Data Results & Data ([facility]) Vital Signs (Past 12 Hours) Vital Signs Temp Pulse Pulse Resp BP Pulse Ox 04/27/20 07:33 36.7 C 64 18 118/57 L 97 04/26/20 20:08 37.0 C 65 18 133/44 L 96 (1) DKA (diabetic ketoacidoses) Diabetes mellitus complication detail: without coma Diabetes mellitus type: type 1 Qualified Code(s): E10.10 - Type 1 diabetes mellitus with ketoacidosis without coma (2) Leukocytosis Leukocytosis type: unspecified Qualified Code(s): D72.829 - Elevated white blood cell count, unspecified
[2020-04-27] MEDS: QUEtiapine FUMARATE 25 MG TABLET PO SCH (08:25)
[2020-04-27] MEDS: PANTOprazole 40 MG TAB PO SCH (08:25)
[2020-04-27] MEDS: METOPROLOL TARTRATE 25 MG TAB PO SCH (08:26)
[2020-04-27] MEDS: LOSARTAN POTASSIUM 25 MG TAB PO SCH (08:27)
[2020-04-27] MEDS: APIXABAN 5 MG TABLET PO SCH (08:27)
[2020-04-27] MEDS: ASPIRIN 81 MG ECTAB PO SCH (08:27)
[2020-04-27] MEDS: INSULIN ASPART 100 UNITS/ML 3 ML PEN SC SCH (08:32)
[2020-04-27] MEDS ORDERED: INSULIN GLARGINE SOLOSTAR 100 UNITS/ML 3 ML PEN SC SCH ×2 (09:00)
--- NOTE | 2020-04-27 11:37 | Pharmacy Report ---
Pharmacy Glycemic Short Note 2 - Date of Service April 27, 2020 - Glycemic Short BSG Results (Last 24 hours): 04/26/20 04/26/20 04/26/20 12:00 16:57 20:17 POC Glucose 221 H 145 H 100 H 04/26/20 04/27/20 04/27/20 23:58 00:03 00:19 POC Glucose 61 L* 64 L* 59 L* 04/27/20 04/27/20 04/27/20 01:54 06:52 08:08 POC Glucose 168 H 215 H 206 H OUTPATIENT ANTIDIABETIC REGIMEN: * Lantus 18 units SQ qPM + Humalog 6 units TIDM (hold for BSG < 150 mg/dL) * A1c = 10.9% (03/22/2020) ASSESSMENT: 04/27: * Bhavin received a total of 25 units of insulin yesterday * 15 units basal + 10 units bolus * BSGs were 173, 221, 145, 100, and 61 mg/dL * Fasting BSG this AM was elevated at 215 mg/dL * Will increase Lantus to 18 units SC qAM starting today * Discharge today PLAN FOR INPATIENT GLYCEMIC CONTROL: * Basal insulin * Lantus 18 units SQ qAM * Bolus insulin * NovoLog per scale ACHS or Q6hrs while NPO * Goal Range: Low 120 mg/dL - High 150 mg/dL * With Breakfast: Correction Factor = 30 & Carbohydrate Ratio = 9 * With Lunch, Dinner and Bedtime: Correction Factor = 40 & Carbohydrate Ratio = 15 PLAN FOR DISCHARGE: * HbA1c of 10.9% is significantly above goal of less than 7% * Likely in part due to refusal of insulin doses * Plan is to change Lantus to AM dosing due to patient agitation at bedtime and subsequent refusal of Lantus * Lantus 18 units SC qAM * Given hypoglycemia at bedtime - would suggest decreasing dinner Novolog to 3 units (from 5 units) * Continue Novolog 5 units with breakfast and 3 units with lunch
--- NOTE | 2020-04-27 12:10 | Discharge Summary ---
Date of Service April 27, 2020 Admission HPI Per Admitting Provider 69-year-old male with PMH DM type I, bipolar disorder, paroxysmal atrial fibrillation anticoagulated on Eliquis, HTN, and other problems listed below who presents the ED from [facility] for evaluation of vomiting and hyperglycemia. Patient recently admitted to [facility] 03/21 through 03/30 for management of DKA, CHIVO, hyperkalemia. Patient required intubation during that admission. Patient is a poor historian, therefore history is obtained from the staff at [facility]. Staff reports the patient has been refusing his insulin for the past 3 days. This morning, he developed vomiting and blood sugar was found to be over 600. He was then sent to the ED for further evaluation. No other symptoms are reported. In the ED, patient was vomiting with his facemask on and there was some concern for aspiration. Patient is currently saturating well on room air and in no respiratory distress. Initial glucose 691, VBG pH 7.24, HCO3 on BMP 16, anion gap 20. WBC 19 K. Lactic acid 4.3. Patient received 2 L NSS fo llowed by 0.45 NS w/ 20meq KCL @ 250/hr, insulin drip, IV prochlorperazine, IV Zosyn, IV Vanco, IV famotidine. Admission Exam Per Admitting Provider Constitutional: WD/WN, vitals as above Eyes: PERRL, conjunctivae normal, anicteric sclerae ENMT: external ear and nose normal, oropharynx normal Respiratory: + abnormal respiratory effort (Poor inspiratory effort), no respiratory distress and no labored breathing Auscultation: + diminished lung sounds Cardiovascular: Rate/Rhythm: regular rate and regular rhythm Vessels: normal peripheral pulses Extremities: no edema Gastrointestinal (Abdomen): normal bowel sounds, soft, nontender, no hepatosplenomegaly Musculoskeletal: no cyanosis or clubbing, extremities motor strength 5/5 Extremities: + amputation noted (Left BKA) Skin: no rashes, warm and dry Neurologic: PERRL, EOMI, accommodation nl, no face palsy, no dysarthria Psychiatric: Orientation: alert and oriented to person; + not oriented to place and + not oriented to time Answers "no" to all questions asked Principal Diagnosis DKA secondary to noncompliance with insulin use CHIVO Discharge Exam Constitutional: Elderly male, lying in bed, WD/WN, vitals as above Eyes: PERRL, EOMI, conjunctivae normal, anicteric sclerae ENMT: external ear and nose normal, oropharynx normal Respiratory: no respiratory distress and no labored breathing Auscultation: + diminished lung sounds Cardiovascular: Rate/Rhythm: regular rate and regular rhythm Vessels: normal peripheral pulses Extremities: no edema Gastrointestinal (Abdomen): normal bowel sounds, soft, nontender, nondistended Musculoskeletal: no cyanosis or clubbing, extremities motor strength 5/5 Extremities: + amputation noted (Left BKA) Skin: no rashes, warm and dry Neurologic: PERRL, EOMI, no face palsy, no dysarthria, moves extremities spontaneously Psychiatric: Orientation: alert and oriented to person; + not oriented to place and + not oriented to time Answers mostly only "yes or no" to all questions Discharge Data Allergies Allergy/AdvReac Type Severity Reaction Status Date / Time No Known Allergies Allergy Verified 04/26/20 17:08 Consultations 04/21/20 12:28 ED Decision to Admit Stat 04/21/20 15:40 Consult Case Management - Discharge Planning Routine Consult Diesel Machinist Routine Ordered Studies 04/21/20 10:28 CT head/brain wo con Stat IMPRESSION: No change from the preceding study. No acute intracranial findings. 04/21/20 10:51 CT abd pelvis wo con Stat IMPRESSION: 1. No bowel obstruction or bowel wall thickening. Noninflamed appendix. 2. Mild urinary bladder distention with prostamegaly. 3. Unchanged L4 compression deformity with 1.8 cm lucent focus involving the posterior aspect of the vertebral body resulting in posterior cortical thinning raising the possibility of a pathologic fracture without retropulsion. Additionally, there is a subcentimeter lucent lesion involving the right iliac wing. Follow-up oncologic consultation with skeletal survey radiographs recommended. 4. Additional findings as above. Hospital Course (1) DKA (diabetic ketoacidoses): (2) Diabetes mellitus type 1 with complications: -Patient presenting from [facility] for evaluation of vomiting and hyperglycemia -Has been refusing insulin the past few days prior to admission -In the ED, found to be in DKA with glucose over 700, VBG pH 7.24, anion gap 20, BMP bicarb 16, beta hydroxybutyric acid 22.3 -Received 2 L NSS followed by 0.45 NS w/ 20meq KCl @ 250/hr and started on insulin drip -Continued insulin drip and IVF per protocol -Serial BMP, electrolytes, VBG's - anion gap closed, clinically pt much improved - Staff at [facility] requesting that patient is transitioned to AM Lantus as he tends to get agitated in the evening and refuse medications -New recs: Insulin discharge instructions Change Lantus to AM dosing due to patient agitation at bedtime and subsequent refusal of Lantus Lantus 18 units SC qAM Dinner Novolog to 3 units (down from 5 units) Continue Novolog 5 units with breakfast and 3 units with lunch (3) Leukocytosis: (4) Lactic acid acidosis: -WBC 19 K on admission -Lactic acid 4.3 -> 4.6 ->0.6 (now normalized) -HR and BP stable -likely d/t DKA, less likely d/t sepsis -Received IV Zosyn and IV Vanco in ED, Abx stopped in ICU -Concern for possible aspiration after vomiting; recheck CXR. Noted to be saturating well on room air. -UA- negative -blood cultures-negative (5) CHIVO (acute kidney injury): -Creatinine 1.6 (baseline ~ 0.8) -Likely prerenal in nature secondary to DKA -IVF -Hold losartan, plan to resume prior to dc -Follow renal functions, now improved, creatinine 1.0 (normalized) Decreased urination - noted on 04/25 - poor oral intake - bladder scan ~150cc - encourage po intake - improved urine output now, encourage oral intake (6) Paroxysmal A-fib: -Rate controlled on metoprolol, will continue -Anticoagulated on Eliquis, will continue (7) HTN (hypertension): -BP currently controlled, continuing metoprolol and holding losartan as above -resume losartan prior to dc (8) Bipolar 1 disorder: -Managed on Seroquel, will continue (9) Bone lesion: -CT ABD/pelvis noted Unchanged L4 compression deformity with 1.8 cm lucent focus involving the posterior aspect of the vertebral body resulting in posterior cortical thinning raising the possibility of a pathologic fracture without retropulsion. Additionally, there is a subcentimeter lucent lesion involving the right iliac wing. Follow-up oncologic consultation with skeletal survey radiographs recommended. -Will need outpatient follow-up (10) DVT prophylaxis: -SQ heparin Total Time Total Time Spent Total Time Spent (In Minutes): 40 Total Time Includes: Examination of the Patient, Discharge Planning and Medication Reconciliation Discharge Plan Discharge Items Patient Disposition: Transfer [facility] Care Fac Reason For Visit: HYPERGLYCEMIA Discharge Diagnosis: DKA secondary to noncompliance with insulin CHIVO Activity: Per Instructions section Non-emergency contact: Primary Care Provider Call non-emergency contact if: you have any medication questions and your symptoms worsen Follow-up/Referrals: PHUONG CONN [Primary Care Provider] - Diet: Carb Count or DM1 Addtl Attending Provider Instructions: It is crucial that you use insulin every single day given your diabetes mellitus type 1. Without insulin, your blood sugar will be high and you will become sick. Your insulin regimen has been changed by our glycemic pharmacist to better accommodate your needs and needs of the nursing staff at your facility. This will hopefully prevent unnecessary episodes of diabetic ketoacidosis and its complications. Addtl Sweater Operator Provider Instructions: Insulin discharge instructions Change Lantus to AM dosing due to patient agitation at bedtime and subsequent refusal of Lantus Lantus 18 units SC qAM Dinner Novolog to 3 units (down from 5 units) Continue Novolog 5 units with breakfast and 3 units with lunch Pending Studies at Discharge: No Stand-Alone Forms: [facility] Skilled Items Patient informed of condition?: Yes DNR: No Discharge Level of Care: Skilled Communicable Disease: No Discharge Prognosis: Stable Lines: None Urinary Catheter: No Medications and DC Order Prescriptions: New Lantus Solostar U-100 Insulin 100 unit/mL (3 mL) Insulin Pen 18 unit SC QAM 30 Days Qty: 5.4 RF: 0 Continued losartan 50 mg Tablet 50 mg PO QAM 30 Days Qty: 30 RF: 0 Eliquis 5 mg Tablet 5 mg PO BID 30 Days Qty: 60 RF: 0 sertraline 50 mg Tablet 50 mg PO HS 30 Days Qty: 30 RF: 0 quetiapine 25 mg tablet 12.5 mg PO BID 30 Days Qty: 30 RF: 0 quetiapine 25 mg tablet 25 mg PO HS 30 Days Qty: 30 RF: 0 atorvastatin 10 mg tablet 10 mg PO HS 30 Days Qty: 30 RF: 0 acetaminophen [Tylenol] 325 mg Tablet 650 mg PO Q6H PRN (Reason: Pain and Fever) 30 Days Qty: 14 RF: 0 calcium carbonate 500 mg calcium (1,250 mg) Tablet 500 mg PO QAM Qty: 7 RF: 0 dextrose 40 % Gel 1 ea PO UD PRN (Reason: Low BSG) 30 Days Qty: 37.5 RF: 0 cholecalciferol (vitamin D3) 25 mcg (1,000 unit) Capsule 1,000 unit PO QAM 30 Days Qty: 30 RF: 0 metoprolol tartrate 25 mg Tablet 25 mg PO BID 30 Days Qty: 60 RF: 0 insulin aspart U-100 [Novolog U-100 Insulin aspart] 100 unit/mL solution 3 unit subcut DAILYBL 30 Days Qty: 0.9 RF: 0 aspirin [Aspirin Low Dose] 81 mg tablet,delayed release (DR/EC) 81 mg PO QAM 30 Days Qty: 30 RF: 0 pantoprazole 40 mg tablet,delayed release (DR/EC) 40 mg PO QAM 30 Days Qty: 30 RF: 0 insulin aspart U-100 [Novolog U-100 Insulin aspart] 100 unit/mL solution 5 unit subcut DAILYBB 30 Days Qty: 1.5 RF: 0 Changed sennosides [senna] 8.6 mg Tablet 8.6 mg PO QAM PRN (Reason: constipation) 10 Days Qty: 10 RF: 0 insulin aspart U-100 [Novolog U-100 Insulin aspart] 100 unit/mL solution 3 unit subcut DAILYBD 30 Days Qty: 0.9 RF: 0 Discontinued Lantus U-100 Insulin 100 unit/mL solution 12 unit subcut DAILY RF: 0 Lantus Solostar U-100 Insulin 100 unit/mL (3 mL) Insulin Pen 20 unit SUBCUT QPM RF: 0 Discharge Orders: Discharge Order (Routine); Ordered 04/27/20 Ordered By: Masoud Rodríguez/Other Patient Handouts: Understanding Type 1 Diabetes Admission Data Admit Date/Time: 04/21/20 14:56 Attending Provider: Masoud Cobb Admit Provider: Roland Boateng Primary Care Provider: PHUONG CONN Other Providers: Roland Boateng ; Marshall Major
[2020-04-28] MEDS ORDERED: INSULIN ASPART 100 UNITS/ML 3 ML PEN SC SCH ×2 (08:00→12:00)
== END 2020-04-27 13:18 | DRG 638 ==
LOC: ED 08:43 → 1E 14:39 → SUATTDRO 14:56 → 1E 14:56 → 2S 04-22 07:07 → 3N 04-24 11:46

== ENCOUNTER 2020-11-17 16:46 | Inpatient (IN) ==
[2020-11-17] MEDS ORDERED: NovoLIN-R INSULIN PER UNIT CHARGE IV STA ×2 (17:05→18:58)
[2020-11-17] MEDS ORDERED: SODIUM CHLORIDE 0.9% 1000ML 1,000 ML IV ONE ×2 (17:05→23:38)
--- NOTE | 2020-11-17 17:11 | Emergency Department Note ---
Impression & Plan Altered mental status, Acute hyperglycemia, Acute UTI, Acute dehydration ED Provider Note NAME: JB MELTON AGE: 69 SEX: M : 1950 ARRIVES VIA: Ambulance INFORMANT: [Patient][ems, nursing] ED PROVIDER(S): [Nabil Jhaveri MD] CHIEF COMPLAINT: Hyperglycemia HISTORY OF PRESENT ILLNESS: The patient is a 69-year-old male who presents to the ER by EMS for an altered mental state, some lethargy, some weakness and a high blood sugar. The blood sugar was recorded at 545 by EMS. The patient denies any pain. He has not had cough, cold or congestion. No vomiting or diarrhea, no urinary complaints. The patient is unhappy that he is here. He denies recent fever or chills. No known Covid exposures. REVIEW OF SYSTEMS: See HPI for pertinent positives and negatives. A total of ten systems were reviewed and were otherwise negative. PMHx/PSHx: See Below SOCIAL HISTORY: See Below. PHYSICAL EXAM: GENERAL: Patient is in no acute distress. HEENT: No acute trauma, normocephalic atraumatic, mucous membranes dry, no nasal congestion, no scleral icterus. NECK: No stridor, no adenopathy, no meningismus, trachea is midline. LUNGS: Clear to auscultation bilaterally, no wheeze, no rhonchi, breath sounds equal. HEART: Without murmurs gallops or rubs, regular rate and rhythm. ABDOMEN: Soft, nontender, bowel sounds positive, no hernias, no peritonitis. EXTREMITIES: No cyanosis or edema, there is a left below the knee amputation. He has lost the right toes. No signs for ulcer or infection to the lower extremities. NEUROLOGIC: Awake and alert, no acute motor or sensory deficits, no focal weakness. Answers simple questions. No speech slur. SKIN: No rash, no jaundice, no diaphoresis. DIFFERENTIAL DIAGNOSIS: Infection, dehydration, metabolic abnormality, intracranial bleeding, hypo/hyperglycemia, electrolyte disturbance, anemia, hypoxia, cardiac sources, intracerebral event, toxicologic issues, stroke, TIA, as well as other pathologies. EMERGENCY DEPARTMENT COURSE/PROCEDURES: ECG: Indication was weakness. The ECG shows a normal sinus rhythm with a rate of 65. There is no ST elevation, no PVCs. The QTc is 438. Continuous Cardiac Monitoring: An order was placed for continuous cardiac monitoring. The monitor shows a rate of 63 with normal sinus rhythm. Critical Care Note: I have personally spent 46 minutes of critical care time in the direct management of this patient. This includes bedside care, interpretation of diagnostic studies, and testing, discussion with consultants, patient, and family members, and other required patient management activities. This 46 minutes is in excess of all separately billable procedures. MEDICAL DECISION MAKING: There is no leukocytosis. The patient does have a mild anemia but this has been documented before. There is a normal platelet count. VBG does not show any acidosis or significant CO2 retention. Renal panel testing does show some acute kidney injury/dehydration. Blood sugar was quite high at over 500. Lactic acid level was not elevated making sepsis less likely. Alk phos slightly elevated, the remaining liver enzymes were unremarkable. The ammonia level was normal. The patient appeared to be in a euthyroid state. Urinalysis is consistent with infection. Covid and influenza testing were negative. Chest film did not show pneumonia or CHF. Brain CT showed no acute bleed or mass-effect. On exam, there was no evidence for cellulitis. The patient received IV saline. He received a total of 2 L of IV saline. He was given IV ceftriaxone as empiric antibiotic coverage. He received IV insulin, 2 doses of IV insulin were required. His sugar is now in the 100s. The patient presents with lethargy and a change in mental status. He was hyperglycemic, dehydrated and has a UTI. He requires a hospital stay. I did speak with the patient and case management. The on-call hospitalist was consulted. Past Med/Surg History Medical History Bipolar 1 disorder Cognitive disorder COVID-19 Depression Diabetes mellitus type 1 with complications HTN (hypertension) Paroxysmal A-fib Status post amputation of toe of left foot Vitamin D deficiency Surgical History Status post below-knee amputation of left lower extremity Family History Other Family history unobtainable due to patient's condition Social History Smoking Status: Never smoker Hx Alcohol Use: No (unknown) Preferred Language: [place] Islander Communication Ability: Impaired Neck Band Maker Required: No Beliefs That Will Affect Care: None marital status: Single Current Living Situation: [facility] Current Living Situation Comment: [facility] Feels Safe at Home: Yes Assistive Devices: Wheelchair Allergies Allergies Allergy/AdvReac Type Severity Reaction Status Date / Time No Known Allergies Allergy Verified 11/17/20 20:26 Home Meds Home Medications Medication Instructions Recorded Confirmed insulin glargine [Basaglar KwikPen 25 unit SUBCUT BID 11/17/20 11/17/20 U-100 Insulin] losartan 50 mg PO DAILY 11/17/20 11/17/20 Previous Rx's Medication Instructions Recorded Eliquis 5 mg PO BID 30 Days #60 tab 04/27/20 acetaminophen [Tylenol] 650 mg PO Q6H PRN 30 Days #14 tab 04/27/20 aspirin [Aspirin Low Dose] 81 mg PO QAM 30 Days #30 tab 04/27/20 atorvastatin 10 mg PO HS 30 Days #30 tab 04/27/20 calcium carbonate 500 mg PO QAM #7 tab 04/27/20 cholecalciferol (vitamin D3) 1,000 unit PO QAM 30 Days #30 cap 04/27/20 metoprolol tartrate 25 mg PO BID 30 Days #60 tab 04/27/20 pantoprazole 40 mg PO QAM 30 Days #30 tab 04/27/20 quetiapine 12.5 mg PO BID 30 Days #30 tab 04/27/20 quetiapine 25 mg PO HS 30 Days #30 tab 04/27/20 sennosides [senna] 8.6 mg PO QAM PRN 10 Days #10 tab 04/27/20 sertraline 50 mg PO HS 30 Days #30 tab 04/27/20 ondansetron 4 mg PO Q8H PRN #10 tab 07/28/20 Results & Data (ED) Vital Signs Vital Signs - 24 hr 11/17/20 17:01 11/17/20 17:05 11/17/20 17:06 Temperature 36.9 C Temperature Source Oral Pulse Rate 67 64 79 Pulse Rate from SpO2 Sensor 66 64 Respiratory Rate 24 18 18 Respiratory Effort / Characteristics Non-Labored Spontaneous Respiratory Depth Normal Respiratory Pattern Regular Blood Pressure 157/57 H 134/94 Blood Pressure Mean 90 107 Blood Pressure Position Lying Pulse Oximetry 99 100 99 Oxygen Delivery Method Room Air Room Air Room Air Sepsis Recent Fever Within 48 Hours No Sepsis New/Unexplained Change in Mental Status N/A Sepsis Action Taken by Nursing No Action Required 11/17/20 17:10 11/17/20 17:20 11/17/20 17:30 Temperature Temperature Source Pulse Rate 65 66 64 Pulse Rate from SpO2 Sensor 65 66 66 Respiratory Rate 15 17 21 Respiratory Effort / Characteristics Respiratory Depth Respiratory Pattern Blood Pressure 180/102 H Blood Pressure Mean 128 Blood Pressure Position Pulse Oximetry 100 100 98 Oxygen Delivery Method Room Air Room Air Room Air Sepsis Recent Fever Within 48 Hours Sepsis New/Unexplained Change in Mental Status Sepsis Action Taken by Nursing 11/17/20 17:31 11/17/20 17:40 11/17/20 17:50 Temperature Temperature Source Pulse Rate 64 69 65 Pulse Rate from SpO2 Sensor 64 Respiratory Rate 19 14 17 Respiratory Effort / Characteristics Respiratory Depth Respiratory Pattern Blood Pressure Blood Pressure Mean Blood Pressure Position Pulse Oximetry 100 Oxygen Delivery Method Room Air Room Air Room Air Sepsis Recent Fever Within 48 Hours Sepsis New/Unexplained Change in Mental Status Sepsis Action Taken by Nursing 11/17/20 18:00 11/17/20 18:01 11/17/20 18:10 Temperature Temperature Source Pulse Rate 65 67 63 Pulse Rate from SpO2 Sensor Respiratory Rate 13 16 16 Respiratory Effort / Characteristics Respiratory Depth Respiratory Pattern Blood Pressure 157/74 H Blood Pressure Mean 101 Blood Pressure Position Pulse Oximetry Oxygen Delivery Method Room Air Room Air Room Air Sepsis Recent Fever Within 48 Hours Sepsis New/Unexplained Change in Mental Status Sepsis Action Taken by Nursing 11/17/20 18:20 11/17/20 19:00 11/17/20 19:10 Temperature Temperature Source Pulse Rate 66 73 74 Pulse Rate from SpO2 Sensor Respiratory Rate 15 18 17 Respiratory Effort / Characteristics Respiratory Depth Respiratory Pattern Blood Pressure 134/75 Blood Pressure Mean 94 Blood Pressure Position Pulse Oximetry 100 100 Oxygen Delivery Method Room Air Room Air Room Air Sepsis Recent Fever Within 48 Hours Sepsis New/Unexplained Change in Mental Status Sepsis Action Taken by Nursing 11/17/20 20:00 11/17/20 20:30 11/17/20 21:00 Temperature Temperature Source Pulse Rate 76 68 72 Pulse Rate from SpO2 Sensor Respiratory Rate 18 12 14 Respiratory Effort / Characteristics Respiratory Depth Respiratory Pattern Blood Pressure 131/39 L 129/56 L Blood Pressure Mean 69 80 Blood Pressure Position Pulse Oximetry 100 96 98 Oxygen Delivery Method Room Air Room Air Room Air Sepsis Recent Fever Within 48 Hours Sepsis New/Unexplained Change in Mental Status Sepsis Action Taken by Nursing 11/17/20 21:30 11/17/20 21:50 11/17/20 22:00 Temperature Temperature Source Pulse Rate 68 67 66 Pulse Rate from SpO2 Sensor 67 66 Respiratory Rate 12 16 12 Respiratory Effort / Characteristics Respiratory Depth Respiratory Pattern Blood Pressure 141/59 H 144/65 H Blood Pressure Mean 86 91 Blood Pressure Position Pulse Oximetry 100 98 99 Oxygen Delivery Method Room Air Room Air Room Air Sepsis Recent Fever Within 48 Hours Sepsis New/Unexplained Change in Mental Status Sepsis Action Taken by Nursing 11/17/20 22:01 Temperature Temperature Source Pulse Rate 68 Pulse Rate from SpO2 Sensor 68 Respiratory Rate 16 Respiratory Effort / Characteristics Respiratory Depth Respiratory Pattern Blood Pressure Blood Pressure Mean Blood Pressure Position Pulse Oximetry 98 Oxygen Delivery Method Room Air Sepsis Recent Fever Within 48 Hours Sepsis New/Unexplained Change in Mental Status Sepsis Action Taken by [facility] Medications Current Medication List: was personally reviewed by me Laboratory Data Attestation: I reviewed the patient's lab results. Result diagrams: 11/17/20 17:00 11/17/20 17:00 Lab Results 11/17/20 11/17/20 11/17/20 Range/Units 16:54 17:00 17:00 WBC 5.92 (4.8-10.8) K/uL RBC 3.79 L (4.7-6.1) M/uL Hgb 10.8 L (14.0-18.0) g/dL Hct 33.4 L (42-52) % MCV 88.1 (80-100) fL MCH 28.5 (25-34) pg MCHC 32.3 (32-36) g/dL RDW Std Deviation 47.8 H (36.4-46.3) fL RDW Coeff of Jace 14.8 H (11.5-14.5) % Plt Count 303 (130-400) K/uL MPV 9.9 (7.4-10.4) fL Immature Gran % (Auto) 0.2 % Neut % (Auto) 57.6 % Lymph % (Auto) 31.9 % Levy % (Auto) 6.3 % Eos % (Auto) 3.2 % Baso % (Auto) 0.8 % Neut # (Auto) 3.41 (1.4-6.5) K/uL Lymph # (Auto) 1.89 (1.2-3.4) K/uL Levy # (Auto) 0.37 (0.11-0.59) K/uL Eos # (Auto) 0.19 (0-0.5) K/uL Baso # (Auto) 0.05 (0-0.2) K/uL Immature Gran # (Auto) 0.01 (0.00-0.02) K/uL VBG pH (7.36-7.41) VBG pCO2 (38-50) mmHg VBG pO2 mmHg VBG HCO3 mmol/L VBG O2 Saturation % VBG Base Excess mEq/L Barometric Pressure mm/Hg Sodium 136 (136-145) mmol/L Potassium 5.0 (3.5-5.1) mmol/L Chloride 105 (98-107) mmol/L Carbon Dioxide 29 (21-32) mmol/L Anion Gap 2.0 L (3-11) BUN 30 H (7-18) mg/dl Creatinine 1.49 H (0.6-1.4) mg/dl Est Cr Clr Drug Dosing Not Reportable Est GFR ( Amer) 55.1 Est GFR (Non-Af Amer) 47.5 BUN/Creatinine Ratio 20.0 (10-20) Glucose 540 H* (70-99) mg/dl POC Glucose 561 H* (70-99) mg/dl Lactate (0.4-2.0) mmol/L Calcium 8.7 (8.5-10.1) mg/dl Magnesium 2.5 H (1.8-2.4) mg/dl Total Bilirubin 0.3 (0.2-1) mg/dl AST 17 (15-37) U/L ALT 39 (12-78) U/L Alkaline Phosphatase 125 H (45-117) U/L Ammonia (11-32) umol/L Troponin I < 0.015 (0-0.045) ng/ml Total Protein 7.2 (6.4-8.2) gm/dl Albumin 3.3 L (3.4-5.0) gm/dl Globulin 3.9 (2.5-4.0) gm/dl Albumin/Globulin Ratio 0.8 L (0.9-2) Beta-Hydroxybutyric Acd 0.96 (0.2-2.81) mg/dl TSH 0.977 (0.300-4.500) uIu/ml Specimen Hemolysis Urine Color Urine Appearance (Clear) Urine pH (4.5-7.5) Ur Specific [place] (1.000-1.030) Urine Protein (Negative) Urine Glucose (UA) (Negative) Urine Ketones (Negative) Urine Blood (Negative) Urine Nitrite (Negative) Urine Bilirubin (Negative) Urine Urobilinogen (Negative) Ur Leukocyte Esterase (Negative) Urine WBC (Auto) (0-5) /hpf Urine RBC (Auto) (0-4) /hpf U Hyaline Cast (Auto) (0-5) /lpf U Epithel Cells (Auto) (0-5) /lpf Urine Bacteria (Auto) (Negative) Urine Yeast COVID-19 Eval Order SARS-CoV-2 (PCR) (Negative) Influenza Type A (PCR) (Neg) Influenza Type B (PCR) (Neg) RSV (RT-PCR) (Neg) 11/17/20 11/17/20 11/17/20 Range/Units 17:14 17:14 18:56 WBC (4.8-10.8) K/uL RBC (4.7-6.1) M/uL Hgb (14.0-18.0) g/dL Hct (42-52) % MCV (80-100) fL MCH (25-34) pg MCHC (32-36) g/dL RDW Std Deviation (36.4-46.3) fL RDW Coeff of Jace (11.5-14.5) % Plt Count (130-400) K/uL MPV (7.4-10.4) fL Immature Gran % (Auto) % Neut % (Auto) % Lymph % (Auto) % Levy % (Auto) % Eos % (Auto) % Baso % (Auto) % Neut # (Auto) (1.4-6.5) K/uL Lymph # (Auto) (1.2-3.4) K/uL Levy # (Auto) (0.11-0.59) K/uL Eos # (Auto) (0-0.5) K/uL Baso # (Auto) (0-0.2) K/uL Immature Gran # (Auto) (0.00-0.02) K/uL VBG pH 7.33 L (7.36-7.41) VBG pCO2 58 H (38-50) mmHg VBG pO2 19 mmHg VBG HCO3 30 mmol/L VBG O2 Saturation < 60.0 % VBG Base Excess 2.8 mEq/L Barometric Pressure 728.9 mm/Hg Sodium (136-145) mmol/L Potassium (3.5-5.1) mmol/L Chloride (98-107) mmol/L Carbon Dioxide (21-32) mmol/L Anion Gap (3-11) BUN (7-18) mg/dl Creatinine (0.6-1.4) mg/dl Est Cr Clr Drug Dosing Est GFR ( Amer) Est GFR (Non-Af Amer) BUN/Creatinine Ratio (10-20) Glucose (70-99) mg/dl POC Glucose 310 H* (70-99) mg/dl Lactate (0.4-2.0) mmol/L Calcium (8.5-10.1) mg/dl Magnesium (1.8-2.4) mg/dl Total Bilirubin (0.2-1) mg/dl AST (15-37) U/L ALT (12-78) U/L Alkaline Phosphatase (45-117) U/L Ammonia 13.1 (11-32) umol/L Troponin I (0-0.045) ng/ml Total Protein (6.4-8.2) gm/dl Albumin (3.4-5.0) gm/dl Globulin (2.5-4.0) gm/dl Albumin/Globulin Ratio (0.9-2) Beta-Hydroxybutyric Acd (0.2-2.81) mg/dl TSH (0.300-4.500) uIu/ml Specimen Hemolysis Urine Color Urine Appearance (Clear) Urine pH (4.5-7.5) Ur Specific [place] (1.000-1.030) Urine Protein (Negative) Urine Glucose (UA) (Negative) Urine Ketones (Negative) Urine Blood (Negative) Urine Nitrite (Negative) Urine Bilirubin (Negative) Urine Urobilinogen (Negative) Ur Leukocyte Esterase (Negative) Urine WBC (Auto) (0-5) /hpf Urine RBC (Auto) (0-4) /hpf U Hyaline Cast (Auto) (0-5) /lpf U Epithel Cells (Auto) (0-5) /lpf Urine Bacteria (Auto) (Negative) Urine Yeast COVID-19 Eval Order SARS-CoV-2 (PCR) (Negative) Influenza Type A (PCR) (Neg) Influenza Type B (PCR) (Neg) RSV (RT-PCR) (Neg) 11/17/20 11/17/20 11/17/20 Range/Units 19:10 19:10 20:05 WBC (4.8-10.8) K/uL RBC (4.7-6.1) M/uL Hgb (14.0-18.0) g/dL Hct (42-52) % MCV (80-100) fL MCH (25-34) pg MCHC (32-36) g/dL RDW Std Deviation (36.4-46.3) fL RDW Coeff of Jace (11.5-14.5) % Plt Count (130-400) K/uL MPV (7.4-10.4) fL Immature Gran % (Auto) % Neut % (Auto) % Lymph % (Auto) % Levy % (Auto) % Eos % (Auto) % Baso % (Auto) % Neut # (Auto) (1.4-6.5) K/uL Lymph # (Auto) (1.2-3.4) K/uL Levy # (Auto) (0.11-0.59) K/uL Eos # (Auto) (0-0.5) K/uL Baso # (Auto) (0-0.2) K/uL Immature Gran # (Auto) (0.00-0.02) K/uL VBG pH (7.36-7.41) VBG pCO2 (38-50) mmHg VBG pO2 mmHg VBG HCO3 mmol/L VBG O2 Saturation % VBG Base Excess mEq/L Barometric Pressure mm/Hg Sodium (136-145) mmol/L Potassium (3.5-5.1) mmol/L Chloride (98-107) mmol/L Carbon Dioxide (21-32) mmol/L Anion Gap (3-11) BUN (7-18) mg/dl Creatinine (0.6-1.4) mg/dl Est Cr Clr Drug Dosing Est GFR ( Amer) Est GFR (Non-Af Amer) BUN/Creatinine Ratio (10-20) Glucose (70-99) mg/dl POC Glucose 194 H (70-99) mg/dl Lactate (0.4-2.0) mmol/L Calcium (8.5-10.1) mg/dl Magnesium (1.8-2.4) mg/dl Total Bilirubin (0.2-1) mg/dl AST (15-37) U/L ALT (12-78) U/L Alkaline Phosphatase (45-117) U/L Ammonia (11-32) umol/L Troponin I (0-0.045) ng/ml Total Protein (6.4-8.2) gm/dl Albumin (3.4-5.0) gm/dl Globulin (2.5-4.0) gm/dl Albumin/Globulin Ratio (0.9-2) Beta-Hydroxybutyric Acd (0.2-2.81) mg/dl TSH (0.300-4.500) uIu/ml Specimen Hemolysis Urine Color Urine Appearance (Clear) Urine pH (4.5-7.5) Ur Specific [place] (1.000-1.030) Urine Protein (Negative) Urine Glucose (UA) (Negative) Urine Ketones (Negative) Urine Blood (Negative) Urine Nitrite (Negative) Urine Bilirubin (Negative) Urine Urobilinogen (Negative) Ur Leukocyte Esterase (Negative) Urine WBC (Auto) (0-5) /hpf Urine RBC (Auto) (0-4) /hpf U Hyaline Cast (Auto) (0-5) /lpf U Epithel Cells (Auto) (0-5) /lpf Urine Bacteria (Auto) (Negative) Urine Yeast COVID-19 Eval Order [facility]FluRsv at [facility] SARS-CoV-2 (PCR) NEGATIVE (Negative) Influenza Type A (PCR) Negative (Neg) Influenza Type B (PCR) Negative (Neg) RSV (RT-PCR) Negative (Neg) 11/17/20 11/17/20 11/17/20 Range/Units 20:08 20:28 21:40 WBC (4.8-10.8) K/uL RBC (4.7-6.1) M/uL Hgb (14.0-18.0) g/dL Hct (42-52) % MCV (80-100) fL MCH (25-34) pg MCHC (32-36) g/dL RDW Std Deviation (36.4-46.3) fL RDW Coeff of Jace (11.5-14.5) % Plt Count (130-400) K/uL MPV (7.4-10.4) fL Immature Gran % (Auto) % Neut % (Auto) % Lymph % (Auto) % Levy % (Auto) % Eos % (Auto) % Baso % (Auto) % Neut # (Auto) (1.4-6.5) K/uL Lymph # (Auto) (1.2-3.4) K/uL Levy # (Auto) (0.11-0.59) K/uL Eos # (Auto) (0-0.5) K/uL Baso # (Auto) (0-0.2) K/uL Immature Gran # (Auto) (0.00-0.02) K/uL VBG pH (7.36-7.41) VBG pCO2 (38-50) mmHg VBG pO2 mmHg VBG HCO3 mmol/L VBG O2 Saturation % VBG Base Excess mEq/L Barometric Pressure mm/Hg Sodium (136-145) mmol/L Potassium (3.5-5.1) mmol/L Chloride (98-107) mmol/L Carbon Dioxide (21-32) mmol/L Anion Gap (3-11) BUN (7-18) mg/dl Creatinine (0.6-1.4) mg/dl Est Cr Clr Drug Dosing Est GFR ( Amer) Est GFR (Non-Af Amer) BUN/Creatinine Ratio (10-20) Glucose (70-99) mg/dl POC Glucose 80 (70-99) mg/dl Lactate 2.0 (0.4-2.0) mmol/L Calcium (8.5-10.1) mg/dl Magnesium (1.8-2.4) mg/dl Total Bilirubin (0.2-1) mg/dl AST (15-37) U/L ALT (12-78) U/L Alkaline Phosphatase (45-117) U/L Ammonia (11-32) umol/L Troponin I (0-0.045) ng/ml Total Protein (6.4-8.2) gm/dl Albumin (3.4-5.0) gm/dl Globulin (2.5-4.0) gm/dl Albumin/Globulin Ratio (0.9-2) Beta-Hydroxybutyric Acd (0.2-2.81) mg/dl TSH (0.300-4.500) uIu/ml Specimen Hemolysis Urine Color Yellow Urine Appearance Turbid A (Clear) Urine pH 5.0 (4.5-7.5) Ur Specific [place] 1.022 (1.000-1.030) Urine Protein Trace H (Negative) Urine Glucose (UA) 3+ H (Negative) Urine Ketones Negative (Negative) Urine Blood 2+ H (Negative) Urine Nitrite Negative (Negative) Urine Bilirubin Negative (Negative) Urine Urobilinogen Negative (Negative) Ur Leukocyte Esterase 3+ H (Negative) Urine WBC (Auto) >30 H (0-5) /hpf Urine RBC (Auto) 10-30 H (0-4) /hpf U Hyaline Cast (Auto) 10-30 H (0-5) /lpf U Epithel Cells (Auto) >30 H (0-5) /lpf Urine Bacteria (Auto) 4+ H (Negative) Urine Yeast Not Reportable COVID-19 Eval Order SARS-CoV-2 (PCR) (Negative) Influenza Type A (PCR) (Neg) Influenza Type B (PCR) (Neg) RSV (RT-PCR) (Neg) Administered Medications Discontinued Medications Sodium Chloride (Nss 1000ml) 1,000 mls @ 999 mls/hr IV .Q1H1M ONE Stop: 11/17/20 18:05 Last Infusion: 11/17/20 18:18 Dose: 0 mls/hr Documented by: [id number] Admin: 11/17/20 17:10 Dose: 999 mls/hr Documented by: [id number] Sodium Chloride (Nss 1000ml) 500 mls @ 999 mls/hr IV .Q31M ONE Stop: 11/17/20 18:44 Last Infusion: 11/17/20 19:08 Dose: 0 mls/hr Documented by: [id number] Admin: 11/17/20 18:18 Dose: 999 mls/hr Documented by: [id number] Sodium Chloride (Nss 1000ml) 500 mls @ 999 mls/hr IV .Q31M ONE Stop: 11/17/20 19:28 Last Infusion: 11/17/20 20:05 Dose: 0 mls/hr Documented by: [id number] Admin: 11/17/20 19:17 Dose: 999 mls/hr Documented by: [id number] Ceftriaxone Sodium (Rocephin) 1,000 mg in 50 mls @ 100 mls/hr IV NOW STA Stop: 11/17/20 21:54 Last Infusion: 11/17/20 22:10 Dose: 0 mls/hr Documented by: [id number] Admin: 11/17/20 21:34 Dose: 100 mls/hr Documented by: [id number] Piperacillin Sod/Tazobactam Sod (Zosyn) 4.5 gm in 120 mls @ 240 mls/hr IV NOW STA Stop: 11/17/20 22:30 Last Admin: 11/17/20 22:23 Dose: 240 mls/hr Documented by: [id number] Insulin Human Regular (Novolin-R Insulin Per Unit Charge) 10 units IV NOW STA Stop: 11/17/20 17:06 Last Admin: 11/17/20 18:15 Dose: 10 units Documented by: [id number] Cosigned by: [id number] Insulin Human Regular (Novolin-R Insulin Per Unit Charge) 8 units IV NOW STA Stop: 11/17/20 18:59 Last Admin: 11/17/20 19:06 Dose: 8 units Documented by: [id number] Cosigned by: [id number] Imaging Data Radiologist's Impression: Head CT 11/17/20 17:05 CT head/brain wo con CLINICAL HISTORY: 69 years-old Male with eliquis, confusion. Acutely altered mental status with confusion TECHNIQUE: Multiple axial CT images of the head were obtained without contrast. A dose lowering technique was utilized adhering to the principles of ALARA. CT DOSE: 1277.12 mGycm COMPARISON: Head CT 07/28/2020 FINDINGS: Motion degraded exam. No acute intracranial hemorrhage, midline shift, intracran ial mass, hydrocephalus, territorial ischemia or abnormal extra-axial collection. Age-related involutional changes. White matter hypodensities suggest chronic microvascular ischemic disease. 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 Cerebral vascular and dural calcifications are present. Chronic lacunar infarct of the left thalamus. The calvarium is intact. Prior bilateral lens replacement. The paranasal sinuses, mastoid air cells, and middle ear cavities are clear. IMPRESSION: Motion degraded exam without acute intracranial abnormality identified. ACT 112: Negative or not required by law. The above report was generated using voice recognition software. It may contain grammatical, syntax or spelling errors. Electronically signed by: Esteban Romero M.D. 11/17/2020 7:47 PM Chest X-Ray 11/17/20 17:06 XR chest 1V portable HISTORY: 69 years-old Male weakness acute weakness COMPARISON: Chest radiograph 07/28/2020 TECHNIQUE: Portable AP view of the chest FINDINGS: Cardiomediastinal and hilar silhouettes are within normal limits. No pneumothorax, pleural effusion, airspace consolidation or overt pulmonary edema. Degenerative changes of the shoulders and spine. Healed chronic fractures of the posterolateral right fifth through seventh ribs. Chronic appearing ununited mid left clavicular fracture. IMPRESSION: No acute process. ACT 112: Negative or not required by law. The above report was generated using voice recognition software. It may contain grammatical, syntax or spelling errors. Electronically signed by: Esteban Romero M.D. 11/17/2020 5:24 PM Discharge Plan Visit Data Chief Complaint: Hyperglycemia Stated Complaint: HYPERGLYCEMIA. LETHARGIC, AMS ED Provider: Nabil Jhaveri Discharge Problem: Altered mental status, Acute hyperglycemia, Acute UTI, Acute dehydration Patient Disposition: Admitted As Inpatient Condition: Fair Forms Stand Alone Forms: Replaced By [facility] Prescriptions Prescriptions: No Action quetiapine 25 mg tablet 12.5 mg PO BID 30 Days Qty: 30 RF: 0 quetiapine 25 mg tablet 25 mg PO HS 30 Days Qty: 30 RF: 0 sennosides [senna] 8.6 mg Tablet 8.6 mg PO QAM PRN (Reason: constipation) 10 Days Qty: 10 RF: 0 acetaminophen [Tylenol] 325 mg Tablet 650 mg PO Q6H PRN (Reason: Pain and Fever) 30 Days Qty: 14 RF: 0 atorvastatin 10 mg tablet 10 mg PO HS 30 Days Qty: 30 RF: 0 aspirin [Aspirin Low Dose] 81 mg tablet,delayed release (DR/EC) 81 mg PO QAM 30 Days Qty: 30 RF: 0 calcium carbonate 500 mg calcium (1,250 mg) Tablet 500 mg PO QAM Qty: 7 RF: 0 pantoprazole 40 mg tablet,delayed release (DR/EC) 40 mg PO QAM 30 Days Qty: 30 RF: 0 sertraline 50 mg Tablet 50 mg PO HS 30 Days Qty: 30 RF: 0 cholecalciferol (vitamin D3) 25 mcg (1,000 unit) Capsule 1,000 unit PO QAM 30 Days Qty: 30 RF: 0 metoprolol tartrate 25 mg Tablet 25 mg PO BID 30 Days Qty: 60 RF: 0 Eliquis 5 mg Tablet 5 mg PO BID 30 Days Qty: 60 RF: 0 ondansetron 4 mg tablet,disintegrating 4 mg PO Q8H PRN (Reason: nausea and vomiting) Qty: 10 RF: 0 losartan 50 mg tablet 50 mg PO DAILY RF: 0 [place] KwikPen U-100 Insulin 100 unit/mL (3 mL) Insulin Pen 25 unit SUBCUT BID RF: 0 Referrals Referrals: PHUONG CONN [Primary Care Provider] - Discharge Problem: Altered mental status Qualifiers: Altered mental status type: somnolence Qualified Code(s): R40.0 - Somnolence
[2020-11-17 17:21] LABS: Basophils # (auto) 0.05 K/uL (0-0.2); Basophils % (auto) 0.8 %; Eosinophils # (auto) 0.19 K/uL (0-0.5); Eosinophils % (auto) 3.2 %; Hematocrit (blood only) 33.4 % (42-52); Hemoglobin 10.8 g/dL (14.0-18.0); Immature Granulocytes # (auto) 0.01 K/uL (0.00-0.02); Immature Granulocytes % (auto) 0.2 %; Lymphocytes # (auto) 1.89 K/uL (1.2-3.4); Lymphocytes % (auto) 31.9 %; Mean Corpuscular Hemoglobin 28.5 pg (25-34); Mean Corpuscular Hgb Conc 32.3 g/dL (32-36); Mean Corpuscular Volume 88.1 fL (80-100); Mean Platelet Volume 9.9 fL (7.4-10.4); Monocytes # (auto) 0.37 K/uL (0.11-0.59); Monocytes % (auto) 6.3 %; Neutrophils # (auto) 3.41 K/uL (1.4-6.5); Neutrophils % (auto) 57.6 %; Platelet Count 303 K/uL (130-400); RDW Coefficient of Variation 14.8 % (11.5-14.5); RDW Standard Deviation 47.8 fL (36.4-46.3); Red Blood Count 3.79 M/uL (4.7-6.1); White Blood Count 5.92 K/uL (4.8-10.8)
--- NOTE | 2020-11-17 17:26 | XRay Report ---
XR chest 1V portable HISTORY: 69 years-old Male weakness acute weakness COMPARISON: Chest radiograph 07/28/2020 TECHNIQUE: Portable AP view of the chest FINDINGS: Cardiomediastinal and hilar silhouettes are within normal limits. No pneumothorax, pleural effusion, airspace consolidation or overt pulmonary edema. Degenerative changes of the shoulders and spine. Hea led chronic fractures of the posterolateral right fifth through seventh ribs. Chronic appearing ununi myla mid left clavicular fracture. IMPRESSION: No acute process. ACT 112: Negative or not required by law. The above report was generated using voice recognition software. It may contain grammatical, syntax o r spelling errors. Electronically signed by: Esteban Romero M.D. 11/17/2020 5:24 PM
[2020-11-17 17:38] LABS: Alanine Aminotransferase 39 U/L (12-78); Albumin Level 3.3 gm/dl (3.4-5.0); Aspartate Aminotransferase 17 U/L (15-37); Blood Urea Nitrogen 30 mg/dl (7-18); Calcium 8.7 mg/dl (8.5-10.1); Carbon Dioxide 29 mmol/L (21-32); Chloride 105 mmol/L (98-107); Est GFR (African American) 55.1; Est GFR (Non-African American) 47.5; Glucose 540 mg/dl (70-99); Magnesium 2.5 mg/dl (1.8-2.4); Sodium 136 mmol/L (136-145)
[2020-11-17 17:49] LABS: Albumin Globulin Ratio 0.8 (0.9-2); Alkaline Phosphatase 125 U/L (45-117); Bilirubin,Total 0.3 mg/dl (0.2-1); Globulin 3.9 gm/dl (2.5-4.0); Thyroid Stimulating Hormone 0.977 uIu/ml (0.300-4.500); Total Protein 7.2 gm/dl (6.4-8.2); Troponin I < 0.015 ng/ml (0-0.045)
[2020-11-17 17:51] LABS: Base Excess VBG 2.8 mEq/L; HCO3 VBG 30 mmol/L; PCO2 VBG 58 mmHg (38-50); PO2 VBG 19 mmHg; pH VBG 7.33 (7.36-7.41)
[2020-11-17 17:55] LABS: Oxygen Saturation VBG < 60.0 %
[2020-11-17 18:12] LABS: Beta-Hydroxybutyrate 0.96 mg/dl (0.2-2.81)
[2020-11-17] MEDS ORDERED: SODIUM CHLORIDE 0.9% 1000ML 500 ML IV ONE ×2 (18:14→18:58)
--- NOTE | 2020-11-17 19:49 | CT Scan Report ---
CT head/brain wo con CLINICAL HISTORY: 69 years-old Male with eliquis, confusion. Acutely altered mental status with conf usion TECHNIQUE: Multiple axial CT images of the head were obtained without contrast. A dose lowering tech nique was utilized adhering to the principles of ALARA. CT DOSE: 1277.12 mGycm COMPARISON: Head CT 07/28/2020 FINDINGS: Motion degraded exam. No acute intracranial hemorrhage, midline shift, intracranial mass, hydrocephal us, territorial ischemia or abnormal extra-axial collection. Age-related involutional changes. White matter hypodensities suggest chronic microvascular ischemic disease. Chronic infarct of the left fron marilou lobe. Cerebral vascular and dural calcifications are present. Chronic lacunar infarct of the left thalamus. The calvarium is intact. Prior bilateral lens replacement. The paranasal sinuses, mastoid air cells, and middle ear cavities are clear. IMPRESSION: Motion degraded exam without acute intracranial abnormality identified. ACT 112: Negative or not required by law. The above report was generated using voice recognition software. It may contain grammatical, syntax o r spelling errors. Electronically signed by: Esteban Romero M.D. 11/17/2020 7:47 PM
[2020-11-17 20:00] LABS: Influenza A virus by PCR Negative (Neg); Influenza B virus by PCR Negative (Neg); RSV by PCR Negative (Neg); SARS CoV2 RNA(COVID-19) InHosp NEGATIVE (Negative)
[2020-11-17 20:41] LABS: Appearance Urine Turbid (Clear); Bacteria Urine Automated 4+ (Negative); Bilirubin Urine Negative (Negative); Blood Urine 2+ (Negative); Color Urine Yellow; Epithelial Cell Urine Auto >30 /lpf (0-5); Glucose Urine UA 3+ (Negative); Ketones Urine Negative (Negative); Leukocyte Esterase Urine 3+ (Negative); Nitrite Urine Negative (Negative); Protein Urine Trace (Negative); Specific Gravity Urine 1.022 (1.000-1.030); Urobilinogen Urine Negative (Negative); WBC Urine Automated >30 /hpf (0-5)
[2020-11-17] MEDS ORDERED: cefTRIAXone SODIUM 1,000 MG/50 ML BAG IV STA (21:25)
[2020-11-17] MEDS ORDERED: PIPERACILL/TAZOBAC CONSULT ACTIVE PRN (22:00)
[2020-11-17] MEDS ORDERED: PIPERACILLIN/TAZOBACTAM 4.5 GM/120 ML BAG IV STA (22:01)
--- NOTE | 2020-11-17 22:29 | History & Physical Report ---
Date of Service November 17, 2020 Assessment & Plan (1) Altered mental status: Encephalopathy Multifactorial : Hyperglycemia, history DM1, suboptimal control as of recent hemoglobin A1c of 10.16 March 2020 Complicated UTI, no sepsis ARF hypertension, slightly elevated PAF on Eliquis, patient NSR chronic anemia, hemoglobin at baseline Medical telemetry Basal insulin, ISS BG goal 1 10-1 40, carb count coverage, update hemoglobin A1c; may benefit from pharmacy glycemic control consultation Follow urine CS, Zosyn Monitor creatinine response to IVF, hold home ARB until creatinine back to baseline DVT prophylaxis. Eliquis Full code as per sister/POA, Ms. Keara Esposito. She requests updates from providers through [phone]. Attempted to contact [facility] ([phone] ) to inquire about patient recent blood sugar trends or any recent changes in insulin regimen. No answer. Will request AM provider to call facility in a.m. Text document was generated using [employer] 360 voice recognition software. It may contain grammatical or spelling errors. Kindly contact undersigned for clarification of any documentation item in question. History of Present Illness Chief Complaint: Left leg pain as per patient Altered mental status as per records Primary Care Provider: [facility] History obtained from patient, family, and records. Limited history from patient secondary to disorientation. Medical history significant for hypertension, PAF on Eliquis, DM 1, mood disorder, chronic anemia (baseline hemoglobin 10-11). Last confinement April 2020 for DKA. Today patient noted to have altered mental status at senior living. Noted to be lethargic and hyperglycemic. Patient denies chest pain, shortness of breath, cough, abdominal pain, diarrhea, dysuria. Complaining of left leg pain since this morning. At the ER, BSG noted to be 500s. IV insulin administered at the ER. Patient given Ceftriaxone for possible UTI. 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 Allergies Allergy/AdvReac Type Severity Reaction Status Date / Time No Known Allergies Allergy Verified 11/17/20 20:26 Home Medications Medication Instructions Recorded Confirmed Type Eliquis 5 mg PO BID 30 Days #60 tab 04/27/20 11/17/20 Rx acetaminophen [Tylenol] 650 mg PO Q6H PRN 30 Days #14 tab 04/27/20 11/17/20 Rx aspirin [Aspirin Low Dose] 81 mg PO QAM 30 Days #30 tab 04/27/20 11/17/20 Rx atorvastatin 10 mg PO HS 30 Days #30 tab 04/27/20 11/17/20 Rx calcium carbonate 500 mg PO QAM #7 tab 04/27/20 11/17/20 Rx cholecalciferol (vitamin D3) 1,000 unit PO QAM 30 Days #30 cap 04/27/20 11/17/20 Rx metoprolol tartrate 25 mg PO BID 30 Days #60 tab 04/27/20 11/17/20 Rx pantoprazole 40 mg PO QAM 30 Days #30 tab 04/27/20 11/17/20 Rx quetiapine 12.5 mg PO BID 30 Days #30 tab 04/27/20 11/17/20 Rx quetiapine 25 mg PO HS 30 Days #30 tab 04/27/20 11/17/20 Rx sennosides [senna] 8.6 mg PO QAM PRN 10 Days #10 tab 04/27/20 11/17/20 Rx sertraline 50 mg PO HS 30 Days #30 tab 04/27/20 11/17/20 Rx ondansetron 4 mg PO Q8H PRN #10 tab 07/28/20 11/17/20 Rx insulin glargine [Basaglar KwikPen 25 unit SUBCUT BID 11/17/20 11/17/20 History U-100 Insulin] losartan 50 mg PO DAILY 11/17/20 11/17/20 History Past Med/Surg History Medical History Bipolar 1 disorder Cognitive disorder COVID-19 Depression Diabetes mellitus type 1 with complications HTN (hypertension) Paroxysmal A-fib Status post amputation of toe of left foot Vitamin D deficiency Surgical History Status post below-knee amputation of left lower extremity Family History Other Family history unobtainable due to patient's condition Social History Smoking Status: Never smoker Hx Alcohol Use: No (unknown) Preferred Language: Sudanese Communication Ability: Impaired Operations [place] Required: No Beliefs That Will Affect Care: None marital status: Single Current Living Situation: Personal Care Facility Current Living Situation Comment: [facility] Feels Safe at Home: Yes Safety Concerns: Feels Safe At This Time Assistive Devices: Glasses Review of Systems Review of Systems: Could not be reliably obtained Physical Exam Physical Exam: GENERAL: Comfortable, disoriented, no respiratory distress SKIN: Pallor, warm HEENT: Bespectacled, pale palpebral conjunctivae, no ptosis, dry buccal mucosa NECK : Supple, no tenderness CHEST : CTA, no tenderness HEART : RRR, no obvious murmurs ABDOMEN: Some distention, nontender EXTREMITIES : No LE swelling/tenderness, LLE amputation stump, NEUROLOGIC : Disoriented, no facial asymmetry, no other gross focality Results & Data Results & Data ([facility]) Vital Signs (Past 12 Hours) Vital Signs Temp Pulse Resp BP Pulse Ox 11/17/20 22:01 68 16 98 11/17/20 22:00 66 12 144/65 H 99 11/17/20 21:50 67 16 98 11/17/20 21:30 68 12 141/59 H 100 11/17/20 21:00 72 14 129/56 L 98 11/17/20 20:30 68 12 131/39 L 96 11/17/20 20:00 76 18 100 11/17/20 19:10 74 17 100 11/17/20 19:00 73 18 134/75 100 11/17/20 18:20 66 15 11/17/20 18:10 63 16 11/17/20 18:01 67 16 11/17/20 18:00 65 13 157/74 H 11/17/20 17:50 65 17 11/17/20 17:40 69 14 11/17/20 17:31 64 19 100 11/17/20 17:30 64 21 180/102 H 98 11/17/20 17:20 66 17 100 11/17/20 17:10 65 15 100 11/17/20 17:06 36.9 C 79 18 134/94 99 11/17/20 17:05 64 18 100 11/17/20 17:01 67 24 157/57 H 99 Laboratory Results Laboratory Results WBC 5.92 K/uL (4.8-10.8) 05/05/21 17:00 RBC 3.79 M/uL (4.7-6.1) L 11/17/20 17:00 Hgb 10.8 g/dL (14.0-18.0) L 11/17/20 17:00 Hct 33.4 % (42-52) L 11/17/20 17:00 MCV 88.1 fL (80-100) 11/17/20 17:00 MCH 28.5 pg (25-34) 11/17/20 17:00 MCHC 32.3 g/dL (32-36) 11/17/20 17:00 RDW Std Deviation 47.8 fL (36.4-46.3) H 11/17/20 17:00 RDW Coeff of Jace 14.8 % (11.5-14.5) H 11/17/20 17:00 Plt Count 303 K/uL (130-400) 11/17/20 17:00 MPV 9.9 fL (7.4-10.4) 11/17/20 17:00 Immature Gran % (Auto) 0.2 % 11/17/20 17:00 Neut % (Auto) 57.6 % 11/17/20 17:00 Lymph % (Auto) 31.9 % 11/17/20 17:00 [place] % (Auto) 6.3 % 11/17/20 17:00 Eos % (Auto) 3.2 % 11/17/20 17:00 Baso % (Auto) 0.8 % 11/17/20 17:00 Neut # (Auto) 3.41 K/uL (1.4-6.5) 11/17/20 17:00 Lymph # (Auto) 1.89 K/uL (1.2-3.4) 11/17/20 17:00 [place] # (Auto) 0.37 K/uL (0.11-0.59) 11/17/20 17:00 Eos # (Auto) 0.19 K/uL (0-0.5) 11/17/20 17:00 Baso # (Auto) 0.05 K/uL (0-0.2) 11/17/20 17:00 Immature Gran # (Auto) 0.01 K/uL (0.00-0.02) 11/17/20 17:00 VBG pH 7.33 (7.36-7.41) L 11/17/20 17:14 VBG pCO2 58 mmHg (38-50) H 11/17/20 17:14 VBG pO2 19 mmHg 11/17/20 17:14 VBG HCO3 30 mmol/L 11/17/20 17:14 VBG O2 Saturation < 60.0 % 11/17/20 17:14 VBG Base Excess 2.8 mEq/L 11/17/20 17:14 Barometric Pressure 728.9 mm/Hg 11/17/20 17:14 Sodium 136 mmol/L (136-145) 11/17/20 17:00 Potassium 5.0 mmol/L (3.5-5.1) 11/17/20 17:00 Chloride 105 mmol/L (98-107) 11/17/20 17:00 Carbon Dioxide 29 mmol/L (21-32) 11/17/20 17:00 Anion Gap 2.0 (3-11) L 11/17/20 17:00 BUN 30 mg/dl (7-18) H 11/17/20 17:00 Creatinine 1.49 mg/dl (0.6-1.4) H 11/17/20 17:00 Est Cr Clr Drug Dosing Not Reportable 11/17/20 17:00 Est GFR ( Amer) 55.1 11/17/20 17:00 Est GFR (Non-Af Amer) 47.5 11/17/20 17:00 BUN/Creatinine Ratio 20.0 (10-20) 11/17/20 17:00 Glucose 540 mg/dl (70-99) H* 11/17/20 17:00 POC Glucose 80 mg/dl (70-99) 11/17/20 21:40 Lactate 2.0 mmol/L (0.4-2.0) 11/17/20 20:08 Calcium 8.7 mg/dl (8.5-10.1) 11/17/20 17:00 Magnesium 2.5 mg/dl (1.8-2.4) H 11/17/20 17:00 Total Bilirubin 0.3 mg/dl (0.2-1) 11/17/20 17:00 AST 17 U/L (15-37) 11/17/20 17:00 ALT 39 U/L (12-78) 11/17/20 17:00 Alkaline Phosphatase 125 U/L (45-117) H 11/17/20 17:00 Ammonia 13.1 umol/L (11-32) 11/17/20 17:14 Troponin I < 0.015 ng/ml (0-0.045) 11/17/20 17:00 Total Protein 7.2 gm/dl (6.4-8.2) 11/17/20 17:00 Albumin 3.3 gm/dl (3.4-5.0) L 11/17/20 17:00 Globulin 3.9 gm/dl (2.5-4.0) 11/17/20 17:00 Albumin/Globulin Ratio 0.8 (0.9-2) L 11/17/20 17:00 Beta-Hydroxybutyric Acd 0.96 mg/dl (0.2-2.81) 11/17/20 17:00 TSH 0.977 uIu/ml (0.300-4.500) 11/17/20 17:00 Specimen Hemolysis 11/17/20 17:00 Urine Color Yellow 11/17/20 20:28 Urine Appearance Turbid (Clear) A 11/17/20 20: Urine pH 5.0 (4.5-7.5) 11/17/20 20: Ur Specific [place] 1.022 (1.000-1.030) 11/17/20 20:28 Urine Protein Trace (Negative) H 11/17/20 20:28 Urine Glucose (UA) 3+ (Negative) H 11/17/20 20:28 Urine Ketones Negative (Negative) 11/17/20 20:28 Urine Blood 2+ (Negative) H 11/17/20 20:28 Urine Nitrite Negative (Negative) 11/17/20 20: Urine Bilirubin Negative (Negative) 11/17/20 20:28 Urine Urobilinogen Negative (Negative) 11/17/20 20:28 Ur Leukocyte Esterase 3+ (Negative) H 11/17/20 20:28 Urine WBC (Auto) >30 /hpf (0-5) H 11/17/20 20:28 Urine RBC (Auto) 10-30 /hpf (0-4) H 11/17/20 20:28 U Hyaline Cast (Auto) 10-30 /lpf (0-5) H 11/17/20 20:28 U Epithel Cells (Auto) >30 /lpf (0-5) H 11/17/20 20:28 Urine Bacteria (Auto) 4+ (Negative) H 11/17/20 20:28 Urine Yeast Not Reportable 11/17/20 20:28 COVID-19 Eval Order [facility] at [facility] 11/17/20 19:10 SARS-CoV-2 (PCR) NEGATIVE (Negative) 11/17/20 19:10 Influenza Type A (PCR) Negative (Neg) 11/17/20 19:10 Influenza Type B (PCR) Negative (Neg) 11/17/20 19:10 RSV (RT-PCR) Negative (Neg) 11/17/20 19:[address] 11/17/20 17:05 CT head/brain wo con CLINICAL HISTORY: 69 years-old Male with eliquis, confusion. Acutely altered mental status with confusion TECHNIQUE: Multiple axial CT images of the head were obtained without contrast. A dose lowering technique was utilized adhering to the principles of ALARA. CT DOSE: 1277.12 mGycm COMPARISON: Head CT 07/28/2020 FINDINGS: Motion degraded exam. No acute intracranial hemorrhage, midline shift, intracranial mass, hydrocephalus, territorial ischemia or abnormal extra-axial collection. Age-related involutional changes. White matter hypodensities suggest chronic microvascular ischemic disease. 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 Cerebral vascular and dural calcifications are present. Chronic lacunar infarct of the left thalamus. The calvarium is intact. Prior bilateral lens replacement. The paranasal sinuses, mastoid air cells, and middle ear cavities are clear. IMPRESSION: Motion degraded exam without acute intracranial abnormality identified. ACT 112: Negative or not required by law. The above report was generated using voice recognition software. It may contain grammatical, syntax or spelling errors. Electronically signed by: Esteban Romero M.D. 11/17/2020 7:47 PM Chest X-Ray 11/17/20 17:06 XR chest 1V portable HISTORY: 69 years-old Male weakness acute weakness COMPARISON: Chest radiograph 07/28/2020 TECHNIQUE: Portable AP view of the chest FINDINGS: Cardiomediastinal and hilar silhouettes are within normal limits. No pneumothorax, pleural effusion, airspace consolidation or overt pulmonary edema. Degenerative changes of the shoulders and spine. Healed chronic fractures of the posterolateral right fifth through seventh ribs. Chronic appearing ununited mid left clavicular fracture. IMPRESSION: No acute process. ACT 112: Negative or not required by law. The above report was generated using voice recognition software. It may contain grammatical, syntax or spelling errors. Electronically signed by: Esteban Romero M.D. 11/17/2020 5:24 PM Diagnostic Findings EKG as per my interpretation : Rate 65, NSR, normal axis, T wave inversion septal leads Code Status & VTE Plan VTE Prophylaxis Plan VTE Prophylaxis will be ordered: Yes (1) Altered mental status Altered mental status type: somnolence Qualified Code(s): R40.0 - Somnolence
[2020-11-17 23:04] LABS: Creatine Kinase 57 U/L (39-308)
[2020-11-17] MEDS ORDERED: GLUCOSE 10 TABS/TUBE PO PRN (23:38)
[2020-11-17] MEDS ORDERED: SENNA 8.6 MG TAB PO PRN (23:38)
[2020-11-17] MEDS ORDERED: traMADol HCL 50 MG TABLET PO PRN (23:38)
[2020-11-17] MEDS ORDERED: DEXTROSE 50% 50 ML SYRINGE IV PRN (23:38)
[2020-11-17] MEDS ORDERED: GLUCOSE 40% GEL 15 GM TUBE PO PRN (23:38)
[2020-11-17] MEDS ORDERED: GLUCAGON FOR INJ 1 MG VIAL SQ PRN (23:38)
[2020-11-17] MEDS ORDERED: OLANZapine 10 MG/2.1 ML SDV IM PRN (23:38)
[2020-11-17] MEDS ORDERED: PROMETHAZINE HCL 12.5 MG in SODIUM CHLORIDE 0.9% 50 ML IV PRN (23:38)
[2020-11-18] MEDS: INSULIN ASPART 100 UNITS/ML 3 ML PEN SC SCH ×5 (00:10→21:48)
[2020-11-18] MEDS: METOPROLOL TARTRATE 25 MG TAB PO SCH ×3 (00:14→20:53)
[2020-11-18] MEDS: QUEtiapine FUMARATE 25 MG TABLET PO SCH ×4 (00:15→20:53)
[2020-11-18] MEDS: PIPERACILLIN/TAZOBACTAM 3.375 GM in DEXTROSE 5% 100 ML IV SCH ×3 (04:08→20:52)
[2020-11-18] MEDS: ACETAMINOPHEN 325 MG TAB PO PRN (04:57)
[2020-11-18 05:39] LABS: Estimated Average Glucose 249 mg/dl; Hemoglobin A1C 10.3 % (4.5-5.6)
[2020-11-18 06:36] LABS: Basophils # (auto) 0.01 K/uL (0-0.2); Basophils % (auto) 0.1 %; Eosinophils # (auto) 0.13 K/uL (0-0.5); Eosinophils % (auto) 1.7 %; Hematocrit (blood only) 29.4 % (42-52); Hemoglobin 9.8 g/dL (14.0-18.0); Immature Granulocytes # (auto) 0.01 K/uL (0.00-0.02); Immature Granulocytes % (auto) 0.1 %; Lymphocytes # (auto) 0.58 K/uL (1.2-3.4); Lymphocytes % (auto) 7.6 %; Mean Corpuscular Hemoglobin 28.9 pg (25-34); Mean Corpuscular Hgb Conc 33.3 g/dL (32-36); Mean Corpuscular Volume 86.7 fL (80-100); Mean Platelet Volume 9.9 fL (7.4-10.4); Monocytes # (auto) 0.48 K/uL (0.11-0.59); Monocytes % (auto) 6.3 %; Neutrophils # (auto) 6.41 K/uL (1.4-6.5); Neutrophils % (auto) 84.2 %; Platelet Count 241 K/uL (130-400); RDW Coefficient of Variation 14.6 % (11.5-14.5); RDW Standard Deviation 45.9 fL (36.4-46.3); Red Blood Count 3.39 M/uL (4.7-6.1); White Blood Count 7.62 K/uL (4.8-10.8)
[2020-11-18 07:25] LABS: BUN Creatinine Ratio 22.1 (10-20); Calcium 8.2 mg/dl (8.5-10.1); Creatinine Clr Calc Pharmacy 63.2 ml/min; Est GFR (African American) 88.2; Est GFR (Non-African American) 76.1; Potassium 4.1 mmol/L (3.5-5.1)
--- NOTE | 2020-11-18 07:54 | Electrocardiogram Report ---
Test Reason : Blood Pressure : / mmHG Vent. Rate : 065 BPM Atrial Rate : 065 BPM P-R Int : 156 ms QRS Dur : 090 ms QT Int : 422 ms P-R-T Axes : 053 062 067 degrees QTc Int : 438 ms Normal sinus rhythm Normal ECG When compared with ECG of 28-JUL-2020 10:23, No significant change was found Confirmed by Josh Yousif ([id number]) on 11/18/2020 7:54:20 AM [facility] Confirmed By:Josh Yousif
[2020-11-18] MEDS: ASPIRIN 81 MG ECTAB PO SCH (08:05)
[2020-11-18] MEDS: APIXABAN 5 MG TABLET PO SCH ×2 (08:05→20:53)
[2020-11-18] MEDS: PANTOprazole 40 MG TAB PO SCH (08:05)
[2020-11-18] MEDS ORDERED: INSULIN GLARGINE SOLOSTAR 100 UNITS/ML 3 ML PEN SQ SCH (09:00)
[2020-11-18] MEDS ORDERED: PHARMACY GLYCEMIC MGMT CONSULT PRN (15:49)
--- NOTE | 2020-11-18 15:50 | Hospitalist Progress Note ---
Date of Service November 18, 2020 Assessment & Plan (1) Altered mental status: Acute Metabolic Encephalopathy Urinary Tract Infection CT head:Motion degraded exam without acute intracranial abnormality identified CXR:No acute process. Negative COVID Screen Blood Cx:pending Urine Cx:Pending Continue Zosyn for now Acute Kidney Injury Likely prerenal Cr:1.49>1.01 Received IV fluids Hold losartan for now Avoid nephrotoxic agents as able Monitor renal function Hyperglycemia H/O DM I HbA1C:10.3 Continue Insulin while hospitalized Monitor BGs Hypertension BP Variable Losartan held due to CHIVO Continue Metoprolol Paroxysmal atrial fibrillation Continue metoprolol On Eliquis for anticoagulation Monitor Chronic anemia Hb drop likely dilutional Monitor CBC DVT Px: Eliquis Code Status Full code Admission and Anticipated Discharge Date Admission Date: November 17, 2020 Subjective Patient is seen and examined at bedside Oriented to person only and this morning States feeling tired Denies any chest pain, dyspnea, dizziness, nausea, abdominal pain, dysuria, hematuria Offers no other complaints Review of Systems Review of Systems: All systems reviewed & are unremarkable except as noted in HPI & below Physical Exam Physical Exam: Physical Exam: Vitals signs as noted above General Appearance:Moderately built and nourished, no apparent distress Head: normocephalic, Atraumatic Eyes: normal inspection, EOMI Neck: supple, Trachea midline Respiratory/Chest: Normal breath sounds, CTA Cardiovascular: S1, S2, No murmur Abdomen/GI:Soft, Non tender, Bowel sounds present Extremities/Musculoskeletal:normal inspection, no edema, Left BKA, Right toes amputated Neurologic/Psych:Alert, awake, grossly no focal neurological deficits Skin: normal color, warm Results & Data Results & Data ([facility]) Vital Signs (Past 12 Hours) Vital Signs Temp Pulse Pulse Resp BP Pulse Ox 11/18/20 14:00 36.8 C 73 16 124/73 99 11/18/20 08:00 67 11/18/20 07:00 36.5 C 69 16 109/74 98 11/18/20 03:41 36.7 C 62 18 126/70 98 Laboratory Results Short CBC 11/17/20 11/18/20 Range/Units 17:00 06:05 WBC 5.92 7.62 (4.8-10.8) K/uL Hgb 10.8 L 9.8 L (14.0-18.0) g/dL Hct 33.4 L 29.4 L (42-52) % Plt Count 303 241 (130-400) K/uL BMP 11/17/20 11/18/20 17:00 06:05 Sodium 136 141 Potassium 5.0 4.1 D Chloride 105 110 H Carbon Dioxide 29 28 BUN 30 H 22 H Creatinine 1.49 H 1.01 Glucose 540 H* 99 Calcium 8.7 8.2 L Cardiac Enzymes 11/17/20 Range/Units 17:00 Total Creatine Kinase 57 (39-308) U/L Troponin I < 0.015 (0-0.045) ng/ml Liver Function 11/17/20 Range/Units 17:00 Total Bilirubin 0.3 (0.2-1) mg/dl AST 17 (15-37) U/L ALT 39 (12-78) U/L Alkaline Phosphatase 125 H (45-117) U/L Albumin 3.3 L (3.4-5.0) gm/dl Urine 11/17/20 Range/Units 20:28 Urine Color Yellow Urine Appearance Turbid A (Clear) Urine pH 5.0 (4.5-7.5) Ur Specific [place] 1.022 (1.000-1.030) Urine Protein Trace H (Negative) Urine Glucose (UA) 3+ H (Negative) (1) Altered mental status Altered mental status type: somnolence Qualified Code(s): R40.0 - Somnolence
[2020-11-18] MEDS: CARBOHYDRATES FOR HYPOGLYCEMIA PO PRN ×2 (16:45→17:02)
[2020-11-18] MEDS: ATORVASTATIN 10 MG TAB PO SCH (20:53)
[2020-11-18] MEDS: SERTRALINE HCL 50 MG TABLET PO SCH (20:53)
[2020-11-19] MEDS ORDERED: INSULIN ASPART 100 UNITS/ML 3 ML PEN SC SCH (02:00)
[2020-11-19] MEDS: PIPERACILLIN/TAZOBACTAM 3.375 GM in DEXTROSE 5% 100 ML IV SCH ×3 (05:16→19:51)
[2020-11-19 06:31] LABS: Hematocrit (blood only) 31.3 % (42-52); Hemoglobin 10.5 g/dL (14.0-18.0); Mean Corpuscular Hemoglobin 29.1 pg (25-34); Mean Corpuscular Hgb Conc 33.5 g/dL (32-36); Mean Corpuscular Volume 86.7 fL (80-100); Mean Platelet Volume 9.7 fL (7.4-10.4); Platelet Count 263 K/uL (130-400); RDW Coefficient of Variation 14.6 % (11.5-14.5); Red Blood Count 3.61 M/uL (4.7-6.1); White Blood Count 5.88 K/uL (4.8-10.8)
[2020-11-19 07:13] LABS: Calcium 9.3 mg/dl (8.5-10.1); Creatinine Clr Calc Pharmacy 54.1 ml/min; Est GFR (African American) 73.1; Potassium 3.9 mmol/L (3.5-5.1)
[2020-11-19] MEDS: ASPIRIN 81 MG ECTAB PO SCH (08:08)
[2020-11-19] MEDS: PANTOprazole 40 MG TAB PO SCH (08:08)
[2020-11-19] MEDS: APIXABAN 5 MG TABLET PO SCH ×2 (08:08→20:07)
[2020-11-19] MEDS: METOPROLOL TARTRATE 25 MG TAB PO SCH ×2 (08:08→20:07)
[2020-11-19] MEDS: QUEtiapine FUMARATE 25 MG TABLET PO SCH ×3 (08:08→20:06)
[2020-11-19] MEDS: INSULIN ASPART 100 UNITS/ML 3 ML PEN SC SCH ×4 (08:09→21:08)
[2020-11-19] MEDS: INSULIN GLARGINE SOLOSTAR 100 UNITS/ML 3 ML PEN SQ SCH (09:35)
--- NOTE | 2020-11-19 09:56 | Pharmacy Report ---
Pharmacy Glycemic Short Note 2 - Date of Service November 19, 2020 - Glycemic Short BSG Results (Last 24 hours): 11/18/20 11/18/20 11/18/20 11:53 16:46 16:46 Glucose POC Glucose 142 H 62 L* 63 L* 11/18/20 11/18/20 11/18/20 17:00 17:19 20:08 Glucose POC Glucose 58 L* 94 85 11/19/20 11/19/20 11/19/20 02:02 06:19 07:44 Glucose 162 H POC Glucose 90 218 H OUTPATIENT ANTIDIABETIC REGIMEN: * Lantus 25 units SQ BID * HbA1c: 10.3% (11/17/20) ASSESSMENT: * Mr Jaffe is a 69yo diabetic male, admitted with UTI/ARF/encephalopathy. * Pt was hyperglycemic on admission 11/17, but has since had some hypoglycemic episodes. Pharmacy glycemic consult received last evening. * Pt's home regimen is completely basal insulin, so it should be re-distributed to a more 50/50 basal/bolus structure for admission. Pt has been followed by pharmacy glycemic service in the past. * Lantus reduced today, to reflect patient's needs during past admission(s). Novolog parameters also adjusted. * Pharmacy will continue to follow and adjust regimen as necessary. PLAN FOR INPATIENT GLYCEMIC CONTROL: * Basal insulin * Lantus 15 units SQ daily * Bolus insulin * NovoLog per scale ACHS or Q6hrs while NPO * Goal Range: Low 120 mg/dL - High 160 mg/dL * Correction Factor: 30 mg/dL/unit * Nutritional / Prandial insulin per carb ratio of 1 unit per 15 grams CHO consumed PLAN FOR DISCHARGE: * A1c: 10.3% * This indicates sub-optimal glycemic control. Target goal for this patient is <7%. * Patient likely requires adjustment to his regimen on discharge. More to follow as admission progresses.
[2020-11-19] MEDS: ACETAMINOPHEN 325 MG TAB PO PRN (13:08)
[2020-11-19] MEDS ORDERED: INSULIN HUMAN REGULAR PER UNIT 7 UNITS in SYRINGE 6.93 ML IV ONE (17:00)
[2020-11-19] MEDS ORDERED: POTASSIUM CHLORIDE CRTAB 20 MEQ TABCR PO ONE (17:00)
--- NOTE | 2020-11-19 17:17 | Hospitalist Progress Note ---
Date of Service November 19, 2020 Assessment & Plan (1) Altered mental status: Acute Metabolic Encephalopathy Urinary Tract Infection--Ruled out Unclear Etiology CT head:Motion degraded exam without acute intracranial abnormality identified CXR:No acute process. Negative COVID Screen Blood Cx: No growth to date Urine Cx:Gamma Strep not Enterococcus Continue Zosyn for now Acute Kidney Injury Likely prerenal Cr:1.49>1.01 Received IV fluids Hold losartan for now Avoid nephrotoxic agents as able Monitor renal function Hyperglycemia H/O DM I HbA1C:10.3 Continue Insulin while hospitalized Monitor BGs Hypertension BP stable Continue Metoprolol Resume losartan tomorrow Paroxysmal atrial fibrillation Continue metoprolol On Eliquis for anticoagulation Monitor Chronic anemia Hb drop likely dilutional Monitor CBC DVT Px: Eliquis Code Status Full code Admission and Anticipated Discharge Date Admission Date: November 17, 2020 Subjective Patient is seen and examined at bedside Patient lethargic today Does not provide much history Hyperglycemic today Denies any chest pain, dyspnea Urine culture growing, strep not Enterococcus. Low-grade fever this morning Review of Systems Review of Systems: All systems reviewed & are unremarkable except as noted in HPI & below Physical Exam Physical Exam: Physical Exam: Vitals signs as noted above General Appearance:Moderately built and nourished, no apparent distress Head: normocephalic, Atraumatic Eyes: normal inspection, EOMI Neck: supple, Trachea midline Respiratory/Chest: Normal breath sounds, CTA Cardiovascular: S1, S2, No murmur Abdomen/GI:Soft, Non tender, Bowel sounds present Extremities/Musculoskeletal:normal inspection, no edema, Left BKA, Right toes amputated Neurologic/Psych:Alert, awake, grossly no focal neurological deficits Skin: normal color, warm Results & Data Results & Data ([facility]) Vital Signs (Past 12 Hours) Vital Signs Temp Pulse Pulse Resp BP Pulse Ox 11/19/20 15:41 73 11/19/20 15:33 36.8 C 80 16 148/50 H 98 11/19/20 11:29 36.8 C 78 16 136/78 95 11/19/20 08:07 86 137/58 L 11/19/20 07:27 37.3 C 73 16 161/78 H 96 11/19/20 07:00 78 Laboratory Results Short CBC 11/19/20 Range/Units 06:19 WBC 5.88 (4.8-10.8) K/uL Hgb 10.5 L (14.0-18.0) g/dL Hct 31.3 L (42-52) % Plt Count 263 (130-400) K/uL [facility] 11/19/20 06:19 Sodium 139 Potassium 3.9 Chloride 106 Carbon Dioxide 28 BUN 14 Creatinine 1.18 Glucose 162 H Calcium 9.3 (1) Altered mental status Altered mental status type: somnolence Qualified Code(s): R40.0 - Somnolence
[2020-11-19] MEDS: POTASSIUM CHLORIDE / WTR 10 MEQ/100 ML PLCT IV SCH ×2 (17:27→18:29)
[2020-11-19] MEDS: SERTRALINE HCL 50 MG TABLET PO SCH (20:05)
[2020-11-19] MEDS: ATORVASTATIN 10 MG TAB PO SCH (20:07)
[2020-11-20] MEDS: PIPERACILLIN/TAZOBACTAM 3.375 GM in DEXTROSE 5% 100 ML IV SCH ×3 (03:32→19:23)
[2020-11-20 08:18] LABS: BUN Creatinine Ratio 16.2 (10-20); Calcium 9.1 mg/dl (8.5-10.1); Est GFR (African American) 68.1; Est GFR (Non-African American) 58.8; Potassium 4.7 mmol/L (3.5-5.1)
[2020-11-20] MEDS: INSULIN GLARGINE SOLOSTAR 100 UNITS/ML 3 ML PEN SQ SCH ×2 (08:45→20:23)
[2020-11-20] MEDS: INSULIN ASPART 100 UNITS/ML 3 ML PEN SC SCH ×5 (08:45→20:22)
[2020-11-20] MEDS: QUEtiapine FUMARATE 25 MG TABLET PO SCH ×3 (08:49→20:24)
[2020-11-20] MEDS: METOPROLOL TARTRATE 25 MG TAB PO SCH ×3 (08:49→21:38)
[2020-11-20] MEDS: LOSARTAN POTASSIUM 50 MG TAB PO SCH (08:49)
[2020-11-20] MEDS: APIXABAN 5 MG TABLET PO SCH ×2 (08:49→20:25)
[2020-11-20] MEDS: ASPIRIN 81 MG ECTAB PO SCH (08:49)
[2020-11-20] MEDS: PANTOprazole 40 MG TAB PO SCH (08:49)
[2020-11-20] MEDS ORDERED: INSULIN GLARGINE SOLOSTAR 100 UNITS/ML 3 ML PEN SQ SCH (09:00)
--- NOTE | 2020-11-20 12:28 | Pharmacy Report ---
Pharmacy Glycemic Short Note 2 - Date of Service November 20, 2020 - Glycemic Short BSG Results (Last 24 hours): 11/19/20 11/19/20 11/20/20 16:40 20:20 07:21 Glucose 253 H POC Glucose 316 H* 174 H 11/20/20 11/20/20 11/20/20 08:42 11:44 11:46 Glucose POC Glucose 278 H 370 H* 317 H* OUTPATIENT ANTIDIABETIC REGIMEN: * Lantus 25 units SQ BID * HbA1c: 10.3% (11/17/20) ASSESSMENT: 11/20: * Patient was persistently hyperglycemic yesterday * BSGs: [phone] mg/dL * Trend continues today with fasting BSG of 278 mg/dL and lunch BSG of 370 mg/dL (recheck 317 mg/dL) * Patient is ordered a diet but is not eating anything which makes it difficult to change insulin too much * Increased Lantus to 20 units this morning. Will add a scale for this evening. * Tightened CF/CR * Will have second shift pharmacist follow patient this evening to adjust HS Lantus scale if needed 11/19: * Mr Jaffe is a 69yo diabetic male, admitted with UTI/ARF/encephalopathy. * Pt was hyperglycemic on admission 11/17, but has since had some hypoglycemic episodes. Pharmacy glycemic consult received last evening. * Pt's home regimen is completely basal insulin, so it should be re-distributed to a more 50/50 basal/bolus structure for admission. Pt has been followed by pharmacy glycemic service in the past. * Lantus reduced today, to reflect patient's needs during past admission(s). Novolog parameters also adjusted. * Pharmacy will continue to follow and adjust regimen as necessary. PLAN FOR INPATIENT GLYCEMIC CONTROL: * Basal insulin - increased * Lantus 20 units SC x 1 AM * Lantus 15-25 units SC BID (per BSG, see eMAR for more details) * Bolus insulin - tightened CF/CR * NovoLog per scale ACHS or Q6hrs while NPO * Goal Range: Low 120 mg/dL - High 160 mg/dL * Correction Factor: 20 mg/dL/unit * Nutritional / Prandial insulin per carb ratio of 1 unit per 7 grams CHO consumed PLAN FOR DISCHARGE: * A1c: 10.3% * This indicates sub-optimal glycemic control. Target goal for this patient is <7%. * Patient likely requires adjustment to his regimen on discharge. More to follow as admission progresses.
--- NOTE | 2020-11-20 17:30 | Hospitalist Progress Note ---
Date of Service November 20, 2020 Assessment & Plan (1) Altered mental status: Acute Metabolic Encephalopathy Urinary Tract Infection--Ruled out Unclear Etiology CT head:Motion degraded exam without acute intracranial abnormality identified CXR:No acute process. Negative COVID Screen Blood Cx: No growth to date Urine Cx:Gamma Strep not Enterococcus Empirically on Zosyn Afebrile today Acute Kidney Injury Likely prerenal Cr:1.49>1.2 Received IV fluids Avoid nephrotoxic agents as able Monitor renal function Hyperglycemia H/O DM I HbA1C:10.3 Continue Insulin while hospitalized Monitor BGs Appreciate glycemic pharmacy help Hypertension BP stable Continue Metoprolol, losartan Paroxysmal atrial fibrillation Continue metoprolol On Eliquis for anticoagulation Monitor Chronic anemia Hb drop likely dilutional Monitor CBC DVT Px: Eliquis Code Status Full code Admission and Anticipated Discharge Date Admission Date: November 17, 2020 Subjective Patient is seen and examined at bedside Poor appetite Minimal history No distress on exam Hyperglycemic today Denies any chest pain, dyspnea Afebrile today Review of Systems Review of Systems: All systems reviewed & are unremarkable except as noted in HPI & below Physical Exam Physical Exam: Physical Exam: Vitals signs as noted above General Appearance:Moderately built and nourished, no apparent distress Head: normocephalic, Atraumatic Eyes: normal inspection, EOMI Neck: supple, Trachea midline Respiratory/Chest: Normal breath sounds, CTA Cardiovascular: S1, S2, No murmur Abdomen/GI:Soft, Non tender, Bowel sounds present Extremities/Musculoskeletal:normal inspection, no edema, Left BKA, Right toes amputated Neurologic/Psych:Alert, awake, grossly no focal neurological deficits Skin: normal color, warm Results & Data Results & Data ([facility]) Vital Signs (Past 12 Hours) Vital Signs Temp Pulse Pulse Resp BP Pulse Ox 11/20/20 15:00 36.7 C 62 64 16 128/72 97 11/20/20 08:48 68 152/80 H 11/20/20 07:15 37 C 68 16 136/68 96 11/20/20 07:00 65 Laboratory Results BMP 11/20/20 07:21 Sodium 138 Potassium 4.7 D Chloride 106 Carbon Dioxide 27 BUN 20 H Creatinine 1.25 Glucose 253 H Calcium 9.1 (1) Altered mental status Altered mental status type: somnolence Qualified Code(s): R40.0 - Somnolence
[2020-11-20] MEDS ORDERED: INSULIN HUMAN REGULAR PER UNIT 7 UNITS in SYRINGE 0 ML IV ONE (18:05)
[2020-11-20] MEDS: ATORVASTATIN 10 MG TAB PO SCH (20:25)
[2020-11-20] MEDS: SERTRALINE HCL 50 MG TABLET PO SCH (20:25)
[2020-11-21] MEDS: PIPERACILLIN/TAZOBACTAM 3.375 GM in DEXTROSE 5% 100 ML IV SCH ×3 (04:56→19:50)
[2020-11-21] MEDS: INSULIN ASPART 100 UNITS/ML 3 ML PEN SC SCH ×4 (08:21→21:08)
[2020-11-21] MEDS: QUEtiapine FUMARATE 25 MG TABLET PO SCH ×3 (08:23→21:12)
[2020-11-21] MEDS: APIXABAN 5 MG TABLET PO SCH ×2 (08:23→21:13)
[2020-11-21] MEDS: METOPROLOL TARTRATE 25 MG TAB PO SCH ×2 (08:23→21:13)
[2020-11-21] MEDS: ASPIRIN 81 MG ECTAB PO SCH (08:24)
[2020-11-21] MEDS: LOSARTAN POTASSIUM 50 MG TAB PO SCH (08:24)
[2020-11-21] MEDS: PANTOprazole 40 MG TAB PO SCH (08:24)
[2020-11-21] MEDS: INSULIN GLARGINE SOLOSTAR 100 UNITS/ML 3 ML PEN SQ SCH ×2 (08:25→21:14)
--- NOTE | 2020-11-21 12:05 | Pharmacy Report ---
Pharmacy Glycemic Short Note 2 - Date of Service November 21, 2020 - Glycemic Short BSG Results (Last 24 hours): 11/20/20 11/20/20 11/21/20 16:51 20:09 07:38 POC Glucose 300 H 279 H 154 H 11/21/20 11:49 POC Glucose 127 H OUTPATIENT ANTIDIABETIC REGIMEN: * Lantus 25 units SQ BID * HbA1c: 10.3% (11/17/20) ASSESSMENT: 11/21: * BSGs were uncontrolled again yesterday: [phone] mg/dL * Received 45 units basal + 28 units bolus (73 units total) * Fasting BSG was much improved at 154 mg/dL this AM. Lunch BSG continues to trend downwards to 127 mg/dL * Likely due to too much basal insulin * Will reduce basal scale for this evening * Loosened Novolog with lunch to prevent hypoglycemia this evening 11/20: * Patient was persistently hyperglycemic yesterday * BSGs: [phone] mg/dL * Trend continues today with fasting BSG of 278 mg/dL and lunch BSG of 370 mg/dL (recheck 317 mg/dL) * Patient is ordered a diet but is not eating anything which makes it difficult to change insulin too much * Increased Lantus to 20 units this morning. Will add a scale for this evening. * Tightened CF/CR * Will have second shift pharmacist follow patient this evening to adjust HS Lantus scale if needed PLAN FOR INPATIENT GLYCEMIC CONTROL: * Basal insulin - decreased * Lantus 20 units SC x 1 AM * Lantus 10-20 units SC BID (per BSG, see eMAR for more details) * Bolus insulin - loosened CF/CR * NovoLog per scale ACHS or Q6hrs while NPO * Goal Range: Low 120 mg/dL - High 160 mg/dL * Correction Factor: 25 mg/dL/unit * Nutritional / Prandial insulin per carb ratio of 1 unit per 10 grams CHO consumed PLAN FOR DISCHARGE: * A1c: 10.3% * This indicates sub-optimal glycemic control. Target goal for this patient is <7%. * Patient likely requires adjustment to his regimen on discharge. More to follow as admission progresses.
--- NOTE | 2020-11-21 16:44 | Hospitalist Progress Note ---
Date of Service November 21, 2020 Assessment & Plan (1) Altered mental status: Acute Metabolic Encephalopathy Urinary Tract Infection--Ruled out Unclear Etiology CT head:Motion degraded exam without acute intracranial abnormality identified CXR:No acute process. Negative COVID Screen Blood Cx: No growth to date Urine Cx:Gamma Strep not Enterococcus Empirically on Zosyn Mental status seem to be back to baseline Acute Kidney Injury Likely prerenal Cr:1.49>1.2 Received IV fluids Avoid nephrotoxic agents as able Monitor renal function Renal function stable Hyperglycemia H/O DM I HbA1C:10.3 Continue Insulin while hospitalized Monitor BGs Appreciate glycemic pharmacy help Will need adjustment of insulin dose upon discharge Hypertension BP stable Continue Metoprolol, losartan Paroxysmal atrial fibrillation Continue metoprolol On Eliquis for anticoagulation Monitor Chronic anemia Hb drop likely dilutional Monitor CBC DVT Px: Eliquis Code Status Full code Admission and Anticipated Discharge Date Admission Date: November 17, 2020 Subjective Patient is seen and examined at bedside More alert awake today States having chronic stump pain Denies chest pain, dyspnea, dizziness nausea abdominal pain Review of Systems Review of Systems: All systems reviewed & are unremarkable except as noted in HPI & below Physical Exam Physical Exam: Physical Exam: Vitals signs as noted above General Appearance:Moderately built and nourished, no apparent distress Head: normocephalic, Atraumatic Eyes: normal inspection, EOMI Neck: supple, Trachea midline Respiratory/Chest: Normal breath sounds, CTA Cardiovascular: S1, S2, No murmur Abdomen/GI:Soft, Non tender, Bowel sounds present Extremities/Musculoskeletal:normal inspection, no edema, Left BKA, Right toes amputated Neurologic/Psych:Alert, awake, grossly no focal neurological deficits Skin: normal color, warm Results & Data Results & Data ([facility]) Vital Signs (Past 12 Hours) Vital Signs Temp Pulse Pulse Resp BP Pulse Ox 11/21/20 15:00 37.4 C 71 18 138/72 98 11/21/20 14:47 71 11/21/20 11:00 37.1 C 78 18 109/45 L 96 11/21/20 07:08 67 11/21/20 07:00 37.0 C 69 18 133/80 96 (1) Altered mental status Altered mental status type: somnolence Qualified Code(s): R40.0 - Somnolence
[2020-11-21] MEDS: SERTRALINE HCL 50 MG TABLET PO SCH (21:13)
[2020-11-21] MEDS: ATORVASTATIN 10 MG TAB PO SCH (21:13)
[2020-11-22] MEDS: PIPERACILLIN/TAZOBACTAM 3.375 GM in DEXTROSE 5% 100 ML IV SCH ×3 (03:24→20:01)
[2020-11-22 07:04] LABS: Hematocrit (blood only) 31.6 % (42-52); Hemoglobin 10.4 g/dL (14.0-18.0); Mean Corpuscular Hemoglobin 29.1 pg (25-34); Mean Corpuscular Hgb Conc 32.9 g/dL (32-36); Mean Corpuscular Volume 88.5 fL (80-100); Mean Platelet Volume 9.3 fL (7.4-10.4); Platelet Count 241 K/uL (130-400); RDW Coefficient of Variation 14.8 % (11.5-14.5); RDW Standard Deviation 48.6 fL (36.4-46.3); Red Blood Count 3.57 M/uL (4.7-6.1); White Blood Count 4.29 K/uL (4.8-10.8)
[2020-11-22 07:43] LABS: BUN Creatinine Ratio 13.3 (10-20); Calcium 8.5 mg/dl (8.5-10.1); Est GFR (African American) 76.2; Est GFR (Non-African American) 65.7; Potassium 3.9 mmol/L (3.5-5.1)
[2020-11-22] MEDS: APIXABAN 5 MG TABLET PO SCH ×2 (08:32→20:05)
[2020-11-22] MEDS: PANTOprazole 40 MG TAB PO SCH (08:32)
[2020-11-22] MEDS: ASPIRIN 81 MG ECTAB PO SCH (08:32)
[2020-11-22] MEDS: METOPROLOL TARTRATE 25 MG TAB PO SCH ×2 (08:33→20:07)
[2020-11-22] MEDS: QUEtiapine FUMARATE 25 MG TABLET PO SCH ×3 (08:33→20:06)
[2020-11-22] MEDS: LOSARTAN POTASSIUM 50 MG TAB PO SCH (08:33)
[2020-11-22] MEDS: INSULIN GLARGINE SOLOSTAR 100 UNITS/ML 3 ML PEN SQ SCH (08:34)
[2020-11-22] MEDS: INSULIN ASPART 100 UNITS/ML 3 ML PEN SC SCH ×4 (08:35→20:35)
--- NOTE | 2020-11-22 10:47 | Pharmacy Report ---
Pharmacy Glycemic Short Note 2 - Date of Service November 22, 2020 - Glycemic Short BSG Results (Last 24 hours): 11/21/20 11/21/20 11/22/20 11:49 16:50 06:50 Glucose 145 H POC Glucose 127 H 158 H 11/22/20 07:22 Glucose POC Glucose 150 H OUTPATIENT ANTIDIABETIC REGIMEN: * Lantus 25 untis Qam, Novolog 5-7-5 units TIDM * HbA1c: 10.3% (11/17/20) ASSESSMENT: 11/22: * Patient received 43 units of insulin yesterday, 30 units were basal insulin * Fasting BSG 150 mg/dL - plan to continue 25-30 units of basal insulin per day * Continue same CF/CR for now 11/21: * BSGs were uncontrolled again yesterday: [phone] mg/dL * Received 45 units basal + 28 units bolus (73 units total) * Fasting BSG was much improved at 154 mg/dL this AM. Lunch BSG continues to trend downwards to 127 mg/dL * Likely due to too much basal insulin * Will reduce basal scale for this evening * Loosened Novolog with lunch to prevent hypoglycemia this evening 11/20: * Patient was persistently hyperglycemic yesterday * BSGs: [phone] mg/dL * Trend continues today with fasting BSG of 278 mg/dL and lunch BSG of 370 mg/dL (recheck 317 mg/dL) * Patient is ordered a diet but is not eating anything which makes it difficult to change insulin too much * Increased Lantus to 20 units this morning. Will add a scale for this evening. * Tightened CF/CR * Will have second shift pharmacist follow patient this evening to adjust HS Lantus scale if needed PLAN FOR INPATIENT GLYCEMIC CONTROL: * Basal insulin * Lantus 15 units this AM, plan to give 10 units around dinner time * Goal to transition to 25 units daily starting tomorrow 11/23 (similar to outpatient regimen) * Bolus insulin * NovoLog per scale ACHS or Q6hrs while NPO * Goal Range: Low 120 mg/dL - High 160 mg/dL * Correction Factor: 25 mg/dL/unit * Nutritional / Prandial insulin per carb ratio of 1 unit per 10 grams CHO consumed PLAN FOR DISCHARGE: * A1c: 10.3% * DM educator met with patient and patient reports a lot of hyperglycemia may be related to patient's diet. Reports regularly consuming ice cream and cookies. Patient has hx also of refusing insulin, but has been doing better since dosing of Basaglar switched to AM time. * If patient agreeable to improving diet, would continue with Basaglar 25 units daily. * Patient's BSGs tend to be very labile, likely would benefit from increased Novolog with meals. Could consider Novolog 8 units TIDM. Would have hold parameters to hold Novolog or give half dose if patient consumes <50% of meal. * Ultimately patient needs close follow up outpatient as insulin regimen may need titrated and adjusted.
--- NOTE | 2020-11-22 12:44 | Hospitalist Progress Note ---
Date of Service November 22, 2020 Assessment & Plan (1) Altered mental status: Acute Metabolic Encephalopathy Urinary Tract Infection--Ruled out Unclear Etiology CT head:Motion degraded exam without acute intracranial abnormality identified CXR:No acute process. Negative COVID Screen Blood Cx: No growth to date Urine Cx:Gamma Strep not Enterococcus Plan to complete 5 day course of Zosyn Mental status back to baseline Monitor Acute Kidney Injury Likely prerenal Cr:1.49>1.2>1.14 Received IV fluids Avoid nephrotoxic agents as able Monitor renal function Renal function stable Uncontrolled DM Type I HbA1C:10.3 Admits to being non compliant with dietary restrictions Continue Insulin while hospitalized Monitor BGs Appreciate glycemic pharmacy help Will need adjustment of insulin dose upon discharge Hypertension BP stable Continue Metoprolol, losartan Paroxysmal atrial fibrillation Continue metoprolol On Eliquis for anticoagulation Monitor Chronic anemia Hb at baseline Monitor CBC DVT Px: Eliquis Code Status Full code Disposition: [facility] Admission and Anticipated Discharge Date Admission Date: November 17, 2020 Subjective Patient is seen and examined at bedside States feeling well today Offers no complaints Denies chest pain, dyspnea, dizziness nausea abdominal pain Review of Systems Review of Systems: All systems reviewed & are unremarkable except as noted in HPI & below Physical Exam Physical Exam: Physical Exam: Vitals signs as noted above General Appearance:Moderately built and nourished, no apparent distress Head: normocephalic, Atraumatic Eyes: normal inspection, EOMI Neck: supple, Trachea midline Respiratory/Chest: Normal breath sounds, CTA Cardiovascular: S1, S2, No murmur Abdomen/GI:Soft, Non tender, Bowel sounds present Extremities/Musculoskeletal:normal inspection, no edema, Left BKA, Right toes amputated Neurologic/Psych:Alert, awake, grossly no focal neurological deficits Skin: normal color, warm Results & Data Results & Data ([facility]) Vital Signs (Past 12 Hours) Vital Signs Temp Pulse Pulse Pulse Resp BP BP 11/22/20 11:25 36.7 C 67 13 112/86 11/22/20 07:22 67 11/22/20 06:54 37.0 C 69 18 141/66 H Pulse Ox 11/22/20 11:25 96 11/22/20 07:22 11/22/20 06:54 92 Laboratory Results Short CBC 11/22/20 Range/Units 06:50 WBC 4.29 L (4.8-10.8) K/uL Hgb 10.4 L (14.0-18.0) g/dL Hct 31.6 L (42-52) % Plt Count 241 (130-400) K/uL [facility] 11/22/20 06:50 Sodium 141 Potassium 3.9 D Chloride 108 H Carbon Dioxide 29 BUN 15 Creatinine 1.14 Glucose 145 H Calcium 8.5 (1) Altered mental status Altered mental status type: somnolence Qualified Code(s): R40.0 - Somnolence
[2020-11-22] MEDS ORDERED: INSULIN GLARGINE SOLOSTAR 100 UNITS/ML 3 ML PEN SQ ONE (17:00)
[2020-11-22] MEDS: ATORVASTATIN 10 MG TAB PO SCH (20:05)
[2020-11-22] MEDS: SERTRALINE HCL 50 MG TABLET PO SCH (20:06)
[2020-11-22] MEDS: CARBOHYDRATES FOR HYPOGLYCEMIA PO PRN ×2 (20:18→20:40)
[2020-11-23] MEDS: INSULIN ASPART 100 UNITS/ML 3 ML PEN SC SCH ×4 (00:13→11:57)
[2020-11-23] MEDS: QUEtiapine FUMARATE 25 MG TABLET PO SCH (08:08)
[2020-11-23] MEDS: PANTOprazole 40 MG TAB PO SCH (08:08)
[2020-11-23] MEDS: APIXABAN 5 MG TABLET PO SCH (08:08)
[2020-11-23] MEDS: ASPIRIN 81 MG ECTAB PO SCH (08:09)
[2020-11-23] MEDS: METOPROLOL TARTRATE 25 MG TAB PO SCH (08:15)
[2020-11-23] MEDS: LOSARTAN POTASSIUM 50 MG TAB PO SCH (08:18)
--- NOTE | 2020-11-23 11:24 | Hospitalist Progress Note ---
Date of Service November 23, 2020 Assessment & Plan (1) Altered mental status: Acute Metabolic Encephalopathy Urinary Tract Infection--Ruled out Unclear Etiology CT head:Motion degraded exam without acute intracranial abnormality identified CXR:No acute process. Negative COVID Screen Blood Cx: No growth to date Urine Cx:Gamma Strep not Enterococcus Completed 5 day course of Zosyn Mental status back to baseline Monitor Acute Kidney Injury Likely prerenal Cr:1.49>1.2>1.14 Received IV fluids Avoid nephrotoxic agents as able Monitor renal function Renal function stable Uncontrolled DM Type I HbA1C:10.3 Admits to being non compliant with dietary restrictions Continue Insulin while hospitalized Monitor BGs Appreciate glycemic pharmacy help Counselled on dietary changes Hypertension BP stable Continue Metoprolol, losartan Paroxysmal atrial fibrillation Continue metoprolol On Eliquis for anticoagulation Monitor Chronic anemia Hb at baseline Monitor CBC DVT Px: Eliquis Code Status Full code Disposition: [facility] Admission and Anticipated Discharge Date Admission Date: November 17, 2020 Subjective Patient is seen and examined at bedside Doing well today Denies chest pain, dyspnea, dizziness nausea abdominal pain Offers no other complaints Review of Systems Review of Systems: All systems reviewed & are unremarkable except as noted in HPI & below Physical Exam Physical Exam: Physical Exam: Vitals signs as noted above General Appearance:Moderately built and nourished, no apparent distress Head: normocephalic, Atraumatic Eyes: normal inspection, EOMI Neck: supple, Trachea midline Respiratory/Chest: Normal breath sounds, CTA Cardiovascular: S1, S2, No murmur Abdomen/GI:Soft, Non tender, Bowel sounds present Extremities/Musculoskeletal:normal inspection, no edema, Left BKA, Right toes amputated Neurologic/Psych:Alert, awake, grossly no focal neurological deficits Skin: normal color, warm Results & Data Results & Data ([facility]) Vital Signs (Past 12 Hours) Vital Signs Temp Pulse Pulse Pulse Resp BP Pulse Ox 11/23/20 08:05 94 H 107/39 L 11/23/20 07:44 36.5 C 82 19 123/47 L 94 11/23/20 07:00 78 11/23/20 04:00 36.3 C L 79 18 134/75 97 (1) Altered mental status Altered mental status type: somnolence Qualified Code(s): R40.0 - Somnolence
--- NOTE | 2020-11-23 11:27 | Discharge Summary ---
Date of Service November 23, 2020 Admission HPI Per Admitting Provider History obtained from patient, family, and records. Limited history from patient secondary to disorientation. Medical history significant for hypertension, PAF on Eliquis, DM 1, mood disorder, chronic anemia (baseline hemoglobin 10-11). Last confinement April 2020 for DKA. Today patient noted to have altered mental status at [facility]. Noted to be lethargic and hyperglycemic. Patient denies chest pain, shortness of breath, cough, abdominal pain, diarrhea, dysuria. Complaining of left leg pain since this morning. At the ER, BSG noted to be 500s. IV insulin administered at the ER. Patient given Ceftriaxone for possible UTI. 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 Admission Exam Per Admitting Provider Physical Exam Physical Exam: GENERAL: Comfortable, disoriented, no respiratory distress SKIN: Pallor, warm HEENT: Bespectacled, pale palpebral conjunctivae, no ptosis, dry buccal mucosa NECK : Supple, no tenderness CHEST : CTA, no tenderness HEART : RRR, no obvious murmurs ABDOMEN: Some distention, nontender EXTREMITIES : No LE swelling/tenderness, LLE amputation stump, NEUROLOGIC : Disoriented, no facial asymmetry, no other gross focality Principal Diagnosis Acute Metabolic Encephalopathy Acute Kidney Injury Uncontrolled diabetes mellitus Discharge Data Allergies Allergy/AdvReac Type Severity Reaction Status Date / Time No Known Allergies Allergy Verified 11/17/20 20:26 Consultations 11/17/20 21:44 ED Decision to Admit Stat Procedures Performed CT head:Motion degraded exam without acute intracranial abnormality identified CXR:No acute process. Ordered Studies 11/17/20 17:05 CT head/brain wo con Stat Hospital Course (1) Altered mental status: Acute Metabolic Encephalopathy Urinary Tract Infection--Ruled out Unclear Etiology CT head:Motion degraded exam without acute intracranial abnormality identified CXR:No acute process. Negative COVID Screen Blood Cx: No growth to date Urine Cx:Gamma Strep not Enterococcus Completed 5 day course of Zosyn Mental status back to baseline Monitor Acute Kidney Injury Likely prerenal Cr:1.49>1.2>1.14 Received IV fluids Avoid nephrotoxic agents as able Monitor renal function Renal function stable Uncontrolled DM Type I HbA1C:10.3 Admits to being non compliant with dietary restrictions Continue Insulin while hospitalized Monitor BGs Appreciate glycemic pharmacy help Counselled on dietary changes Hypertension BP stable Continue Metoprolol, losartan Paroxysmal atrial fibrillation Continue metoprolol On Eliquis for anticoagulation Monitor Chronic anemia Hb at baseline Monitor CBC DVT Px: Eliquis Code Status Full code Disposition: [facility] Total Time Total Time Spent Total Time Spent (In Minutes): 40 minutes Total Time Includes: Examination of the Patient, Discharge Planning, Medication Reconciliation, Communication With Other Providers and Other Discharge Plan Discharge Items Patient Disposition: Personal Long-Term Reason For Visit: ENCEPHALOPATHY, COMPLICATED UTI, ARF Discharge Diagnosis: Acute Metabolic Encephalopathy Acute Kidney Injury Uncontrolled diabetes mellitus Condition on Discharge: Fair Activity: Resume your previous activity Exercise/Sports: Gradually increase as tolerated Non-emergency contact: Primary Care Provider Call non-emergency contact if: you have any medication questions, your symptoms worsen, your pain is not controlled, your pain is concerning for you and you have a fever Follow-up/Referrals: PHUONG CONN [Primary Care Provider] - Diet: Carb Count or DM1 and Heart Healthy Addtl Attending Provider Instructions: Follow-up with your primary care physician in 1 week Your insulin dose need to be adjusted by your physician as you have uncontrolled diabetes mellitus. Please discuss with your physician for further instructions on medication adjustment. Strict diet controlled as recommended by dietitian. Take insulin regularly. Seek immediate medical attention if your symptoms reoccur or worsen Please take all medications as instructed on discharge list below. Please call if you have any questions or problems. You can reach a [facility] hospitalist on duty at [facility] 24 hours a day by calling [phone] Pending Studies at Discharge: No Stand-Alone Forms: My [facility] [address] [employer], Smoking Cessation Skilled Items Patient informed of condition?: Yes DNR: No Discharge Level of Care: Other Communicable Disease: No Discharge Prognosis: Improving Lines: None Urinary Catheter: No Medications and DC Order Prescriptions: Continued quetiapine 25 mg tablet 12.5 mg PO BID 30 Days Qty: 30 RF: 0 quetiapine 25 mg tablet 25 mg PO HS 30 Days Qty: 30 RF: 0 sennosides [senna] 8.6 mg Tablet 8.6 mg PO QAM PRN (Reason: constipation) 10 Days Qty: 10 RF: 0 acetaminophen [Tylenol] 325 mg Tablet 650 mg PO Q6H PRN (Reason: Pain and Fever) 30 Days Qty: 14 RF: 0 atorvastatin 10 mg tablet 10 mg PO HS 30 Days Qty: 30 RF: 0 aspirin [Aspirin Low Dose] 81 mg tablet,delayed release (DR/EC) 81 mg PO QAM 30 Days Qty: 30 RF: 0 calcium carbonate 500 mg calcium (1,250 mg) Tablet 500 mg PO QAM Qty: 7 RF: 0 pantoprazole 40 mg tablet,delayed release (DR/EC) 40 mg PO QAM 30 Days Qty: 30 RF: 0 sertraline 50 mg Tablet 50 mg PO HS 30 Days Qty: 30 RF: 0 cholecalciferol (vitamin D3) 25 mcg (1,000 unit) Capsule 1,000 unit PO QAM 30 Days Qty: 30 RF: 0 metoprolol tartrate 25 mg Tablet 25 mg PO BID 30 Days Qty: 60 RF: 0 Eliquis 5 mg Tablet 5 mg PO BID 30 Days Qty: 60 RF: 0 ondansetron 4 mg tablet,disintegrating 4 mg PO Q8H PRN (Reason: nausea and vomiting) Qty: 10 RF: 0 losartan 50 mg tablet 50 mg PO DAILY RF: 0 Basaglar KwikPen U-100 Insulin 100 unit/mL (3 mL) Insulin Pen 25 unit SUBCUT QAM RF: 0 insulin aspart U-100 [Novolog Flexpen U-100 Insulin] 100 unit/mL (3 mL) Insulin Pen 0 unit SUBCUT TIDM RF: 0 Discharge Orders: Discharge Order (Routine); Ordered 11/23/20 Ordered By: Marcelo Alexis Admission Data Admit Date/Time: 11/17/20 22:20 Attending Provider: Marcelo Alexis Admit Provider: Johann Phillips Primary Care Provider: PHUONG CONN Other Providers: Johann Phillips Other Interventions: Discharge Summary Assessment (RN) Last Done: 11/23/20 11:30
[2020-11-23] MEDS ORDERED: INSULIN GLARGINE SOLOSTAR 100 UNITS/ML 3 ML PEN SQ ONE (12:00)
== END 2020-11-23 12:47 | disposition home or self-care (01) | DRG 682 ==
LOC: ED 16:46 → 2N 22:20

== ENCOUNTER 2021-01-06 22:31 | Inpatient (IN) ==
--- NOTE | 2021-01-06 23:47 | Emergency Department Note ---
History of Present Illness General Chief complaint: Hypoglycemia Time Seen by Provider: 01/06/21 23:12 Source: patient Mode of arrival: EMS Limitations: altered mental status History of Present Illness Provider complaint: Altered mental status Onset (ago): hour(s) Maximum Pain Intensity: 0 This is a 70-year-old male brought in by EMS due to concern for altered mental status and low blood sugar. Patient resides at [facility]. According to their report to EMS patient's blood sugar was significantly elevated this evening and he received his normal insulin dosing. Patient then into the evening seem to become more confused and they assumed he was having a hy poglycemic event and gave him 3 tubes of oral glucose. Upon arrival of EMS, their first check of blood sugar was 42. He was given D10 through an IV that was established and by arrival here was up to 139. On my bedside exam, patient answered no to every question, cannot otherwise provide any additional history. He also thought it was 2019. He did recognize he was in the hospital. Pt seen during a time of high acuity and national emergency pandemic while wearing PPE. Home Medications Medication Instructions Recorded Confirmed Type Eliquis 5 mg PO BID 30 Days #60 tab 04/27/20 01/06/21 Rx aspirin [Aspirin Low Dose] 81 mg PO QAM 30 Days #30 tab 04/27/20 01/06/21 Rx atorvastatin 10 mg PO HS 30 Days #30 tab 04/27/20 01/06/21 Rx cholecalciferol (vitamin D3) 1,000 unit PO QAM 30 Days #30 cap 04/27/20 01/06/21 Rx metoprolol tartrate 25 mg PO BID 30 Days #60 tab 04/27/20 01/06/21 Rx pantoprazole 40 mg PO QAM 30 Days #30 tab 04/27/20 01/06/21 Rx ondansetron 4 mg PO Q8H PRN #10 tab 07/28/20 01/06/21 Rx Basaglar KwikPen U-100 Insulin 25 unit SUBCUT QAM 11/17/20 01/06/21 History losartan 50 mg PO QAM 11/17/20 01/06/21 History insulin aspart U-100 [Novolog See Rx Instructions .ROUTE .COMPLEX 11/22/20 01/06/21 History Flexpen U-100 Insulin] acetaminophen [Tylenol] 650 mg PO Q6H PRN MDD 3 GRAMS/24 01/06/21 01/06/21 History HOURS calcium carbonate [Oysco-500] 500 mg PO QAM 01/06/21 01/06/21 History polyethylene glycol 3350 [Miralax] 17 g PO DAILY PRN 01/06/21 01/06/21 History quetiapine 25 mg PO TID 01/06/21 01/06/21 History sennosides [senna] 8.6 mg PO QAM 01/06/21 01/06/21 History sertraline 25 mg PO QPM 01/06/21 01/06/21 History sertraline 50 mg PO QPM 01/06/21 01/06/21 History Allergies Allergy/AdvReac Type Severity Reaction Status Date / Time No Known Allergies Allergy Verified 01/06/21 23:17 Past Med/Surg History Medical History (Updated 01/07/21 @ 04:52 by Keara Parks DO) Bipolar 1 disorder Cognitive disorder COVID-19 Depression Diabetes mellitus type 1 with complications HTN (hypertension) Paroxysmal A-fib Status post amputation of toe of left foot Vitamin D deficiency Surgical History Status post below-knee amputation of left lower extremity Family History Other Family history unobtainable due to patient's condition Social History Smoking Status: Unknown if ever smoked Hx Alcohol Use: No (unknown) Preferred Language: Mongolian Communication Ability: Effective [employer] Required: No Beliefs That Will Affect Care: None marital status: Single Current Living Situation: Other Current Living Situation Comment: [facility] Feels Safe at Home: Yes Assistive Devices: Glasses Review of Systems See HPI for pertinent positives & negatives. and A total of 10 systems reviewed and were otherwise negative Physical Exam Vital Signs Vital Signs - 24 hr 01/07/21 05:30 01/07/21 06:00 01/07/21 06:01 Pulse Rate 84 83 84 Pulse Rate from SpO2 Sensor 85 82 84 Respiratory Rate 19 20 20 Blood Pressure 132/61 Blood Pressure Mean 84 Pulse Oximetry 95 98 97 GENERAL: alert, well appearing, well nourished, no distress, non-toxic EYE EXAM: normal conjunctiva, PERRL and EOM's grossly intact OROPHARYNX: no exudate, no erythema, lips, buccal mucosa, and tongue normal and mucous membranes are moist NECK: supple, no nuchal rigidity, no adenopathy, non-tender LUNGS: Clear to auscultation. Normal chest wall mechanics, no w/r/r HEART: no murmurs, S1 normal and S2 normal ABDOMEN: abdomen soft, non-tender, normo-active bowel sounds, no masses, no rebound or guarding. BACK: Back is symmetrical on inspection and there is no deformity, no midline tenderness, no CVA tenderness. SKIN: no rashes and no bruising UPPER EXTREMITIES: upper extremities are grossly normal. FROM, nml pulses b/l. LOWER EXTREMITIES: No pitting edema. FROM RLE, Left BKA, nml pulses RLE. NEURO EXAM: Oriented to place, confused to date/time/recent events, cranial nerves II-XII grossly intact, normal speech, no gross weakness of arms, no gross weakness of legs. Gross sensation intact. Course Course 0145: Patient resting, vital signs stable. 0355: Patient states he feels better. Patient still confused to date and time. 0402: No answer after calling [facility] x2. 0444: Discussed with MEGHANA Smith at [facility]. She states patient is typically awake, alert, oriented, able to carry on a conversation. His sister was made aware that he was being sent to the emergency room and is involved in his care. 0517: Discussed with Dr. Apodaca. Administered Medications Apixaban (Apixaban 5 Mg Tablet) 5 mg PO BID AYDEN Stop: 02/06/21 08:59 Last Admin: 01/07/21 20:48 Dose: 5 mg Documented by: [id number] Admin: 01/07/21 09:53 Dose: 5 mg Documented by: [id number] Aspirin (Aspirin 81 Mg Ectab) 81 mg PO QAM AYDEN Stop: 02/06/21 08:59 Last Admin: 01/07/21 10:06 Dose: 81 mg Documented by: [id number] Atorvastatin Calcium (Atorvastatin 10 Mg Tab) 10 mg PO HS AYDEN Stop: 02/06/21 20:59 Last Admin: 01/07/21 20:48 Dose: 10 mg Documented by: [id number] Calcium Carbonate (Calcium Carbonate 1250mg Tab) [facility] Stop: 02/06/21 08:59 Last Admin: 01/07/21 09:52 Dose: 1,250 mg Documented by: [id number] Dextrose (Dextrose 50% 50 Ml Syringe) 25 - 50 ml IV UD PRN; Protocol PRN Reason: Hypoglycemia Protocol Stop: 02/06/21 09:29 Last Admin: 01/07/21 13:06 Dose: 25 ml Documented by: [id number] Sodium Chloride (Nss 1000ml) 1,000 mls @ 80 mls/hr IV .[id number] [facility] Stop: 02/06/21 08:20 Last Admin: 01/07/21 22:21 Dose: 80 mls/hr Documented by: [id number] Infusion: 01/07/21 22:21 Dose: 80 mls/hr Documented by: [id number] Admin: 01/07/21 09:52 Dose: 80 mls/hr Documented by: [id number] Insulin Aspart (Insulin Aspart 100 Units/Ml 3 Ml Pen) 0 units SC ACHS [facility] Stop: 02/06/21 11:29 Last Admin: 01/07/21 20:50 Dose: Not Given Documented by: [id number] Admin: 01/07/21 17:05 Dose: Not Given Documented by: [id number] Admin: 01/07/21 13:02 Dose: Not Given Documented by: [id number] Losartan Potassium (Losartan Potassium 50 Mg Tab) 50 mg PO [facility] Stop: 02/06/21 08:59 Last Admin: 01/07/21 09:52 Dose: 50 mg Documented by: [id number] Metoprolol Tartrate (Metoprolol Tartrate 25 Mg Tab) 25 mg PO BID [facility] Stop: 02/06/21 08:59 Last Admin: 01/07/21 20:47 Dose: 25 mg Documented by: [id number] Admin: 01/07/21 09:52 Dose: 25 mg Documented by: [id number] Pantoprazole Sodium (Pantoprazole 40 Mg Tab) 40 mg PO QAM [facility] Stop: 02/06/21 08:59 Last Admin: 01/07/21 10:06 Dose: 40 mg Documented by: [id number] Quetiapine Fumarate (Quetiapine Fumarate 25 Mg Tablet) 25 mg PO TID [facility] Stop: 02/06/21 08:59 Last Admin: 01/07/21 20:47 Dose: 25 mg Documented by: [id number] Admin: 01/07/21 13:06 Dose: 25 mg Documented by: [id number] Admin: 01/07/21 09:52 Dose: 25 mg Documented by: [id number] Sennosides (Senna 8.6 Mg Tab) 8.6 mg PO QAM [facility] Stop: 02/06/21 08:59 Last Admin: 01/07/21 09:52 Dose: 8.6 mg Documented by: [id number] Sertraline HCl (Sertraline Hcl 50 Mg Tablet) 75 mg PO QPM [facility] Stop: 02/06/21 20:59 Last Admin: 01/07/21 20:48 Dose: 75 mg Documented by: [id number] Vitamin D (Cholecalciferol 1,000 Units 25 Mcg Tab) 1,000 units PO QAM [facility] Stop: 02/06/21 08:59 Last Admin: 01/07/21 10:06 Dose: 1,000 units Documented by: [id number] Discontinued Medications Sodium Chloride (Nss 1000ml) 1,000 mls @ 125 mls/hr IV .Q8H [facility] Stop: 02/05/21 23:29 Last Admin: 01/07/21 08:24 Dose: Not Given Documented by: [id number] Infusion: 01/07/21 07:42 Dose: 0 mls/hr Documented by: [id number] Admin: 01/07/21 00:01 Dose: 125 mls/hr Documented by: [id number] Insulin Aspart (Insulin Aspart 100 Units/Ml 3 Ml Pen) 0 units SC 0000,0400 [facility] Stop: 01/08/21 04:01 Last Admin: 01/08/21 04:08 Dose: Not Given Documented by: [id number] Admin: 01/08/21 00:36 Dose: 2 units Documented by: [id number] Cosigned by: [id number] Insulin Glargine (Insulin Glargine Solostar 100 Units/Ml 3 Ml Pen) 7 units SC 1630 ONE Stop: 01/07/21 16:31 Last Admin: 01/07/21 17:30 Dose: 7 units Documented by: [id number] Cosigned by: [id number] Insulin Glargine (Insulin Glargine Solostar 100 Units/Ml 3 Ml Pen) 8 units SC NOW ONE Stop: 01/07/21 17:46 Last Admin: 01/07/21 17:48 Dose: 8 units Documented by: [id number] Cosigned by: [id number] Ondansetron HCl (Ondansetron Inj 2 Mg/Ml 2 Ml Vial) 4 mg IV NOW STA Stop: 01/07/21 19:20 Last Admin: 01/07/21 19:45 Dose: 4 mg Documented by: [id number] Medical Decision Making Differential Diagnosis Differential diagnoses includes but is not limited to toxic, metabolic, infectious, traumatic, cardiac, neurologic, hematologic, psychiatric and inflammatory etiologies. Medical Records Attestation: I reviewed the patient's medical records. Home Medications Current Medication List: was personally reviewed by ms Laboratory Data Attestation: I reviewed the patient's lab results. Result diagrams: 01/07/21 08:32 01/07/21 08:32 Lab Results 01/06/21 01/06/21 01/06/21 Range/Units 22:35 22:50 22:50 WBC 8.76 (4.8-10.8) K/uL RBC 3.91 L (4.7-6.1) M/uL Hgb 11.3 L (14.0-18.0) g/dL Hct 34.4 L (42-52) % MCV 88.0 (80-100) fL MCH 28.9 (25-34) pg MCHC 32.8 (32-36) g/dL RDW Std Deviation 46.4 H (36.4-46.3) fL RDW Coeff of Jace 14.5 (11.5-14.5) % Plt Count 288 (130-400) K/uL MPV 9.9 (7.4-10.4) fL Immature Gran % (Auto) 0.2 % Neut % (Auto) 78.3 % Lymph % (Auto) 15.1 % [place] % (Auto) 5.3 % Eos % (Auto) 0.9 % Baso % (Auto) 0.2 % Neut # (Auto) 6.86 H (1.4-6.5) K/uL Lymph # (Auto) 1.32 (1.2-3.4) K/uL [place] # (Auto) 0.46 (0.11-0.59) K/uL Eos # (Auto) 0.08 (0-0.5) K/uL Baso # (Auto) 0.02 (0-0.2) K/uL Immature Gran # (Auto) 0.02 (0.00-0.02) K/uL Sodium 137 (136-145) mmol/L Potassium 4.1 (3.5-5.1) mmol/L Chloride 104 (98-107) mmol/L Carbon Dioxide 30 (21-32) mmol/L Anion Gap 3.0 (3-11) BUN 32 H (7-18) mg/dl Creatinine 1.22 (0.6-1.4) mg/dl Est Cr Clr Drug Dosing 50.7 ml/min Est GFR ( Amer) 69.7 ml/min Est GFR (Non-Af Amer) 60.1 ml/min BUN/Creatinine Ratio 26.1 H (10-20) Glucose 132 H (70-99) mg/dl POC Glucose 132 H (70-99) mg/dl Calcium 9.0 (8.5-10.1) mg/dl Magnesium 2.4 (1.8-2.4) mg/dl Total Bilirubin 0.3 (0.2-1) mg/dl AST 20 (15-37) U/L ALT 30 (12-78) U/L Alkaline Phosphatase 92 (45-117) U/L Troponin I < 0.015 (0-0.045) ng/ml Total Protein 7.4 (6.4-8.2) gm/dl Albumin 3.4 (3.4-5.0) gm/dl Globulin 4.0 (2.5-4.0) gm/dl Albumin/Globulin Ratio 0.9 (0.9-2) Lipase 77 (73-393) U/L Urine Color Urine Appearance (Clear) Urine pH (4.5-7.5) Ur Specific [place] (1.000-1.030) Urine Protein (Negative) Urine Glucose (UA) (Negative) Urine Ketones (Negative) Urine Blood (Negative) Urine Nitrite (Negative) Urine Bilirubin (Negative) Urine Urobilinogen (Negative) Ur Leukocyte Esterase (Negative) COVID-19 Eval Order SARS-CoV-2 (PCR) (Negative) 01/07/21 01/07/21 01/07/21 Range/Units 00:45 00:45 02:34 WBC (4.8-10.8) K/uL RBC (4.7-6.1) M/uL Hgb (14.0-18.0) g/dL Hct (42-52) % MCV (80-100) fL MCH (25-34) pg MCHC (32-36) g/dL RDW Std Deviation (36.4-46.3) fL RDW Coeff of Jace (11.5-14.5) % Plt Count (130-400) K/uL MPV (7.4-10.4) fL Immature Gran % (Auto) % Neut % (Auto) % Lymph % (Auto) % [place] % (Auto) % Eos % (Auto) % Baso % (Auto) % Neut # (Auto) (1.4-6.5) K/uL Lymph # (Auto) (1.2-3.4) K/uL [place] # (Auto) (0.11-0.59) K/uL Eos # (Auto) (0-0.5) K/uL Baso # (Auto) (0-0.2) K/uL Immature Gran # (Auto) (0.00-0.02) K/uL Sodium (136-145) mmol/L Potassium (3.5-5.1) mmol/L Chloride (98-107) mmol/L Carbon Dioxide (21-32) mmol/L Anion Gap (3-11) BUN (7-18) mg/dl Creatinine (0.6-1.4) mg/dl Est Cr Clr Drug Dosing ml/min Est GFR ( Amer) ml/min Est GFR (Non-Af Amer) ml/min BUN/Creatinine Ratio (10-20) Glucose (70-99) mg/dl POC Glucose 122 H (70-99) mg/dl Calcium (8.5-10.1) mg/dl Magnesium (1.8-2.4) mg/dl Total Bilirubin (0.2-1) mg/dl AST (15-37) U/L ALT (12-78) U/L Alkaline Phosphatase (45-117) U/L Troponin I (0-0.045) ng/ml Total Protein (6.4-8.2) gm/dl Albumin (3.4-5.0) gm/dl Globulin (2.5-4.0) gm/dl Albumin/Globulin Ratio (0.9-2) Lipase (73-393) U/L Urine Color Urine Appearance (Clear) Urine pH (4.5-7.5) Ur Specific [place] (1.000-1.030) Urine Protein (Negative) Urine Glucose (UA) (Negative) Urine Ketones (Negative) Urine Blood (Negative) Urine Nitrite (Negative) Urine Bilirubin (Negative) Urine Urobilinogen (Negative) Ur Leukocyte Esterase (Negative) COVID-19 Eval Order Covid19 at [facility] SARS-CoV-2 (PCR) NEGATIVE (Negative) 01/07/21 Range/Units 05:20 WBC (4.8-10.8) K/uL RBC (4.7-6.1) M/uL Hgb (14.0-18.0) g/dL Hct (42-52) % MCV (80-100) fL MCH (25-34) pg MCHC (32-36) g/dL RDW Std Deviation (36.4-46.3) fL RDW Coeff of Jace (11.5-14.5) % Plt Count (130-400) K/uL MPV (7.4-10.4) fL Immature Gran % (Auto) % Neut % (Auto) % Lymph % (Auto) % [place] % (Auto) % Eos % (Auto) % Baso % (Auto) % Neut # (Auto) (1.4-6.5) K/uL Lymph # (Auto) (1.2-3.4) K/uL [place] # (Auto) (0.11-0.59) K/uL Eos # (Auto) (0-0.5) K/uL Baso # (Auto) (0-0.2) K/uL Immature Gran # (Auto) (0.00-0.02) K/uL Sodium (136-145) mmol/L Potassium (3.5-5.1) mmol/L Chloride (98-107) mmol/L Carbon Dioxide (21-32) mmol/L Anion Gap (3-11) BUN (7-18) mg/dl Creatinine (0.6-1.4) mg/dl Est Cr Clr Drug Dosing ml/min Est GFR ( Amer) ml/min Est GFR (Non-Af Amer) ml/min BUN/Creatinine Ratio (10-20) Glucose (70-99) mg/dl POC Glucose (70-99) mg/dl Calcium (8.5-10.1) mg/dl Magnesium (1.8-2.4) mg/dl Total Bilirubin (0.2-1) mg/dl AST (15-37) U/L ALT (12-78) U/L Alkaline Phosphatase (45-117) U/L Troponin I (0-0.045) ng/ml Total Protein (6.4-8.2) gm/dl Albumin (3.4-5.0) gm/dl Globulin (2.5-4.0) gm/dl Albumin/Globulin Ratio (0.9-2) Lipase (73-393) U/L Urine Color Yellow Urine Appearance Clear (Clear) Urine pH 6.0 (4.5-7.5) Ur Specific [place] 1.019 (1.000-1.030) Urine Protein Negative (Negative) Urine Glucose (UA) Negative (Negative) Urine Ketones Negative (Negative) Urine Blood Negative (Negative) Urine Nitrite Negative (Negative) Urine Bilirubin Negative (Negative) Urine Urobilinogen Negative (Negative) Ur Leukocyte Esterase Negative (Negative) COVID-19 Eval Order SARS-CoV-2 (PCR) (Negative) Imaging Data Radiologist's Impression: Chest X-Ray 01/06/21 23:26 XR chest 1V portable HISTORY: 70 years-old Male ams acutely altered mental status COMPARISON: Chest radiograph 11/17/2020, chest CT 07/28/2020. TECHNIQUE: Portable AP view of the chest FINDINGS: Cardiomediastinal and hilar silhouettes are unchanged. No pneumothorax, pleural effusion, airspace consolidation or overt pulmonary edema. Mild chronic inter stitial coarsening. Degenerative changes of the shoulders and spine. IMPRESSION: No acute process. ACT 112: Negative or not required by law. The above report was generated using voice recognition software. It may contain grammatical, syntax or spelling errors. Electronically signed by: Esteban Romero M.D. 01/07/2021 8:[address] 01/06/21 23:26 CT head/brain wo con CLINICAL HISTORY: Acute change in mental status COMPARISON STUDY: 11/17/2020 TECHNIQUE: Axial CT of the brain is performed from the vertex to the skull base. IV contrast was not administered for this examination. A dose lowering technique was utilized adhering to the principles of ALARA. CT DOSE: 614.27 mGy.cm FINDINGS: No intra or extra-axial mass lesions are visualized. There is no CT evidence of acute cortical infarction. There is no evidence of midline shift. There is no acute hemorrhage. No calvarial fractures are visualized. There are moderate white matter hypodensities likely on a small vessel basis. Old small lacunar infarcts remain similar. There is mild ventricular prominence, finding which is felt to be secondary to volume loss. There is no evidence of acute sinusitis IMPRESSION: No acute intracranial findings ACT 112: Negative or not required by law. Electronically signed by: Ever Potter M.D. 01/07/2021 7:[address] head: No ICH, mass-effect or midline shift. Prominent patchy hypodensities in bihemispheric white matter, likely sequelae of chronic microvascular ischemia. Small chronic in appearance lacunar infarction in the left thalamus as well as small chronic lacunar infarcts in the left centrum [place]ov[place]. Visualized sinuses and mastoid air cells are clear. Radiologist: Karley Rivero MD ECG Data Attestation: I personally reviewed and interpreted this ECG as follows: Indication: + altered mental status Rate (beats per minute): 76 Rhythm: + normal sinus ECG Intervals/blocks: + Normal QRS and + Normal QT ECG Bend: + Normal ECG ST segments: + Normal ST segments MDM Narrative This is a 70-year-old male brought in by EMS after an episode of hypoglycemia at [facility]. Patient does have history of diabetes, and became altered this evening. Patient's blood sugar was improved on arrival as he had been given dextrose prehospital. Blood sugar was checked several times while in the emergency room as were other labs and imaging due to the confusion and patient's age and other comorbidities. Patient moving all 4 extremities, no obvious focal neuro deficits. Patient was afebrile and hemodynamically stable. Patient continued to have persistent confusion. Based on my conversation with the nighttime nurse at [facility], he typically is awake and oriented. Due to concern for persistent altered mental status, case discussed with the hospitalist for additional evaluation and management. Patient was cautiously rehydrated as a precaution. No ectopy or dysrhythmia noted on telemetry. No evidence of occult infectious etiology. UA was still pending at time of discussion with hospitalist as we placed a condom catheter on the patient for urine collection as we were concerned for placing a catheter due to his initial agitation. An order was placed for continuous cardiac monitoring. The monitor shows a rate of _68_ with _normal sinus_ rhythm. Impression & Plan AMS (altered mental status), Hypoglycemia, Dehydration Discharge Plan Visit Data Chief Complaint: Hypoglycemia ED Provider: Keara Parks Discharge Problem: AMS (altered mental status), Hypoglycemia, Dehydration Patient Disposition: Admitted As Inpatient Discharge Instructions Interventions: ED Discharge Assessment Last Done: 01/07/21 07:41 Discharge Problem: AMS (altered mental status) Qualifiers: Altered mental status type: unspecified Qualified Code(s): R41.82 - Altered mental status, unspecified
[2021-01-06 23:54] LABS: Basophils # (auto) 0.02 K/uL (0-0.2); Basophils % (auto) 0.2 %; Eosinophils # (auto) 0.08 K/uL (0-0.5); Eosinophils % (auto) 0.9 %; Hematocrit (blood only) 34.4 % (42-52); Hemoglobin 11.3 g/dL (14.0-18.0); Immature Granulocytes # (auto) 0.02 K/uL (0.00-0.02); Immature Granulocytes % (auto) 0.2 %; Lymphocytes # (auto) 1.32 K/uL (1.2-3.4); Lymphocytes % (auto) 15.1 %; Mean Corpuscular Hemoglobin 28.9 pg (25-34); Mean Corpuscular Hgb Conc 32.8 g/dL (32-36); Mean Platelet Volume 9.9 fL (7.4-10.4); Monocytes # (auto) 0.46 K/uL (0.11-0.59); Monocytes % (auto) 5.3 %; Neutrophils # (auto) 6.86 K/uL (1.4-6.5); Neutrophils % (auto) 78.3 %; Platelet Count 288 K/uL (130-400); RDW Coefficient of Variation 14.5 % (11.5-14.5); RDW Standard Deviation 46.4 fL (36.4-46.3); Red Blood Count 3.91 M/uL (4.7-6.1); White Blood Count 8.76 K/uL (4.8-10.8)
[2021-01-07] MEDS: SODIUM CHLORIDE 0.9% 1000ML 1,000 ML IV SCH ×4 (00:01→22:21)
[2021-01-07 00:06] LABS: Alanine Aminotransferase 30 U/L (12-78); Albumin Level 3.4 gm/dl (3.4-5.0); Aspartate Aminotransferase 20 U/L (15-37); BUN Creatinine Ratio 26.1 (10-20); Blood Urea Nitrogen 32 mg/dl (7-18); Carbon Dioxide 30 mmol/L (21-32); Chloride 104 mmol/L (98-107); Creatinine Clr Calc Pharmacy 50.7 ml/min; Est GFR (African American) 69.7 ml/min; Est GFR (Non-African American) 60.1 ml/min; Glucose 132 mg/dl (70-99); Lipase 77 U/L (73-393); Magnesium 2.4 mg/dl (1.8-2.4); Potassium 4.1 mmol/L (3.5-5.1); Sodium 137 mmol/L (136-145)
[2021-01-07 00:11] LABS: Albumin Globulin Ratio 0.9 (0.9-2); Alkaline Phosphatase 92 U/L (45-117); Bilirubin,Total 0.3 mg/dl (0.2-1); Total Protein 7.4 gm/dl (6.4-8.2); Troponin I < 0.015 ng/ml (0-0.045)
[2021-01-07 05:29] LABS: Appearance Urine Clear (Clear); Bilirubin Urine Negative (Negative); Blood Urine Negative (Negative); Color Urine Yellow; Glucose Urine UA Negative (Negative); Ketones Urine Negative (Negative); Leukocyte Esterase Urine Negative (Negative); Nitrite Urine Negative (Negative); Protein Urine Negative (Negative); Specific Gravity Urine 1.019 (1.000-1.030); Urobilinogen Urine Negative (Negative)
--- NOTE | 2021-01-07 07:57 | CT Scan Report ---
CT head/brain wo con CLINICAL HISTORY: Acute change in mental status COMPARISON STUDY: 11/17/2020 TECHNIQUE: Axial CT of the brain is performed from the vertex to the skull base. IV contrast was not administered for this examination. A dose lowering technique was utilized adhering to the principles of ALARA. CT DOSE: 614.27 mGy.cm FINDINGS: No intra or extra-axial mass lesions are visualized. There is no CT evidence of acute cortical infarc tion. There is no evidence of midline shift. There is no acute hemorrhage. No calvarial fractures ar e visualized. There are moderate white matter hypodensities likely on a small vessel basis. Old small lacunar infar cts remain similar. There is mild ventricular prominence, finding which is felt to be secondary to volume loss. There is no evidence of acute sinusitis IMPRESSION: No acute intracranial findings ACT 112: Negative or not required by law. Electronically signed by: Ever Potter M.D. 01/07/2021 7:56 AM
--- NOTE | 2021-01-07 08:01 | History and Physical Report ---
DATE OF ADMISSION: 01/07/2021 CHIEF COMPLAINT: Encephalopathy, hypoglycemia. HISTORY OF PRESENT ILLNESS: This is a 70-year-old male with past medical history significant for diabetes, paroxysmal atrial fibrillation, history of DKA, history of depression, history of mood disorder, chronic anemia, baseline hemoglobin 10-11, hypertension, bipolar disorder, left above-knee amputation. Currently living at [facility]. As per the sister, the patient was in an accident 2 years ago. She also thinks that the patient might have also CVA. Since then, his mental status is not that good and he is at [facility] and baseline he does not make much sense as per the sister. As per the sister, he is a DNR, but the last admission in November recently, he was a full code. Could not get any paperwork from [facility] about his code status. Tried to call [facility], but not able to reach them. As per the ER, the patient was brought here because of altered mental status and low blood sugar. It seems that the patient's sugars were significantly elevated last evening and he received his normal insulin dosing and then the patient suddenly in the evening became more confused and they assumed it was a hypoglycemic event and gave him oral glucose. Per the EMS, his blood sugars were 42. He was given dextrose and by the time he came to the ER, it was 139. His glucose did not decline after that. The patient is oriented to name, knows that he is in the hospital, but could not tell the date or his date of . He says no to everything. Denies any headache, denies any chest pain, denies shortness of breath, denies cough, denies feeling hot or cold, denies nausea, denies abdominal pain. The ER physician was able to talk to his nurse in the correction who thought he was a bit more confused than his usual. His imaging studies, CT scan of the head was okay for any acute findings. So it was advised to observe in the hospital for now.But as per the sister his baseline mental status is confused and they are also trying to do some therapy at correction recently to make him more mobile. His labs are unremarkable. His urinalysis is negative. COVID is negative. Chest x-ray is also unremarkable. Hemodynamics are stable currently. ALLERGIES: No known drug allergies. PAST MEDICAL HISTORY: As mentioned above. PAST SURGICAL HISTORY: Left below-knee amputation. FAMILY HISTORY: Could not be obtained at this time. SOCIAL HISTORY: As per records, nonsmoker, no alcohol use. Currently a correction resident. MEDICATIONS: Currently, the patient is on Tylenol 650 mg p.o. q. 6 hours p.r.n., aspirin 81 mg p.o. daily, atorvastatin 10 mg p.o. at bedtime, Basaglar insulin 25 units subcutaneous in a.m., calcium carbonate 500 mg p.o. a.m., vitamin D 1000 units p.o. daily, Eliquis 5 mg p.o. b.i.d., NovoLog FlexPen as directed, losartan 50 mg p.o. a.m., metoprolol tartrate 25 mg p.o. b.i.d., Zofran 4 mg p.o. q. 8 hours p.r.n., Protonix 40 mg p.o. a.m., MiraLax 17 g p.o. daily p.r.n. Seroquel 25 mg p.o. t.i.d., Senna 8.6 mg p.o. a.m., sertraline 75 mg p.o. p.m. REVIEW OF SYSTEMS: Currently unavailable as the patient is somewhat confused. PHYSICAL EXAMINATION: GENERAL: The patient is alert and awake, oriented to name and place. VITAL SIGNS: Temperature 36.9, pulse 84, respiratory rate 20, blood pressure 132/61, oxygen 97% on room air. HEENT: Pupils equal, round and reactive to light. Oral mucosa moist. NECK: No JVD, no neck masses. CARDIOVASCULAR: S1 and S2 heard. Regular rate and rhythm. No murmur, no gallop. RESPIRATORY SYSTEM: Normal AP diameter. No accessory muscle use. No wheezing, no crackles. ABDOMEN: Soft, bowel sounds present, nontender, no distention. CENTRAL NERVOUS SYSTEM: Alert and awake, oriented to name and place. Moves his extremities, obeys simple commands. No facial droop. EXTREMITIES: Status post left below-knee amputation. No edema, no erythema seen. LABORATORY DATA: WBC 8.7, hemoglobin 11.3, hematocrit 34.4, platelets 288. Sodium 137, potassium 4.1, chloride 104, bicarbonate 30, BUN 32, creatinine 1.2, serum glucose 132, calcium 9, magnesium 2.4, total bilirubin 0.3, AST 20, ALT 30, alkaline phosphatase 92. Troponin I less than 0.015. Lipase 77. Urinalysis negative. SARS-CoV-2 PCR negative. IMAGING DATA: Head CT, preliminary report, no mass effect or midline shift. Small chronic in appearance of the lacunar infarction in the left thalamus as well as chronic lacunar infarcts in the left centrum semiovale. Chest x-ray, no acute findings. EKG: Normal sinus rhythm at a rate of 76, no significant change was found. ASSESSMENT AND PLAN: This is a 70-year-old male who presents with encephalopathy most likely secondary to hypoglycemia. 1. Metabolic encephalopathy, secondary to hypoglycemia: Currently, the patient is afebrile, hemodynamically stable. No leukocytosis. Urinalysis negative. Chest x-ray okay. CT of the head is okay. EKG okay. No obvious source of any infection. His sugars are improved with dextrose. There is a question of his not being back to baseline as per the ER physician talking to the [facility], but as per my conversation with the sister, his baseline mental status is confused, does not make much sense. Tried to call [facility], but was not able to reach them. Meanwhile, we will keep in the hospital and observe and monitor his sugars. Monitor hemodynamics. If any concerns, will get an MRI scan of the head and neuro consult.Will try to call [facility] in the a.m.Soft bite diet and speech evaluation in am. 2. Diabetes: Came with hypoglycemic episode. The patient has history of diabetic ketoacidosis in the past. We will hold his home insulin regimen. We will place him on insulin sliding scale. Follow HbA1c levels. We will consult pharmacy for glycemia management. 3. History of atrial fibrillation: Continue his metoprolol and Eliquis. 4. History of hypertension: Continue his losartan, metoprolol. We will monitor his blood pressure. 5. History of hyperlipidemia: Continue statin. 6. History of stroke: On aspirin and statin. 7. History of depression: Continue his Zoloft and Seroquel. 8. Cognitive disorder: Monitor for any delirium. 9. Deep venous thrombosis prophylaxis: On Eliquis. DISPOSITION: Monitor in the med tele. PT/OT prior to discharge. Social service to help with discharge planning. Plan to discharge back to [facility] when stable. Code Status, sister states he is a DNR, but last admission he was a full code. Not able to contact and could not get anything from [facility]. Will contact [facility] in am for his code status. Job ID: [id number] MTDD
--- NOTE | 2021-01-07 08:09 | XRay Report ---
XR chest 1V portable HISTORY: 70 years-old Male ams acutely altered mental status COMPARISON: Chest radiograph 11/17/2020, chest CT 07/28/2020. TECHNIQUE: Portable AP view of the chest FINDINGS: Cardiomediastinal and hilar silhouettes are unchanged. No pneumothorax, pleural effusion, airspace co nsolidation or overt pulmonary edema. Mild chronic interstitial coarsening. Degenerative changes of t he shoulders and spine. IMPRESSION: No acute process. ACT 112: Negative or not required by law. The above report was generated using voice recognition software. It may contain grammatical, syntax o r spelling errors. Electronically signed by: Esteban Romero M.D. 01/07/2021 8:08 AM
[2021-01-07] MEDS ORDERED: ACETAMINOPHEN 325 MG TAB PO PRN (08:21)
[2021-01-07] MEDS ORDERED: NITROGLYCERIN SL 0.4 MG/TAB TAB SL PRN (08:21)
[2021-01-07] MEDS ORDERED: POLYETHYLENE (MIRALAX) 17 GM PACK PO PRN (08:21)
[2021-01-07 09:05] LABS: Basophils # (auto) 0.01 K/uL (0-0.2); Basophils % (auto) 0.1 %; Eosinophils # (auto) 0.05 K/uL (0-0.5); Eosinophils % (auto) 0.5 %; Hematocrit (blood only) 31.9 % (42-52); Hemoglobin 10.7 g/dL (14.0-18.0); Immature Granulocytes # (auto) 0.03 K/uL (0.00-0.02); Immature Granulocytes % (auto) 0.3 %; Lymphocytes # (auto) 1.71 K/uL (1.2-3.4); Lymphocytes % (auto) 16.3 %; Mean Corpuscular Hemoglobin 29.3 pg (25-34); Mean Corpuscular Hgb Conc 33.5 g/dL (32-36); Mean Corpuscular Volume 87.4 fL (80-100); Mean Platelet Volume 9.5 fL (7.4-10.4); Monocytes # (auto) 0.61 K/uL (0.11-0.59); Monocytes % (auto) 5.8 %; Neutrophils # (auto) 8.09 K/uL (1.4-6.5); Platelet Count 271 K/uL (130-400); RDW Coefficient of Variation 14.4 % (11.5-14.5); Red Blood Count 3.65 M/uL (4.7-6.1)
[2021-01-07] MEDS ORDERED: PHARMACY GLYCEMIC MGMT CONSULT PRN (09:26)
[2021-01-07] MEDS ORDERED: GLUCAGON FOR INJ 1 MG VIAL IM PRN (09:30)
[2021-01-07] MEDS ORDERED: GLUCOSE 10 TABS/TUBE PO PRN (09:30)
[2021-01-07] MEDS ORDERED: CARBOHYDRATES FOR HYPOGLYCEMIA PO PRN (09:30)
[2021-01-07] MEDS ORDERED: GLUCOSE 40% GEL 15 GM TUBE PO PRN (09:30)
[2021-01-07 09:33] LABS: BUN Creatinine Ratio 26.2 (10-20); Calcium 8.8 mg/dl (8.5-10.1); Creatinine Clr Calc Pharmacy 60.1 ml/min; Est GFR (African American) 85.5 ml/min; Est GFR (Non-African American) 73.8 ml/min; Magnesium 2.3 mg/dl (1.8-2.4)
[2021-01-07] MEDS: CALCIUM CARBONATE 1250MG TAB PO SCH (09:52)
[2021-01-07] MEDS: LOSARTAN POTASSIUM 50 MG TAB PO SCH (09:52)
[2021-01-07] MEDS: QUEtiapine FUMARATE 25 MG TABLET PO SCH ×3 (09:52→20:47)
[2021-01-07] MEDS: SENNA 8.6 MG TAB PO SCH (09:52)
[2021-01-07] MEDS: METOPROLOL TARTRATE 25 MG TAB PO SCH ×2 (09:52→20:47)
[2021-01-07] MEDS: APIXABAN 5 MG TABLET PO SCH ×2 (09:53→20:48)
[2021-01-07] MEDS: ASPIRIN 81 MG ECTAB PO SCH (10:06)
[2021-01-07] MEDS: PANTOprazole 40 MG TAB PO SCH (10:06)
[2021-01-07] MEDS: CHOLECALCIFEROL 1,000 UNITS 25 MCG TAB PO SCH (10:06)
[2021-01-07] MEDS ORDERED: INSULIN GLARGINE SOLOSTAR 100 UNITS/ML 3 ML PEN SC ONE ×3 (10:30→17:45)
[2021-01-07 11:49] LABS: Estimated Average Glucose 212 mg/dl
[2021-01-07] MEDS: INSULIN ASPART 100 UNITS/ML 3 ML PEN SC SCH ×3 (13:02→20:50)
[2021-01-07] MEDS: DEXTROSE 50% 50 ML SYRINGE IV PRN (13:06)
--- NOTE | 2021-01-07 13:20 | Electrocardiogram Report ---
Test Reason : Blood Pressure : / mmHG Vent. Rate : 076 BPM Atrial Rate : 076 BPM P-R Int : 152 ms QRS Dur : 090 ms QT Int : 412 ms P-R-T Axes : 065 059 040 degrees QTc Int : 463 ms Normal sinus rhythm Normal ECG When compared with ECG of 17-NOV-2020 17:01, No significant change was found Confirmed by Jeff Gonzales ([id number]) on 01/07/2021 1:20:03 PM Referred By: [facility] Confirmed By:Jeff Gonzales
--- NOTE | 2021-01-07 14:32 | Pharmacy Report ---
Pharmacy Glycemic Short Note 2 - Date of Service January 07, 2021 - Glycemic Short BSG Results (Last 24 hours): 01/06/21 01/06/21 01/07/21 22:35 22:50 02:34 Glucose 132 H POC Glucose 132 H 122 H 01/07/21 01/07/21 01/07/21 08:04 08:32 11:56 Glucose 72 POC Glucose 88 64 L* 01/07/21 01/07/21 11:57 13:41 Glucose POC Glucose 62 L* 111 H OUTPATIENT ANTIDIABETIC REGIMEN: * Basaglar 25 units QAM * Novolog 7 units w/ breakfast, 5 units w/ lunch, 7 units w/ dinner * HbA1c = 9% on 01/07/21 ASSESSMENT: * 70 y/o admitted for hypoglycemia. Patient is a Type 1 diabetic managed at home on Basaglar and Novolog insulins. * Fasting BSG today was 88 mg/dl. * Attempted to talk to patient about when he took his Basaglar dose yesterday. He did not seem to know or remember. He also was not interested in eating his breakfast. Nurse said later that he did not eat at all. * Pre-lunch BSG was only 62 mg/dl. For this reason, basal insulin was held off this AM and afternoon. * Ordered lower dose of Lantus (based on wt and stress of 1) with dinner today. Expecting BSGs will be trending up since pt is a Type 1 diabetic. * Novolog parameters based on wt and stress of 2. * So far this admission, pt has not required any insulin and BSGs have been low. PLAN FOR INPATIENT GLYCEMIC CONTROL: * Basal insulin * Lantus 7 units SQ x 1 with dinner. * Bolus insulin * NovoLog per scale ACHS or Q6hrs while NPO * Goal Range: Low 110 mg/dL - High 140 mg/dL * Correction Factor: 30 mg/dL/unit * Nutritional / Prandial insulin per carb ratio of 1 unit per 11 grams CHO consumed PLAN FOR DISCHARGE: * TBD
[2021-01-07] MEDS ORDERED: ONDANSETRON INJ 2 MG/ML 2 ML VIAL IV STA (19:19)
[2021-01-07] MEDS: SERTRALINE HCL 50 MG TABLET PO SCH (20:48)
[2021-01-07] MEDS: ATORVASTATIN 10 MG TAB PO SCH (20:48)
[2021-01-07] MEDS ORDERED: SERTRALINE HCL 50 MG TABLET PO SCH (21:00)
[2021-01-08] MEDS: INSULIN ASPART 100 UNITS/ML 3 ML PEN SC SCH ×6 (00:36→21:00)
[2021-01-08] MEDS: PANTOprazole 40 MG TAB PO SCH (07:56)
[2021-01-08] MEDS: SENNA 8.6 MG TAB PO SCH (07:56)
[2021-01-08] MEDS: LOSARTAN POTASSIUM 50 MG TAB PO SCH (07:56)
[2021-01-08] MEDS: CHOLECALCIFEROL 1,000 UNITS 25 MCG TAB PO SCH (07:56)
[2021-01-08] MEDS: CALCIUM CARBONATE 1250MG TAB PO SCH (07:56)
[2021-01-08] MEDS: ASPIRIN 81 MG ECTAB PO SCH (07:56)
[2021-01-08] MEDS: APIXABAN 5 MG TABLET PO SCH ×2 (07:57→20:36)
[2021-01-08] MEDS: QUEtiapine FUMARATE 25 MG TABLET PO SCH ×3 (07:57→20:35)
[2021-01-08] MEDS: METOPROLOL TARTRATE 25 MG TAB PO SCH ×2 (07:57→20:35)
[2021-01-08 08:12] LABS: Hematocrit (blood only) 33.6 % (42-52); Hemoglobin 11.2 g/dL (14.0-18.0); Mean Corpuscular Hgb Conc 33.3 g/dL (32-36); Mean Corpuscular Volume 90.1 fL (80-100); Mean Platelet Volume 9.6 fL (7.4-10.4); Platelet Count 269 K/uL (130-400); RDW Coefficient of Variation 14.4 % (11.5-14.5); RDW Standard Deviation 47.5 fL (36.4-46.3); Red Blood Count 3.73 M/uL (4.7-6.1); White Blood Count 5.85 K/uL (4.8-10.8)
[2021-01-08 08:29] LABS: BUN Creatinine Ratio 16.9 (10-20); Creatinine Clr Calc Pharmacy 63.4 ml/min; Est GFR (African American) 91.9 ml/min; Est GFR (Non-African American) 79.3 ml/min; Magnesium 2.4 mg/dl (1.8-2.4); Phosphorus 2.9 mg/dl (2.5-4.9); Potassium 4.4 mmol/L (3.5-5.1)
--- NOTE | 2021-01-08 10:39 | Pharmacy Report ---
Pharmacy Glycemic Short Note 2 - Date of Service January 08, 2021 - Glycemic Short BSG Results (Last 24 hours): 01/07/21 01/07/21 01/07/21 11:56 11:57 13:41 Glucose POC Glucose 64 L* 62 L* 111 H 01/07/21 01/07/21 01/07/21 16:45 20:45 23:58 Glucose POC Glucose 104 H 155 H 185 H 01/08/21 01/08/21 01/08/21 04:05 07:55 08:06 Glucose 97 POC Glucose 122 H 101 H OUTPATIENT ANTIDIABETIC REGIMEN: * Basaglar 25 units QAM * Novolog 7 units w/ breakfast, 5 units w/ lunch, 7 units w/ dinner * HbA1c = 9% on 01/07/21 ASSESSMENT: 01/08 * Patient received total of 15 units of insulin yesterday, of which all 15 units were basal insulin * Fasting BSG 101 mg/dL - patient with no PO intake yesterday. Refused correctional insulin overnight * Will follow to see if patient eating today. Likely will need Lantus titrated 01/07 * 70 y/o admitted for hypoglycemia. Patient is a Type 1 diabetic managed at home on Basaglar and Novolog insulins. * Fasting BSG today was 88 mg/dl. * Attempted to talk to patient about when he took his Basaglar dose yesterday. He did not seem to know or remember. He also was not interested in eating his breakfast. Nurse said later that he did not eat at all. * Pre-lunch BSG was only 62 mg/dl. For this reason, basal insulin was held off this AM and afternoon. * Ordered lower dose of Lantus (based on wt and stress of 1) with dinner today. Expecting BSGs will be trending up since pt is a Type 1 diabetic. * Novolog parameters based on wt and stress of 2. * So far this admission, pt has not required any insulin and BSGs have been low. PLAN FOR INPATIENT GLYCEMIC CONTROL: * Basal insulin * Lantus 15-18 units daily with dinner * Bolus insulin * NovoLog per scale ACHS or Q6hrs while NPO * Goal Range: Low 110 mg/dL - High 140 mg/dL * Correction Factor: 30 mg/dL/unit * Nutritional / Prandial insulin per carb ratio of 1 unit per 11 grams CHO consumed PLAN FOR DISCHARGE: * TBD - BSG per EMS on arrival in 40s, outpatient regimen likely will need some adjustments on discharge * Will continue to follow to determine insulin needs
[2021-01-08] MEDS: SODIUM CHLORIDE 0.9% 1000ML 1,000 ML IV SCH (11:00)
--- NOTE | 2021-01-08 12:45 | Hospitalist Progress Note ---
Date of Service January 08, 2021 Assessment & Plan (1) AMS (altered mental status): (2) Hypoglycemia: This is a 70-year-old male who presents with encephalopathy most likely secondary to hypoglycemia. 1. Metabolic encephalopathy, secondary to hypoglycemia: On admission, the patient is afebrile, hemodynamically stable. No leukocytosis. Urinalysis negative. Chest x-ray unremarkable. CT of the head unremarkable. EKG w/o any isch. changes. No obvious source of any infection. Pt's sugars improved with dextrose. There is a question of his not being back to baseline as per the ER physician talking to the [facility], but as per admitting provider's conversation with the sister, his baseline mental status is confused, does not make much sense. [facility], but was not able to reach them. Meanwhile, we will keep in the hospital and observe and monitor his sugars. Monitor hemodynamics. If any concerns, will get an MRI scan of the head and neuro consult.Will try to call [facility] in the a.m. Soft bite diet and speech evaluation in am. I contacted Randa arceo, and I was told that the patient's blood glucose was over 450 before dinner, patient did not eat much for dinner and received insulin, then at 8:15 pm they heard him moaning and his blood sugar was 39. He received glucose and he was unfortunately spitting it out, then he received more glucose and his blood sugar then recovered. Patient often difficult to comply with medications, refusing medications, per Randa arceo often patient refuses night meds. Per [place] [facility] provider, reportedly patient seems to be more depressed lately. Currently patient is still afebrile, he is awake and alert, he is able to answer some questions appropriately, he is now independently eating lunch in his room. No signs of infection noted. 2. Diabetes: Came with hypoglycemic episode. The patient has history of diabetic ketoacidosis in the past. We will hold his home insulin regimen. We will place him on insulin sliding scale. Current HbA1c 9.0% We will consult pharmacy for glycemia management. 3. History of atrial fibrillation: Continue his metoprolol and Eliquis. 4. History of hypertension: Continue his losartan, metoprolol. We will monitor his blood pressure. 5. History of hyperlipidemia: Continue statin. 6. History of stroke: On aspirin and statin. 7. History of depression: Continue his Zoloft and Seroquel. 8. Cognitive disorder: Monitor for any delirium. DVT prophylaxis: On Eliquis. DISPOSITION: Monitor in the med tele. PT/OT prior to discharge. Social service to help with discharge planning. Plan to discharge back to [facility]. Code Status, sister states he is a DNR, but last admission he was a full code. Need to clarify with [facility] - awaiting a phone call back. Admission and Anticipated Discharge Date Admission Date: January 07, 2021 Subjective Patient seen in follow-up of encephalopathy, hypoglycemia Currently he is sitting up in the bed, in no acute distress, eating lunch He is awake and alert and able to answer most questions appropriately He denies any complaints, denies any pain, specifically denies any chest pain or shortness of breath He cannot tell me how he ended up in the hospital Review of Systems Review of Systems: All systems reviewed & are unremarkable except as noted in HPI & below Constitutional: no fever and no chills Respiratory: no cough and no dyspnea Cardiovascular: no chest pain and no palpitations Gastrointestinal: no abdominal pain, no nausea and no vomiting Physical Exam Physical Exam: GENERAL: The patient is alert and awake in NAD HEENT: NC, Pupils equal, round and reactive to light. Oral mucosa moist. NECK: No JVD, no neck masses. CARDIOVASCULAR: S1 and S2 heard. Regular rate and rhythm. No murmur, no gallop. RESPIRATORY: Normal AP diameter. No accessory muscle use. No wheezing, no crackles. ABDOMEN: Soft, bowel sounds present, nontender, no distention. NEURO: Alert and awake, able to answer most questions appropriately. Speech slow but fluent (at baseline). Moves extremities. EXTREMITIES: Status post left below-knee amputation. No edema, no erythema seen. Results & Data Results & Data ([facility]) Vital Signs (Past 12 Hours) Vital Signs Temp Pulse Pulse Resp BP BP Pulse Ox 01/08/21 11:53 36.7 C 71 20 150/65 H 97 01/08/21 08:00 64 01/08/21 07:00 36.7 C 65 19 168/54 H 97 01/08/21 02:21 36.9 C 64 20 149/63 H 95 01/08/21 01:05 74 Laboratory Results 01/08/21 01/08/21 01/08/21 Range/Units 11:42 08:06 07:55 WBC (4.8-10.8) K/uL RBC (4.7-6.1) M/uL Hgb (14.0-18.0) g/dL Hct (42-52) % MCV (80-100) fL MCH (25-34) pg MCHC (32-36) g/dL RDW Std Deviation (36.4-46.3) fL RDW Coeff of Jace (11.5-14.5) % Plt Count (130-400) K/uL MPV (7.4-10.4) fL Sodium 141 (136-145) mmol/L Potassium 4.4 (3.5-5.1) mmol/L Chloride 109 H (98-107) mmol/L Carbon Dioxide 29 (21-32) mmol/L Anion Gap 3.0 (3-11) BUN 17 (7-18) mg/dl Creatinine 0.97 (0.6-1.4) mg/dl Est Cr Clr Drug Dosing 63.4 ml/min Est GFR ( Amer) 91.9 ml/min Est GFR (Non-Af Amer) 79.3 ml/min BUN/Creatinine Ratio 16.9 (10-20) Glucose 97 (70-99) mg/dl POC Glucose 149 H 101 H (70-99) mg/dl Calcium 9.0 (8.5-10.1) mg/dl Phosphorus 2.9 (2.5-4.9) mg/dl Magnesium 2.4 (1.8-2.4) mg/dl 01/08/21 01/08/21 01/07/21 Range/Units 07:55 04:05 23:58 WBC 5.85 (4.8-10.8) K/uL RBC 3.73 L (4.7-6.1) M/uL Hgb 11.2 L (14.0-18.0) g/dL Hct 33.6 L (42-52) % MCV 90.1 (80-100) fL MCH 30.0 (25-34) pg MCHC 33.3 (32-36) g/dL RDW Std Deviation 47.5 H (36.4-46.3) fL RDW Coeff of Jace 14.4 (11.5-14.5) % Plt Count 269 (130-400) K/uL MPV 9.6 (7.4-10.4) fL Sodium (136-145) mmol/L Potassium (3.5-5.1) mmol/L Chloride (98-107) mmol/L Carbon Dioxide (21-32) mmol/L Anion Gap (3-11) BUN (7-18) mg/dl Creatinine (0.6-1.4) mg/dl Est Cr Clr Drug Dosing ml/min Est GFR ( Amer) ml/min Est GFR (Non-Af Amer) ml/min BUN/Creatinine Ratio (10-20) Glucose (70-99) mg/dl POC Glucose 122 H 185 H (70-99) mg/dl Calcium (8.5-10.1) mg/dl Phosphorus (2.5-4.9) mg/dl Magnesium (1.8-2.4) mg/dl 01/07/21 01/07/21 01/07/21 Range/Units 20:45 16:45 13:41 WBC (4.8-10.8) K/uL RBC (4.7-6.1) M/uL Hgb (14.0-18.0) g/dL Hct (42-52) % MCV (80-100) fL MCH (25-34) pg MCHC (32-36) g/dL RDW Std Deviation (36.4-46.3) fL RDW Coeff of Jace (11.5-14.5) % Plt Count (130-400) K/uL MPV (7.4-10.4) fL Sodium (136-145) mmol/L Potassium (3.5-5.1) mmol/L Chloride (98-107) mmol/L Carbon Dioxide (21-32) mmol/L Anion Gap (3-11) BUN (7-18) mg/dl Creatinine (0.6-1.4) mg/dl Est Cr Clr Drug Dosing ml/min Est GFR ( Amer) ml/min Est GFR (Non-Af Amer) ml/min BUN/Creatinine Ratio (10-20) Glucose (70-99) mg/dl POC Glucose 155 H 104 H 111 H (70-99) mg/dl Calcium (8.5-10.1) mg/dl Phosphorus (2.5-4.9) mg/dl Magnesium (1.8-2.4) mg/dl Medications Administered Current Inpatient Medications Acetaminophen (Acetaminophen 325 Mg Tab) 650 mg PO Q4H PRN PRN Reason: Pain or Fever Stop: 02/06/21 08:20 Apixaban (Apixaban 5 Mg Tablet) 5 mg PO BID [facility] Stop: 02/06/21 08:59 Last Admin: 01/08/21 07:57 Dose: 5 mg Documented by: Aspirin (Aspirin 81 Mg Ectab) 81 mg PO QAM [facility] Stop: 02/06/21 08:59 Last Admin: 01/08/21 07:56 Dose: 81 mg Documented by: Atorvastatin Calcium (Atorvastatin 10 Mg Tab) 10 mg PO HS [facility] Stop: 02/06/21 20:59 Last Admin: 01/07/21 20:48 Dose: 10 mg Documented by: Calcium Carbonate (Calcium Carbonate 1250mg Tab) 1,250 mg PO [facility] Stop: 02/06/21 08:59 Last Admin: 01/08/21 07:56 Dose: 1,250 mg Documented by: Dextrose (Dextrose 50% 50 Ml Syringe) 25 - 50 ml IV UD PRN; Protocol PRN Reason: Hypoglycemia Protocol Stop: 02/06/21 09:29 Last Admin: 01/07/21 13:06 Dose: 25 ml Documented by: Glucagon (Glucagon For Inj 1 Mg Vial) 1 mg IM UD PRN; Protocol PRN Reason: Hypoglycemia Protocol Stop: 02/06/21 09:29 Glucose (Glucose 40% Gel 15 Gm Tube) 15 - 30 gm PO UD PRN; Protocol PRN Reason: Hypoglycemia Protocol Stop: 02/06/21 09:29 Glucose (Glucose 10 Tabs/Tube) 4 - 8 tabs PO UD PRN; Protocol PRN Reason: Hypoglycemia Protocol Stop: 02/06/21 09:29 Sodium Chloride (Nss 1000ml) 1,000 mls @ 80 mls/hr IV .[id number] [facility] Stop: 02/06/21 08:20 Last Infusion: 01/08/21 11:00 Dose: Infused Documented by: Insulin Aspart (Insulin Aspart 100 Units/Ml 3 Ml Pen) 0 units SC ACHS [facility] Stop: 02/06/21 11:29 Last Admin: 01/08/21 08:58 Dose: Not Given Documented by: Insulin Glargine (Insulin Glargine Solostar 100 Units/Ml 3 Ml Pen) 0 units SC DAILY@1800 AYDEN; Protocol Stop: 02/07/21 17:59 Losartan Potassium (Losartan Potassium 50 Mg Tab) 50 mg PO QAM [facility] Stop: 02/06/21 08:59 Last Admin: 01/08/21 07:56 Dose: 50 mg Documented by: Metoprolol Tartrate (Metoprolol Tartrate 25 Mg Tab) 25 mg PO BID [facility] Stop: 02/06/21 08:59 Last Admin: 01/08/21 07:57 Dose: 25 mg Documented by: Miscellaneous (Carbohydrates For Hypoglycemia ) 15 - 30 gm PO UD PRN PRN Reason: Hypoglycemia Treatment Stop: 02/06/21 09:29 Miscellaneous Information (Pharmacy Glycemic Mgmt Consult) 1 ea N/A UD PRN PRN Reason: Consult Stop: 02/06/21 09:25 Nitroglycerin (Nitroglycerin Sl 0.4 Mg/Tab Tab) 0.4 mg SL UD PRN PRN Reason: Chest Pain Stop: 02/06/21 08:20 Pantoprazole Sodium ([facility] 40 Mg Tab) [facility]: 02/06/21 08:59 Last Admin: 01/08/21 07:56 Dose: 40 mg Documented by: Polyethylene Glycol (Polyethylene (Miralax) 17 Gm Pack) 17 gm PO DAILY PRN PRN Reason: Constipation Stop: 02/06/21 08:20 Quetiapine Fumarate (Quetiapine Fumarate 25 Mg Tablet) 25 mg PO TID [facility] Stop: 02/06/21 08:59 Last Admin: 01/08/21 07:57 Dose: 25 mg Documented by: Sennosides (Senna 8.6 Mg Tab) [facility] Stop: 02/06/21 08:59 Last Admin: 01/08/21 07:56 Dose: 8.6 mg Documented by: Sertraline HCl (Sertraline Hcl 50 Mg Tablet) 75 mg PO QPM [facility] Stop: 02/06/21 20:59 Last Admin: 01/07/21 20:48 Dose: 75 mg Documented by: Vitamin D (Cholecalciferol 1,000 Units 25 Mcg Tab) 1,[facility] Stop: 02/06/21 08:59 Last Admin: 01/08/21 07:56 Dose: 1,000 units Documented by: (1) AMS (altered mental status) Altered mental status type: unspecified Qualified Code(s): R41.82 - Altered mental status, unspecified
[2021-01-08] MEDS: INSULIN GLARGINE SOLOSTAR 100 UNITS/ML 3 ML PEN SC SCH (17:09)
[2021-01-08] MEDS: ATORVASTATIN 10 MG TAB PO SCH (20:36)
[2021-01-08] MEDS: SERTRALINE HCL 50 MG TABLET PO SCH (20:37)
[2021-01-09 06:53] LABS: BUN Creatinine Ratio 18.7 (10-20); Calcium 9.3 mg/dl (8.5-10.1); Creatinine Clr Calc Pharmacy 66.3 ml/min; Est GFR (African American) 96.7 ml/min; Est GFR (Non-African American) 83.5 ml/min
[2021-01-09] MEDS: DEXTROSE 50% 50 ML SYRINGE IV PRN (07:18)
--- NOTE | 2021-01-09 07:38 | Hospitalist Progress Note ---
Date of Service January 09, 2021 Assessment & Plan (1) AMS (altered mental status): (2) Hypoglycemia: This is a 70-year-old male who presents with encephalopathy most likely secondary to hypoglycemia. 1. Metabolic encephalopathy, secondary to hypoglycemia: On admission, the patient is afebrile, hemodynamically stable. No leukocytosis. Urinalysis negative. Chest x-ray unremarkable. CT of the head unremarkable. EKG w/o any isch. changes. No obvious source of any infection. Pt's sugars improved with dextrose. There is a question of his not being back to baseline as per the ER physician talking to the [facility], but as per admitting provider's conversation with the sister, his baseline mental status is confused, does not make much sense. [facility] to [facility], but was not able to reach them. Meanwhile, we will keep in the hospital and observe and monitor his sugars. Monitor hemodynamics. If any concerns, will get an MRI scan of the head and neuro consult.[facility] Soft bite diet and speech evaluation in am. I contacted [facility] arce[facility], and I was told that the patient's blood glucose was over 450 before dinner, patient did not eat much for dinner and received insulin, then at 8:15 pm they heard him moaning and his blood sugar was 39. He received glucose and he was unfortunately spitting it out, then he received more glucose and his blood sugar then recovered. Patient often difficult to comply with medications, refusing medications, per Randa arceo often patient refuses night meds. Per [place] [facility] provider, reportedly patient seems to be more depressed lately. Currently patient is still afebrile, he is awake and alert, he is able to answer some questions appropriately, he is now independently eating lunch in his room. No signs of infection noted. 01/09 -patient had hypoglycemic episode again this morning. Will need to further discuss with glycemic pharmacy, [facility] staff, how to adjust insulin the most appropriately to patient's needs so hypoglycemic episodes would be avoided. 2. Diabetes: Came with hypoglycemic episode. The patient has history of diabetic ketoacidosis in the past. We will hold his home insulin regimen. We will place him on insulin sliding scale. Current HbA1c 9.0% We will consult pharmacy for glycemia management. 3. History of atrial fibrillation: Continue his metoprolol and Eliquis. 4. History of hypertension: Continue his losartan, metoprolol. We will monitor his blood pressure. 5. History of hyperlipidemia: Continue statin. 6. History of stroke: On aspirin and statin. 7. History of depression: Continue his Zoloft and Seroquel. 8. Cognitive disorder: Monitor for any delirium. DVT prophylaxis: On Eliquis. DISPOSITION: Monitor in the med tele. PT/OT prior to discharge. Social service to help with discharge planning. Plan to discharge back to [facility]. Code Status, sister states he is a DNR, but last admission he was a full code. Need to clarify with [facility] [place] - awaiting a phone call back. Admission and Anticipated Discharge Date Admission Date: January 07, 2021 Subjective Patient seen in follow-up of encephalopathy, hypoglycemia Currently he is sitting up in the bed, in no acute distress, eating lunch He is awake and alert and able to answer most questions appropriately He denies any complaints, denies any pain, specifically denies any chest pain or shortness of breath Patient hypoglycemic again this morning. Discussed with patient's nurse, glycemic pharmacist, will further discuss with [facility]ce[facility] as well to try to adjust insulin as good as possible to patient's needs so he does not experience hypoglycemic episodes. Review of Systems Review of Systems: All systems reviewed & are unremarkable except as noted in HPI & below Constitutional: no fever and no chills Respiratory: no cough and no dyspnea Cardiovascular: no chest pain and no palpitations Gastrointestinal: no abdominal pain, no nausea and no vomiting Physical Exam Physical Exam: GENERAL: The patient is alert and awake in NAD HEENT: NC, Pupils equal, round and reactive to light. Oral mucosa moist. NECK: No JVD, no neck masses. CARDIOVASCULAR: S1 and S2 heard. Regular rate and rhythm. No murmur, no gallop. RESPIRATORY: Normal AP diameter. No accessory muscle use. No wheezing, no crackles. ABDOMEN: Soft, bowel sounds present, nontender, no distention. NEURO: Alert and awake, able to answer most questions appropriately. Speech slow but fluent (at baseline). Moves extremities. EXTREMITIES: Status post left below-knee amputation. No edema, no erythema seen. Results & Data Results & Data ([facility]) Vital Signs (Past 12 Hours) Vital Signs Temp Pulse Pulse Resp BP Pulse Ox 01/09/21 02:51 36.4 C L 62 20 101/63 98 01/08/21 23:58 72 01/08/21 23:19 36.4 C L 67 18 109/56 L 95 Laboratory Results 01/09/21 01/09/21 01/09/21 Range/Units 07:34 07:19 07:11 WBC (4.8-10.8) K/uL RBC (4.7-6.1) M/uL Hgb (14.0-18.0) g/dL Hct (42-52) % MCV (80-100) fL MCH (25-34) pg MCHC (32-36) g/dL RDW Std Deviation (36.4-46.3) fL RDW Coeff of Jace (11.5-14.5) % Plt Count (130-400) K/uL MPV (7.4-10.4) fL Sodium (136-145) mmol/L Potassium (3.5-5.1) mmol/L Chloride (98-107) mmol/L Carbon Dioxide (21-32) mmol/L Anion Gap (3-11) BUN (7-18) mg/dl Creatinine (0.6-1.4) mg/dl Est Cr Clr Drug Dosing ml/min Est GFR ( Amer) ml/min Est GFR (Non-Af Amer) ml/min BUN/Creatinine Ratio (10-20) Glucose (70-99) mg/dl POC Glucose 186 H 62 L* 45 L* (70-99) mg/dl Calcium (8.5-10.1) mg/dl Phosphorus (2.5-4.9) mg/dl Magnesium (1.8-2.4) mg/dl 01/09/21 01/09/21 01/09/21 Range/Units 06:58 06:56 05:57 WBC (4.8-10.8) K/uL RBC (4.7-6.1) M/uL Hgb (14.0-18.0) g/dL Hct (42-52) % MCV (80-100) fL MCH (25-34) pg MCHC (32-36) g/dL RDW Std Deviation (36.4-46.3) fL RDW Coeff of Jace (11.5-14.5) % Plt Count (130-400) K/uL MPV (7.4-10.4) fL Sodium 140 (136-145) mmol/L Potassium 4.0 (3.5-5.1) mmol/L Chloride 108 H (98-107) mmol/L Carbon Dioxide 29 (21-32) mmol/L Anion Gap 4.0 (3-11) BUN 17 (7-18) mg/dl Creatinine 0.93 (0.6-1.4) mg/dl Est Cr Clr Drug Dosing 66.3 ml/min Est GFR ( Amer) 96.7 ml/min Est GFR (Non-Af Amer) 83.5 ml/min BUN/Creatinine Ratio 18.7 (10-20) Glucose 45 L* (70-99) mg/dl POC Glucose 42 L* 48 L* (70-99) mg/dl Calcium 9.3 (8.5-10.1) mg/dl Phosphorus (2.5-4.9) mg/dl Magnesium (1.8-2.4) mg/dl 01/08/21 01/08/21 01/08/21 Range/Units 20:17 16:34 11:42 WBC (4.8-10.8) K/uL RBC (4.7-6.1) M/uL Hgb (14.0-18.0) g/dL Hct (42-52) % MCV (80-100) fL MCH (25-34) pg MCHC (32-36) g/dL RDW Std Deviation (36.4-46.3) fL RDW Coeff of Jace (11.5-14.5) % Plt Count (130-400) K/uL MPV (7.4-10.4) fL Sodium (136-145) mmol/L Potassium (3.5-5.1) mmol/L Chloride (98-107) mmol/L Carbon Dioxide (21-32) mmol/L Anion Gap (3-11) BUN (7-18) mg/dl Creatinine (0.6-1.4) mg/dl Est Cr Clr Drug Dosing ml/min Est GFR ( Amer) ml/min Est GFR (Non-Af Amer) ml/min BUN/Creatinine Ratio (10-20) Glucose (70-99) mg/dl POC Glucose 116 H 173 H 149 H (70-99) mg/dl Calcium (8.5-10.1) mg/dl Phosphorus (2.5-4.9) mg/dl Magnesium (1.8-2.4) mg/dl 01/08/21 01/08/21 01/08/21 Range/Units 08:06 07:55 07:55 WBC 5.85 (4.8-10.8) K/uL RBC 3.73 L (4.7-6.1) M/uL Hgb 11.2 L (14.0-18.0) g/dL Hct 33.6 L (42-52) % MCV 90.1 (80-100) fL MCH 30.0 (25-34) pg MCHC 33.3 (32-36) g/dL RDW Std Deviation 47.5 H (36.4-46.3) fL RDW Coeff of Jace 14.4 (11.5-14.5) % Plt Count 269 (130-400) K/uL MPV 9.6 (7.4-10.4) fL Sodium 141 (136-145) mmol/L Potassium 4.4 (3.5-5.1) mmol/L Chloride 109 H (98-107) mmol/L Carbon Dioxide 29 (21-32) mmol/L Anion Gap 3.0 (3-11) BUN 17 (7-18) mg/dl Creatinine 0.97 (0.6-1.4) mg/dl Est Cr Clr Drug Dosing 63.4 ml/min Est GFR ( Amer) 91.9 ml/min Est GFR (Non-Af Amer) 79.3 ml/min BUN/Creatinine Ratio 16.9 (10-20) Glucose 97 (70-99) mg/dl POC Glucose 101 H (70-99) mg/dl Calcium 9.0 (8.5-10.1) mg/dl Phosphorus 2.9 (2.5-4.9) mg/dl Magnesium 2.4 (1.8-2.4) mg/dl Medications Administered Current Inpatient Medications Acetaminophen (Acetaminophen 325 Mg Tab) 650 mg PO Q4H PRN PRN Reason: Pain or Fever Stop: 02/06/21 08:20 Apixaban (Apixaban 5 Mg Tablet) 5 mg PO BID [facility] Stop: 02/06/21 08:59 Last Admin: 01/08/21 20:36 Dose: 5 mg Documented by: Aspirin (Aspirin 81 Mg Ectab) [facility] Stop: 02/06/21 08:59 Last Admin: 01/08/21 07:56 Dose: 81 mg Documented by: Atorvastatin Calcium (Atorvastatin 10 Mg Tab) 10 mg PO [facility] Stop: 02/06/21 20:59 Last Admin: 01/08/21 20:36 Dose: 10 mg Documented by: Calcium Carbonate (Calcium Carbonate 1250mg Tab) 1,250 mg PO [facility] Stop: 02/06/21 08:59 Last Admin: 01/08/21 07:56 Dose: 1,250 mg Documented by: Dextrose (Dextrose 50% 50 Ml Syringe) 25 - 50 ml IV UD PRN; Protocol PRN Reason: Hypoglycemia Protocol Stop: 02/06/21 09:29 Last Admin: 01/09/21 07:18 Dose: 50 ml Documented by: Glucagon (Glucagon For Inj 1 Mg Vial) 1 mg IM UD PRN; Protocol PRN Reason: Hypoglycemia Protocol Stop: 02/06/21 09:29 Glucose (Glucose 40% Gel 15 Gm Tube) 15 - 30 gm PO UD PRN; Protocol PRN Reason: Hypoglycemia Protocol Stop: 02/06/21 09:29 Glucose (Glucose 10 Tabs/Tube) 4 - 8 tabs PO UD PRN; Protocol PRN Reason: Hypoglycemia Protocol Stop: 02/06/21 09:29 Insulin Aspart (Insulin Aspart 100 Units/Ml 3 Ml Pen) [address] [facility] Stop: 02/06/21 11:29 Last Admin: 01/08/21 21:00 Dose: Not Given Documented by: Insulin Glargine (Insulin Glargine Solostar 100 Units/Ml 3 Ml Pen) 0 units SC DAILY@1800 AYDEN; Protocol Stop: 02/07/21 17:59 Last Admin: 01/08/21 17:09 Dose: 15 units Documented by: Losartan Potassium (Losartan Potassium 50 Mg Tab) 50 mg PO [facility] Stop: 02/06/21 08:59 Last Admin: 01/08/21 07:56 Dose: 50 mg Documented by: Metoprolol Tartrate (Metoprolol Tartrate 25 Mg Tab) 25 mg PO BID [facility] Stop: 02/06/21 08:59 Last Admin: 01/08/21 20:35 Dose: 25 mg Documented by: Miscellaneous (Carbohydrates For Hypoglycemia ) 15 - 30 gm PO UD PRN PRN Reason: Hypoglycemia Treatment Stop: 02/06/21 09:29 Last Admin: 01/09/21 06:59 Dose: 30 gm Documented by: Miscellaneous Information (Pharmacy Glycemic Mgmt Consult) 1 ea N/A UD PRN PRN Reason: Consult Stop: 02/06/21 09:25 Nitroglycerin (Nitroglycerin Sl 0.4 Mg/Tab Tab) 0.4 mg SL UD PRN PRN Reason: Chest Pain Stop: 02/06/21 08:20 Pantoprazole Sodium (Pantoprazole 40 Mg Tab) [facility] [place] Stop: 02/06/21 08:59 Last Admin: 01/08/21 07:56 Dose: 40 mg Documented by: Polyethylene Glycol (Polyethylene (Miralax) 17 Gm Pack) 17 gm PO DAILY PRN PRN Reason: Constipation Stop: 02/06/21 08:20 Quetiapine Fumarate (Quetiapine Fumarate 25 Mg Tablet) 25 mg PO TID [facility] Stop: 02/06/21 08:59 Last Admin: 01/08/21 20:35 Dose: 25 mg Documented by: Sennosides (Senna 8.6 Mg Tab) 8.6 mg PO QAM [facility] Stop: 02/06/21 08:59 Last Admin: 01/08/21 07:56 Dose: 8.6 mg Documented by: Sertraline HCl (Sertraline Hcl 50 Mg Tablet) 75 mg PO QPM [facility] Stop: 02/06/21 20:59 Last Admin: 01/08/21 20:37 Dose: 75 mg Documented by: Vitamin D (Cholecalciferol 1,000 Units 25 Mcg Tab) 1,000 units PO QAM [facility] Stop: 02/06/21 08:59 Last Admin: 01/08/21 07:56 Dose: 1,000 units Documented by: (1) AMS (altered mental status) Altered mental status type: unspecified Qualified Code(s): R41.82 - Altered mental status, unspecified
[2021-01-09] MEDS: CHOLECALCIFEROL 1,000 UNITS 25 MCG TAB PO SCH (08:37)
[2021-01-09] MEDS: ASPIRIN 81 MG ECTAB PO SCH (08:37)
[2021-01-09] MEDS: LOSARTAN POTASSIUM 50 MG TAB PO SCH (08:37)
[2021-01-09] MEDS: PANTOprazole 40 MG TAB PO SCH (08:38)
[2021-01-09] MEDS: QUEtiapine FUMARATE 25 MG TABLET PO SCH ×3 (08:38→22:33)
[2021-01-09] MEDS: CALCIUM CARBONATE 1250MG TAB PO SCH (08:38)
[2021-01-09] MEDS: APIXABAN 5 MG TABLET PO SCH ×2 (08:38→22:34)
[2021-01-09] MEDS: METOPROLOL TARTRATE 25 MG TAB PO SCH ×2 (08:38→22:34)
[2021-01-09] MEDS: SENNA 8.6 MG TAB PO SCH (08:38)
[2021-01-09] MEDS: INSULIN ASPART 100 UNITS/ML 3 ML PEN SC SCH ×4 (08:39→22:33)
--- NOTE | 2021-01-09 09:56 | Pharmacy Report ---
Pharmacy Glycemic Short Note 2 - Date of Service January 09, 2021 - Glycemic Short BSG Results (Last 24 hours): 01/08/21 01/08/21 01/08/21 11:42 16:34 20:17 Glucose POC Glucose 149 H 173 H 116 H 01/09/21 01/09/21 01/09/21 05:57 06:56 06:58 Glucose 45 L* POC Glucose 48 L* 42 L* 01/09/21 01/09/21 01/09/21 07:11 07:19 07:34 Glucose POC Glucose 45 L* 62 L* 186 H OUTPATIENT ANTIDIABETIC REGIMEN: * Basaglar 25 units QAM * Novolog 7 units w/ breakfast, 5 units w/ lunch, 7 units w/ dinner * HbA1c = 9% on 01/07/21 ASSESSMENT: 01/09 * Patient received total of 20 units of insulin yesterday, of which 15 units were basal insulin * Fasting BSG low at 45 mg/dL - treated per hypoglycemia protocol. Recheck 186 mg/dL * Will scale back on Lantus for HS time. Patient is type 1 DM so will need to follow very closely since scaling back on insulin. PO intake has not been very good. Eliminated CR this AM. Plan to utilize just correctional insulin for now and basal. 01/08 * Patient received total of 15 units of insulin yesterday, of which all 15 units were basal insulin * Fasting BSG 101 mg/dL - patient with no PO intake yesterday. Refused correctional insulin overnight * Will follow to see if patient eating today. Likely will need Lantus titrated 01/07 * 70 y/o admitted for hypoglycemia. Patient is a Type 1 diabetic managed at home on Basaglar and Novolog insulins. * Fasting BSG today was 88 mg/dl. * Attempted to talk to patient about when he took his Basaglar dose yesterday. He did not seem to know or remember. He also was not interested in eating his breakfast. Nurse said later that he did not eat at all. * Pre-lunch BSG was only 62 mg/dl. For this reason, basal insulin was held off this AM and afternoon. * Ordered lower dose of Lantus (based on wt and stress of 1) with dinner today. Expecting BSGs will be trending up since pt is a Type 1 diabetic. * Novolog parameters based on wt and stress of 2. * So far this admission, pt has not required any insulin and BSGs have been low. PLAN FOR INPATIENT GLYCEMIC CONTROL: * Basal insulin * Lantus 8-10 units HS * Bolus insulin * NovoLog per scale ACHS or Q6hrs while NPO * Goal Range: Low 110 mg/dL - High 140 mg/dL * Correction Factor: 40 mg/dL/unit * Nutritional / Prandial insulin per carb ratio of 1 unit per -- grams CHO consumed PLAN FOR DISCHARGE: * TBD - BSG per EMS on arrival in 40s, outpatient regimen likely will need some adjustments on discharge * Will continue to follow to determine insulin needs
[2021-01-09] MEDS: INSULIN GLARGINE SOLOSTAR 100 UNITS/ML 3 ML PEN SC SCH (17:05)
[2021-01-09] MEDS ORDERED: INSULIN ASPART 100 UNITS/ML 3 ML PEN SC ONE (18:00)
[2021-01-09] MEDS: ATORVASTATIN 10 MG TAB PO SCH (22:34)
[2021-01-09] MEDS: SERTRALINE HCL 50 MG TABLET PO SCH (22:35)
[2021-01-10] MEDS ORDERED: INSULIN ASPART 100 UNITS/ML 3 ML PEN SC SCH
[2021-01-10] MEDS: INSULIN ASPART 100 UNITS/ML 3 ML PEN SC SCH ×7 (01:04→20:37)
[2021-01-10 07:39] LABS: BUN Creatinine Ratio 20.3 (10-20); Calcium 9.1 mg/dl (8.5-10.1); Creatinine Clr Calc Pharmacy 56.8 ml/min; Est GFR (African American) 80.7 ml/min; Est GFR (Non-African American) 69.7 ml/min; Potassium 4.2 mmol/L (3.5-5.1)
--- NOTE | 2021-01-10 07:58 | Hospitalist Progress Note ---
Date of Service January 10, 2021 Assessment & Plan (1) AMS (altered mental status): (2) Hypoglycemia: This is a 70-year-old male who presents with encephalopathy most likely secondary to hypoglycemia. 1. Metabolic encephalopathy, secondary to hypoglycemia: On admission, the patient is afebrile, hemodynamically stable. No leukocytosis. Urinalysis negative. Chest x-ray unremarkable. CT of the head unremarkable. EKG w/o any isch. changes. No obvious source of any infection. Pt's sugars improved with dextrose. There is a question of his not being back to baseline as per the ER physician talking to the [facility], but as per admitting provider's conversation with the sister, his baseline mental status is confused, does not make much sense. T[facility] to [facility], but was not able to reach them. Meanwhile, we will keep in the hospital and observe and monitor his sugars. Monitor hemodynamics. If any concerns, will get an MRI scan of the head and neuro consult.[facility] Soft bite diet and speech evaluation in am. I contacted Randa arceo, and I was told that the patient's blood glucose was over 450 before dinner, patient did not eat much for dinner and received insulin, then at 8:15 pm they heard him moaning and his blood sugar was 39. He received glucose and he was unfortunately spitting it out, then he received more glucose and his blood sugar then recovered. Patient often difficult to comply with medications, refusing medications, per Randa arceo often patient refuses night meds. Per [place] provider, reportedly patient seems to be more depressed lately. Currently patient is still afebrile, he is awake and alert, he is able to answer some questions appropriately, he is now independently eating lunch in his room. No signs of infection noted. 01/09 -patient had hypoglycemic episode again in the morning. Will need to further discuss with glycemic pharmacy, [facility], how to adjust insulin the most appropriately to patient's needs so hypoglycemic episodes would be avoided. 2. Diabetes: Came with hypoglycemic episode. The patient has history of diabetic ketoacidosis in the past. We will hold his home insulin regimen. We will place him on insulin sliding scale. Current HbA1c 9.0% We will consult pharmacy for glycemia management. 3. History of atrial fibrillation: Continue his metoprolol and Eliquis. 4. History of hypertension: Continue his losartan, metoprolol. We will monitor his blood pressure. 5. History of hyperlipidemia: Continue statin. 6. History of stroke: On aspirin and statin. 7. History of depression: Continue his Zoloft and Seroquel. 8. Cognitive disorder: Monitor for any delirium. DVT prophylaxis: On Eliquis. DISPOSITION: Monitor in the med tele. PT/OT prior to discharge. Social service to help with discharge planning. Plan to discharge back to [facility]. Code Status, sister states he is a DNR, but last admission he was a full code. Need to clarify with [facility] [place] - awaiting a phone call back. Admission and Anticipated Discharge Date Admission Date: January 07, 2021 Subjective Patient seen in follow-up of encephalopathy, hypoglycemia Currently he is sitting up in the bed, in no acute distress, resting He is awake and alert and able to answer most questions appropriately He denies any complaints, denies any pain, specifically denies any chest pain or shortness of breath Patient hypoglycemic again yesterday morning. Discussed with patient's nurse, glycemic pharmacist, will further discuss with R[facility] arceo as well to try to adjust insulin as good as possible to patient's needs so he does not experience hypoglycemic episodes. Review of Systems Review of Systems: All systems reviewed & are unremarkable except as noted in HPI & below Constitutional: no fever and no chills Respiratory: no cough and no dyspnea Cardiovascular: no chest pain and no palpitations Gastrointestinal: no abdominal pain, no nausea and no vomiting Physical Exam Physical Exam: GENERAL: The patient is alert and awake in NAD HEENT: NC, Pupils equal, round and reactive to light. Oral mucosa moist. NECK: No JVD, no neck masses. CARDIOVASCULAR: S1 and S2 heard. Regular rate and rhythm. No murmur, no gallop. RESPIRATORY: Normal AP diameter. No accessory muscle use. No wheezing, no crackles. ABDOMEN: Soft, bowel sounds present, nontender, no distention. NEURO: Alert and awake, able to answer most questions appropriately. Speech slow but fluent (at baseline). Moves extremities. EXTREMITIES: Status post left below-knee amputation. No edema, no erythema seen. Results & Data Results & Data ([facility]) Vital Signs (Past 12 Hours) Vital Signs Temp Pulse Pulse Resp BP BP Pulse Ox 01/10/21 07:18 64 01/10/21 07:03 36.9 C 67 20 148/82 H 95 01/10/21 04:42 36.8 C 66 20 130/71 94 01/09/21 23:31 36.7 C 80 18 109/69 94 01/09/21 20:00 37.0 C 74 18 117/56 L 96 Laboratory Results 01/10/21 01/10/21 01/10/21 Range/Units 07:18 06:36 04:19 Sodium 139 (136-145) mmol/L Potassium 4.2 (3.5-5.1) mmol/L Chloride 105 (98-107) mmol/L Carbon Dioxide 31 (21-32) mmol/L Anion Gap 2.0 L (3-11) BUN 22 H (7-18) mg/dl Creatinine 1.08 (0.6-1.4) mg/dl Est Cr Clr Drug Dosing 56.8 ml/min Est GFR ( Amer) 80.7 ml/min Est GFR (Non-Af Amer) 69.7 ml/min BUN/Creatinine Ratio 20.3 H (10-20) Glucose 144 H (70-99) mg/dl POC Glucose 134 H 165 H (70-99) mg/dl Calcium 9.1 (8.5-10.1) mg/dl 01/10/21 01/09/21 01/09/21 Range/Units 00:35 20:55 16:19 Sodium (136-145) mmol/L Potassium (3.5-5.1) mmol/L Chloride (98-107) mmol/L Carbon Dioxide (21-32) mmol/L Anion Gap (3-11) BUN (7-18) mg/dl Creatinine (0.6-1.4) mg/dl Est Cr Clr Drug Dosing ml/min Est GFR ( Amer) ml/min Est GFR (Non-Af Amer) ml/min BUN/Creatinine Ratio (10-20) Glucose (70-99) mg/dl POC Glucose 268 H 221 H 226 H (70-99) mg/dl Calcium (8.5-10.1) mg/dl 01/09/21 Range/Units 11:33 Sodium (136-145) mmol/L Potassium (3.5-5.1) mmol/L Chloride (98-107) mmol/L Carbon Dioxide (21-32) mmol/L Anion Gap (3-11) BUN (7-18) mg/dl Creatinine (0.6-1.4) mg/dl Est Cr Clr Drug Dosing ml/min Est GFR ( Amer) ml/min Est GFR (Non-Af Amer) ml/min BUN/Creatinine Ratio (10-20) Glucose (70-99) mg/dl POC Glucose 176 H (70-99) mg/dl Calcium (8.5-10.1) mg/dl Medications Administered Current Inpatient Medications Acetaminophen (Acetaminophen 325 Mg Tab) 650 mg PO Q4H PRN PRN Reason: Pain or Fever Stop: 02/06/21 08:20 Apixaban (Apixaban 5 Mg Tablet) 5 mg PO BID [facility] Stop: 02/06/21 08:59 Last Admin: 01/09/21 22:34 Dose: 5 mg Documented by: Aspirin (Aspirin 81 Mg Ectab) 81 mg PO QAM [facility] Stop: 02/06/21 08:59 Last Admin: 01/09/21 08:37 Dose: 81 mg Documented by: Atorvastatin Calcium (Atorvastatin 10 Mg Tab) 10 mg PO HS [facility] Stop: 02/06/21 20:59 Last Admin: 01/09/21 22:34 Dose: 10 mg Documented by: Calcium Carbonate (Calcium Carbonate 1250mg Tab) 1,250 mg PO QAM [facility] Stop: 02/06/21 08:59 Last Admin: 01/09/21 08:38 Dose: 1,250 mg Documented by: Dextrose (Dextrose 50% 50 Ml Syringe) 25 - 50 ml IV UD PRN; Protocol PRN Reason: Hypoglycemia Protocol Stop: 02/06/21 09:29 Last Admin: 01/09/21 07:18 Dose: 50 ml Documented by: Glucagon (Glucagon For Inj 1 Mg Vial) 1 mg IM UD PRN; Protocol PRN Reason: Hypoglycemia Protocol Stop: 02/06/21 09:29 Glucose (Glucose 40% Gel 15 Gm Tube) 15 - 30 gm PO UD PRN; Protocol PRN Reason: Hypoglycemia Protocol Stop: 02/06/21 09:29 Glucose (Glucose 10 Tabs/Tube) 4 - 8 tabs PO UD PRN; Protocol PRN Reason: Hypoglycemia Protocol Stop: 02/06/21 09:29 Insulin Aspart (Insulin Aspart 100 Units/Ml 3 Ml Pen) 0 units SC ACHS [facility] Stop: 02/06/21 11:29 Last Admin: 01/09/21 22:33 Dose: 3 units Documented by: Insulin Glargine (Insulin Glargine Solostar 100 Units/Ml 3 Ml Pen) 0 units SC DAILY@1800 AYDEN; Protocol Stop: 02/07/21 17:59 Last Admin: 01/09/21 17:05 Dose: 10 units Documented by: Losartan Potassium (Losartan Potassium 50 Mg Tab) 50 mg PO QAM [facility] Stop: 02/06/21 08:59 Last Admin: 01/09/21 08:37 Dose: 50 mg Documented by: Metoprolol Tartrate (Metoprolol Tartrate 25 Mg Tab) 25 mg PO BID [facility] Stop: 02/06/21 08:59 Last Admin: 01/09/21 22:34 Dose: 25 mg Documented by: Miscellaneous (Carbohydrates For Hypoglycemia ) 15 - 30 gm PO UD PRN PRN Reason: Hypoglycemia Treatment Stop: 02/06/21 09:29 Last Admin: 01/09/21 06:59 Dose: 30 gm Documented by: Miscellaneous Information (Pharmacy Glycemic Mgmt Consult) 1 ea N/A UD PRN PRN Reason: Consult Stop: 02/06/21 09:25 Nitroglycerin (Nitroglycerin Sl 0.4 Mg/Tab Tab) 0.4 mg SL UD PRN PRN Reason: Chest Pain Stop: 02/06/21 08:20 Pantoprazole Sodium (Pantoprazole 40 Mg Tab) 40 mg PO [facility] Stop: 02/06/21 08:59 Last Admin: 01/09/21 08:38 Dose: 40 mg Documented by: Polyethylene Glycol (Polyethylene (Miralax) 17 Gm Pack) 17 gm PO DAILY PRN PRN Reason: Constipation Stop: 02/06/21 08:20 Quetiapine Fumarate (Quetiapine Fumarate 25 Mg Tablet) 25 mg PO TID [facility] Stop: 02/06/21 08:59 Last Admin: 01/09/21 22:33 Dose: 25 mg Documented by: Sennosides (Senna 8.6 Mg Tab) 8.6 mg PO QAM [facility] Stop: 02/06/21 08:59 Last Admin: 01/09/21 08:38 Dose: 8.6 mg Documented by: Sertraline HCl (Sertraline Hcl 50 Mg Tablet) 75 mg PO QPM [facility] Stop: 02/06/21 20:59 Last Admin: 01/09/21 22:35 Dose: 75 mg Documented by: Vitamin D (Cholecalciferol 1,000 Units 25 Mcg Tab) 1,000 units PO QAM [facility] Stop: 02/06/21 08:59 Last Admin: 01/09/21 08:37 Dose: 1,000 units Documented by: (1) AMS (altered mental status) Altered mental status type: unspecified Qualified Code(s): R41.82 - Altered mental status, unspecified
[2021-01-10] MEDS: QUEtiapine FUMARATE 25 MG TABLET PO SCH ×3 (08:04→20:10)
[2021-01-10] MEDS: METOPROLOL TARTRATE 25 MG TAB PO SCH ×2 (08:04→20:11)
[2021-01-10] MEDS: SENNA 8.6 MG TAB PO SCH (08:05)
[2021-01-10] MEDS: APIXABAN 5 MG TABLET PO SCH ×2 (08:05→20:11)
[2021-01-10] MEDS: CALCIUM CARBONATE 1250MG TAB PO SCH (08:05)
[2021-01-10] MEDS: LOSARTAN POTASSIUM 50 MG TAB PO SCH (08:05)
[2021-01-10] MEDS: ASPIRIN 81 MG ECTAB PO SCH (08:05)
[2021-01-10] MEDS: PANTOprazole 40 MG TAB PO SCH (08:05)
[2021-01-10] MEDS: CHOLECALCIFEROL 1,000 UNITS 25 MCG TAB PO SCH (08:06)
--- NOTE | 2021-01-10 09:20 | Pharmacy Report ---
Pharmacy Glycemic Short Note 2 - Date of Service January 10, 2021 - Glycemic Short BSG Results (Last 24 hours): 01/09/21 01/09/21 01/09/21 11:33 16:19 20:55 Glucose POC Glucose 176 H 226 H 221 H 01/10/21 01/10/21 01/10/21 00:35 04:19 06:36 Glucose 144 H POC Glucose 268 H 165 H 01/10/21 07:18 Glucose POC Glucose 134 H OUTPATIENT ANTIDIABETIC REGIMEN: * Basaglar 25 units QAM * Novolog 7 units w/ breakfast, 5 units w/ lunch, 7 units w/ dinner * HbA1c = 9% on 01/07/21 ASSESSMENT: 01/10 * Pt has received 33 units of insulin over the past 24hrs * 10 units of basal with Lantus * 23 units of bolus with NovoLog * Pt with HYPO yesterday morning likely due to too much basal insulin on board. BSGs had been running low since admission because patient had 25 units of glargine on board from [facility]. Lantus has been titrated downwards daily. Pt received 10 units of Lantus last evening but also required 11 units of correctional insulin overnight to achieve goal fasting BSG of 134 mg/dl this morning. Will slightly increase basal this evening * Post-prandial BSGs also high- will tighten CF/CR 01/09 * Patient received total of 20 units of insulin yesterday, of which 15 units were basal insulin * Fasting BSG low at 45 mg/dL - treated per hypoglycemia protocol. Recheck 186 mg/dL * Will scale back on Lantus for HS time. Patient is type 1 DM so will need to f ollow very closely since scaling back on insulin. PO intake has not been very good. Eliminated CR this AM. Plan to utilize just correctional insulin for now and basal. 01/08 * Patient received total of 15 units of insulin yesterday, of which all 15 units were basal insulin * Fasting BSG 101 mg/dL - patient with no PO intake yesterday. Refused correctional insulin overnight * Will follow to see if patient eating today. Likely will need Lantus titrated 01/07 * 70 y/o admitted for hypoglycemia. Patient is a Type 1 diabetic managed at home on Basaglar and Novolog insulins. * Fasting BSG today was 88 mg/dl. * Attempted to talk to patient about when he took his Basaglar dose yesterday. He did not seem to know or remember. He also was not interested in eating his breakfast. Nurse said later that he did not eat at all. * Pre-lunch BSG was only 62 mg/dl. For this reason, basal insulin was held off this AM and afternoon. * Ordered lower dose of Lantus (based on wt and stress of 1) with dinner today. Expecting BSGs will be trending up since pt is a Type 1 diabetic. * Novolog parameters based on wt and stress of 2. * So far this admission, pt has not required any insulin and BSGs have been low. PLAN FOR INPATIENT GLYCEMIC CONTROL: * Basal insulin * Lantus 12-15 units HS * Bolus insulin * NovoLog per scale ACHS or Q6hrs while NPO * Goal Range: Low 110 mg/dL - High 140 mg/dL * Correction Factor: 35 mg/dL/unit * Nutritional / Prandial insulin per carb ratio of 1 unit per 11 grams CHO consumed PLAN FOR DISCHARGE: * TBD - BSG per EMS on arrival in 40s, outpatient regimen likely will need some adjustments on discharge * Will continue to follow to determine insulin needs
[2021-01-10] MEDS ORDERED: INSULIN GLARGINE SOLOSTAR 100 UNITS/ML 3 ML PEN SC ONE (12:45)
[2021-01-10] MEDS: ATORVASTATIN 10 MG TAB PO SCH (20:10)
[2021-01-10] MEDS: SERTRALINE HCL 50 MG TABLET PO SCH (20:11)
[2021-01-11] MEDS: APIXABAN 5 MG TABLET PO SCH ×2 (08:37→20:37)
[2021-01-11] MEDS: LOSARTAN POTASSIUM 50 MG TAB PO SCH (08:37)
[2021-01-11] MEDS: QUEtiapine FUMARATE 25 MG TABLET PO SCH ×3 (08:37→20:38)
[2021-01-11] MEDS: CHOLECALCIFEROL 1,000 UNITS 25 MCG TAB PO SCH (08:38)
[2021-01-11] MEDS: SENNA 8.6 MG TAB PO SCH (08:38)
[2021-01-11] MEDS: PANTOprazole 40 MG TAB PO SCH (08:38)
[2021-01-11] MEDS: CALCIUM CARBONATE 1250MG TAB PO SCH (08:38)
[2021-01-11] MEDS: ASPIRIN 81 MG ECTAB PO SCH (08:38)
[2021-01-11] MEDS: METOPROLOL TARTRATE 25 MG TAB PO SCH ×2 (08:38→20:38)
[2021-01-11] MEDS: INSULIN ASPART 100 UNITS/ML 3 ML PEN SC SCH ×4 (08:41→20:38)
[2021-01-11] MEDS ORDERED: INSULIN GLARGINE SOLOSTAR 100 UNITS/ML 3 ML PEN SC SCH ×2 (09:00)
--- NOTE | 2021-01-11 10:13 | Hospitalist Progress Note ---
Date of Service January 11, 2021 Assessment & Plan (1) AMS (altered mental status): (2) Hypoglycemia: This is a 70-year-old male who presents with encephalopathy most likely secondary to hypoglycemia. 1. Metabolic encephalopathy, secondary to hypoglycemia: On admission, the patient is afebrile, hemodynamically stable. No leukocytosis. Urinalysis negative. Chest x-ray unremarkable. CT of the head unremarkable. EKG w/o any isch. changes. No obvious source of any infection. Pt's sugars improved with dextrose. There is a question of his not being back to baseline as per the ER physician talking to the [facility], but as per admitting provider's conversation with the sister, his baseline mental status is confused, does not make much sense. Tried to call [facility], but was not able to reach them. Meanwhile, we will keep in the hospital and observe and monitor his sugars. Monitor hemodynamics. If any concerns, will get an MRI scan of the head and neuro consult.Will try to call [facility] in the a.m. Soft bite diet and speech evaluation in am. I contacted Randa arceo, and I was told that the patient's blood glucose was over 450 before dinner, patient did not eat much for dinner and received insulin, then at 8:15 pm they heard him moaning and his blood sugar was 39. He received glucose and he was unfortunately spitting it out, then he received more glucose and his blood sugar then recovered. Patient often difficult to comply with medications, refusing medications, per Randa arceo often patient refuses night meds. Per [facility] provider, reportedly patient seems to be more depressed lately. Currently patient is still afebrile, he is awake and alert, he is able to answer some questions appropriately, he is now independently eating lunch in his room. No signs of infection noted. 01/09 -patient had hypoglycemic episode again in the morning. Will need to further discuss with glycemic pharmacy, [facility] staff, how to adjust insulin the most appropriately to patient's needs so hypoglycemic episodes would be avoided. 01/11 -involved outreach educator, and glycemic pharmacist, insulin adjusted. However patient hyperglycemic this morning, sleepy. Difficult to adjust patient's insulin appropriately. Will reevaluate, likely discharge tomorrow. 2. Diabetes: Came with hypoglycemic episode. The patient has history of diabetic ketoacidosis in the past. We will hold his home insulin regimen. We will place him on insulin sliding scale. Current HbA1c 9.0% We will consult pharmacy for glycemia management. 3. History of atrial fibrillation: Continue his metoprolol and Eliquis. 4. History of hypertension: Continue his losartan, metoprolol. We will monitor his blood pressure. 5. History of hyperlipidemia: Continue statin. 6. History of stroke: On aspirin and statin. 7. History of depression: Continue his Zoloft and Seroquel. 8. Cognitive disorder: Monitor for any delirium. DVT prophylaxis: On Eliquis. DISPOSITION: Monitor in the [employer] tele. PT/OT prior to discharge. Social service to help with discharge planning. Plan to discharge back to [facility]. Code Status, sister states he is a DNR, but last admission he was a full code. Need to clarify with [facility] - awaiting a phone call back. Admission and Anticipated Discharge Date Admission Date: January 07, 2021 Subjective Patient seen in follow-up of encephalopathy, hypoglycemia Currently he is lying in the bed, resting, sleepy, in no acute distress It has been difficult managing his insulin as he was hypoglycemic here, and today he is hyperglycemic. Discussed with patient's nurse, glycemic pharmacist, certified lactation educator to try to appropriately adjust his insulin. Review of Systems Review of Systems: All systems reviewed & are unremarkable except as noted in HPI & below Physical Exam Physical Exam: GENERAL: The patient is alert and awake in NAD HEENT: NC, Pupils equal, round and reactive to light. Oral mucosa moist. NECK: No JVD, no neck masses. CARDIOVASCULAR: S1 and S2 heard. Regular rate and rhythm. No murmur, no gallop. RESPIRATORY: Normal AP diameter. No accessory muscle use. No wheezing, no crackles. ABDOMEN: Soft, bowel sounds present, nontender, no distention. NEURO: Alert and awake, able to answer most questions appropriately. Speech slow but fluent (at baseline). Moves extremities. EXTREMITIES: Status post left below-knee amputation. No edema, no erythema seen. Results & Data Results & Data ([facility]) Vital Signs (Past 12 Hours) Vital Signs Temp Pulse Pulse Resp BP Pulse Ox 01/11/21 07:17 36.9 C 77 19 144/65 H 99 01/11/21 07:12 72 01/11/21 03:59 36.8 C 72 20 159/55 H 98 01/10/21 23:57 83 01/10/21 22:38 36.9 C 85 18 107/69 98 Laboratory Results 01/11/21 01/11/21 01/11/21 Range/Units 11:30 09:31 07:37 Sodium 134 L (136-145) mmol/L Potassium 4.5 (3.5-5.1) mmol/L Chloride 102 (98-107) mmol/L Carbon Dioxide 29 (21-32) mmol/L Anion Gap 3.0 (3-11) BUN 21 H (7-18) mg/dl Creatinine 1.21 (0.6-1.4) mg/dl Est Cr Clr Drug Dosing 51.1 ml/min Est GFR ( Amer) 70.4 ml/min Est GFR (Non-Af Amer) 60.7 ml/min BUN/Creatinine Ratio 17.1 (10-20) Glucose 401 H* (70-99) mg/dl POC Glucose 327 H* 362 H* (70-99) mg/dl Calcium 8.8 (8.5-10.1) mg/dl Beta-Hydroxybutyric Acd 5.99 H (0.2-2.81) mg/dl 01/11/21 01/10/21 01/10/21 Range/Units 07:36 20:04 16:30 Sodium (136-145) mmol/L Potassium (3.5-5.1) mmol/L Chloride (98-107) mmol/L Carbon Dioxide (21-32) mmol/L Anion Gap (3-11) BUN (7-18) mg/dl Creatinine (0.6-1.4) mg/dl Est Cr Clr Drug Dosing ml/min Est GFR ( Amer) ml/min Est GFR (Non-Af Amer) ml/min BUN/Creatinine Ratio (10-20) Glucose (70-99) mg/dl POC Glucose 326 H* 73 204 H (70-99) mg/dl Calcium (8.5-10.1) mg/dl Beta-Hydroxybutyric Acd (0.2-2.81) mg/dl Medications Administered Current Inpatient Medications Acetaminophen (Acetaminophen 325 Mg Tab) 650 mg PO Q4H PRN PRN Reason: Pain or Fever Stop: 07/25/21 08:20 Apixaban (Apixaban 5 Mg Tablet) 5 mg PO BID [facility] Stop: 02/06/21 08:59 Last Admin: 01/11/21 08:37 Dose: 5 mg Documented by: Aspirin (Aspirin 81 Mg Ectab) 81 mg PO QAM [facility] Stop: 02/06/21 08:59 Last Admin: 01/11/21 08:38 Dose: 81 mg Documented by: Atorvastatin Calcium (Atorvastatin 10 Mg Tab) 10 mg PO HS [facility] Stop: 02/06/21 20:59 Last Admin: 01/10/21 20:10 Dose: 10 mg Documented by: Calcium Carbonate (Calcium Carbonate 1250mg Tab) 1,250 mg PO QAM [facility] Stop: 02/06/21 08:59 Last Admin: 01/11/21 08:38 Dose: 1,250 mg Documented by: Dextrose (Dextrose 50% 50 Ml Syringe) 25 - 50 ml IV UD PRN; Protocol PRN Reason: Hypoglycemia Protocol Stop: 02/06/21 09:29 Last Admin: 01/09/21 07:18 Dose: 50 ml Documented by: Glucagon (Glucagon For Inj 1 Mg Vial) 1 mg IM UD PRN; Protocol PRN Reason: Hypoglycemia Protocol Stop: 02/06/21 09:29 Glucose (Glucose 40% Gel 15 Gm Tube) 15 - 30 gm PO UD PRN; Protocol PRN Reason: Hypoglycemia Protocol Stop: 02/06/21 09:29 Glucose (Glucose 10 Tabs/Tube) 4 - 8 tabs PO UD PRN; Protocol PRN Reason: Hypoglycemia Protocol Stop: 02/06/21 09:29 Insulin Aspart (Insulin Aspart 100 Units/Ml 3 Ml Pen) 0 units SC ACHS [facility] Stop: 02/06/21 11:29 Last Admin: 01/11/21 12:40 Dose: 11 units Documented by: Insulin Aspart (Insulin Aspart 100 Units/Ml 3 Ml Pen) 0 units SC 0000,[id number] [facility] Stop: 01/12/21 04:01 Insulin Glargine (Insulin Glargine Solostar 100 Units/Ml 3 Ml Pen) 0 units SC DAILY [facility]; Protocol Stop: 02/11/21 08:59 Losartan Potassium (Losartan Potassium 50 Mg Tab) 50 mg PO QAM [facility] Stop: 02/06/21 08:59 Last Admin: 01/11/21 08:37 Dose: 50 mg Documented by: Metoprolol Tartrate (Metoprolol Tartrate 25 Mg Tab) 25 mg PO BID [facility] Stop: 02/06/21 08:59 Last Admin: 01/11/21 08:38 Dose: 25 mg Documented by: Miscellaneous (Carbohydrates For Hypoglycemia ) 15 - 30 gm PO UD PRN PRN Reason: Hypoglycemia Treatment Stop: 02/06/21 09:29 Last Admin: 01/09/21 06:59 Dose: 30 gm Documented by: Miscellaneous Information (Pharmacy Glycemic Mgmt Consult) 1 ea N/A UD PRN PRN Reason: Consult Stop: 02/06/21 09:25 Nitroglycerin (Nitroglycerin Sl 0.4 Mg/Tab Tab) 0.4 mg SL UD PRN PRN Reason: Chest Pain Stop: 02/06/21 08:20 Pantoprazole Sodium (Pantoprazole 40 Mg Tab) 40 mg PO QAM [facility] Stop: 02/06/21 08:59 Last Admin: 01/11/21 08:38 Dose: 40 mg Documented by: Polyethylene Glycol (Polyethylene (Miralax) 17 Gm Pack) 17 gm PO DAILY PRN PRN Reason: Constipation Stop: 02/06/21 08:20 Quetiapine Fumarate (Quetiapine Fumarate 25 Mg Tablet) 25 mg PO TID [facility] Stop: 02/06/21 08:59 Last Admin: 01/11/21 08:37 Dose: 25 mg Documented by: Sennosides (Senna 8.6 Mg Tab) 8.6 mg PO QAM [facility] Stop: 02/06/21 08:59 Last Admin: 01/11/21 08:38 Dose: 8.6 mg Documented by: Sertraline HCl (Sertraline Hcl 50 Mg Tablet) 75 mg PO QPM [facility] Stop: 02/06/21 20:59 Last Admin: 01/10/21 20:11 Dose: 75 mg Documented by: Vitamin D (Cholecalciferol 1,000 Units 25 Mcg Tab) 1,000 units PO QAM [facility] Stop: 02/06/21 08:59 Last Admin: 01/11/21 08:38 Dose: 1,000 units Documented by: (1) AMS (altered mental status) Altered mental status type: unspecified Qualified Code(s): R41.82 - Altered mental status, unspecified
[2021-01-11 10:32] LABS: BUN Creatinine Ratio 17.1 (10-20); Calcium 8.8 mg/dl (8.5-10.1); Creatinine Clr Calc Pharmacy 51.1 ml/min; Est GFR (African American) 70.4 ml/min; Est GFR (Non-African American) 60.7 ml/min; Potassium 4.5 mmol/L (3.5-5.1)
[2021-01-11 10:47] LABS: Beta-Hydroxybutyrate 5.99 mg/dl (0.2-2.81)
[2021-01-11] MEDS ORDERED: INSULIN HUMAN REGULAR PER UNIT 7 UNITS in SYRINGE 6.93 ML IV ONE (11:00)
--- NOTE | 2021-01-11 14:01 | Pharmacy Report ---
Pharmacy Glycemic Short Note 2 - Date of Service January 11, 2021 - Glycemic Short BSG Results (Last 24 hours): 01/10/21 01/10/21 01/11/21 16:30 20:04 07:36 Glucose POC Glucose 204 H 73 326 H* 01/11/21 01/11/21 01/11/21 07:37 09:31 11:30 Glucose 401 H* POC Glucose 362 H* 327 H* OUTPATIENT ANTIDIABETIC REGIMEN: * Basaglar 25 units QAM * Novolog 7 units w/ breakfast, 5 units w/ lunch, 7 units w/ dinner * HbA1c = 9% on 01/07/21 ASSESSMENT: 01/11 * BSGs yesterday of 134, 307, 204, and 73 mg/dL * Received 32 units of insulin (14 units of basal and 18 units of prandial/correctional bolus) * BSG this morning is 362 mg/dL * Discussed with RN -> last evening patient was given lots of snacks and boost for his BSG of 73 mg/dL. This was not covered with insulin and patient refused any further BSG checks overnight * Will not overreact to this level * BSG before lunch of 401 mg/dL -> will now order 7 unit IV insulin bolus (~0.1 unit/kg) 01/10 * Pt has received 33 units of insulin over the past 24hrs * 10 units of basal with Lantus * 23 units of bolus with NovoLog * Pt with HYPO yesterday morning likely due to too much basal insulin on board. BSGs had been running low since admission because patient had 25 units of glargine on board from [facility]. Lantus has been titrated downwards daily. Pt received 10 units of Lantus last evening but also required 11 units of correctional insulin overnight to achieve goal fasting BSG of 134 mg/dl this morning. Will slightly increase basal this evening * Post-prandial BSGs also high- will tighten CF/CR 01/09 * Patient received total of 20 units of insulin yesterday, of which 15 units were basal insulin * Fasting BSG low at 45 mg/dL - treated per hypoglycemia protocol. Recheck 186 mg/dL * Will scale back on Lantus for HS time. Patient is type 1 DM so will need to follow very closely since scaling back on insulin. PO intake has not been very good. Eliminated CR this AM. Plan to utilize just correctional insulin for now and basal. 01/08 * Patient received total of 15 units of insulin yesterday, of which all 15 units were basal insulin * Fasting BSG 101 mg/dL - patient with no PO intake yesterday. Refused correctional insulin overnight * Will follow to see if patient eating today. Likely will need Lantus titrated 01/07 * 70 y/o admitted for hypoglycemia. Patient is a Type 1 diabetic managed at home on Basaglar and Novolog insulins. * Fasting BSG today was 88 mg/dl. * Attempted to talk to patient about when he took his Basaglar dose yesterday. He did not seem to know or remember. He also was not interested in eating his breakfast. Nurse said later that he did not eat at all. * Pre-lunch BSG was only 62 mg/dl. For this reason, basal insulin was held off this AM and afternoon. * Ordered lower dose of Lantus (based on wt and stress of 1) with dinner today. Expecting BSGs will be trending up since pt is a Type 1 diabetic. * Novolog parameters based on wt and stress of 2. * So far this admission, pt has not required any insulin and BSGs have been low. PLAN FOR INPATIENT GLYCEMIC CONTROL: * Basal insulin * Lantus 15 units SC x 1 today * Lantus scale to provide 15-18 units SC daily starting tomorrow * Bolus insulin * NovoLog per scale ACHS or Q6hrs while NPO * Goal Range: Low 110 mg/dL - High 140 mg/dL * Correction Factor: 30 mg/dL/unit * Nutritional / Prandial insulin per carb ratio of 1 unit per 10 grams CHO consumed * Overnight checks at 00,04 with same parameters PLAN FOR DISCHARGE: * Please see discharge recommendations from pharmacy glycemic note on 01/10/2021
[2021-01-11] MEDS: ATORVASTATIN 10 MG TAB PO SCH (20:37)
[2021-01-11] MEDS: SERTRALINE HCL 50 MG TABLET PO SCH (20:38)
[2021-01-12] MEDS: INSULIN ASPART 100 UNITS/ML 3 ML PEN SC SCH ×6 (00:01→21:36)
[2021-01-12 08:24] LABS: BUN Creatinine Ratio 22.4 (10-20); Creatinine Clr Calc Pharmacy 51.1 ml/min; Est GFR (African American) 71.1 ml/min; Est GFR (Non-African American) 61.3 ml/min; Magnesium 2.3 mg/dl (1.8-2.4); Potassium 4.4 mmol/L (3.5-5.1)
[2021-01-12 08:25] LABS: Phosphorus 3.1 mg/dl (2.5-4.9)
[2021-01-12] MEDS: CALCIUM CARBONATE 1250MG TAB PO SCH ×2 (08:26→11:35)
[2021-01-12] MEDS: PANTOprazole 40 MG TAB PO SCH ×2 (08:27→11:36)
[2021-01-12] MEDS: METOPROLOL TARTRATE 25 MG TAB PO SCH ×3 (08:27→20:56)
[2021-01-12] MEDS: CHOLECALCIFEROL 1,000 UNITS 25 MCG TAB PO SCH ×2 (08:27→11:35)
[2021-01-12] MEDS: APIXABAN 5 MG TABLET PO SCH ×3 (08:28→20:56)
[2021-01-12] MEDS: QUEtiapine FUMARATE 25 MG TABLET PO SCH ×4 (08:28→20:56)
[2021-01-12] MEDS: SENNA 8.6 MG TAB PO SCH ×2 (08:28→11:36)
[2021-01-12] MEDS: LOSARTAN POTASSIUM 50 MG TAB PO SCH ×2 (08:28→11:35)
[2021-01-12] MEDS: ASPIRIN 81 MG ECTAB PO SCH ×2 (08:29→11:35)
[2021-01-12] MEDS: INSULIN GLARGINE SOLOSTAR 100 UNITS/ML 3 ML PEN SC SCH (08:30)
--- NOTE | 2021-01-12 17:40 | Hospitalist Progress Note ---
Date of Service January 12, 2021 Assessment & Plan (1) AMS (altered mental status): (2) Hypoglycemia: This is a 70-year-old male who presents with encephalopathy most likely secondary to hypoglycemia. Metabolic encephalopathy Mostly secondary to hypoglycemia: Chest x-ray unremarkable. CT of the head unremarkable. EKG w/o any isch. changes. No obvious source of any infection. Pt's sugars improved with dextrose. There is a question of his not being back to baseline as per the ER physician talking to the [facility], but as per admitting provider's conversation with the sister, his baseline mental status is confused, does not make much sense. T[facility] to call [facility], but was not able to reach them. Meanwhile, we will keep in the hospital and observe and monitor his sugars. Monitor hemodynamics. If any concerns, will get an MRI scan of the head and neuro consult.Will try to call [facility] in the a.m. Soft bite diet and speech evaluation in am. Randa arceo was contacted and said BS was 450 before dinner, then did not eat much and received insulin that dropped blood sugar to 39. He received glucose and he was unfortunately spitting it out, then he received more glucose and his blood sugar then recovered. Patient often difficult to comply with medications, refusing medications, per Randa arceo often patient refuses night meds. Pharmacy on board for glycemic management fire pilot on board Continue monitor your blood sugar 2. Diabetes: Came with hypoglycemic episode. The patient has history of diabetic ketoacidosis in the past. We will hold his home insulin regimen. We will place him on insulin sliding scale. Current HbA1c 9.0% pharmacy on board for glycemia management. 3. History of atrial fibrillation: Continue his metoprolol and Eliquis. 4. History of hypertension: Continue his losartan, metoprolol. We will monitor his blood pressure. 5. History of hyperlipidemia: Continue statin. 6. History of stroke: On aspirin and statin. 7. History of depression: Continue his Zoloft and Seroquel. 8. Cognitive disorder: Monitor for any delirium. DVT prophylaxis: On Eliquis. DISPOSITION: waiting for placement Admission and Anticipated Discharge Date Admission Date: January 07, 2021 Subjective Patient was seen and examined for follow-up of encephalopathy and hypoglycemia Lying in bed with no distress Nurse said patient refused to take his oral medication Denies any chest pain, palpitation, dizziness, shortness of breath. Review of Systems Review of Systems: All systems reviewed & are unremarkable except as noted in Subjective Physical Exam Physical Exam: General- No acute distress Head- atraumatic Eyes- PERRL, EOMI, ENT- oropharynx clear Neck- supple, no JVD Lungs- clear to auscultation Heart- regular rhythm; no murmur Abdomen- normal bowel sounds, soft, nontender Extremities- no calf tenderness, Status post left below-knee amputation. Neuro- alert, oriented x 3; PERRL, EOMI; no facial palsy; no dysarthria Skin- warm & dry Results & Data Results & Data ([facility]) Vital Signs (Past 12 Hours) Vital Signs Temp Pulse Pulse Resp BP Pulse Ox 01/12/21 15:03 87 01/12/21 11:00 37 C 81 16 138/64 97 01/12/21 07:35 36.8 C 76 17 117/69 99 01/12/21 07:06 72 (1) AMS (altered mental status) Altered mental status type: unspecified Qualified Code(s): R41.82 - Altered mental status, unspecified
[2021-01-12] MEDS: ATORVASTATIN 10 MG TAB PO SCH (20:56)
[2021-01-12] MEDS: SERTRALINE HCL 50 MG TABLET PO SCH (20:56)
[2021-01-13] MEDS: QUEtiapine FUMARATE 25 MG TABLET PO SCH ×3 (08:06→20:58)
[2021-01-13] MEDS: ASPIRIN 81 MG ECTAB PO SCH (08:06)
[2021-01-13] MEDS: CHOLECALCIFEROL 1,000 UNITS 25 MCG TAB PO SCH (08:07)
[2021-01-13] MEDS: SENNA 8.6 MG TAB PO SCH (08:07)
[2021-01-13] MEDS: LOSARTAN POTASSIUM 50 MG TAB PO SCH (08:07)
[2021-01-13] MEDS: PANTOprazole 40 MG TAB PO SCH (08:08)
[2021-01-13] MEDS: CALCIUM CARBONATE 1250MG TAB PO SCH (08:08)
[2021-01-13] MEDS: METOPROLOL TARTRATE 25 MG TAB PO SCH ×2 (08:45→20:57)
[2021-01-13] MEDS: APIXABAN 5 MG TABLET PO SCH ×2 (08:46→20:59)
[2021-01-13] MEDS: INSULIN GLARGINE SOLOSTAR 100 UNITS/ML 3 ML PEN SC SCH (08:47)
[2021-01-13] MEDS: INSULIN ASPART 100 UNITS/ML 3 ML PEN SC SCH ×4 (08:48→21:03)
[2021-01-13 09:16] LABS: Calcium 9.6 mg/dl (8.5-10.1); Creatinine Clr Calc Pharmacy 59.1 ml/min; Est GFR (African American) 94.3 ml/min; Est GFR (Non-African American) 81.3 ml/min; Potassium 4.6 mmol/L (3.5-5.1)
--- NOTE | 2021-01-13 11:11 | Pharmacy Report ---
Pharmacy Glycemic Short Note 2 - Date of Service January 13, 2021 - Glycemic Short BSG Results (Last 24 hours): 01/12/21 01/12/21 01/12/21 11:15 16:36 20:25 Glucose POC Glucose 247 H 131 H 127 H 01/13/21 01/13/21 01/13/21 04:22 07:50 07:57 Glucose 223 H POC Glucose 161 H 213 H OUTPATIENT ANTIDIABETIC REGIMEN: * Basaglar 25 units QAM * Novolog 7 units w/ breakfast, 5 units w/ lunch, 7 units w/ dinner * HbA1c = 9% on 01/07/21 ASSESSMENT: 01/13 * Pt has received 25 units of insulin over the past 24hrs * 18 units of basal with Lantus * 17 units of bolus with NovoLog * BSGs trending in the right direction with current orders. Basal insulin likely needs increased slightly * Pt refusing PO intake at most meals therefore bolus insulin dosing is low 01/11 * BSGs yesterday of 134, 307, 204, and 73 mg/dL * Received 32 units of insulin (14 units of basal and 18 units of prandial/correctional bolus) * BSG this morning is 362 mg/dL * Discussed with RN -> last evening patient was given lots of snacks and boost for his BSG of 73 mg/dL. This was not covered with insulin and patient refused any further BSG checks overnight * Will not overreact to this level * BSG before lunch of 401 mg/dL -> will now order 7 unit IV insulin bolus (~0.1 unit/kg) 01/10 * Pt has received 33 units of insulin over the past 24hrs * 10 units of basal with Lantus * 23 units of bolus with NovoLog * Pt with HYPO yesterday morning likely due to too much basal insulin on board. BSGs had been running low since admission because patient had 25 units of glargine on board from [employer]. Lantus has been titrated downwards daily. Pt received 10 units of Lantus last evening but also required 11 units of correctional insulin overnight to achieve goal fasting BSG of 134 mg/dl this morning. Will slightly increase basal this evening * Post-prandial BSGs also high- will tighten CF/CR 01/09 * Patient received total of 20 units of insulin yesterday, of which 15 units were basal insulin * Fasting BSG low at 45 mg/dL - treated per hypoglycemia protocol. Recheck 186 mg/dL * Will scale back on Lantus for HS time. Patient is type 1 DM so will need to follow very closely since scaling back on insulin. PO intake has not been very good. Eliminated CR this AM. Plan to utilize just correctional insulin for now and basal. 01/08 * Patient received total of 15 units of insulin yesterday, of which all 15 units were basal insulin * Fasting BSG 101 mg/dL - patient with no PO intake yesterday. Refused correctional insulin overnight * Will follow to see if patient eating today. Likely will need Lantus titrated 01/07 * 70 y/o admitted for hypoglycemia. Patient is a Type 1 diabetic managed at home on Basaglar and Novolog insulins. * Fasting BSG today was 88 mg/dl. * Attempted to talk to patient about when he took his Basaglar dose yesterday. He did not seem to know or remember. He also was not interested in eating his breakfast. Nurse said later that he did not eat at all. * Pre-lunch BSG was only 62 mg/dl. For this reason, basal insulin was held off this AM and afternoon. * Ordered lower dose of Lantus (based on wt and stress of 1) with dinner today. Expecting BSGs will be trending up since pt is a Type 1 diabetic. * Novolog parameters based on wt and stress of 2. * So far this admission, pt has not required any insulin and BSGs have been low. PLAN FOR INPATIENT GLYCEMIC CONTROL: * Basal insulin * Lantus scale to provide 18-20 units SC daily * Bolus insulin * NovoLog per scale ACHS or Q6hrs while NPO * Goal Range: Low 110 mg/dL - High 140 mg/dL * Correction Factor: 35 mg/dL/unit * Nutritional / Prandial insulin per carb ratio of 1 unit per 9 grams CHO consumed PLAN FOR DISCHARGE: * Patient admitted with Hypoglycemia from outpatient Basaglar 25 units daily. Recommend DECREASING Basaglar. * RECOMMEND: Basaglar 20 units SQ daily. * Spoke with DM Educator Gena. She was able to review his BG log from [facility]. BG values tend to trend up, especially from breakfast to lunch. Likely needs increase in Novolog dose with breakfast and possibly lunch, also given good intake at these times. * RECOMMEND: Increasing NovoLog from 7 units to 10 units with Breakfast and lunch and removing the hold Novolog if BG < 150 parameter given the fact that the patient is a type 1 diabetic. Instead of holding NovoLog meal coverage based on BSG it is more appropriate to have the order to "hold if patient consumes less than 50% of the meal."
--- NOTE | 2021-01-13 16:25 | Hospitalist Progress Note ---
Date of Service January 13, 2021 Assessment & Plan (1) AMS (altered mental status): (2) Hypoglycemia: This is a 70-year-old male who presents with encephalopathy most likely secondary to hypoglycemia. Metabolic encephalopathy Mostly secondary to hypoglycemia: Chest x-ray unremarkable. CT of the head unremarkable. EKG w/o any isch. changes. No obvious source of any infection. Pt's sugars improved with dextrose. There is a question of his not being back to baseline as per the ER physician talking to the [facility], but as per admitting provider's conversation with the sister, his baseline mental status is confused, does not make much sense. Tried to call [facility], but was not able to reach them. Meanwhile, we will keep in the hospital and observe and monitor his sugars. Monitor hemodynamics. If any concerns, will get an MRI scan of the head and neuro consult.Will try to call [facility] in the a.m. Soft bite diet and speech evaluation in am. [facility] [place] [facility] was contacted and said BS was 450 before dinner, then did not eat much and received insulin that dropped blood sugar to 39. He received glucose and he was unfortunately spitting it out, then he received more glucose and his blood sugar then recovered. Patient often difficult to comply with medications, refusing medications, per [place] [facility] often patient refuses night meds. Pharmacy on board for glycemic management asthma educator on board Case discussed with pharmacy that recommended to decrease Basaglar from 25 to 20 unit or 18 units Then increase Novolog to 10 units with breakfast and lunch since pt usually eats more during breakfast/lunch, then continue 7 unit with dinner Diabetes Episode of hypoglycemic on admission Current HbA1c 9.0% pharmacy on board for glycemia management. "Copy Pharmacy recommendation" Patient admitted with Hypoglycemia from outpatient Basaglar 25 units daily. Recommend DECREASING Basaglar. RECOMMEND: Basaglar 20 units SQ daily Spoke with DM Educator Gena. She was able to review his BG log from [facility]. BG values tend to trend up, especially from breakfast to lunch. Likely needs increase in Novolog dose with breakfast and possibly lunch, also given good intake at these times. RECOMMEND: Increasing NovoLog from 7 units to 10 units with Breakfast and lunch and removing the hold Novolog if BG < 150 parameter given the fact that the patient is a type 1 diabetic. Instead of holding NovoLog meal coverage based on BSG it is more appropriate to have the order to "hold if patient consumes less than 50% of the meal." 3. History of atrial fibrillation: Continue his metoprolol and Eliquis. 4. History of hypertension: Continue his losartan, metoprolol. We will monitor his blood pressure. 5. History of hyperlipidemia: Continue statin. 6. History of stroke: On aspirin and statin. 7. History of depression: Continue his Zoloft and Seroquel. 8. Cognitive disorder: Monitor for any delirium. DVT prophylaxis: On Eliquis. DISPOSITION: Plan discharge tomorrow Admission and Anticipated Discharge Date Admission Date: January 07, 2021 Subjective Patient was seen and examined for follow-up of encephalopathy and hypoglycemia Sitting in chair with no distress He is more awake today and follow commands Denies any chest pain, palpitation, dizziness, shortness of breath. Review of Systems Review of Systems: All systems reviewed & are unremarkable except as noted in Subjective Physical Exam Physical Exam: General- No acute distress Head- atraumatic Eyes- PERRL, EOMI, ENT- oropharynx clear Neck- supple, no JVD Lungs- clear to auscultation Heart- regular rhythm; no murmur Abdomen- normal bowel sounds, soft, nontender Extremities- no calf tenderness, Status post left below-knee amputation. Neuro- alert, oriented x 3; PERRL, EOMI; no facial palsy; no dysarthria Skin- warm & dry Results & Data Results & Data ([facility]) Vital Signs (Past 12 Hours) Vital Signs Temp Pulse Resp BP BP Pulse Ox 01/13/21 14:56 37.1 C 76 17 110/71 95 01/13/21 10:59 36.7 C 92 H 19 160/72 H 99 01/13/21 07:34 36.7 C 89 19 162/71 H 99 (1) AMS (altered mental status) Altered mental status type: unspecified Qualified Code(s): R41.82 - Altered mental status, unspecified
[2021-01-13] MEDS: ATORVASTATIN 10 MG TAB PO SCH (20:57)
[2021-01-13] MEDS: SERTRALINE HCL 50 MG TABLET PO SCH (20:58)
[2021-01-14] MEDS: INSULIN ASPART 100 UNITS/ML 3 ML PEN SC SCH (09:29)
[2021-01-14] MEDS: LOSARTAN POTASSIUM 50 MG TAB PO SCH (09:30)
[2021-01-14] MEDS: METOPROLOL TARTRATE 25 MG TAB PO SCH (09:30)
[2021-01-14] MEDS: CHOLECALCIFEROL 1,000 UNITS 25 MCG TAB PO SCH (09:30)
[2021-01-14] MEDS: APIXABAN 5 MG TABLET PO SCH (09:30)
[2021-01-14] MEDS: PANTOprazole 40 MG TAB PO SCH (09:30)
[2021-01-14] MEDS: QUEtiapine FUMARATE 25 MG TABLET PO SCH (09:30)
[2021-01-14] MEDS: CALCIUM CARBONATE 1250MG TAB PO SCH (09:30)
[2021-01-14] MEDS: INSULIN GLARGINE SOLOSTAR 100 UNITS/ML 3 ML PEN SC SCH (09:30)
[2021-01-14] MEDS: SENNA 8.6 MG TAB PO SCH (09:30)
[2021-01-14] MEDS: ASPIRIN 81 MG ECTAB PO SCH (09:30)
--- NOTE | 2021-01-14 11:20 | Pharmacy Report ---
Pharmacy Glycemic Short Note 2 - Date of Service January 14, 2021 - Glycemic Short BSG Results (Last 24 hours): 01/13/21 01/13/21 01/13/21 11:23 16:30 20:02 POC Glucose 272 H 260 H 174 H 01/14/21 07:33 POC Glucose 75 OUTPATIENT ANTIDIABETIC REGIMEN: * Basaglar 25 units QAM * Novolog 7 units w/ breakfast, 5 units w/ lunch, 7 units w/ dinner * HbA1c = 9% on 01/07/21 ASSESSMENT: 01/14 * Pt received 20 units of basal of insulin yesterday and 15 units of novolog * BSGs were elevated yesterday, Fasting this morning 75 mg/dL * Slightly tightened correction factor. * Patient to go back to care facility today 01/13 * Pt has received 25 units of insulin over the past 24hrs * 18 units of basal with Lantus * 17 units of bolus with NovoLog * BSGs trending in the right direction with current orders. Basal insulin likely needs increased slightly * Pt refusing PO intake at most meals therefore bolus insulin dosing is low 01/11 * BSGs yesterday of 134, 307, 204, and 73 mg/dL * Received 32 units of insulin (14 units of basal and 18 units of prandial/correctional bolus) * BSG this morning is 362 mg/dL * Discussed with RN -> last evening patient was given lots of snacks and boost for his BSG of 73 mg/dL. This was not covered with insulin and patient refused any further BSG checks overnight * Will not overreact to this level * BSG before lunch of 401 mg/dL -> will now order 7 unit IV insulin bolus (~0.1 unit/kg) 01/10 * Pt has received 33 units of insulin over the past 24hrs * 10 units of basal with Lantus * 23 units of bolus with NovoLog * Pt with HYPO yesterday morning likely due to too much basal insulin on board. BSGs had been running low since admission because patient had 25 units of glargine on board from [facility]. Lantus has been titrated downwards daily. Pt received 10 units of Lantus last evening but also required 11 units of correctional insulin overnight to achieve goal fasting BSG of 134 mg/dl this morning. Will slightly increase basal this evening * Post-prandial BSGs also high- will tighten CF/CR 01/09 * Patient received total of 20 units of insulin yesterday, of which 15 units were basal insulin * Fasting BSG low at 45 mg/dL - treated per hypoglycemia protocol. Recheck 186 mg/dL * Will scale back on Lantus for HS time. Patient is type 1 DM so will need to follow very closely since scaling back on insulin. PO intake has not been very good. Eliminated CR this AM. Plan to utilize just correctional insulin for now and basal. 01/08 * Patient received total of 15 units of insulin yesterday, of which all 15 units were basal insulin * Fasting BSG 101 mg/dL - patient with no PO intake yesterday. Refused correctional insulin overnight * Will follow to see if patient eating today. Likely will need Lantus titrated 01/07 * 70 y/o admitted for hypoglycemia. Patient is a Type 1 diabetic managed at home on Basaglar and Novolog insulins. * Fasting BSG today was 88 mg/dl. * Attempted to talk to patient about when he took his Basaglar dose yesterday. He did not seem to know or remember. He also was not interested in eating his breakfast. Nurse said later that he did not eat at all. * Pre-lunch BSG was only 62 mg/dl. For this reason, basal insulin was held off this AM and afternoon. * Ordered lower dose of Lantus (based on wt and stress of 1) with dinner today. Expecting BSGs will be trending up since pt is a Type 1 diabetic. * Novolog parameters based on wt and stress of 2. * So far this admission, pt has not required any insulin and BSGs have been low. PLAN FOR INPATIENT GLYCEMIC CONTROL: * Basal insulin * Lantus scale to provide 18-20 units SC daily * Bolus insulin * NovoLog per scale ACHS or Q6hrs while NPO * Goal Range: Low 110 mg/dL - High 140 mg/dL * Correction Factor: 35 mg/dL/unit * Nutritional / Prandial insulin per carb ratio of 1 unit per 9 grams CHO consumed PLAN FOR DISCHARGE: * Please see note from 01/13/21 for recommendations.
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
== END 2021-01-14 12:06 | disposition home or self-care (01) | DRG 637 ==
LOC: ED 22:31 → SUATTDRO 01-07 06:16 → 2N 01-07 06:16

== ENCOUNTER 2021-01-30 20:18 | Observation (INO) ==
[2021-01-30] MEDS ORDERED: SODIUM CHLORIDE 0.9% 1000ML 1,000 ML IV SCH (20:45)
--- NOTE | 2021-01-30 20:46 | Emergency Department Note ---
Impression & Plan Hyperglycemia due to type 1 diabetes mellitus, Diabetes mellitus type 1 with complications, CHIVO (acute kidney injury) ED Provider Note Provider: Kun Fischer MD DATE OF SERVICE: 01/30/2021 CHIEF COMPLAINT: Elevated blood sugar HISTORY OF PRESENT ILLNESS: Patient is a 70-year-old gentleman history of paroxysmal atrial fibrillation on Eliquis, type 1 diabetes with history of DKA and lower extremity amputation, hypertension presenting via ambulance today from [facility] where he lives. Evidently seen in 530 his blood sugar read high on their meter. Was given an evening dose of insulin and over the next 2 hours his blood sugar continue to read significantly high. Patient denies any fatigue or thirst or fevers. Denies any abdominal discomfort or nausea or vomiting. He denies any dietary indiscretions or extra sugar that may be contributing. Denies recent changes medicines far as he is aware that he is not the best historian. REVIEW OF SYSTEMS: A total of 10 review of systems was obtained and negative except as stated above in the HPI. PAST MEDICAL HISTORY: As noted above MEDICATIONS: Reviewed home facility medication list SOCIAL HISTORY: Resides at nursing facility, non-smoker PHYSICAL EXAM: GENERAL: alert and oriented to person and tonight's events in no acute distress on stretcher however not oriented to current time Head: normocephalic and atraumatic EYES: No injection, discharge or icterus. NECK: Trachea midline. LUNGS: Airway patent. No retractions. Breath sounds clear with good air entry bilaterally. HEART: Regular rate and rhythm. No chest wall tenderness ABDOMEN: Soft and non-tender, without guarding or rebound. SKIN: Acyanotic, warm, dry, without rashes EXTREMITIES: Without swelling, tenderness or deformity with a left below the kn ee amputation and amputation of the right toes. NEUROLOGICAL: No focal deficits moving all extremities. No aphasia. No facial droop or slurred speech. EK bpm normal sinus rhythm. No PVC or PAC. No acute ST segment elevation or depression. QTC 440. CONTINUOUS CARDIAC MONITORING: was ordered and showed a heart rate of 60s-80s bpm in normal sinus rhythm Patient's laboratory studies and imaging reviewed. Differential includes Infection, dehydration, metabolic abnormality, hypo/hyperglycemia, electrolyte disturbance, anemia, hypoxia, cardiac sources, intracerebral event, toxicologic, neurologic, as well as other pathologies. IMPRESSION/MEDICAL DECISION MAKING: Patient history of type 1 diabetes with several episodes recently reported of hypoglycemia now with hyperglycemia this evening. Patient does not appear extremitas or significantly tachycardic but has a history of DKA. Basic labs are obtained is given a liter of IV fluid here initially. Patient without significant anemia or leukocytosis here. VBG without acidosis, hypercarbia, or significantly low bicarb. Doubt he is in DKA at this time given this. Blood work does show evidence of an elevated creatinine and likely some dehydration component with slightly elevated lactate. I doubt infectious source at this rigoberto e other urine sample is pending. Covid test was resent. Not having any respiratory symptoms no bleeding to chest x-ray or CT head at this time. Following directions without focal deficits although little bit confused at times seems from records this is not abnormal for him during his prior admiss ions here. Updated his POA via phone and recommended further hydration and glucose control here overnight. The patient was in agreement. The hospitalist was contacted. DIAGNOSIS: Hyperglycemia and type 1 diabetes, CHIVO DISPOSITION: Hospitalist will evaluate Patient was agreeable with this plan. Past Med/Surg History Medical History (Updated 01/30/21 @ 21:51 by Kun Fischer M.D.) AMS (altered mental status) Bipolar 1 disorder Cognitive disorder COVID-19 Dehydration Depression Diabetes mellitus type 1 with complications HTN (hypertension) Paroxysmal A-fib Status post amputation of toe of left foot Vitamin D deficiency Surgical History Status post below-knee amputation of left lower extremity Family History Other Family history unobtainable due to patient's condition Social History Smoking Status: Unknown if ever smoked Hx Alcohol Use: No (unknown) Preferred Language: Icelandic Communication Ability: Effective Manager Billing Required: No Beliefs That Will Affect Care: None marital status: Single Current Living Situation: Other Current Living Situation Comment: [facility] Feels Safe at Home: Yes Assistive Devices: None Allergies Allergies Allergy/AdvReac Type Severity Reaction Status Date / Time No Known Allergies Allergy Verified 01/30/21 22:04 Home Meds Home Medications Medication Instructions Recorded Confirmed losartan 50 mg tablet 50 mg PO QAM 11/17/20 01/30/21 acetaminophen 325 mg tablet 650 mg PO Q6H PRN MDD 3 GRAMS/24 01/06/21 01/30/21 (Tylenol) HOURS quetiapine 25 mg tablet 25 mg PO TID 01/06/21 01/30/21 sennosides 8.6 mg tablet (senna) 8.6 mg PO QAM 01/06/21 01/30/21 sertraline 50 mg tablet 75 mg PO QPM 01/06/21 01/30/21 Previous Rx's Medication Instructions Recorded apixaban 5 mg tablet (Eliquis) 5 mg PO BID 30 Days #60 tab 04/27/20 aspirin 81 mg tablet,delayed 81 mg PO QAM 30 Days #30 tab 04/27/20 release (Aspirin Low Dose) atorvastatin 10 mg tablet 10 mg PO HS 30 Days #30 tab 04/27/20 cholecalciferol (vitamin D3) 25 1,000 unit PO QAM 30 Days #30 cap 04/27/20 mcg (1,000 unit) capsule metoprolol tartrate 25 mg tablet 25 mg PO BID 30 Days #60 tab 04/27/20 pantoprazole 40 mg tablet,delayed 40 mg PO QAM 30 Days #30 tab 04/27/20 release ondansetron 4 mg disintegrating 4 mg PO Q8H PRN #10 tab 07/28/20 tablet insulin aspart U-100 100 unit/mL 10 unit SUBCUT UD #15 ml 01/14/21 (3 mL) subcutaneous pen (Novolog Flexpen U-100 Insulin aspart) insulin glargine 100 unit/mL (3 20 unit SUBCUT QAM #15 ml 01/14/21 mL) subcutaneous pen (Basaglar KwikPen U-100 Insulin) Results & Data (ED) Vital Signs Vital Signs - 24 hr 01/30/21 20:22 01/30/21 20:30 01/30/21 20:45 Temperature 36.6 C Temperature Source Oral Pulse Rate 69 69 Pulse Rate from SpO2 Sensor 69 Respiratory Rate 18 16 Respiratory Effort / Characteristics Non-Labored Spontaneous Respiratory Depth Normal Respiratory Pattern Regular Blood Pressure 118/42 L 140/39 L Blood Pressure [Right Arm] Blood Pressure Mean 67 72 Blood Pressure Mean [Right Arm] Blood Pressure Position Lying Pulse Oximetry 96 95 96 Oxygen Delivery Method Room Air Room Air Sepsis Recent Fever Within 48 Hours No Sepsis New/Unexplained Change in Mental Status N/A Sepsis Action Taken by Nursing No Action Required 01/30/21 21:01 01/30/21 21:16 01/30/21 22:01 Temperature Temperature Source Pulse Rate 68 66 Pulse Rate from SpO2 Sensor 68 66 Respiratory Rate 15 15 Respiratory Effort / Characteristics Respiratory Depth Respiratory Pattern Blood Pressure 103/36 L 113/44 L Blood Pressure [Right Arm] 146/44 H Blood Pressure Mean 58 67 Blood Pressure Mean [Right Arm] 78 Blood Pressure Position Pulse Oximetry 97 98 Oxygen Delivery Method Sepsis Recent Fever Within 48 Hours Sepsis New/Unexplained Change in Mental Status Sepsis Action Taken by Nursing 01/30/21 22:30 Temperature Temperature Source Pulse Rate 68 Pulse Rate from SpO2 Sensor 68 Respiratory Rate 13 Respiratory Effort / Characteristics Respiratory Depth Respiratory Pattern Blood Pressure 141/44 H Blood Pressure [Right Arm] Blood Pressure Mean 76 Blood Pressure Mean [Right Arm] Blood Pressure Position Pulse Oximetry 97 Oxygen Delivery Method Sepsis Recent Fever Within 48 Hours Sepsis New/Unexplained Change in Mental Status Sepsis Action Taken by Nursing Laboratory Data Result diagrams: 01/30/21 20:53 01/30/21 20:53 Lab Results 01/30/21 01/30/21 01/30/21 Range/Units 20:53 20:53 20:53 WBC 4.60 L (4.8-10.8) K/uL RBC 3.56 L (4.7-6.1) M/uL Hgb 10.5 L (14.0-18.0) g/dL Hct 32.1 L (42-52) % MCV 90.2 (80-100) fL MCH 29.5 (25-34) pg MCHC 32.7 (32-36) g/dL RDW Std Deviation 45.7 (36.4-46.3) fL RDW Coeff of Jace 13.8 (11.5-14.5) % Plt Count 269 (130-400) K/uL MPV 9.7 (7.4-10.4) fL Immature Gran % (Auto) 0.0 % Neut % (Auto) 39.1 % Lymph % (Auto) 50.2 % [place] % (Auto) 6.7 % Eos % (Auto) 3.3 % Baso % (Auto) 0.7 % Neut # (Auto) 1.80 (1.4-6.5) K/uL Lymph # (Auto) 2.31 (1.2-3.4) K/uL [place] # (Auto) 0.31 (0.11-0.59) K/uL Eos # (Auto) 0.15 (0-0.5) K/uL Baso # (Auto) 0.03 (0-0.2) K/uL Immature Gran # (Auto) 0.00 (0.00-0.02) K/uL VBG pH (7.36-7.41) VBG pCO2 (38-50) mmHg VBG pO2 mmHg VBG HCO3 mmol/L VBG O2 Saturation % VBG Base Excess mEq/L Barometric Pressure mm/Hg Sodium 136 (136-145) mmol/L Potassium 5.0 (3.5-5.1) mmol/L Chloride 103 (98-107) mmol/L Carbon Dioxide 26 (21-32) mmol/L Anion Gap 7.0 (3-11) BUN 33 H (7-18) mg/dl Creatinine 1.57 H (0.6-1.4) mg/dl Est Cr Clr Drug Dosing Not Reportable Est GFR ( Amer) 51.4 ml/min Est GFR (Non-Af Amer) 44.3 ml/min BUN/Creatinine Ratio 21.0 H (10-20) Glucose 479 H* (70-99) mg/dl POC Glucose (70-99) mg/dl Lactate 2.2 H* (0.4-2.0) mmol/L Calcium 8.1 L (8.5-10.1) mg/dl Magnesium 2.2 (1.8-2.4) mg/dl Total Bilirubin 0.2 (0.2-1) mg/dl AST 13 L (15-37) U/L ALT 23 (12-78) U/L Alkaline Phosphatase 100 (45-117) U/L Troponin I < 0.015 (0-0.045) ng/ml Total Protein 6.5 (6.4-8.2) gm/dl Albumin 3.0 L (3.4-5.0) gm/dl Globulin 3.5 (2.5-4.0) gm/dl Albumin/Globulin Ratio 0.9 (0.9-2) Beta-Hydroxybutyric Acd 1.04 (0.2-2.81) mg/dl TSH 1.190 (0.300-4.500) uIu/ml COVID-19 Eval Order SARS-CoV-2 (PCR) (Negative) 01/30/21 01/30/21 01/30/21 Range/Units 20:58 21:36 21:44 WBC (4.8-10.8) K/uL RBC (4.7-6.1) M/uL Hgb (14.0-18.0) g/dL Hct (42-52) % MCV (80-100) fL MCH (25-34) pg MCHC (32-36) g/dL RDW Std Deviation (36.4-46.3) fL RDW Coeff of Jace (11.5-14.5) % Plt Count (130-400) K/uL MPV (7.4-10.4) fL Immature Gran % (Auto) % Neut % (Auto) % Lymph % (Auto) % [place] % (Auto) % Eos % (Auto) % Baso % (Auto) % Neut # (Auto) (1.4-6.5) K/uL Lymph # (Auto) (1.2-3.4) K/uL [place] # (Auto) (0.11-0.59) K/uL Eos # (Auto) (0-0.5) K/uL Baso # (Auto) (0-0.2) K/uL Immature Gran # (Auto) (0.00-0.02) K/uL VBG pH 7.37 (7.36-7.41) VBG pCO2 44 (38-50) mmHg VBG pO2 48 mmHg VBG HCO3 25 mmol/L VBG O2 Saturation 82.9 % VBG Base Excess -0.3 mEq/L Barometric Pressure 733.9 mm/Hg Sodium (136-145) mmol/L Potassium (3.5-5.1) mmol/L Chloride (98-107) mmol/L Carbon Dioxide (21-32) mmol/L Anion Gap (3-11) BUN (7-18) mg/dl Creatinine (0.6-1.4) mg/dl Est Cr Clr Drug Dosing Est GFR ( Amer) ml/min Est GFR (Non-Af Amer) ml/min BUN/Creatinine Ratio (10-20) Glucose (70-99) mg/dl POC Glucose 448 H* (70-99) mg/dl Lactate (0.4-2.0) mmol/L Calcium (8.5-10.1) mg/dl Magnesium (1.8-2.4) mg/dl Total Bilirubin (0.2-1) mg/dl AST (15-37) U/L ALT (12-78) U/L Alkaline Phosphatase (45-117) U/L Troponin I (0-0.045) ng/ml Total Protein (6.4-8.2) gm/dl Albumin (3.4-5.0) gm/dl Globulin (2.5-4.0) gm/dl Albumin/Globulin Ratio (0.9-2) Beta-Hydroxybutyric Acd (0.2-2.81) mg/dl TSH (0.300-4.500) uIu/ml COVID-19 Eval Order Covid19 at [facility] SARS-CoV-2 (PCR) (Negative) 01/30/21 01/30/21 Range/Units 21:44 22:38 WBC (4.8-10.8) K/uL RBC (4.7-6.1) M/uL Hgb (14.0-18.0) g/dL Hct (42-52) % MCV (80-100) fL MCH (25-34) pg MCHC (32-36) g/dL RDW Std Deviation (36.4-46.3) fL RDW Coeff of Jace (11.5-14.5) % Plt Count (130-400) K/uL MPV (7.4-10.4) fL Immature Gran % (Auto) % Neut % (Auto) % Lymph % (Auto) % [place] % (Auto) % Eos % (Auto) % Baso % (Auto) % Neut # (Auto) (1.4-6.5) K/uL Lymph # (Auto) (1.2-3.4) K/uL [place] # (Auto) (0.11-0.59) K/uL Eos # (Auto) (0-0.5) K/uL Baso # (Auto) (0-0.2) K/uL Immature Gran # (Auto) (0.00-0.02) K/uL VBG pH (7.36-7.41) VBG pCO2 (38-50) mmHg VBG pO2 mmHg VBG HCO3 mmol/L VBG O2 Saturation % VBG Base Excess mEq/L Barometric Pressure mm/Hg Sodium (136-145) mmol/L Potassium (3.5-5.1) mmol/L Chloride (98-107) mmol/L Carbon Dioxide (21-32) mmol/L Anion Gap (3-11) BUN (7-18) mg/dl Creatinine (0.6-1.4) mg/dl Est Cr Clr Drug Dosing Est GFR ( Amer) ml/min Est GFR (Non-Af Amer) ml/min BUN/Creatinine Ratio (10-20) Glucose (70-99) mg/dl POC Glucose 278 H (70-99) mg/dl Lactate (0.4-2.0) mmol/L Calcium (8.5-10.1) mg/dl Magnesium (1.8-2.4) mg/dl Total Bilirubin (0.2-1) mg/dl AST (15-37) U/L ALT (12-78) U/L Alkaline Phosphatase (45-117) U/L Troponin I (0-0.045) ng/ml Total Protein (6.4-8.2) gm/dl Albumin (3.4-5.0) gm/dl Globulin (2.5-4.0) gm/dl Albumin/Globulin Ratio (0.9-2) Beta-Hydroxybutyric Acd (0.2-2.81) mg/dl TSH (0.300-4.500) uIu/ml COVID-19 Eval Order SARS-CoV-2 (PCR) NEGATIVE (Negative) Administered Medications Discontinued Medications Sodium Chloride (Nss 1000ml) 1,000 mls @ 999 mls/hr IV .Q1H1M AYDEN Stop: 01/30/21 21:45 Last Infusion: 01/30/21 21:49 Dose: 0 mls/hr Documented by: [id number] Admin: 01/30/21 20:48 Dose: 999 mls/hr Documented by: [id number] Lactated Ringer's (Lr) 1,000 mls @ 999 mls/hr IV .Q1H1M ONE Stop: 01/30/21 22:37 Last Admin: 01/30/21 21:48 Dose: 999 mls/hr Documented by: [id number] Insulin Human Regular (Novolin-R Insulin Per Unit Charge) 7 units IV NOW STA Stop: 01/30/21 21:38 Last Admin: 01/30/21 21:41 Dose: 7 units Documented by: [id number] Cosigned by: [id number] Discharge Plan Visit Data Chief Complaint: Hyperglycemia Stated Complaint: HYPERGLYCEMIC ED Provider: Kun Fischer Discharge Problem: Hyperglycemia due to type 1 diabetes mellitus, Diabetes mellitus type 1 with complications, CHIVO (acute kidney injury) Patient Disposition: Being Evaluated by Hospitalist Forms Stand Alone Forms: My [facility] Prescriptions Prescriptions: No Action atorvastatin 10 mg tablet 10 mg PO HS 30 Days Qty: 30 RF: 0 aspirin [Aspirin Low Dose] 81 mg tablet,delayed release (DR/EC) 81 mg PO QAM 30 Days Qty: 30 RF: 0 pantoprazole 40 mg tablet,delayed release (DR/EC) 40 mg PO QAM 30 Days Qty: 30 RF: 0 cholecalciferol (vitamin D3) 25 mcg (1,000 unit) Capsule 1,000 unit PO QAM 30 Days Qty: 30 RF: 0 metoprolol tartrate 25 mg Tablet 25 mg PO BID 30 Days Qty: 60 RF: 0 Eliquis 5 mg Tablet 5 mg PO BID 30 Days Qty: 60 RF: 0 ondansetron 4 mg tablet,disintegrating 4 mg PO Q8H PRN (Reason: nausea and vomiting) Qty: 10 RF: 0 losartan 50 mg tablet 50 mg PO QAM RF: 0 quetiapine 25 mg tablet 25 mg PO TID RF: 0 sennosides [senna] 8.6 mg tablet 8.6 mg PO QAM RF: 0 acetaminophen [Tylenol] 325 mg tablet 650 mg PO Q6H MDD 3 GRAMS/24 HOURS PRN (Reason: TEMP >100/PAIN) RF: 0 sertraline 50 mg tablet 75 mg PO QPM RF: 0 insulin aspart U-100 [Novolog Flexpen U-100 Insulin] 100 unit/mL (3 mL) Insulin Pen 10 unit subcut UD Qty: 15 RF: 0 Basaglar KwikPen U-100 Insulin 100 unit/mL (3 mL) Insulin Pen 20 unit SUBCUT QAM Qty: 15 RF: 0 Referrals Referrals: PHUONG CONN [Primary Care Provider] -
[2021-01-30 21:07] LABS: Hematocrit (blood only) 32.1 % (42-52); Hemoglobin 10.5 g/dL (14.0-18.0); Mean Corpuscular Hemoglobin 29.5 pg (25-34); Mean Corpuscular Hgb Conc 32.7 g/dL (32-36); Mean Corpuscular Volume 90.2 fL (80-100); Mean Platelet Volume 9.7 fL (7.4-10.4); Platelet Count 269 K/uL (130-400); RDW Coefficient of Variation 13.8 % (11.5-14.5); RDW Standard Deviation 45.7 fL (36.4-46.3); Red Blood Count 3.56 M/uL (4.7-6.1)
[2021-01-30 21:15] LABS: Base Excess VBG -0.3 mEq/L; Oxygen Saturation VBG 82.9 %; pH VBG 7.37 (7.36-7.41)
[2021-01-30 21:29] LABS: Alanine Aminotransferase 23 U/L (12-78); Albumin Globulin Ratio 0.9 (0.9-2); Aspartate Aminotransferase 13 U/L (15-37); Bilirubin,Total 0.2 mg/dl (0.2-1); Blood Urea Nitrogen 33 mg/dl (7-18); Calcium 8.1 mg/dl (8.5-10.1); Carbon Dioxide 26 mmol/L (21-32); Chloride 103 mmol/L (98-107); Est GFR (African American) 51.4 ml/min; Est GFR (Non-African American) 44.3 ml/min; Globulin 3.5 gm/dl (2.5-4.0); Glucose 479 mg/dl (70-99); Magnesium 2.2 mg/dl (1.8-2.4); Sodium 136 mmol/L (136-145); Total Protein 6.5 gm/dl (6.4-8.2)
[2021-01-30 21:37] LABS: Alkaline Phosphatase 100 U/L (45-117); Troponin I < 0.015 ng/ml (0-0.045)
[2021-01-30] MEDS ORDERED: LACTATED RINGER'S 1,000 ML IV ONE (21:37)
[2021-01-30] MEDS ORDERED: NovoLIN-R INSULIN PER UNIT CHARGE IV STA (21:37)
[2021-01-30 21:47] LABS: Beta-Hydroxybutyrate 1.04 mg/dl (0.2-2.81)
[2021-01-30 21:53] LABS: Basophils # (auto) 0.03 K/uL (0-0.2); Basophils % (auto) 0.7 %; Eosinophils # (auto) 0.15 K/uL (0-0.5); Eosinophils % (auto) 3.3 %; Lymphocytes # (auto) 2.31 K/uL (1.2-3.4); Lymphocytes % (auto) 50.2 %; Monocytes # (auto) 0.31 K/uL (0.11-0.59); Monocytes % (auto) 6.7 %; Neutrophils % (auto) 39.1 %
[2021-01-30] MEDS ORDERED: PHARMACY GLYCEMIC MGMT CONSULT STA (22:43)
[2021-01-31] MEDS ORDERED: MODERATE STRESS LEVEL ONE (00:04)
[2021-01-31] MEDS ORDERED: DC ALL PREVIOUSLY ORDERED DIABETES MEDS ONE (00:04)
[2021-01-31] MEDS ORDERED: POLYETHYLENE (MIRALAX) 17 GM PACK PO PRN (00:04)
[2021-01-31] MEDS ORDERED: INSULIN REGULAR 250 UNITS in SODIUM CHLORIDE 0.9% 247.5 ML IV SCH (00:04)
[2021-01-31] MEDS ORDERED: ONDANSETRON INJ 2 MG/ML 2 ML VIAL IV PRN (00:04)
[2021-01-31] MEDS ORDERED: INSULIN PROTOCOL GOAL RANGE ONE (00:04)
[2021-01-31] MEDS ORDERED: NITROGLYCERIN SL 0.4 MG/TAB TAB SL PRN (00:04)
[2021-01-31] MEDS ORDERED: ACETAMINOPHEN 325 MG TAB PO PRN (00:04)
[2021-01-31] MEDS ORDERED: PHARMACY GLYCEMIC MGMT CONSULT PRN (00:14)
[2021-01-31] MEDS ORDERED: GLUCOSE 40% GEL 15 GM TUBE PO PRN (00:30)
[2021-01-31] MEDS ORDERED: DEXTROSE 50% 50 ML SYRINGE IV PRN (00:30)
[2021-01-31] MEDS ORDERED: CARBOHYDRATES FOR HYPOGLYCEMIA PO PRN (00:30)
[2021-01-31] MEDS ORDERED: GLUCOSE 10 TABS/TUBE PO PRN (00:30)
[2021-01-31] MEDS ORDERED: GLUCAGON FOR INJ 1 MG VIAL IM PRN (00:30)
[2021-01-31] MEDS: METOPROLOL TARTRATE 25 MG TAB PO SCH ×3 (00:53→19:34)
[2021-01-31] MEDS: SODIUM CHLORIDE 0.9% 1000ML 1,000 ML IV SCH ×3 (00:53→16:54)
[2021-01-31] MEDS: INSULIN ASPART 100 UNITS/ML 3 ML PEN SC SCH ×5 (00:53→20:09)
[2021-01-31] MEDS ORDERED: INSULIN ASPART 100 UNITS/ML 3 ML PEN SC SCH (04:00)
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
[2021-01-31] MEDS: HEPARIN SOD 5,000 UNIT/0.5 ML VIAL SQ SCH ×3 (06:05→19:33)
[2021-01-31 06:50] LABS: Basophils # (auto) 0.02 K/uL (0-0.2); Basophils % (auto) 0.4 %; Eosinophils % (auto) 3.7 %; Hemoglobin 10.8 g/dL (14.0-18.0); Immature Granulocytes # (auto) 0.01 K/uL (0.00-0.02); Immature Granulocytes % (auto) 0.2 %; Lymphocytes # (auto) 2.21 K/uL (1.2-3.4); Lymphocytes % (auto) 40.4 %; Mean Corpuscular Hemoglobin 28.5 pg (25-34); Mean Corpuscular Hgb Conc 32.7 g/dL (32-36); Mean Corpuscular Volume 87.1 fL (80-100); Monocytes # (auto) 0.42 K/uL (0.11-0.59); Monocytes % (auto) 7.7 %; Neutrophils # (auto) 2.61 K/uL (1.4-6.5); Neutrophils % (auto) 47.6 %; Platelet Count 288 K/uL (130-400); RDW Coefficient of Variation 13.8 % (11.5-14.5); RDW Standard Deviation 43.8 fL (36.4-46.3); Red Blood Count 3.79 M/uL (4.7-6.1); White Blood Count 5.47 K/uL (4.8-10.8)
[2021-01-31 07:29] LABS: BUN Creatinine Ratio 24.3 (10-20); Blood Urea Nitrogen 25 mg/dl (7-18); Calcium 8.8 mg/dl (8.5-10.1); Carbon Dioxide 33 mmol/L (21-32); Chloride 108 mmol/L (98-107); Est GFR (African American) 85.5 ml/min; Est GFR (Non-African American) 73.8 ml/min; Glucose 161 mg/dl (70-99); Magnesium 2.2 mg/dl (1.8-2.4); Potassium 4.4 mmol/L (3.5-5.1); Sodium 140 mmol/L (136-145)
[2021-01-31 07:40] LABS: Estimated Average Glucose 217 mg/dl; Hemoglobin A1C 9.2 % (4.5-5.6)
[2021-01-31] MEDS: CHOLECALCIFEROL 1,000 UNITS 25 MCG TAB PO SCH (08:35)
[2021-01-31] MEDS: INSULIN GLARGINE SOLOSTAR 100 UNITS/ML 3 ML PEN SC SCH (08:35)
[2021-01-31] MEDS: ASPIRIN 81 MG ECTAB PO SCH (08:35)
[2021-01-31] MEDS: PANTOprazole 40 MG TAB PO SCH (08:36)
[2021-01-31] MEDS: LOSARTAN POTASSIUM 50 MG TAB PO SCH (08:36)
[2021-01-31] MEDS: SENNA 8.6 MG TAB PO SCH (08:37)
[2021-01-31] MEDS: QUEtiapine FUMARATE 25 MG TABLET PO SCH ×3 (08:37→19:34)
--- NOTE | 2021-01-31 13:20 | Electrocardiogram Report ---
Test Reason : Blood Pressure : / mmHG Vent. Rate : 068 BPM Atrial Rate : 068 BPM P-R Int : 172 ms QRS Dur : 094 ms QT Int : 414 ms P-R-T Axes : 042 059 037 degrees QTc Int : 440 ms Normal sinus rhythm Normal ECG When compared with ECG of 07-JAN-2021 00:07, No significant change was found Confirmed by Jeff Gonzales ([id number]) on 01/31/2021 1:20:45 PM [facility]erred By[facility] Confirmed By:Jeff Gonzales
[2021-01-31 14:40] LABS: Appearance Urine Clear (Clear); Bilirubin Urine Negative (Negative); Blood Urine Negative (Negative); Color Urine Yellow; Glucose Urine UA 2+ (Negative); Ketones Urine Negative (Negative); Leukocyte Esterase Urine Negative (Negative); Nitrite Urine Negative (Negative); Protein Urine Negative (Negative); Specific Gravity Urine 1.013 (1.000-1.030); Urobilinogen Urine Negative (Negative)
--- NOTE | 2021-01-31 14:46 | Pharmacy Report ---
Pharmacy Glycemic Short Note 2 - Date of Service January 31, 2021 - Glycemic Short BSG Results (Last 24 hours): 01/30/21 01/30/21 01/30/21 20:53 21:36 22:38 Glucose 479 H* POC Glucose 448 H* 278 H 01/31/21 01/31/21 01/31/21 00:00 04:03 05:48 Glucose 161 H POC Glucose 236 H 210 H 01/31/21 01/31/21 07:33 11:47 Glucose POC Glucose 173 H 254 H OUTPATIENT ANTIDIABETIC REGIMEN: * Basaglar 20 units qAM * Novolog TIDM ( units) * HbA1C = 9.2% (01/31/21) ASSESSMENT: * Mr Jaffe is a T1DM on insulin who is familiar to the glycemic service. * Patient admitted with hyperglycemia (admitting BSGs > 400 mg/dL). * Overnight patient received additional 8 units of insulin and fasting BSG was 173 mg/dL. * Per previous admissions 18 units of Lantus was too little and 20 units of Lantus was too aggressive so will start with lantus 19 units. Attempt Novolog that was previously successful. PLAN FOR INPATIENT GLYCEMIC CONTROL: * Basal insulin * Lantus 19 units SQ daily * Bolus insulin * NovoLog per scale ACHS or Q6hrs while NPO * Goal Range: Low 110 mg/dL - High 140 mg/dL * Correction Factor: 30 mg/dL/unit * Nutritional / Prandial insulin per carb ratio of 1 unit per 10 grams CHO consumed PLAN FOR DISCHARGE: * tbd
--- NOTE | 2021-01-31 15:37 | Hospitalist Progress Note ---
Date of Service January 31, 2021 Assessment & Plan (1) Hyperglycemia due to type 1 diabetes mellitus: Plan: DM type 1 Present on admission with elevating glucose 479 on admission Most recent hba1c 9.2 on 01/31/21 Pt was recently admitted for Hypoglycemia during last admission. Insulin was adjusted at that time Normal anion gap on admission Pharmacy on board for glycemic management Continue to hold hold diabetes med Continue monitor BS CHIVO mostly due to dehydration from Hyperglycemia Starting on IV fluid on admission Creatinine 1.03 today Will avoid nephrotoxic agents Continue monitor BMP Elevated Lactate Mostly due to Elevated glucose and CHIVO No sign of infection (WBC wnl and afebrile ) COVID 19 negative Continue monitor History of atrial fibrillation. Continue his metoprolol and Eliquis. History of hypertension: On losartan, metoprolol. We Continue monitor blood pressure. Hyperlipidemia. Continue statin. History of stroke on aspirin and statin. History of depression Continue Zoloft and Seroquel. History of cognitive disorder monitor for any delirium. Deep venous thrombosis prophylaxis on Eliquis. Code status Full code Admission and Anticipated Discharge Date Admission Date: January 30, 2021 Subjective Pt was seen and examined for follow up of hyperglycemia Lying in bed with no distress resting Tried to talk to patient and he said to leave him alone I went back to talk to him later, he was calm Everything I asked him, he answered no for them Nurse said that he refused some of his med denies any chest pain, palpitation, dizziness and SOB Physical Exam Physical Exam: General- No acute distress Head- atraumatic Eyes- PERRL, EOMI, ENT- oropharynx clear Neck- supple, no JVD Lungs- clear to auscultation Heart- regular rhythm; no murmur Abdomen- normal bowel sounds, soft, nontender Extremities- no calf tenderness, Status post left below-knee amputation. Neuro- alert, oriented x 3; PERRL, EOMI; no facial palsy; no dysarthria Skin- warm & dry Results & Data Results & Data ([facility]) Vital Signs (Past 12 Hours) Vital Signs Temp Pulse Pulse Resp BP Pulse Ox 01/31/21 15:00 36.6 C 62 18 132/48 L 99 01/31/21 12:10 36.9 C 67 18 188/76 H 99 01/31/21 10:16 60 01/31/21 07:00 36.5 C 61 18 108/81 100 01/31/21 03:39 36.5 C 64 18 161/92 H 98
[2021-01-31] MEDS ORDERED: SERTRALINE HCL 50 MG TABLET PO SCH (21:00)
[2021-01-31] MEDS ORDERED: ATORVASTATIN 10 MG TAB PO SCH (21:00)
[2021-02-01] MEDS: HEPARIN SOD 5,000 UNIT/0.5 ML VIAL SQ SCH ×2 (05:24→14:22)
[2021-02-01] MEDS: SODIUM CHLORIDE 0.9% 1000ML 1,000 ML IV SCH (05:34)
[2021-02-01 07:29] LABS: BUN Creatinine Ratio 20.9 (10-20); Calcium 8.8 mg/dl (8.5-10.1); Creatinine Clr Calc Pharmacy 70.7 ml/min; Est GFR (African American) 101.1 ml/min; Est GFR (Non-African American) 87.2 ml/min; Potassium 4.2 mmol/L (3.5-5.1)
[2021-02-01] MEDS: SENNA 8.6 MG TAB PO SCH (08:27)
[2021-02-01] MEDS: CHOLECALCIFEROL 1,000 UNITS 25 MCG TAB PO SCH (08:28)
[2021-02-01] MEDS: LOSARTAN POTASSIUM 50 MG TAB PO SCH (08:28)
[2021-02-01] MEDS: QUEtiapine FUMARATE 25 MG TABLET PO SCH ×2 (08:28→14:22)
[2021-02-01] MEDS: METOPROLOL TARTRATE 25 MG TAB PO SCH (08:28)
[2021-02-01] MEDS: PANTOprazole 40 MG TAB PO SCH (08:28)
[2021-02-01] MEDS: ASPIRIN 81 MG ECTAB PO SCH (08:28)
[2021-02-01] MEDS: INSULIN GLARGINE SOLOSTAR 100 UNITS/ML 3 ML PEN SC SCH (08:30)
[2021-02-01] MEDS: INSULIN ASPART 100 UNITS/ML 3 ML PEN SC SCH ×2 (08:30→12:39)
--- NOTE | 2021-02-01 13:18 | Pharmacy Report ---
Pharmacy Glycemic Short Note 2 - Date of Service February 01, 2021 - Glycemic Short BSG Results (Last 24 hours): 01/31/21 01/31/21 02/01/21 16:36 20:05 07:02 Glucose 103 H POC Glucose 198 H 118 H 02/01/21 02/01/21 07:30 11:15 Glucose POC Glucose 97 194 H OUTPATIENT ANTIDIABETIC REGIMEN: * Basaglar 20 units qAM * Novolog TIDM ( units) * HbA1C = 9.2% (01/31/21) ASSESSMENT: 02/01/21 * Patient's BSGs yesterday were [phone] mg/dL. Patient received Lantus 19 units plus 24 units of basal. * Fasting today was 103 mg/dL. * Continue Lantus 19 units. * Postprandial BSGs are reasonable so continue current regimen. BACKGROUND * Mr Jaffe is a T1DM on insulin who is familiar to the glycemic service. * Patient admitted with hyperglycemia (admitting BSGs > 400 mg/dL). * Overnight patient received additional 8 units of insulin and fasting BSG was 173 mg/dL. * Per previous admissions 18 units of Lantus was too little and 20 units of Lantus was too aggressive so will start with lantus 19 units. Attempt Novolog that was previously successful. PLAN FOR INPATIENT GLYCEMIC CONTROL: * Basal insulin * Lantus 19 units SQ daily * Bolus insulin * NovoLog per scale ACHS or Q6hrs while NPO * Goal Range: Low 110 mg/dL - High 140 mg/dL * Correction Factor: 30 mg/dL/unit * Nutritional / Prandial insulin per carb ratio of 1 unit per 10 grams CHO consumed PLAN FOR DISCHARGE: * Patient admitted with hyperglycemia. Patient currently receives less insulin inhouse than at detention. * Recommend * Lantus 20 units daily * Novolog 10 with breakfast/10 with lunch/ 7 with dinner. * Recommend initiation a correction insulin scale for BSG > 150 mg/dL in addition to Novolog already given with meals. * For BSG 151-200 mg/dL: 1 unit * For BSG 201-250 mg/dL: 2 unit * For BSG 251-300 mg/dL: 3 unit * For BSG 301-350 mg/dL: 4 unit * For BSG > 350 mg/dL call physician.
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
== END 2021-02-01 14:53 ==
LOC: ED 20:18 → 2N 22:43 → INTOOBSV 22:43 → 2N 23:27

== ENCOUNTER 2021-05-16 12:57 | Inpatient (IN) ==
--- NOTE | 2021-05-16 14:53 | Emergency Department Note ---
Impression & Plan Dysarthria, Left-sided muscle weakness, Borderline results on serologic testing for Lyme disease, Real time reverse transcriptase PCR positive for COVID-19 virus ED Provider Note NAME: JB MELTON AGE: 70 SEX: M ARRIVES VIA: Ambulance INFORMANT: Patient, ED PROVIDER(S): Lamonte Ventura MD CHIEF COMPLAINT: Weakness, Stroke. PLAN: Disposition: Admit MEDICAL DECISION MAKING: The patient is a pleasant 70-year-old gentleman with a past medical history of cognitive disorder, hypertension, diabetes, bipolar disorderwith history of noncompliance secondary to behavioral disturbances who presents to emergency department from his personal intermediate at [facility] for concern for stroke after being seen in emergency department yesterday for weakness and confusion where he had a negative CT scan of the head and was found to have a urinary tract infection treated with ceftriaxone and started on Keflex. The details of why the staff at [facility] feels he may have had a stroke is unclear. The patient himself is historically poor historian in the setting of his cognitive disorder and bipolar disorder. Patient himself has no complaints. When asked if he had any weakness he denies this. He reports he "did not have a stroke". I did review the patient's presentation with his sisters over the phone, one who has POA/decision making for the patient who acknowledges that the patient has not had capacity to make his own decisions. She did agree with sedation, if needed, to obtain diagnostic tests. Ultimately the patient did agree to his evaluation and sedation was not needed. On arrival patient is in no acute distress, afebrile stable vital signs. He appears clinically dry. His neurologic exam is difficult to assess given the patient's mood. He initially appeared to have a possible left lower facial droop but this was with the patient lying in his left lateral decubitus and when he was asked to smile again repeatedly he became frustrated and simply said "no". He did raise both eyebrows symmetrically however. His speech is somewhat dysarthric but in the setting of his bipolar disorder and being on risperidone. No overt focal weakness of extremities. EKG without overt acute ischemia. CXR negative for acute cardiopulmonary process. WBC and platelets wnl. H/H similar to prior range of values. Chemistry without acidosis. Electrolytes unremarkable. LFTs without significant abnormality. Troponin negative/undetectable. Lipase is note elevated. Lyme screen was equivocal for IgM antibody. Patient given CTX empirically for possible lyme with possibility of early [place] palsy. Covid-19 PCR was positive. Patient did have Covid-19 in November 2019 but had numerous negative PCRs since then. Thus, he result today likely represents new infection. CT head and CTA head and neck negative for ICH, ischemia, or severe narrowing or occlusion of large vessels.65% stenosis at the origin of the right internal carotid artery is noted. Given circumstances of challenge physical exam in setting of patient's BPD, with concern for CVA, reasonable to admit for further evaluation. Case was discussed with Dr. Apodaca, [facility], who will evaluate the patient for admission. Triage Nursing notes reviewed and agree them. Prior medical records reviewed Vital Signs: reviewed and remarkable for no significant abnormalities Differential diagnosis: Infection, dehydration, metabolic abnormality, hypo/hyperglycemia, electrolyte disturbance, anemia, hypoxia, cardiac sources, intracerebral event, toxicologic, neurologic, as well as other pathologies. ER treatment provided: See below. Diagnostics interpreted by me: ECG: NSR, 69 bpm, no ectopy, no overt ST elevation or depression. Cardiac Monitoring: An order for continuous cardiac monitoring was placed and demonstrated NSR, 69 bpm, no ectopy. Laboratory studies: See below Imaging studies: See below Consultation(s): Case was discussed with Dr. Apodaca, [place], who will evaluate the patient for admission. HPI: The patient is a pleasant 70-year-old gentleman with a past medical history of cognitive disorder, hypertension, diabetes, bipolar disorderwith history of noncompliance secondary to behavioral disturbances who presents to emergency department from his personal intermediate at [facility] for concern for stroke after being seen in emergency department yesterday for weakness and confusion where he had a negative CT scan of the head and was found to have a urinary tract infection treated with ceftriaxone and started on Keflex. The details of why the staff at [facility] feels he may have had a stroke is unclear. The patient himself is historically poor historian in the setting of his cognitive disorder and bipolar disorder. Patient himself has no complaints. When asked if he had any weakness he denies this. He reports he "did not have a stroke". I did review the patient's presentation with his sisters over the phone, one who has POA/decision making for the patient who acknowledges that the patient has not had capacity to make his own decisions. She did agree with sedation, if needed, to obtain diagnostic tests. Ultimately the patient did agree to his evaluation and sedation was not needed. ROS: See above HPI for pertinent positives & negatives. A total of 10 systems reviewed and were otherwise negative. PAST MEDICAL HISTORY:See Below PAST SURGICAL HISTORY:See Below FAMILY HISTORY:See Below SOCIAL HISTORY:See Below HOME MEDICATIONS:See Below ALLERGIES:See Below VITALS:See Below PHYSICAL EXAMINATION: GENERAL: Awake, alert, fatigue-appearing, in no distress HENT: Normocephalic, atraumatic. Oropharynx with dry mucous membranes and otherwise unremarkable. EYES: Normal conjunctiva. Sclera non-icteric. EOMI. No nystamgus. PEARRL. NECK: Supple. No nuchal rigidity. FROM. No JVD. RESPIRATORY: Clear to auscultation. CARDIAC: Regular rate, normal rhythm. Extremities warm and well perfused. Pulses equal. ABDOMEN: Soft, non-distended. No tenderness to palpation. No rebound or guarding. No masses. RECTAL: Deferred. MUSCULOSKELETAL: Chest examination reveals no tenderness. The back is symmetrical on inspection without obvious abnormality. There is no CVA tenderness to palpation. No joint edema. LOWER EXTREMITIES: Left lower extremity BKA. Otherwise no discoloration or te nderness. NEURO: Slight dysarthric speech. No overt aphasia. Equivocal left lower facial droop however question of compliance with exam. Eyebrow raise is symmetric bilaterally. Extremities with 4/5 strength and symmetric throughout. SKIN: No rash or jaundice noted. Lamonte Ventura MD Past Med/Surg History Medical History CHIVO (acute kidney injury) AMS (altered mental status) Bipolar 1 disorder Cognitive disorder COVID-19 Dehydration Depression Diabetes mellitus type 1 with complications HTN (hypertension) Hyperglycemia due to type 1 diabetes mellitus Paroxysmal A-fib Status post amputation of toe of left foot Vitamin D deficiency Surgical History Status post below-knee amputation of left lower extremity Family History Father Cancer Mother Alzheimer disease Grandfather (Maternal) Diabetes Other Family history unobtainable due to patient's condition Social History Smoking Status: Never smoker Preferred Language: Kiswahili Communication Ability: Impaired Teletype Operator Required: No Beliefs That Will Affect Care: None marital status: Single Current Living Situation: Residential Current Living Situation Comment: [facility] Feels Safe at Home: Yes Assistive Devices: Wheelchair Allergies Allergies Allergy/AdvReac Type Severity Reaction Status Date / Time No Known Allergies Allergy Verified 05/16/21 15:57 Home Meds Home Medications Medication Instructions Recorded Confirmed losartan 50 mg tablet 50 mg PO QAM 11/17/20 05/16/21 acetaminophen 325 mg tablet 650 mg PO Q6H PRN MDD 3 01/06/21 05/16/21 (Tylenol) HOURS sennosides 8.6 mg tablet (senna) 8.6 mg PO QAM 01/06/21 05/16/21 sertraline 50 mg tablet 75 mg PO QPM 01/06/21 05/16/21 dextrose 40 % oral gel 1 ea PO UD PRN 02/22/21 05/16/21 clonazepam 0.5 mg tablet 0.5 mg PO Q6H PRN 02/25/21 05/16/21 risperidone 0.25 mg tablet 0.25 mg PO BID 05/15/21 05/16/21 insulin aspar prot-insulin aspart See Rx Instructions .ROUTE .COMPLEX 05/16/21 05/16/21 100 unit/mL (70-30) subcutaneous pen (Novolog Mix 70-30FlexPen U-100) nut.tx.gluc.intol,lac-free,soy 1 ea PO BID 05/16/21 05/16/21 (Glucerna Shake) Previous Rx's Medication Instructions Recorded apixaban 5 mg tablet (Eliquis) 5 mg PO BID 30 Days #60 tab 04/27/20 aspirin 81 mg tablet,delayed 81 mg PO QAM 30 Days #30 tab 04/27/20 release (Aspirin Low Dose) atorvastatin 10 mg tablet 10 mg PO HS 30 Days #30 tab 04/27/20 cholecalciferol (vitamin D3) 25 1,000 unit PO QAM 30 Days #30 cap 04/27/20 mcg (1,000 unit) capsule metoprolol tartrate 25 mg tablet 25 mg PO BID 30 Days #60 tab 04/27/20 pantoprazole 40 mg tablet,delayed 40 mg PO QAM 30 Days #30 tab 04/27/20 release ondansetron 4 mg disintegrating 4 mg PO Q8H PRN #10 tab 07/28/20 tablet cephalexin 500 mg capsule 500 mg PO BID 7 Days #14 cap 05/15/21 Results & Data (ED) Vital Signs Vital Signs - 24 hr 05/16/21 12:59 05/16/21 14:59 05/16/21 15:23 Temperature Source Temporal Artery Scan Pulse Rate 100 H 64 Pulse Rate [Right Finger] 84 Pulse Rate from SpO2 Sensor Pulse Rhythm Regular Regular Pulse Rhythm [Right Finger] Pulse Strength Normal Pulse Strength [Right Finger] Respiratory Rate 20 18 16 Respiratory Effort / Characteristics Non-Labored Spontaneous Respiratory Depth Normal Normal Respiratory Pattern Regular Blood Pressure 119/54 L Blood Pressure [Right Arm] 109/57 L Blood Pressure Mean 75 Blood Pressure Mean [Right Arm] 74 Blood Pressure Position Sitting Blood Pressure Position [Right Arm] Pulse Oximetry 95 98 98 Oxygen Delivery Method Room Air Room Air Room Air Sepsis Recent Fever Within 48 Hours No Sepsis New/Unexplained Change in Mental Status No Sepsis Action Taken by Nursing No Action Required 05/16/21 15:26 05/16/21 17:10 05/16/21 17:30 Temperature Source Pulse Rate 72 72 Pulse Rate [Right Finger] 64 Pulse Rate from SpO2 Sensor Pulse Rhythm Pulse Rhythm [Right Finger] Regular Pulse Strength Pulse Strength [Right Finger] Normal Respiratory Rate 16 24 18 Respiratory Effort / Characteristics Non-Labored Respiratory Depth Normal Respiratory Pattern Blood Pressure 143/77 H 173/53 H Blood Pressure [Right Arm] 135/47 L Blood Pressure Mean 99 93 Blood Pressure Mean [Right Arm] 76 Blood Pressure Position Blood Pressure Position [Right Arm] Pulse Oximetry 97 99 99 Oxygen Delivery Method Room Air Sepsis Recent Fever Within 48 Hours Sepsis New/Unexplained Change in Mental Status Sepsis Action Taken by Nursing 05/16/21 18:00 05/16/21 18:30 05/16/21 18:37 Temperature Source Pulse Rate 68 69 Pulse Rate [Right Finger] 71 Pulse Rate from SpO2 Sensor 68 69 Pulse Rhythm Pulse Rhythm [Right Finger] Regular Pulse Strength Pulse Strength [Right Finger] Normal Respiratory Rate 12 15 20 Respiratory Effort / Characteristics Non-Labored Respiratory Depth Normal Respiratory Pattern Regular Blood Pressure 164/104 H Blood Pressure [Right Arm] 155/96 H Blood Pressure Mean 124 Blood Pressure Mean [Right Arm] 115 Blood Pressure Position Blood Pressure Position [Right Arm] Pulse Oximetry 98 99 99 Oxygen Delivery Method Room Air Sepsis Recent Fever Within 48 Hours Sepsis New/Unexplained Change in Mental Status Sepsis Action Taken by Nursing 05/16/21 19:00 05/16/21 19:30 05/16/21 19:56 Temperature Source Pulse Rate 72 72 Pulse Rate [Right Finger] 72 Pulse Rate from SpO2 Sensor 72 73 Pulse Rhythm Pulse Rhythm [Right Finger] Regular Pulse Strength Pulse Strength [Right Finger] Normal Respiratory Rate 13 14 16 Respiratory Effort / Characteristics Non-Labored Respiratory Depth Normal Respiratory Pattern Regular Blood Pressure Blood Pressure [Right Arm] 192/107 H Blood Pressure Mean Blood Pressure Mean [Right Arm] 135 Blood Pressure Position Blood Pressure Position [Right Arm] Pulse Oximetry 97 98 97 Oxygen Delivery Method Room Air Sepsis Recent Fever Within 48 Hours Sepsis New/Unexplained Change in Mental Status Sepsis Action Taken by Nursing 05/16/21 20:00 05/16/21 20:18 05/16/21 20:30 Temperature Source Pulse Rate 75 75 Pulse Rate [Right Finger] 74 Pulse Rate from SpO2 Sensor 75 76 Pulse Rhythm Pulse Rhythm [Right Finger] Regular Pulse Strength Pulse Strength [Right Finger] Normal Respiratory Rate 18 16 14 Respiratory Effort / Characteristics Non-Labored Spontaneous Respiratory Depth Normal Respiratory Pattern Regular Blood Pressure Blood Pressure [Right Arm] 104/86 Blood Pressure Mean Blood Pressure Mean [Right Arm] 92 Blood Pressure Position Blood Pressure Position [Right Arm] Lying Pulse Oximetry 97 100 99 Oxygen Delivery Method Room Air Sepsis Recent Fever Within 48 Hours Sepsis New/Unexplained Change in Mental Status Sepsis Action Taken by Nursing 05/16/21 20:56 05/16/21 21:00 05/16/21 21:30 Temperature Source Pulse Rate 73 71 Pulse Rate [Right Finger] 73 Pulse Rate from SpO2 Sensor 74 72 Pulse Rhythm Pulse Rhythm [Right Finger] Regular Pulse Strength Pulse Strength [Right Finger] Normal Respiratory Rate 16 15 16 Respiratory Effort / Characteristics Non-Labored Respiratory Depth Normal Respiratory Pattern Regular Blood Pressure Blood Pressure [Right Arm] 93/63 L Blood Pressure Mean Blood Pressure Mean [Right Arm] 73 Blood Pressure Position Blood Pressure Position [Right Arm] Lying Pulse Oximetry 98 98 99 Oxygen Delivery Method Room Air Sepsis Recent Fever Within 48 Hours Sepsis New/Unexplained Change in Mental Status Sepsis Action Taken by Nursing 05/16/21 21:45 05/16/21 22:00 05/16/21 22:03 Temperature Source Pulse Rate 72 Pulse Rate [Right Finger] 78 72 Pulse Rate from SpO2 Sensor 72 Pulse Rhythm Pulse Rhythm [Right Finger] Regular Pulse Strength Pulse Strength [Right Finger] Normal Respiratory Rate 20 13 16 Respiratory Effort / Characteristics Non-Labored Non-Labored Respiratory Depth Normal Normal Respiratory Pattern Blood Pressure 170/66 H Blood Pressure [Right Arm] 170/66 H Blood Pressure Mean 100 Blood Pressure Mean [Right Arm] 100 Blood Pressure Position Blood Pressure Position [Right Arm] Lying Pulse Oximetry 96 99 99 Oxygen Delivery Method Room Air Room Air Sepsis Recent Fever Within 48 Hours Sepsis New/Unexplained Change in Mental Status Sepsis Action Taken by Nursing 05/16/21 22:30 05/16/21 23:00 Temperature Source Pulse Rate 74 72 Pulse Rate [Right Finger] Pulse Rate from SpO2 Sensor 77 Pulse Rhythm Pulse Rhythm [Right Finger] Pulse Strength Pulse Strength [Right Finger] Respiratory Rate 14 16 Respiratory Effort / Characteristics Respiratory Depth Respiratory Pattern Blood Pressure 172/80 H Blood Pressure [Right Arm] Blood Pressure Mean 110 Blood Pressure Mean [Right Arm] Blood Pressure Position Blood Pressure Position [Right Arm] Pulse Oximetry 78 L Oxygen Delivery Method Sepsis Recent Fever Within 48 Hours Sepsis New/Unexplained Change in Mental Status Sepsis Action Taken by Nursing Laboratory Data Attestation: I reviewed the patient's lab results. Result diagrams: 05/16/21 17:14 05/16/21 17:14 Lab Results 05/16/21 05/16/21 05/16/21 Range/Units 17:14 17:14 17:14 WBC 7.84 (4.8-10.8) K/uL RBC 3.72 L (4.7-6.1) M/uL Hgb 10.8 L (14.0-18.0) g/dL Hct 32.4 L (42-52) % MCV 87.1 (80-100) fL MCH 29.0 (25-34) pg MCHC 33.3 (32-36) g/dL RDW Std Deviation 45.6 (36.4-46.3) fL RDW Coeff of Jace 14.4 (11.5-14.5) % Plt Count 297 (130-400) K/uL MPV 8.8 (7.4-10.4) fL Immature Gran % (Auto) 0.1 % Neut % (Auto) 65.6 % Lymph % (Auto) 24.0 % [place] % (Auto) 8.2 % Eos % (Auto) 1.7 % Baso % (Auto) 0.4 % Neut # (Auto) 5.15 (1.4-6.5) K/uL Lymph # (Auto) 1.88 (1.2-3.4) K/uL [place] # (Auto) 0.64 H (0.11-0.59) K/uL Eos # (Auto) 0.13 (0-0.5) K/uL Baso # (Auto) 0.03 (0-0.2) K/uL Immature Gran # (Auto) 0.01 (0.00-0.02) K/uL PT 9.8 (9.0-12.0) Seconds INR 1.0 (0.9-1.1) APTT 26.8 (21.0-31.0) Seconds PTT Ratio 1.0 Sodium 136 (136-145) mmol/L Potassium 4.4 (3.5-5.1) mmol/L Chloride 103 (98-107) mmol/L Carbon Dioxide 26 (21-32) mmol/L Anion Gap 7.0 (3-11) BUN 18 (7-18) mg/dl Creatinine 1.09 (0.6-1.4) mg/dl Est Cr Clr Drug Dosing 53.6 ml/min Est GFR ( Amer) 79.8 ml/min Est GFR (Non-Af Amer) 68.9 ml/min BUN/Creatinine Ratio 16.4 (10-20) Glucose 167 H (70-99) mg/dl Calcium 9.8 (8.5-10.1) mg/dl Phosphorus 3.4 (2.5-4.9) mg/dl Magnesium 2.4 (1.8-2.4) mg/dl Total Bilirubin 0.2 (0.2-1) mg/dl AST 8 L (15-37) U/L ALT 19 (12-78) U/L Alkaline Phosphatase 117 (45-117) U/L Troponin I < 0.015 (0-0.045) ng/ml Total Protein 7.6 (6.4-8.2) gm/dl Albumin 2.7 L (3.4-5.0) gm/dl Globulin 4.9 H (2.5-4.0) gm/dl Albumin/Globulin Ratio 0.6 L (0.9-2) Lipase 74 (73-393) U/L Lyme Disease IgG Ab (Negative) Lyme Disease IgM Ab (Negative) COVID-19 Eval Order SARS-CoV-2 (PCR) (Negative) 05/16/21 05/16/21 05/16/21 Range/Units 17:14 17:47 17:47 WBC (4.8-10.8) K/uL RBC (4.7-6.1) M/uL Hgb (14.0-18.0) g/dL Hct (42-52) % MCV (80-100) fL MCH (25-34) pg MCHC (32-36) g/dL RDW Std Deviation (36.4-46.3) fL RDW Coeff of Jace (11.5-14.5) % Plt Count (130-400) K/uL MPV (7.4-10.4) fL Immature Gran % (Auto) % Neut % (Auto) % Lymph % (Auto) % [place] % (Auto) % Eos % (Auto) % Baso % (Auto) % Neut # (Auto) (1.4-6.5) K/uL Lymph # (Auto) (1.2-3.4) K/uL [place] # (Auto) (0.11-0.59) K/uL Eos # (Auto) (0-0.5) K/uL Baso # (Auto) (0-0.2) K/uL Immature Gran # (Auto) (0.00-0.02) K/uL PT (9.0-12.0) Seconds INR (0.9-1.1) APTT (21.0-31.0) Seconds PTT Ratio Sodium (136-145) mmol/L Potassium (3.5-5.1) mmol/L Chloride (98-107) mmol/L Carbon Dioxide (21-32) mmol/L Anion Gap (3-11) BUN (7-18) mg/dl Creatinine (0.6-1.4) mg/dl Est Cr Clr Drug Dosing ml/min Est GFR ( Amer) ml/min Est GFR (Non-Af Amer) ml/min BUN/Creatinine Ratio (10-20) Glucose (70-99) mg/dl Calcium (8.5-10.1) mg/dl Phosphorus (2.5-4.9) mg/dl Magnesium (1.8-2.4) mg/dl Total Bilirubin (0.2-1) mg/dl AST (15-37) U/L ALT (12-78) U/L Alkaline Phosphatase (45-117) U/L Troponin I (0-0.045) ng/ml Total Protein (6.4-8.2) gm/dl Albumin (3.4-5.0) gm/dl Globulin (2.5-4.0) gm/dl Albumin/Globulin Ratio (0.9-2) Lipase (73-393) U/L Lyme Disease IgG Ab Negative (Negative) Lyme Disease IgM Ab Equivocal A (Negative) COVID-[address] Eval [address] Covid[address] at [facility] SARS-CoV-2 (PCR) POSITIVE A* (Negative) Administered Medications Discontinued Medications Sodium Chloride (Nss 1000ml) 1,000 mls @ 999 mls/hr IV .[id number] ONE Stop: 05/16/21 16:06 Last Infusion: 05/16/21 19:11 Dose: 0 mls/hr Documented by: [id number] Admin: 05/16/21 17:46 Dose: 999 mls/hr Documented by: [id number] Ceftriaxone Sodium (Rocephin) 2,000 mg in 70 mls @ 140 mls/hr IV NOW STA Stop: 05/16/21 20:12 Last Infusion: 05/16/21 20:17 Dose: 0 mls/hr Documented by: [id number] Admin: 05/16/21 19:54 Dose: 140 mls/hr Documented by: [id number] Ioversol (Optiray 320 125ml) 119 ml IV ONCE ONE Stop: 05/16/21 18:58 Last Admin: 05/16/21 18:57 Dose: 119 ml Documented by: [id number] Lorazepam (Lorazepam 2 Mg/Ml Vial (Im Use)) 0.5 mg IM NOW STA Stop: 05/16/21 16:36 Last Admin: 05/16/21 17:47 Dose: Not Given Documented by: [id number] Olanzapine (Olanzapine 10 Mg/2.1 Ml Sdv) 5 mg IM NOW STA Stop: 05/16/21 16:36 Last Admin: 05/16/21 17:47 Dose: Not Given Documented by: [id number] Imaging Data Radiologist's Impression: Head CT 05/16/21 15:[address] OF THE BRAIN; CT ANGIOGRAM OF THE BRAIN; CT ANGIOGRAM OF THE NECK CLINICAL HISTORY: Left facial droop. COMPARISON STUDY: CT of the brain dated 05/15/2021. TECHNIQUE: Unenhanced axial CT scan of the brain is performed. Subsequently, following the IV administration of 119 of Optiray 320, CT angiogram of the head and neck was performed from the aortic arch to the vertex. Images are reviewed in the axial, sagittal, and coronal planes. 3-D MIPS images are created and assessed. IV contrast was administered without complication. All measurements were calculated based on NASCET criteria. A dose lowering technique was utilized adhering to the principles of ALARA. CT DOSE: 1665.58 mGy.cm FINDINGS: Brain parenchyma: There is age-related involutional change noting moderate to advanced confluent subcortical and periventricular microangiopathic disease. A focus of left frontal encephalomalacia is consistent with a remote insult. There is no hemorrhage, mass effect, or evidence of acute territorial ischemia by CT criteria. There is no evidence of enhancing mass lesion on the angiogram phase images. The ventricles, sulci, and cisterns are prominent secondary to involutional change. Conde-white matter differentiation is preserved. No extra- axial fluid collection is seen. Thoracic aorta: Visualized portions of the thoracic aorta are normal in caliber. The aortic arch demonstrates standard 3-vessel anatomy. Right carotid arterial system: The right common carotid artery is widely patent. Advanced atherosclerotic plaque is seen in the carotid bulb and causes approximately 65% stenosis at the origin of the right internal carotid artery. The remainder of the right internal carotid artery is widely patent, as is the right external carotid artery. Left carotid arterial system: The left common carotid artery is widely patent, as are the left internal and external carotid arteries. Vertebral arteries: Widely patent bilaterally and codominant. Subclavian arteries: Widely patent bilaterally. Intracranial vasculature: There is atherosclerotic calcification of the cavernous carotid and vertebral arteries. The internal carotid arteries are pa tent at the skull base, as are the anterior and middle cerebral arteries bilaterally. The vertebrobasilar system and posterior cerebral arteries are widely patent. There is a small left posterior communicating artery. The vertebral arteries are codominant. There is no aneurysm, high-grade stenosis, or focal vessel cut off seen throughout the intracranial circulation. Jugular veins: Patent bilaterally. Dural sinuses: Patent. Lung apices: Partially visualized upper lobe lung parenchyma appears clear. Soft tissues: The visualized pharyngeal soft tissues are normal in appearance noting angiographic phase technique. The oropharyngeal airway appears widely patent. The salivary and thyroid glands are normal in appearance. No cervical lymphadenopathy is seen. Skeletal structures: The calvarium appears intact. The cervical spine is maintained noting multilevel spondylosis. No lytic or blastic lesion is seen. There is chronic posttraumatic deformity of the left clavicle. Orbits: The bony orbits are intact. Orbital contents are normal as visualized noting bilateral ocular lens implants. Sinuses and mastoids: Moderate mucosal thickening is noted in the right frontal sinus. Mild mucosal thickening is seen in the right ethmoid sinuses. There is trace mucosal thickening within the maxillary antra and the 1.5 cm retention cyst on the left. The mastoid air cells are well pneumatized. Dentition: There is a large periapical lucency with cortical breakthrough seen involving the left maxillary incisors. IMPRESSION: 1. There is no hemorrhage, mass effect, or evidence of acute territorial ischemia by CT criteria. 2. Unremarkable CT angiogram of the brain. 3. Atherosclerotic plaque causes approximately 65% stenosis at the origin of the right internal carotid artery. 4. Otherwise unremarkable CT angiogram of the neck. 5. There is a large periapical lucency with overlying cortical breakthrough involving the left maxillary incisors. Nonemergent follow-up with dentistry is recommended. 6. Additional findings as above. ACT 112: Negative or not required by law. Electronically signed by: Nabil Chau M.D. 05/16/2021 7:13 PM Head CTA 05/16/21 15:[address] OF THE BRAIN; CT ANGIOGRAM OF THE BRAIN; CT ANGIOGRAM OF THE NECK CLINICAL HISTORY: Left facial droop. COMPARISON STUDY: CT of the brain dated 05/15/2021. TECHNIQUE: Unenhanced axial CT scan of the brain is performed. Subsequently, following the IV administration of 119 of Optiray 320, CT angiogram of the head and neck was performed from the aortic arch to the vertex. Images are reviewed in the axial, sagittal, and coronal planes. 3-D MIPS images are created and assessed. IV contrast was administered without complication. All measurements were calculated based on NASCET criteria. A dose lowering technique was utilized adhering to the principles of ALARA. CT DOSE: 1665.58 mGy.cm FINDINGS: Brain parenchyma: There is age-related involutional change noting moderate to advanced confluent subcortical and periventricular microangiopathic disease. A focus of left frontal encephalomalacia is consistent with a remote insult. There is no hemorrhage, mass effect, or evidence of acute territorial ischemia by CT criteria. There is no evidence of enhancing mass lesion on the angiogram phase images. The ventricles, sulci, and cisterns are prominent secondary to involutional change. Conde-white matter differentiation is preserved. No extra- axial fluid collection is seen. Thoracic aorta: Visualized portions of the thoracic aorta are normal in caliber. The aortic arch demonstrates standard 3-vessel anatomy. Right carotid arterial system: The right common carotid artery is widely patent. Advanced atherosclerotic plaque is seen in the carotid bulb and causes approximately 65% stenosis at the origin of the right internal carotid artery. T he remainder of the right internal carotid artery is widely patent, as is the right external carotid artery. Left carotid arterial system: The left common carotid artery is widely patent, as are the left internal and external carotid arteries. Vertebral arteries: Widely patent bilaterally and codominant. Subclavian arteries: Widely patent bilaterally. Intracranial vasculature: There is atherosclerotic calcification of the cavernous carotid and vertebral arteries. The internal carotid arteries are patent at the skull base, as are the anterior and middle cerebral arteries bilaterally. The vertebrobasilar system and posterior cerebral arteries are widely patent. There is a small left posterior communicating artery. The vertebral arteries are codominant. There is no aneurysm, high-grade stenosis, or focal vessel cut off seen throughout the intracranial circulation. Jugular veins: Patent bilaterally. Dural sinuses: Patent. Lung apices: Partially visualized upper lobe lung parenchyma appears clear. Soft tissues: The visualized pharyngeal soft tissues are normal in appearance noting angiographic phase technique. The oropharyngeal airway appears widely patent. The salivary and thyroid glands are normal in appearance. No cervical lymphadenopathy is seen. Skeletal structures: The calvarium appears intact. The cervical spine is maintained noting multilevel spondylosis. No lytic or blastic lesion is seen. There is chronic posttraumatic deformity of the left clavicle. Orbits: The bony orbits are intact. Orbital contents are normal as visualized noting bilateral ocular lens implants. Sinuses and mastoids: Moderate mucosal thickening is noted in the right frontal sinus. Mild mucosal thickening is seen in the right ethmoid sinuses. There is trace mucosal thickening within the maxillary antra and the 1.5 cm retention cyst on the left. The mastoid air cells are well pneumatized. Dentition: There is a large periapical lucency with cortical breakthrough seen involving the left maxillary incisors. IMPRESSION: 1. There is no hemorrhage, mass effect, or evidence of acute territorial ischemia by CT criteria. 2. Unremarkable CT angiogram of the brain. 3. Atherosclerotic plaque causes approximately 65% stenosis at the origin of the right internal carotid artery. 4. Otherwise unremarkable CT angiogram of the neck. 5. There is a large periapical lucency with overlying cortical breakthrough involving the left maxillary incisors. Nonemergent follow-up with dentistry is recommended. 6. Additional findings as above. ACT 112: Negative or not required by law. Electronically signed by: Nabil Chau M.D. 05/16/2021 7:13 PM Neck CTA 05/16/21 15:[address] OF THE BRAIN; CT ANGIOGRAM OF THE BRAIN; CT ANGIOGRAM OF THE NECK CLINICAL HISTORY: Left facial droop. COMPARISON STUDY: CT of the brain dated 05/15/2021. TECHNIQUE: Unenhanced axial CT scan of the brain is performed. Subsequently, following the IV administration of 119 of Optiray 320, CT angiogram of the head and neck was performed from the aortic arch to the vertex. Images are reviewed in the axial, sagittal, and coronal planes. 3-D MIPS images are created and assessed. IV contrast was administered without complication. All measurements were calculated based on NASCET criteria. A dose lowering technique was utilized adhering to the principles of ALARA. CT DOSE: 1665.58 mGy.cm FINDINGS: Brain parenchyma: There is age-related involutional change noting moderate to advanced confluent subcortical and periventricular microangiopathic disease. A focus of left frontal encephalomalacia is consistent with a remote insult. There is no hemorrhage, mass effect, or evidence of acute territorial ischemia by CT criteria. There is no evidence of enhancing mass lesion on the angiogram phase images. The ventricles, sulci, and cisterns are prominent secondary to involutional change. Conde-white matter differentiation is preserved. No extra- axial fluid collection is seen. Thoracic aorta: Visualized portions of the thoracic aorta are normal in caliber. The aortic arch demonstrates standard 3-vessel anatomy. Right carotid arterial system: The right common carotid artery is widely patent. Advanced atherosclerotic plaque is seen in the carotid bulb and causes approximately 65% stenosis at the origin of the right internal carotid artery. The remainder of the right internal carotid artery is widely patent, as is the right external carotid artery. Left carotid arterial system: The left common carotid artery is widely patent, as are the left internal and external carotid arteries. Vertebral arteries: Widely patent bilaterally and codominant. Subclavian arteries: Widely patent bilaterally. Intracranial vasculature: There is atherosclerotic calcification of the cavernous carotid and vertebral arteries. The internal carotid arteries are patent at the skull base, as are the anterior and middle cerebral arteries bilaterally. The vertebrobasilar system and posterior cerebral arteries are widely patent. There is a small left posterior communicating artery. The vertebral arteries are codominant. There is no aneurysm, high-grade stenosis, or focal vessel cut off seen throughout the intracranial circulation. Jugular veins: Patent bilaterally. Dural sinuses: Patent. Lung apices: Partially visualized upper lobe lung parenchyma appears clear. Soft tissues: The visualized pharyngeal soft tissues are normal in appearance noting angiographic phase technique. The oropharyngeal airway appears widely patent. The salivary and thyroid glands are normal in appearance. No cervical lymphadenopathy is seen. Skeletal structures: The calvarium appears intact. The cervical spine is maintained noting multilevel spondylosis. No lytic or blastic lesion is seen. There is chronic posttraumatic deformity of the left clavicle. Orbits: The bony orbits are intact. Orbital contents are normal as visualized noting bilateral ocular lens implants. Sinuses and mastoids: Moderate mucosal thickening is noted in the right frontal sinus. Mild mucosal thickening is seen in the right ethmoid sinuses. There is trace mucosal thickening within the maxillary antra and the 1.5 cm retention cyst on the left. The mastoid air cells are well pneumatized. Dentition: There is a large periapical lucency with cortical breakthrough seen involving the left maxillary incisors. IMPRESSION: 1. There is no hemorrhage, mass effect, or evidence of acute territorial ischemia by CT criteria. 2. Unremarkable CT angiogram of the brain. 3. Atherosclerotic plaque causes approximately 65% stenosis at the origin of the right internal carotid artery. 4. Otherwise unremarkable CT angiogram of the neck. 5. There is a large periapical lucency with overlying cortical breakthrough involving the left maxillary incisors. Nonemergent follow-up with dentistry is recommended. 6. Additional findings as above. ACT 112: Negative or not required by law. Electronically signed by: Nabil Chau M.D. 05/16/2021 7:13 PM Discharge Plan Visit Data Chief Complaint: Neuro Symptoms/Deficit ED Provider: Lamonte Ventura Discharge Problem: Dysarthria, Left-sided muscle weakness, Borderline results on serologic testing for Lyme disease, Real time reverse transcriptase PCR positive for COVID-19 virus Patient Disposition: Admitted As Inpatient Discharge Instructions Interventions: ED Discharge Assessment Last Done: 05/17/21 01:38
[2021-05-16] MEDS ORDERED: SODIUM CHLORIDE 0.9% 1000ML 1,000 ML IV ONE (15:06)
--- NOTE | 2021-05-16 15:40 | XRay Report ---
XR chest 1V portable HISTORY: 70 years-old Male Chest Pain . Atypical chest pain COMPARISON: Chest radiograph 05/15/2021 TECHNIQUE: Supine AP view of the chest FINDINGS: Mild chronic interstitial coarsening. Linear subsegmental atelectasis/scarring of left lung base. No pneumothorax, pleural effusion, overt pulmonary edema or lobar airspace consolidation. Degenerative c hanges of the shoulders and spine. Chronic left clavicular fracture deformity with healed right-sided rib fractures. IMPRESSION: Unchanged interstitial coarsening without acute process. ACT 112: Negative or not required by law. The above report was generated using voice recognition software. It may contain grammatical, syntax o r spelling errors. Electronically signed by: Esteban Romero M.D. 05/16/2021 3:39 PM
[2021-05-16] MEDS ORDERED: OLANZapine 10 MG/2.1 ML SDV IM STA (16:35)
[2021-05-16] MEDS ORDERED: LORazepam 2 MG/ML VIAL (IM USE) IM STA (16:35)
[2021-05-16 17:26] LABS: Basophils # (auto) 0.03 K/uL (0-0.2); Basophils % (auto) 0.4 %; Eosinophils # (auto) 0.13 K/uL (0-0.5); Eosinophils % (auto) 1.7 %; Hematocrit (blood only) 32.4 % (42-52); Hemoglobin 10.8 g/dL (14.0-18.0); Immature Granulocytes # (auto) 0.01 K/uL (0.00-0.02); Immature Granulocytes % (auto) 0.1 %; Lymphocytes # (auto) 1.88 K/uL (1.2-3.4); Mean Corpuscular Hgb Conc 33.3 g/dL (32-36); Mean Corpuscular Volume 87.1 fL (80-100); Mean Platelet Volume 8.8 fL (7.4-10.4); Monocytes # (auto) 0.64 K/uL (0.11-0.59); Monocytes % (auto) 8.2 %; Neutrophils # (auto) 5.15 K/uL (1.4-6.5); Neutrophils % (auto) 65.6 %; Platelet Count 297 K/uL (130-400); RDW Coefficient of Variation 14.4 % (11.5-14.5); RDW Standard Deviation 45.6 fL (36.4-46.3); Red Blood Count 3.72 M/uL (4.7-6.1); White Blood Count 7.84 K/uL (4.8-10.8)
[2021-05-16 17:39] LABS: Partial Thromboplastin Time 26.8 Seconds (21.0-31.0); Prothrombin Time 9.8 Seconds (9.0-12.0)
[2021-05-16 17:42] LABS: Alanine Aminotransferase 19 U/L (12-78); Albumin Level 2.7 gm/dl (3.4-5.0); Aspartate Aminotransferase 8 U/L (15-37); BUN Creatinine Ratio 16.4 (10-20); Blood Urea Nitrogen 18 mg/dl (7-18); Calcium 9.8 mg/dl (8.5-10.1); Carbon Dioxide 26 mmol/L (21-32); Chloride 103 mmol/L (98-107); Creatinine Clr Calc Pharmacy 53.6 ml/min; Est GFR (African American) 79.8 ml/min; Est GFR (Non-African American) 68.9 ml/min; Glucose 167 mg/dl (70-99); Lipase 74 U/L (73-393); Magnesium 2.4 mg/dl (1.8-2.4); Potassium 4.4 mmol/L (3.5-5.1); Sodium 136 mmol/L (136-145)
[2021-05-16 17:47] LABS: Albumin Globulin Ratio 0.6 (0.9-2); Alkaline Phosphatase 117 U/L (45-117); Bilirubin,Total 0.2 mg/dl (0.2-1); Globulin 4.9 gm/dl (2.5-4.0); Phosphorus 3.4 mg/dl (2.5-4.9); Total Protein 7.6 gm/dl (6.4-8.2); Troponin I < 0.015 ng/ml (0-0.045)
[2021-05-16 18:17] LABS: Lyme Ab IgG w/WB Rflx Negative (Negative)
[2021-05-16 18:39] LABS: Lyme Ab IgM w/WB Rflx Equivocal (Negative)
[2021-05-16] MEDS ORDERED: OPTIRAY 320 125ml IV ONE (18:57)
--- NOTE | 2021-05-16 19:14 | CT Scan Report ---
UNENHANCED CT OF THE BRAIN; CT ANGIOGRAM OF THE BRAIN; CT ANGIOGRAM OF THE NECK CLINICAL HISTORY: Left facial droop. COMPARISON STUDY: CT of the brain dated 05/15/2021. TECHNIQUE: Unenhanced axial CT scan of the brain is performed. Subsequently, following the IV adminis tration of 119 of Optiray 320, CT angiogram of the head and neck was performed from the aortic arch t o the vertex. Images are reviewed in the axial, sagittal, and coronal planes. 3-D MIPS images are cre ated and assessed. IV contrast was administered without complication. All measurements were calculate d based on NASCET criteria. A dose lowering technique was utilized adhering to the principles of ALA RA. CT DOSE: 1665.58 mGy.cm FINDINGS: Brain parenchyma: There is age-related involutional change noting moderate to advanced confluent subc ortical and periventricular microangiopathic disease. A focus of left frontal encephalomalacia is con sistent with a remote insult. There is no hemorrhage, mass effect, or evidence of acute territorial i schemia by CT criteria. There is no evidence of enhancing mass lesion on the angiogram phase images. The ventricles, sulci, and cisterns are prominent secondary to involutional change. Conde-white matter differentiation is preserved. No extra-axial fluid collection is seen. Thoracic aorta: Visualized portions of the thoracic aorta are normal in caliber. The aortic arch demo nstrates standard 3-vessel anatomy. Right carotid arterial system: The right common carotid artery is widely patent. Advanced atheroscler otic plaque is seen in the carotid bulb and causes approximately 65% stenosis at the origin of the ri ght internal carotid artery. The remainder of the right internal carotid artery is widely patent, as is the right external carotid artery. Left carotid arterial system: The left common carotid artery is widely patent, as are the left international account representative al and external carotid arteries. Vertebral arteries: Widely patent bilaterally and codominant. Subclavian arteries: Widely patent bilaterally. Intracranial vasculature: There is atherosclerotic calcification of the cavernous carotid and vertebr al arteries. The internal carotid arteries are patent at the skull base, as are the anterior and midd le cerebral arteries bilaterally. The vertebrobasilar system and posterior cerebral arteries are wide ly patent. There is a small left posterior communicating artery. The vertebral arteries are codominan t. There is no aneurysm, high-grade stenosis, or focal vessel cut off seen throughout the intracrania l circulation. Jugular veins: Patent bilaterally. Dural sinuses: Patent. Lung apices: Partially visualized upper lobe lung parenchyma appears clear. Soft tissues: The visualized pharyngeal soft tissues are normal in appearance noting angiographic pha se technique. The oropharyngeal airway appears widely patent. The salivary and thyroid glands are nor mal in appearance. No cervical lymphadenopathy is seen. Skeletal structures: The calvarium appears intact. The cervical spine is maintained noting multilevel spondylosis. No lytic or blastic lesion is seen. There is chronic posttraumatic deformity of the lef t clavicle. Orbits: The bony orbits are intact. Orbital contents are normal as visualized noting bilateral ocular lens implants. Sinuses and mastoids: Moderate mucosal thickening is noted in the right frontal sinus. Mild mucosal t hickening is seen in the right ethmoid sinuses. There is trace mucosal thickening within the maxillar y antra and the 1.5 cm retention cyst on the left. The mastoid air cells are well pneumatized. Dentition: There is a large periapical lucency with cortical breakthrough seen involving the left max illary incisors. IMPRESSION: 1. There is no hemorrhage, mass effect, or evidence of acute territorial ischemia by CT criteria. 2. Unremarkable CT angiogram of the brain. 3. Atherosclerotic plaque causes approximately 65% stenosis at the origin of the right internal carot id artery. 4. Otherwise unremarkable CT angiogram of the neck. 5. There is a large periapical lucency with overlying cortical breakthrough involving the left maxill colin incisors. Nonemergent follow-up with dentistry is recommended. 6. Additional findings as above. ACT 112: Negative or not required by law. Electronically signed by: Nabil Chau M.D. 05/16/2021 7:13 PM
[2021-05-16] MEDS ORDERED: cefTRIAXone SODIUM 2,000 MG/70 ML BAG IV STA (19:43)
--- NOTE | 2021-05-17 00:19 | History and Physical Report ---
DATE OF ADMISSION: 05/16/2021. CHIEF COMPLAINT: Questionable stroke-like symptom. HISTORY OF PRESENT ILLNESS: A 70-year-old male with past medical history significant for type 1 diabetes, history of paroxysmal atrial fibrillation, history of DKA, history of depression, history of mood disorder, chronic anemia, baseline hemoglobin 10-11, hypertension, bipolar disorder, left above-knee amputation. Currently in [facility]. The patient had COVID in 11/2019. Patient here yesterday because of some confusion, weakness and CT of the head was negative and is found to have UTI and he was given Rocephin and discharged on Keflex. Today, [facility] felt that he might have had a stroke and the patient was brought in here. The patient denies that he had a stroke. The patient has some questionable left facial droop, but is able to raise his brows. His CT of the head and CTA of the head and neck are okay. The patient is somewhat poor historian, alert and awake, knows his name, tell his date of , could not tell the time correctly. The patient denies any fever, chest pain, headache, blurred visions, no nausea, no vomiting, no abdominal pain. Normal bowel and bladder movements. He says he walks with a cane and sometimes he walks with a walker.In the ER, COVID came back as positive. As per the sister who has power of compliance attorney he had COVID in 11/2019 and after that he had vaccines. He did not had a booster shot yet. Lyme screen , IgM was equivocal. . Currently, resting comfortably and hemodynamically stable. ALLERGIES: No known drug allergies. PAST MEDICAL HISTORY: As mentioned above. PAST SURGICAL HISTORY: Left above-knee amputations. FAMILY HISTORY: Could not obtain at this time. SOCIAL HISTORY: As per records, nonsmoker, no alcohol use. Currently lives at [facility]. REVIEW OF SYSTEMS: As per HPI, could not get complete review of systems as the patient is somewhat of a poor historian. MEDICATIONS: The patient is on Tylenol 650 mg p.o. q. 6 hours p.r.n., aspirin 81 mg p.o. daily, atorvastatin 10 mg p.o. at bedtime, Keflex 500 mg p.o. b.i.d., vitamin D 1000 units p.o. a.m., clonazepam 0.5 mg p.o. q. 6 hours p.r.n., Eliquis 5 mg p.o. b.i.d., NovoLog mix 70/30 as directed, losartan 50 mg p.o. a.m., metoprolol tartrate 25 mg p.o. b.i.d., Glucerna shake 1 p.o. b.i.d., Zofran 4 mg p.o. 8 hours p.r.n., Protonix 40 mg p.o. a.m., risperidone 0.25 mg p.o. b.i.d., Senna 8.6 mg p.o. a.m., sertraline 75 mg p.o. a.m. PHYSICAL EXAMINATION: GENERAL: The patient is alert and awake, not in acute distress. VITAL SIGNS: Temperature afebrile, pulse 72, respirations 16, blood pressure 117/66, oxygen 99% on room air. HEENT: Pupils equal, round and reactive to light. Oral mucosa moist. NECK: No JVD or neck masses. CARDIOVASCULAR: S1 and S2 heard. Regular rate and rhythm. No murmur, no gallop. RESPIRATORY SYSTEM: Normal AP diameter possible. No accessory muscle use. No wheezing, no crackles. ABDOMEN: Soft, bowel sounds present, nontender, no distention. CENTRAL NERVOUS SYSTEM: Alert and awake, oriented to name only currently, questionable left facial droop. Power 5/5 in all extremities except 4/5 in left upper extremity. Obeys simple commands. Speech is clear. EXTREMITIES: No edema, no erythema. LABORATORY DATA: WBC 7.8, hemoglobin 10.8, hematocrit 32.4, platelets 297. PT 9.8, INR 1, APTT 26.8. Sodium 136, potassium 4.4, chloride 103, bicarb 26, BUN 18, creatinine 1.09, serum glucose 167, calcium 9.8, phosphorus 3.4, magnesium 2.4, total bilirubin 0.2, AST 8, ALT 19, alkaline phosphatase 117. Troponin I less than 0.015. Lipase 74. Lyme screen positive for equivocal IgM. SARS-CoV-2 PCR positive. IMAGING DATA: Chest x-ray, no acute process. Head and neck CTA, atherosclerotic plaque with approximately 65% stenosis of the origin of the right internal carotid artery, large periapical lucency with overlying cortical breakthrough in one on the left maxillary incisors, nonemergent followup with dentistry is recommended. CT of the head, no acute findings. EKG: Normal sinus rhythm with rate of 69, no significant change was found. ASSESSMENT AND PLAN: This 70-year-old male presents with questionable stroke- like symptom. 1. Questionable stroke-like symptom, questionable left facial droop and confusion. The patient has history of bipolar. Initial workup with a CT of the head and CTA of the head and neck is unremarkable. We will order MRI scan. The patient is on Eliquis and aspirin, monitor in the LOG607, Neurology consult, Speech evaluation. Echocardiogram. 2. COVID positive. He had COVID in 11/2019 and as per the sister, he also had COVID vaccine, did not receive the booster yet. The patient is currently asymptomatic. After 12/10/2020 infection, he has multiple negative PCRs and again positive today, possible re-infection. We will do airborne isolation. 3. History of diabetes. Continue his home NovoLog 70/30 at reduced dose , insulin sliding scale, monitor the blood sugars. 4. History of atrial fibrillation. Continue his metoprolol and Eliquis. 5. History of hypertension: On losartan, metoprolol. Monitor the blood pressure. 6. History of hyperlipidemia, on statin. 7. History of stroke in the past on aspirin and statin. 8. History of depression, on Zoloft and risperidone and Klonopin. 9. Cognitive disorder, monitor for delirium. 10. UTI and possible lyme disease. On Rocephin. Follow final labs. 11. Deep venous thrombosis prophylaxis, on Eliquis. DISPOSITION: Monitor in LOG607. PT/OT prior to discharge. Social service to help with discharge plan. CODE STATUS: DNR/DNI as per discussion with the sister who is the power of compliance attorney. Job ID: [id number] [facility] CENTERCel[facility]
[2021-05-17] MEDS ORDERED: ACETAMINOPHEN 325 MG TAB PO PRN (01:33)
[2021-05-17] MEDS ORDERED: PHARMACIST DISCHARGE MED REC CONSULT PRN (01:33)
[2021-05-17] MEDS ORDERED: clonazePAM 0.5 MG TAB PO PRN (01:33)
[2021-05-17] MEDS ORDERED: GLUCOSE 40% GEL 15 GM TUBE PO PRN ×2 (01:33→02:30)
[2021-05-17] MEDS ORDERED: NITROGLYCERIN SL 0.4 MG/TAB TAB SL PRN (01:33)
[2021-05-17] MEDS ORDERED: GLUCAGON FOR INJ 1 MG VIAL IM PRN (02:30)
[2021-05-17] MEDS ORDERED: GLUCOSE 10 TABS/TUBE PO PRN (02:30)
[2021-05-17] MEDS: SODIUM CHLORIDE 0.9% 1000ML 1,000 ML IV SCH ×2 (05:14→17:18)
[2021-05-17] MEDS ORDERED: INFLUENZA VACCINE HIGH DOSE PF 65+ 0.7 ML SYR IM ONE (06:00)
[2021-05-17 08:21] LABS: Basophils # (auto) 0.04 K/uL (0-0.2); Basophils % (auto) 0.6 %; Hematocrit (blood only) 31.6 % (42-52); Hemoglobin 10.3 g/dL (14.0-18.0); Lymphocytes # (auto) 1.65 K/uL (1.2-3.4); Lymphocytes % (auto) 24.6 %; Mean Corpuscular Hemoglobin 28.5 pg (25-34); Mean Corpuscular Hgb Conc 32.6 g/dL (32-36); Mean Corpuscular Volume 87.5 fL (80-100); Mean Platelet Volume 8.8 fL (7.4-10.4); Monocytes # (auto) 0.49 K/uL (0.11-0.59); Monocytes % (auto) 7.3 %; Neutrophils # (auto) 4.32 K/uL (1.4-6.5); Neutrophils % (auto) 64.5 %; Platelet Count 288 K/uL (130-400); RDW Coefficient of Variation 14.1 % (11.5-14.5); RDW Standard Deviation 45.4 fL (36.4-46.3); Red Blood Count 3.61 M/uL (4.7-6.1)
[2021-05-17 08:52] LABS: BUN Creatinine Ratio 15.2 (10-20); Calcium 9.4 mg/dl (8.5-10.1); Creatinine Clr Calc Pharmacy 75.8 ml/min; Est GFR (African American) 107.3 ml/min; Est GFR (Non-African American) 92.6 ml/min; Magnesium 2.3 mg/dl (1.8-2.4); Potassium 3.8 mmol/L (3.5-5.1)
--- NOTE | 2021-05-17 08:57 | Electrocardiogram Report ---
Test Reason : Blood Pressure : / mmHG Vent. Rate : 069 BPM Atrial Rate : 069 BPM P-R Int : 156 ms QRS Dur : 090 ms QT Int : 416 ms P-R-T Axes : 064 045 047 degrees QTc Int : 445 ms Normal sinus rhythm Normal ECG When compared with ECG of 15-MAY-2021 15:15, No significant change was found Confirmed by Gaston Novak ([id number]) on 05/17/2021 8:56:57 AM Referred By: [facility] Confirmed By:Rahat Novak
[2021-05-17] MEDS ORDERED: NUT TX GLUC INTOL LAC FREE SOY PO SCH (09:00)
[2021-05-17] MEDS: risperiDONE 0.5 MG TABLET PO SCH ×2 (09:23→12:11)
[2021-05-17] MEDS: APIXABAN 5 MG TABLET PO SCH ×2 (09:23→20:51)
[2021-05-17] MEDS: SENNA 8.6 MG TAB PO SCH (09:24)
[2021-05-17] MEDS: CHOLECALCIFEROL 1,000 UNITS 25 MCG TAB PO SCH (09:24)
[2021-05-17] MEDS: PANTOprazole 40 MG TAB PO SCH (09:24)
[2021-05-17] MEDS: METOPROLOL TARTRATE 25 MG TAB PO SCH ×2 (09:24→20:52)
[2021-05-17] MEDS: ASPIRIN 81 MG ECTAB PO SCH (09:24)
[2021-05-17] MEDS: LOSARTAN POTASSIUM 50 MG TAB PO SCH (09:24)
[2021-05-17] MEDS: INSULIN 70% ASPART PROTAMINE/30% ASPART SC SCH ×2 (09:29→17:28)
[2021-05-17] MEDS: INSULIN ASPART 100 UNITS/ML 3 ML PEN SC SCH ×4 (09:30→21:37)
[2021-05-17 10:05] LABS: Estimated Average Glucose 229 mg/dl; Hemoglobin A1C 9.6 % (4.5-5.6)
--- NOTE | 2021-05-17 12:29 | Neurology Consultation ---
Date of Consultation May 17, 2021 Assessment & Plan (1) Weakness: 1. CTA head/neck- 65% stenosis 2. MRI brain - r/o stroke 3. continue aspirin 81 mg and Eliquis 5 mg BID 4. TTE if not already done 5. PT/OT for discharge needs 6. fall precautions Supervising Physician Co-Signing Physician Notes I have seen and discussed above patient with Dr Denys Woodard, neurology Unfortunately it is difficult to determine without knowing this man's baseline status whether or not the deficits I see on exam today are new or subacute or as I suspect chronic and it is difficult to establish whether or not the symptoms reported by the staff at his extended care unit reflect the effects of his urinary tract infection or his Covid reinfection with parainfectious exacerbation of underlying chronic neurologic symptoms He certainly is at risk for recurrent strokes despite being on what I would assume is adequate anticoagulation with a novel agent and low-dose aspirin but these do not confer 100% immunity from recurrent events Right now we really require an MRI scan to establish whether or not there is a new stroke but to some degree the issue is academic as I really would have a hard time justify increasing his antiplatelet coverage in conjunction with his novel anticoagulant. He does need an echocardiogram to establish whether or not there are some valvular vegetations or other potential source of emboli beyond the atrial fibrillation We will follow up tomorrow by chart review possibly reexamination depending on the findings on MRI which hopefully will be performed sometime in the next 24 hours and the echocardiogram Denys Woodard MD History of Present Illness Reason for Consultation: cva? Requesting Physician: Roland Boateng MD Attending Physician: Roland Boateng MD History of Present Illness Bhavin is a 70 year old male with PMH-DM 1, pAfib, DKA, depression, mood disorder, chronic anemia, baseline hemoglobin 10-11, HTN, bipolar disorder, left above-knee amputation. Who lives at [facility].He had COVID in 11/2019. He presents to [facility] 05/16/2021 because of some confusion, weakness and CT of the head was negative and is found to have UTI and he was given Rocephin and discharged on Keflex. Today, [facility] felt that he might have had a stroke so he was brought in.He has some questionable left facial droop, but is able to raise his brows. His CT of the head and CTA of the head and neck are okay.He walks with a cane and sometimes he walks with a walker.In the ER AKASH came back as positive. As per the sister who has power of ip technology transactions attorney he had COVID in 11/2019 and after that he had vaccines. He did not had a booster shot yet.. Allergies Allergy/AdvReac Type Severity Reaction Status Date / Time No Known Allergies Allergy Verified 05/16/21 15:57 Home Medications Medication Instructions Recorded Confirmed Type apixaban 5 mg tablet (Eliquis) 5 mg PO BID 30 Days #60 tab 04/27/20 05/16/21 Rx aspirin 81 mg tablet,delayed 81 mg PO QAM 30 Days #30 tab 04/27/20 05/16/21 Rx release (Aspirin Low Dose) atorvastatin 10 mg tablet 10 mg PO HS 30 Days #30 tab 04/27/20 05/16/21 Rx cholecalciferol (vitamin D3) 25 1,000 unit PO QAM 30 Days #30 cap 04/27/20 05/16/21 Rx mcg (1,000 unit) capsule metoprolol tartrate 25 mg tablet 25 mg PO BID 30 Days #60 tab 04/27/20 05/16/21 Rx pantoprazole 40 mg tablet,delayed 40 mg PO QAM 30 Days #30 tab 04/27/20 05/16/21 Rx release ondansetron 4 mg disintegrating 4 mg PO Q8H PRN #10 tab 07/28/20 05/16/21 Rx tablet losartan 50 mg tablet 50 mg PO QAM 11/17/20 05/16/21 History acetaminophen 325 mg tablet 650 mg PO Q6H PRN MDD 3 GRAMS/24 01/06/21 05/16/21 History (Tylenol) HOURS sennosides 8.6 mg tablet (senna) 8.6 mg PO QAM 01/06/21 05/16/21 History sertraline 50 mg tablet 75 mg PO QPM 01/06/21 05/16/21 History dextrose 40 % oral gel 1 ea PO UD PRN 02/22/21 05/16/21 History clonazepam 0.5 mg tablet 0.5 mg PO Q6H PRN 02/25/21 05/16/21 History cephalexin 500 mg capsule 500 mg PO BID 7 Days #14 cap 05/15/21 05/16/21 Rx risperidone 0.25 mg tablet 0.25 mg PO BID 05/15/21 05/16/21 History insulin aspar prot-insulin aspart See Rx Instructions .ROUTE .COMPLEX 05/16/21 05/16/21 History 100 unit/mL (70-30) subcutaneous pen (Novolog Mix 70-30FlexPen U-100) nut.tx.gluc.intol,lac-free,soy 1 ea PO BID 05/16/21 05/16/21 History (Glucerna Shake) Patient History Medical History CHIVO (acute kidney injury) AMS (altered mental status) Bipolar 1 disorder Cognitive disorder COVID-19 Dehydration Depression Diabetes mellitus type 1 with complications HTN (hypertension) Hyperglycemia due to type 1 diabetes mellitus Paroxysmal A-fib Status post amputation of toe of left foot Vitamin D deficiency Surgical History Status post below-knee amputation of left lower extremity Family History Father Cancer Mother Alzheimer disease Grandfather (Maternal) Diabetes Other Family history unobtainable due to patient's condition Social History Smoking Status: Unknown if ever smoked Preferred Language: Afghan Communication Ability: Impaired Compliance Monitor Required: No Beliefs That Will Affect Care: None marital status: Single Current Living Situation: Senior Living Current Living Situation Comment: [facility] Feels Safe at Home: Yes Assistive Devices: Wheelchair Review of Systems Review of Systems: He denies any recent fever sweats chills urinary frequency and denies any new neurologic deficits and seems unaware that his speech is actually slurred and that he has a left hemiparesis. Certainly denies any recent symptoms of Covid such as loss of sense of taste or smell cough shortness of breath myalgias but again I am not sure how reliable his recitation of his symptoms might be Physical Exam Physical Exam: His neurologic examination reveals blood pressure 183/92 pulse 79 respirations 16 he is afebrile has an O2 saturation of 99% on room air and looks comfortable He has a dysarthric speech pattern is superficially oriented but again I am not sure how reliable his history is that he seems unaware that his speech is slurred he is unaware of any prior cerebrovascular events she had his CT scan shows 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 possibly embolic infarctions involving the deep subcortical white matter He has a left upper motor neuron facial asymmetry neglect of left visual field stimuli false localization of stimuli to the right side but no facial numbness and normal eye movements He has a left hemiparesis with increased tone is mild to moderate in severity and some clumsiness of the right arm as well and he tends to neglect his left s ivonne to some degree and has an upper motor neuron global weakness of left arm and leg muscles without atrophy or fasciculations and with a reduced facility rapid repetitive motions compatible with an upper motor neuron lesion of indeterminate age but likely chronic I did not test reflexes as I did not bring my instruments into the [facility] area Kavita sign is positive on the left and the left toe signs extensor and I think the right may be as well Sensory examination reveals no loss of primary sensation if he admits to but he does have a peculiar neglect of left-sided stimuli falsely localizing them to the right and bilateral simultaneous presentation Results & Data ([facility]) Vital Signs (Past 12 Hours) Vital Signs Temp Pulse Pulse Resp BP BP Pulse Ox 05/17/21 11:48 36.9 C 82 17 187/82 H 99 05/17/21 06:06 76 05/17/21 05:18 37 C 75 16 148/67 H 99 05/17/21 04:30 71 14 174/70 H 05/17/21 04:00 75 16 189/83 H 05/17/21 03:30 78 11 L 05/17/21 03:00 74 13 178/65 H 05/17/21 02:30 74 13 173/77 H 05/17/21 02:00 77 15 196/69 H 05/17/21 01:38 77 18 161/63 H 97 05/17/21 01:30 76 13 05/17/21 01:00 75 15 187/63 H 05/17/21 00:30 72 12 185/72 H Laboratory Results Abnormal lab results 05/16/21 05/16/21 05/16/21 Range/Units 17:14 17:14 17:14 RBC 3.72 L (4.7-6.1) M/uL Hgb 10.8 L (14.0-18.0) g/dL Hct 32.4 L (42-52) % Reeves # (Auto) 0.64 H (0.11-0.59) K/uL Glucose 167 H (70-99) mg/dl POC Glucose (70-99) mg/dl Hemoglobin A1c (4.5-5.6) % AST 8 L (15-37) U/L Albumin 2.7 L (3.4-5.0) gm/dl Globulin 4.9 H (2.5-4.0) gm/dl Albumin/Globulin Ratio 0.6 L (0.9-2) Lyme Disease IgM Ab Equivocal A (Negative) SARS-CoV-2 (PCR) (Negative) 05/16/21 05/17/21 05/17/21 Range/Units 17:47 07:33 08:03 RBC (4.7-6.1) M/uL Hgb (14.0-18.0) g/dL Hct (42-52) % Reeves # (Auto) (0.11-0.59) K/uL Glucose (70-99) mg/dl POC Glucose 112 H (70-99) mg/dl Hemoglobin A1c 9.6 H (4.5-5.6) % AST (15-37) U/L Albumin (3.4-5.0) gm/dl Globulin (2.5-4.0) gm/dl Albumin/Globulin Ratio (0.9-2) Lyme Disease IgM Ab (Negative) SARS-CoV-2 (PCR) POSITIVE A* (Negative) 05/17/21 05/17/21 05/17/21 Range/Units 08:03 08:03 11:34 RBC 3.61 L (4.7-6.1) M/uL Hgb 10.3 L (14.0-18.0) g/dL Hct 31.6 L (42-52) % Reeves # (Auto) (0.11-0.59) K/uL Glucose 112 H (70-99) mg/dl POC Glucose 113 H (70-99) mg/dl Hemoglobin A1c (4.5-5.6) % AST (15-37) U/L Albumin (3.4-5.0) gm/dl Globulin (2.5-4.0) gm/dl Albumin/Globulin Ratio (0.9-2) Lyme Disease IgM Ab (Negative) SARS-CoV-2 (PCR) (Negative) Diagnostic Findings CT head/CTA head/neck-There is no hemorrhage, mass effect, or evidence of acute territorial ischemia by CT criteria. Unremarkable CT angiogram of the brain. Atherosclerotic plaque causes approximately 65% stenosis at the origin of the right internal carotid artery. Otherwise unremarkable CT angiogram of the neck. There is a large periapical lucency with overlying cortical breakthrough involving the left maxillary incisors. Nonemergent follow-up with dentistry is recommended.
[2021-05-17] MEDS ORDERED: INSULIN 70% ASPART PROTAMINE/30% ASPART SC SCH (16:30)
--- NOTE | 2021-05-17 18:24 | Hospitalist Progress Note ---
Date of Service May 17, 2021 Assessment & Plan (1) Stroke-like symptoms: Plan: Has had ongoing weakness and was sent in from [facility] with possible strokelike symptoms Difficult to find out any significant neuro deficit by history and her examination Appreciate neurology input and recommendation We will get MRI and echocardiogram We will continue aspirin and statin for now (2) Weakness: Plan: Has weakness which has been chronic (3) Paroxysmal A-fib: Plan: Rate is controlled Continue Eliquis (4) Cognitive disorder: (5) Uncontrolled type 1 diabetes mellitus with hyperglycemia: Plan: Continue current insulin And will put him on sliding scale insulin coverage (6) COVID-19: Plan: He had Covid infection and november of 2019 Has had Covid vaccine but no booster yet He has had multiple negative Covid test in the past Today he has been positive and remains asymptomatic (7) HTN (hypertension): Plan: Blood pressure on the upper side (8) Bipolar 1 disorder: Plan: And will maintain that DVT prophylaxis On Eliquis CODE STATUS DNR/DNI Admission and Anticipated Discharge Date Admission Date: May 16, 2021 Subjective 05/17/2021 The patient was seen and examined in medical telemetry unit He does not have any complaints Review of Systems Review of Systems: Unobtainable due to cognitive status Physical Exam Physical Exam: Any acute distress Constitutional: well developed and well nourished; not ill appearing Eyes: PERRL, conjunctivae normal, anicteric sclerae ENMT: external ear and nose normal, oropharynx normal Neck: trachea midline, no thyromegaly Respiratory: normal respiratory effort, lungs clear to auscultation Cardiovascular: Rate/Rhythm: regular rate and regular rhythm; not tachycardic Heart Sounds: normal S1 and normal S2; no murmur Gastrointestinal (Abdomen): Inspection/Auscultation: normal bowel sounds; abdomen not distended Percussion/Palpation: abdomen soft; abdomen nontender Musculoskeletal: No acute arthritis. Has left BKA Neurologic: Alert and awake. Dysarthric. Generally weak. Full neuro examination is not possible Lymphatic: no cervical or axillary lymphadenopathy Results & Data Results & Data ([facility]) Vital Signs (Past 12 Hours) Vital Signs Temp Pulse Pulse Resp BP Pulse Ox 05/17/21 14:41 79 05/17/21 14:27 36.6 C 85 16 183/92 H 99 05/17/21 11:48 36.9 C 82 17 187/82 H 99 05/17/21 06:15 79 Laboratory Results Short CBC 05/17/21 Range/Units 08:03 WBC 6.70 (4.8-10.8) K/uL Hgb 10.3 L (14.0-18.0) g/dL Hct 31.6 L (42-52) % Plt Count 288 (130-400) K/uL BMP 05/17/21 08:03 Sodium 138 Potassium 3.8 Chloride 106 Carbon Dioxide 23 BUN 12 Creatinine 0.77 D Glucose 112 H Calcium 9.4 Medications Administered Current Inpatient Medications Acetaminophen (Acetaminophen 325 Mg Tab) 650 mg PO Q4H PRN PRN Reason: Pain or Fever Stop: 06/16/21 01:32 Apixaban (Apixaban 5 Mg Tablet) 5 mg PO BID [facility] Stop: 06/16/21 08:59 Last Admin: 05/17/21 09:23 Dose: Not Given Documented by: Aspirin (Aspirin 81 Mg Ectab) 81 mg PO QAM AYDEN Stop: 06/16/21 08:59 Last Admin: 05/17/21 09:24 Dose: Not Given Documented by: Atorvastatin Calcium (Atorvastatin 10 Mg Tab) 10 mg PO HS AYDEN Stop: 06/16/21 20:59 Clonazepam (Clonazepam 0.5 Mg Tab) 0.5 mg PO Q6H PRN PRN Reason: Anxiety Stop: 06/16/21 01:32 Dextrose (Dextrose 50% 50 Ml Syringe) 25 - 50 ml IV UD PRN; Protocol PRN Reason: Hypoglycemia Protocol Stop: 06/16/21 02:29 Glucagon (Glucagon For Inj 1 Mg Vial) 1 mg IM UD PRN; Protocol PRN Reason: Hypoglycemia Protocol Stop: 06/16/21 02:29 Glucose (Glucose 40% Gel 15 Gm Tube) 15 - 30 gm PO UD PRN; Protocol PRN Reason: Hypoglycemia Protocol Stop: 06/16/21 02:29 Glucose (Glucose 10 Tabs/Tube) 4 - 8 tabs PO UD PRN; Protocol PRN Reason: Hypoglycemia Protocol Stop: 06/16/21 02:29 Sodium Chloride (Nss 1000ml) 1,000 mls @ 80 mls/hr IV .[id number] AYDEN Stop: 06/16/21 01:59 Last Admin: 05/17/21 17:18 Dose: 80 mls/hr Documented by: Ceftriaxone Sodium 2,000 mg/ (Dextrose) 70 mls @ 140 mls/hr IV Q24H [facility]; Protocol Stop: 05/27/21 19:59 Insulin Aspart (Insulin 70% Aspart Protamine/30% Aspart) 22 units SC QDB [facility] Stop: 06/16/21 07:29 Last Admin: 05/17/21 09:29 Dose: Not Given Documented by: Insulin Aspart (Insulin Aspart 100 Units/Ml 3 Ml Pen) 0 units SC ACHS [facility] Stop: 06/16/21 07:29 Last Admin: 05/17/21 17:26 Dose: Not Given Documented by: Insulin Aspart (Insulin 70% Aspart Protamine/30% Aspart) 14 units SC QDD [facility] Stop: 06/16/21 16:29 Last Admin: 05/17/21 17:28 Dose: 14 units Documented by: Losartan Potassium (Losartan Potassium 50 Mg Tab) [facility] Stop: 06/16/21 08:59 Last Admin: 05/17/21 09:24 Dose: Not Given Documented by: Metoprolol Tartrate (Metoprolol Tartrate 25 Mg Tab) 25 mg PO BID [facility] Stop: 06/16/21 08:59 Last Admin: 05/17/21 09:24 Dose: Not Given Documented by: Miscellaneous (Carbohydrates For Hypoglycemia ) 15 - 30 gm PO UD PRN PRN Reason: Hypoglycemia Treatment Stop: 06/16/21 02:29 Miscellaneous Information (Pharmacist Discharge Med Rec Consult) 1 ea N/A UD PRN PRN Reason: Consult Stop: 06/16/21 01:32 Nitroglycerin (Nitroglycerin Sl 0.4 Mg/Tab Tab) 0.4 mg SL UD PRN PRN Reason: Chest Pain Stop: 06/16/21 01:32 Pantoprazole Sodium (Pantoprazole 40 Mg Tab) 40 mg PO QAM [facility] Stop: 06/16/21 08:59 Last Admin: 05/17/21 09:24 Dose: Not Given Documented by: Risperidone (Risperidone 0.5 Mg Tablet) 0.25 mg PO BID@0800,1200 [facility] Stop: 06/16/21 07:59 Last Admin: 05/17/21 12:11 Dose: 0.25 mg Documented by: Sennosides (Senna 8.6 Mg Tab) 8.6 mg PO QAM [facility] Stop: 06/16/21 08:59 Last Admin: 05/17/21 09:24 Dose: Not Given Documented by: Sertraline HCl (Sertraline Hcl 50 Mg Tablet) 75 mg PO QPM [facility] Stop: 06/16/21 20:59 Vitamin D (Cholecalciferol 1,000 Units 25 Mcg Tab) 1,000 [facility] [place] Stop: 06/16/21 08:59 Last Admin: 05/17/21 09:24 Dose: Not Given Documented by: (1) HTN (hypertension) Hypertension type: unspecified Qualified Code(s): I10 - Essential (primary) hypertension
[2021-05-17] MEDS: cefTRIAXone SODIUM 2,000 MG in DEXTROSE 5% 50 ML IV SCH (20:50)
[2021-05-17] MEDS: ATORVASTATIN 10 MG TAB PO SCH (20:51)
[2021-05-17] MEDS: SERTRALINE HCL 50 MG TABLET PO SCH (20:52)
[2021-05-18 06:20] LABS: Basophils # (auto) 0.04 K/uL (0-0.2); Basophils % (auto) 0.7 %; Eosinophils % (auto) 3.5 %; Hematocrit (blood only) 29.8 % (42-52); Hemoglobin 9.8 g/dL (14.0-18.0); Immature Granulocytes # (auto) 0.01 K/uL (0.00-0.02); Immature Granulocytes % (auto) 0.2 %; Lymphocytes # (auto) 1.54 K/uL (1.2-3.4); Lymphocytes % (auto) 27.2 %; Mean Corpuscular Hemoglobin 28.7 pg (25-34); Mean Corpuscular Hgb Conc 32.9 g/dL (32-36); Mean Corpuscular Volume 87.1 fL (80-100); Mean Platelet Volume 8.9 fL (7.4-10.4); Monocytes # (auto) 0.51 K/uL (0.11-0.59); Neutrophils # (auto) 3.36 K/uL (1.4-6.5); Neutrophils % (auto) 59.4 %; Platelet Count 287 K/uL (130-400); RDW Coefficient of Variation 14.3 % (11.5-14.5); RDW Standard Deviation 45.8 fL (36.4-46.3); Red Blood Count 3.42 M/uL (4.7-6.1); White Blood Count 5.66 K/uL (4.8-10.8)
[2021-05-18 06:51] LABS: BUN Creatinine Ratio 15.4 (10-20); Creatinine Clr Calc Pharmacy 67.9 ml/min; Est GFR (African American) 102.5 ml/min; Est GFR (Non-African American) 88.5 ml/min; Potassium 4.1 mmol/L (3.5-5.1)
[2021-05-18] MEDS: SODIUM CHLORIDE 0.9% 1000ML 1,000 ML IV SCH ×2 (09:19→21:02)
[2021-05-18] MEDS: APIXABAN 5 MG TABLET PO SCH ×2 (09:24→20:10)
[2021-05-18] MEDS: METOPROLOL TARTRATE 25 MG TAB PO SCH ×2 (09:25→20:09)
[2021-05-18] MEDS: SENNA 8.6 MG TAB PO SCH (09:27)
[2021-05-18] MEDS: LOSARTAN POTASSIUM 50 MG TAB PO SCH (09:27)
[2021-05-18] MEDS: CHOLECALCIFEROL 1,000 UNITS 25 MCG TAB PO SCH (09:27)
[2021-05-18] MEDS: PANTOprazole 40 MG TAB PO SCH (09:27)
[2021-05-18] MEDS: risperiDONE 0.5 MG TABLET PO SCH ×2 (09:28→12:25)
[2021-05-18] MEDS: ASPIRIN 81 MG ECTAB PO SCH (09:28)
[2021-05-18] MEDS: INSULIN ASPART 100 UNITS/ML 3 ML PEN SC SCH ×4 (09:38→20:11)
[2021-05-18] MEDS: INSULIN 70% ASPART PROTAMINE/30% ASPART SC SCH ×2 (09:39→17:23)
[2021-05-18 10:22] LABS: Appearance Urine Clear (Clear); Bacteria Urine Automated Negative (Negative); Bilirubin Urine Negative (Negative); Blood Urine Negative (Negative); Color Urine Yellow; Glucose Urine UA Negative (Negative); Ketones Urine 1+ (Negative); Leukocyte Esterase Urine Trace (Negative); Nitrite Urine Negative (Negative); Protein Urine Negative (Negative); RBC Urine Automated 0-4 /hpf (0-4); Specific Gravity Urine 1.009 (1.000-1.030); Urobilinogen Urine Negative (Negative); pH Urine 5.5 (4.5-7.5)
[2021-05-18 15:25] LABS: 18KDIGG Band NON-REACTIVE; 23KDIGG Band NON-REACTIVE; 23KDIGM Band REACTIVE; 28KDIGG Band NON-REACTIVE; 30KDIGG Band NON-REACTIVE; 39KDIGG Band NON-REACTIVE; 39KDIGM Band NON-REACTIVE; 41KDIGG Band NON-REACTIVE; 41KDIGM Band NON-REACTIVE; 45KDIGG Band NON-REACTIVE; 58KDIGG Band REACTIVE; 66KDIGG Band NON-REACTIVE; 93KDIGG Band NON-REACTIVE; Lyme Antibodies, WB IgG NEGATIVE (NEGATIVE); Lyme Antibodies, WB IgM NEGATIVE (NEGATIVE)
--- NOTE | 2021-05-18 15:36 | Communication Note ---
Date of Service: May 18, 2021 I am reviewing Mr. Jaffe's chart by computer The echocardiographic study is normal orally shows no evidence for source of potential cerebral embolization beyond the atrial fibrillation an MRI scan is still pending At this point then he remains unclear is whether this man has had a new CVA or whether he simply has had an exacerbation of symptoms from his prior CVAs due to his urinary tract infection perhaps the effects of his COVID-19 reinfection We will continue to monitor his chart by computer and await the results of the MRI scan That having been said we are really not going to change any of his anticoagulation medical based on what the MRI shows so it becomes a very academic question at this point Denys Woodard MD
[2021-05-18] MEDS: CARBOHYDRATES FOR HYPOGLYCEMIA PO PRN (19:55)
[2021-05-18] MEDS ORDERED: PHARMACY GLYCEMIC MGMT CONSULT PRN (20:03)
[2021-05-18] MEDS: cefTRIAXone SODIUM 2,000 MG in DEXTROSE 5% 50 ML IV SCH (20:07)
[2021-05-18] MEDS: DEXTROSE 50% 50 ML SYRINGE IV PRN (20:20)
[2021-05-18] MEDS: ATORVASTATIN 10 MG TAB PO SCH (20:20)
--- NOTE | 2021-05-18 20:42 | Hospitalist Progress Note ---
Date of Service May 18, 2021 Assessment & Plan (1) Stroke-like symptoms: (2) Weakness: Plan: #. Stroke-like symptoms: Has had ongoing weakness and was sent in from [facility] with possible strokelike symptoms Difficult to find out any significant neuro deficit by history and her examination Await MRI 04/16 echo: EF 60 to 65% with normal LV systolic function and mild concentric LVH. Grade 1 diastolic dysfunction. Neurology on board: Awaiting MRI brain. Await further input from neurology. Continue neurochecks. We will continue aspirin and statin for now #. Weakness: Has weakness which has been chronic PT/OT #. Lyme disease: Negative serology #. Possible UTI: UA consistent with UTI Patient started Rocephin 05/17 for concerns of lyme, will continue for total of 3-5 days to cover for UTI. #. Paroxysmal A-fib: Rate is controlled Continue Eliquis #. Cognitive disorder: #. Uncontrolled type 1 diabetes mellitus with hyperglycemia: Continue current insulin And will put him on sliding scale insulin coverage #. COVID-19: He had Covid infection and november of 2019 Has had Covid vaccine but no booster yet He has had multiple negative Covid test in the past Patient turned Covid positive this admission but has been asymptomatic. #. HTN (hypertension): Under goal, continue home meds DVT prophylaxis On Eliquis CODE STATUS DNR/DNI Disposition: Await MRI brain, await further input from neurology, possible discharge back to [facility] but needs 24-hour notice per CM. Admission and Anticipated Discharge Date Admission Date: May 16, 2021 Subjective Patient was lying in bed, on room air, NAD, no acute events overnight. Patient denies any any pain but was limited due to cognitive status. Physical Exam Physical Exam: GENERAL: Alert and awake, NAD, on RA. HEENT: No pallor, no icterus. Pupils equal, round and reactive to light. Oral mucosa moist. NECK: No JVD, no neck masses. HEART: S1 and S2 heard. Regular rate and rhythm. No murmur, no gallop. RESPIRATORY SYSTEM: Normal AP diameter. No accessory muscle use. No wheezing, no crackles. ABDOMEN: Soft, bowel sounds present, nontender, no distention. CENTRAL NERVOUS SYSTEM: No facial droop. Dysarthric. Generally weak. Obeys simple commands. Moves extremities. Full neuro exam not possible. EXTREMITIES: No edema RLE no erythema seen. Left BKA. Results & Data Results & Data ([facility]) Vital Signs (Past 12 Hours) Vital Signs Temp Pulse Pulse Resp BP Pulse Ox Pulse Ox 05/18/21 19:23 37.1 C 81 18 129/77 96 05/18/21 15:30 97 05/18/21 15:15 37.2 C 73 18 128/49 L 95 05/18/21 14:20 70 05/18/21 11:00 36.9 C 80 18 137/57 L 95
[2021-05-18] MEDS: SERTRALINE HCL 50 MG TABLET PO SCH (21:03)
[2021-05-19] MEDS: SODIUM CHLORIDE 0.9% 1000ML 1,000 ML IV SCH ×2 (05:19→17:34)
[2021-05-19 06:27] LABS: Basophils # (auto) 0.02 K/uL (0-0.2); Basophils % (auto) 0.3 %; Eosinophils # (auto) 0.18 K/uL (0-0.5); Eosinophils % (auto) 2.8 %; Hematocrit (blood only) 28.5 % (42-52); Hemoglobin 9.4 g/dL (14.0-18.0); Immature Granulocytes # (auto) 0.01 K/uL (0.00-0.02); Immature Granulocytes % (auto) 0.2 %; Lymphocytes # (auto) 1.72 K/uL (1.2-3.4); Lymphocytes % (auto) 26.9 %; Mean Platelet Volume 8.6 fL (7.4-10.4); Monocytes # (auto) 0.55 K/uL (0.11-0.59); Monocytes % (auto) 8.6 %; Neutrophils # (auto) 3.92 K/uL (1.4-6.5); Neutrophils % (auto) 61.2 %; Platelet Count 288 K/uL (130-400); RDW Coefficient of Variation 14.3 % (11.5-14.5); RDW Standard Deviation 46.5 fL (36.4-46.3); Red Blood Count 3.24 M/uL (4.7-6.1)
[2021-05-19 06:52] LABS: BUN Creatinine Ratio 12.2 (10-20); Calcium 9.1 mg/dl (8.5-10.1); Creatinine Clr Calc Pharmacy 67.1 ml/min; Est GFR (African American) 102.1 ml/min; Est GFR (Non-African American) 88.1 ml/min; Potassium 3.7 mmol/L (3.5-5.1)
[2021-05-19] MEDS: risperiDONE 0.5 MG TABLET PO SCH ×2 (07:56→12:05)
[2021-05-19] MEDS: ASPIRIN 81 MG ECTAB PO SCH (07:57)
[2021-05-19] MEDS: APIXABAN 5 MG TABLET PO SCH ×2 (07:57→20:18)
[2021-05-19] MEDS: CHOLECALCIFEROL 1,000 UNITS 25 MCG TAB PO SCH (07:58)
[2021-05-19] MEDS: LOSARTAN POTASSIUM 50 MG TAB PO SCH (07:59)
[2021-05-19] MEDS: METOPROLOL TARTRATE 25 MG TAB PO SCH ×2 (07:59→20:18)
[2021-05-19] MEDS: PANTOprazole 40 MG TAB PO SCH (08:00)
[2021-05-19] MEDS: SENNA 8.6 MG TAB PO SCH (08:00)
[2021-05-19] MEDS ORDERED: INSULIN GLARGINE SOLOSTAR 100 UNITS/ML 3 ML PEN SC SCH (09:00)
[2021-05-19] MEDS: INSULIN ASPART 100 UNITS/ML 3 ML PEN SC SCH ×4 (09:17→20:17)
--- NOTE | 2021-05-19 11:33 | Pharmacy Report ---
Pharmacy Glycemic Short Note 2 - Date of Service May 19, 2021 - Glycemic Short BSG Results (Last 24 hours): 05/18/21 05/18/21 05/18/21 11:43 16:47 19:44 Glucose POC Glucose 161 H 79 42 L* 05/18/21 05/18/21 05/19/21 20:11 20:41 03:06 Glucose POC Glucose 46 L* 174 H 111 H 05/19/21 05/19/21 06:08 07:50 Glucose 96 POC Glucose 122 H OUTPATIENT ANTIDIABETIC REGIMEN: * NovoLog 70/30 pre-mixed insulin 44 units SQ AM + 25 units SQ PM * A1c = 9.6% on 05/17/21 ASSESSMENT: * 70yo T1DM male known to pharmacy from previous admissions/glycemic consults. * Pt with HYPOGLYCEMIA last evening secondary to premixed insulin * Outpatient regimen is premixed basal/prandial insulin of NovoLog 70/30 mix insulin which was continued on admission (but doses were reduced). * Pre-mixed insulin is difficult to titrate since it is already in a fixed distribution of basal:prandial insulin. Continuing pre-mixed insulin for admission typically lead to hypoglycemia d/t changing PO status but rapid acting insulin is unable to be held. * Home regimen will be held for admission per pharmacy consult. Will utilize recommended regimen of SQ basal bolus insulin regimen with Lantus + NovoLog (CF+CR). Will use a regimen similar to previous admissions and titrate based on BSG trends PLAN FOR INPATIENT GLYCEMIC CONTROL: * Hold outpatient diabetes medications (premixed insulin) * Basal insulin * Lantus 18 units SQ daily in AM * Bolus insulin * NovoLog per scale ACHS or Q6hrs while NPO * Goal Range: Low 120 mg/dL - High 150 mg/dL * Correction Factor: 30 mg/dL/unit * Nutritional / Prandial insulin per carb ratio of 1 unit per 10 grams CHO consumed PLAN FOR DISCHARGE: * Patient follows with Dr Dominguez at [facility] Endocrinology. Pt has instructions to adjust his insulin dosing based on BSGs and CHO consumed. Pt to continue following directions/plan of outpatient provider.
--- NOTE | 2021-05-19 16:11 | Communication Note ---
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 There is also some subtle evidence for right upper motor neuron deficits and his scans have certainly shown evidence for multiple areas of leukoencephalopathy and probable subcortical infarcts MRI is going to be done to confirm whether or not he had a new CVA as would be very difficult to tell both clinically and by CT imaging Again the issue is academic I find no compelling reason to increase his commands anticoagulant combination of aspirin and a novel anticoagulant and I continue to suspect that any worsening of his clinical condition was related either to the urinary tract infection or perhaps subtle effects of what is otherwise asymptomatic reinfection with COVID-19 I get back to the chart tomorrow hopefully when the MRI has been done and if negative for a new stroke neurology will certainly sign off the case Denys Woodard MD
--- NOTE | 2021-05-19 17:57 | Hospitalist Progress Note ---
Date of Service May 19, 2021 Assessment & Plan (1) Stroke-like symptoms: (2) Weakness: Plan: #. Stroke-like symptoms: Has had ongoing weakness and was sent in from [facility] with possible strokelike symptoms Difficult to find out any significant neuro deficit by history and her examination Await MRI - MRI not done yet, nursing staff made aware. 04/16 echo: EF 60 to 65% with normal LV systolic function and mild concentric LVH. Grade 1 diastolic dysfunction. Neurology on board: Awaiting MRI brain. Await further input from neurology. Continue neurochecks. We will continue aspirin and statin for now #. Weakness: Has weakness which has been chronic PT/OT #. Lyme disease: Negative serology #. Possible UTI: UA consistent with UTI Patient started Rocephin 05/17 for concerns of lyme, will continue for total of 3-5 days to cover for UTI. #. Paroxysmal A-fib: Rate is controlled Continue Eliquis #. Cognitive disorder: #. Uncontrolled type 1 diabetes mellitus with hyperglycemia: Continue current insulin And will put him on sliding scale insulin coverage #. COVID-19: He had Covid infection and november of 2019 Has had Covid vaccine but no booster yet He has had multiple negative Covid test in the past Patient turned Covid positive this admission but has been asymptomatic. #. HTN (hypertension): Under goal, continue home meds DVT prophylaxis On Eliquis CODE STATUS DNR/DNI Disposition: Await MRI brain, await further input from neurology, possible discharge back to [facility] but needs 24-hour notice per CM. Admission and Anticipated Discharge Date Admission Date: May 16, 2021 Subjective Patient was lying in bed, on room air, NAD, no acute events overnight. Patient denies any any pain but was limited due to cognitive status. Patient denied physical examination today. Physical Exam Physical Exam: GENERAL: Alert and awake, NAD, on RA. Denied other physical examinations. Patient seen moving extremities. Results & Data Results & Data ([facility]) Vital Signs (Past 12 Hours) Vital Signs Temp Pulse Pulse Resp BP Pulse Ox 05/19/21 16:29 37.1 C 74 18 146/49 H 96 05/19/21 15:47 68 05/19/21 14:51 36.9 C 71 16 159/79 H 97 05/19/21 14:20 36.9 C 71 18 150/53 H 97 05/19/21 10:04 69 05/19/21 06:16 36.8 C 70 18 160/79 H 97
[2021-05-19] MEDS: cefTRIAXone SODIUM 2,000 MG in DEXTROSE 5% 50 ML IV SCH (20:16)
[2021-05-19] MEDS: ATORVASTATIN 10 MG TAB PO SCH (20:19)
[2021-05-19] MEDS: SERTRALINE HCL 50 MG TABLET PO SCH (20:20)
[2021-05-19] MEDS ORDERED: GADOBUTROL 65ML VIAL IV ONE (23:29)
[2021-05-20] MEDS: SODIUM CHLORIDE 0.9% 1000ML 1,000 ML IV SCH ×2 (04:39→15:54)
[2021-05-20 05:49] LABS: Hematocrit (blood only) 29.9 % (42-52); Hemoglobin 9.8 g/dL (14.0-18.0); Mean Corpuscular Hemoglobin 28.8 pg (25-34); Mean Corpuscular Hgb Conc 32.8 g/dL (32-36); Mean Corpuscular Volume 87.9 fL (80-100); Mean Platelet Volume 8.6 fL (7.4-10.4); Platelet Count 332 K/uL (130-400); RDW Coefficient of Variation 14.5 % (11.5-14.5); RDW Standard Deviation 46.4 fL (36.4-46.3); White Blood Count 6.37 K/uL (4.8-10.8)
[2021-05-20] MEDS: ASPIRIN 81 MG ECTAB PO SCH (07:57)
[2021-05-20] MEDS: LOSARTAN POTASSIUM 50 MG TAB PO SCH (07:58)
[2021-05-20] MEDS: risperiDONE 0.5 MG TABLET PO SCH ×2 (07:59→12:21)
[2021-05-20] MEDS: PANTOprazole 40 MG TAB PO SCH (07:59)
[2021-05-20] MEDS: METOPROLOL TARTRATE 25 MG TAB PO SCH ×2 (07:59→19:57)
[2021-05-20] MEDS: APIXABAN 5 MG TABLET PO SCH ×2 (08:00→20:00)
[2021-05-20] MEDS: SENNA 8.6 MG TAB PO SCH (08:00)
[2021-05-20] MEDS: CHOLECALCIFEROL 1,000 UNITS 25 MCG TAB PO SCH (08:00)
[2021-05-20] MEDS: INSULIN ASPART 100 UNITS/ML 3 ML PEN SC SCH ×4 (08:32→20:06)
[2021-05-20] MEDS: INSULIN GLARGINE SOLOSTAR 100 UNITS/ML 3 ML PEN SC SCH (08:33)
--- NOTE | 2021-05-20 08:35 | Magnetic Resonance Report ---
MR brain wo/w con CLINICAL HISTORY: cva? TECHNIQUE: Multiplanar and multisequence MR images of the brain were obtained prior to and following administration of gadolinium contrast. Comparison: Comparison is made to CTA head and neck 05/16/2021 FINDINGS: There are foci of restricted diffusion in the right internal capsule as well as a tiny focus of restr icted diffusion in the parafalcine left frontal lobe. Mildly increased T2 signal is seen correspondin g to these lesions, compatible with edema. Foci of T2 and FLAIR hyperintensity are noted in the parav entricular areas consistent with chronic small vessel ischemic disease. Ex vacuo ventriculomegaly and sulcal enlargement is noted compatible with diffuse encephalomalacia. There is no evidence of acute intraparenchymal hemorrhage. No extra axial fluid collections are seen. There are no masses, mass eff ect, or midline shift. No abnormal enhancement is seen. The corpus callosum, pituitary gland, and ce rebellar tonsils appear grossly unremarkable. Flow voids of the major intracranial arterial vessels are identified. The imaged portions of the para nasal sinuses, mastoid air cells, and orbits are unremarkable. IMPRESSION: Tiny foci of restricted diffusion in the right posterior internal capsule and left parafalcine white matter compatible with acute infarct. ACT 112: Positive. There are findings on this exam that require communication between the performing entity and the patient following Patient Test Result Information Act ([place] Act 112) guidelines. Electronically signed by: Anderson Bradley M.D. 05/20/2021 8:34 AM
--- NOTE | 2021-05-20 09:06 | Communication Note ---
Date of Service: May Mr. Zhang's MRI scan indicate evidence for multiple punctate undoubtedly embolic events involving deep portions of both hemispheres which may explain his increased dysarthria speech which is superimposed upon his extensive areas of old infarction He does have paroxysmal atrial fibrillation and this is most likely the cause. He is also on dual anticoagulation with aspirin and a novel anticoagulant Dr. Medina and I have discussed the case and I have suggested a cardiology review with an decide whether a change in his anticoagulation protocol would be indicated in the setting. It has to be recognized however that no anticoagulation protocol is going to provide under percent protection from recurrent emboli and excessive anticoagulation with his high risk for inducing bleeding may be more risky than beneficial Neurology is going to sign off the case at this point We will be happy to take another look should things change during the course of the subsequent hospital stay Denys Woodard MD
--- NOTE | 2021-05-20 10:19 | Pharmacy Report ---
Pharmacy Glycemic Short Note 2 - Date of Service May 20, 2021 - Glycemic Short BSG Results (Last 24 hours): 05/19/21 05/19/21 05/19/21 11:55 16:26 19:58 POC Glucose 216 H 254 H 275 H 05/20/21 07:26 POC Glucose 195 H OUTPATIENT ANTIDIABETIC REGIMEN: * NovoLog 70/30 pre-mixed insulin 44 units SQ AM + 25 units SQ PM * A1c = 9.6% on 05/17/21 ASSESSMENT: 05/20 * Pt has received 37 units of insulin over the past 24hrs * 18 units of basal with Lantus * 19 units of bolus with NovoLog * BSGs [phone] mg/dl * BSGs trending upwards. Will increase Lantus slightly - patient is a type 1 and sensitive to small insulin dose changes. Will increase from 18 to 19 units per previous admissions/glycemic consults. Will also tighten CR for increased prandial coverage. * 05/19 * 70yo T1DM male known to pharmacy from previous admissions/glycemic consults. * Pt with HYPOGLYCEMIA last evening secondary to premixed insulin * Outpatient regimen is premixed basal/prandial insulin of NovoLog 70/30 mix insulin which was continued on admission (but doses were reduced). * Pre-mixed insulin is difficult to titrate since it is already in a fixed distribution of basal:prandial insulin. Continuing pre-mixed insulin for admission typically lead to hypoglycemia d/t changing PO status but rapid acting insulin is unable to be held. * Home regimen will be held for admission per pharmacy consult. Will utilize recommended regimen of SQ basal bolus insulin regimen with Lantus + NovoLog (CF+CR). Will use a regimen similar to previous admissions and titrate based on BSG trends PLAN FOR INPATIENT GLYCEMIC CONTROL: * Hold outpatient diabetes medications (premixed insulin) * Basal insulin * Lantus 19 units SQ daily in AM * Bolus insulin * NovoLog per scale ACHS or Q6hrs while NPO * Goal Range: Low 120 mg/dL - High 150 mg/dL * Correction Factor: 30 mg/dL/unit * Nutritional / Prandial insulin per carb ratio of 1 unit per 9 grams CHO consumed PLAN FOR DISCHARGE: * Patient follows with Dr Dominguez at [facility] Endocrinology. Pt has instructions to adjust his insulin dosing based on BSGs and CHO consumed. Pt to continue following directions/plan of outpatient provider.
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
--- NOTE | 2021-05-20 18:59 | Hospitalist Progress Note ---
Date of Service May 20, 2021 Assessment & Plan (1) Stroke-like symptoms: (2) Weakness: Plan: #. Stroke Has had ongoing weakness and was sent in from [facility] with possible strokelike symptoms Difficult to find out any significant neuro deficit by history and examination 05/19 brain MRI:Tiny foci of restricted diffusion in the right posterior internal capsule and left parafalcine white matter compatible with acute infarct. 04/16 echo: EF 60 to 65% with normal LV systolic function and mild concentric LVH. Grade 1 diastolic dysfunction. Neurology on board: Recommends cardiology for anticoagulation and cardioembolic evaluation. Cardiology consulted: Recommends switching aspirin to Plavix, continue with Eliquis. Continue with Plavix/Eliquis/statin #. Weakness: Has weakness which has been chronic PT/OT #. Lyme disease: Negative serology #. Possible UTI: UA consistent with UTI Patient started Rocephin 05/17 for concerns of lyme, will continue for total of 3-5 days to cover for UTI. DC Rocephin after tomorrow dose. #. Paroxysmal A-fib: Rate is controlled Continue Eliquis #. Cognitive disorder: #. Uncontrolled type 1 diabetes mellitus with hyperglycemia: Continue current insulin And will put him on sliding scale insulin coverage #. COVID-19: He had Covid infection and november of 2019 Has had Covid vaccine but no booster yet He has had multiple negative Covid test in the past Patient turned Covid positive this admission but has been asymptomatic. #. HTN (hypertension): Under goal, continue home meds DVT prophylaxis On Eliquis CODE STATUS DNR/DNI Disposition: Can DC tomorrow if no new issues overnight, possible discharge back to [facility] but needs 24-hour notice per CM. Admission and Anticipated Discharge Date Admission Date: May 16, 2021 Subjective Patient was lying in bed, on room air, NAD, no acute events overnight. Patient denies any any pain but was limited due to cognitive status. Patient denied physical examination again today. Physical Exam Physical Exam: GENERAL: Alert and awake, NAD, on RA. Denied other physical examinations. Patient seen moving extremities. Results & Data Results & Data ([facility]) Vital Signs (Past 12 Hours) Vital Signs Temp Pulse Pulse Resp BP Pulse Ox 05/20/21 16:18 69 05/20/21 15:54 36.7 C 71 16 157/48 H 97 05/20/21 11:31 36.8 C 66 18 160/54 H 98 05/20/21 07:50 84 158/78 H 05/20/21 07:44 68 05/20/21 07:43 36.4 C L 74 16 189/83 H 98
[2021-05-20] MEDS: cefTRIAXone SODIUM 2,000 MG in DEXTROSE 5% 50 ML IV SCH (19:56)
[2021-05-20] MEDS: ATORVASTATIN 10 MG TAB PO SCH (19:58)
[2021-05-20] MEDS: SERTRALINE HCL 50 MG TABLET PO SCH (19:59)
[2021-05-21] MEDS: SODIUM CHLORIDE 0.9% 1000ML 1,000 ML IV SCH ×2 (05:16→17:15)
[2021-05-21] MEDS: CHOLECALCIFEROL 1,000 UNITS 25 MCG TAB PO SCH (08:28)
[2021-05-21] MEDS: LOSARTAN POTASSIUM 50 MG TAB PO SCH (08:28)
[2021-05-21] MEDS: risperiDONE 0.5 MG TABLET PO SCH ×2 (08:28→12:32)
[2021-05-21] MEDS: METOPROLOL TARTRATE 25 MG TAB PO SCH ×2 (08:29→19:56)
[2021-05-21] MEDS: PANTOprazole 40 MG TAB PO SCH (08:29)
[2021-05-21] MEDS: SENNA 8.6 MG TAB PO SCH (08:29)
[2021-05-21] MEDS: APIXABAN 5 MG TABLET PO SCH ×2 (08:29→19:58)
[2021-05-21] MEDS: CLOPIDOGREL BISULFATE 75 MG TAB PO SCH (08:29)
[2021-05-21] MEDS: INSULIN ASPART 100 UNITS/ML 3 ML PEN SC SCH ×4 (08:48→20:08)
[2021-05-21] MEDS: INSULIN GLARGINE SOLOSTAR 100 UNITS/ML 3 ML PEN SC SCH (08:48)
--- NOTE | 2021-05-21 18:17 | Hospitalist Progress Note ---
Date of Service May 21, 2021 Assessment & Plan (1) Stroke-like symptoms: (2) Weakness: Plan: #. Stroke Has had ongoing weakness and was sent in from [facility] with possible strokelike symptoms Difficult to find out any significant neuro deficit by history and examination 05/19 brain MRI:Tiny foci of restricted diffusion in the right posterior internal capsule and left parafalcine white matter compatible with acute infarct. 04/16 echo: EF 60 to 65% with normal LV systolic function and mild concentric LVH. Grade 1 diastolic dysfunction. Neurology on board: Recommends cardiology for anticoagulation and cardioembolic evaluation. Cardiology consulted: Recommends switching aspirin to Plavix, continue with Eliquis. Continue with Plavix/Eliquis/statin #. Weakness: Has weakness which has been chronic PT/OT #. Lyme disease: Negative serology #. Possible UTI: UA consistent with UTI Patient started Rocephin 05/17 for concerns of lyme, will continue for total of 3-5 days to cover for UTI. DC Rocephin after today's dose. #. Paroxysmal A-fib: Rate is controlled Continue Eliquis #. Cognitive disorder: #. Uncontrolled type 1 diabetes mellitus with hyperglycemia: Continue current insulin And will put him on sliding scale insulin coverage #. COVID-19: He had Covid infection and november of 2019 Has had Covid vaccine but no booster yet He has had multiple negative Covid test in the past Patient turned Covid positive this admission but has been asymptomatic. #. HTN (hypertension): Under goal, continue home meds DVT prophylaxis On Eliquis CODE STATUS DNR/DNI Disposition: Medically stable to [place] if no new issues overnight, possible discharge back to [facility] but needs 24-hour notice per CM. Admission and Anticipated Discharge Date Admission Date: May 16, 2021 Subjective Patient was lying in bed, on room air, NAD, no acute events overnight. Patient AO x1. Patient was cooperative today. Per RN, patient has confusion on and off and he is eating and moving bowels okay. No acute events overnight per RN. Patient denies any pain but was limited due to cognitive status. Physical Exam Physical Exam: GENERAL: Alert and awake, NAD, on RA. Not able to fully cooperate due to cognitive status. Not able to engage in conversation. HEENT: No pallor, no icterus. Pupils equal, round and reactive to light. Oral mucosa moist. NECK: No JVD, no neck masses. HEART: S1 and S2 heard. Regular rate and rhythm. No murmur, no gallop. RESPIRATORY SYSTEM: Normal AP diameter. No accessory muscle use. No wheezing, no crackles. ABDOMEN: Soft, bowel sounds present, nontender, no distention. CENTRAL NERVOUS SYSTEM: No facial droop. Dysarthric. Generally weak. Obeys simple commands. Moves extremities. Full neuro exam not possible. EXTREMITIES: No edema RLE no erythema seen. Left BKA. Right foot toe s/p amputation. Results & Data Results & Data ([facility]) Vital Signs (Past 12 Hours) Vital Signs Temp Pulse Pulse Resp BP Pulse Ox 05/21/21 17:48 36.7 C 69 16 167/56 H 96 05/21/21 15:00 69 05/21/21 12:45 36.8 C 66 16 172/93 H 98 05/21/21 08:26 36.9 C 71 18 174/68 H 96 05/21/21 08:00 64
[2021-05-21] MEDS: cefTRIAXone SODIUM 2,000 MG in DEXTROSE 5% 50 ML IV SCH (19:53)
[2021-05-21] MEDS: ATORVASTATIN 10 MG TAB PO SCH (19:55)
[2021-05-21] MEDS: SERTRALINE HCL 50 MG TABLET PO SCH (19:57)
[2021-05-22] MEDS: SODIUM CHLORIDE 0.9% 1000ML 1,000 ML IV SCH (05:38)
[2021-05-22] MEDS: risperiDONE 0.5 MG TABLET PO SCH ×2 (09:02→12:20)
[2021-05-22] MEDS: SENNA 8.6 MG TAB PO SCH (09:02)
[2021-05-22] MEDS: CHOLECALCIFEROL 1,000 UNITS 25 MCG TAB PO SCH (09:02)
[2021-05-22] MEDS: LOSARTAN POTASSIUM 50 MG TAB PO SCH (09:02)
[2021-05-22] MEDS: CLOPIDOGREL BISULFATE 75 MG TAB PO SCH (09:02)
[2021-05-22] MEDS: PANTOprazole 40 MG TAB PO SCH (09:02)
[2021-05-22] MEDS: APIXABAN 5 MG TABLET PO SCH ×3 (09:02→22:00)
[2021-05-22] MEDS: METOPROLOL TARTRATE 25 MG TAB PO SCH ×3 (09:02→22:00)
[2021-05-22] MEDS: INSULIN GLARGINE SOLOSTAR 100 UNITS/ML 3 ML PEN SC SCH (09:19)
[2021-05-22] MEDS: INSULIN ASPART 100 UNITS/ML 3 ML PEN SC SCH ×4 (09:19→22:00)
--- NOTE | 2021-05-22 09:25 | Pharmacy Report ---
Pharmacy Glycemic Short Note 2 - Date of Service May 22, 2021 - Glycemic Short BSG Results (Last 24 hours): 05/21/21 05/21/21 05/21/21 11:42 16:44 20:03 POC Glucose 165 H 145 H 129 H 05/22/21 08:05 POC Glucose 104 H OUTPATIENT ANTIDIABETIC REGIMEN: * NovoLog 70/30 pre-mixed insulin 44 units SQ AM + 25 units SQ PM * A1c = 9.6% on 05/17/21 ASSESSMENT: 05/22 * Pt has received 28 units of insulin over the past 24hrs * 19 units of basal with Lantus * 10 units of bolus with NovoLog * BSGs [phone] mg/dl Fasting today is 104 mg/dL * Continue current regimen. May require Lantus dose reduction tomorrow since fastings are trending downwards. 05/20 * Pt has received 37 units of insulin over the past 24hrs * 18 units of basal with Lantus * 19 units of bolus with NovoLog * BSGs [phone] mg/dl * BSGs trending upwards. Will increase Lantus slightly - patient is a type 1 and sensitive to small insulin dose changes. Will increase from 18 to 19 units per previous admissions/glycemic consults. Will also tighten CR for increased prandial coverage. * 05/19 * 70yo T1DM male known to pharmacy from previous admissions/glycemic consults. * Pt with HYPOGLYCEMIA last evening secondary to premixed insulin * Outpatient regimen is premixed basal/prandial insulin of NovoLog 70/30 mix insulin which was continued on admission (but doses were reduced). * Pre-mixed insulin is difficult to titrate since it is already in a fixed distribution of basal:prandial insulin. Continuing pre-mixed insulin for admission typically lead to hypoglycemia d/t changing PO status but rapid acting insulin is unable to be held. * Home regimen will be held for admission per pharmacy consult. Will utilize recommended regimen of SQ basal bolus insulin regimen with Lantus + NovoLog (CF+CR). Will use a regimen similar to previous admissions and titrate based on BSG trends PLAN FOR INPATIENT GLYCEMIC CONTROL: * Hold outpatient diabetes medications (premixed insulin) * Basal insulin * Lantus 19 units SQ daily in AM * Bolus insulin * NovoLog per scale ACHS or Q6hrs while NPO * Goal Range: Low 120 mg/dL - High 150 mg/dL * Correction Factor: 30 mg/dL/unit * Nutritional / Prandial insulin per carb ratio of 1 unit per 9 grams CHO consumed PLAN FOR DISCHARGE: * Patient follows with Dr Dominguez at [facility] Endocrinology. Pt has instructions to adjust his insulin dosing based on BSGs and CHO consumed. Pt to continue following directions/plan of outpatient provider.
--- NOTE | 2021-05-22 17:06 | Hospitalist Progress Note ---
Date of Service May 22, 2021 Assessment & Plan (1) Stroke-like symptoms: (2) Weakness: Plan: #. Stroke Has had ongoing weakness and was sent in from [facility] with possible strokelike symptoms Difficult to find out any significant neuro deficit by history and examination 05/19 brain MRI:Tiny foci of restricted diffusion in the right posterior internal capsule and left parafalcine white matter compatible with acute infarct. 04/16 echo: EF 60 to 65% with normal LV systolic function and mild concentric LVH. Grade 1 diastolic dysfunction. Neurology on board: Recommends cardiology for anticoagulation and cardioembolic evaluation. Cardiology consulted: Recommends switching aspirin to Plavix, continue with Eliquis. Continue with Plavix/Eliquis/statin #. Weakness: Has weakness which has been chronic PT/OT #. Lyme disease: Negative serology #. Possible UTI: UA consistent with UTI Patient started Rocephin 05/17 for concerns of lyme, will continue for total of 3-5 days to cover for UTI. Completed course of Rocephin for UTI. #. Paroxysmal A-fib: Rate is controlled Continue Eliquis #. Cognitive disorder: #. Uncontrolled type 1 diabetes mellitus with hyperglycemia: Continue current insulin And will put him on sliding scale insulin coverage #. COVID-19: He had Covid infection and november of 2019 Has had Covid vaccine but no booster yet He has had multiple negative Covid test in the past Patient turned Covid positive this admission but has been asymptomatic. #. HTN (hypertension): Under goal, continue home meds DVT prophylaxis On Eliquis CODE STATUS DNR/DNI Disposition: Medically stable to [place] if no new issues overnight, possible discharge back to [facility] but needs 24-hour notice per CM. Admission and Anticipated Discharge Date Admission Date: May 16, 2021 Subjective Patient was lying in bed, on room air, NAD, no acute events overnight. Patient AO x1. Patient cooperative. Per RN, patient has confusion on and off and he is eating and moving bowels okay. Patient needs assistance with eating. No acute events overnight per RN. Patient denies any pain but was limited due to cogn itive status. Physical Exam Physical Exam: GENERAL: Alert and awake, NAD, on RA. Not able to fully coope rate due to cognitive status. Not able to engage in conversation. Generally weak. HEENT: No pallor, no icterus. Pupils equal, round and reactive to light. Oral mucosa moist. NECK: No JVD, no neck masses. HEART: S1 and S2 heard. Regular rate and rhythm. No murmur, no gallop. RESPIRATORY SYSTEM: Normal AP diameter. No accessory muscle use. No wheezing, no crackles. ABDOMEN: Soft, bowel sounds present, nontender, no distention. CENTRAL NERVOUS SYSTEM: No facial droop. Dysarthric. Generally weak. Obeys simple commands. Moves extremities. Full neuro exam not possible. EXTREMITIES: No edema RLE no erythema seen. Left BKA. Right foot toe s/p amputation. Results & Data Results & Data ([facility]) Vital Signs (Past 12 Hours) Vital Signs Temp Pulse Pulse Resp BP Pulse Ox 05/22/21 14:59 74 05/22/21 12:34 36.8 C 81 18 145/61 H 99 05/22/21 09:31 70 05/22/21 08:00 36.9 C 75 18 160/51 H 99
[2021-05-22] MEDS: CARBOHYDRATES FOR HYPOGLYCEMIA PO PRN (17:24)
[2021-05-22] MEDS: DEXTROSE 50% 50 ML SYRINGE IV PRN (17:34)
[2021-05-22] MEDS ORDERED: LABETALOL HCL IV 5 MG/ML 20ML IV PRN (18:10)
[2021-05-22] MEDS: SERTRALINE HCL 50 MG TABLET PO SCH ×2 (21:45→22:00)
[2021-05-22] MEDS: ATORVASTATIN 10 MG TAB PO SCH ×2 (21:46→22:00)
[2021-05-23] MEDS: CARBOHYDRATES FOR HYPOGLYCEMIA PO PRN (02:01)
[2021-05-23] MEDS: risperiDONE 0.5 MG TABLET PO SCH (08:36)
[2021-05-23] MEDS: CHOLECALCIFEROL 1,000 UNITS 25 MCG TAB PO SCH (08:36)
[2021-05-23] MEDS: APIXABAN 5 MG TABLET PO SCH (08:36)
[2021-05-23] MEDS: CLOPIDOGREL BISULFATE 75 MG TAB PO SCH (08:36)
[2021-05-23] MEDS: PANTOprazole 40 MG TAB PO SCH (08:37)
[2021-05-23] MEDS: SENNA 8.6 MG TAB PO SCH (08:37)
[2021-05-23] MEDS: METOPROLOL TARTRATE 25 MG TAB PO SCH (08:37)
[2021-05-23] MEDS: LOSARTAN POTASSIUM 50 MG TAB PO SCH (08:37)
[2021-05-23 08:42] VITALS: PULSE 74; O2SAT 93
[2021-05-23] MEDS: INSULIN ASPART 100 UNITS/ML 3 ML PEN SC SCH (08:54)
[2021-05-23] MEDS ORDERED: INSULIN GLARGINE SOLOSTAR 100 UNITS/ML 3 ML PEN SC SCH ×2 (09:00)
[2021-05-23 10:30] VITALS: BP 159/83; TEMP 98.2
--- NOTE | 2021-05-23 13:58 | Discharge Summary ---
Date of Service May 23, 2021 Admission HPI Per Admitting Provider DATE OF ADMISSION: 05/16/2021. CHIEF COMPLAINT: Questionable stroke-like symptom. HISTORY OF PRESENT ILLNESS: A 70-year-old male with past medical history significant for type 1 diabetes, history of paroxysmal atrial fibrillation, history of DKA, history of depression, history of mood disorder, chronic anemia, baseline hemoglobin 10-11, hypertension, bipolar disorder, left above-knee amputation. Currently in [facility]. The patient had COVID in 11/2019. Patient here yesterday because of some confusion, weakness and CT of the head was negative and is found to have UTI and he was given Rocephin and discharged on Keflex. Today, [facility] felt that he might have had a stroke and the patient was brought in here. The patient denies that he had a stroke. The patient has some questionable left facial droop, but is able to raise his brows. His CT of the head and CTA of the head and neck are okay. The patient is somewhat poor historian, alert and awake, knows his name, tell his date of , could not tell the time correctly. The patient denies any fever, chest pain, headache, blurred visions, no nausea, no vomiting, no abdominal pain. Normal bowel and bladder movements. He says he walks with a cane and sometimes he walks with a walker.In the ER, COVID came back as positive. As per the sister who has power of commercial litigation attorney he had COVID in 11/2019 and after that he had vaccines. He did not had a booster shot yet. Lyme screen , IgM was equivocal. . Currently, resting comfortably and hemodynamically stable. ALLERGIES: No known drug allergies. PAST MEDICAL HISTORY: As mentioned above. PAST SURGICAL HISTORY: Left above-knee amputations. FAMILY HISTORY: Could not obtain at this time. SOCIAL HISTORY: As per records, nonsmoker, no alcohol use. Currently lives at [facility]. REVIEW OF SYSTEMS: As per HPI, could not get complete review of systems as the patient is somewhat of a poor historian. Admission Exam Per Admitting Provider GENERAL: The patient is alert and awake, not in acute distress. VITAL SIGNS: Temperature afebrile, pulse 72, respirations 16, blood pressure 117/66, oxygen 99% on room air. HEENT: Pupils equal, round and reactive to light. Oral mucosa moist. NECK: No JVD or neck masses. CARDIOVASCULAR: S1 and S2 heard. Regular rate and rhythm. No murmur, no gall op. RESPIRATORY SYSTEM: Normal AP diameter possible. No accessory muscle use. No wheezing, no crackles. ABDOMEN: Soft, bowel sounds present, nontender, no distention. CENTRAL NERVOUS SYSTEM: Alert and awake, oriented to name only currently, questionable left facial droop. Power 5/5 in all extremities except 4/5 in left upper extremity. Obeys simple commands. Speech is clear. EXTREMITIES: No edema, no erythema. Principal Diagnosis Stroke Chronic weakness Paroxysmal A. fib Discharge Exam GENERAL: Alert and awake, NAD, on RA. Not able to fully cooperate due to cognitive status. Not able to engage in conversation. Generally weak. HEENT: No pallor, no icterus. Pupils equal, round and reactive to light. Oral mucosa moist. NECK: No JVD, no neck masses. HEART: S1 and S2 heard. Regular rate and rhythm. No murmur, no gallop. RESPIRATORY SYSTEM: Normal AP diameter. No accessory muscle use. No wheezing, no crackles. ABDOMEN: Soft, bowel sounds present, nontender, no distention. CENTRAL NERVOUS SYSTEM: No facial droop. Dysarthric. Generally weak. Obeys simple commands. Moves extremities. Full neuro exam not possible. EXTREMITIES: No edema RLE no erythema seen. Left BKA. Right foot toe s/p amputation. Discharge Data Allergies Allergy/AdvReac Type Severity Reaction Status Date / Time No Known Allergies Allergy Verified 05/16/21 15:57 Consultations 05/16/21 19:38 ED Decision to Admit Stat 05/17/21 08:00 Consult Neurology Routine 05/20/21 08:57 Consult Cardiology Routine Ordered Studies 05/16/21 15:03 CT angio head w con Stat CT angio neck with con Stat CT head/brain wo con Stat 05/19/21 09:36 MR brain wo/w con Routine Hospital Course (1) Stroke-like symptoms: (2) Weakness: A 70-year-old male with past medical history significant for type 1 diabetes, history of paroxysmal atrial fibrillation, history of DKA, history of depression, history of mood disorder, chronic anemia, baseline hemoglobin 10-11, hypertension, bipolar disorder, left above-knee amputation.From [facility]. [facility] with stroke like symptoms and was managed for the following while in the hospital: #. Stroke Has had ongoing weakness and was sent in from [facility] with possible strokelike symptoms Difficult to find out any significant neuro deficit by history and examination 05/19 brain MRI:Tiny foci of restricted diffusion in the right posterior internal capsule and left parafalcine white matter compatible with acute infarct. 04/16 echo: EF 60 to 65% with normal LV systolic function and mild concentric LVH. Grade 1 diastolic dysfunction. Neurology on board: Recommends cardiology for anticoagulation and cardioembolic evaluation. Cardiology consulted: Recommends switching aspirin to Plavix, continue with Eliquis. Continue with Plavix/Eliquis/statin #. Weakness: Has weakness which has been chronic PT/OT #. Lyme disease: Negative serology #. Possible UTI: UA consistent with UTI Patient started Rocephin 05/17 for concerns of lyme, will continue for total of 3-5 days to cover for UTI. Completed course of Rocephin for UTI. #. Paroxysmal A-fib: Rate is controlled Continue Eliquis #. Cognitive disorder: #. Uncontrolled type 1 diabetes mellitus with hyperglycemia: Continue current insulin And will put him on sliding scale insulin coverage #. COVID-19: He had Covid infection and november of 2019 Has had Covid vaccine but no booster yet He has had multiple negative Covid test in the past Patient turned Covid positive this admission but remained asymptomatic with regard to COVID. #. HTN (hypertension): Under goal, continue home meds DNR/DNI Patient being discharged to [facility]. Total Time Total Time Spent Total Time Spent (In Minutes): 35 Discharge Plan Discharge Items Patient Disposition: Hospice - Medical Facility Reason For Visit: NEURO SYMPTOMS Discharge Diagnosis: Stroke Chronic weakness Paroxysmal A. fib Activity: Resume your previous activity Non-emergency contact: Primary Care Provider Call non-emergency contact if: you have any medication questions and your symptoms worsen Follow-up/Referrals: STATE NIKOLAY CONN [Primary Care Provider] - Diet: Regular and Carb Count or DM1 Diet Comment: diet texture: minced and moist. Addtl Attending Provider Instructions: Patient being discharged to hospice at medical facility. Pending Studies at Discharge: No Stand-Alone [facility] Sk[facility] Items Patient informed of condition?: Yes DNR: Yes Discharge Level of Care: Other Communicable Disease: No Discharge Prognosis: Other Lines: None Urinary Catheter: No Medications and DC Order Prescriptions: New clopidogrel 75 mg Tablet 75 mg PO QAM Qty: 30 RF: 0 Continued atorvastatin 10 mg tablet 10 mg PO HS 30 Days Qty: 30 RF: 0 pantoprazole 40 mg tablet,delayed release (DR/EC) 40 mg PO QAM 30 Days Qty: 30 RF: 0 cholecalciferol (vitamin D3) 25 mcg (1,000 unit) Capsule 1,000 unit PO QAM 30 Days Qty: 30 RF: 0 metoprolol tartrate 25 mg Tablet 25 mg PO BID 30 Days Qty: 60 RF: 0 Eliquis 5 mg Tablet 5 mg PO BID 30 Days Qty: 60 RF: 0 ondansetron 4 mg tablet,disintegrating 4 mg PO Q8H PRN (Reason: nausea and vomiting) Qty: 10 RF: 0 losartan 50 mg tablet 50 mg PO QAM RF: 0 sennosides [senna] 8.6 mg tablet 8.6 mg PO QAM RF: 0 acetaminophen [Tylenol] 325 mg tablet 650 mg PO Q6H MDD 3 GRAMS/24 HOURS PRN (Reason: TEMP >100/PAIN) RF: 0 sertraline 50 mg tablet 75 mg PO QPM RF: 0 clonazepam 0.5 mg Tablet 0.5 mg PO Q6H PRN (Reason: Anxiety) RF: 0 dextrose 40 % Gel 1 ea PO UD PRN (Reason: Hypoglycemia) RF: 0 risperidone 0.25 mg Tablet 0.25 mg PO BID RF: 0 Glucerna Shake Liquid 1 ea PO BID RF: 0 insulin asp prt-insulin aspart [Novolog Mix 70-30FlexPen U-100] 100 unit/mL (70-30) insulin pen See Rx Instructions .ROUTE .COMPLEX RF: 0 Discontinued aspirin [Aspirin Low Dose] 81 mg tablet,delayed release (DR/EC) 81 mg PO QAM 30 Days Qty: 30 RF: 0 cephalexin 500 mg capsule 500 mg PO BID 7 Days Qty: 14 RF: 0 Discharge Orders: Discharge Order (Routine); Ordered 05/23/21 Ordered By: Jeanmarie Medina Admission Data Admit Date/Time: 05/16/21 23:01 Attending Provider: Jeanmarie Medina Admit Provider: Petros Apodaca Primary Care Provider: STATE FABIEN NIKOLAY Other Providers: Petros Apodaca ; Niki Olson ; Rafael Hernandez
== END 2021-05-23 12:42 | disposition hospice, home (50) | DRG 64 ==
LOC: ED 12:57 → SUATTDRO 23:01 → EDINP 23:01 → 2W 05-17 04:45

== ENCOUNTER 2021-07-08 09:08 | Inpatient (IN) ==
[2021-07-08] MEDS ORDERED: DEXTROSE 50% 50 ML SYRINGE IV ONE (11:10)
[2021-07-08] MEDS ORDERED: SODIUM CHLORIDE 0.9% 1000ML 500 ML IV ONE (12:08)
--- NOTE | 2021-07-08 12:09 | Emergency Department Note ---
History of Present Illness General Chief complaint: Hypoglycemia Stated complaint: Hypoglycemia Time Seen by Provider: 07/08/21 10:34 History of Present Illness 70-year-old male presents to the ED with a chief complaint of hypoglycemia and altered mental status. The staff at a local nursing facility found the patient to be hypoglycemic. EMS stated that the patient's blood sugar was 34. They gave D10 in route to the hospital here. The patient has had a recent cough and some rhonchi. Post D10 administration the blood sugar was 199. The nurse reported that his blood sugar was dropping and dropped down to 60 before I saw him. He was given additional D50 here. On my evaluation, the patient was somewhat altered and this was worse than what he had been when the nurse first evaluated him. She also had the blood pressure at 60/40 at 1 point. This improved to 138/83 without any specific therapy. The patient is a poor historian. Additional information obtainable at this time. He does have history of recent stroke that affected his left side of his body. Home Medications Medication Instructions Recorded Confirmed Type ondansetron 4 mg disintegrating 4 mg PO Q8H PRN #10 tab 07/28/20 07/08/21 Rx tablet risperidone 0.25 mg tablet 0.25 mg PO BID 05/15/21 07/08/21 History nut.tx.gluc.intol,lac-free,soy 1 ea PO BID 05/16/21 07/08/21 History (Glucerna Shake) clopidogrel 75 mg tablet 75 mg PO QAM #30 tab 05/23/21 07/08/21 Rx Promethazine Gel 25mg/Ml 1 ml TOPICAL Q6H PRN 07/08/21 07/08/21 History atropine 1 % eye drops 2 drp SUBLINGUAL Q1H PRN 07/08/21 07/08/21 History bisacodyl 10 mg rectal suppository 1 mg OK DAILY PRN 07/08/21 07/08/21 History (Dulcolax (bisacodyl)) insulin aspar prot-insulin aspart See Rx Instructions .ROUTE .COMPLEX 07/08/21 07/08/21 History 100 unit/mL (70-30) subcutaneous pen (Novolog Mix 70-30FlexPen U-100) lorazepam 2 mg/mL oral concentrate 1 mg SUBLINGUAL Q4H PRN 07/08/21 07/08/21 History morphine concentrate 100 mg/5 mL 10 mg SUBLINGUAL Q2H PRN 07/08/21 07/08/21 History (20 mg/mL) oral solution Allergies Allergy/AdvReac Type Severity Reaction Status Date / Time No Known Allergies Allergy Verified 07/08/21 09:59 Past Med/Surg History Medical History CHIVO (acute kidney injury) AMS (altered mental status) Bipolar 1 disorder Cognitive disorder COVID-19 Dehydration Depression Diabetes mellitus type 1 with complications HTN (hypertension) Hyperglycemia due to type 1 diabetes mellitus Paroxysmal A-fib Status post amputation of toe of left foot Vitamin D deficiency Surgical History Status post below-knee amputation of left lower extremity Family History Father Cancer Mother Alzheimer disease Grandfather (Maternal) Diabetes Other Family history unobtainable due to patient's condition Social History Smoking Status: Unknown if ever smoked Preferred Language: Mauritanian Communication Ability: Impaired Tear Down Matcher Required: No Beliefs That Will Affect Care: None marital status: Single Current Living Situation: Retirement Current Living Situation Comment: [facility] Feels Safe at Home: Yes Assistive Devices: None Review of Systems Unobtainable due to cognitive status Physical Exam Vital Signs Vital Signs - 24 hr 07/08/21 09:16 07/08/21 09:19 07/08/21 09:28 Temperature 36.4 C L Temperature Source Oral Pulse Rate 109 H 112 H Pulse Rate from SpO2 Sensor 110 H Pulse Rhythm Regular Pulse Strength Normal Respiratory Rate 23 25 H Respiratory Effort / Characteristics Non-Labored Spontaneous Respiratory Depth Normal Blood Pressure 100/67 Blood Pressure [Left Arm] Blood Pressure Mean 78 Blood Pressure Mean [Left Arm] Blood Pressure Position Sitting Blood Pressure Position [Left Arm] Pulse Oximetry 95 86 L 95 Oxygen Delivery Method Room Air Nasal Cannula Oxygen Flow Rate 4 Sepsis Recent Fever Within 48 Hours No Sepsis New/Unexplained Change in Mental Status N/A Sepsis Action Taken by Nursing No Action Required 07/08/21 09:30 07/08/21 10:00 07/08/21 10:30 Temperature Temperature Source Pulse Rate 104 H 102 H 117 H Pulse Rate from SpO2 Sensor 104 H 101 H 115 H Pulse Rhythm Pulse Strength Respiratory Rate 25 H 15 14 Respiratory Effort / Characteristics Respiratory Depth Blood Pressure Blood Pressure [Left Arm] Blood Pressure Mean Blood Pressure Mean [Left Arm] Blood Pressure Position Blood Pressure Position [Left Arm] Pulse Oximetry 95 96 92 Oxygen Delivery Method Oxygen Flow Rate Sepsis Recent Fever Within 48 Hours Sepsis New/Unexplained Change in Mental Status Sepsis Action Taken by Nursing 07/08/21 11:00 07/08/21 11:30 07/08/21 11:52 Temperature Temperature Source Pulse Rate 129 H 130 H Pulse Rate from SpO2 Sensor 129 H 131 H Pulse Rhythm Pulse Strength Respiratory Rate 25 H 38 H Respiratory Effort / Characteristics Respiratory Depth Blood Pressure 114/44 L 61/46 L Blood Pressure [Left Arm] 71/37 L Blood Pressure Mean 67 51 Blood Pressure Mean [Left Arm] 48 Blood Pressure Position Blood Pressure Position [Left Arm] Lying Pulse Oximetry 88 L 92 Oxygen Delivery Method Oxygen Flow Rate Sepsis Recent Fever Within 48 Hours Sepsis New/Unexplained Change in Mental Status Sepsis Action Taken by Nursing 07/08/21 11:55 07/08/21 12:01 07/08/21 12:30 Temperature Temperature Source Pulse Rate 128 H 126 H Pulse Rate from SpO2 Sensor 146 H 126 H Pulse Rhythm Pulse Strength Respiratory Rate 38 H 23 Respiratory Effort / Characteristics Respiratory Depth Blood Pressure 138/53 L 106/61 Blood Pressure [Left Arm] 135/64 Blood Pressure Mean 81 76 Blood Pressure Mean [Left Arm] 87 Blood Pressure Position Blood Pressure Position [Left Arm] Lying Pulse Oximetry 95 Oxygen Delivery Method Oxygen Flow Rate Sepsis Recent Fever Within 48 Hours Sepsis New/Unexplained Change in Mental Status Sepsis Action Taken by Nursing 07/08/21 13:00 07/08/21 13:33 07/08/21 14:00 Temperature Temperature Source Pulse Rate 117 H 108 H 116 H Pulse Rate from SpO2 Sensor 116 H 107 H 117 H Pulse Rhythm Pulse Strength Respiratory Rate 21 27 H 27 H Respiratory Effort / Characteristics Respiratory Depth Blood Pressure 111/53 L 132/59 L Blood Pressure [Left Arm] Blood Pressure Mean 72 83 Blood Pressure Mean [Left Arm] Blood Pressure Position Blood Pressure Position [Left Arm] Pulse Oximetry 96 93 97 Oxygen Delivery Method Oxygen Flow Rate Sepsis Recent Fever Within 48 Hours Sepsis New/Unexplained Change in Mental Status Sepsis Action Taken by Nursing 07/08/21 14:30 Temperature Temperature Source Pulse Rate 114 H Pulse Rate from SpO2 Sensor 114 H Pulse Rhythm Pulse Strength Respiratory Rate 26 H Respiratory Effort / Characteristics Respiratory Depth Blood Pressure 97/62 L Blood Pressure [Left Arm] Blood Pressure Mean 73 Blood Pressure Mean [Left Arm] Blood Pressure Position Blood Pressure Position [Left Arm] Pulse Oximetry 94 Oxygen Delivery Method Oxygen Flow Rate Sepsis Recent Fever Within 48 Hours Sepsis New/Unexplained Change in Mental Status Sepsis Action Taken by Nursing CONSTITUTIONAL/VITAL SIGNS: Reviewed / noted above. GENERAL: Non-toxic in appearance. INTEGUMENTARY: Warm, dry, and [place]. HEAD: Normocephalic. EYES: without scleral icterus or trauma. ENT/OROPHARYNX: clear and moist. LYMPHADENOPATHY/NECK: Is supple without lymphadenopathy or meningismus. RESPIRATORY: Clear to auscultation bilaterally. No increased work of breathing. CARDIOVASCULAR: Regular rate and rhythm. GI/ABDOMEN: Soft and nontender. No organomegaly or pulsatile mass. EXTREMITIES: Warm and well perfused. BACK: No CVA tenderness. NEUROLOGICAL: When I initially evaluated the patient, he was not following com mands well. He did not answer questions. This was a change from when he first came in. The patient seemed to not be able to move his left arm but did move his right arm. PSYCHIATRIC: normal affect. MUSCULOSKELETAL: Normally developed with good muscle tone. TRIAGE NURSING DOCUMENTATION REVIEWED. Course Administered Medications Discontinued Medications Dextrose (Dextrose 50% 50 Ml Syringe) Confirm Administered Dose 50 ml IV .STK- MED ONE Stop: 07/08/21 11:11 Last Admin: 07/08/21 11:14 Dose: 50 ml Documented by: [id number] Sodium Chloride (Nss 1000ml) 500 mls @ 999 mls/hr IV .Q31M ONE Stop: 07/08/21 12:38 Last Infusion: 07/08/21 13:44 Dose: 0 mls/hr Documented by: [id number] Admin: 07/08/21 12:20 Dose: 999 mls/hr Documented by: [id number] Ioversol (Optiray 320 125ml) 119 ml IV ONCE ONE Stop: 07/08/21 13:24 Last Admin: 07/08/21 13:28 Dose: 119 ml Documented by: [id number] Medical Decision Making Differential Diagnosis Differential includes acute coronary syndrome, myocardial infarction, CVA, TIA, anemia, infection, pneumonia, UTI, pyelonephritis, poor nutrition, dehydration, electrolyte disturbance,hypoglycemia. Medical Records Attestation: I reviewed the patient's medical records. Home Medications Current Medication List: was personally reviewed by me Laboratory Data Attestation: I reviewed the patient's lab results. Result diagrams: 07/08/21 12:00 07/08/21 12:00 Lab Results 07/08/21 07/08/21 07/08/21 Range/Units 09:18 10:04 11:06 WBC (4.8-10.8) K/uL RBC (4.7-6.1) M/uL Hgb (14.0-18.0) g/dL POC Hgb (14.0-18.0) g/dl Hct (42-52) % POC Hct (42-52) % MCV (80-100) fL MCH (25-34) pg MCHC (32-36) g/dL RDW Std Deviation (36.4-46.3) fL RDW Coeff of Jace (11.5-14.5) % Plt Count (130-400) K/uL MPV (7.4-10.4) fL Immature Gran % (Auto) % Neut % (Auto) % Lymph % (Auto) % [place] % (Auto) % Eos % (Auto) % Baso % (Auto) % Neut # (Auto) (1.4-6.5) K/uL Lymph # (Auto) (1.2-3.4) K/uL [place] # (Auto) (0.11-0.59) K/uL Eos # (Auto) (0-0.5) K/uL Baso # (Auto) (0-0.2) K/uL Immature Gran # (Auto) (0.00-0.02) K/uL PT INR APTT PTT Ratio POC Sodium (135-144) mmol/L Sodium (136-145) mmol/L POC Potassium (3.3-5.0) mmol/L Potassium (3.5-5.1) mmol/L POC Chloride (101-112) mmol/L Chloride (98-107) mmol/L Carbon Dioxide (21-32) mmol/L POC Total CO2 (24-31) mmol/L Anion Gap (3-11) POC Anion Gap (16-25) mmol/L POC BUN (7-18) mg/dl BUN (7-18) mg/dl Creatinine (0.6-1.4) mg/dl POC Creatinine (0.6-1.3) mg/dl Est Cr Clr Drug Dosing ml/min Est GFR ( Amer) ml/min Est GFR (Non-Af Amer) ml/min BUN/Creatinine Ratio (10-20) Glucose (70-99) mg/dl POC Glucose 158 H 117 H 65 L* (70-99) mg/dl POC Glucose (other) (70-99) mg/dl Calcium (8.5-10.1) mg/dl POC Ioniz Calcium Juan (1.12-1.32) mmol/l Magnesium (1.8-2.4) mg/dl Total Bilirubin (0.2-1) mg/dl AST (15-37) U/L ALT (12-78) Alkaline Phosphatase (45-117) U/L Troponin I (0-0.045) ng/ml Total Protein (6.4-8.2) gm/dl Albumin (3.4-5.0) gm/dl Globulin (2.5-4.0) gm/dl Albumin/Globulin Ratio (0.9-2) Specimen Hemolysis 07/08/21 07/08/21 07/08/21 Range/Units 11:08 11:34 12:00 WBC 5.98 (4.8-10.8) K/uL RBC 4.41 L (4.7-6.1) M/uL Hgb 13.0 L (14.0-18.0) g/dL POC Hgb (14.0-18.0) g/dl Hct 40.1 L (42-52) % POC Hct (42-52) % MCV 90.9 (80-100) fL MCH 29.5 (25-34) pg MCHC 32.4 (32-36) g/dL RDW Std Deviation 54.1 H (36.4-46.3) fL RDW Coeff of Jace 16.2 H (11.5-14.5) % Plt Count 522 H (130-400) K/uL MPV 9.5 (7.4-10.4) fL Immature Gran % (Auto) 0.2 % Neut % (Auto) 84.5 % Lymph % (Auto) 13.4 % [place] % (Auto) 1.5 % Eos % (Auto) 0.2 % Baso % (Auto) 0.2 % Neut # (Auto) 5.06 (1.4-6.5) K/uL Lymph # (Auto) 0.80 L (1.2-3.4) K/uL [place] # (Auto) 0.09 L (0.11-0.59) K/uL Eos # (Auto) 0.01 (0-0.5) K/uL Baso # (Auto) 0.01 (0-0.2) K/uL Immature Gran # (Auto) 0.01 (0.00-0.02) K/uL PT INR APTT PTT Ratio POC Sodium (135-144) mmol/L Sodium (136-145) mmol/L POC Potassium (3.3-5.0) mmol/L Potassium (3.5-5.1) mmol/L POC Chloride (101-112) mmol/L Chloride (98-107) mmol/L Carbon Dioxide (21-32) mmol/L POC Total CO2 (24-31) mmol/L Anion Gap (3-11) POC Anion Gap (16-25) mmol/L POC BUN (7-18) mg/dl BUN (7-18) mg/dl Creatinine (0.6-1.4) mg/dl POC Creatinine (0.6-1.3) mg/dl Est Cr Clr Drug Dosing ml/min Est GFR ( Amer) ml/min Est GFR (Non-Af Amer) ml/min BUN/Creatinine Ratio (10-20) Glucose (70-99) mg/dl POC Glucose 60 L* 173 H (70-99) mg/dl POC Glucose (other) (70-99) mg/dl Calcium (8.5-10.1) mg/dl POC Ioniz Calcium Juan (1.12-1.32) mmol/l Magnesium (1.8-2.4) mg/dl Total Bilirubin (0.2-1) mg/dl AST (15-37) U/L ALT (12-78) Alkaline Phosphatase (45-117) U/L Troponin I (0-0.045) ng/ml Total Protein (6.4-8.2) gm/dl Albumin (3.4-5.0) gm/dl Globulin (2.5-4.0) gm/dl Albumin/Globulin Ratio (0.9-2) Specimen Hemolysis 07/08/21 07/08/21 07/08/21 Range/Units 12:00 12:00 12:04 WBC (4.8-10.8) K/uL RBC (4.7-6.1) M/uL Hgb (14.0-18.0) g/dL POC Hgb (14.0-18.0) g/dl Hct (42-52) % POC Hct (42-52) % MCV (80-100) fL MCH (25-34) pg MCHC (32-36) g/dL RDW Std Deviation (36.4-46.3) fL RDW Coeff of Jace (11.5-14.5) % Plt Count (130-400) K/uL MPV (7.4-10.4) fL Immature Gran % (Auto) % Neut % (Auto) % Lymph % (Auto) % [place] % (Auto) % Eos % (Auto) % Baso % (Auto) % Neut # (Auto) (1.4-6.5) K/uL Lymph # (Auto) (1.2-3.4) K/uL [place] # (Auto) (0.11-0.59) K/uL Eos # (Auto) (0-0.5) K/uL Baso # (Auto) (0-0.2) K/uL Immature Gran # (Auto) (0.00-0.02) K/uL PT Cancelled INR Cancelled APTT Cancelled PTT Ratio Cancelled POC Sodium (135-144) mmol/L Sodium 141 (136-145) mmol/L POC Potassium (3.3-5.0) mmol/L Potassium 4.3 (3.5-5.1) mmol/L POC Chloride (101-112) mmol/L Chloride 106 (98-107) mmol/L Carbon Dioxide 25 (21-32) mmol/L POC Total CO2 (24-31) mmol/L Anion Gap 10.0 (3-11) POC Anion Gap (16-25) mmol/L POC BUN (7-18) mg/dl BUN 23 H (7-18) mg/dl Creatinine 1.71 H (0.6-1.4) mg/dl POC Creatinine (0.6-1.3) mg/dl Est Cr Clr Drug Dosing 38.0 ml/min Est GFR ( Amer) 46.3 ml/min Est GFR (Non-Af Amer) 40.0 ml/min BUN/Creatinine Ratio 13.6 (10-20) Glucose 152 H (70-99) mg/dl POC Glucose 141 H (70-99) mg/dl POC Glucose (other) (70-99) mg/dl Calcium 9.9 (8.5-10.1) mg/dl POC Ioniz Calcium Juan (1.12-1.32) mmol/l Magnesium 2.3 (1.8-2.4) mg/dl Total Bilirubin 0.8 (0.2-1) mg/dl AST 17 (15-37) U/L ALT 19 (12-78) Alkaline Phosphatase 117 (45-117) U/L Troponin I < 0.015 (0-0.045) ng/ml Total Protein 8.2 (6.4-8.2) gm/dl Albumin 3.1 L (3.4-5.0) gm/dl Globulin 5.1 H (2.5-4.0) gm/dl Albumin/Globulin Ratio 0.6 L (0.9-2) Specimen Hemolysis 07/08/21 07/08/21 07/08/21 Range/Units 12:06 13:07 13:38 WBC (4.8-10.8) K/uL RBC (4.7-6.1) M/uL Hgb (14.0-18.0) g/dL POC Hgb 13.3 L (14.0-18.0) g/dl Hct (42-52) % POC Hct 39 L (42-52) % MCV (80-100) fL MCH (25-34) pg MCHC (32-36) g/dL RDW Std Deviation (36.4-46.3) fL RDW Coeff of Jace (11.5-14.5) % Plt Count (130-400) K/uL MPV (7.4-10.4) fL Immature Gran % (Auto) % Neut % (Auto) % Lymph % (Auto) % [place] % (Auto) % Eos % (Auto) % Baso % (Auto) % Neut # (Auto) (1.4-6.5) K/uL Lymph # (Auto) (1.2-3.4) K/uL [place] # (Auto) (0.11-0.59) K/uL Eos # (Auto) (0-0.5) K/uL Baso # (Auto) (0-0.2) K/uL Immature Gran # (Auto) (0.00-0.02) K/uL PT 10.0 INR 1.0 APTT 20.6 L PTT Ratio 0.8 POC Sodium 142 (135-144) mmol/L Sodium (136-145) mmol/L POC Potassium 4.3 (3.3-5.0) mmol/L Potassium (3.5-5.1) mmol/L POC Chloride 105 (101-112) mmol/L Chloride (98-107) mmol/L Carbon Dioxide (21-32) mmol/L POC Total CO2 25 (24-31) mmol/L Anion Gap (3-11) POC Anion Gap 17.0 (16-25) mmol/L POC BUN 26 H (7-18) mg/dl BUN (7-18) mg/dl Creatinine (0.6-1.4) mg/dl POC Creatinine 1.0 (0.6-1.3) mg/dl Est Cr Clr Drug Dosing ml/min Est GFR ( Amer) ml/min Est GFR (Non-Af Amer) ml/min BUN/Creatinine Ratio (10-20) Glucose (70-99) mg/dl POC Glucose 110 H (70-99) mg/dl POC Glucose (other) 151 H (70-99) mg/dl Calcium (8.5-10.1) mg/dl POC Ioniz Calcium Juan 1.21 (1.12-1.32) mmol/l Magnesium (1.8-2.4) mg/dl Total Bilirubin (0.2-1) mg/dl AST (15-37) U/L ALT (12-78) Alkaline Phosphatase (45-117) U/L Troponin I (0-0.045) ng/ml Total Protein (6.4-8.2) gm/dl Albumin (3.4-5.0) gm/dl Globulin (2.5-4.0) gm/dl Albumin/Globulin Ratio (0.9-2) Specimen Hemolysis Imaging Data Radiologist's Impression: Chest X-Ray 12/24/21 12:08 XR chest 1V portable CLINICAL HISTORY: Stroke Like Symptoms TECHNIQUE: Single frontal radiograph of the chest was obtained. Comparison: Comparison is made to chest one view 05/16/2021 FINDINGS: No lines and tubes are seen. The cardiomediastinal silhouette is normal. Left greater than right airspace opacities are seen. No evidence of pleural effusion or pneumothorax. Old healed right rib fractures are seen. IMPRESSION: Left greater than right airspace opacities may represent atelectasis, pneumonia, and/or aspiration. ACT 112: Negative or not required by law. Electronically signed by: Anderson Bradley M.D. 07/08/2021 12:[address] 07/08/21 12:08 CT head/brain wo con CLINICAL HISTORY: Stroke Like Symptoms Technique: Contiguous axial CT images of the head were acquired from the base of the skull to the vertex without intravenous contrast administration. Images were viewed in brain, subdural and bone windows. Automated dose lowering techniques and/or adjustment according to patient size were utilized for this exam. Comparison: Comparison is made to CTA head and neck 05/16/2021 Findings: Areas of decreased attenuation are present in the periventricular and subcortical white matter bilaterally consistent with small vessel ischemic disease. Generalized cerebral atrophy with commensurate enlargement of the ventricles, sulci, and cisterns is also present. There is no acute intracranial hemorrhage or evidence of acute territorial infarction. No shift of the midline structures, mass effect, or extra-axial abnormalities are shown. Atherosclerotic calcifications are present in the intracranial segments of the internal carotid arteries. Calcification of the falx is noted. Old lacunar infarct is noted in the left lentiform nucleus. Imaged portions of the paranasal sinuses and mastoid air cells are clear. The orbits appear normal. There are no acute fractures of the calvaria or scalp swelling. Impression: No acute intracranial hemorrhage, no evidence of acute territorial infarction or other acute intracranial disease process. ACT 112: Negative or not required by law. Electronically signed by: Anderson Bradley M.D. 07/08/2021 1:30 PM Head CTA 07/08/21 12:08 CT angio neck with con, CT angio head w con CLINICAL HISTORY: 70 years-old Male with Stroke Like Symptoms. Acute strokelike symptoms with history of 65% stenosis of the proximal right ICA. COMPARISON STUDY: Head CT and chest radiograph of same day, CTA head and neck 05/16/2021 TECHNIQUE: Following the IV administration of 119 mL of Optiray, CT angiogram of the head and neck was performed from the aortic arch to the skull apex. Images are reviewed in the axial, sagittal, and coronal planes. 3-D MIPS images are created and assessed. IV contrast was administered without complication. All measurements were calculated based on NASCET criteria. A dose lowering technique was utilized adhering to the principles of ALARA. CT DOSE: 2316.39 mGy.cm FINDINGS: Three-vessel morphology of the thoracic aortic arch. Patent innominate and imaged subclavian arteries. The common carotid arteries are patent bilaterally. Moderate atherosclerotic plaque of the right carotid bulb and proximal right ICA is redemonstrated which again results in approximately 60-65% luminal narrowing of the proximal cervical segment. Atherosclerotic plaque of the cavernous and supraclinoid segments results in narrowing measuring up to approximately 50%. The middle and anterior cerebral arteries are patent. The vertebral arteries are codominant and appear widely patent. Mild luminal irregularity of the distal vertebral arteries is likely secondary to atherosclerotic vascular disease. The basilar and posterior cerebral arteries are also patent. Cerebral venous sinuses are patent. There is no abnormal intracranial enhancement. Age-related involutional changes with chronic microvascular ischemic disease. 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 Groundglass opacities are noted throughout the left lung. Unremarkable soft tissues of the neck. Dural calcifications are again noted. Healed chronic fracture deformity of the left clavicle. IMPRESSION: 1. Moderate atherosclerotic plaque of the right carotid bulb redemonstrated resulting in approximately 60-65% stenosis of the proximal cervical segment right ICA which is unchanged. 2. Otherwise unremarkable CTA of the head and neck. 3. Chronic intracranial findings. 4. Groundglass opacities of the imaged left lung are suggestive of pneumonia. ACT 112: Negative or not required by law. The above report was generated using voice recognition software. It may contain grammatical, syntax or spelling errors. Electronically signed by: Esteban Romero M.D. 07/08/2021 1:44 PM Neck CTA 07/08/21 12:08 CT angio neck with con, CT angio head w con CLINICAL HISTORY: 70 years-old Male with Stroke Like Symptoms. Acute strokelike symptoms with history of 65% stenosis of the proximal right ICA. COMPARISON STUDY: Head CT and chest radiograph of same day, CTA head and neck 05/16/2021 TECHNIQUE: Following the IV administration of 119 mL of Optiray, CT angiogram of the head and neck was performed from the aortic arch to the skull apex. Images are reviewed in the axial, sagittal, and coronal planes. 3-D MIPS images are created and assessed. IV contrast was administered without complication. All measurements were calculated based on NASCET criteria. A dose lowering technique was utilized adhering to the principles of ALARA. CT DOSE: 2316.39 mGy.cm FINDINGS: Three-vessel morphology of the thoracic aortic arch. Patent innominate and imaged subclavian arteries. The common carotid arteries are patent bilaterally. Moderate atherosclerotic plaque of the right carotid bulb and proximal right ICA is redemonstrated which again results in approximately 60-65% luminal narrowing of the proximal cervical segment. Atherosclerotic plaque of the cavernous and supraclinoid segments results in narrowing measuring up to approximately 50%. The middle and anterior cerebral arteries are patent. The vertebral arteries are codominant and appear widely patent. Mild luminal irregularity of the distal vertebral arteries is likely secondary to atherosclerotic vascular disease. The basilar and posterior cerebral arteries are also patent. Cerebral venous sinuses are patent. There is no abnormal intracranial enhancement. Age-related involutional changes with chronic microvascular ischemic disease. 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 Groundglass opacities are noted throughout the left lung. Unremarkable soft tissues of the neck. Dural calcifications are again noted. Healed chronic fracture deformity of the left clavicle. IMPRESSION: 1. Moderate atherosclerotic plaque of the right carotid bulb redemonstrated resulting in approximately 60-65% stenosis of the proximal cervical segment right ICA which is unchanged. 2. Otherwise unremarkable CTA of the head and neck. 3. Chronic intracranial findings. 4. Groundglass opacities of the imaged left lung are suggestive of pneumonia. ACT 112: Negative or not required by law. The above report was generated using voice recognition software. It may contain grammatical, syntax or spelling errors. Electronically signed by: Esteban Romero M.D. 07/08/2021 1:44 PM ECG Data Attestation: I personally reviewed and interpreted this ECG as follows: Additional Comments: Twelve-lead EKG: Per my interpretation there is a sinus tach at a rate of 122. No ST elevation. No PVCs. MDM Narrative 70-year-old male presents to the ED with a chief complaint of hypoglycemia. The patient's presentation was somewhat odd as he was hypoglycemic for EMS, received IV glucose and became hypoglycemic again while here and received additional glucose. He also had 1 hypotensive episode and at least one episode where he was hypoxic with saturations of 88%. The patient had an episode where he became altered from his baseline and seemed like he was having some strokelike symp toms. CT angiogram of the head and neck did not show any significant change from his previous CT scans from his previous recent stroke. His chest x-ray is suggestive of a left greater than right pneumonia. His troponin was negative. Renal function is slightly elevated. EKG showed a sinus tach. The patient was treated with IV antibiotics. He was also given some IV fluids. Because of his unusual presentation, he will be seen by the hospitalist for further inpatient evaluation and care. Impression & Plan Pneumonia of both lungs, Hypoglycemia, Altered mental status Discharge Plan Visit Data Chief Complaint: Hypoglycemia Stated Complaint: Hypoglycemia ED Provider: Forrest Leonard Discharge Problem: Pneumonia of both lungs, Hypoglycemia, Altered mental status Patient Disposition: Admitted As Inpatient Forms Stand Alone Forms: [facility] Prescriptions Prescriptions: No Action ondansetron 4 mg tablet,disintegrating 4 mg PO Q8H PRN (Reason: nausea and vomiting) Qty: 10 RF: 0 risperidone 0.25 mg Tablet 0.25 mg PO BID RF: 0 Glucerna Shake Liquid 1 ea PO BID RF: 0 clopidogrel 75 mg Tablet 75 mg PO QAM Qty: 30 RF: 0 insulin asp prt-insulin aspart [Novolog Mix 70-30FlexPen U-100] 100 unit/mL (70-30) insulin pen See Rx Instructions .ROUTE .COMPLEX RF: 0 morphine concentrate 100 mg/5 mL (20 mg/mL) solution 10 mg sublingual Q2H PRN (Reason: Pain~Respiratory Distress) RF: 0 bisacodyl [Dulcolax (bisacodyl)] 10 mg suppository 1 mg [place] DAILY PRN (Reason: Constipation) RF: 0 atropine 1 % drops 2 drp sublingual Q1H PRN (Reason: Relief terminal secrtions) RF: 0 lorazepam 2 mg/mL Concentrate 1 mg SUBLINGUAL Q4H PRN (Reason: relief/anxiety) RF: 0 Promethazine Gel 25mg/Ml 1 ml topical Q6H PRN (Reason: Nausea And Vomiting) RF: 0 Referrals Referrals: [facility] [Primary Care Provider] -
[2021-07-08 12:19] LABS: iSTAT Hemoglobin 13.3 g/dl (14.0-18.0); iSTAT Ionized Calcium 1.21 mmol/l (1.12-1.32); iSTAT Potassium 4.3 mmol/L (3.3-5.0)
[2021-07-08 12:27] LABS: Basophils # (auto) 0.01 K/uL (0-0.2); Basophils % (auto) 0.2 %; Eosinophils # (auto) 0.01 K/uL (0-0.5); Eosinophils % (auto) 0.2 %; Hematocrit (blood only) 40.1 % (42-52); Immature Granulocytes # (auto) 0.01 K/uL (0.00-0.02); Immature Granulocytes % (auto) 0.2 %; Lymphocytes % (auto) 13.4 %; Mean Corpuscular Hemoglobin 29.5 pg (25-34); Mean Corpuscular Hgb Conc 32.4 g/dL (32-36); Mean Corpuscular Volume 90.9 fL (80-100); Mean Platelet Volume 9.5 fL (7.4-10.4); Monocytes # (auto) 0.09 K/uL (0.11-0.59); Monocytes % (auto) 1.5 %; Neutrophils # (auto) 5.06 K/uL (1.4-6.5); Neutrophils % (auto) 84.5 %; Platelet Count 522 K/uL (130-400); RDW Coefficient of Variation 16.2 % (11.5-14.5); RDW Standard Deviation 54.1 fL (36.4-46.3); Red Blood Count 4.41 M/uL (4.7-6.1); White Blood Count 5.98 K/uL (4.8-10.8)
[2021-07-08 12:41] LABS: Albumin Level 3.1 gm/dl (3.4-5.0); Aspartate Aminotransferase 17 U/L (15-37); BUN Creatinine Ratio 13.6 (10-20); Blood Urea Nitrogen 23 mg/dl (7-18); Calcium 9.9 mg/dl (8.5-10.1); Carbon Dioxide 25 mmol/L (21-32); Chloride 106 mmol/L (98-107); Est GFR (African American) 46.3 ml/min; Glucose 152 mg/dl (70-99); Magnesium 2.3 mg/dl (1.8-2.4); Potassium 4.3 mmol/L (3.5-5.1); Sodium 141 mmol/L (136-145)
--- NOTE | 2021-07-08 12:45 | XRay Report ---
XR chest 1V portable CLINICAL HISTORY: Stroke Like Symptoms TECHNIQUE: Single frontal radiograph of the chest was obtained. Comparison: Comparison is made to chest one view 05/16/2021 FINDINGS: No lines and tubes are seen. The cardiomediastinal silhouette is normal. Left greater than right airs pace opacities are seen. No evidence of pleural effusion or pneumothorax. Old healed right rib fractu res are seen. IMPRESSION: Left greater than right airspace opacities may represent atelectasis, pneumonia, and/or aspiration. ACT 112: Negative or not required by law. Electronically signed by: Anderson Bradley M.D. 07/08/2021 12:44 PM
[2021-07-08 12:49] LABS: Alanine Aminotransferase 19 (12-78); Albumin Globulin Ratio 0.6 (0.9-2); Alkaline Phosphatase 117 U/L (45-117); Bilirubin,Total 0.8 mg/dl (0.2-1); Globulin 5.1 gm/dl (2.5-4.0); Total Protein 8.2 gm/dl (6.4-8.2); Troponin I < 0.015 ng/ml (0-0.045)
[2021-07-08] MEDS ORDERED: OPTIRAY 320 125ml IV ONE (13:23)
--- NOTE | 2021-07-08 13:33 | CT Scan Report ---
CT head/brain wo con CLINICAL HISTORY: Stroke Like Symptoms Technique: Contiguous axial CT images of the head were acquired from the base of the skull to the surya zora without intravenous contrast administration. Images were viewed in brain, subdural and bone [facility]. Automated dose lowering techniques and/or adjustment according to patient size were utilized for this exam. Comparison: Comparison is made to CTA head and neck 05/16/2021 Findings: Areas of decreased attenuation are present in the periventricular and subcortical white matter bilate rally consistent with small vessel ischemic disease. Generalized cerebral atrophy with commensurate e nlargement of the ventricles, sulci, and cisterns is also present. There is no acute intracranial hem orrhage or evidence of acute territorial infarction. No shift of the midline structures, mass effect, or extra-axial abnormalities are shown. Atherosclerotic calcifications are present in the intracran ial segments of the internal carotid arteries. Calcification of the falx is noted. Old lacunar infarc t is noted in the left lentiform nucleus. Imaged portions of the paranasal sinuses and mastoid air cells are clear. The orbits appear normal. There are no acute fractures of the calvaria or scalp swelling. Impression: No acute intracranial hemorrhage, no evidence of acute territorial infarction or other acute intracra nial disease process. ACT 112: Negative or not required by law. Electronically signed by: Anderson Bradley M.D. 07/08/2021 1:30 PM
[2021-07-08 13:35] LABS: Partial Thromboplastin Ratio 0.8; Partial Thromboplastin Time 20.6 Seconds (21.0-31.0)
--- NOTE | 2021-07-08 13:46 | CT Scan Report ---
CT angio neck with con, CT angio head w con CLINICAL HISTORY: 70 years-old Male with Stroke Like Symptoms. Acute strokelike symptoms with hist ory of 65% stenosis of the proximal right ICA. COMPARISON STUDY: Head CT and chest radiograph of same day, CTA head and neck 05/16/2021 TECHNIQUE: Following the IV administration of 119 mL of Optiray, CT angiogram of the head and neck wa s performed from the aortic arch to the skull apex. Images are reviewed in the axial, sagittal, and c oronal planes. 3-D MIPS images are created and assessed. IV contrast was administered without complic ation. All measurements were calculated based on NASCET criteria. A dose lowering technique was util ized adhering to the principles of ALARA. CT DOSE: 2316.39 mGy.cm FINDINGS: Three-vessel morphology of the thoracic aortic arch. Patent innominate and imaged subclavian arteries . The common carotid arteries are patent bilaterally. Moderate atherosclerotic plaque of the right ca rotid bulb and proximal right ICA is redemonstrated which again results in approximately 60-65% lumin al narrowing of the proximal cervical segment. Atherosclerotic plaque of the cavernous and supraclino id segments results in narrowing measuring up to approximately 50%. The middle and anterior cerebral arteries are patent. The vertebral arteries are codominant and appear widely patent. Mild luminal irregularity of the dist al vertebral arteries is likely secondary to atherosclerotic vascular disease. The basilar and hydraulic jack adjuster ior cerebral arteries are also patent. Cerebral venous sinuses are patent. There is no abnormal intra cranial enhancement. Age-related involutional changes with chronic microvascular ischemic disease. 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 Groundglass opacities are noted throughout the left lung. Unremarkable soft tissue s of the neck. Dural calcifications are again noted. Healed chronic fracture deformity of the left cl avicle. IMPRESSION: 1. Moderate atherosclerotic plaque of the right carotid bulb redemonstrated resulting in approximatel y 60-65% stenosis of the proximal cervical segment right ICA which is unchanged. 2. Otherwise unremarkable CTA of the head and neck. 3. Chronic intracranial findings. 4. Groundglass opacities of the imaged left lung are suggestive of pneumonia. ACT 112: Negative or not required by law. The above report was generated using voice recognition software. It may contain grammatical, syntax o r spelling errors. Electronically signed by: Esteban Romero M.D. 07/08/2021 1:44 PM
[2021-07-08] MEDS ORDERED: CEFEPIME 2,000 MG/20 ML VIAL IV STA (14:48)
[2021-07-08] MEDS ORDERED: D5W AND NSS 1,000 ML IV SCH (15:30)
[2021-07-08] MEDS ORDERED: CONSULT PHARMACY STA (15:59)
--- NOTE | 2021-07-08 16:00 | History & Physical Report ---
Date of Service July 08, 2021 Assessment & Plan (1) Sepsis: (2) Pneumonia of both lungs: Plan: Patient is 70-year-old male with PMH DM, paroxysmal atrial fibrillation, depression, mood disorder, chronic anemia, HTN, h/o above knee amputation presented to ER from [facility] for hypoglycemia and altered mental status. CT head was obtained with no acute findings. During ER course patient continued to have altered mental status. ER staff reports that [facility] had stated that patient had some cough and there was concern for possible aspiration. Today in ER patient afebrile, P: 112, R: 25, BP 100/67 down to 61/46 and up to 97/62. Initially 86% on room air up to 94% on 4 L via nasal cannula. No leukocytosis. Chest x-ray with left greater than right opacities In ER given 500 mL NSS, cefepime Patient meets sirs criteria + source-pneumonia Possible aspiration Blood cultures pending Lactate: 1.3. Procalcitonin: 6.8 Obtain MRSA swab, plan to add coverage if positive Zosyn IVF Speech consult (3) Hypoglycemia: Plan: H/O DM A1c: 9.6 on 05/17/2021 Outpatient BSG of 36 reported today. EMS gave D10 with BSG up to 99 which further dropped to 60 in ER and was given amp of D50. Further dropping of glucose in ER to 30's and given another dose dextrose It is unknown if patient had his insulin or any food this morning Hypoglycemia may be secondary to underlying sepsis versus insulin use Start NSS plus D5 W Monitor BSG frequently Hold insulin at this time (4) Metabolic encephalopathy: Plan: Patient with altered mental status. Likely secondary to hypoglycemia, underlying infection. Possible CVA Treat infection and hypoglycemia as above Monitor POSSIBLE ACUTE CVA H/O CVA Hospitalization in 05/2021. At that time MRI showed acute infarct right posterior internal capsule and left parafalcine. His aspirin was changed to Plavix and Eliquis was continued. Med rec sent with patient today does not show that patient is on any Eliquis or statin. Unable to contact [facility] at this time. Continue Plavix We will place on SQ heparin. Will need to readdress Eliquis throughout hospitalization MRI brain r/o CVA Consider neuro consult Paroxysmal atrial fibrillation Previously was discharged on Eliquis. Is uncertain if patient is currently on Eliquis Monitor on telemetry Subcu heparin for now CHIVO Cr: 1.7 IVF Monitor renal function, avoid nephrotoxic agents when possible h/o depression, bipolar Continue risperidone DVT Prophylaxis SQ Heparin DNR/DNI as per paperwork from [facility] Pt was seen and care coordinated with Dr Mitchell. See addendum History of Present Illness Chief Complaint: hypoglycemia Primary Care Provider: [facility] Patient is 70-year-old male with PMH DM, paroxysmal atrial fibrillation, depression, mood disorder, chronic anemia, HTN, h/o above knee amputation presented to ER from [facility] for hypoglycemia and altered mental status. History is obtained from ER staff and prior notes. I Attempted to call [facility] however no answer. Patient with history of hospitalization 05/17-05/23/2021 for strokelike symptoms and possible UTI. At that time MRI showed acute infarct right posterior internal capsule and left parafalcine. His aspirin was changed to Plavix and Eliquis was continued. Med rec sent with patient today does not show that patient is on any Eliquis or statin. It is unknown if patient had his insulin or any food this morning. It is reported that today patient had BSG of 36. It is reported EMS gave D10 with BSG up to 99 which further dropped to 60 in ER and was given amp of D50. While in ER it is reported patient became more confused and was not moving his left side and at that time BSG was checked and was not hypoglycemic. CT head was obtained with no acute findings. During ER course patient continued to have altered mental status. ER staff reports that [facility] had stated that patient had some cough and there was concern for possible aspiration. Today in ER patient afebrile, P: 112, R: 25, BP 100/67 down to 61/46 and up to 97/62. Initially 86% on room air up to 94% on 4 L via nasal cannula. No leukocytosis. Chest x-ray with left greater than right opacities In ER given 500 mL NSS, cefepime, dextrose 50 mL Allergies Allergy/AdvReac Type Severity Reaction Status Date / Time No Known Allergies Allergy Verified 07/08/21 09:59 Home Medications Medication Instructions Recorded Confirmed Type ondansetron 4 mg disintegrating 4 mg PO Q8H PRN #10 tab 07/28/20 07/08/21 Rx tablet risperidone 0.25 mg tablet 0.25 mg PO BID 05/15/21 07/08/21 History nut.tx.gluc.intol,lac-free,soy 1 ea PO BID 05/16/21 07/08/21 History (Glucerhaley Watts) clopidogrel 75 mg tablet 75 mg PO QAM #30 tab 05/23/21 07/08/21 Rx Promethazine Gel 25mg/Ml 1 ml TOPICAL Q6H PRN 07/08/21 07/08/21 History atropine 1 % eye drops 2 drp SUBLINGUAL Q1H PRN 07/08/21 07/08/21 History bisacodyl 10 mg rectal suppository 1 mg [place] DAILY PRN 07/08/21 07/08/21 History (Dulcolax (bisacodyl)) insulin aspar prot-insulin aspart See Rx Instructions .ROUTE .COMPLEX 07/08/21 07/08/21 History 100 unit/mL (70-30) subcutaneous pen (Novolog Mix 70-30FlexPen U-100) lorazepam 2 mg/mL oral concentrate 1 mg SUBLINGUAL Q4H PRN 07/08/21 07/08/21 History morphine concentrate 100 mg/5 mL 10 mg SUBLINGUAL Q2H PRN 07/08/21 07/08/21 History (20 mg/mL) oral solution Past Med/Surg History Medical History CHIVO (acute kidney injury) AMS (altered mental status) Bipolar 1 disorder Cognitive disorder COVID-19 Dehydration Depression Diabetes mellitus type 1 with complications HTN (hypertension) Hyperglycemia due to type 1 diabetes mellitus Paroxysmal A-fib Status post amputation of toe of left foot Vitamin D deficiency Surgical History Status post below-knee amputation of left lower extremity Family History (Updated 07/08/21 @ 19:53 by Neena Burroughs PA-C) Father Cancer Mother Alzheimer disease Grandfather (Maternal) Diabetes Social History Smoking Status: Unknown if ever smoked Preferred Language: Kenyan Communication Ability: Impaired Rn Occupational Required: No Beliefs That Will Affect Care: None marital status: Single Current Living Situation: [facility] Current Living Situation Comment: [facility] Feels Safe at Home: Yes Assistive Devices: None Review of Systems Review of Systems: Unobtainable due to cognitive status Physical Exam Physical Exam: General: no noted distress on current oxygen, appears chronically ill Head: normocephalic, atraumatic Eyes: PERRL, unable to test EOM's, conjunctiva non-injected, anicteric ENT: normal inspection external ears, nose, mucous membranes mildly dry Neck: supple, trachea midline Lungs: diminished breath sounds throughout, currently on 4L oxygen via NC with sat 94% CV: tachycardia, no pretibial edema Abd: normal BS, soft, non-tender Ext: no cyanosis, no calf tenderness, + above-knee amputation noted, +toe amputation noted Neuro: Awake, does not answer questions, only says "don't do that" when his BP cuff inflates, Pt partially protrudes tongue, does not cooperate/participate in any further neuro testing at this time, Skin: warm, dry Results & Data Results & Data ([facility]) Vital Signs (Past 12 Hours) Vital Signs Temp Pulse Resp BP BP Pulse Ox 07/08/21 14:30 114 H 26 H 97/62 L 94 07/08/21 14:00 116 H 27 H 97 07/08/21 13:33 108 H 27 H 132/59 L 93 07/08/21 13:00 117 H 21 111/53 L 96 07/08/21 12:30 126 H 23 106/61 95 07/08/21 12:01 128 H 38 H 138/53 L 07/08/21 11:55 135/64 07/08/21 11:52 71/37 L 07/08/21 11:30 130 H 38 H 61/46 L 92 07/08/21 11:00 129 H 25 H 114/44 L 88 L 07/08/21 10:30 117 H 14 92 07/08/21 10:00 102 H 15 96 07/08/21 09:30 104 H 25 H 95 07/08/21 09:28 95 07/08/21 09:19 36.4 C L 112 H 25 H 100/67 86 L 07/08/21 09:16 109 H 23 95 Laboratory Results Short CBC 07/08/21 07/08/21 Range/Units 12:00 12:00 WBC 5.98 (4.8-10.8) K/uL Hgb 13.0 L (14.0-18.0) g/dL Hct 40.1 L (42-52) % Plt Count 522 H (130-400) K/uL Creatinine 1.71 H (0.6-1.4) mg/dl Est GFR ( Amer) 46.3 ml/min BMP 07/08/21 12:00 Sodium 141 Potassium 4.3 Chloride 106 Carbon Dioxide 25 BUN 23 H Creatinine 1.71 H Glucose 152 H Calcium 9.9 Cardiac Enzymes 07/08/21 Range/Units 12:00 Troponin I < 0.015 (0-0.045) ng/ml Liver Function 07/08/21 Range/Units 12:00 Total Bilirubin 0.8 (0.2-1) mg/dl AST 17 (15-37) U/L ALT 19 (12-78) Alkaline Phosphatase 117 (45-117) U/L Albumin 3.1 L (3.4-5.0) gm/dl Diagnostic Findings Chest X-Ray 07/08/21 12:08 XR chest 1V portable CLINICAL HISTORY: Stroke Like Symptoms TECHNIQUE: Single frontal radiograph of the chest was obtained. Comparison: Comparison is made to chest one view 05/16/2021 FINDINGS: No lines and tubes are seen. The cardiomediastinal silhouette is normal. Left greater than right airspace opacities are seen. No evidence of pleural effusion or pneumothorax. Old healed right rib fractures are seen. IMPRESSION: Left greater than right airspace opacities may represent atelectasis, pneumonia, and/or aspiration. ACT 112: Negative or not required by law. Electronically signed by: Anderson Braldey M.D. 07/08/2021 12:[address] 07/08/21 12:08 CT head/brain wo con CLINICAL HISTORY: Stroke Like Symptoms Technique: Contiguous axial CT images of the head were acquired from the base of the skull to the vertex without intravenous contrast administration. Images were viewed in brain, subdural and bone windows. Automated dose lowering techniques and/or adjustment according to patient size were utilized for this exam. Comparison: Comparison is made to CTA head and neck 05/16/2021 Findings: Areas of decreased attenuation are present in the periventricular and subcortical white matter bilaterally consistent with small vessel ischemic disease. Generalized cerebral atrophy with commensurate enlargement of the ventricles, sulci, and cisterns is also present. There is no acute intracranial hemorrhage or evidence of acute territorial infarction. No shift of the midline structures, mass effect, or extra-axial abnormalities are shown. Atherosclerotic calcifications are present in the intracranial segments of the internal carotid arteries. Calcification of the falx is noted. Old lacunar i nfarct is noted in the left lentiform nucleus. Imaged portions of the paranasal sinuses and mastoid air cells are clear. The orbits appear normal. There are no acute fractures of the calvaria or scalp swelling. Impression: No acute intracranial hemorrhage, no evidence of acute territorial infarction or other acute intracranial disease process. ACT 112: Negative or not required by law. Electronically signed by: Anderson Bradley M.D. 07/08/2021 1:30 PM Head CTA 07/08/21 12:08 CT angio neck with con, CT angio head w con CLINICAL HISTORY: 70 years-old Male with Stroke Like Symptoms. Acute strokelike symptoms with history of 65% stenosis of the proximal right ICA. COMPARISON STUDY: Head CT and chest radiograph of same day, CTA head and neck 1 07/16/2020 TECHNIQUE: Following the IV administration of 119 mL of Optiray, CT angiogram of the head and neck was performed from the aortic arch to the skull apex. Images are reviewed in the axial, sagittal, and coronal planes. 3-D MIPS images are created and assessed. IV contrast was administered without complication. All measurements were calculated based on NASCET criteria. A dose lowering jayro hnique was utilized adhering to the principles of ALARA. CT DOSE: 2316.39 mGy.cm FINDINGS: Three-vessel morphology of the thoracic aortic arch. Patent innominate and imaged subclavian arteries. The common carotid arteries are patent bilaterally. Moderate atherosclerotic plaque of the right carotid bulb and proximal right ICA is redemonstrated which again results in approximately 60-65% luminal narrowing of the proximal cervical segment. Atherosclerotic plaque of the cavernous and supraclinoid segments results in narrowing measuring up to approximately 50%. The middle and anterior cerebral arteries are patent. The vertebral arteries are codominant and appear widely patent. Mild luminal irregularity of the distal vertebral arteries is likely secondary to atherosclerotic vascular disease. The basilar and posterior cerebral arteries are also patent. Cerebral venous sinuses are patent. There is no abnormal intracranial enhancement. Age-related involutional changes with chronic microvascular ischemic disease. 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 Groundglass opacities are noted throughout the left lung. Unremarkable soft tissues of the neck. Dural calcifications are again noted. Healed chronic fracture deformity of the left clavicle. IMPRESSION: 1. Moderate atherosclerotic plaque of the right carotid bulb redemonstrated resulting in approximately 60-65% stenosis of the proximal cervical segment right ICA which is unchanged. 2. Otherwise unremarkable CTA of the head and neck. 3. Chronic intracranial findings. 4. Groundglass opacities of the imaged left lung are suggestive of pneumonia. ACT 112: Negative or not required by law. The above report was generated using voice recognition software. It may contain grammatical, syntax or spelling errors. Electronically signed by: Esteban Romero M.D. 07/08/2021 1:44 PM Neck CTA 07/08/21 12:08 CT angio neck with con, CT angio head w con CLINICAL HISTORY: 70 years-old Male with Stroke Like Symptoms. Acute strokelike symptoms with history of 65% stenosis of the proximal right ICA. COMPARISON STUDY: Head CT and chest radiograph of same day, CTA head and neck 05/16/2021 TECHNIQUE: Following the IV administration of 119 mL of Optiray, CT angiogram of the head and neck was performed from the aortic arch to the skull apex. Images are reviewed in the axial, sagittal, and coronal planes. 3-D MIPS images are created and assessed. IV contrast was administered without complication. All measurements were calculated based on NASCET criteria. A dose lowering t echnique was utilized adhering to the principles of ALARA. CT DOSE: 2316.39 mGy.cm FINDINGS: Three-vessel morphology of the thoracic aortic arch. Patent innominate and imaged subclavian arteries. The common carotid arteries are patent bilaterally. Moderate atherosclerotic plaque of the right carotid bulb and proximal right ICA is redemonstrated which again results in approximately 60-65% luminal narrowing of the proximal cervical segment. Atherosclerotic plaque of the cavernous and supraclinoid segments results in narrowing measuring up to approximately 50%. The middle and anterior cerebral arteries are patent. The vertebral arteries are codominant and appear widely patent. Mild luminal irregularity of the distal vertebral arteries is likely secondary to atherosclerotic vascular disease. The basilar and posterior cerebral arteries are also patent. Cerebral venous sinuses are patent. There is no abnormal intracranial enhancement. Age-related involutional changes with chronic microvascular ischemic disease. 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 Groundglass opacities are noted throughout the left lung. Unremarkable soft tissues of the neck. Dural calcifications are again noted. Healed chronic fracture deformity of the left clavicle. IMPRESSION: 1. Moderate atherosclerotic plaque of the right carotid bulb redemonstrated resulting in approximately 60-65% stenosis of the proximal cervical segment right ICA which is unchanged. 2. Otherwise unremarkable CTA of the head and neck. 3. Chronic intracranial findings. 4. Groundglass opacities of the imaged left lung are suggestive of pneumonia. ACT 112: Negative or not required by law. The above report was generated using voice recognition software. It may contain grammatical, syntax or spelling errors. Electronically signed by: Esteban Romero M.D. 07/08/2021 1:44 PM Code Status & VTE Plan VTE Prophylaxis Plan VTE Prophylaxis will be ordered: Yes Supervising Physician Co-Signing Physician Notes Date of Service: July 08, 2021 Patient seen and examined. History and physical exam as detailed Neena Burroughs PA-C. History not able to be obtained from patient. Physical exam notable for patient awake and alert oriented to person, reportedly is in the hospital but does not know which. Did not answer any further questions. Was occasionally cooperative during exam. Sunday from the pharmacy from nursing pharmacy because I am going to resend that 1 labs notable for hemoglobin of 13, creatinine of 1.71, hypoglycemic episodes in the ER, procalcitonin of 6.82 Chest x-ray reported left greater than right airspace opacities Head CT did not show any acute intracranial abnormalities CT angio head and neck reported moderate atherosclerotic plaque in the right carotid bulb approximately about 60 to 65% stenosis of proximal cervical segment of right ICA that is unchanged. Patient met sepsis criteria with SIRS [tachycardia, tachypnea] Elevated procalcitonin. Hypoglycemic episodes CHIVO Normal lactate, pneumonia on x-ray Got cefepime in ER. Will do Zosyn for now due to possibility of aspiration Continue IV D5 with saline monitor blood glucose We will continue to try to get more information from the nursing facility. Do heparin subcu for DVT prophylaxis for now. Recent discharge summary showed patient was on Eliquis but not on current medication list. We will try to find out about there is 1 more information is a kyilable from nursing facility. Agree with other plans as detailed by Neena Burroughs PA-C
[2021-07-08] MEDS ORDERED: DEXTROSE 50% 50 ML SYRINGE IV STA (16:01)
[2021-07-08] MEDS: SODI CHLOR 2.5MEQ/ML 14.6% 77 MEQ in DEXTROSE 10% 1,000 ML IV SCH (16:54)
[2021-07-08 17:19] LABS: Influenza A virus by PCR Negative (Neg); Influenza B virus by PCR Negative (Neg); RSV by PCR Negative (Neg); SARS CoV2 RNA(COVID-19) InHosp NEGATIVE (Negative)
--- NOTE | 2021-07-08 18:16 | Communication Note ---
Date of Service: July 08, 2021 Patient seen and examined. History and physical exam as detailed Neena Burroughs PA-C. History not able to be obtained from patient. Physical exam notable for patient awake and alert oriented to person, reportedly is in the hospital but does not know which. Did not answer any further questions. Was occasionally cooperative during exam. Sunday from the pharmacy from nursing pharmacy because I am going to resend that 1 labs notable for hemoglobin of 13, creatinine of 1.71, hypoglycemic episodes in the ER, procalcitonin of 6.82 Chest x-ray reported left greater than right airspace opacities Head CT did not show any acute intracranial abnormalities CT angio head and neck reported moderate atherosclerotic plaque in the right carotid bulb approximately about 60 to 65% stenosis of proximal cervical segment of right ICA that is unchanged. Patient met sepsis criteria with SIRS [tachycardia, tachypnea] Elevated procalcitonin. Hypoglycemic episodes CHIVO Normal lactate, pneumonia on x-ray Got cefepime in ER. Will do Zosyn for now due to possibility of aspiration Continue IV D5 with saline monitor blood glucose We will continue to try to get more information from the nursing facility. Do heparin subcu for DVT prophylaxis for now. Recent discharge summary showed patient was on Eliquis but not on current medication list. We will try to find out about there is 1 more information is available from nursing facility. Agree with other plans as detailed by Neena Burroughs PA-C
[2021-07-08] MEDS ORDERED: POLYETHYLENE (MIRALAX) 17 GM PACK PO PRN (20:16)
[2021-07-08] MEDS ORDERED: PHARMACIST DISCHARGE MED REC CONSULT PRN (20:16)
[2021-07-08] MEDS ORDERED: GLUCOSE 40% GEL 15 GM TUBE PO PRN (20:16)
[2021-07-08] MEDS ORDERED: ACETAMINOPHEN 325 MG TAB PO PRN (20:16)
[2021-07-08] MEDS ORDERED: PIPERACILL/TAZOBAC CONSULT ACTIVE PRN (20:16)
[2021-07-08] MEDS ORDERED: GLUCAGON FOR INJ 1 MG VIAL SQ PRN (20:16)
[2021-07-08] MEDS ORDERED: ASPIRIN 300 MG SUPP PR ONE (20:16)
[2021-07-08] MEDS ORDERED: GLUCOSE 10 TABS/TUBE PO PRN (20:16)
[2021-07-08] MEDS ORDERED: CARBOHYDRATES FOR HYPOGLYCEMIA PO PRN (20:16)
[2021-07-08] MEDS ORDERED: PIPERACILLIN/TAZOBACTAM 3.375 GM in DEXTROSE 5% 100 ML IV ONE (20:30)
[2021-07-08] MEDS ORDERED: NUT TX GLUC INTOL LAC FREE SOY PO SCH (21:00)
[2021-07-08] MEDS: risperiDONE 0.5 MG TABLET PO SCH (21:45)
[2021-07-08] MEDS: HEPARIN SOD 5,000 UNIT/0.5 ML VIAL SQ SCH (21:46)
--- NOTE | 2021-07-08 21:57 | Magnetic Resonance Report ---
MR brain wo con CLINICAL HISTORY: Altered mental status and low blood sugar. History of previous strokes. Evaluate f or acute stroke. COMPARISON STUDY: CT brain from 07/08/2021 and previous MRI from 05/19/2021 TECHNIQUE: Multiplanar multisequence images of the Brain were performed without IV contrast. FINDINGS: Extra-axial space: There is no evidence for a subdural hematoma, There are no extra-axial fluid ismael ections. Ventricles and cisterns: The ventricles are again mildly dilated bilaterally. There is no evidence f or midline shift or mass effect. Parenchyma: There is no evidence for an acute hemorrhage or infarct. Subacute infarcts are again seen involving the right posterior internal capsule and the left parafalcine white matter. These demonstr ate abnormal signal on both diffusion weighted imaging and ADC mapping. There is normal gallardo-white di fferentiation. There is mild cerebral cortical atrophy present. There is bright signal seen on FLAIR weighted sequences within the centrum semiovale and periventricular white matter characteristic of re mote small vessel disease. The sulci and gyri appear normal without effacement. The midline structure s are unremarkable. The posterior fossa structures appear normal. There is no evidence for mass lesio n. Osseous structures: The paranasal sinuses are well aerated. The mastoid air cells are well aerated. Soft tissues: No focal soft tissue abnormalities are identified. IMPRESSION: No acute intracranial abnormalities. Subacute infarcts are again identified within the p osterior internal capsule on the right and the left parafalcine white matter as seen on the previous MRI. Cerebral cortical atrophy and remote small vessel disease are also again seen. ACT 112: Negative or not required by law. Electronically signed by: Donn Pereira M.D. 07/08/2021 9:55 PM
[2021-07-08] MEDS: D5W AND NSS 1,000 ML IV SCH (23:48)
[2021-07-09] MEDS ORDERED: LORazepam 0.25 MG/0.5 ML VIAL IV STA (01:38)
[2021-07-09] MEDS ORDERED: LORazepam 2 MG/4 ML VIAL ONE (01:43)
[2021-07-09] MEDS ORDERED: Nursing to Pharmacy Communication SCH (02:15)
[2021-07-09] MEDS: SODI CHLOR 2.5MEQ/ML 14.6% 77 MEQ in DEXTROSE 10% 1,000 ML IV SCH (02:31)
[2021-07-09] MEDS: PIPERACILLIN/TAZOBACTAM 3.375 GM in DEXTROSE 5% 100 ML IV SCH ×4 (02:35→18:20)
[2021-07-09] MEDS ORDERED: SODIUM CHLORIDE 0.9% 500 ML IV SCH ×2 (02:45→22:45)
[2021-07-09] MEDS: D5W AND NSS 1,000 ML IV SCH (03:38)
[2021-07-09] MEDS: DOXYCYCLINE HYCLATE 100 MG in DEXTROSE 5% 100 ML IV SCH ×2 (04:19→15:33)
[2021-07-09 06:02] LABS: Calcium 8.9 mg/dl (8.5-10.1); Creatinine Clr Calc Pharmacy 43.5 ml/min; Est GFR (African American) 63.3 ml/min; Est GFR (Non-African American) 54.7 ml/min; Potassium 4.3 mmol/L (3.5-5.1)
[2021-07-09] MEDS: HEPARIN SOD 5,000 UNIT/0.5 ML VIAL SQ SCH ×2 (06:09→14:53)
[2021-07-09 06:14] LABS: Basophils # (auto) 0.03 K/uL (0-0.2); Basophils % (auto) 0.2 %; Eosinophils # (auto) 0.04 K/uL (0-0.5); Eosinophils % (auto) 0.2 %; Hematocrit (blood only) 29.8 % (42-52); Hemoglobin 9.8 g/dL (14.0-18.0); Immature Granulocytes # (auto) 0.03 K/uL (0.00-0.02); Immature Granulocytes % (auto) 0.2 %; Lymphocytes # (auto) 1.32 K/uL (1.2-3.4); Lymphocytes % (auto) 7.5 %; Mean Corpuscular Hemoglobin 29.3 pg (25-34); Mean Corpuscular Hgb Conc 32.9 g/dL (32-36); Mean Corpuscular Volume 89.2 fL (80-100); Mean Platelet Volume 9.6 fL (7.4-10.4); Monocytes # (auto) 0.71 K/uL (0.11-0.59); Neutrophils # (auto) 15.47 K/uL (1.4-6.5); Neutrophils % (auto) 87.9 %; Platelet Count 390 K/uL (130-400); RBC Morphology Unremarkable; RDW Coefficient of Variation 16.5 % (11.5-14.5); RDW Standard Deviation 53.6 fL (36.4-46.3); Red Blood Count 3.34 M/uL (4.7-6.1)
--- NOTE | 2021-07-09 08:08 | XRay Report ---
XR chest 1V portable CLINICAL HISTORY: sob. Follow-up bilateral airspace opacities COMPARISON STUDY: 07/08/2021 TECHNIQUE: 1 view of the chest FINDINGS: Single frontal view of the chest demonstrates the cardiomediastinal silhouette to be within normal li mits. Compared to the previous examination, bilateral interstitial and alveolar opacities are again s een involving the lower half of left hemithorax and to a lesser degree on the right. Findings are darren picious for early viral type pneumonitis and Covid pneumonia. There is no evidence for pleural effusi on. There is no evidence for vascular congestion. There is no acute osseous pathology. IMPRESSION: Bilateral interstitial and alveolar opacities are again seen, left greater than right darren picious for an early viral type pneumonitis and Covid pneumonia. ACT 112: Negative or not required by law. Electronically signed by: Donn Pereira M.D. 07/09/2021 8:07 AM
[2021-07-09] MEDS: CLOPIDOGREL BISULFATE 75 MG TAB PO SCH (10:13)
[2021-07-09] MEDS: risperiDONE 0.5 MG TABLET PO SCH ×2 (10:14→20:23)
--- NOTE | 2021-07-09 10:27 | Electrocardiogram Report ---
Test Reason : Blood Pressure : / mmHG Vent. Rate : 129 BPM Atrial Rate : 129 BPM P-R Int : 122 ms QRS Dur : 080 ms QT Int : 324 ms P-R-T Axes : 053 065 069 degrees QTc Int : 474 ms Poor data quality, interpretation may be adversely affected Sinus tachycardia Possible Left atrial enlargement Borderline ECG When compared with ECG of 16-MAY-2021 17:32, Vent. rate has increased BY 60 BPM Confirmed by Jeff Gonzales ([id number]) on 07/09/2021 10:27:35 AM Referred By: [facility] Confirmed By:Jeff Gonzales
[2021-07-09] MEDS ORDERED: PHARMACY GLYCEMIC MGMT CONSULT PRN (13:11)
--- NOTE | 2021-07-09 13:54 | Pharmacy Report ---
Pharmacy Glycemic Short Note 2 - Date of Service July 09, 2021 - Glycemic Short BSG Results (Last 24 hours): 07/08/21 07/08/21 07/08/21 15:47 15:53 16:40 Glucose POC Glucose 33 L* 38 L* 165 H 07/08/21 07/08/21 07/08/21 18:14 20:09 23:30 Glucose POC Glucose 148 H 169 H 276 H 07/09/21 07/09/21 07/09/21 01:32 04:57 05:05 Glucose 255 H POC Glucose 215 H 259 H 07/09/21 07/09/21 07/09/21 07:11 08:39 13:02 Glucose POC Glucose 292 H 256 H 296 H OUTPATIENT ANTIDIABETIC REGIMEN: * Novolog mix 44 units with breakfast, 28 units with dinner * A1c 9.6 05/17/2021 ASSESSMENT: * Patient admitted with pneumonia. Known to glycemic service from prior admission, T1DM per notes. Blood sugars low yesterday, dextrose fluids and D5 amp given. BSG down to 33 mg/dL last evening * Spoke with provider to discuss case. Agreeable to start very low Lantus dosing - provider wanting no more than 10 units x 1 now. I will add scale for HS if BSG trending up. Provider stating patient with poor oral intake currently. Other admission requiring closer to 18 units of basal * Plan to use same CF/CR as last admission PLAN FOR INPATIENT GLYCEMIC CONTROL: * Hold outpatient oral diabetes medications * Basal insulin * Lantus 10 units x 1 * Lantus 0-5 units with dinner/HS * Bolus insulin * NovoLog per scale ACHS or Q6hrs while NPO * Goal Range: Low 120 mg/dL - High 160 mg/dL * Correction Factor: 30 mg/dL/unit * Nutritional / Prandial insulin per carb ratio of 1 unit per 10 grams CHO consumed PLAN FOR DISCHARGE: * TBD
[2021-07-09] MEDS ORDERED: INSULIN GLARGINE SOLOSTAR 100 UNITS/ML 3 ML PEN SC ONE ×2 (14:00→17:45)
--- NOTE | 2021-07-09 14:03 | Hospitalist Progress Note ---
Date of Service July 09, 2021 Assessment & Plan (1) Sepsis: (2) Pneumonia of both lungs: Plan: Patient is 70-year-old male with PMH DM, paroxysmal atrial fibrillation, depression, mood disorder, chronic anemia, HTN, h/o above knee amputation presented to ER from [facility] for hypoglycemia and altered mental status. CT head was obtained with no acute findings. ER staff reports that [facility] had stated that patient had some cough and there was concern for possible aspiration. In ER patient afebrile, P: 112, R: 25, BP 100/67 down to 61/46 and up to 97/62. Initially 86% on room air up to 94% on 4 L via nasal cannula. No leukocytosis. Chest x-ray with left greater than right opacities Lactate: 1.3. 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 May need further eval (3) Hypoglycemia: Plan: H/O DM A1c: 9.6 on 05/17/2021 Outpatient BSG of 36 reported today. EMS gave D10 with BSG up to 99 which further dropped to 60 in ER and was given amp of D50. Further dropping of glucose in ER to 30's and given another dose dextrose Hypoglycemia likely due to sepsis in a diabetic patient + possibly received insulin on day of admission Hypoglycemic episodes resolved Currently hyperglycemic, discussed with glycemic pharm to resume insulin protocol (lantus and aspart) but to avoid hypoglycemic episodes. May allow BG run high normal range (4) Metabolic encephalopathy: Plan: Likely secondary to hypoglycemia, underlying infection. Treat infection and hypoglycemia as above Called [facility] to get more information and inquire about events around hospitalization. Personnel at facility reported the BAND TUMBLER that can provide info will not be available till sunday Called sister and updated her. Based on her description, patient appears to be at ?new baseline mental status since after recent stroke last month POSSIBLE ACUTE CVA H/O CVA Hospitalization in 05/2021. At that time MRI showed acute infarct right posterior internal capsule and left parafalcine. His aspirin was changed to Plavix and Eliquis was continued. Med rec sent with patient did not show that patient is on any Eliquis or statin. When I spoke with agent at [facility] who went through his med list, he did not see eliquis either. Unclear reason for discontinuation Continue Plavix Resume eliquis MRI brain show subacute infarcts previously identified Paroxysmal atrial fibrillation Previously was discharged on Eliquis. Resume as above CHIVO On admission, Cr: 1.7 Got IVF Cr is 1.32 today Monitor renal function, avoid nephrotoxic agents when possible h/o depression, bipolar Continue risperidone DVT Prophylaxis Eliquis DNR/DNI as per paperwork from [facility] Admission and Anticipated Discharge Date Admission Date: July 08, 2021 Subjective Patient seen and examined Patient was not very cooperative Asked to be left alone Per RN, no new complaints/events Hypoglycemic episodes have resolved and patient has been hyperglycemic. Dextrose infusion discontinued earlier Review of Systems Review of Systems: Unobtainable due to cognitive status Physical Exam Constitutional: Was sleeping but woke up to call Not in any distress Eyes: PERRL, conjunctivae normal, anicteric sclerae Respiratory: Not in resp distress, scattered rhonchi Cardiovascular: Rate/Rhythm: regular rate and regular rhythm S1 S2 Gastrointestinal (Abdomen): normal bowel sounds, soft, nontender, no hepatosplenomegaly Musculoskeletal: Left BKA. No edema Right mid foot amputation Neurologic: Limited exam as patient was not cooperative Moves extremities spontaneously Results & Data Results & Data ([facility]) Vital Signs (Past 12 Hours) Vital Signs Temp Pulse Resp BP Pulse Ox 07/09/21 12:00 36.5 C 89 18 122/56 L 96 07/09/21 07:51 36.8 C 102 H 20 91/49 L 92 07/09/21 03:30 101 H 24 123/47 L 99 07/09/21 02:46 73/55 L Laboratory Results Abnormal lab results 07/08/21 07/08/21 07/08/21 Range/Units 15:45 16:40 18:14 WBC (4.8-10.8) K/uL RBC (4.7-6.1) M/uL Hgb (14.0-18.0) g/dL Hct (42-52) % RDW Std Deviation (36.4-46.3) fL RDW Coeff of Jace (11.5-14.5) % Neut # (Auto) (1.4-6.5) K/uL [place] # (Auto) (0.11-0.59) K/uL Immature Gran # (Auto) (0.00-0.02) K/uL BUN (7-18) mg/dl Glucose (70-99) mg/dl POC Glucose 165 H 148 H (70-99) mg/dl Procalcitonin 6.82 H (0-0.5) ng/ml 07/08/21 07/08/21 07/09/21 Range/Units 20:09 23:30 01:32 WBC (4.8-10.8) K/uL RBC (4.7-6.1) M/uL Hgb (14.0-18.0) g/dL Hct (42-52) % RDW Std Deviation (36.4-46.3) fL RDW Coeff of Jace (11.5-14.5) % Neut # (Auto) (1.4-6.5) K/uL [place] # (Auto) (0.11-0.59) K/uL Immature Gran # (Auto) (0.00-0.02) K/uL BUN (7-18) mg/dl Glucose (70-99) mg/dl POC Glucose 169 H 276 H 215 H (70-99) mg/dl Procalcitonin (0-0.5) ng/ml 07/09/21 07/09/21 07/09/21 Range/Units 04:57 05:05 05:05 WBC 17.60 H D (4.8-10.8) K/uL RBC 3.34 L (4.7-6.1) M/uL Hgb 9.8 L D (14.0-18.0) g/dL Hct 29.8 L (42-52) % RDW Std Deviation 53.6 H (36.4-46.3) fL RDW Coeff of Jace 16.5 H (11.5-14.5) % Neut # (Auto) 15.47 H (1.4-6.5) K/uL [place] # (Auto) 0.71 H (0.11-0.59) K/uL Immature Gran # (Auto) 0.03 H (0.00-0.02) K/uL BUN 26 H (7-18) mg/dl Glucose 255 H (70-99) mg/dl POC Glucose 259 H (70-99) mg/dl Procalcitonin (0-0.5) ng/ml 07/09/21 07/09/21 07/09/21 Range/Units 07:11 08:39 13:02 WBC (4.8-10.8) K/uL RBC (4.7-6.1) M/uL Hgb (14.0-18.0) g/dL Hct (42-52) % RDW Std Deviation (36.4-46.3) fL RDW Coeff of Jace (11.5-14.5) % Neut # (Auto) (1.4-6.5) K/uL [place] # (Auto) (0.11-0.59) K/uL Immature Gran # (Auto) (0.00-0.02) K/uL BUN (7-18) mg/dl Glucose (70-99) mg/dl POC Glucose 292 H 256 H 296 H (70-99) mg/dl Procalcitonin (0-0.5) ng/ml 07/09/21 Range/Units 16:14 WBC (4.8-10.8) K/uL RBC (4.7-6.1) M/uL Hgb (14.0-18.0) g/dL Hct (42-52) % RDW Std Deviation (36.4-46.3) fL RDW Coeff of Jace (11.5-14.5) % Neut # (Auto) (1.4-6.5) K/uL [place] # (Auto) (0.11-0.59) K/uL Immature Gran # (Auto) (0.00-0.02) K/uL BUN (7-18) mg/dl Glucose (70-99) mg/dl POC Glucose 498 H* (70-99) mg/dl Procalcitonin (0-0.5) ng/ml
[2021-07-09] MEDS: INSULIN ASPART PER UNIT SC SCH ×4 (14:52→23:37)
[2021-07-09] MEDS: DEXTROSE 50% 50 ML SYRINGE IV PRN ×2 (19:27→22:08)
[2021-07-09] MEDS ORDERED: D5W AND NSS 1,000 ML IV SCH (19:30)
[2021-07-09] MEDS: APIXABAN 5 MG TABLET PO SCH (20:23)
[2021-07-09] MEDS ORDERED: INSULIN GLARGINE SOLOSTAR 100 UNITS/ML 3 ML PEN SC SCH (21:00)
[2021-07-10] MEDS: DEXTROSE 50% 50 ML SYRINGE IV PRN (00:39)
[2021-07-10] MEDS: SODI CHLOR 2.5MEQ/ML 14.6% 77 MEQ in DEXTROSE 10% 1,000 ML IV SCH ×2 (01:20→19:15)
[2021-07-10] MEDS: PIPERACILLIN/TAZOBACTAM 3.375 GM in DEXTROSE 5% 100 ML IV SCH ×3 (02:03→18:16)
[2021-07-10] MEDS ORDERED: Nursing to Pharmacy Communication SCH (03:00)
[2021-07-10] MEDS: INSULIN ASPART PER UNIT SC SCH ×7 (04:10→23:31)
[2021-07-10 05:59] LABS: Basophils # (auto) 0.02 K/uL (0-0.2); Basophils % (auto) 0.2 %; Eosinophils # (auto) 0.21 K/uL (0-0.5); Eosinophils % (auto) 2.3 %; Hematocrit (blood only) 28.6 % (42-52); Hemoglobin 9.4 g/dL (14.0-18.0); Immature Granulocytes # (auto) 0.01 K/uL (0.00-0.02); Immature Granulocytes % (auto) 0.1 %; Lymphocytes # (auto) 0.89 K/uL (1.2-3.4); Lymphocytes % (auto) 9.9 %; Mean Corpuscular Hemoglobin 29.1 pg (25-34); Mean Corpuscular Hgb Conc 32.9 g/dL (32-36); Mean Corpuscular Volume 88.5 fL (80-100); Monocytes # (auto) 0.35 K/uL (0.11-0.59); Monocytes % (auto) 3.9 %; Neutrophils # (auto) 7.47 K/uL (1.4-6.5); Neutrophils % (auto) 83.6 %; Platelet Count 329 K/uL (130-400); RDW Coefficient of Variation 16.3 % (11.5-14.5); RDW Standard Deviation 52.9 fL (36.4-46.3); Red Blood Count 3.23 M/uL (4.7-6.1); White Blood Count 8.95 K/uL (4.8-10.8)
[2021-07-10] MEDS: DOXYCYCLINE HYCLATE 100 MG in DEXTROSE 5% 100 ML IV SCH ×2 (06:10→18:13)
[2021-07-10 06:53] LABS: BUN Creatinine Ratio 16.4 (10-20); Calcium 8.7 mg/dl (8.5-10.1); Creatinine Clr Calc Pharmacy 56.3 ml/min; Est GFR (African American) 86.5 ml/min; Est GFR (Non-African American) 74.6 ml/min; Potassium 3.6 mmol/L (3.5-5.1)
[2021-07-10] MEDS: CLOPIDOGREL BISULFATE 75 MG TAB PO SCH (09:41)
[2021-07-10] MEDS: risperiDONE 0.5 MG TABLET PO SCH (09:41)
[2021-07-10] MEDS: APIXABAN 5 MG TABLET PO SCH ×2 (09:41→23:26)
--- NOTE | 2021-07-10 14:07 | Hospitalist Progress Note ---
Date of Service July 10, 2021 Assessment & Plan (1) Sepsis: (2) Pneumonia of both lungs: Plan: Patient is 70-year-old male with PMH DM, paroxysmal atrial fibrillation, depression, mood disorder, chronic anemia, HTN, h/o above knee amputation presented to ER from [facility] for hypoglycemia and altered mental status. CT head was obtained with no acute findings. ER staff reports that [facility] had stated that patient had some cough and there was concern for possible aspiration. In ER patient afebrile, P: 112, R: 25, BP 100/67 down to 61/46 and up to 97/62. Initially 86% on room air up to 94% on 4 L via nasal cannula. No leukocytosis. Chest x-ray with left greater than right opacities Lactate: 1.3. Procalcitonin: 6.8 Continue antibiotics - zosyn and doxycycline Cultures negative so far (3) Hypoglycemia: Plan: H/O DM A1c: 9.6 on 05/17/2021 Outpatient BSG of 36 reported. EMS gave D10 with BSG up to 99 which further dropped to 60 in ER and was given amp of D50. Further dropping of glucose in ER to 30's and given another dose dextrose Hypoglycemia likely due to sepsis in a diabetic patient + possibly received insulin on day of admission Hypoglycemic episodes overnight due to meds/ poor oral intake in setting of sepsis I called and discussed with RN and Glycemic pharmacist about need to avoid tight glycemic control and allow for higher goal of 120-160 Blood glucose is currently in 200s. Stop D10 Cut lantus to 5U daily and use a lower sliding scale (4) Metabolic encephalopathy: Plan: Likely secondary to hypoglycemia, underlying infection. Treat infection and hypoglycemia as above On 07/09/21, I called [facility] to get more information and inquire about events around hospitalization. Personnel at facility reported the SUPERVISOR MAPPING that can provide info will not be available till sunday I also called sister same day and updated her. Based on her description, patient appears to be at ?new baseline mental status since after recent stroke last month POSSIBLE ACUTE CVA H/O CVA Hospitalization in 05/2021. At that time MRI showed acute infarct right posterior internal capsule and left parafalcine. His aspirin was changed to Plavix and Eliquis was continued. Med rec sent with patient did not show that patient is on any Eliquis or statin. When I spoke with agent at [facility] who went through his med list, he did not see eliquis either. Unclear reason for discontinuation Continue Plavix Resume eliquis MRI brain show subacute infarcts previously identified Paroxysmal atrial fibrillation Previously was discharged on Eliquis. Was not in current med list from OR. Unclear reason Continue eliquis CHIVO On admission, Cr: 1.7 Got IVF Cr is 1.02 today Monitor renal function, avoid nephrotoxic agents when possible h/o depression, bipolar Continue risperidone DVT Prophylaxis Eliquis DNR/DNI as per paperwork from [facility] Admission and Anticipated Discharge Date Admission Date: July 08, 2021 Subjective Patient seen and examined Had blood glucose of 498 yesterday evening, Had received total lantus of 18U and aspart of 12U. Became hypoglycemic afterwards and was started on D10 Patient currently awake and alert, occasionally answers questions. Follows simple commands No complaints per business architect of Systems Review of Systems: Unobtainable due to cognitive status Physical Exam Constitutional: Awake and alert, in no distress Eyes: PERRL, conjunctivae normal, anicteric sclerae Respiratory: normal respiratory effort, lungs clear to auscultation Cardiovascular: Rate/Rhythm: regular rate and regular rhythm S1 S2 Gastrointestinal (Abdomen): normal bowel sounds, soft, nontender, no hepatosplenomegaly Musculoskeletal: Left BKA. No edema Right mid foot amputation Neurologic: Awake and alert. Limited exam due to cognitive status Follows simple commands such as raising hands and leg Results & Data Results & Data ([facility]) Vital Signs (Past 12 Hours) Vital Signs Pulse Resp BP Pulse Ox 07/10/21 06:00 87 24 139/63 95 07/10/21 04:00 68 18 98 Laboratory Results Abnormal lab results 07/09/21 07/09/21 07/09/21 Range/Units 16:14 19:16 19:40 RBC (4.7-6.1) M/uL Hgb (14.0-18.0) g/dL Hct (42-52) % RDW Std Deviation (36.4-46.3) fL RDW Coeff of Jace (11.5-14.5) % Neut # (Auto) (1.4-6.5) K/uL Lymph # (Auto) (1.2-3.4) K/uL Glucose (70-99) mg/dl POC Glucose 498 H* 68 L* 125 H (70-99) mg/dl 07/09/21 07/09/21 07/09/21 Range/Units 22:04 22:22 22:56 RBC (4.7-6.1) M/uL Hgb (14.0-18.0) g/dL Hct (42-52) % RDW Std Deviation (36.4-46.3) fL RDW Coeff of Jace (11.5-14.5) % Neut # (Auto) (1.4-6.5) K/uL Lymph # (Auto) (1.2-3.4) K/uL Glucose 101 H (70-99) mg/dl POC Glucose 48 L* 174 H (70-99) mg/dl 07/10/21 07/10/21 07/10/21 Range/Units 00:34 01:02 01:59 RBC (4.7-6.1) M/uL Hgb (14.0-18.0) g/dL Hct (42-52) % RDW Std Deviation (36.4-46.3) fL RDW Coeff of Jace (11.5-14.5) % Neut # (Auto) (1.4-6.5) K/uL Lymph # (Auto) (1.2-3.4) K/uL Glucose (70-99) mg/dl POC Glucose 60 L* 147 H 111 H (70-99) mg/dl 07/10/21 07/10/21 07/10/21 Range/Units 02:50 04:16 05:41 RBC 3.23 L (4.7-6.1) M/uL Hgb 9.4 L (14.0-18.0) g/dL Hct 28.6 L (42-52) % RDW Std Deviation 52.9 H (36.4-46.3) fL RDW Coeff of Jace 16.3 H (11.5-14.5) % Neut # (Auto) 7.47 H (1.4-6.5) K/uL Lymph # (Auto) 0.89 L (1.2-3.4) K/uL Glucose (70-99) mg/dl POC Glucose 144 H 152 H (70-99) mg/dl 07/10/21 07/10/21 07/10/21 Range/Units 05:41 06:04 09:24 RBC (4.7-6.1) M/uL Hgb (14.0-18.0) g/dL Hct (42-52) % RDW Std Deviation (36.4-46.3) fL RDW Coeff of Jace (11.5-14.5) % Neut # (Auto) (1.4-6.5) K/uL Lymph # (Auto) (1.2-3.4) K/uL Glucose 175 H (70-99) mg/dl POC Glucose 180 H 216 H (70-99) mg/dl 07/10/21 Range/Units 13:12 RBC (4.7-6.1) M/uL Hgb (14.0-18.0) g/dL Hct (42-52) % RDW Std Deviation (36.4-46.3) fL RDW Coeff of Jace (11.5-14.5) % Neut # (Auto) (1.4-6.5) K/uL Lymph # (Auto) (1.2-3.4) K/uL Glucose (70-99) mg/dl POC Glucose 243 H (70-99) mg/dl
--- NOTE | 2021-07-10 14:37 | Pharmacy Report ---
Pharmacy Glycemic Short Note 2 - Date of Service July 10, 2021 - Glycemic Short BSG Results (Last 24 hours): 07/09/21 07/09/21 07/09/21 16:14 19:14 19:16 Glucose POC Glucose 498 H* 71 68 L* 07/09/21 07/09/21 07/09/21 19:40 20:12 20:44 Glucose POC Glucose 125 H 79 71 07/09/21 07/09/21 07/09/21 22:04 22:22 22:56 Glucose 101 H POC Glucose 48 L* 174 H 07/09/21 07/10/21 07/10/21 23:33 00:07 00:34 Glucose POC Glucose 87 72 60 L* 07/10/21 07/10/21 07/10/21 01:02 01:59 02:50 Glucose POC Glucose 147 H 111 H 144 H 07/10/21 07/10/21 07/10/21 04:16 05:41 06:04 Glucose 175 H POC Glucose 152 H 180 H 07/10/21 07/10/21 09:24 13:12 Glucose POC Glucose 216 H 243 H OUTPATIENT ANTIDIABETIC REGIMEN: * Novolog mix 44 units with breakfast, 28 units with dinner * A1c 9.6 05/17/2021 ASSESSMENT: 07/10 * Pt with extremely brittle DM BSG control. * BSGs swing from 498 mg/dl to 68 mg/dl with 12 units of NovoLog last night * Typically, patient requires 18-25 units of Lantus per day for basal; however pt with minimal PO intake this admission and quite confused. Provider would like not more than 5-10 units of Lantus given per day. * Per previous admissions pt has done well with CF/CR of 30/10 respectively but likely PNA, confusion, illness, decreased etc is affecting insulin resistance. Will loosen CF to 40 to prevent another low bsg. * Provider is OK with BSGs 150-250 mg/dl. 07/09 * Patient admitted with pneumonia. Known to glycemic service from prior admission, T1DM per notes. Blood sugars low yesterday, dextrose fluids and D5 amp given. BSG down to 33 mg/dL last evening * Spoke with provider to discuss case. Agreeable to start very low Lantus dosing - provider wanting no more than 10 units x 1 now. I will add scale for HS if BSG trending up. Provider stating patient with poor oral intake currently. Other admission requiring closer to 18 units of basal * Plan to use same CF/CR as last admission PLAN FOR INPATIENT GLYCEMIC CONTROL: * Hold outpatient oral diabetes medications * Basal insulin * Lantus 5 units x 1 this evening * Bolus insulin * NovoLog per scale ACHS or Q6hrs while NPO * Goal Range: Low 120 mg/dL - High 160 mg/dL * Correction Factor: 40 mg/dL/unit * Nutritional / Prandial insulin per carb ratio of 1 unit per 10 grams CHO consumed PLAN FOR DISCHARGE: * TBD
[2021-07-10] MEDS ORDERED: INSULIN GLARGINE SOLOSTAR 100 UNITS/ML 3 ML PEN SC SCH (18:00)
[2021-07-10] MEDS: INSULIN GLARGINE SOLOSTAR 100 UNITS/ML 3 ML PEN SC SCH (18:31)
[2021-07-11] MEDS: PIPERACILLIN/TAZOBACTAM 3.375 GM in DEXTROSE 5% 100 ML IV SCH ×2 (02:13→09:28)
[2021-07-11] MEDS: DOXYCYCLINE HYCLATE 100 MG in DEXTROSE 5% 100 ML IV SCH (05:51)
[2021-07-11 06:41] LABS: Hematocrit (blood only) 30.7 % (42-52); Hemoglobin 9.9 g/dL (14.0-18.0); Mean Corpuscular Hemoglobin 28.9 pg (25-34); Mean Corpuscular Hgb Conc 32.2 g/dL (32-36); Mean Corpuscular Volume 89.5 fL (80-100); Mean Platelet Volume 9.3 fL (7.4-10.4); Platelet Count 331 K/uL (130-400); RDW Coefficient of Variation 16.4 % (11.5-14.5); RDW Standard Deviation 53.6 fL (36.4-46.3); Red Blood Count 3.43 M/uL (4.7-6.1); White Blood Count 4.39 K/uL (4.8-10.8)
[2021-07-11 07:03] LABS: Calcium 8.4 mg/dl (8.5-10.1); Creatinine Clr Calc Pharmacy 69.4 ml/min; Est GFR (Non-African American) 88.9 ml/min; Potassium 3.8 mmol/L (3.5-5.1)
[2021-07-11] MEDS: risperiDONE 0.5 MG TABLET PO SCH ×2 (07:55→12:55)
[2021-07-11] MEDS: APIXABAN 5 MG TABLET PO SCH (07:56)
[2021-07-11] MEDS: CLOPIDOGREL BISULFATE 75 MG TAB PO SCH (07:56)
[2021-07-11] MEDS: INSULIN ASPART PER UNIT SC SCH ×4 (08:37→20:04)
[2021-07-11 08:57] LABS: Appearance Urine Clear (Clear); Bacteria Urine Automated Negative (Negative); Bilirubin Urine Negative (Negative); Blood Urine Negative (Negative); Cast Urine Automated 0 /lpf (0-5); Color Urine Yellow; Glucose Urine UA Negative (Negative); Ketones Urine Negative (Negative); Leukocyte Esterase Urine Trace (Negative); Nitrite Urine Negative (Negative); Protein Urine Negative (Negative); RBC Urine Automated 0-4 /hpf (0-4); Specific Gravity Urine 1.013 (1.000-1.030); Urobilinogen Urine Negative (Negative); pH Urine 6.5 (4.5-7.5)
--- NOTE | 2021-07-11 11:46 | Hospitalist Progress Note ---
Date of Service July 11, 2021 Assessment & Plan (1) Sepsis: (2) Pneumonia of both lungs: Plan: Patient is 70-year-old male with PMH DM, paroxysmal atrial fibrillation, depression, mood disorder, chronic anemia, HTN, h/o above knee amputation presented to ER from [facility] for hypoglycemia and altered mental status. CT head was obtained with no acute findings. ER staff reports that [facility] had stated that patient had some cough and there was concern for possible aspiration. In ER patient afebrile, P: 112, R: 25, BP 100/67 down to 61/46 and up to 97/62. Initially 86% on room air up to 94% on 4 L via nasal cannula. No leukocytosis. Chest x-ray with left greater than right opacities Lactate: 1.3. Procalcitonin: 6.8 Cultures negative so far Change to po Augmentin to complete treatment (3) Hypoglycemia: Plan: H/O DM A1c: 9.6 on 05/17/2021 Outpatient BSG of 36 reported. EMS gave D10 with BSG up to 99 which further dropped to 60 in ER and was given amp of D50. Further dropping of glucose in ER to 30's and given another dose dextrose Hypoglycemic episodes due to meds/ poor oral intake in setting of sepsis Hypoglycemic episodes have resolved I was able to speak with the nurse network support administrator at the nursing facility today who reported that patient had hypoglycemic episode and was brought into the hospital due to being drowsy as well. She stated that patient has been having episodes of hypoglycemia sometimes due to his inconsistent oral intake while on insulin therapy. Patient was apparently on hospice at the facility hence, the discontinuation of certain medications including Eliquis. The plan is still to discharge patient back on hospice once stable. We'll plan to discharge on Lantus low-dose 5 units daily and then cover with sliding scale with instructions to avoid hypoglycemic episodes (4) Metabolic encephalopathy: Plan: Likely secondary to hypoglycemia, underlying infection. Treat infection and hypoglycemia as above Paroxysmal atrial fibrillation POSSIBLE ACUTE CVA H/O CVA Hospitalization in 05/2021. At that time MRI showed acute infarct right posterior internal capsule and left parafalcine. His aspirin was changed to Plavix and Eliquis was continued. MRI brain show subacute infarcts previously identified Eliquis had been discontinued due to being on hospice at facility [facility] On admission, Cr: 1.7 Got IVF Cr is 0.85 today Monitor renal function, avoid nephrotoxic agents when possible h/o depression, bipolar Continue risperidone DNR/DNI as per paperwork from Seth Schmidt to dc to facility tomorrow Admission and Anticipated Discharge Date Admission Date: July 08, 2021 Subjective Patient seen and examined No events overnight ROS cannot be performed as patient does not answer questions and occasionally follows commands Review of Systems Review of Systems: Unobtainable due to cognitive status Physical Exam Constitutional: Awakea ndalert Eyes: PERRL, conjunctivae normal, anicteric sclerae Respiratory: normal respiratory effort, lungs clear to auscultation Cardiovascular: Rate/Rhythm: regular rate and regular rhythm S1 S2 Gastrointestinal (Abdomen): normal bowel sounds, soft, nontender, no hepatosplenomegaly Musculoskeletal: Left BKA. No edema Right mid foot amputation Neurologic: Awake and alert. Occasionally follows commands Results & Data Results & Data ([facility]) Vital Signs (Past 12 Hours) Vital Signs Temp Pulse Pulse Resp BP Pulse Ox 07/11/21 11:05 36.5 C 67 16 150/70 H 96 07/11/21 07:26 36.9 C 77 16 149/75 H 96 07/11/21 06:16 84 07/11/21 03:54 36.7 C 82 16 110/55 L 98 07/11/21 00:00 37.3 C 94 H 18 108/89 97 07/10/21 23:47 76 Laboratory Results Abnormal lab results 07/10/21 07/10/21 07/10/21 Range/Units 19:29 21:26 23:30 WBC (4.8-10.8) K/uL RBC (4.7-6.1) M/uL Hgb (14.0-18.0) g/dL Hct (42-52) % RDW Std Deviation (36.4-46.3) fL RDW Coeff of Jace (11.5-14.5) % Chloride (98-107) mmol/L Glucose (70-99) mg/dl POC Glucose 145 H 179 H 194 H (70-99) mg/dl Calcium (8.5-10.1) mg/dl Ur Leukocyte Esterase (Negative) U Epithel Cells (Auto) (0-5) /lpf 07/11/21 07/11/21 07/11/21 Range/Units 01:34 03:35 05:28 WBC (4.8-10.8) K/uL RBC (4.7-6.1) M/uL Hgb (14.0-18.0) g/dL Hct (42-52) % RDW Std Deviation (36.4-46.3) fL RDW Coeff of Jace (11.5-14.5) % Chloride (98-107) mmol/L Glucose (70-99) mg/dl POC Glucose 138 H 120 H 126 H (70-99) mg/dl Calcium (8.5-10.1) mg/dl Ur Leukocyte Esterase (Negative) U Epithel Cells (Auto) (0-5) /lpf 07/11/21 07/11/21 07/11/21 Range/Units 06:12 06:12 07:03 WBC 4.39 L (4.8-10.8) K/uL RBC 3.43 L (4.7-6.1) M/uL Hgb 9.9 L (14.0-18.0) g/dL Hct 30.7 L (42-52) % RDW Std Deviation 53.6 H (36.4-46.3) fL RDW Coeff of Jace 16.4 H (11.5-14.5) % Chloride 109 H (98-107) mmol/L Glucose 142 H (70-99) mg/dl POC Glucose 147 H (70-99) mg/dl Calcium 8.4 L (8.5-10.1) mg/dl Ur Leukocyte Esterase (Negative) U Epithel Cells (Auto) (0-5) /lpf 07/11/21 07/11/21 07/11/21 Range/Units 08:40 11:10 14:22 WBC (4.8-10.8) K/uL RBC (4.7-6.1) M/uL Hgb (14.0-18.0) g/dL Hct (42-52) % RDW Std Deviation (36.4-46.3) fL RDW Coeff of Jace (11.5-14.5) % Chloride (98-107) mmol/L Glucose (70-99) mg/dl POC Glucose 225 H 224 H (70-99) mg/dl Calcium (8.5-10.1) mg/dl Ur Leukocyte Esterase Trace H (Negative) U Epithel Cells (Auto) 10-20 H (0-5) /lpf
--- NOTE | 2021-07-11 13:10 | Fluoroscopy Report ---
FL video swallow HISTORY: Pneumonia. assess for aspiration TECHNIQUE: Video fluoroscopic evaluation of swallowing was performed in the AP and lateral projection s by the speech pathology staff. The patient is fed nectar-thick and thin liquid barium, a barium coa myla wafer, and barium pudding. FLUOROSCOPY TIME: 1 minute. A cine loop was submitted.. COMPARISON STUDY: None. FINDINGS: There is normal hyoid excursion and epiglottic deflection. No significant penetration or as piration identified. Swallowing function is within normal limits. IMPRESSION: 1. No aspiration identified. 2. Please see the speech pathologist report for detailed findings and recommendations. ACT 112: Negative or not required by law. Electronically signed by: Lane Leavitt M.D. 07/11/2021 1:08 PM
--- NOTE | 2021-07-11 14:27 | Pharmacy Report ---
Pharmacy Glycemic Short Note 2 - Date of Service July 11, 2021 - Glycemic Short BSG Results (Last 24 hours): 07/10/21 07/10/21 07/10/21 15:14 19:29 21:26 Glucose POC Glucose 184 H 145 H 179 H 07/10/21 07/11/21 07/11/21 23:30 01:34 03:35 Glucose POC Glucose 194 H 138 H 120 H 07/11/21 07/11/21 07/11/21 05:28 06:12 07:03 Glucose 142 H POC Glucose 126 H 147 H 07/11/21 11:10 Glucose POC Glucose 225 H OUTPATIENT ANTIDIABETIC REGIMEN: * Novolog mix 44 units with breakfast, 28 units with dinner * A1c 9.6 05/17/2021 ASSESSMENT: 07/11: * BSGs well controlled over the last 24 hrs * Received 5 units of Lantus and 10 units of Novolog yesterday * Fasting BSG well controlled at 147 mg/dL * No changes in insulin regimen today * Appears RN may have administered incorrect dose at lunch time for patient (used carb ratio as a correction factor) * Will have RN repeat BSG at 1500 (~2 hours after Novolog) to see if patient is low and treat per hypoglycemia protocol 07/10: * Pt with extremely brittle DM BSG control. * BSGs swing from 498 mg/dl to 68 mg/dl with 12 units of NovoLog last night * Typically, patient requires 18-25 units of Lantus per day for basal; however pt with minimal PO intake this admission and quite confused. Provider would like not more than 5-10 units of Lantus given per day. * Per previous admissions pt has done well with CF/CR of 30/10 respectively but likely PNA, confusion, illness, decreased etc is affecting insulin resistance. Will loosen CF to 40 to prevent another low bsg. * Provider is OK with BSGs 150-250 mg/dl. 07/09: * Patient admitted with pneumonia. Known to glycemic service from prior admission, T1DM per notes. Blood sugars low yesterday, dextrose fluids and D5 amp given. BSG down to 33 mg/dL last evening * Spoke with provider to discuss case. Agreeable to start very low Lantus dosing - provider wanting no more than 10 units x 1 now. I will add scale for HS if BSG trending up. Provider stating patient with poor oral intake currently. Other admission requiring closer to 18 units of basal * Plan to use same CF/CR as last admission PLAN FOR INPATIENT GLYCEMIC CONTROL: * Basal insulin * Lantus 5 units SC daily with dinner * Bolus insulin * NovoLog per scale ACHS or Q6hrs while NPO * Goal Range: Low 120 mg/dL - High 160 mg/dL * Correction Factor: 40 mg/dL/unit * Nutritional / Prandial insulin per carb ratio of 1 unit per 10 grams CHO consumed PLAN FOR DISCHARGE: * Given patient's inconsistency with PO intake and small amount of insulin required inpatient, recommended discontinuing Novolog Mix upon discharge. * Start Lantus 5 units SC daily at bedtime. * Start Novolog per low dose sliding scale: * BSG < 100 mg/dL = 0 units * BSG 100-150 mg/dL = 1 unit * BSG 150-200 mg/dL = 2 units * BSG 200-250 mg/dL = 3 units * BSG 250-300 mg/dL = 4 units * BSG > 300 mg/dL = 5 units and call MD/
[2021-07-11] MEDS: AMOXICILLIN/CLAVULANATE 875 MG TAB PO SCH (16:53)
[2021-07-11] MEDS: INSULIN GLARGINE SOLOSTAR 100 UNITS/ML 3 ML PEN SC SCH (18:12)
[2021-07-12] MEDS: AMOXICILLIN/CLAVULANATE 875 MG TAB PO SCH (07:54)
[2021-07-12] MEDS: risperiDONE 0.5 MG TABLET PO SCH ×2 (07:54→12:21)
[2021-07-12] MEDS: CLOPIDOGREL BISULFATE 75 MG TAB PO SCH (07:54)
[2021-07-12] MEDS: INSULIN ASPART PER UNIT SC SCH ×2 (08:00→12:25)
[2021-07-12] MEDS ORDERED: INSULIN GLARGINE SOLOSTAR 100 UNITS/ML 3 ML PEN SC ONE (09:00)
--- NOTE | 2021-07-12 11:46 | Discharge Summary ---
Date of Service July 12, 2021 Admission HPI Per Admitting Provider Patient is 70-year-old male with PMH DM, paroxysmal atrial fibrillation, depression, mood disorder, chronic anemia, HTN, h/o above knee amputation presented to ER from [facility] for hypoglycemia and altered mental status. History is obtained from ER staff and prior notes. I Attempted to call [facility] [place] however no answer. Patient with history of hospitalization 05/17-05/23/2021 for strokelike symptoms and possible UTI. At that time MRI showed acute infarct right posterior internal capsule and left parafalcine. His aspirin was changed to Plavix and Eliquis was continued. Med rec sent with patient today does not show that patient is on any Eliquis or statin. It is unknown if patient had his insulin or any food this morning. It is reported that today patient had BSG of 36. It is reported EMS gave D10 with BSG up to 99 which further dropped to 60 in ER and was given amp of D50. While in ER it is reported patient became more confused and was not moving his left side and at that time BSG was checked and was not hypoglycemic. CT head was obtained with no acute findings. During ER course patient continued to have altered mental status. ER staff reports that [facility] had stated that patient had some cough and there was concern for possible aspiration. Today in ER patient afebrile, P: 112, R: 25, BP 100/67 down to 61/46 and up to 97/62. Initially 86% on room air up to 94% on 4 L via nasal cannula. No leukocytosis. Chest x-ray with left greater than right opacities In ER given 500 mL NSS, cefepime, dextrose 50 mL Admission Exam Per Admitting Provider General: no noted distress on current oxygen, appears chronically ill Head: normocephalic, atraumatic Eyes: PERRL, unable to test EOM's, conjunctiva non-injected, anicteric ENT: normal inspection external ears, nose, mucous membranes mildly dry Neck: supple, trachea midline Lungs: diminished breath sounds throughout, currently on 4L oxygen via NC with sat 94% CV: tachycardia, no pretibial edema Abd: normal BS, soft, non-tender Ext: no cyanosis, no calf tenderness, + above-knee amputation noted, +toe amputation noted Neuro: Awake, does not answer questions, only says "don't do that" when his BP cuff inflates, Pt partially protrudes tongue, does not cooperate/participate in any further neuro testing at this time, Skin: warm, dry Principal Diagnosis Hypoglycemia Metabolic encephalopathy Pneumonia Sepsis Discharge Exam Constitutional Awake and alert Eyes PERRL, conjunctivae normal, anicteric sclerae Respiratory normal respiratory effort, lungs clear to auscultation Cardiovascular Rate/Rhythm: regular rate and regular rhythm S1 S2 Gastrointestinal (Abdomen) normal bowel sounds, soft, nontender, no hepatosplenomegaly Musculoskeletal Left BKA. No edema Right mid foot amputation Neurologic Awake and alert. Occasionally follows commands Discharge Data Allergies Allergy/AdvReac Type Severity Reaction Status Date / Time No Known Allergies Allergy Verified 07/08/21 09:59 Ordered Studies 07/08/21 12:08 CT angio head w con Stat CT angio neck with con Stat Three-vessel morphology of the thoracic aortic arch. Patent innominate and imaged subclavian arteries. The common carotid arteries are patent bilaterally. Moderate atherosclerotic plaque of the right carotid bulb and proximal right ICA is redemonstrated which again results in approximately 60-65% luminal narrowing of the proximal cervical segment. Atherosclerotic plaque of the cavernous and supraclinoid segments results in narrowing measuring up to approximately 50%. The middle and anterior cerebral arteries are patent. The vertebral arteries are codominant and appear widely patent. Mild luminal irregularity of the distal vertebral arteries is likely secondary to atherosclerotic vascular disease. The basilar and posterior cerebral arteries are also patent. Cerebral venous sinuses are patent. There is no abnormal intracranial enhancement. Age-related involutional changes with chronic microvascular ischemic disease. 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 Groundglass opacities are noted throughout the left lung. Unremarkable soft tissues of the neck. Dural calcifications are again noted. Healed chronic fracture deformity of the left clavicle. IMPRESSION: 1. Moderate atherosclerotic plaque of the right carotid bulb redemonstrated resulting in approximately 60-65% stenosis of the proximal cervical segment right ICA which is unchanged. 2. Otherwise unremarkable CTA of the head and neck. 3. Chronic intracranial findings. 4. Groundglass opacities of the imaged left lung are suggestive of pneumonia. CT head/brain wo con Stat Areas of decreased attenuation are present in the periventricular and subcortical white matter bilaterally consistent with small vessel ischemic disease. Generalized cerebral atrophy with commensurate enlargement of the ventricles, sulci, and cisterns is also present. There is no acute intracranial hemorrhage or evidence of acute territorial infarction. No shift of the midline structures, mass effect, or extra-axial abnormalities are shown. Atherosclerotic calcifications are present in the intracranial segments of the internal carotid arteries. Calcification of the falx is noted. Old lacunar infarct is noted in the left lentiform nucleus. Imaged portions of the paranasal sinuses and mastoid air cells are clear. The orbits appear normal. There are no acute fractures of the calvaria or scalp swelling. Impression: No acute intracranial hemorrhage, no evidence of acute territorial infarction or other acute intracranial disease process. 07/08/21 20:16 MR brain wo con Routine Extra-axial space: There is no evidence for a subdural hematoma, There are no extra-axial fluid collections. Ventricles and cisterns: The ventricles are again mildly dilated bilaterally. There is no evidence for midline shift or mass effect. Parenchyma: There is no evidence for an acute hemorrhage or infarct. Subacute infarcts are again seen involving the right posterior internal capsule and the left parafalcine white matter. These demonstrate abnormal signal on both diffusion weighted imaging and ADC mapping. There is normal gallardo-white differentiation. There is mild cerebral cortical atrophy present. There is bright signal seen on FLAIR weighted sequences within the centrum semiovale and periventricular white matter characteristic of remote small vessel disease. The sulci and gyri appear normal without effacement. The midline structures are unremarkable. The posterior fossa structures appear normal. There is no evidence for mass lesion. Osseous structures: The paranasal sinuses are well aerated. The mastoid air cells are well aerated. Soft tissues: No focal soft tissue abnormalities are identified. IMPRESSION: No acute intracranial abnormalities. Subacute infarcts are again identified within the posterior internal capsule on the right and the left parafalcine white matter as seen on the previous MRI. Cerebral cortical atrophy and remote small vessel disease are also again seen. 07/11/21 11:30 FL video swallow Routine There is normal hyoid excursion and epiglottic deflection. No significant penetration or aspiration identified. Swallowing function is within normal limits. IMPRESSION: 1. No aspiration identified. 2. Please see the speech pathologist report for detailed findings and recommendations. Hospital Course (1) Sepsis: (2) Pneumonia of both lungs: 70-year-old male with PMH DM, paroxysmal atrial fibrillation, depression, mood disorder, chronic anemia, HTN, h/o above knee amputation presented to ER from [facility] for hypoglycemia and altered mental status. CT head was obtained with no acute findings. ER staff reported that [facility] had stated that patient had some cough and there was concern for possible aspiration. In ER patient afebrile, P: 112, R: 25, BP 100/67 down to 61/46 and up to 97/62. Initially 86% on room air up to 94% on 4 L via nasal cannula. No leukocytosis. Chest x-ray with left greater than right opacities Lactate: 1.3. Procalcitonin: 6.8 Cultures negative so far Attempts to contact nursing who knows about patient were unsuccesful initially on admission Patient was treated with antibiotics for 5 days (3) Hypoglycemia: H/O DM A1c: 9.6 on 05/17/2021 Outpatient BSG of 36 reported. EMS gave D10 with BSG up to 99 which further dropped to 60 in ER and was given amp of D50. Further dropping of glucose in ER to 30's and given another dose dextrose Hypoglycemic episodes due to meds/ poor oral intake in setting of sepsis Hypoglycemic episodes have resolved On 07/11/21, I was able to speak with the nurse local area network administrator at the nursing facility today who reported that patient had hypoglycemic episode and was brought into the hospital due to being drowsy as well. She stated that patient has been having episodes of hypoglycemia sometimes due to his inconsistent oral intake while on insulin therapy. Patient was apparently on hospice at the facility hence, the discontinuation of certain medications including Eliquis. Patient home insulin 70/30 was discontinued and started on lantus and sliding scale on discharge as follows * Start Lantus 5 units SC daily at bedtime. * Start Novolog per low dose sliding scale: * * BSG < 100 mg/dL = 0 units * BSG 100-150 mg/dL = 1 unit * BSG 150-200 mg/dL = 2 units * BSG 200-250 mg/dL = 3 units * BSG 250-300 mg/dL = 4 units * BSG > 300 mg/dL = 5 units and call MD/DO I called the facility and communicated this. The sliding scale can be used depending on how much he eats and blood glucose. May be adjusted as needed (4) Metabolic encephalopathy: Likely secondary to hypoglycemia, underlying infection. Paroxysmal atrial fibrillation POSSIBLE ACUTE CVA H/O CVA Hospitalization in 05/2021. At that time MRI showed acute infarct right posterior internal capsule and left parafalcine. His aspirin was changed to Plavix and Eliquis was continued. MRI brain show subacute infarcts previously identified Eliquis had been discontinued due to being on hospice at facility [facility] On admission, Cr: 1.7 Got IVF [facility] resolved h/o depression, bipolar Continue risperidone Discharged back to [facility] Total Time Total Time Spent Total Time Spent (In Minutes): 45 Total Time Includes: Examination of the Patient, Discharge Planning, Medication Reconciliation and Other Discharge Plan Discharge Items Patient Disposition: Hospice - Medical Facility Reason For Visit: Hypoglycemia Discharge Diagnosis: Hypoglycemia Metabolic encephalopathy Pneumonia Sepsis Activity: Resume your previous activity Non-emergency contact: Primary Care Provider and Special Agent Call non-emergency contact if: you have any medication questions Follow-up/Referrals: [facility] [Primary Care Provider] - Diet: Carb Count or DM1 Addtl Attending Provider Instructions: Mr. Jaffe You were brought to the hospital from the nursing facility where he was on hospice for hypoglycemic episodes and altered mental status. You were evaluated and found to pneumonia. You were treated for these Your home insulin regimen were changed from insulin 70/30 to insulin glargine and NovoLog per sliding scale as follows: * Given patient's inconsistency with PO intake and small amount of insulin required inpatient, recommendeddiscontinuing Novolog Mix upon discharge. * Start Lantus 5 units SC daily at bedtime. * Start Novolog per low dose sliding scale: * * BSG < 100 mg/dL = 0 units * BSG 100-150 mg/dL = 1 unit * BSG 150-200 mg/dL = 2 units * BSG 200-250 mg/dL = 3 units * BSG 250-300 mg/dL = 4 units * BSG > 300 mg/dL = 5 units and call MD/DO It was a pleasure taking care of you. Pending Studies at Discharge: No Stand-Alone Forms: My [facility] Skilled Items Patient informed of condition?: Yes DNR: Yes Discharge Level of Care: Other Communicable Disease: No Discharge Prognosis: Stable Lines: None Urinary Catheter: No Medications and DC Order Prescriptions: New Lantus Solostar U-100 Insulin 100 unit/mL (3 mL) Insulin Pen 5 unit SC DAILY@1800 Qty: 15 RF: 0 insulin aspart U-100 [Novolog Flexpen U-100 Insulin] 100 unit/mL (3 mL) insulin pen See Rx Instructions .ROUTE .COMPLEX Qty: 15 RF: 0 (DME) pen needle, diabetic [BD Ultra-Fine Short Pen Needle] 31 gauge x 5/16" needle See Rx Instructions .Route Qty: 100 RF: 0 Continued ondansetron 4 mg tablet,disintegrating 4 mg PO Q8H PRN (Reason: nausea and vomiting) Qty: 10 RF: 0 risperidone 0.25 mg Tablet 0.25 mg PO BID RF: 0 Glucerna Shake Liquid 1 ea PO BID RF: 0 clopidogrel 75 mg Tablet 75 mg PO QAM Qty: 30 RF: 0 morphine concentrate 100 mg/5 mL (20 mg/mL) solution 10 mg sublingual Q2H PRN (Reason: Pain~Respiratory Distress) RF: 0 bisacodyl [Dulcolax (bisacodyl)] 10 mg suppository 1 mg MA DAILY PRN (Reason: Constipation) RF: 0 atropine 1 % drops 2 drp sublingual Q1H PRN (Reason: Relief terminal secrtions) RF: 0 lorazepam 2 mg/mL Concentrate 1 mg SUBLINGUAL Q4H PRN (Reason: relief/anxiety) RF: 0 Promethazine Gel 25mg/Ml 1 ml topical Q6H PRN (Reason: Nausea And Vomiting) RF: 0 Discontinued insulin asp prt-insulin aspart [Novolog Mix 70-30FlexPen U-100] 100 unit/mL (70-30) insulin pen See Rx Instructions .ROUTE .COMPLEX RF: 0 Discharge Orders: Discharge Order (Routine); Ordered 07/12/21 Ordered By: Keisha Mitchell Admission Data Admit Date/Time: 07/08/21 15:59 Attending Provider: Keisha Mitchell I. Admit Provider: Keisha Mitchell I. Primary Care Provider: [facility]
[2021-07-12] MEDS ORDERED: INSULIN GLARGINE SOLOSTAR 100 UNITS/ML 3 ML PEN SC SCH (12:00)
== END 2021-07-12 13:12 | disposition hospice, inpatient (51) | DRG 871 ==
LOC: ED 09:08 → EDINP 15:59 → 2S 07-10 21:16